=== PATIENT | male | born 1970 | race Caucasian/White ===

== ENCOUNTER 2017-05-10 16:30 | Outpatient (RCR) | payer MEDICARE, SELFPAY ==
--- NOTE | 2017-03-24 10:54 | HP.PTEVAL_ITS ---
Patient's Visit Information FERMÍN MORTON is a 46 year old M referred to Physical Therapy by JERARDO MURCIA with a diagnosis of Neuropathy/vertigo.. Date of Evaluation: 03/24/17 Physical Therapist: Nelson Garcia DPT, OC - Visit Plan Frequency: 1-2x /Week Duration: 4-6 Weeks Plan: 1-2x/week for 4 weeks for vestibular therapy, balance(as needed). Balance testing may be appropriate. Will also treat with LE exercises for stretch and muscle pump ankles as able. Next session check psoitional, possible BD and VOR ex. - Subjective Subjective: Has vertigo. Been having it for 15 years for insidous onset. Got underneath car 15 years ago and getting up he spun. Still spins with looking up and down, vibration from razor. Describes unsteady, lack of position feeling lasting a couple seconds. Sometimes when lies down at night. In between feels OK. Treated years ago with meclizine and still has some. Uses them intermittently. Activities are limtied in that he is worried about 2 yo and lots of movement at [employer] would throw him off. Walking at [employer] with a crowd can make it happen. Not changing over the years. Happens daily under the right coditions. Sleep is OK most of time after initial dizzyness subsides. Has neuropathy according to Dr. Silver. Probably from Diabetes. No falls, no stumbles but balance seems off. Feels strong. Does not work duk due to disability with deteriorating bones. Sits around alot, Goes to gym and does bike and elliptical. Treamill hurts ankles. Stay FIt 24. Able to do basic ADLs without too much problem as long as dizzyness stays away. - Pain ankles Pain Intensity (Out of 10): 0 Pain Intensity Range: 0, 7 Comment: had it for years. - Objective Walks into PT I, trasnfers with UE I, Wide BLANCA in stance. Steps are reciprocal with one rail. C/S AROM WFL and painfree today. - L hallpike. - nystagmus R HD but asymmetrical dizzyness for a few seconds. - roll test. Treated with Soto Wagner today. Oculomotor: unreamrkable, no gaze or head shake nystagmus. - head thrust. Pursuit and saccades appear normal. Has some mild transient symptoms with VOR but no functional problems. Seems to get some symptoms walking through busy gym mildly. LE strength 4+/5, Flexibility WFL, pt is obese. Sensation diminished to light touch in feet and toes. reflexes 1/3 patella and achilles. Coordination to reciprocal toe tap WNL. Very tired after climbing steps, neck feels tight a little bit. - Balance Scores Functional Gait Assessment Score: 25 % Disability: 16.6700 CATSIB Score (Max score 120 seconds): 81 - Goals Goal 1:: Vertigo 90% improved subjectively Goal Time Frame: 2-4 Weeks Goal 2:: Pt feel balance improved 50% and score 28/30 on FGA Goal Time Frame: 2-4 Weeks Goal 3:: I approp HEP for neuropathy, and vertigo as needed. Goal Time Frame: 4-6 Weeks Goal 4:: Pt back to exercise at [employer] tolerated. Goal Time Frame: 4-6 Weeks - Rehabilitation Potential Physical Therapy Diagnosis: Questionable etiology of symptoms, positional vs. unilateral vestibulopathy vs. non vest causes. Rehabilitation Potential: Questionable - Anticipated Interventions Patient/Client Instruction: Educate patient on: Condition, Plan of Care For the Purpose of:: To improve safety with gait Other: to decrease dizzy Therapeutic Exercise to Include: Balance training, Active ROM Comment: VOR and positional ex/treatments. For the Purpose of:: To improve safety Other: to decrease symptoms. Thank you for the opportunity to evaluate your patient. For Medicare and Medicare HMO plans, please review the plan of care and approve it. It will need to be FAXED BACK to us at [phone] for Medicare purposes. Please let me know if there are questions or concerns regarding this plan of care. Physician Signature: Date:
--- NOTE | 2017-05-10 17:01 | HP.PTDCSUM ---
HP - PT D/C Summary It has been my pleasure to treat FERMÍN MORTON under orders from JERARDO MURCIA, for the diagnosis of Neuropathy/vertigo. for a total of 5 visit(s). Discharge Date: Please see the following information for a summary of their discharge status. - Subjective Subjective: Went to neuro two weeks ago and doc said he had neuropathy. Moderate neuropathy and gave medicine for the pains. Dizzyness has been good. No falls , no stumbles, no trips. Just has to be careful. - Pain ankles Pain Intensity (Out of 10): 2 - Overall Improvement % Improvement: 90 - Objective Objective/Function: 28/30 FGA, doing excellent with this, much improved and good score considering his neuropathy. Walks I and steps reciprocally needing a rail to descend. - positional tests. No problems with dizzy. - Goals Goal 1:: Vertigo 90% improved subjectively Goal Progress: Goal Met Goal 2:: Pt feel balance improved 50% and score 28/30 on FGA Goal Progress: Goal Met Goal 3:: I approp HEP for neuropathy, and vertigo as needed. Goal Progress: Goal Met Goal 4:: Pt back to exercise at [employer] tolerated. Goal Progress: Goal Met - Plan Plan: D/C, - D/C Information If there are questions or concerns regarding this patient's physical therapy, please feel free to call me at [phone]. Thank you for the referral of this patient. Sincerely, Nelson Garcia, DPT, OC
== END 2017-05-10 19:00 | disposition home or self-care (01) ==
LOC: PT 16:30
PROVIDERS: Family Provider Family Medicine; PCP Family Medicine
DX: G62.9 Polyneuropathy, unspecified (principal); R42 Dizziness and giddiness
CPT/HCPCS: 97162; 97530

== ENCOUNTER → 2017-08-24 10:01 | Outpatient (CLI) | payer MEDICARE, SELFPAY ==
--- NOTE | 2017-08-24 10:01 | DT_ITS ---
This patient was seen during an EMR downtime August 21, 2017 - August 28, 2017. This patient may have a combination of paper and electronic documentation or all paper documentation. All documentation is viewable within the e-chart portion of [employer] for each patient visit.
[2017-08-29 01:27] LABS: Hemoglobin A1c 9.1 % (4.2-6.3)
[2017-08-29 01:28] LABS: BUN 12 mg/dL (7-18); BUN/Creat Ratio 15.6 RATIO (10-20); Creatinine, Serum 0.77 mg/dL (0.70-1.30); EST Glomerular Filtration Rate 115 mL/min (>60); Est Glom Filt Rate - Afr Amer 139 mL/min (>60); Glucose 211 mg/dL (74-106); Hematocrit 48.1 % (40-54); Hemoglobin 16.3 g/dl (13.0-16.5); Mean Corp Hgb Conc 33.9 g/gl (32-36); Mean Corpuscular Hgb 28.5 pg (27.0-32.0); Mean Corpuscular Volume 84.2 fL (80-94); Mean Platelet Vol. 12.5 fl (6.2-12.0); Platelet Count 229 K/mm3 (150-450); RBC Distribution Width CV 13.6 % (11.6-14.6); RBC Distribution Width SD 41.9 fl (35.1-43.9); Red Blood Count 5.71 M/mm3 (4.6-6.2); Scan Indicated on CBC? Y/N NO; White Blood Count 9.5 K/mm3 (4.4-11.0)
[2017-08-29 01:29] LABS: ALB/GLOB Ratio 0.9 RATIO (0.9-2.4); AST(SGOT) 11 U/L (15-37); Alanine Aminotransfer ALT/SGPT 31 U/L (16-61); Albumin, Serum 3.4 g/dL (3.2-5.0); Alkaline Phosphatase 115 U/L (45-117); Calcium,Total 8.4 mg/dL (8.5-10.1); Cholesterol 172 mg/dL (200); Globulin 3.8 g/dL (2.2-4.2); Protein, Total 7.2 g/dL (6.4-8.2)
[2017-08-29 01:30] LABS: Anion Gap 9 (5-15); Chloride 104 mmol/L (98-107); High Density Lipoprotein 35 mg/dL; Potassium 3.9 mmol/L (3.5-5.1); Sodium Level 140 mmol/L (136-145); Triglycerides 127 mg/dL; Very Low Density Lipoprotein 25 mg/dL (5-40)
== END ==
PROVIDERS: Family Provider Family Medicine; PCP Family Medicine; Visit Provider Family Medicine
DX: E11.40 Type 2 diabetes mellitus with diabetic neuropathy, unspecified (principal); Z79.4 Long term (current) use of insulin
CPT/HCPCS: 36415; 80053; 80061; 83036; 85027

== ENCOUNTER → 2018-04-23 10:40 | Outpatient (CLI) | payer MEDICARE, SELFPAY ==
[2018-04-23 11:08] LABS: Absolute Lymphocyte Count 1.72 X10^3/ul (0.83-4.51); Basophil# 0.03 X10^3/uL; Basophil% 0.4 % (0-1); Eosinophil# 0.07 X10^3/uL; Hematocrit 43.9 % (40-54); Hemoglobin 14.8 g/dl (13.0-16.5); Lymphocyte # 1.72 X10^3/ul (4.0); Lymphocyte % 23.7 % (19-41); Mean Corp Hgb Conc 33.7 g/gl (32-36); Mean Corpuscular Hgb 28.6 pg (27.0-32.0); Mean Corpuscular Volume 84.7 fL (80-94); Mean Platelet Vol. 11.5 fl (6.2-12.0); Monocyte# 0.44 X10^3/uL; Monocyte% 6.1 % (0-10); Neutrophil # 4.97 X10^3/uL (2.7-7.7); Neutrophil % 68.5 % (47-70); Platelet Count 235 K/mm3 (150-450); RBC Distribution Width CV 13.2 % (11.6-14.6); RBC Distribution Width SD 40.8 fl (35.1-43.9); Red Blood Count 5.18 M/mm3 (4.6-6.2); White Blood Count 7.3 K/mm3 (4.4-11.0)
[2018-04-23 11:12] LABS: POSITIVE COUNT NO; POSITIVE DIFFERENTIAL NO; POSITIVE MORPHOLOGY NO
[2018-04-23 11:33] LABS: Hemoglobin A1c 8.8 % (4.2-6.3)
[2018-04-23 11:45] LABS: ALB/GLOB Ratio 1.1 RATIO (0.9-2.4); AST(SGOT) 13 U/L (15-37); Alanine Aminotransfer ALT/SGPT 28 U/L (16-61); Albumin, Serum 3.7 g/dL (3.2-5.0); Alkaline Phosphatase 111 U/L (45-117); Anion Gap 10 (5-15); BUN 13 mg/dL (7-18); BUN/Creat Ratio 15.6 RATIO (10-20); Calcium,Total 8.6 mg/dL (8.5-10.1); Chloride 103 mmol/L (98-107); Cholesterol 180 mg/dL (200); Creatinine, Serum 0.84 mg/dL (0.70-1.30); EST Glomerular Filtration Rate 104 mL/min (>60); Est Glom Filt Rate - Afr Amer 126 mL/min (>60); Globulin 3.4 g/dL (2.2-4.2); Glucose 229 mg/dL (74-106); High Density Lipoprotein 38 mg/dL; Potassium 4.3 mmol/L (3.5-5.1); Protein, Total 7.1 g/dL (6.4-8.2); Sodium Level 139 mmol/L (136-145); Triglycerides 129 mg/dL; Very Low Density Lipoprotein 26 mg/dL (5-40)
== END ==
PROVIDERS: Family Provider Nurse Practitioner Family; PCP Nurse Practitioner Family; Referring Provider Nurse Practitioner Family; Visit Provider Nurse Practitioner Family
DX: E11.42 Type 2 diabetes mellitus with diabetic polyneuropathy (principal); E78.5 Hyperlipidemia, unspecified; I10 Essential (primary) hypertension
CPT/HCPCS: 36415; 80053; 80061; 83036; 85025

== ENCOUNTER → 2018-10-22 07:56 | Outpatient (CLI) | payer MEDICARE, SELFPAY ==
[2016-11-04 09:09] VITALS: BMI 63.6
[2018-10-22 09:39] LABS: Absolute Lymphocyte Count 1.96 X10^3/uL (0.83-4.51); Absolute Neutrophil Count 4.6 X10^3/uL (2.0-7.7); Basophil# 0.05 X10^3/uL; Basophil% 0.7 % (0-1); Eosinophil# 0.11 X10^3/uL; Eosinophils% 1.5 % (0-5); Hematocrit 44.4 % (40-54); Hemoglobin 14.6 g/dL (13.0-16.5); Lymphocyte # 1.96 X10^3/ul (4.0); Lymphocyte % 27.1 % (19-41); Mean Corp Hgb Conc 32.9 g/dL (32-36); Mean Corpuscular Hgb 28.5 pg (27.0-32.0); Mean Corpuscular Volume 86.7 fL (80-94); Mean Platelet Vol. 12.2 fl (6.2-12.0); Monocyte# 0.45 X10^3/uL; Monocyte% 6.2 % (0-10); NRBC Flagged by Analyzer 0 % (0-5); Neutrophil # 4.62 X10^3/uL (2.7-7.7); Neutrophil % 64.1 % (47-70); Platelet Count 226 K/mm3 (150-450); RBC Distribution Width CV 13.2 % (11.6-14.6); RBC Distribution Width SD 41.6 fl (35.1-43.9); Red Blood Count 5.12 M/mm3 (4.6-6.2); White Blood Count 7.2 K/mm3 (4.4-11.0)
[2018-10-22 09:52] LABS: AST(SGOT) 17 U/L (15-37); Alanine Aminotransfer ALT/SGPT 29 U/L (16-61); Albumin, Serum 3.5 g/dL (3.2-5.0); Alkaline Phosphatase 110 U/L (45-117); Anion Gap 7 (5-15); BUN 14 mg/dL (7-18); BUN/Creat Ratio 16.2 RATIO (10-20); Calcium,Total 8.6 mg/dL (8.5-10.1); Chloride 107 mmol/L (98-107); Cholesterol 178 mg/dL (200); Creatinine, Serum 0.86 mg/dL (0.70-1.30); EST Glomerular Filtration Rate 100 mL/min (>60); Est Glom Filt Rate - Afr Amer 121 mL/min (>60); Globulin 3.6 g/dL (2.2-4.2); Glucose 218 mg/dL (74-106); High Density Lipoprotein 39 mg/dL; Potassium 3.8 mmol/L (3.5-5.1); Protein, Total 7.1 g/dL (6.4-8.2); Sodium Level 140 mmol/L (136-145); Triglycerides 99 mg/dL; Very Low Density Lipoprotein 20 mg/dL (5-40)
== END ==
PROVIDERS: Family Provider Nurse Practitioner Family; PCP Nurse Practitioner Family; Referring Provider Nurse Practitioner Family; Visit Provider Nurse Practitioner Family
DX: I10 Essential (primary) hypertension (principal); E78.5 Hyperlipidemia, unspecified
CPT/HCPCS: 36415; 80053; 80061; 85025

== ENCOUNTER → 2019-04-26 07:40 | Outpatient (CLI) | payer MEDICARE, SELFPAY ==
[2016-11-04 09:09] VITALS: BMI 63.6
[2019-04-26 08:11] LABS: Hematocrit 46.2 % (40-54); Hemoglobin 15.4 g/dL (13.0-16.5); Mean Corp Hgb Conc 33.3 g/dL (32-36); Mean Corpuscular Hgb 28.5 pg (27.0-32.0); Mean Corpuscular Volume 85.4 fL (80-94); Platelet Count 255 K/mm3 (150-450); RBC Distribution Width CV 12.9 % (11.6-14.6); RBC Distribution Width SD 39.5 fl (35.1-43.9); Red Blood Count 5.41 M/mm3 (4.6-6.2); White Blood Count 8.3 K/mm3 (4.4-11.0)
[2019-04-26 08:30] LABS: Microalbumin,Random Urine 19.3 mg/L (NO RANGE EST.); Microalbumin:Creatinine Ratio 16.5 mg/g CRE (<30 mg/g CRE)
[2019-04-26 08:41] LABS: AST(SGOT) 23 U/L (15-37); Alanine Aminotransfer ALT/SGPT 40 U/L (16-61); Albumin, Serum 3.6 g/dL (3.2-5.0); Alkaline Phosphatase 110 U/L (45-117); Anion Gap 4 (5-15); BUN 12 mg/dL (7-18); Calcium,Total 8.8 mg/dL (8.5-10.1); Chloride 104 mmol/L (98-107); Creatinine, Serum 0.86 mg/dL (0.70-1.30); EST Glomerular Filtration Rate 101 mL/min (>60); Est Glom Filt Rate - Afr Amer 122 mL/min (>60); Globulin 3.6 g/dL (2.2-4.2); Glucose 191 mg/dL (74-106); Potassium 4.2 mmol/L (3.5-5.1); Protein, Total 7.2 g/dL (6.4-8.2); Sodium Level 139 mmol/L (136-145)
[2019-04-26 08:49] LABS: Hemoglobin A1c 7.6 % (4.2-6.3)
== END ==
PROVIDERS: PCP Nurse Practitioner Family; Referring Provider Nurse Practitioner Family; Visit Provider Nurse Practitioner Family
DX: E11.9 Type 2 diabetes mellitus without complications (principal); I10 Essential (primary) hypertension
CPT/HCPCS: 36415; 80053; 82043; 82570; 83036; 85027

== ENCOUNTER → 2019-10-26 07:00 | Outpatient (CLI) | payer MEDICARE, SELFPAY ==
[2019-10-26 07:51] LABS: Hematocrit 46.1 % (40-54); Hemoglobin 15.2 g/dL (13.0-16.5); Mean Corpuscular Hgb 28.7 pg (27.0-32.0); Mean Corpuscular Volume 87.1 fL (80-94); Mean Platelet Vol. 11.4 fl (6.2-12.0); Platelet Count 259 K/mm3 (150-450); RBC Distribution Width CV 13.1 % (11.6-14.6); RBC Distribution Width SD 40.8 fl (35.1-43.9); Red Blood Count 5.29 M/mm3 (4.6-6.2); White Blood Count 7.9 K/mm3 (4.4-11.0)
[2019-10-26 08:26] LABS: AST(SGOT) 13 U/L (15-37); Alanine Aminotransfer ALT/SGPT 32 U/L (16-61); Albumin, Serum 3.5 g/dL (3.2-5.0); Alkaline Phosphatase 102 U/L (45-117); Anion Gap 4 (5-15); BUN 13 mg/dL (7-18); BUN/Creat Ratio 15.4 RATIO (10-20); Calcium,Total 8.2 mg/dL (8.5-10.1); Chloride 101 mmol/L (98-107); Cholesterol 203 mg/dL (200); Creatinine, Serum 0.85 mg/dL (0.70-1.30); EST Glomerular Filtration Rate 102 mL/min (>60); Est Glom Filt Rate - Afr Amer 123 mL/min (>60); Globulin 3.5 g/dL (2.2-4.2); Glucose 253 mg/dL (74-106); High Density Lipoprotein 40 mg/dL; Potassium 3.6 mmol/L (3.5-5.1); Sodium Level 136 mmol/L (136-145); Triglycerides 90 mg/dL; Very Low Density Lipoprotein 18 mg/dL (5-40)
[2019-10-26 08:50] LABS: Hemoglobin A1c 9.4 % (3.8-5.6)
== END ==
PROVIDERS: PCP Nurse Practitioner Family; Referring Provider Nurse Practitioner Family; Visit Provider Nurse Practitioner Family
DX: E11.9 Type 2 diabetes mellitus without complications (principal); E78.5 Hyperlipidemia, unspecified; I10 Essential (primary) hypertension
CPT/HCPCS: 36415; 80053; 80061; 83036; 85027

== ENCOUNTER → 2020-05-02 07:06 | Outpatient (CLI) | payer MEDICARE, SELFPAY ==
[2020-05-02 08:16] LABS: Hematocrit 45.6 % (40-54); Hemoglobin 14.8 g/dL (13.0-16.5); Mean Corp Hgb Conc 32.5 g/dL (32-36); Mean Corpuscular Volume 86.2 fL (80-94); Mean Platelet Vol. 11.1 fl (6.2-12.0); Platelet Count 254 K/mm3 (150-450); RBC Distribution Width CV 12.7 % (11.6-14.6); RBC Distribution Width SD 39.8 fl (35.1-43.9); Red Blood Count 5.29 M/mm3 (4.6-6.2); White Blood Count 7.3 K/mm3 (4.4-11.0)
[2020-05-02 08:37] LABS: AST(SGOT) 16 U/L (15-37); Alanine Aminotransfer ALT/SGPT 35 U/L (16-61); Albumin, Serum 3.4 g/dL (3.2-5.0); Alkaline Phosphatase 102 U/L (45-117); Anion Gap 6 (5-15); BUN 13 mg/dL (7-18); BUN/Creat Ratio 15.7 RATIO (10-20); Calcium,Total 8.4 mg/dL (8.5-10.1); Chloride 104 mmol/L (98-107); Cholesterol 199 mg/dL (200); Creatinine, Serum 0.83 mg/dL (0.70-1.30); EST Glomerular Filtration Rate 104 mL/min (>60); Est Glom Filt Rate - Afr Amer 126 mL/min (>60); Globulin 3.4 g/dL (2.2-4.2); Glucose 222 mg/dL (74-106); High Density Lipoprotein 47 mg/dL; Potassium 3.8 mmol/L (3.5-5.1); Protein, Total 6.8 g/dL (6.4-8.2); Sodium Level 139 mmol/L (136-145); Triglycerides 83 mg/dL; Very Low Density Lipoprotein 17 mg/dL (5-40)
[2020-05-02 08:38] LABS: Hemoglobin A1c 9.9 % (3.8-5.6)
== END ==
PROVIDERS: PCP Nurse Practitioner Family; Referring Provider Nurse Practitioner Family; Visit Provider Nurse Practitioner Family
DX: E11.9 Type 2 diabetes mellitus without complications (principal); E78.5 Hyperlipidemia, unspecified; I10 Essential (primary) hypertension
CPT/HCPCS: 36415; 80053; 80061; 83036; 85027

== ENCOUNTER 2020-10-07 15:45 | Emergency (ER) | payer MEDICARE, SELFPAY ==
[2020-10-07 15:46] VITALS: BP 114/85; PULSE 134; RESP 24; TEMP 37.2; O2SAT 94; BMI 53.6
[2020-10-07] MEDS: MethylPREDNISolone 125 MG/2 ML Vial IV (15:58)
[2020-10-07] MEDS: DiphenhydrAMINE 50 MG/ML Syringe IV (15:59)
[2020-10-07 16:00] VITALS: BP 107/69; PULSE 107; PULSE 108; RESP 22; RESP 26; O2SAT 93
[2020-10-07] MEDS: Ipratropium/Albuterol Sulfate 3 ML AMPUL.NEB INHALATION (16:07)
--- NOTE | 2020-10-07 16:11 | EDS_ITS ---
HPI <Dr. Rachel Carpenter, DO - Last Filed: 10/07/20 16:37> History of Present Illness Chief Complaint: Allergic Reaction Detail of Chief Complaint: Allergic reaction to bee sting Informant: patient Narrative Narrative: Patient presents to the emergency department with allergic reaction that started about 20 minutes ago. Patient states that he was helping a friend with some bushes when he was stung by bees on the right hand and right arm as well as the left arm. Patient complaining of difficulty breathing. No syncope. He is never had an anaphylactic reaction like this before. Patient has history of asthma as well as type 2 diabetes. Prior similar symptoms: No PFSH <Dr. Rachel Carpenter, DO - Last Filed: 10/07/20 16:37> PFSH Home Medications glyburide 5 mg PO BIDCM 08/18/13 [History Last Taken 03/17/16 18:00] insulin glargine [Lantus SoloStar Pen] 80 units SUBCUT QHS 08/18/13 [History Last Taken 03/17/16 18:00] pioglitazone 45 mg PO DAILY 08/18/13 [History Last Taken 03/17/16 08:00] rosuvastatin [Crestor] 40 mg PO QHS 08/18/13 [History Last Taken 03/17/16 18:00] sitagliptin [Januvia] 100 mg PO DAILY 08/18/13 [History Last Taken 03/17/16 08:00] tramadol 50 mg PO Q6H PRN PRN 08/18/13 [History Last Taken 03/16/16 09:00] meclizine 25 mg PO 4X/DAY PRN PRN 03/17/16 [History Last Taken Unknown] Liraglutide [Victoza 2-Jamal] 1.2 mg SUBCUT DAILY 11/03/16 [History Last Taken Unknown] diphenhydramine HCl [Benadryl] 25 mg PO TID #20 cap 10/07/20 [Rx Last Taken Unknown] epinephrine 0.3 mg IM Q15M PRN #2 ea 10/07/20 [Rx Last Taken Unknown] famotidine [Pepcid] 20 mg PO BID #10 tab 10/07/20 [Rx Last Taken Unknown] prednisone 60 mg PO DAILY #15 tab 10/07/20 [Rx Last Taken Unknown] Allergy/AdvReac Type Severity Reaction Status Date / Time bee venom protein (honey bee) Allergy Swelling Verified 10/07/20 15:46 Penicillins Allergy RASH/LONG Verified 10/07/20 15:46 TIME TO WAKE ME UP Social History Smoking Status: Never smoker ROS <Dr. Rachel Carpenter, DO - Last Filed: 10/07/20 16:37> ROS ED ROS Narrative Allergic reaction Constitutional Constitutional ED: Reports systems reviewed and no addt'l complaints, except as documented; Denies body ache(s), change in weight or chills Eyes Eyes: Denies acute decrease in peripheral vision, change in vision, double visio n or loss of vision ENT ENT ED: Reports none; Denies ear pain, lip swelling, loss taste/smell, neck elias n, otalgia or sore throat Cardiovascular Cardiovascular: Reports none; Denies abdominal pain, chest pain with activity, leg edema, lightheadedness, palpitations, rapid heart rate or syncope Respiratory/Chest Respiratory/Chest: Reports none and dyspnea; Denies change in mental status, dry cough, hemoptysis, shortness of breath at rest or shortness of breath with exertion Gastrointestinal Gastrointestinal: Reports none; Denies abdominal pain, change in stool character, diarrhea, hematemesis, hematochezia, melena, rectal bleeding or vomiting Genitourinary Genitourinary ED: Reports none; Denies abdominal discomfort, anuria, dysuria, genital pain or polyuria Musculoskeletal Musculoskeletal: Reports none; Denies arthralgias, back pain, difficulty walking, extremity pain, muscle weakness or myalgias Integumentary Reports none; Denies abscess or rash Neurologic Neurologic: Reports none; Denies abnormal gait, confusion, focal weakness, freq uent falls, headache(s), loss of vision, numbness, paresthesias, radicular pain, vertigo or weakness Psychiatric Psychiatric: Reports systems reviewed and no addt'l complaints, except as documented and none; Denies behavioral changes, confusion, difficulty concentrating, hallucinations, suicidal ideation, tactile hallucinations or visual hallucinations Endocrine Endocrinology: Denies none, cold intolerance, excessive sweating, fatigue or heat intolerance Hematologic/Lymphatic Hematologic/Lymphatic: Reports none; Denies anemia, easy bleeding or easy bruising Allergic/Immunologic Allergic/Immunologic ED: Denies as per HPI, none, lip swelling, mouth swelling, throat swelling, tongue swelling or hives EXAM <Dr. Rachel Carpenter DO - Last Filed: 10/07/20 16:37> Physical Exam Const Vital Signs: 10/07/20 15:46 10/07/20 16:00 10/07/20 18:05 Temperature 98.9 F Temperature Source Temporal Pulse Rate 134 H 107 H 102 H Respiratory Rate 24 H 26 H 22 H Blood Pressure 114/85 H 107/69 142/63 H Blood Pressure Mean 94 81 89 Pulse Ox 94 93 98 Oxygen Delivery Method Room Air Nasal Cannula Nasal Cannula Oxygen Flow Rate (L/min) 4 2 10/07/20 20:29 Temperature Temperature Source Pulse Rate 104 H Respiratory Rate 14 Blood Pressure 136/83 H Blood Pressure Mean 100 Pulse Ox 94 Oxygen Delivery Method Room Air Oxygen Flow Rate (L/min) Positive well nourished and well developed General Appearance ED: well developed and NAD HEENT Reports TM's clear and moist mucous membranes normocephalic and atraumatic; Negative for trauma or tenderness Tympanic Membrane ED: Yes TM's clear Eyes PERRL and EOMs intact bilaterally General Eye ED: Negative for pale conjunctiva or scleral icterus Neck no lymphadenopathy, supple and no JVD General: Negative for tenderness Chest Wall inspection of chest normal and palpation of chest normal Chest: Negative for tenderness Resp clear to auscultation bilaterally Resp Narrative: Tachypnea Effort and Inspection: Negative for respiratory distress or pain with movement Auscultation: wheezes; Negative for rhonchi or diminished lung sounds Cardio regular rate, regular rhythm, S1 normal heart sound, S2 normal heart sound and no murmurs Peripheral Pulses: pulses 2+ throughout GI normal to inspection, nondistended, normoactive bowel sounds, soft to palpation, non-tender, non-distended and no masses Back/Spine no CVA tenderness and no thoracic nor lumbar tenderness Extremity normal to inspection General Extremety ED: Negative for edema General Extremity: Negative for edema Neuro oriented x3, CN's II-XII intact bilaterally, no sensory deficits noted and gait normal Sensorium / Orientation: awake, alert, oriented to person, oriented to place and oriented to time Motor Exam: strength 5/5 throughout and strength abnormal Psych mental status grossly normal Skin no wounds Skin Narrative: Diffuse erythema and flushing <Dr. Keagan Omer MD - Last Filed: 10/07/20 20:50> Physical Exam Const Vital Signs: 10/07/20 15:46 10/07/20 16:00 10/07/20 18:05 Temperature 98.9 F Temperature Source Temporal Pulse Rate 134 H 107 H 102 H Respiratory Rate 24 H 26 H 22 H Blood Pressure 114/85 H 107/69 142/63 H Blood Pressure Mean 94 81 89 Pulse Ox 94 93 98 Oxygen Delivery Method Room Air Nasal Cannula Nasal Cannula Oxygen Flow Rate (L/min) 4 2 10/07/20 20:29 Temperature Temperature Source Pulse Rate 104 H Respiratory Rate 14 Blood Pressure 136/83 H Blood Pressure Mean 100 Pulse Ox 94 Oxygen Delivery Method Room Air Oxygen Flow Rate (L/min) MDM <Dr. Rachel Carpenter DO - Last Filed: 10/07/20 16:37> [facility] Narrative Medical decision making narrative: Patient was given 0.3 mg of epi IM on arrival. IV line was established and was started on Solu-Medrol, Benadryl, and Pepcid. Patient will require an observation period in the emergency department. Care of patient turned over to evening physician awaiting observation. Reevaluation. Lab Data Labs: Laboratory Results - last 24 hr 10/07/20 18:34 POC Glucose 346 H <Dr. Keagan Omer MD - Last Filed: 10/07/20 20:50> [facility] Narrative Medical decision making narrative: Patient was turned over to me pending recheck. We have checked him multiple times here his symptoms of dyspnea completely resolved. The only symptoms he has had is itching. We watched him for multiple hours. He is gotten better. We walked him. He does not desatur ate. We will get him home at this time. We will start him on steroids. I will write for EpiPen also. We discussed reasons to return. Lab Data Labs: Laboratory Results - last 24 hr 10/07/20 18:34 POC Glucose 346 H Discharge Plan Triage Chief Complaint: Allergic Reaction ED Provider: Keagan Omer Dx/Rx/DC Orders Clinical Impression: Anaphylactic reaction to bee sting Instructions: ED Anaphylaxis Prescriptions: New prednisone 20 mg tablet 60 mg PO DAILY Qty: 15 RF: 0 diphenhydramine HCl [Benadryl] 25 mg capsule 25 mg PO TID Qty: 20 RF: 0 epinephrine 0.3 mg/0.3 mL auto-injector 0.3 mg IM Q15M PRN (Reason: anaphylaxis) Qty: 2 RF: 0 famotidine [Pepcid] 20 mg tablet 20 mg PO BID Qty: 10 RF: 0 No Action glyburide 5 MG tablet 5 mg PO BIDCM RF: 0 pioglitazone 45 MG tablet 45 mg PO DAILY RF: 0 tramadol 50 MG tablet 50 mg PO Q6H PRN PRN (Reason: Pain) RF: 0 rosuvastatin [Crestor] 40 MG tablet 40 mg PO QHS RF: 0 sitagliptin [Januvia] 100 MG tablet 100 mg PO DAILY RF: 0 insulin glargine [Lantus Solostar U-100 Insulin] 100 UNITS/ML insulin pen 80 units subcut QHS RF: 0 meclizine 25 MG tablet 25 mg PO 4X/DAY PRN PRN (Reason: Dizziness) RF: 0 Liraglutide [Victoza 2-Jamal] 0.6 MG/0.1 ML Ml 1.2 mg subcut DAILY RF: 0 Primary Care Provider: Pasha Cummins NP Referrals: Pasha Cummins NP, [employer] [Primary Care Provider] - Disposition Disposition: Home, Self Care
[2020-10-07] MEDS: Ondansetron 4 MG/2 ML Vial IV (16:12)
[2020-10-07] MEDS: Famotidine 200 MG/20 ML MDV 20 MG in 0.9% Normal Saline (Pres. free 8 ML 300 MG IV (16:22)
[2020-10-07 18:05] VITALS: BP 142/63; PULSE 102; RESP 22; O2SAT 98
[2020-10-07] MEDS: hydrOXYzine PAM 25 MG Capsule PO (18:29)
[2020-10-07 18:41] LABS: Bedside Glucose 346 mg/dL (70-110)
[2020-10-07 19:32] VITALS: O2SAT 94
[2020-10-07 20:29] VITALS: BP 136/83; PULSE 104; RESP 14; O2SAT 94
[2020-10-07 20:58] VITALS: BP 136/83; PULSE 106; RESP 22; O2SAT 93
== END 2020-10-07 21:03 | disposition home or self-care (01) ==
PROVIDERS: Emergency Provider Emergency Medicine; PCP Nurse Practitioner Family
DX: T63.441A Toxic effect of venom of bees, accidental (unintentional), initial encounter (principal); T78.2XXA Anaphylactic shock, unspecified, initial encounter; L29.9 Pruritus, unspecified; R06.02 Shortness of breath; Y92.9 Unspecified place or not applicable; E11.9 Type 2 diabetes mellitus without complications; Z79.4 Long term (current) use of insulin
CPT/HCPCS: 82962; 94640; 96365; 96372; 96375; 99283; A4216; J2405; J3490

== ENCOUNTER → 2020-11-07 06:55 | Outpatient (CLI) | payer MEDICARE, SELFPAY ==
[2020-11-07 07:32] LABS: Hematocrit 44.2 % (40-54); Hemoglobin 14.4 g/dL (13.0-16.5); Mean Corp Hgb Conc 32.6 g/dL (32-36); Mean Corpuscular Hgb 28.6 pg (27.0-32.0); Mean Corpuscular Volume 87.7 fL (80-94); Mean Platelet Vol. 11.2 fl (6.2-12.0); Platelet Count 256 K/mm3 (150-450); RBC Distribution Width CV 13.2 % (11.6-14.6); RBC Distribution Width SD 42.4 fl (35.1-43.9); Red Blood Count 5.04 M/mm3 (4.6-6.2); White Blood Count 6.9 K/mm3 (4.4-11.0)
[2020-11-07 07:54] LABS: ALB/GLOB Ratio 0.9 RATIO (0.9-2.4); AST(SGOT) 13 U/L (15-37); Alanine Aminotransfer ALT/SGPT 34 U/L (16-61); Albumin, Serum 3.2 g/dL (3.2-5.0); Alkaline Phosphatase 113 U/L (45-117); Anion Gap 5 (5-15); BUN 11 mg/dL (7-18); BUN/Creat Ratio 14.7 RATIO (10-20); Calcium,Total 8.2 mg/dL (8.5-10.1); Chloride 107 mmol/L (98-107); Cholesterol 202 mg/dL (200); Creatinine, Serum 0.75 mg/dL (0.70-1.30); EST Glomerular Filtration Rate 117 mL/min (>60); Est Glom Filt Rate - Afr Amer 141 mL/min (>60); Globulin 3.4 g/dL (2.2-4.2); Glucose 253 mg/dL (74-106); High Density Lipoprotein 44 mg/dL; Potassium 3.9 mmol/L (3.5-5.1); Protein, Total 6.6 g/dL (6.4-8.2); Sodium Level 139 mmol/L (136-145); Thyroid Stim Hormone (TSH) 1.13 uIU/mL (0.358-3.74); Triglycerides 107 mg/dL; Very Low Density Lipoprotein 21 mg/dL (5-40)
[2020-11-07 08:49] LABS: Hemoglobin A1c 10.7 % (3.8-5.6)
[2020-11-09 09:22] LABS: Vitamin D,25 Hydroxy 30.3 ng/mL
[2020-11-09 17:15] LABS: Lipoprotein A 113.5 nmol/L (<75.0)
== END ==
PROVIDERS: PCP Nurse Practitioner Family; Visit Provider Nurse Practitioner Family
DX: I10 Essential (primary) hypertension (principal); E11.9 Type 2 diabetes mellitus without complications; E78.5 Hyperlipidemia, unspecified; E66.01 Morbid (severe) obesity due to excess calories; Z68.43 Body mass index [BMI] 50.0-59.9, adult
CPT/HCPCS: 36415; 80053; 80061; 82306; 83036; 83695; 84443; 85027

== ENCOUNTER 2021-06-26 06:59 | Outpatient (CLI) | payer MEDICARE, SELFPAY ==
[2021-06-26 07:47] LABS: Hemoglobin 14.7 g/dL (13.0-16.5); Mean Corp Hgb Conc 33.4 g/dL (32-36); Mean Corpuscular Hgb 28.8 pg (27.0-32.0); Mean Corpuscular Volume 86.1 fL (80-94); Mean Platelet Vol. 10.9 fl (6.2-12.0); Platelet Count 250 K/mm3 (150-450); RBC Distribution Width CV 13.2 % (11.6-14.6); RBC Distribution Width SD 41.1 fl (35.1-43.9); Red Blood Count 5.11 M/mm3 (4.6-6.2); White Blood Count 7.3 K/mm3 (4.4-11.0)
[2021-06-26 08:06] LABS: Hemoglobin A1c 8.6 % (3.8-5.6)
[2021-06-26 08:11] LABS: AST(SGOT) 14 U/L (15-37); Alanine Aminotransfer ALT/SGPT 28 U/L (16-61); Albumin, Serum 3.5 g/dL (3.2-5.0); Alkaline Phosphatase 89 U/L (45-117); Anion Gap 4 (5-15); BUN 17 mg/dL (7-18); BUN/Creat Ratio 18.8 RATIO (10-20); Chloride 104 mmol/L (98-107); Cholesterol 207 mg/dL (200); EST Glomerular Filtration Rate 94 mL/min (>60); Est Glom Filt Rate - Afr Amer 114 mL/min (>60); Globulin 3.4 g/dL (2.2-4.2); Glucose 214 mg/dL (74-106); High Density Lipoprotein 42 mg/dL; Iron 67 ug/dL (65-175); Iron Binding Capacity,Total 273 ug/dL (250-450); PSA,Total - Annual Screen 1.04 ng/mL (0.00-4.00); Potassium 4.2 mmol/L (3.5-5.1); Protein, Total 6.9 g/dL (6.4-8.2); Sodium Level 137 mmol/L (136-145); Triglycerides 105 mg/dL; Very Low Density Lipoprotein 21 mg/dL (5-40)
== END 2021-06-26 23:59 | disposition home or self-care (01) ==
LOC: MTLAB 07:00 → LAB 07:28
PROVIDERS: PCP Nurse Practitioner Family; Referring Provider Nurse Practitioner Family; Visit Provider Nurse Practitioner Family
DX: E11.9 Type 2 diabetes mellitus without complications (principal); D64.9 Anemia, unspecified; I10 Essential (primary) hypertension; E78.5 Hyperlipidemia, unspecified; E55.9 Vitamin D deficiency, unspecified; Z12.5 Encounter for screening for malignant neoplasm of prostate
CPT/HCPCS: 36415; 80053; 80061; 82306; 83036; 83540; 83550; 84153; 85027; G0103

== ENCOUNTER → 2021-07-29 | Outpatient (CLI) | payer MEDICARE, SELFPAY ==
--- NOTE | 2021-07-29 15:16 | RAD_ITS ---
STUDY: X-RAY CHEST REASON FOR EXAM: Male, 50 years old. COUGH/FEVER, CHILLS TECHNIQUE: PA and lateral views of the chest. COMPARISON: Comparison is made with prior study dated 10/13/2011. FINDINGS: The lungs are clear and expanded. There is no demonstrated pleural abnormality. There is borderline cardiomegaly. Normal mediastinum and patrice. Normal visualized pulmonary arteries. There is atherosclerotic calcification of the aortic arch with tortuosity. There are diffuse degenerative changes of the visualized thoracic spine. Normal visualized ribs, clavicles, and shoulders. There is no demonstrated abnormality of the visualized soft tissue structures of the upper abdomen. RAD/Chest PA and Lateral IMPRESSION: Borderline cardiomegaly. No acute abnormality is seen. Electronically Signed: Arturo Burnette MD at 15:30 EDT ,
[2021-07-29 15:58] LABS: Hematocrit 44.8 % (40-54); Hemoglobin 14.7 g/dL (13.0-16.5); Mean Corp Hgb Conc 32.8 g/dL (32-36); Mean Corpuscular Hgb 28.5 pg (27.0-32.0); Mean Corpuscular Volume 86.8 fL (80-94); Mean Platelet Vol. 11.2 fl (6.2-12.0); Platelet Count 221 K/mm3 (150-450); RBC Distribution Width CV 12.9 % (11.6-14.6); RBC Distribution Width SD 40.9 fl (35.1-43.9); Red Blood Count 5.16 M/mm3 (4.6-6.2); White Blood Count 6.4 K/mm3 (4.4-11.0)
[2021-07-29 16:06] LABS: ALB/GLOB Ratio 0.9 RATIO (0.9-2.4); AST(SGOT) 27 U/L (15-37); Alanine Aminotransfer ALT/SGPT 39 U/L (16-61); Albumin, Serum 3.4 g/dL (3.2-5.0); Alkaline Phosphatase 101 U/L (45-117); Anion Gap 8 (5-15); BUN 10 mg/dL (7-18); BUN/Creat Ratio 9.4 RATIO (10-20); CRP 3.99 mg/L (0.0-3.0); Calcium,Total 8.5 mg/dL (8.5-10.1); Chloride 102 mmol/L (98-107); Creatinine, Serum 1.06 mg/dL (0.70-1.30); EST Glomerular Filtration Rate 78 mL/min (>60); Est Glom Filt Rate - Afr Amer 94 mL/min (>60); Globulin 3.8 g/dL (2.2-4.2); Glucose 410 mg/dL (74-106); Potassium 3.9 mmol/L (3.5-5.1); Protein, Total 7.2 g/dL (6.4-8.2); Sodium Level 137 mmol/L (136-145)
[2021-07-29 16:36] LABS: D-Dimer Quantitative (DVT/PE) < 0.27 FEU/ug/m (0.27-0.49)
== END | disposition home or self-care (01) ==
PROVIDERS: PCP Nurse Practitioner Family; Visit Provider Nurse Practitioner Family
DX: R05.8 Other specified cough (principal); R06.89 Other abnormalities of breathing; R50.9 Fever, unspecified; R06.2 Wheezing; Z20.822 Contact with and (suspected) exposure to COVID-19
CPT/HCPCS: 36415; 71046; 80053; 85027; 85379; 86140

== ENCOUNTER 2021-08-04 10:03 | Inpatient (IN) | payer MEDICARE, SELFPAY ==
[2021-08-04] VITALS (12 sets, daily range): BP systolic 110–175; BP diastolic 72–100; PULSE 99–118; RESP 13–30; TEMP 36.7–37.3; O2SAT 91–99; BMI 58.1; BMI 57.9
--- NOTE | 2021-08-04 11:04 | EKG12_ITS ---
Test Reason : Blood Pressure : / mmHG Vent. Rate : 109 BPM Atrial Rate : 109 BPM P-R Int : 158 ms QRS Dur : 088 ms QT Int : 330 ms P-R-T Axes : 045 -55 032 degrees QTc Int : 444 ms Sinus tachycardia Left axis deviation Inferior infarct , age undetermined Abnormal ECG Confirmed by ABRAM SPRAGUE, SAKSHI ([id number]), tape editor ANGELICA VALERIO ([id number]) on 08/06/2021 10:54:13 A M Referred By: Confirmed By:LOUIE VALVERDE MD
[2021-08-04 11:35] LABS: ALB/GLOB Ratio 0.5 RATIO (0.9-2.4); AST(SGOT) 18 U/L (15-37); Alanine Aminotransfer ALT/SGPT 32 U/L (16-61); Albumin, Serum 2.5 g/dL (3.2-5.0); Alkaline Phosphatase 116 U/L (45-117); Anion Gap 16 (5-15); BUN 21 mg/dL (7-18); BUN/Creat Ratio 22.2 RATIO (10-20); Calcium,Total 9.1 mg/dL (8.5-10.1); Chloride 94 mmol/L (98-107); Creatinine, Serum 0.95 mg/dL (0.70-1.30); EST Glomerular Filtration Rate 89 mL/min (>60); Est Glom Filt Rate - Afr Amer 108 mL/min (>60); Globulin 5.3 g/dL (2.2-4.2); Glucose 287 mg/dL (74-106); Potassium 3.6 mmol/L (3.5-5.1); Protein, Total 7.8 g/dL (6.4-8.2); Sodium Level 132 mmol/L (136-145); Troponin-I HS 7 pg/mL (3.0-78.0)
--- NOTE | 2021-08-04 11:45 | RAD_ITS ---
STUDY: X-RAY CHEST REASON FOR EXAM: Male, 50 years old. SOB TECHNIQUE: Single AP portable view of the chest. COMPARISON: Comparison is made with prior study 07/29/2021. FINDINGS: EKG likely are seen. There now is evidence of heterogeneous consolidation in the right lower lobe with blunting of the right costophrenic angle. Normal size heart. Normal mediastinum and patrice. Normal visualized pulmonary arteries. There is atherosclerotic calcification of the aortic arch with tortuosity. There are diffuse degenerative changes of the visualized thoracic spine. Normal visualized ribs, clavicles, and shoulders. There is no demonstrated abnormality of the visualized soft tissue structures of the upper abdomen. RAD/Chest 1 View (Portable) IMPRESSION: Heterogeneous right lower lobe consolidation. Blunting of the right costophrenic angle. Electronically Signed: Arturo Burnette MD at 12:16 EDT ,
--- NOTE | 2021-08-04 11:57 | NURSING ---
See downtime documentation for this patient.
[2021-08-04 12:16] LABS: Hematocrit 44.8 % (40-54); Hemoglobin 14.7 g/dL (13.0-16.5); Mean Corp Hgb Conc 32.8 g/dL (32-36); Mean Corpuscular Hgb 28.5 pg (27.0-32.0); Mean Corpuscular Volume 86.8 fL (80-94); Red Blood Count 5.16 M/mm3 (4.6-6.2); White Blood Count 16.2 K/mm3 (4.4-11.0)
[2021-08-04 12:17] LABS: Mean Platelet Vol. 11.6 fl (6.2-12.0); Platelet Count 341 K/mm3 (150-450)
[2021-08-04 12:18] LABS: Absolute Lymphocyte Count 0.91 X10^3/uL (0.83-4.51); Absolute Neutrophil Count 13.8 X10^3/uL (2.0-7.7); Basophil# 0.07 X10^3/uL; Basophil% 0.4 % (0-1); Eosinophil# 0.01 X10^3/uL; Eosinophils% 0.1 % (0-5); Lymphocyte # 0.91 X10^3/ul (0.83-4.51); Lymphocyte % 5.6 % (19-41); Monocyte% 6.2 % (0-10); Neutrophil # 13.79 X10^3/uL (2.7-7.7); Neutrophil % 84.9 % (47-70)
[2021-08-04 12:20] LABS: D-Dimer Quantitative (DVT/PE) 1.72 FEU/ug/m (0.27-0.49)
--- NOTE | 2021-08-04 14:11 | ED.VIS.DYS ---
HPI History of Present Illness Chief Complaint: Shortness of Breath Informant: patient Onset/Context/Timing Onset: Days Context: gradual Timing: Continuous Quality: Positive for Dyspnea on exertion Current Severity: Moderate Maximum Severity: Moderate Worsened by: Exertion Relieved by: Nothing Associated Symptoms cough and yellow sputum Chest Pain: Positive for None Narrative Narrative: 50-year-old male history of lung disease, enlarged heart and insulin-dependent diabetic. States that for last week he has had progressively worsening shortness of breath. He has had wheezing. Also a cough of yellowish sputum and some rib cage pain that he thinks he pulled a muscle in his ribs from coughing. States that his blood sugars have also been running high close to 500. Denies any hemoptysis. No history of DVT or PE. PE Risk Factors: Negative for Cancer, OCP + Smoking + > 35, Prior DVT or PE, Recent immobilization, Recent surgery and Recent travel Prior similar symptoms: Yes Recent Illness/Hospitalization: No PFSH PFSH Medical History (Updated 08/04/21 @ 15:[address] Jelani Taylor MD) Diabetes mellitus, type 2 GERD (gastroesophageal reflux disease) HLD (hyperlipidemia) Morbid obesity Home Medications glyburide 5 mg PO BIDCM 08/18/13 [History Last Taken 03/17/16 18:00] insulin glargine [Lantus SoloStar Pen] 80 units SUBCUT QHS 08/18/13 [History Last Taken 03/17/16 18:00] pioglitazone 45 mg PO DAILY 08/18/13 [History Last Taken 03/17/16 08:00] rosuvastatin [Crestor] 40 mg PO QHS 08/18/13 [History Last Taken 03/17/16 18:00] sitagliptin [Januvia] 100 mg PO DAILY 08/18/13 [History Last Taken 03/17/16 08:00] tramadol 50 mg PO Q6H PRN PRN 08/18/13 [History Last Taken 03/16/16 09:00] meclizine 25 mg PO 4X/DAY PRN PRN 03/17/16 [History Last Taken Unknown] Liraglutide [Victoza 2-Jamal] 1.2 mg SUBCUT DAILY 11/03/16 [History Last Taken Unknown] diphenhydramine HCl [Benadryl] 25 mg PO TID #20 cap 10/07/20 [Rx Last Taken Unknown] epinephrine 0.3 mg IM Q15M PRN #2 ea 10/07/20 [Rx Last Taken Unknown] famotidine [Pepcid] 20 mg PO BID #10 tab 10/07/20 [Rx Last Taken Unknown] prednisone 60 mg PO DAILY #15 tab 10/07/20 [Rx Last Taken Unknown] Allergy/AdvReac Type Severity Reaction Status Date / Time bee venom protein (honey bee) Allergy Swelling Verified 10/07/20 15:46 Penicillins Allergy RASH/LONG Verified 10/07/20 15:46 TIME TO WAKE ME UP Social History Smoking Status: Never smoker ROS ROS ED ROS Narrative Shortness of breath. Cough. Yellowish sputum. Review of Systems ROS Unobtainable: Denies due to encephalopathy Constitutional Constitutional ED: Denies fever(s) Eyes Eyes: Denies change in vision ENT ENT ED: Denies ear pain Cardiovascular Cardiovascular: Denies chest pain or palpitations Respiratory/Chest Respiratory/Chest: Reports cough, dyspnea and sputum Gastrointestinal Gastrointestinal: Denies abdominal pain, diarrhea, nausea or vomiting Genitourinary Genitourinary ED: Denies dysuria Musculoskeletal Musculoskeletal: Denies myalgias Integumentary Denies rash Neurologic Neurologic: Denies headache(s) Psychiatric Psychiatric: Denies depression Endocrine Endocrinology: Denies polyuria Hematologic/Lymphatic Hematologic/Lymphatic: Denies easy bruising Allergic/Immunologic Allergic/Immunologic ED: Denies urticaria EXAM Physical Exam Narrative Exam Narrative: 50-year-old male vital signs stable. Pulse ox 91% on room air borderline hypoxia. Temperature is 99. He is tachycardic at 116. H EENT exam unremarkable. Neck nontender. Lungs have few scattered expiratory wheezes. No rales or rhonchi. Heart tachycardic rate about 115 no murmur. Abdomen morbidly obese but soft. Nontender normal bowel sounds no peritoneal signs. Moving all 4 extremities. Calves are nontender without edema or cords. Neurologically is awake and alert with no focal motor deficits Const Vital Signs: 08/04/21 10:03 08/04/21 10:20 08/04/21 12:11 Temperature 99 F Temperature Source Temporal Pulse Rate 116 H 118 H Respiratory Rate 18 13 Respiratory Effort Short of Breath Respiratory Depth Normal Respiratory Pattern Tachypnea Blood Pressure 175/87 H 115/85 H Blood Pressure Mean 116 95 Pulse Ox 91 95 Oxygen Delivery Method Room Air Room Air Room Air 08/04/21 13:17 08/04/21 15:39 Temperature Temperature Source Pulse Rate 114 H 108 H Respiratory Rate 30 H 21 H Respiratory Effort Respiratory Depth Respiratory Pattern Blood Pressure 174/72 H 123/86 H Blood Pressure Mean 106 98 Pulse Ox 97 97 Oxygen Delivery Method Room Air Positive well nourished, well developed and obese; Negative for cachectic, contractures or unkempt General Appearance ED: well developed and NAD; Negative for unkempt, cachectic, contractures or pallor Nutritional Appearance: obese; Negative for cachectic HEENT Reports moist mucous membranes atraumatic; Negative for trauma Eyes PERRL and EOMs intact bilaterally General Eye ED: Negative for pale conjunctiva or scleral icterus Neck no lymphadenopathy, supple, no meningeal signs and no JVD General: Negative for tenderness Resp normal respiratory effort and No clear to auscultation bilaterally Auscultation: wheezes; Negative for rales or rhonchi Cardio regular rhythm, S1 normal heart sound, S2 normal heart sound and no murmurs; Negative for regular rate Rate: tachycardic GI non-tender, non-distended and no masses Auscultation: normoactive bowel sounds Palpation: soft; Negative for tender, guarding or rebound tenderness present Back/Spine no CVA tenderness and normal to inspection General Back: Negative for CVA tenderness or tenderness Extremity normal to inspection General Extremety ED: Negative for edema or tenderness General Extremity: Negative for edema Neuro oriented x3 Sensorium / Orientation: alert, oriented to person, oriented to place and oriented to time; Negative for orientation impaired, confused, lethargic or stuporous Motor Exam: strength 5/5 throughout Psych mental status grossly normal Appearance: Negative for unkempt Thought Process: normal thought process Skin no wounds General Skin Exam: Negative for jaundice or pallor Lesions: no lesions Rashes: no rashes MDM MDM MDM Narrative Medical decision making narrative: 50-year-old male with shortness of breath. Also with expiratory wheezes. Treated with IV Solu-Medrol DuoNeb and albuterol aerosols. Will get chest x-ray and labs. Multiple repeat exams patient is doing well. Sitting upright in a chair. He will be started on Rocephin and Zithromax. Blood cultures are being obtained. I have the hospitalist on page for admission. I The CTA of the chest and awaiting the formal radiology interpretation. Lab Data Attestation: I reviewed the patient's lab results. Lab results narrative: CBC shows a white count of 16.2. H&H of 14 and 44. Platelets of 341. D-dimer is elevated 1.72. Sodium 132. Gap is 16 BUN and creatinine are 21 and 0.9. Liver enzymes show total bilirubin 1.6. Troponin high-sensitivity is normal at 7. Chest x-ray shows a right lower lobe density. CTA performed. Awaiting official read. Looks like a right lower lobe pneumonia. Labs: Laboratory Results - last 24 hr 08/04/21 08/04/21 08/04/21 10:56 10:56 10:56 WBC 16.2 H RBC 5.16 Hgb 14.7 Hct 44.8 MCV 86.8 MCH 28.5 MCHC 32.8 RDW Std Deviation 41.0 RDW Coeff of Anna 13.0 Plt Count 341 MPV 11.6 Immature Gran % (Auto) 2.800 H Neut % (Auto) 84.9 H Lymph % (Auto) 5.6 L [place] % (Auto) 6.2 Eos % (Auto) 0.1 Baso % (Auto) 0.4 Absolute Neuts (auto) 13.8 H Absolute Lymphs (auto) 0.91 D-Dimer Quant (PE/DVT) 1.72 H* Sodium 132 L Potassium 3.6 Chloride 94 L Carbon Dioxide 22.0 Anion Gap 16 H BUN 21 H Creatinine 0.95 Est GFR (MDRD) Af Amer 108 Est GFR (MDRD) Non-Af 89 BUN/Creatinine Ratio 22.2 H Glucose 287 H Lactic Acid Calcium 9.1 Total Bilirubin 1.60 H AST 18 ALT 32 Alkaline Phosphatase 116 Troponin I High Sens 7 Total Protein 7.8 Albumin 2.5 L Globulin 5.3 H Albumin/Globulin Ratio 0.5 L 08/04/21 14:50 WBC RBC Hgb Hct MCV MCH MCHC RDW Std Deviation RDW Coeff of Anna Plt Count MPV Immature Gran % (Auto) Neut % (Auto) Lymph % (Auto) [place] % (Auto) Eos % (Auto) Baso % (Auto) Absolute Neuts (auto) Absolute Lymphs (auto) D-Dimer Quant (PE/DVT) Sodium Potassium Chloride Carbon Dioxide Anion Gap BUN Creatinine Est GFR (MDRD) Af Amer Est GFR (MDRD) Non-Af BUN/Creatinine Ratio Glucose Lactic Acid 1.3 Calcium Total Bilirubin AST ALT Alkaline Phosphatase Troponin I High Sens Total Protein Albumin Globulin Albumin/Globulin Ratio Radiography Chest X-Ray - ED: 1 View, Read by ED Physician, Read by Radiologist, Bony Structures, Chronic Changes and Right Infiltrate Diagnostic Testing: Clinical Impression(s) from Imaging Studies Chest X-Ray 08/04/21 11:45 IMPRESSION: Heterogeneous right lower lobe consolidation. Blunting of the right costophrenic angle. Electronically Signed: Arturo Burnette MD at 12:16 EDT , Chest CTA 08/04/21 14:18 IMPRESSION: Dense heterogeneous consolidation in the posterior aspect of the right middle lobe with atelectasis and/or infiltrate at the right lower lobe. Mild degree of increased markings at the left lung base. Electronically Signed: Arturo Burnette MD at 15:25 EDT , Chest x-ray shows a right lower lobe density interpreted by myself and the radiologist. Portable, single view. CAT scan being obtained. Rhythm Strip Rhythm Strip: Sinus Tach Rate: 109 Ectopy: None EKG Initial EKG: Attestation: I personally reviewed and interpreted this EKG as follows: Interpretation: No Acute Injury Pattern and Sinus Tachycardia Comments: Sinus tachycardia rate of 109. No acute signs of [place] or ischemia. Discharge Plan Dx/Rx/DC Orders Clinical Impression: Pneumonia, History of diabetes mellitus, Hypoxia, Acute dyspnea Disposition Disposition: [facility]
--- NOTE | 2021-08-04 14:18 | CT_ITS ---
STUDY: CTA CHEST REASON FOR EXAM: Male, 50 years old. RLL Mass vs Pneumonia RADIATION DOSAGE (If Supplied By Facility): CTDIvol = ( 19.74 ) mGy, DLP = ( 701.24 ) mGycm TECHNIQUE: The examination was performed with the intravenous administration of IV 100mL Isovue-370. Post-processing of the angiographic images was performed, with multiplanar reformation and 3D reconstruction. Individualized dose optimization techniques were used for this CT. COMPARISON: None. FINDINGS: Normal enhancement of the main pulmonary artery and right and left pulmonary arteries. Normal enhancement of the bilateral peripheral pulmonary arteries. There is no demonstrated pulmonary embolism. There is atherosclerotic calcification of the aortic arch with tortuosity. There is no demonstrated aortic dissection. There are calcifications of the coronary arteries. Normal mediastinum. Normal hilar regions. Normal visualized trachea and bronchi. Mild volume loss in the right lower lobe. There is heterogeneous consolidation in the posterior aspect of the right middle lobe. Loculated pleural effusion in the right hemithorax. Atelectasis and/or infiltrate at the right lung base. Mild increased markings at the left lung base. Normal chest wall structures. There are degenerative changes of thoracic spine. Normal visualized upper abdomen. CT/CTA Chest W/WO Contrast IMPRESSION: Dense heterogeneous consolidation in the posterior aspect of the right middle lobe with atelectasis and/or infiltrate at the right lower lobe. Mild degree of increased markings at the left lung base. Electronically Signed: Arturo Burnette MD at 15:25 EDT ,
[2021-08-04] MEDS: Ceftriaxone 1 GM/50 ML BAG IV (14:44)
[2021-08-04 15:33] LABS: Lactic Acid 1.3 mmol/L (0.4-1.9)
--- NOTE | 2021-08-04 15:57 | PCM.HP.STD ---
HPI - General General Date of Admission: 08/04/21 Date of Service: 08/04/21 Chief Complaint: Cough, dyspnea. HPI Narrative The patient is a 50 y/o M w/ PMHx: Morbid Obesity, HLD, HTN, GERD, Diabetes mellitus type II who presents to the [facility] ED on 08/04/21 with history of several days of progressively worsening dyspnea, worse with exertion with productive cough of yellow sputum which has been worsening with recent wheezing and associated pleuritic chest discomfort with concurrent hyperglycemia up to blood sugars of 500 prompting eventual ED evaluation. He did states subjective fevers as well as 3 days of diarrhea with last diarrheal episode the day prior to current presentation. Work-up in the ED included T 99, heart rate 116, BP 175/87, respiratory rate 18, initially 91% on room air with respiratory rate increasing up to 30, CBC with WC 16.2, hemoglobin 14.7, platelet 341 with left shift, D-dimer 1.72, CMP with sodium 132, chloride 94, BUN/creatinine 12/0.95, anion gap 16, glucose 287, T bili 1.60 otherwise hepatic profile not marked appearing, troponin 7, lactic acid 1.3, chest x-ray with heterogeneous right lower lobe consolidation and blunting the right costophrenic angle, blood culture x2 pending per ED, EKG w/ sinus tachycardia with no acute evidence of ischemia, CTPA w/ dense heterogeneous consolidation posterior aspect right middle lobe with atelectasis and/or infiltrate right lower lobe with mild degree increased markings left lung base. In the ED patient administered IV rocephin and azithromycin. Bld Cx x 2 pending per ED. Discussed with ED and he noted intention UA, acetone. [facility] Medical History (Updated 08/04/21 @ 16:[address] Diana Krause MD) Diabetes mellitus, type 2 Former tobacco use GERD (gastroesophageal reflux disease) HLD (hyperlipidemia) HTN (hypertension) Morbid obesity NICHOLE treated with BiPAP Home Medications insulin glargine [Lantus SoloStar Pen] 55 units SUBCUT BID 08/18/13 [History Last Taken 03/17/16 18:00] rosuvastatin [Crestor] 10 mg PO QHS 08/18/13 [History Last Taken 03/17/16 18:00] meclizine 25 mg PO 4X/DAY PRN PRN 03/17/16 [History Last Taken Unknown] epinephrine 0.3 mg IM Q15M PRN #2 ea 10/07/20 [Rx Last Taken Unknown] albuterol sulfate 2 puff INHALATION Q6H PRN PRN 08/04/21 [History Last Taken Unknown] azithromycin 250 mg PO DAILY 08/04/21 [History Last Taken Unknown] gabapentin 400 mg PO TID 08/04/21 [History Last Taken Unknown] guaifenesin [Mucus Relief ER] 600 mg PO Q12H PRN PRN 08/04/21 [History Last Taken Unknown] insulin aspart U-100 [Novolog Flexpen U-100 Insulin] 20 - 25 sliding scale dose SUBCUT BID 08/04/21 [History Last Taken Unknown] levocetirizine 5 mg PO QHS 08/04/21 [History Last Taken Unknown] valsartan 160 mg PO DAILY 08/04/21 [History Last Taken Unknown] Allergy/AdvReac Type Severity Reaction Status Date / Time bee venom protein (honey bee) Allergy Swelling Verified 10/07/20 15:46 Penicillins Allergy RASH/LONG Verified 10/07/20 15:46 TIME TO WAKE ME UP Family History (Updated 08/04/21 @ 16:[address] Diana Krause MD) Mother Lung cancer with associated tobacco use history. Father Heart disease CHF (congestive heart failure) Hypertension Surgical History (Updated 08/04/21 @ 16:[address] Diana Krause MD) S/P appendectomy Social History (Updated 08/04/21 @ 16:[address] Diana Krause MD) household members: spouse Smoking Status: Former smoker how long ago did patient quit smoking: Quit 30-33 years prior, started 1.5 ppd at age 9. alcohol intake: never substance use type: does not use ROS ROS Narrative Admission Review of Systems: CONSTITUTIONAL: No weight loss, chills, + subjective fever, weakness or fatigue. HEENT: Eyes: No visual loss, blurred vision, double vision or yellow sclerae. Ears, Nose, Throat: No hearing loss, sneezing, congestion, runny nose or sore throat. SKIN: No rash or itching, lesions, wounds. CARDIOVASCULAR: No chest pain, chest pressure or chest discomfort, palpitations, edema, orthopnea, syncopal events. RESPIRATORY: + Shortness of breath, cough with productive sputum, wheezing, No hemoptysis. GASTROINTESTINAL: + Anorexia, diarrhea, No nausea, vomiting, abdominal pain, melena, BRBPR. GENITOURINARY: No dysuria, frequency, urgency or retention. NEUROLOGICAL: No headache, dizziness, syncope, paralysis, ataxia, numbness or tingling in the extremities, focal weakness, change in bowel or bladder control, seizure. MUSCULOSKELETAL: + muscle, back pain, joint pain or stiffness. HEMATOLOGIC: No anemia, bleeding or bruising. LYMPHATICS: No enlarged nodes. No history of splenectomy. PSYCHIATRIC: No history of depression or anxiety. ENDOCRINOLOGIC: No reports of sweating, cold or heat intolerance. No polyuria or polydipsia. ALLERGIES: No history of asthma, hives, eczema or rhinitis. Vital Signs Vital Signs Vital Signs: 08/04/21 10:03 08/04/21 10:20 08/04/21 12:11 Temperature 99 F Temperature Source Temporal Pulse Rate 116 H 118 H Respiratory Rate 18 13 Respiratory Effort Short of Breath Respiratory Depth Normal Respiratory Pattern Tachypnea Blood Pressure 175/87 H 115/85 H Blood Pressure Mean 116 95 Pulse Ox 91 95 Oxygen Delivery Method Room Air Room Air Room Air 08/04/21 13:17 08/04/21 15:39 Temperature Temperature Source Pulse Rate 114 H 108 H Respiratory Rate 30 H 21 H Respiratory Effort Respiratory Depth Respiratory Pattern Blood Pressure 174/72 H 123/86 H Blood Pressure Mean 106 98 Pulse Ox 97 97 Oxygen Delivery Method Room Air Weight Weight: 360 lb Body Mass Index (BMI) 58.1 Physical Exam Narrative Physical Examination: General: Awake, alert, oriented x 3 and cooperative, seated upright in the ED bed, fatigued and ill-appearing, increased work of breathing and accessory muscle usage, evidence of respiratory distress Skin: Normal color, normal turgor, no icterus, no cyanosis. HEENT: AT/NC, EOMI, PERRLA, dry MM, no carotid bruits or JVD noted; however, thickened neck makes evaluation. Lungs: Diminished, greater right mid to base, increased work of breathing and accessory muscle usage noted, occasional end expiratory wheezing, more so upper airways, no rhonchi or rales. Heart: Mildly tachycardic with regular rhythm; no gallop, rub audible. Abdomen: Soft, morbidly obese, NTTP, ND, distant normal BS, no obvious evidence of HSM however habitus makes evaluation difficult Extremities: No cyanosis, clubbing, or edema. Neurological: Patient awake, alert, oriented as noted, cognitive function intact; pupils equally reactive to light and accommodation, cranial nerves II-XII grossly normal, moving all 4 extremities, no focal deficits, strength severely global decrease secondary to acute presentation Psychiatric: Affect appears fatigued, ill-appearing, evidence of respiratory distress, no acute evidence of depressive or anxiety feelings. Results Lab / Micro Data Result Diagrams: 08/04/21 10:56 08/04/21 10:56 Labs: Laboratory Results - last 24 hr 08/04/21 10:56: Sodium 132 L, Potassium 3.6, Chloride 94 L, Carbon Dioxide 22.0, Anion Gap 16 H, BUN 21 H, Creatinine 0.95, Est GFR (MDRD) Af Amer 108, Est GFR (MDRD) Non-Af 89, BUN/Creatinine Ratio 22.2 H, Glucose 287 H, Calcium 9.1, Total Bilirubin 1.60 H, AST 18, ALT 32, Alkaline Phosphatase 116, Troponin I High Sens 7, Total Protein 7.8, Albumin 2.5 L, Globulin 5.3 H, Albumin/Globulin Ratio 0.5 L 08/04/21 10:56: WBC 16.2 H, RBC 5.16, Hgb 14.7, Hct 44.8, MCV 86.8, MCH 28.5, MCHC 32.8, RDW Std Deviation 41.0, RDW Coeff of Anna 13.0, Plt Count 341, MPV 11.6, Immature Gran % (Auto) 2.800 H, Neut % (Auto) 84.9 H, Lymph % (Auto) 5.6 L, [place] % (Auto) 6.2, Eos % (Auto) 0.1, Baso % (Auto) 0.4, Absolute Neuts (auto) 13.8 H, Absolute Lymphs (auto) 0.91 08/04/21 10:56: D-Dimer Quant (PE/DVT) 1.72 H* 08/04/21 14:50: Lactic Acid 1.3 Rhythm Strip Rhythm Strip: Sinus Tach Rate: 109 Ectopy: None Radiology Impression Chest X-Ray 08/04/21 11:45 IMPRESSION: Heterogeneous right lower lobe consolidation. Blunting of the right costophrenic angle. Electronically Signed: Arturo Burnette MD at 12:16 EDT , Chest CTA 08/04/21 14:18 IMPRESSION: Dense heterogeneous consolidation in the posterior aspect of the right middle lobe with atelectasis and/or infiltrate at the right lower lobe. Mild degree of increased markings at the left lung base. Electronically Signed: Arturo Burnette MD at 15:25 EDT , Assessment & Plan Assessment/Plan (1) Acute respiratory failure with hypoxia: (2) Pneumonia: QUALIFIERS: Pneumonia type: due to unspecified organism Laterality: right Lung location: unspecified part of lung Qualified Code(s): J18.9 - Pneumonia, unspecified organism PLAN: The patient is a 50 y/o M w/ PMHx: Morbid Obesity, HLD, GERD, Diabetes mellitus type II who presents to the [facility] ED on 08/04/21 with history of several days of progressively worsening dyspnea, worse with exertion with productive cough of yellow sputum which has been worsening with recent wheezing and associated pleuritic chest discomfort with concurrent hyperglycemia up to blood sugars of 500 prompting eventual ED evaluation. #1. Acute Hypoxic Respiratory Failure secondary to RLL Community Acquired Pneumonia with Acute Bronchospasms: Will admit to PCU, maintain on oxygen with wean as tolerated to room air, cautiously use IV solumedrol given #2 given notable wheezing, continue ATC duonebs, PRN albuterol, maintain on IV Rocephin and Azithromycin, HOB, IS parameters w/ pending sputum cultures and urine antigens. Bld cx x 2 obtained in the ED. #2. Possible DKA w/ Diabetes mellitus type II with Hyperglycemia, Mildly elevated AG: Patient with glucose 227 anion gap mildly elevated at 16 in the setting of acute illness #1, will obtain urinalysis and acetone level, will administer 2L NS bolus and administer SC insulin aggressively upon admission with temporary NPO status with repeat BMP; however, if not improving or notable ketosis/acetone levels then would transition to insulin drip. Will obtain mag, phos daily w/ repletion as needed. Hemoglobin A1c requested. #3. Hypertension: Continue home regimen including valsartan although BP above goal, may need additional regimen however in the interim we will have PRN hydralazine. #4. Hyperlipidemia: We will continue patient on statin therapy. #5. GERD: We will maintain on famotidine. #6. Morbid Obesity: Weight loss and lifestyle changes encouraged, nutrition consulted. #7. NICHOLE: BIPAP q HS. #8. DVT Prophylaxis: SCDs, lovenox. Charges/Coding Visit Charges Inpatient E&M: 54884 Init Hosp L3 Procedures Hospitalists Procedures: 19545 Advncd Care Plan 30 Min
[2021-08-04 16:20] LABS: Bedside Glucose 410 mg/dL (74-106)
[2021-08-04] MEDS: 0.9% Normal Saline 1,000 ML 999 ML IV ×2 (18:27→22:03)
[2021-08-04 18:33] LABS: Mucous, Urine 0 SEEN /hpf (<or=2+); Red Blood Cells-Urine 0 SEEN /hpf (0-5); White Blood Cells 0 SEEN /hpf (0-5)
[2021-08-04 18:36] LABS: Color, Urine Straw (Yellow); Glucose, Dipstick 1000 mg/dl (Normal); Leukocyte Esterase-Dipstick Negative /ul (Negative); Nitrite-Dipstick Negative (Negative); Occult Blood-Urine 25 /ul (Negative); Protein-Dipstick 30 mg/dl (Negative); Urine Bilirubin Dipstick Negative (Negative); Urine Clarity Clear (Clear); Urine Urobilinogen Normal (Normal)
[2021-08-04] MEDS: Insulin Lispro 100 UNIT/ML INSULN.PEN 10 UNIT SC ×2 (18:37→22:04)
[2021-08-04 18:40] LABS: Ketone-Dipstick 150 mg/dl (Negative)
[2021-08-04 19:12] LABS: Bacteria RARE /hpf (None Seen); Squamous Epithelial Cells - UA 0-5 SEEN /hpf (0-5); Yeast-Urine 1+ /hpf (None Seen)
[2021-08-04] MEDS: Ipratropium/Albuterol Sulfate 3 ML AMPUL.NEB INHALATION ×2 (19:44→23:11)
[2021-08-04 19:48] LABS: Anion Gap 22 (5-15); BUN 25 mg/dL (7-18); BUN/Creat Ratio 21.7 RATIO (10-20); Calcium,Total 9.2 mg/dL (8.5-10.1); Chloride 94 mmol/L (98-107); Creatinine, Serum 1.15 mg/dL (0.70-1.30); EST Glomerular Filtration Rate 71 mL/min (>60); Est Glom Filt Rate - Afr Amer 86 mL/min (>60); Estimated Creatinine Clearance 68.58 ml/min; Glucose 419 mg/dL (74-106); Sodium Level 130 mmol/L (136-145)
[2021-08-04] MEDS: 0.9% Normal Saline 1,000 ML 150 ML IV ×2 (20:58→23:05)
[2021-08-04] MEDS: Famotidine 20 MG Tablet PO (21:04)
[2021-08-04] MEDS: Atorvastatin Calcium 80 MG Tablet PO (21:04)
[2021-08-04] MEDS: Insulin Lispro 100 UNIT/ML INSULN.PEN SC (21:06)
[2021-08-04] MEDS: Insulin Glargine-YFGN 100 UNIT/ML Pen 80 UNIT SC (21:07)
[2021-08-04] MEDS: Enoxaparin 40 MG/0.4 ML Syringe SC (21:09)
[2021-08-04] MEDS: 0.9% Saline Lock 10 ML Syringe IV (21:10)
--- NOTE | 2021-08-04 22:03 | NURSING ---
okay to give daughter Elisa Robertson information per pt. [phone]
[2021-08-04 23:21] LABS: Bedside Glucose 343 mg/dL (74-106)
[2021-08-04 23:21] LABS: Bedside Glucose 359 mg/dL (74-106)
[2021-08-04 23:58] LABS: Anion Gap 17 (5-15); BUN 26 mg/dL (7-18); BUN/Creat Ratio 27.8 RATIO (10-20); Calcium,Total 8.9 mg/dL (8.5-10.1); Chloride 101 mmol/L (98-107); Creatinine, Serum 0.94 mg/dL (0.70-1.30); EST Glomerular Filtration Rate 90 mL/min (>60); Est Glom Filt Rate - Afr Amer 109 mL/min (>60); Glucose 351 mg/dL (74-106); Potassium 3.9 mmol/L (3.5-5.1); Sodium Level 134 mmol/L (136-145)
[2021-08-05] VITALS (14 sets, daily range): BP systolic 151–170; BP diastolic 80–95; PULSE 89–120; RESP 16–22; TEMP 36.4–37.1; O2SAT 93–95
[2021-08-05] MEDS: Insulin Lispro 100 UNIT/ML INSULN.PEN 15 UNIT SC (01:33)
[2021-08-05 01:41] LABS: Bedside Glucose 317 mg/dL (74-106)
[2021-08-05 05:27] LABS: Absolute Lymphocyte Count 0.73 X10^3/uL (0.83-4.51); Absolute Neutrophil Count 18.5 X10^3/uL (2.0-7.7); Basophil# 0.07 X10^3/uL; Basophil% 0.3 % (0-1); Eosinophil# 0.02 X10^3/uL; Eosinophils% 0.1 % (0-5); Hematocrit 42.6 % (40-54); Hemoglobin 14.1 g/dL (13.0-16.5); Lymphocyte # 0.73 X10^3/ul (0.83-4.51); Lymphocyte % 3.5 % (19-41); Mean Corp Hgb Conc 33.1 g/dL (32-36); Mean Corpuscular Hgb 28.3 pg (27.0-32.0); Mean Corpuscular Volume 85.5 fL (80-94); Mean Platelet Vol. 11.5 fl (6.2-12.0); Monocyte# 1.03 X10^3/uL; Monocyte% 4.9 % (0-10); NRBC Flagged by Analyzer 0 % (0-5); Neutrophil # 18.53 X10^3/uL (2.7-7.7); Neutrophil % 88.4 % (47-70); Platelet Count 385 K/mm3 (150-450); RBC Distribution Width CV 13.3 % (11.6-14.6); RBC Distribution Width SD 41.7 fl (35.1-43.9); Red Blood Count 4.98 M/mm3 (4.6-6.2)
[2021-08-05] MEDS: 0.9% Normal Saline 1,000 ML 150 ML IV (05:33)
[2021-08-05 06:10] LABS: ALB/GLOB Ratio 0.5 RATIO (0.9-2.4); AST(SGOT) 12 U/L (15-37); Alanine Aminotransfer ALT/SGPT 30 U/L (16-61); Albumin, Serum 2.4 g/dL (3.2-5.0); Alkaline Phosphatase 110 U/L (45-117); Anion Gap 11 (5-15); BUN 27 mg/dL (7-18); Chloride 104 mmol/L (98-107); Creatinine, Serum 0.93 mg/dL (0.70-1.30); EST Glomerular Filtration Rate 91 mL/min (>60); Est Glom Filt Rate - Afr Amer 110 mL/min (>60); Globulin 5.2 g/dL (2.2-4.2); Glucose 267 mg/dL (74-106); Potassium 3.8 mmol/L (3.5-5.1); Protein, Total 7.6 g/dL (6.4-8.2); Sodium Level 135 mmol/L (136-145)
--- NOTE | 2021-08-05 06:42 | CPS ---
Pt tried hospital bipap 12/22 , was too dry and too much for pt so sleep lab machine was obtained for pt. He is on autopap at home 5-20 cmHoH Pt is comfortable and is much happier with sleep lab machine
[2021-08-05] MEDS: Insulin Lispro 100 UNIT/ML INSULN.PEN SC ×4 (06:49→21:03)
[2021-08-05] MEDS: 0.9% Saline Lock 10 ML Syringe IV (06:51)
[2021-08-05 07:11] LABS: Bedside Glucose 212 mg/dL (74-106)
[2021-08-05] MEDS: Ipratropium/Albuterol Sulfate 3 ML AMPUL.NEB INHALATION ×4 (07:24→19:05)
--- NOTE | 2021-08-05 10:08 | PN.HOSP_ITS ---
Documented by User: Mirta Fairchild NP-C 08/05/21 10:19 Subjective Subjective Patient seen and examined. Patient sitting in bed no distress noted. Patient states that he is feeling much less short of breath today currently on room air. Patient still reports a harsh productive cough. Objective Data Objective Data Vital Signs: Vital Signs Temp Pulse Resp BP Pulse Ox 98.8 F 110 H 16 170/90 H 93 08/05/21 08:33 08/05/21 08:33 08/05/21 08:33 08/05/21 08:33 08/05/21 08:33 Oxygen Delivery Method Room Air Weight: 357 lb 12.964 oz Body Mass Index (BMI) 57.9 Intake & Output: Intake and Output for Last 24 Hours 08/03/21 08/04/21 08/05/21 23:59 23:59 23:59 Intake Total 3122.5 / 3122.5 970 / 970 Output Total 0 / 0 Balance 3122.5 / 3122.5 970 / 970 Lab / Micro Data Result Diagrams: 08/05/21 04:16 08/05/21 10:06 Labs: Laboratory Results - last 24 hr 08/04/21 10:56: Sodium 132 L, Potassium 3.6, Chloride 94 L, Carbon Dioxide 22.0, Anion Gap 16 H, BUN 21 H, Creatinine 0.95, Est GFR (MDRD) Af Amer 108, Est GFR (MDRD) Non-Af 89, BUN/Creatinine Ratio 22.2 H, Glucose 287 H, Calcium 9.1, Total Bilirubin 1.60 H, AST 18, ALT 32, Alkaline Phosphatase 116, Troponin I High Sens 7, Total Protein 7.8, Albumin 2.5 L, Globulin 5.3 H, Albumin/Globulin Ratio 0.5 L 08/04/21 10:56: WBC 16.2 H, RBC 5.16, Hgb 14.7, Hct 44.8, MCV 86.8, MCH 28.5, MCHC 32.8, RDW Std Deviation 41.0, RDW Coeff of Anna 13.0, Plt Count 341, MPV 11.6, Immature Gran % (Auto) 2.800 H, Neut % (Auto) 84.9 H, Lymph % (Auto) 5.6 L , [place] % (Auto) 6.2, Eos % (Auto) 0.1, Baso % (Auto) 0.4, Absolute Neuts (auto) 13.8 H, Absolute Lymphs (auto) 0.91 08/04/21 10:56: D-Dimer Quant (PE/DVT) 1.72 H* 08/04/21 14:50: Lactic Acid 1.3 08/04/21 16:15: Acetone Level SMALL H 08/04/21 16:16: POC Glucose 410 H 08/04/21 18:25: Urine Color Straw, Urine Clarity Clear, Urine pH 5.0, Ur Specific [place] 1.020, Urine Protein 30 H, Urine Glucose (UA) 1000 H, Urine Ketones 150 A*, Urine Occult Blood 25 H, Urine Nitrite Negative, Urine Bilirubin Negative, Urine Urobilinogen Normal, Ur Leukocyte Esterase Negative, Urine RBC 0 SEEN, Urine WBC 0 SEEN, Ur Squamous Epith Cells 0-5 SEEN, Urine Bacteria RARE, Urine Mucus 0 SEEN, Urine Yeast 1+ 08/04/21 18:48: Sodium 130 L, Potassium 4.0, Chloride 94 L, Carbon Dioxide 14.0 L, Anion Gap 22 H, BUN 25 H, Creatinine 1.15, Estim Creat Clear Calc 68.58, Est GFR (MDRD) Af Amer 86, Est GFR (MDRD) Non-Af 71, BUN/Creatinine Ratio 21.7 H, Glucose 419 H, Calcium 9.2 08/04/21 20:57: POC Glucose 359 H 08/04/21 22:06: POC Glucose 343 H 08/04/21 23:30: Sodium 134 L, Potassium 3.9, Chloride 101, Carbon Dioxide 16.0 L , Anion Gap 17 H, BUN 26 H, Creatinine 0.94, Estim Creat Clear Calc 83.90, Est GFR (MDRD) Af Amer 109, Est GFR (MDRD) Non-Af 90, BUN/Creatinine Ratio 27.8 H, Glucose 351 H, Calcium 8.9 08/05/21 01:32: POC Glucose 317 H 08/05/21 04:16: WBC 21.0 H, RBC 4.98, Hgb 14.1, Hct 42.6, MCV 85.5, MCH 28.3, MCHC 33.1, RDW Std Deviation 41.7, RDW Coeff of Anna 13.3, Plt Count 385, MPV 11.5, Immature Gran % (Auto) 2.800 H, Neut % (Auto) 88.4 H, Lymph % (Auto) 3.5 L , [place] % (Auto) 4.9, Eos % (Auto) 0.1, Baso % (Auto) 0.3, Absolute Neuts (auto) 18.5 H, Absolute Lymphs (auto) 0.73 L, Nucleated RBC % 0 08/05/21 04:16: Sodium 135 L, Potassium 3.8, Chloride 104, Carbon Dioxide 20.0 L , Anion Gap 11, BUN 27 H, Creatinine 0.93, Estim Creat Clear Calc 84.80, Est GFR (MDRD) Af Amer 110, Est GFR (MDRD) Non-Af 91, BUN/Creatinine Ratio 29.0 H, Glucose 267 H, Calcium 9.0, Total Bilirubin 0.70, AST 12 L, ALT 30, Alkaline Phosphatase 110, Total Protein 7.6, Albumin 2.4 L, Globulin 5.2 H, Albumin/Globulin Ratio 0.5 L 08/05/21 06:48: POC Glucose 212 H Micro: Microbiology 08/04/21 14:45 Blood Culture (Wb) - Anticubital Left Blood Culture - Preliminary 08/04/21 17:45 Mucosa - Nasopharyngeal Respiratory Panel (PCR) - Final 08/04/21 18:25 Urine, Clean Catch Legionella Antigen - Final 08/04/21 18:25 Urine, Clean Catch Streptococcus pneumoniae Antigen (M - Final Radiography Diagnostic Testing: Radiology Impression Chest X-Ray 08/04/21 11:45 IMPRESSION: Heterogeneous right lower lobe consolidation. Blunting of the right costophrenic angle. Electronically Signed: Arturo Burnette MD at 12:16 EDT , Chest CTA 08/04/21 14:18 IMPRESSION: Dense heterogeneous consolidation in the posterior aspect of the right middle lobe with atelectasis and/or infiltrate at the right lower lobe. Mild degree of increased markings at the left lung base. Electronically Signed: Arturo Burnette MD at 15:25 EDT , Rhythm Strip Rhythm Strip: Sinus Tach Rate: 109 Ectopy: None Physical Exam Const alert, oriented x3 and no apparent distress HEENT head/scalp atraumatic Head and Scalp: normocephalic Eyes conjunctivae normal and no scleral icterus Neck supple General: trachea midline Resp normal respiratory effort Effort and Inspection: able to speak in complete sentences and symmetric chest movement Auscultation: crackles diffuse and diminished lung sounds Cardio regular rate, regular rhythm, S1 normal heart sound, S2 normal heart sound and peripheral pulses 2+ throughout Rate: tachycardic GI normal to inspection, nondistended, normoactive bowel sounds, soft to palpation and non-tender Extremity normal to inspection, full ROM and no clubbing, cyanosis or edema Peripheral Pulses: Yes pulses 2+ throughout Skin no rashes or lesions noted Neuro oriented x3, no focal motor deficits and no sensory deficits noted Sensorium / Orientation: awake and alert Speech: speech normal Psych affect normal Assessment & Plan Assessment/Plan (1) Pneumonia: QUALIFIERS: Laterality: right Lung location: unspecified part of lung Pneumonia type: due to unspecified organism Qualified Code(s): J18.9 - Pneumonia, unspecified organism PLAN: 1. Acute respiratory failure with hypoxia secondary to pneumonia -Patient currently on room air with oxygen saturations of 93%. -Continue IV Unasyn -Continue as needed nebulizer treatments as well as IV methylprednisolone -encourage incentive spirometry -IV fluids decreased to 75 mL/h as patient is now taking p.o. fluids 2. Diabetes mellitus type II -Continue Lantus 80 units nightly -ACH S blood sugars with sliding scale insulin ordered 3. Hyperlipidemia -Continue statin therapy 4. Hypertension -We will resume patient's valsartan -As needed hydralazine ordered -Vital signs per protocol DVT prophylaxis-subcu Lovenox This patient was seen by DARRYL HarrisC under the supervision of Dr. Mendez. 12 minutes spent in clinical coordination of patient's plan of care. Documented by User: Dr. Jimmy Mendez MD 08/05/21 15:05 Subjective Subjective Follow-up for right complicated pneumonia with loculated effusion. Objective Data Lab / Micro Data Result Diagrams: 08/05/21 04:16 08/05/21 10:06 Physical Exam Narrative Patient admitted for 1 week history of cough, wheezing, productive yellow sputum, shortness of breath on exertion and right rib cage pain, pleuritic in nature mainly on coughing. Chest CTA reviewed. General: Alert, Oriented x3, Cooperative, morbid obesity BMI 57.8 kg per square HEENT: Atraumatic, PERRLA, EOMI, Normocephalic Oral: No Gingival or Mucosal Lesions/ Ulcerations Neck: Supple, No JVD, Negative Carotid Bruits Lungs: Air entry diminished on posterior lateral of right chest. Uses BiPAP at night. Bilateral diffuse wheezing. Cardiovascular: Regular rate, Regular Rhythm, Normal S1, Normal S2, No murmurs Abdomen: Bowel Sounds Present, Soft, Non Tender, Non-Distended : No renal angle tenderness. No suprapubic tenderness. Extremities: No edema, Capillary Refill Less than 3 Seconds Skin: No rashes, No breakdown Musculoskeletal: No Tenderness to Palpation of Joints or Extremities Neurological: Cranial nerves II-XII grossly intact, DTR 2+/4 and Symmetrical, Neuro grossly intact Psych/Mental Status: Normal Affect, Appropriate. Assessment & Plan Assessment/Plan (1) Pneumonia: QUALIFIERS: Laterality: right Lung location: unspecified part of lung Pneumonia type: due to unspecified organism Qualified Code(s): J18.9 - Pneumonia, unspecified organism PLAN: This patient was seen in conjunction with PRISCILLA Kirby. I have independently interviewed and examined the patient and reviewed pertinent history, examination findings, laboratory and plan of management. I have reviewed the note and agree with the documented findings with the few additional points. In brief, patient is 49-year-old morbidly obese gentleman with history of obesity hypoventilation syndrome/NICHOLE on BiPAP admitted with 1 week history of productive cough with yellow sputum, shortness of breath on exertion and right pleuritic chest consistent with 1. Complicated right sided multifocal pneumonia. Chest CT individually reviewed. Shows heterogeneous consolidation of posterior right middle lobe, atelectasis infiltrate in right lung base along with loculated effusion. Mild left lung base atelectasis. Urinary antigens are negative. Respiratory panel negative. Preliminary anaerobic culture bottle shows gram-positive cocci. Gram stain shows GPC As there is loculated effusion and chest CT scan with gram-positive cocci in blood culture there is suspicion of staph infection therefore need MRSA coverage. Started empirically on IV vancomycin. MRSA nasal screen ordered. 2. Hypertension: Blood pressure is elevated. Losartan increased 200 mg daily. Antihypertensive medication optimized. 3. DKA with diabetes mellitus type 2 with hyperglycemia: Patient was in DKA with elevated anion gap 16, 22. Anion gap closed x2. Bicarb was 14, increased to 20. Serum acetone level was low positive. DKA resolved. Patient was adequately resuscitated Glucose is from 300 to 350 mg/dL range. Started on Humalog 20 units 3 times daily AC and patient is on Lantus insulin 8 units subcu at bedtime daily. 4. Obesity hypoventilation syndrome: Continue BiPAP at night. Patient on levocetirizine. Mucinex D, incentive spirometry and Pep, bronchopulmonary hygiene. 5. Dyslipidemia on a statin VT prophylaxis, high risk: Enoxaparin 40 mg SQ twice daily I have discussed my assessment with PRISCILLA Kirby and orders have been reviewed. Total time of the visit including total time spent in counseling or coordination of care, (more than 50% of the total time, spent in obtaining medical information from nurses and other ancillary care providers,explaining to the patient about labs, imaging, diagnosis and management), review of CT scan, meds reconciliation, review of labs is 40 minutes. I spent 25 minutes, and PRISCILLA Schmid spent 15 minutes Charges/Coding Visit Charges Inpatient E&M: 54519 Subs Hosp L3
[2021-08-05] MEDS: Famotidine 20 MG Tablet PO ×2 (10:20→20:56)
[2021-08-05] MEDS: Enoxaparin 40 MG/0.4 ML Syringe SC ×2 (10:20→20:56)
[2021-08-05 10:40] LABS: Anion Gap 12 (5-15); BUN 25 mg/dL (7-18); BUN/Creat Ratio 29.6 RATIO (10-20); Chloride 102 mmol/L (98-107); Creatinine, Serum 0.84 mg/dL (0.70-1.30); EST Glomerular Filtration Rate 101 mL/min (>60); Est Glom Filt Rate - Afr Amer 123 mL/min (>60); Estimated Creatinine Clearance 93.89 ml/min; Glucose 238 mg/dL (74-106); Potassium 3.5 mmol/L (3.5-5.1); Sodium Level 134 mmol/L (136-145)
[2021-08-05 11:04] LABS: Hemoglobin A1c 9.3 % (3.8-5.6)
--- NOTE | 2021-08-05 11:05 | CASEMGMT ---
RN DIAZ Face to Face with patient for initial transition planning/care coordination assessment. RN CM introduced self and role at [facility]. Patient lying in bed, alert and oriented. Patient willing to participate in assessment and is able to answer all questions appropriately. Care providers, pharmacy, and demographics verified. Patient wishes to discharge home, denies need for home health at this time. Patient states he has no further needs or concerns at this time. CM to follow for discharge planning needs that may arise. 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 Patient states he is independent at home. Transportation: self, DME/HHC: Patient has bipap at home. Patient states he prefers [facility] as that is where his Bipap is through. No previous HHC. Will monitor for home oxygen and pulse ox at discharge. Disposition Plan: Patient to discharge home with family support and follow-up plans in place. Doris HERNÁNDEZ, RN, CM
[2021-08-05] MEDS: Losartan Potassium 50 MG Tablet PO ×2 (12:51→16:26)
[2021-08-05 13:00] LABS: Bedside Glucose 320 mg/dL (74-106)
[2021-08-05] MEDS: 0.9% Normal Saline 1,000 ML 75 ML IV (14:29)
[2021-08-05] MEDS: Gabapentin 400 MG Capsule PO (16:26)
[2021-08-05] MEDS: guaiFENesin/D-Methorphan TAB.SR.12H 1 TABLET PO ×2 (16:27→20:56)
[2021-08-05] MEDS: Insulin Lispro 100 UNIT/ML INSULN.PEN 20 UNIT SC (16:29)
[2021-08-05 16:41] LABS: Bedside Glucose 346 mg/dL (74-106)
--- NOTE | 2021-08-05 17:57 | PCM.RX.CS ---
Consult Pharmacy has been consulted to manage selected antiobiotic: Vancomycin Type of Consult: New start Suspected Infection: Pneumonia, Bacteremia Labs: Sodium 134 mmol/L (136-145) L 08/05/21 10:06 Potassium 3.5 mmol/L (3.5-5.1) 08/05/21 10:06 Chloride 102 mmol/L (98-107) 08/05/21 10:06 Carbon Dioxide 20.0 mmol/L (21.0-32.0) L 08/05/21 10:06 Anion Gap 12 (5-15) 08/05/21 10:06 BUN 25 mg/dL (7-18) H 08/05/21 10:06 Creatinine 0.84 mg/dL (0.70-1.30) 08/05/21 10:06 Est GFR (MDRD) Af Amer 123 mL/min (>60) 08/05/21 10:06 Est GFR (MDRD) Non-Af 101 mL/min (>60) 08/05/21 10:06 BUN/Creatinine Ratio 29.6 RATIO (10-20) H 08/05/21 10:06 Glucose 238 mg/dL (74-106) H 08/05/21 10:06 Microbiology: Microbiology 08/05/21 08:40 Sputum, Expectorated/Coughed Gram Stain - Final 08/04/21 14:45 Blood Culture (Wb) - Anticubital Left Blood Culture - Preliminary 08/04/21 17:45 Mucosa - Nasopharyngeal Respiratory Panel (PCR) - Final 08/04/21 18:25 Urine, Clean Catch Legionella Antigen - Final 08/04/21 18:25 Urine, Clean Catch Streptococcus pneumoniae Antigen (M - Final Goal Trough: 15-20 mcg/mL Pharmacy Plan for Drug Dosing: NEW START IV VANCOMYCIN Consulting Physician: Dr. Mendez Indication:Pneumonia, (+) 1/2 Blood cultures (GPC clusters) Goal Trough: 15-20 SrCr: 0.84 CrCl: > 100ml/hr Comments: 2g IV initial dose ordered and administered 08/05/21 @1626 Vancomcyin Dose: 1500mg IV Q8h to start 08/06/21 @0000 Pending Level: 08/06/21 @1530, prior to 4th total dose per protocol Pharmacy Service will continue to monitor and adjust dosing as required.
[2021-08-05] MEDS: Atorvastatin Calcium 80 MG Tablet PO (20:56)
[2021-08-05] MEDS: Loratadine 10 MG Tablet PO (20:56)
[2021-08-05] MEDS: Insulin Glargine-YFGN 100 UNIT/ML Pen 80 UNIT SC (21:04)
--- NOTE | 2021-08-05 22:21 | CPS ---
pt did not want to wear SL cpap machine at this time
[2021-08-05 22:26] LABS: Bedside Glucose 329 mg/dL (74-106)
[2021-08-06] VITALS (17 sets, daily range): BP systolic 105–194; BP diastolic 81–98; PULSE 77–124; RESP 18–26; TEMP 36–36.8; O2SAT 93–96
[2021-08-06] MEDS: hydrALAZINE 20 MG/ML Vial 10 MG IV (03:41)
[2021-08-06] MEDS: 0.9% Saline Lock 10 ML Syringe IV ×2 (03:43→06:02)
[2021-08-06] MEDS: Gabapentin 400 MG Capsule PO ×3 (05:58→20:39)
[2021-08-06 06:21] LABS: Hematocrit 40.8 % (40-54); Hemoglobin 13.6 g/dL (13.0-16.5); Mean Corp Hgb Conc 33.3 g/dL (32-36); Mean Corpuscular Hgb 28.6 pg (27.0-32.0); Mean Corpuscular Volume 85.9 fL (80-94); Mean Platelet Vol. 10.8 fl (6.2-12.0); POSITIVE COUNT YES; POSITIVE MORPHOLOGY YES; Platelet Count 416 K/mm3 (150-450); RBC Distribution Width CV 13.5 % (11.6-14.6); RBC Distribution Width SD 42.5 fl (35.1-43.9); Red Blood Count 4.75 M/mm3 (4.6-6.2); White Blood Count 22.5 K/mm3 (4.4-11.0)
[2021-08-06 06:24] LABS: Differential Indicated MANUAL DIFF
[2021-08-06 06:36] LABS: Platelet Estimate ADEQUATE (ADEQ); Red Cell Morphology NORM C+C NORMAL (NORM C&C)
[2021-08-06 06:41] LABS: Absolute Lymphocyte Count 0.68 X10^3/uL (0.83-4.51); Absolute Neutrophil Count 19.4 X10^3/uL (2.0-7.7); Lymphocyte 3 % (19-41); Monocyte 6 % (0-10); Myelocyte 5 % (0-0); Neutrophil-Band 4 % (0-5); Neutrophil-Segmented 82 % (47-70); Total Cells Counted 100 (MANUAL DIFF)
[2021-08-06] MEDS: Losartan Potassium 100 MG Tablet PO (06:46)
[2021-08-06] MEDS: amLODIPine 5 MG Tablet PO (06:46)
[2021-08-06 06:50] LABS: Anion Gap 11 (5-15); BUN 23 mg/dL (7-18); BUN/Creat Ratio 32.7 RATIO (10-20); Chloride 106 mmol/L (98-107); EST Glomerular Filtration Rate 125 mL/min (>60); Est Glom Filt Rate - Afr Amer 151 mL/min (>60); Estimated Creatinine Clearance 112.66 ml/min; Glucose 274 mg/dL (74-106); Potassium 3.7 mmol/L (3.5-5.1); Sodium Level 138 mmol/L (136-145)
[2021-08-06] MEDS: Ipratropium/Albuterol Sulfate 3 ML AMPUL.NEB INHALATION ×4 (07:20→19:50)
[2021-08-06] MEDS: Insulin Lispro 100 UNIT/ML INSULN.PEN 20 UNIT SC ×3 (08:08→16:37)
[2021-08-06] MEDS: Insulin Lispro 100 UNIT/ML INSULN.PEN SC ×4 (08:08→20:36)
[2021-08-06 09:25] LABS: Bedside Glucose 341 mg/dL (74-106)
--- NOTE | 2021-08-06 09:40 | PN.HOSP_ITS ---
Documented by User: Mirta Fairchild NP-Jasbir 08/06/21 09:51 Subjective Subjective Seen and examined. Patient sitting in bed no distress noted. Patient assisted to chair, increased work of breathing noted however patient not hypoxic. Patient reports that he still gets short of breath when he is up ambulating and after coughing. Objective Data Objective Data Vital Signs: Vital Signs Temp Pulse Resp BP Pulse Ox 97.6 F L 120 H 22 H 147/81 H 94 08/06/21 08:00 08/06/21 08:00 08/06/21 08:00 08/06/21 08:00 08/06/21 08:00 Oxygen Delivery Method Room Air Weight: 363 lb 5.149 oz Body Mass Index (BMI) 57.9 Intake & Output: Intake and Output for Last 24 Hours 08/04/21 08/05/21 08/06/21 23:59 23:59 23:59 Intake Total 3122.5 / 3122.5 2974 / 3224 2454 / 2454 Output Total 0 / 0 Balance 3122.5 / 3122.5 2974 / 3224 2454 / 2454 Lab / Micro Data Result Diagrams: 08/06/21 05:45 08/06/21 05:45 Labs: Laboratory Results - last 24 hr 08/05/21 04:16: Hemoglobin A1c 9.3 H 08/05/21 10:06: Sodium 134 L, Potassium 3.5, Chloride 102, Carbon Dioxide 20.0 L , Anion Gap 12, BUN 25 H, Creatinine 0.84, Estim Creat Clear Calc 93.89, Est GFR (MDRD) Af Amer 123, Est GFR (MDRD) Non-Af 101, BUN/Creatinine Ratio 29.6 H, Glucose 238 H, Calcium 9.0 08/05/21 12:49: POC Glucose 320 H 08/05/21 16:29: POC Glucose 346 H 08/05/21 20:51: POC Glucose 329 H 08/06/21 05:45: WBC 22.5 H, RBC 4.75, Hgb 13.6, Hct 40.8, MCV 85.9, MCH 28.6, MCHC 33.3, RDW Std Deviation 42.5, RDW Coeff of Anna 13.5, Plt Count 416, MPV 10.8, Neut % (Auto) Not Reportable, Absolute Neuts (auto) 19.4 H, Absolute Lymphs (auto) 0.68 L, Total Counted 100, Neutrophils % (Manual) 82 H, Band Neutrophils % 4, Lymphocytes % (Manual) 3 L, Monocytes % (Manual) 6, Myelocytes % 5 H, Diff Path Review May foll, Platelet Estimate ADEQUATE, RBC Morphology NORM C+C 08/06/21 05:45: Sodium 138, Potassium 3.7, Chloride 106, Carbon Dioxide 21.0, Anion Gap 11, BUN 23 H, Creatinine 0.70, Estim Creat Clear Calc 112.66, Est GFR (MDRD) Af Amer 151, Est GFR (MDRD) Non-Af 125, BUN/Creatinine Ratio 32.7 H, Glucose 274 H, Calcium 9.0 08/06/21 08:04: POC Glucose 341 H Micro: Microbiology 08/04/21 14:45 Blood Culture (Wb) - Anticubital Left Blood Culture - Preliminary Staphylococcus aureus 08/05/21 08:40 Sputum, Expectorated/Coughed Gram Stain - Final 08/04/21 17:45 Mucosa - Nasopharyngeal Respiratory Panel (PCR) - Final 08/04/21 18:25 Urine, Clean Catch Legionella Antigen - Final 08/04/21 18:25 Urine, Clean Catch Streptococcus pneumoniae Antigen (M - Final Rhythm Strip Rhythm Strip: Sinus Tach Rate: 109 Ectopy: None Physical Exam Const alert, oriented x3 and no apparent distress HEENT head/scalp atraumatic Head and Scalp: normocephalic Eyes conjunctivae normal and no scleral icterus Neck supple Resp normal air movement Effort and Inspection: able to speak in complete sentences, symmetric chest movement and tachypneic Auscultation: diminished lung sounds Cardio regular rate, regular rhythm, S1 normal heart sound and S2 normal heart sound GI normal to inspection, nondistended, normoactive bowel sounds, soft to palpation and non-tender Extremity normal to inspection, full ROM and no clubbing, cyanosis or edema Skin no rashes or lesions noted Neuro oriented x3, no focal motor deficits and no sensory deficits noted Sensorium / Orientation: awake and alert Psych affect normal Assessment & Plan Assessment/Plan (1) Pneumonia: QUALIFIERS: Laterality: right Lung location: unspecified part of lung Pneumonia type: due to unspecified organism Qualified Code(s): J18.9 - Pneumonia, unspecified organism (2) Acute dyspnea: PLAN: 1. Pneumonia with acute dyspnea -Continue Unasyn and vancomycin -Initiated yesterday due to 1 blood culture being positive for staph aureus, second blood culture pending -Patient not hypoxic but continues to be tachypneic and tachycardic, on room air -Continue IV methylprednisolone as well as needed breathing treatments -Encourage incentive spirometry and use of PEP 2. Diabetes mellitus type 2 -Continue Lantus 80 units nightly -Continue ACH S blood sugars with sliding scale insulin 3. Hyperlipidemia -Continue statin therapy 4. Hypertension -Continue amlodipine, losartan -Vital signs per protocol -As needed hydralazine ordered DVT prophylaxis-subcu Lovenox This patient was seen by Mirta Fiarchild NP-C under the supervision of Dr. Mendez. 12 minutes spent in clinical coordination of patient's plan of care. Documented by User: Dr. Jimmy Mendez MD 08/06/21 13:39 Subjective Subjective Follow-up for complicated pneumonia Patient is still sinus tachycardic and tachypneic although pulse ox 94% on room air. Afebrile. Objective Data Lab / Micro Data Result Diagrams: 08/06/21 05:45 08/06/21 05:45 Physical Exam Narrative Patient is still tachycardic and tachypneic. Not hypoxic. Bilateral audible wheezing although not clear with there is acute or chronic. Physical exam General: Alert, Oriented x3, Cooperative, morbid obesity BMI 57.8 kg per square HEENT: Atraumatic, PERRLA, EOMI, Normocephalic Oral: No Gingival or Mucosal Lesions/ Ulcerations Neck: Supple, No JVD, Negative Carotid Bruits Lungs: Air entry diminished on posterior lateral of right chest. Uses BiPAP at night. Bilateral diffuse wheezing. Cardiovascular: Sinus tachycardic, Normal S1, Normal S2, No murmurs Abdomen: Bowel Sounds Present, Soft, Non Tender, Non-Distended : No renal angle tenderness. No suprapubic tenderness. Extremities: No edema, Capillary Refill Less than 3 Seconds Skin: No rashes, No breakdown Musculoskeletal: No Tenderness to Palpation of Joints or Extremities Neurological: Cranial nerves II-XII grossly intact, DTR 2+/4 and Symmetrical, Neuro grossly intact Psych/Mental Status: Normal Affect, Appropriate. Assessment & Plan Assessment/Plan (1) Pneumonia: QUALIFIERS: Laterality: right Lung location: unspecified part of lung Pneumonia type: due to unspecified organism Qualified Code(s): J18.9 - Pneumonia, unspecified organism PLAN: This patient was seen in conjunction with PRISCILLA Kirby. I have independently interviewed and examined the patient and reviewed pertinent history, examination findings, laboratory and plan of management. I have reviewed the note and agree with the documented findings with the few additional points. In brief, patient is 49-year-old morbidly obese gentleman with history of obesity hypoventilation syndrome/NICHOLE on BiPAP admitted with 1 week history of productive cough with yellow sputum, shortness of breath on exertion and right pleuritic chest consistent with 1. Complicated right sided multifocal pneumonia. Chest CT individually reviewed. It shows heterogeneous consolidation of posterior right middle lobe, atelectasis infiltrate in right lung base along with loculated effusion. Mild left lung base atelectasis. Urinary antigens are negative. Respiratory panel negative. Preliminary anaerobic culture bottle shows gram-positive cocci. Gram stain shows GPC in clusters, 3+ staph. 08/06: Patient was started on IV vancomycin started empirically on IV vancomycin. MRSA nasal screen ordered. Discussed with the ciaio lumite injector and requested pulmonary consult for complicated multifocal right-sided parapneumonic pneumonia. Encourage incentive spirometry and Pep. Patient is afebrile, tachycardic and tachypneic and wheezing but not hypoxic. Leukocytosis probably due to IV Solu-Medrol transitioned to prednisone. 2. Hypertension: Blood pressure is elevated. Losartan increased 200 mg daily. Antihypertensive medication optimized. 3. DKA with diabetes mellitus type 2 with hyperglycemia: Patient was in DKA with elevated anion gap 16, 22. Anion gap closed x2. Bicarb was 14, increased to 20. Serum acetone level was low positive. DKA resolved. Patient was adequately resuscitated Glucose is from 300 to 350 mg/dL range partly from IV Solu-Medrol which is transition to prednisone admission of Started on Humalog 20 units 3 times daily AC and patient is on Lantus insulin 80 units subcu at bedtime daily. 4. Obesity hypoventilation syndrome: Patient did not had PFT Continue BiPAP at night. Patient on levocetirizine. Mucinex D, incentive spirometry and Pep, bronchopulmonary hygiene. 5. Dyslipidemia on a statin VT prophylaxis, high risk: Enoxaparin 40 mg SQ twice daily I have discussed my assessment with PRISCILLA Kirby and orders have been reviewed. Total time of the visit including total time spent in counseling or coordination of care, (more than 50% of the total time, spent in obtaining medical information from nurses and other ancillary care providers,explaining to the patient about labs, imaging, diagnosis and management), review of CT scan, meds reconciliation, review of labs is 40 minutes. I spent 25 minutes, and PRISCILLA Schmid spent 15 minutes Charges/Coding Visit Charges Inpatient E&M: 14097 Subs Hosp L2
[2021-08-06] MEDS: Famotidine 20 MG Tablet PO ×2 (09:50→20:39)
[2021-08-06] MEDS: guaiFENesin/D-Methorphan TAB.SR.12H 1 TABLET PO ×2 (09:50→20:39)
[2021-08-06] MEDS: Enoxaparin 40 MG/0.4 ML Syringe SC ×2 (09:50→20:38)
--- NOTE | 2021-08-06 10:36 | NURSING ---
Approached patient regarding [facility] Patient Link program. Pt states appreciates discussion, but declines to participate in the program. States it sounds like too much responsiblity and he is going on vacation to [place] in early August.
[2021-08-06 11:56] LABS: Bedside Glucose 310 mg/dL (74-106)
--- NOTE | 2021-08-06 13:21 | RAD_ITS ---
STUDY: X-RAY CHEST REASON FOR EXAM: Male, 50 years old. complicated pneumonia with right effusion TECHNIQUE: XR Chest 2 Views COMPARISON: Two days ago. FINDINGS: There is a right pleural effusion. Right infiltrate. Normal size heart. Normal mediastinum and patrice. Normal visualized pulmonary arteries. There is atherosclerotic calcification of the aortic arch with tortuosity. There are diffuse degenerative changes of the visualized thoracic spine. There is degenerative osteoarthritis of the bilateral shoulders. There is no demonstrated abnormality of the visualized soft tissue structures of the upper abdomen. RAD/Chest PA and Lateral IMPRESSION: Pulmonary findings appear worse. Electronically Signed: Leo Torres MD at 16:49 EDT ,
[2021-08-06 16:32] LABS: Vancomycin, Trough Level 12.4 ug/mL (5.0-15.0)
[2021-08-06 16:56] LABS: Bedside Glucose 276 mg/dL (74-106)
--- NOTE | 2021-08-06 17:29 | PCM.RX.CS ---
Consult Pharmacy has been consulted to manage selected antiobiotic: Vancomycin Type of Consult: Follow-up Suspected Infection: Pneumonia Labs: Sodium 138 mmol/L (136-145) 08/06/21 05:45 Potassium 3.7 mmol/L (3.5-5.1) 08/06/21 05:45 Chloride 106 mmol/L (98-107) 08/06/21 05:45 Carbon Dioxide 21.0 mmol/L (21.0-32.0) 08/06/21 05:45 Anion Gap 11 (5-15) 08/06/21 05:45 BUN 23 mg/dL (7-18) H 08/06/21 05:45 Creatinine 0.70 mg/dL (0.70-1.30) 08/06/21 05:45 Est GFR (MDRD) Af Amer 151 mL/min (>60) 08/06/21 05:45 Est GFR (MDRD) Non-Af 125 mL/min (>60) 08/06/21 05:45 BUN/Creatinine Ratio 32.7 RATIO (10-20) H 08/06/21 05:45 Glucose 274 mg/dL (74-106) H 08/06/21 05:45 Vancomycin Trough 12.4 ug/mL (5.0-15.0) 08/06/21 15:30 Microbiology: Microbiology 08/04/21 14:50 Blood Culture (Wb) - Right Hand Blood Culture - Preliminary No growth in 48 hours. 08/05/21 08:40 Sputum, Expectorated/Coughed Gram Stain - Final 08/05/21 08:40 Sputum, Expectorated/Coughed Respiratory Culture - Preliminary Staphylococcus aureus 08/04/21 14:45 Blood Culture (Wb) - Anticubital Left Blood Culture - Preliminary Staphylococcus aureus 08/04/21 17:45 Mucosa - Nasopharyngeal Respiratory Panel (PCR) - Final 08/04/21 18:25 Urine, Clean Catch Legionella Antigen - Final 08/04/21 18:25 Urine, Clean Catch Streptococcus pneumoniae Antigen (M - Final Goal Trough: 15-20 mcg/mL Pharmacy Plan for Drug Dosin08/06/21 Vancomycin trough received 12.4. This is below goal 15-20. Dose increased to Vancomycin 1750 mg IV q 8H. Trough ordered for 08/07/21 at 1730 Pharmacy Service will continue to monitor and adjust dosing as required.
[2021-08-06] MEDS: Insulin Glargine-YFGN 100 UNIT/ML Pen 80 UNIT SC (20:38)
[2021-08-06] MEDS: Loratadine 10 MG Tablet PO (20:39)
[2021-08-06] MEDS: Atorvastatin Calcium 80 MG Tablet PO (20:43)
[2021-08-06 21:07] LABS: M R Staph aureus DNA By PCR Negative (Negative); Probe Check PASS
[2021-08-06 23:35] LABS: Bedside Glucose 338 mg/dL (74-106)
[2021-08-07] VITALS (14 sets, daily range): BP systolic 147–162; BP diastolic 75–89; PULSE 98–116; RESP 18–22; TEMP 36.4–37.6; O2SAT 92–97
[2021-08-07] MEDS: 0.9% Saline Lock 10 ML Syringe IV (03:01)
[2021-08-07] MEDS: Gabapentin 400 MG Capsule PO ×3 (04:59→21:24)
[2021-08-07 06:36] LABS: Hematocrit 41.5 % (40-54); Hemoglobin 13.7 g/dL (13.0-16.5); Mean Corpuscular Hgb 28.4 pg (27.0-32.0); Mean Corpuscular Volume 86.1 fL (80-94); Mean Platelet Vol. 10.8 fl (6.2-12.0); POSITIVE COUNT YES; POSITIVE MORPHOLOGY YES; Platelet Count 444 K/mm3 (150-450); RBC Distribution Width CV 13.8 % (11.6-14.6); RBC Distribution Width SD 43.3 fl (35.1-43.9); Red Blood Count 4.82 M/mm3 (4.6-6.2); White Blood Count 18.7 K/mm3 (4.4-11.0)
[2021-08-07 06:46] LABS: Differential Indicated MANUAL DIFF
--- NOTE | 2021-08-07 06:52 | CON.PCM.CC_ITS ---
Assessment & Plan Assessment/Plan (1) Staphylococcal pneumonia: PLAN: RECOMMENDATIONS: 1. Consider obtaining echocardiogram in light of staph bacteremia. 2. Continue antimicrobials, while awaiting finalized sensitivities. 3. Encourage incentive spirometer use and mobilize patient as tolerated. 4. Continue nocturnal Pap therapy per home regimen. 5. Continue as needed bronchodilator therapy. 6. Continue appropriate DVT prophylaxis. IMPRESSIONS: 1. Staphylococcal pneumonia/bacteremia The patient initially presented to the hospital with shortness of breath and productive cough. CTA chest showed no evidence for PE, but did demonstrate a significant right middle lobe consolidation with an associated parapneumonic effusion. There was never any evidence of any end organ dysfunction to suggest that the patient was septic. Subsequent blood and sputum cultures were positive for staph aureus. The patient has been on appropriate antimicrobials. He has not hypoxemic. The patient is maintaining appropriate oxygen saturations on room air. At this time, I do not see any indication for any additional pulmonary work-up including thoracentesis. It may be worthwhile obtaining an echocardiogram, in light of the patient's staph bacteremia. Continue to encourage incentive spirometer use and mobilize patient as tolerated. 2. Morbid obesity/obstructive sleep apnea/diabetes mellitus/hypertension/hyperlipidemia Complicates care, management, recovery and prognosis. Continue home medications along with nocturnal Pap therapy per home regimen. This note was generated with [employer]line [employer] dictation software. It may contain incorrect words, spelling, and punctuation that were not noted in checking the note before signing. HPI Consult Data Date of Consult: 08/07/21 HPI Narrative Reason for Consultation: Parapneumonic effusion HPI Narrative: The patient is a 50-year-old male, with a history as outlined below, who presented to the emergency department on August 04 with progressive dyspnea and productive cough of approximately 1 weeks duration. The patient denied any history of COPD or asthma. He is a non-smoker. He does have a known history of obstructive sleep apnea, for which he currently utilizes nocturnal Pap therapy. On presentation to the emergency department, the patient was noted to be afebrile, but was hypertensive and tachycardic. Initial laboratory evaluation revealed an elevated white blood cell count to 16,000. D-dimer was noted to be 1.72. Chemistry profile was notable for a sodium of 132, chloride of 94 and normal creatinine. Total bili was increased at 1.6. CTA chest showed no evidence for pulmonary embolism. However, there was an airway consolidation in the right middle lobe along with an adjacent pleural effusion. The patient was placed on antimicrobials admitted to the progressive care unit for further management. The patient remained stable from a respiratory perspective. He continues to maintain appropriate oxygen saturations on room air. Both sputum and blood cultures were positive for staph aureus. The patient remains on a combination of Unasyn and vancomycin. [facility] Medical History (Updated 08/07/21 @ 07:[address] Perry Bearden DO) BiPAP (biphasic positive airway pressure) dependence Diabetes mellitus, type 2 Former smoker Former tobacco use GERD (gastroesophageal reflux disease) HLD (hyperlipidemia) HTN (hypertension) Morbid obesity NICHOLE treated with BiPAP Sleep apnea Home Medications insulin glargine [Lantus SoloStar Pen] 55 units SUBCUT BID 08/18/13 [History L ast Taken 03/17/16 18:00] rosuvastatin [Crestor] 10 mg PO QHS 08/18/13 [History Last Taken 03/17/16 18:00] meclizine 25 mg PO 4X/DAY PRN PRN 03/17/16 [History Last Taken Unknown] epinephrine 0.3 mg IM Q15M PRN #2 ea 10/07/20 [Rx Last Taken Unknown] albuterol sulfate 2 puff INHALATION Q6H PRN PRN 08/04/21 [History Last Taken Unknown] azithromycin 250 mg PO DAILY 08/04/21 [History Last Taken Unknown] gabapentin 400 mg PO TID 08/04/21 [History Last Taken Unknown] guaifenesin [Mucus Relief ER] 600 mg PO Q12H PRN PRN 08/04/21 [History Last Taken Unknown] insulin aspart U-100 [Novolog Flexpen U-100 Insulin] 20 - 25 sliding scale dose SUBCUT BID 08/04/21 [History Last Taken Unknown] levocetirizine 5 mg PO QHS 08/04/21 [History Last Taken Unknown] valsartan 160 mg PO DAILY 08/04/21 [History Last Taken Unknown] Allergy/AdvReac Type Severity Reaction Status Date / Time bee venom protein (honey bee) Allergy Swelling Verified 10/07/20 15:46 Penicillins Allergy RASH/LONG Verified 10/07/20 15:46 TIME TO WAKE ME UP Family History (Updated 08/04/21 @ 16:[address] Diana Krause MD) Mother Lung cancer with associated tobacco use history. Father Heart disease CHF (congestive heart failure) Hypertension Surgical History (Updated 08/04/21 @ 16:[address] Diana Krause MD) S/P appendectomy Social History (Updated 08/04/21 @ 16:[address] Diana Krause MD) household members: spouse Smoking Status: Former smoker how long ago did patient quit smoking: Quit 30-33 years prior, started 1.5 ppd at age 9. alcohol intake: never substance use type: does not use ROS Constitutional Constitutional: Denies chills, fatigue or fever(s) Eyes Eyes: Denies blurry vision or change in vision ENT HEENT: Denies dizziness, dysphagia, epistaxis or headache(s) Cardiovascular Cardiovascular: Reports dyspnea Respiratory/Chest Respiratory/Chest: Reports cough, dyspnea and wheezing Gastrointestinal Gastrointestinal: Denies abdominal pain, diarrhea, nausea or vomiting Genitourinary Genitourinary: Denies difficulty urinating Musculoskeletal Musculoskeletal: Denies arthralgias, back pain or joint pain Integumentary Integumentary: Denies lesions, rash or skin ulcer Neurologic Neurologic: Denies abnormal gait or abnormal speech Psychiatric Psychiatric: Denies anxiety or depression Endocrine Endocrinology: Denies fatigue Hematologic/Lymphatic Hematologic/Lymphatic: Denies easy bleeding or easy bruising Physical Exam Const alert, oriented x3 and no apparent distress General Appearance: cooperative Nutritional Appearance: obese HEENT normocephalic, head/scalp atraumatic and moist oral mucous membranes Eyes PERRL, EOMs intact bilaterally and conjunctivae normal Neck supple Neck Narrative: Thick neck with redundant soft tissue. General: trachea midline Chest inspection of chest normal Resp normal respiratory effort and no use of accessory muscles Effort and Inspection: able to speak in complete sentences Auscultation: wheezes and diminished lung sounds Cardio S1 normal heart sound and S2 normal heart sound Rate: tachycardic GI normal to inspection, nondistended, normoactive bowel sounds Extremity no clubbing, cyanosis or edema Skin no rashes or lesions noted General Skin Exam: venous stasis Neuro CN's II-XII intact bilaterally, moves all extremities and no focal motor deficits Psych cooperative and affect normal Lab / Micro Data Result Diagrams: 08/07/21 05:58 08/07/21 05:58 Labs: Laboratory Results - last 24 hr 08/06/21 08:04: POC Glucose 341 H 08/06/21 11:48: POC Glucose 310 H 08/06/21 15:30: Vancomycin Trough 12.4 08/06/21 16:31: POC Glucose 276 H 08/06/21 18:15: MRSA (PCR) Negative 08/06/21 20:31: POC Glucose 338 H 08/07/21 05:58: WBC 18.7 H, RBC 4.82, Hgb 13.7, Hct 41.5, MCV 86.1, MCH 28.4, MCHC 33.0, RDW Std Deviation 43.3, RDW Coeff of Anna 13.8, Plt Count 444, MPV 10.8, Neut % (Auto) Not Reportable Micro: Microbiology 08/04/21 14:50 Blood Culture (Wb) - Right Hand Blood Culture - Preliminary No growth in 48 hours. 08/05/21 08:40 Sputum, Expectorated/Coughed Gram Stain - Final 08/05/21 08:40 Sputum, Expectorated/Coughed Respiratory Culture - Preliminary Staphylococcus aureus 08/04/21 14:45 Blood Culture (Wb) - Anticubital Left Blood Culture - Preliminary Staphylococcus aureus Rhythm Strip Rhythm Strip: Sinus Tach Rate: 109 Ectopy: None Radiology Impression Chest X-Ray 08/06/21 13:21 IMPRESSION: Pulmonary findings appear worse. Electronically Signed: Leo Torres MD at 16:49 EDT Reading Location ID and State: [facility] / [place] , Service support , Charges/Coding Visit Charges Inpatient E&M: 58287 Init Hosp L3
[2021-08-07 06:59] LABS: Anion Gap 7 (5-15); BUN 19 mg/dL (7-18); BUN/Creat Ratio 24.5 RATIO (10-20); Calcium,Total 8.8 mg/dL (8.5-10.1); Chloride 104 mmol/L (98-107); Creatinine, Serum 0.77 mg/dL (0.70-1.30); EST Glomerular Filtration Rate 112 mL/min (>60); Est Glom Filt Rate - Afr Amer 136 mL/min (>60); Estimated Creatinine Clearance 102.42 ml/min; Glucose 241 mg/dL (74-106); Potassium 3.1 mmol/L (3.5-5.1); Sodium Level 138 mmol/L (136-145)
[2021-08-07] MEDS: Ipratropium/Albuterol Sulfate 3 ML AMPUL.NEB INHALATION ×4 (06:59→19:24)
[2021-08-07 07:00] LABS: Lymphocyte 7 % (19-41); Metamyelocyte 5 % (0-1); Monocyte 7 % (0-10); Neutrophil-Band 1 % (0-5); Neutrophil-Segmented 80 % (47-70); Total Cells Counted 100 (MANUAL DIFF)
[2021-08-07 07:01] LABS: Absolute Neutrophil Count 16.1 X10^3/uL (2.0-7.7); Neutrophil # 16.07 X10^3/uL (2.7-7.7)
[2021-08-07 07:02] LABS: Lymphocyte # 1.31 X10^3/ul (0.83-4.51)
[2021-08-07 07:05] LABS: Platelet Estimate SLT INC (ADEQ); Red Cell Morphology NORM C+C NORMAL (NORM C&C)
--- NOTE | 2021-08-07 08:12 | ECHOCS_ITS ---
Reason For Study: Staph Bacteremia Procedure This was a 2D Doppler, Color Flow transthoracic echocardiogram. The study was technically difficult. Contrast injection was performed. Exam performed portable in patient room. Left Ventricle The estimated ejection fraction is 55 %. No evidence for diastolic dysfunction. No regional wall motion abnormalities noted. Right Ventricle Normal RV size. Normal systolic function. Atria Normal left atrium. Normal right atrium. No doppler evidence for ASD. Mitral Valve There is no mitral valve stenosis. No mitral valve insufficiency. Tricuspid Valve There is no tricuspid stenosis. Unable to estimate RV systolic pressure due to inadequate jet, pulmonary artery pressure probably normal. Aortic Valve Trisinus/trileaflet aortic valve. There is no aortic stenosis. No aortic valve insufficiency. Pulmonic Valve There is no pulmonic valvular stenosis. No pulmonic valve insufficiency. Great Vessels Normal aortic root. Medication Diluted definity 3ml given slow IV push to enhance endocardial definition. MMode/2D Measurements & Calculations LVIDd: 4.9 cm IVSd: 1.2 cm LA dimension: 3.5 cm LVIDs: 3.4 cm LVPWd: 1.4 cm FS: 30.7 % Doppler Measurements & Calculations Lat Peak E' Jl: 13.6 cm/sec Med Peak E' Jl: 7.9 cm/sec Ao V2 max: 126.6 cm/sec Ao max P.4 mmHg LV V1 max: 96.0 cm/sec PA V2 max: 107.9 cm/sec LV V1 max P.7 mmHg ECHO/Echo Complete W/ Contrast Interpretation Summary The estimated ejection fraction is 55 %. No evidence for diastolic dysfunction. Ordering Physician: Jimmy Mendez Performed By: Sam Albright RCS
--- NOTE | 2021-08-07 08:13 | PN.HOSP_ITS ---
Subjective Subjective Follow-up for complicated pneumonia Objective Data Objective Data Vital Signs: Vital Signs Temp Pulse Resp BP Pulse Ox 97.5 F L 109 H 22 H 147/77 H 97 08/07/21 06:46 08/07/21 06:59 08/07/21 06:46 08/07/21 06:46 08/07/21 06:46 Oxygen Delivery Method Room Air Weight: 367 lb 8.169 oz Body Mass Index (BMI) 57.9 Intake & Output: Intake and Output for Last 24 Hours 08/05/21 08/06/21 08/07/21 23:59 23:59 23:59 Intake Total 2974 / 3224 5103 / 5803 2108 Balance 2974 / 3224 5103 / 5803 2108 Lab / Micro Data Result Diagrams: 08/07/21 05:58 08/07/21 05:58 Labs: Laboratory Results - last 24 hr 08/06/21 08:04: POC Glucose 341 H 08/06/21 11:48: POC Glucose 310 H 08/06/21 15:30: Vancomycin Trough 12.4 08/06/21 16:31: POC Glucose 276 H 08/06/21 18:15: MRSA (PCR) Negative 08/06/21 20:31: POC Glucose 338 H 08/07/21 05:58: WBC 18.7 H, RBC 4.82, Hgb 13.7, Hct 41.5, MCV 86.1, MCH 28.4, MCHC 33.0, RDW Std Deviation 43.3, RDW Coeff of Anna 13.8, Plt Count 444, MPV 10.8, Neut % (Auto) Not Reportable, Absolute Neuts (auto) 16.1 H, Total Counted 100, Neutrophils % (Manual) 80 H, Band Neutrophils % 1, Lymphocytes % (Manual) 7 L, Monocytes % (Manual) 7, Metamyelocytes % 5 H, Diff Path Review Freya lara Platelet Estimate SLT INC, RBC Morphology NORM C+C 08/07/21 05:58: Sodium 138, Potassium 3.1 L, Chloride 104, Carbon Dioxide 27.0, Anion Gap 7, BUN 19 H, Creatinine 0.77, Estim Creat Clear Calc 102.42, Est GFR (MDRD) Af Amer 136, Est GFR (MDRD) Non-Af 112, BUN/Creatinine Ratio 24.5 H, Glucose 241 H, Calcium 8.8 Micro: Microbiology 08/05/21 08:40 Sputum, Expectorated/Coughed Gram Stain - Final 08/05/21 08:40 Sputum, Expectorated/Coughed Respiratory Culture - Preliminary Meth. resistant Staph. aureus 08/04/21 14:45 Blood Culture (Wb) - Anticubital Left Blood Culture - Preliminary Meth. resistant Staph. aureus 08/04/21 14:50 Blood Culture (Wb) - Right Hand Blood Culture - Preliminary No growth in 48 hours. 08/04/21 17:45 Mucosa - Nasopharyngeal Respiratory Panel (PCR) - Final 08/04/21 18:25 Urine, Clean Catch Legionella Antigen - Final 08/04/21 18:25 Urine, Clean Catch Streptococcus pneumoniae Antigen (M - Final Radiography Diagnostic Testing: Radiology Impression Chest X-Ray 08/06/21 13:21 IMPRESSION: Pulmonary findings appear worse. Electronically Signed: Leo Torres MD at 16:49 EDT Reading Location ID and State: [facility] / [place] , Service support , Rhythm Strip Rhythm Strip: Sinus Tach Rate: 109 Ectopy: None Physical Exam Narrative Patient is still tachycardic. Tachypnea has gotten better. Not hypoxic. No fever. Physical exam General: Alert, Oriented x3, Cooperative, morbid obesity BMI 57.8 kg per square HEENT: Atraumatic, PERRLA, EOMI, Normocephalic Oral: No Gingival or Mucosal Lesions/ Ulcerations Neck: Supple, No JVD, Negative Carotid Bruits Lungs: Air entry diminished on posterior lateral of right chest. Uses BiPAP at night. No crepitation or wheezing. Wheezing improved Cardiovascular: Sinus tachycardic, Normal S1, Normal S2, No murmurs Abdomen: Bowel Sounds Present, Soft, Non Tender, Non-Distended : No renal angle tenderness. No suprapubic tenderness. Extremities: No edema, Capillary Refill Less than 3 Seconds Skin: No rashes, No breakdown Musculoskeletal: No Tenderness to Palpation of Joints or Extremities Neurological: Cranial nerves II-XII grossly intact, DTR 2+/4 and Symmetrical, Neuro grossly intact Psych/Mental Status: Normal Affect, Appropriate. Eyes no scleral icterus Neck General: trachea midline Resp normal air movement Effort and Inspection: able to speak in complete sentences, symmetric chest movement and tachypneic Auscultation: diminished lung sounds Cardio peripheral pulses 2+ throughout Rate: tachycardic Assessment & Plan Assessment/Plan (1) Pneumonia: QUALIFIERS: Laterality: right Lung location: unspecified part of lung Pneumonia type: due to unspecified organism Qualified Code(s): J18.9 - Pneumonia, unspecified organism PLAN: This patient was seen in conjunction with PRISCILLA Kirby. I have independently interviewed and examined the patient and reviewed pertinent history, examination findings, laboratory and plan of management. I have reviewed the note and agree with the documented findings with the few additional points. In brief, patient is 49-year-old morbidly obese gentleman with history of obesity hypoventilation syndrome/NICHOLE on BiPAP admitted with 1 week history of productive cough with yellow sputum, shortness of breath on exertion and right pleuritic chest consistent with 1. Complicated right sided multifocal pneumonia with parapneumonic effusion and atelectasis. Chest CT individually reviewed. It shows heterogeneous consolidation of posterior right middle lobe, atelectasis infiltrate in right lung base along with loculated effusion. Mild left lung base atelectasis. Urinary antigens are negative. Respiratory panel negative. Preliminary anaerobic culture bottle shows gram-positive cocci. Gram stain shows GPC in clusters, 3+ staph. 08/06: Patient was started on IV vancomycin started empirically on IV vancomycin. Discussed with the business practices officer and requested pulmonary consult for complicated multifocal right-sided parapneumonic pneumonia. Encourage incentive spirometry and Pep. Patient is afebrile, tachycardic and tachypneic and wheezing but not hypoxic. Leukocytosis probably due to IV Solu-Medrol transitioned to prednisone. 08/07: No organomegaly suspected dysfunction to suspect or suggest sepsis. Sepsis ruled out. Sputum culture and blood culture anaerobic bottle shows MRSA. 08/08: Blood culture and sputum culture shows MRSA. Pulmonary consult reviewed and appreciated. 2D echo ordered and done, pending report. Discussed with ID and we agree with the plan. ID consult ordered. Blood culture repeat ordered. IV Unasyn discontinued 2. Hypertension: Blood pressure is elevated. Losartan increased 100 mg daily. Antihypertensive medication optimized. Blood pressure is still elevated. We will add HCTZ 12.5 mg daily. 3. DKA with diabetes mellitus type 2 with hyperglycemia: Patient was in DKA with elevated anion gap 16, 22. Anion gap closed x2. Bicarb was 14, increased to 20. Serum acetone level was low positive. DKA resolved. Patient was elana quately resuscitated Glucose is from 300 to 350 mg/dL range partly from IV Solu-Medrol which is meléndez sition to prednisone admission of 08/07: Humalog increased to 25 units 3 times daily AC. Continue Lantus insulin 80 units subcu at bedtime daily. 4. Obesity hypoventilation syndrome: Patient did not had PFT Continue BiPAP at night. Patient on levocetirizine. Mucinex D, incentive spirometry and Pep, bronchopulmonary hygiene. 5. Dyslipidemia on a statin VT prophylaxis, high risk: Enoxaparin 40 mg SQ twice daily I have discussed my assessment with PRISCILLA Kirby and orders have been reviewed. Total time of the visit including total time spent in counseling or coordination of care, (more than 50% of the total time, spent in obtaining medical information from nurses and other ancillary care providers,explaining to the patient about labs, imaging, diagnosis and management), review of CT scan, meds reconciliation, review of labs is 40 minutes. I spent 25 minutes, and PRISCILLA Schmid spent 15 minutes Charges/Coding Visit Charges Inpatient E&M: 22745 Subs Hosp L2
[2021-08-07] MEDS: Insulin Lispro 100 UNIT/ML INSULN.PEN 20 UNIT SC ×2 (08:15→12:10)
[2021-08-07] MEDS: Insulin Lispro 100 UNIT/ML INSULN.PEN SC ×4 (08:16→21:30)
[2021-08-07] MEDS: Enoxaparin 40 MG/0.4 ML Syringe SC ×2 (08:18→21:24)
[2021-08-07] MEDS: Famotidine 20 MG Tablet PO ×2 (08:18→21:25)
[2021-08-07] MEDS: predniSONE 20 MG Tablet 40 MG PO (08:18)
[2021-08-07] MEDS: guaiFENesin/D-Methorphan TAB.SR.12H 1 TABLET PO ×2 (08:18→21:24)
[2021-08-07] MEDS: Losartan Potassium 100 MG Tablet PO (08:18)
[2021-08-07] MEDS: amLODIPine 5 MG Tablet PO (08:18)
[2021-08-07 08:41] LABS: Bedside Glucose 249 mg/dL (74-106)
[2021-08-07 08:52] LABS: Magnesium 2.1 mg/dL (1.6-2.6)
[2021-08-07] MEDS: Potassium Chloride Oral Tablet 20 MEQ 40 MEQ PO ×2 (10:44→14:01)
[2021-08-07 12:35] LABS: Bedside Glucose 268 mg/dL (74-106)
[2021-08-07 15:05] LABS: Absolute Lymphocyte Count 1.31 X10^3/uL (0.83-4.51)
[2021-08-07] MEDS: Insulin Lispro 100 UNIT/ML INSULN.PEN 25 UNIT SC (17:25)
[2021-08-07] MEDS: hydroCHLOROthiazide 12.5mg 12.5 MG PO (17:27)
[2021-08-07 17:51] LABS: Bedside Glucose 332 mg/dL (74-106)
[2021-08-07 18:03] LABS: Vancomycin, Trough Level 15.2 ug/mL (5.0-15.0)
--- NOTE | 2021-08-07 18:42 | PCM.RX.CS ---
Consult Pharmacy has been consulted to manage selected antiobiotic: Vancomycin Type of Consult: Follow-up Prior Doses of Antibiotics Received/Current Regimen: current dose is 1750mg IV q8h Labs: Sodium 138 mmol/L (136-145) 08/07/21 05:58 Potassium 3.1 mmol/L (3.5-5.1) L 08/07/21 05:58 Chloride 104 mmol/L (98-107) 08/07/21 05:58 Carbon Dioxide 27.0 mmol/L (21.0-32.0) 08/07/21 05:58 Anion Gap 7 (5-15) 08/07/21 05:58 BUN 19 mg/dL (7-18) H 08/07/21 05:58 Creatinine 0.77 mg/dL (0.70-1.30) 08/07/21 05:58 Est GFR (MDRD) Af Amer 136 mL/min (>60) 08/07/21 05:58 Est GFR (MDRD) Non-Af 112 mL/min (>60) 08/07/21 05:58 BUN/Creatinine Ratio 24.5 RATIO (10-20) H 08/07/21 05:58 Glucose 241 mg/dL (74-106) H 08/07/21 05:58 Vancomycin Trough 15.2 ug/mL (5.0-15.0) H 08/07/21 17:26 Microbiology: Microbiology 08/05/21 08:40 Sputum, Expectorated/Coughed Gram Stain - Final 08/05/21 08:40 Sputum, Expectorated/Coughed Respiratory Culture - Preliminary Meth. resistant Staph. aureus 08/04/21 14:45 Blood Culture (Wb) - Anticubital Left Blood Culture - Preliminary Meth. resistant Staph. aureus 08/04/21 14:50 Blood Culture (Wb) - Right Hand Blood Culture - Preliminary No growth in 48 hours. 08/04/21 17:45 Mucosa - Nasopharyngeal Respiratory Panel (PCR) - Final 08/04/21 18:25 Urine, Clean Catch Legionella Antigen - Final 08/04/21 18:25 Urine, Clean Catch Streptococcus pneumoniae Antigen (M - Final Weight used for dosin.7 kg Estimated Creatinine Clearance: >100ml/min Goal Trough: 15-20 mcg/mL Pharmacy Plan for Drug Dosing: The vanc trough drawn at 17:26 today (approx 6.75 hrs after the previous dose) was 15.2. While this was drawn a little early due to the previous dose being given a little off schedule, it still would have been close to the 15-20 goal range. Will keep patient on same dose and frequency for now and repeat another trough in 2 days per protocol. Pharmacy Service will continue to monitor and adjust dosing as required. Follow-Up Labs: Trough Vancomycin Labs to be done on [date and time ordered]: 08/09/21 09:30
[2021-08-07] MEDS: Atorvastatin Calcium 80 MG Tablet PO (21:24)
[2021-08-07] MEDS: Loratadine 10 MG Tablet PO (21:25)
[2021-08-07] MEDS: Insulin Glargine-YFGN 100 UNIT/ML Pen 80 UNIT SC (21:31)
[2021-08-07 21:40] LABS: Bedside Glucose 308 mg/dL (74-106)
--- NOTE | 2021-08-07 23:35 | CPS ---
Pt on sleep lab machine, autopap [id number] with undernose nasal mask.
[2021-08-08] VITALS (16 sets, daily range): BP systolic 134–167; BP diastolic 69–92; PULSE 98–129; RESP 16–24; TEMP 37.2–37.9; O2SAT 88–96
[2021-08-08] MEDS: 0.9% Saline Lock 10 ML Syringe IV ×2 (01:58→21:48)
[2021-08-08] MEDS: Gabapentin 400 MG Capsule PO ×3 (06:07→22:07)
--- NOTE | 2021-08-08 06:49 | PCM.PN.INT ---
Assessment & Plan Assessment/Plan (1) Staphylococcal pneumonia: PLAN: RECOMMENDATIONS: 1. Continue vancomycin as ordered. 2. ID consultation pending. 3. Encourage incentive spirometer use and mobilize patient as tolerated. 4. Continue nocturnal Pap therapy per home regimen. 5. Continue as needed bronchodilator therapy. 6. Continue appropriate DVT prophylaxis. IMPRESSIONS: 1. Staphylococcal pneumonia/bacteremia The patient initially presented to the hospital with shortness of breath and productive cough. CTA chest showed no evidence for PE, but did demonstrate a significant right middle lobe consolidation with an associated parapneumonic effusion. There was never any evidence of any end organ dysfunction to suggest that the patient was septic. Subsequent blood and sputum cultures were positive for MRSA. Surface echocardiogram was unremarkable. The patient has been on appropriate antimicrobials. He has not hypoxemic. At this time, I do not see any indication for any additional pulmonary work-up including thoracentesis. Continue to encourage incentive spirometer use and mobilize patient as tolerated. Await input from infectious diseases regarding duration of antimicrobial therapy. 2. Morbid obesity/obstructive sleep apnea/diabetes mellitus/hypertension/hyperlipidemia Complicates care, management, recovery and prognosis. Continue home medications along with nocturnal Pap therapy per home regimen. This note was generated with [employer] dictation software. It may contain incorrect words, spelling, and punctuation that were not noted in checking the note before signing. Subjective Subjective The patient was seen and examined at the bedside this morning. Events from the last 24 hours have been reviewed. The patient is currently afebrile, hemodynamically stable and maintaining appropriate oxygen saturations on room air. He remains compliant with the use of nocturnal Pap therapy. Sputum culture finally speciated MRSA. Echocardiogram completed yesterday was unremarkable. Objective Data Objective Data The patient's most recent lab work, culture data and imaging studies have all been personally reviewed. Surface echocardiogram demonstrated normal LV size and function with an ejection fraction of 55%. There was no evidence of any valvular vegetations. Both blood and sputum culture were positive for MRSA. Vital Signs: Vital Signs Temp Pulse Resp BP Pulse Ox 99.1 F 100 16 147/76 H 94 08/08/21 04:30 08/08/21 04:30 08/08/21 04:30 08/08/21 04:30 08/08/21 04:30 Oxygen Flow Rate (L/min) 2 Oxygen Delivery Method Bi-pap Weight: 167.8 kg Body Mass Index (BMI) 57.9 Intake & Output: Intake and Output for Last 24 Hours 08/06/21 08/07/21 08/08/21 23:59 23:59 23:59 Intake Total 5103 / 5803 3419 / 3419 775 / 775 Balance 5103 / 5803 3419 / 3419 775 / 775 Lab / Micro Data Attestation: I reviewed the patient's lab results. Result Diagrams: 08/07/21 05:58 08/07/21 05:58 Labs: Laboratory Results - last 24 hr 08/07/21 05:58: Absolute Neuts (auto) 16.1 H, Absolute Lymphs (auto) 1.31, Total Counted 100, Neutrophils % (Manual) 80 H, Band Neutrophils % 1, Lymphocytes % (Manual) 7 L, Monocytes % (Manual) 7, Metamyelocytes % 5 H, Diff Path Review July, Platelet Estimate SLT INC, RBC Morphology NORM C+C 08/07/21 05:58: Sodium 138, Potassium 3.1 L, Chloride 104, Carbon Dioxide 27.0, Anion Gap 7, BUN 19 H, Creatinine 0.77, Estim Creat Clear Calc 102.42, Est GFR (MDRD) Af Amer 136, Est GFR (MDRD) Non-Af 112, BUN/Creatinine Ratio 24.5 H, Glucose 241 H, Calcium 8.8 08/07/21 05:58: Magnesium 2.1 08/07/21 08:11: POC Glucose 249 H 08/07/21 12:09: POC Glucose 268 H 08/07/21 17:24: POC Glucose 332 H 08/07/21 17:26: Vancomycin Trough 15.2 H 08/07/21 21:29: POC Glucose 308 H Micro: Microbiology 08/05/21 08:40 Sputum, Expectorated/Coughed Gram Stain - Final 08/05/21 08:40 Sputum, Expectorated/Coughed Respiratory Culture - Preliminary Meth. resistant Staph. aureus 08/04/21 14:45 Blood Culture (Wb) - Anticubital Left Blood Culture - Preliminary Meth. resistant Staph. aureus 08/04/21 14:50 Blood Culture (Wb) - Right Hand Blood Culture - Preliminary No growth in 48 hours. 08/04/21 17:45 Mucosa - Nasopharyngeal Respiratory Panel (PCR) - Final 08/04/21 18:25 Urine, Clean Catch Legionella Antigen - Final 08/04/21 18:25 Urine, Clean Catch Streptococcus pneumoniae Antigen (M - Final Radiography Diagnostic Testing: Radiology Impression Echocardiogram 08/07/21 08:12 Interpretation Summary The estimated ejection fraction is 55 %. No evidence for diastolic dysfunction. Ordering Physician: Jimmy Mendez Performed By: Sam Albright RCS Rhythm Strip Rhythm Strip: Sinus Tach Rate: 109 Ectopy: None Physical Exam Const alert, oriented x3 and no apparent distress General Appearance: cooperative Nutritional Appearance: obese HEENT normocephalic, head/scalp atraumatic and moist oral mucous membranes Eyes PERRL, EOMs intact bilaterally and conjunctivae normal Neck supple Neck Narrative: Thick neck with redundant soft tissue. General: trachea midline Chest inspection of chest normal Resp normal respiratory effort and no use of accessory muscles Effort and Inspection: able to speak in complete sentences Auscultation: wheezes and diminished lung sounds Cardio S1 normal heart sound and S2 normal heart sound Rate: tachycardic GI normal to inspection, nondistended, normoactive bowel sounds Extremity no clubbing, cyanosis or edema Skin no rashes or lesions noted General Skin Exam: venous stasis Neuro CN's II-XII intact bilaterally, moves all extremities and no focal motor deficits Psych cooperative and affect normal Charges/Coding Visit Charges Inpatient E&M: 64779 Subs Hosp L2
[2021-08-08] MEDS: Ipratropium/Albuterol Sulfate 3 ML AMPUL.NEB INHALATION ×3 (06:50→19:13)
[2021-08-08] MEDS: Acetaminophen 325 MG Tablet 650 MG PO ×2 (08:04→17:05)
[2021-08-08] MEDS: Enoxaparin 40 MG/0.4 ML Syringe SC ×2 (08:04→21:49)
[2021-08-08] MEDS: Insulin Lispro 100 UNIT/ML INSULN.PEN 25 UNIT SC (08:05)
[2021-08-08] MEDS: Insulin Lispro 100 UNIT/ML INSULN.PEN SC ×4 (08:05→21:58)
[2021-08-08] MEDS: Famotidine 20 MG Tablet PO ×2 (08:06→21:50)
[2021-08-08] MEDS: hydroCHLOROthiazide 12.5mg 12.5 MG PO (08:06)
[2021-08-08] MEDS: amLODIPine 5 MG Tablet PO (08:06)
[2021-08-08] MEDS: guaiFENesin/D-Methorphan TAB.SR.12H 1 TABLET PO (08:06)
[2021-08-08] MEDS: Losartan Potassium 100 MG Tablet PO (08:06)
[2021-08-08 08:11] LABS: Bedside Glucose 226 mg/dL (74-106)
--- NOTE | 2021-08-08 08:34 | PCM.PN.HOSP ---
Subjective Subjective Follow-up for MRSA pneumonia and bacteremia. Objective Data Objective Data Vital Signs: Vital Signs Temp Pulse Resp BP Pulse Ox 98.9 F 109 H 16 148/79 H 93 08/08/21 08:05 08/08/21 08:05 08/08/21 08:05 08/08/21 08:05 08/08/21 08:05 Oxygen Flow Rate (L/min) 2 Oxygen Delivery Method Room Air Weight: 369 lb 14.97 oz Body Mass Index (BMI) 57.9 Intake & Output: Intake and Output for Last 24 Hours 08/06/21 08/07/21 08/08/21 23:59 23:59 23:59 Intake Total 5103 / 5803 3419 / 3419 775 / 775 Balance 5103 / 5803 3419 / 3419 775 / 775 Lab / Micro Data Result Diagrams: 08/08/21 08:25 08/08/21 08:25 Labs: Laboratory Results - last 24 hr 08/07/21 05:58: Absolute Lymphs (auto) 1.31 08/07/21 05:58: Magnesium 2.1 08/07/21 08:11: POC Glucose 249 H 08/07/21 12:09: POC Glucose 268 H 08/07/21 17:24: POC Glucose 332 H 08/07/21 17:26: Vancomycin Trough 15.2 H 08/07/21 21:29: POC Glucose 308 H 08/08/21 08:02: POC Glucose 226 H Micro: Microbiology 08/05/21 08:40 Sputum, Expectorated/Coughed Gram Stain - Final 08/05/21 08:40 Sputum, Expectorated/Coughed Respiratory Culture - Final Meth. resistant Staph. aureus 08/04/21 14:45 Blood Culture (Wb) - Anticubital Left Blood Culture - Preliminary Meth. resistant Staph. aureus 08/04/21 14:50 Blood Culture (Wb) - Right Hand Blood Culture - Preliminary No growth in 48 hours. 08/04/21 17:45 Mucosa - Nasopharyngeal Respiratory Panel (PCR) - Final 08/04/21 18:25 Urine, Clean Catch Legionella Antigen - Final 08/04/21 18:25 Urine, Clean Catch Streptococcus pneumoniae Antigen (M - Final Radiography Diagnostic Testing: Radiology Impression Echocardiogram 08/07/21 08:12 Interpretation Summary The estimated ejection fraction is 55 %. No evidence for diastolic dysfunction. Ordering Physician: Jimmy Mendez Performed By: Sam Albright RCS Rhythm Strip Rhythm Strip: Sinus Tach Rate: 109 Ectopy: None Physical Exam Narrative Patient is still tachycardic. overall patient feeling better in regards to shortness of breath and dyspnea. Not hypoxic. No fever. Physical exam General: Alert, Oriented x3, Cooperative, morbid obesity BMI 57.8 kg per square HEENT: Atraumatic, PERRLA, EOMI, Normocephalic Oral: No Gingival or Mucosal Lesions/ Ulcerations Neck: Supple, No JVD, Negative Carotid Bruits Lungs: Air entry diminished on posterior lateral of right chest. Uses BiPAP at night. Bilateral expiratory rhonchi. Cardiovascular: Sinus tachycardic, Normal S1, Normal S2, No murmurs Abdomen: Bowel Sounds Present, Soft, Non Tender, Non-Distended : No renal angle tenderness. No suprapubic tenderness. Extremities: No edema, Capillary Refill Less than 3 Seconds Skin: No rashes, No breakdown Musculoskeletal: No Tenderness to Palpation of Joints or Extremities Neurological: Cranial nerves II-XII grossly intact, DTR 2+/4 and Symmetrical, Neuro grossly intact Psych/Mental Status: Normal Affect, Appropriate. Assessment & Plan Assessment/Plan (1) Pneumonia: QUALIFIERS: Laterality: right Lung location: unspecified part of lung Pneumonia type: due to unspecified organism Qualified Code(s): J18.9 - Pneumonia, unspecified organism PLAN: This patient was seen in conjunction with PRISCILLA Kirby. I have independently interviewed and examined the patient and reviewed pertinent history, examination findings, laboratory and plan of management. I have reviewed the note and agree with the documented findings with the few additional points. In brief, patient is 49-year-old morbidly obese gentleman with history of obesity hypoventilation syndrome/NICHOLE on BiPAP admitted with 1 week history of productive cough with yellow sputum, shortness of breath on exertion and right pleuritic chest consistent with 1. Complicated right sided multifocal pneumonia with parapneumonic effusion and atelectasis. Chest CT individually reviewed. It shows heterogeneous consolidation of posterior right middle lobe, atelectasis infiltrate in right lung base along with loculated effusion. Mild left lung base atelectasis. Urinary antigens are negative. Respiratory panel negative. Preliminary anaerobic culture bottle shows gram-positive cocci. Gram stain shows GPC in clusters, 3+ staph. 08/06: Patient was started on IV vancomycin started empirically on IV vancomycin. Discussed with the supply chain planner and requested pulmonary consult for complicated multifocal right-sided parapneumonic pneumonia. Encourage incentive spirometry and Pep. Patient is afebrile, tachycardic and tachypneic and wheezing but not hypoxic. Leukocytosis probably due to IV Solu-Medrol transitioned to prednisone. 08/07: No organomegaly suspected dysfunction to suspect or suggest sepsis. Sepsis ruled out. Sputum culture and blood culture anaerobic bottle shows MRSA. 08/08: Blood culture and sputum culture shows MRSA. Pulmonary consult reviewed and appreciated. 2D echo ordered and done, pending report. Discussed with ID and we agree with the plan. ID consult ordered. Blood culture repeat ordered. IV Unasyn discontinued 08/08: No fever in last 48 hours. Pulmonary follow-up reviewed. I talked to the ID on 08/05. 2D echo no vegetation discussed with the drying room attendant. EF 55%. RV normal size and systolic function could not estimate RVSP, no tricuspid stenosis. Repeat blood culture pending 2. Hypertension: Blood pressure is elevated. Losartan increased 100 mg daily. Antihypertensive medication optimized. Blood pressure is still elevated. We will add HCTZ 12.5 mg daily. Leukocytosis improving 3. DKA with diabetes mellitus type 2 with hyperglycemia: Patient was in DKA with elevated anion gap 16, 22. Anion gap closed x2. Bicarb was 14, increased to 20. Serum acetone level was low positive. DKA resolved. Patient was adequately resuscitated Glucose is from 300 to 350 mg/dL range partly from IV Solu-Medrol which is transition to prednisone admission of 08/07: Humalog increased to 25 units 3 times daily AC. Continue Lantus insulin 80 units subcu at bedtime daily. 08/08: Humalog and Lantus insulin dose increased. Accu-Cheks are high 4. Obesity hypoventilation syndrome: Patient did not had PFT Continue BiPAP at night. Patient on levocetirizine. Mucinex D, incentive spirometry and Pep, bronchopulmonary hygiene. 5. Dyslipidemia on a statin VT prophylaxis, high risk: Enoxaparin 40 mg SQ twice daily I have discussed my assessment with PRISCILLA Kirby and orders have been reviewed. Total time of the visit including total time spent in counseling or coordination of care, (more than 50% of the total time, spent in obtaining medical information from nurses and other ancillary care providers,explaining to the patient about labs, imaging, diagnosis and management), review of CT scan, meds reconciliation, review of labs is 40 minutes. I spent 25 minutes, and PRISCILLA Schmid spent 15 minutes Charges/Coding Visit Charges Inpatient E&M: 76395 Subs Hosp L2
[2021-08-08 08:45] LABS: Hemoglobin 14.1 g/dL (13.0-16.5); Mean Corp Hgb Conc 32.8 g/dL (32-36); Mean Corpuscular Volume 85.3 fL (80-94); Mean Platelet Vol. 10.6 fl (6.2-12.0); POSITIVE COUNT YES; POSITIVE MORPHOLOGY YES; Platelet Count 466 K/mm3 (150-450); RBC Distribution Width CV 13.8 % (11.6-14.6); RBC Distribution Width SD 42.9 fl (35.1-43.9); Red Blood Count 5.04 M/mm3 (4.6-6.2); White Blood Count 20.4 K/mm3 (4.4-11.0)
[2021-08-08 08:47] LABS: Differential Indicated MANUAL DIFF
[2021-08-08 08:56] LABS: Anion Gap 7 (5-15); BUN 12 mg/dL (7-18); BUN/Creat Ratio 17.4 RATIO (10-20); Calcium,Total 8.7 mg/dL (8.5-10.1); Chloride 99 mmol/L (98-107); Creatinine, Serum 0.69 mg/dL (0.70-1.30); EST Glomerular Filtration Rate 129 mL/min (>60); Est Glom Filt Rate - Afr Amer 155 mL/min (>60); Glucose 218 mg/dL (74-106); Potassium 3.5 mmol/L (3.5-5.1); Sodium Level 135 mmol/L (136-145)
[2021-08-08] MEDS: Insulin Lispro 100 UNIT/ML INSULN.PEN 30 UNIT SC ×2 (11:45→17:06)
[2021-08-08 12:04] LABS: Absolute Lymphocyte Count 1.22 X10^3/uL (0.83-4.51); Absolute Neutrophil Count 16.7 X10^3/uL (2.0-7.7); Eosinophil 1 % (0-5); Lymphocyte 6 % (19-41); Metamyelocyte 2 % (0-1); Monocyte 5 % (0-10); Myelocyte 6 % (0-0); Neutrophil-Band 2 % (0-5); Neutrophil-Segmented 80 % (47-70); Platelet Estimate ADEQUATE (ADEQ)
[2021-08-08 12:05] LABS: Red Cell Morphology NORM C+C NORMAL (NORM C&C)
[2021-08-08 12:10] LABS: Bedside Glucose 232 mg/dL (74-106)
[2021-08-08 17:05] LABS: Bedside Glucose 235 mg/dL (74-106)
[2021-08-08] MEDS: Atorvastatin Calcium 80 MG Tablet PO (21:49)
[2021-08-08] MEDS: Loratadine 10 MG Tablet PO (21:49)
[2021-08-08] MEDS: guaiFENesin/D-Methorphan TAB.SR.12H 2 TABLET PO (21:50)
[2021-08-08] MEDS: Insulin Glargine-YFGN 100 UNIT/ML Pen 85 UNIT SC (21:56)
[2021-08-08] MEDS: Benzonatate 100 MG Capsule 200 MG PO (22:07)
[2021-08-08 23:16] LABS: Bedside Glucose 183 mg/dL (74-106)
[2021-08-09] VITALS (20 sets, daily range): BP systolic 124–158; BP diastolic 61–86; PULSE 72–115; RESP 16–28; TEMP 36.9–37.6; O2SAT 88–96
[2021-08-09] MEDS: 0.9% Saline Lock 10 ML Syringe IV ×2 (01:40→05:54)
[2021-08-09] MEDS: Gabapentin 400 MG Capsule PO ×3 (05:53→22:55)
[2021-08-09] MEDS: Benzonatate 100 MG Capsule 200 MG PO ×3 (05:53→21:15)
[2021-08-09] MEDS: Ipratropium/Albuterol Sulfate 3 ML AMPUL.NEB INHALATION ×4 (07:02→19:52)
--- NOTE | 2021-08-09 08:35 | PCM.PN.INT ---
Assessment & Plan Assessment/Plan (1) Staphylococcal pneumonia: PLAN: RECOMMENDATIONS: 1. Continue vancomycin as ordered. 2. Antibiotic plan per infectious disease 3. Encourage incentive spirometer use and mobilize patient as tolerated. 4. Continue nocturnal Pap therapy per home regimen. 5. Continue as needed bronchodilator therapy. 6. Continue appropriate DVT prophylaxis. 7. Obtain walking oximetry. Will sign off if patient is able to ambulate on room air 8. If discharged, patient can follow-up in our office in 2 weeks. Will need repeat imaging to ensure resolution IMPRESSIONS: 1. Staphylococcal pneumonia/bacteremia The patient initially presented to the hospital with shortness of breath and productive cough. CTA chest showed no evidence for PE, but did demonstrate a significant right middle lobe consolidation with an associated parapneumonic effusion. There was never any evidence of any end organ dysfunction to suggest that the patient was septic. Subsequent blood and sputum cultures were positive for MRSA. However, repeat blood cultures show clearance of bacteremia. Surface echocardiogram was unremarkable. The patient has been on appropriate antimicrobials. Await input from infectious diseases regarding duration of antimicrobial therapy. 2. Morbid obesity/obstructive sleep apnea/diabetes mellitus/hypertension/hyperlipidemia Complicates care, management, recovery and prognosis. Continue home medications along with nocturnal Pap therapy per home regimen. This note was generated with [employer] dictation software. It may contain incorrect words, spelling, and punctuation that were not noted in checking the note before signing. Subjective Subjective Patient did well overnight. No acute issues are reported. Patient is reporting lightening in the color of his sputum, but still has a productive cough. Patient does use PAP therapy with sleep. Patient has reported walking to the bathroom without complication. Objective Data Objective Data Vital Signs: Vital Signs Temp Pulse Resp BP Pulse Ox 36.9 C 72 16 138/48 H 96 08/09/21 08:14 08/09/21 08:14 08/09/21 08:14 08/09/21 08:14 08/09/21 08:14 Oxygen Flow Rate (L/min) 2 Oxygen Delivery Method Room Air Weight: 165.6 kg Body Mass Index (BMI) 57.9 Intake & Output: Intake and Output for Last 24 Hours 08/07/21 08/08/21 08/09/21 23:59 23:59 23:59 Intake Total 3419 / 3419 2925 / 3325 1235 / 1235 Output Total 0 / 0 Balance 3419 / 3419 2925 / 3325 1235 / 1235 Lab / Micro Data Result Diagrams: 08/08/21 08:25 08/08/21 08:25 Labs: Laboratory Results - last 24 hr 08/08/21 08:25: WBC 20.4 H, RBC 5.04, Hgb 14.1, Hct 43.0, MCV 85.3, MCH 28.0, MCHC 32.8, RDW Std Deviation 42.9, RDW Coeff of Anna 13.8, Plt Count 466 H, MPV 10.6, Neut % (Auto) Not Reportable, Absolute Neuts (auto) 16.7 H, Absolute Lymphs (auto) 1.22, Neutrophils % (Manual) 80 H, Band Neutrophils % 2, Lymphocytes % (Manual) 6 L, Monocytes % (Manual) 5, Eosinophils % (Manual) 1, Metamyelocytes % 2 H, Myelocytes % 6 H, Diff Path Review July, Platelet Estimate ADEQUATE, RBC Morphology NORM C+C 08/08/21 08:25: Sodium 135 L, Potassium 3.5, Chloride 99, Carbon Dioxide 29.0, Anion Gap 7, BUN 12, Creatinine 0.69 L, Estim Creat Clear Calc 114.30, Est GFR (MDRD) Af Amer 155, Est GFR (MDRD) Non-Af 129, BUN/Creatinine Ratio 17.4, Glucose 218 H, Calcium 8.7 08/08/21 11:43: POC Glucose 232 H 08/08/21 16:51: POC Glucose 235 H 08/08/21 21:55: POC Glucose 183 H Micro: Microbiology 08/07/21 09:25 Blood Culture (Wb) - Anticubital Right Blood Culture - Preliminary No growth in 48 hours. 08/07/21 09:45 Blood Culture (Wb) - Anticubital Right Blood Culture - Preliminary No growth in 48 hours. 08/05/21 08:40 Sputum, Expectorated/Coughed Gram Stain - Final 08/05/21 08:40 Sputum, Expectorated/Coughed Respiratory Culture - Final Meth. resistant Staph. aureus 08/04/21 14:45 Blood Culture (Wb) - Anticubital Left Blood Culture - Preliminary Meth. resistant Staph. aureus 08/04/21 14:50 Blood Culture (Wb) - Right Hand Blood Culture - Preliminary No growth in 48 hours. 08/04/21 17:45 Mucosa - Nasopharyngeal Respiratory Panel (PCR) - Final 08/04/21 18:25 Urine, Clean Catch Legionella Antigen - Final 08/04/21 18:25 Urine, Clean Catch Streptococcus pneumoniae Antigen (M - Final Rhythm Strip Rhythm Strip: Sinus Tach Rate: 109 Ectopy: None Physical Exam Const alert, oriented x3 and no apparent distress Constitutional Narrative: Found sleeping without BiPAP in place. General Appearance: cooperative Nutritional Appearance: obese HEENT normocephalic, head/scalp atraumatic and moist oral mucous membranes Eyes PERRL, EOMs intact bilaterally and conjunctivae normal Neck supple Neck Narrative: Thick neck with redundant soft tissue. General: trachea midline Chest inspection of chest normal Resp normal respiratory effort and no use of accessory muscles Effort and Inspection: able to speak in complete sentences Auscultation: wheezes and diminished lung sounds Cardio S1 normal heart sound and S2 normal heart sound Rate: tachycardic GI normal to inspection, nondistended, normoactive bowel sounds Extremity no clubbing, cyanosis or edema Skin no rashes or lesions noted General Skin Exam: venous stasis Neuro CN's II-XII intact bilaterally, moves all extremities and no focal motor deficits Psych cooperative and affect normal Charges/Coding Visit Charges Inpatient E&M: 02307 Subs Hosp L2
[2021-08-09] MEDS: Insulin Lispro 100 UNIT/ML INSULN.PEN 30 UNIT SC ×3 (09:16→17:17)
[2021-08-09] MEDS: Insulin Lispro 100 UNIT/ML INSULN.PEN SC ×4 (09:17→23:01)
[2021-08-09] MEDS: Losartan Potassium 100 MG Tablet PO (09:19)
[2021-08-09] MEDS: Famotidine 20 MG Tablet PO ×2 (09:19→22:55)
[2021-08-09] MEDS: Enoxaparin 40 MG/0.4 ML Syringe SC ×2 (09:19→22:55)
[2021-08-09] MEDS: hydroCHLOROthiazide 12.5mg 12.5 MG PO (09:20)
[2021-08-09] MEDS: amLODIPine 5 MG Tablet PO (09:20)
[2021-08-09] MEDS: guaiFENesin/D-Methorphan TAB.SR.12H 2 TABLET PO ×2 (09:20→21:15)
[2021-08-09 09:25] LABS: Bedside Glucose 239 mg/dL (74-106)
[2021-08-09 09:51] LABS: Hematocrit 44.8 % (40-54); Mean Corp Hgb Conc 31.3 g/dL (32-36); Mean Corpuscular Hgb 28.5 pg (27.0-32.0); Mean Corpuscular Volume 91.2 fL (80-94); POSITIVE COUNT YES; POSITIVE MORPHOLOGY YES; Platelet Count 347 K/mm3 (150-450); RBC Distribution Width CV 13.8 % (11.6-14.6); RBC Distribution Width SD 46.7 fl (35.1-43.9); Red Blood Count 4.91 M/mm3 (4.6-6.2); White Blood Count 24.3 K/mm3 (4.4-11.0)
[2021-08-09 09:52] LABS: Differential Indicated MANUAL DIFF
[2021-08-09 10:43] LABS: Blast 1 % (0-0); Lymphocyte 4 % (19-41); Metamyelocyte 1 % (0-1); Monocyte 2 % (0-10); Myelocyte 2 % (0-0); Neutrophil-Band 2 % (0-5); Neutrophil-Segmented 87 % (47-70); Platelet Estimate ADEQUATE (ADEQ); Promyelocyte 1 % (0-0); Red Cell Morphology NORM C+C NORMAL (NORM C&C); Total Cells Counted 100 (MANUAL DIFF)
[2021-08-09 10:44] LABS: Absolute Lymphocyte Count 0.97 X10^3/uL (0.83-4.51); Absolute Neutrophil Count 21.6 X10^3/uL (2.0-7.7); Lymphocyte # 0.97 X10^3/ul (0.83-4.51)
[2021-08-09 10:46] LABS: Anion Gap 8 (5-15); BUN 9 mg/dL (7-18); BUN/Creat Ratio 12.1 RATIO (10-20); Calcium,Total 8.9 mg/dL (8.5-10.1); Chloride 99 mmol/L (98-107); Creatinine, Serum 0.74 mg/dL (0.70-1.30); EST Glomerular Filtration Rate 117 mL/min (>60); Est Glom Filt Rate - Afr Amer 142 mL/min (>60); Estimated Creatinine Clearance 106.57 ml/min; Glucose 266 mg/dL (74-106); Sodium Level 134 mmol/L (136-145)
[2021-08-09 10:51] LABS: Vancomycin, Trough Level 12.8 ug/mL (5.0-15.0)
[2021-08-09 11:45] LABS: Bedside Glucose 308 mg/dL (74-106)
--- NOTE | 2021-08-09 11:46 | PCM.RX.CS ---
Consult Pharmacy has been consulted to manage selected antiobiotic: Vancomycin Type of Consult: Follow-up Suspected Infection: Pneumonia Labs: Sodium 134 mmol/L (136-145) L 08/09/21 09:29 Potassium 4.0 mmol/L (3.5-5.1) 08/09/21 09:29 Chloride 99 mmol/L (98-107) 08/09/21 09:29 Carbon Dioxide 27.0 mmol/L (21.0-32.0) 08/09/21 09:29 Anion Gap 8 (5-15) 08/09/21 09:29 BUN 9 mg/dL (7-18) 08/09/21 09:29 Creatinine 0.74 mg/dL (0.70-1.30) 08/09/21 09:29 Est GFR (MDRD) Af Amer 142 mL/min (>60) 08/09/21 09:29 Est GFR (MDRD) Non-Af 117 mL/min (>60) 08/09/21 09:29 BUN/Creatinine Ratio 12.1 RATIO (10-20) 08/09/21 09:29 Glucose 266 mg/dL (74-106) H 08/09/21 09:29 Vancomycin Trough 12.8 ug/mL (5.0-15.0) 08/09/21 09:29 Microbiology: Microbiology 08/07/21 09:25 Blood Culture (Wb) - Anticubital Right Blood Culture - Preliminary No growth in 48 hours. 08/07/21 09:45 Blood Culture (Wb) - Anticubital Right Blood Culture - Preliminary No growth in 48 hours. 08/05/21 08:40 Sputum, Expectorated/Coughed Gram Stain - Final 08/05/21 08:40 Sputum, Expectorated/Coughed Respiratory Culture - Final Meth. resistant Staph. aureus 08/04/21 14:45 Blood Culture (Wb) - Anticubital Left Blood Culture - Preliminary Meth. resistant Staph. aureus 08/04/21 14:50 Blood Culture (Wb) - Right Hand Blood Culture - Preliminary No growth in 48 hours. 08/04/21 17:45 Mucosa - Nasopharyngeal Respiratory Panel (PCR) - Final 08/04/21 18:25 Urine, Clean Catch Legionella Antigen - Final 08/04/21 18:25 Urine, Clean Catch Streptococcus pneumoniae Antigen (M - Final Goal Trough: 15-20 mcg/mL Pharmacy Plan for Drug Dosing: VANCOMYCIN LEVEL RECEIVED Current Vancomycin Dose: 1750mg q8h (02,10,18) Number of Doses Received: Vancomycin Level: 12.8 Hours Since Last Dose: 8 hours Renal Function: 0.74 Renal Function Trend: stable Lab/Micro: Vancomycin Plan/Comments: resulted trough is below the ordered goal trough of 15-20. pt dose is 1750mg q8h. hesitant to increase to a higher dose of 2000mg q8h. recommend continuing current dose and checking trough 08/10/21 Pending Level: 08/10/21 at 1730 Pharmacy Service will continue to monitor and adjust dosing as required. Follow-Up Labs: Trough Vancomycin - 08/10/21 at 1730
--- NOTE | 2021-08-09 12:22 | CASEMGMT ---
Pt does not qualify for home oxygen at discharge. Luis Manuel HIGGINBOTHAM CM
--- NOTE | 2021-08-09 13:32 | PCM.CONS.GEN ---
Assessment & Plan Assessment/Plan (1) MRSA bacteremia: PLAN: MRSA bacteremia due to pneumonia. TTE neg for veg. Bcx 08/07 neg so far. On vanc, feeling better. Might be good candidate for po linezolid at discharge. Will follow, thank you (2) Pneumonia: QUALIFIERS: Pneumonia type: due to unspecified organism Laterality: right Lung location: unspecified part of lung Qualified Code(s): J18.9 - Pneumonia, unspecified organism HPI Consult Data Date of Consult: 08/09/21 HPI Narrative HPI Narrative: FERMÍN MORTON, is a 50 M who presented 08/04 with about one week progressive cough, sputum, dyspnea, not feeling well. No fever or chills, no new joint or back pain. Came to ED, admitted on vanc/unasyn. Bcx and sputum with MRSA, unasyn was stopped. Pt feeling better, still a lot of cough and sputum. Unvaccinated for covid. No n/v/d. Full ROS performed and neg except as noted above. [facility] Medical History BiPAP (biphasic positive airway pressure) dependence Diabetes mellitus, type 2 Former smoker Former tobacco use GERD (gastroesophageal reflux disease) HLD (hyperlipidemia) HTN (hypertension) Morbid obesity NICHOLE treated with BiPAP Sleep apnea Home Medications insulin glargine [Lantus SoloStar Pen] 55 units SUBCUT BID 08/18/13 [History Last Taken 03/17/16 18:00] rosuvastatin [Crestor] 10 mg PO QHS 08/18/13 [History Last Taken 03/17/16 18:00] meclizine 25 mg PO 4X/DAY PRN PRN 03/17/16 [History Last Taken Unknown] epinephrine 0.3 mg IM Q15M PRN #2 ea 10/07/20 [Rx Last Taken Unknown] albuterol sulfate 2 puff INHALATION Q6H PRN PRN 08/04/21 [History Last Taken Unknown] azithromycin 250 mg PO DAILY 08/04/21 [History Last Taken Unknown] gabapentin 400 mg PO TID 08/04/21 [History Last Taken Unknown] guaifenesin [Mucus Relief ER] 600 mg PO Q12H PRN PRN 08/04/21 [History Last Taken Unknown] insulin aspart U-100 [Novolog Flexpen U-100 Insulin] 20 - 25 sliding scale dose SUBCUT BID 08/04/21 [History Last Taken Unknown] levocetirizine 5 mg PO QHS 08/04/21 [History Last Taken Unknown] valsartan 160 mg PO DAILY 08/04/21 [History Last Taken Unknown] Allergy/AdvReac Type Severity Reaction Status Date / Time bee venom protein (honey bee) Allergy Swelling Verified 10/07/20 15:46 Penicillins Allergy RASH/LONG Verified 10/07/20 15:46 TIME TO WAKE ME UP Family History (Updated 08/04/21 @ 16:[address] Diana Krause MD) Mother Lung cancer with associated tobacco use history. Father Heart disease CHF (congestive heart failure) Hypertension Surgical History (Updated 08/04/21 @ 16:[address] Diana Krause MD) S/P appendectomy Social History (Updated 08/04/21 @ 16:[address] Diana Krause MD) household members: spouse Smoking Status: Former smoker how long ago did patient quit smoking: Quit 30-33 years prior, started 1.5 ppd at age 9. alcohol intake: never substance use type: does not use Physical Exam Const alert, oriented x3 and no apparent distress General Appearance: cooperative Exam Limitations: no limitations HEENT normocephalic and head/scalp atraumatic Eyes PERRL and EOMs intact bilaterally Neck supple and No nodes Resp Auscultation: rhonchi Cardio regular rate, regular rhythm and no murmurs GI soft to palpation, non-tender and non-distended Extremity no clubbing, cyanosis or edema Extremity Narrative: no spine tenderness Skin no rashes or lesions noted Skin Narrative: no splinter hemorrhages on fingers Lab / Micro Data Result Diagrams: 08/09/21 09:29 08/09/21 09:29 Labs: Laboratory Results - last 24 hr 08/08/21 16:51: POC Glucose 235 H 08/08/21 21:55: POC Glucose 183 H 08/09/21 09:05: POC Glucose 239 H 08/09/21 09:29: Vancomycin Trough 12.8 08/09/21 09:29: WBC 24.3 H, RBC 4.91, Hgb 14.0, Hct 44.8, MCV 91.2 D, MCH 28.5, MCHC 31.3 L, RDW Std Deviation 46.7 H, RDW Coeff of Anna 13.8, Plt Count 347, MPV 11.0, Neut % (Auto) Not Reportable, Absolute Neuts (auto) 21.6 H, Absolute Lymphs (auto) 0.97, Total Counted 100, Neutrophils % (Manual) 87 H, Band Neutrophils % 2, Lymphocytes % (Manual) 4 L, Monocytes % (Manual) 2, Metamyelocytes % 1, Myelocytes % 2 H, Promyelocytes % 1 H, Blast Cells % 1 H*, Diff Path Review July, Platelet Estimate ADEQUATE, RBC Morphology NORM C+C 08/09/21 09:29: Sodium 134 L, Potassium 4.0, Chloride 99, Carbon Dioxide 27.0, Anion Gap 8, BUN 9, Creatinine 0.74, Estim Creat Clear Calc 106.57, Est GFR (MDRD) Af Amer 142, Est GFR (MDRD) Non-Af 117, BUN/Creatinine Ratio 12.1, Glucose 266 H, Calcium 8.9 08/09/21 11:16: POC Glucose 308 H Micro: Microbiology 08/07/21 09:25 Blood Culture (Wb) - Anticubital Right Blood Culture - Preliminary No growth in 48 hours. 08/07/21 09:45 Blood Culture (Wb) - Anticubital Right Blood Culture - Preliminary No growth in 48 hours. Rhythm Strip Rhythm Strip: Sinus Tach Rate: 109 Ectopy: None
[2021-08-09] MEDS: Acetaminophen 325 MG Tablet 650 MG PO ×2 (13:37→21:10)
--- NOTE | 2021-08-09 14:05 | PN.HOSP_ITS ---
Subjective Subjective Follow-up on MRSA pneumonia/bacteremia: Patient was seen and examined. Denied any fever or chills. He has been pr oducing lots of purulent sputum. He was evaluated for oxygen on ambulation and did not require oxygen. Objective Data Objective Data Vital Signs: Vital Signs Temp Pulse Resp BP Pulse Ox 99.1 F 110 H 18 140/73 H 92 08/09/21 13:28 08/09/21 13:28 08/09/21 13:28 08/09/21 13:28 08/09/21 13:28 Oxygen Flow Rate (L/min) 2 Oxygen Delivery Method Room Air Weight: 165.6 kg Body Mass Index (BMI) 57.9 Intake & Output: Intake and Output for Last 24 Hours 08/07/21 08/08/21 08/09/21 23:59 23:59 23:59 Intake Total 3419 / 3419 2925 / 3325 1235 / 1235 Output Total 0 / 0 Balance 3419 / 3419 2925 / 3325 1235 / 1235 Lab / Micro Data Result Diagrams: 08/09/21 09:29 08/09/21 09:29 Labs: Laboratory Results - last 24 hr 08/08/21 16:51: POC Glucose 235 H 08/08/21 21:55: POC Glucose 183 H 08/09/21 09:05: POC Glucose 239 H 08/09/21 09:29: Vancomycin Trough 12.8 08/09/21 09:29: WBC 24.3 H, RBC 4.91, Hgb 14.0, Hct 44.8, MCV 91.2 D, MCH 28.5, MCHC 31.3 L, RDW Std Deviation 46.7 H, RDW Coeff of Anna 13.8, Plt Count 347, MPV 11.0, Neut % (Auto) Not Reportable, Absolute Neuts (auto) 21.6 H, Absolute Lymphs (auto) 0.97, Total Counted 100, Neutrophils % (Manual) 87 H, Band Neutrophils % 2, Lymphocytes % (Manual) 4 L, Monocytes % (Manual) 2, Metamyelocytes % 1, Myelocytes % 2 H, Promyelocytes % 1 H, Blast Cells % 1 H*, Diff Path Review May , Platelet Estimate ADEQUATE, RBC Morphology NORM C+C 08/09/21 09:29: Sodium 134 L, Potassium 4.0, Chloride 99, Carbon Dioxide 27.0, Anion Gap 8, BUN 9, Creatinine 0.74, Estim Creat Clear Calc 106.57, Est GFR (MDRD) Af Amer 142, Est GFR (MDRD) Non-Af 117, BUN/Creatinine Ratio 12.1, Glucose 266 H, Calcium 8.9 08/09/21 11:16: POC Glucose 308 H Micro: Microbiology 08/07/21 09:25 Blood Culture (Wb) - Anticubital Right Blood Culture - Preliminary No growth in 48 hours. 08/07/21 09:45 Blood Culture (Wb) - Anticubital Right Blood Culture - Preliminary No growth in 48 hours. 08/05/21 08:40 Sputum, Expectorated/Coughed Gram Stain - Final 08/05/21 08:40 Sputum, Expectorated/Coughed Respiratory Culture - Final Meth. resistant Staph. aureus 08/04/21 14:45 Blood Culture (Wb) - Anticubital Left Blood Culture - Preliminary Meth. resistant Staph. aureus 08/04/21 14:50 Blood Culture (Wb) - Right Hand Blood Culture - Preliminary No growth in 48 hours. 08/04/21 17:45 Mucosa - Nasopharyngeal Respiratory Panel (PCR) - Final 08/04/21 18:25 Urine, Clean Catch Legionella Antigen - Final 08/04/21 18:25 Urine, Clean Catch Streptococcus pneumoniae Antigen (M - Final Rhythm Strip Rhythm Strip: Sinus Tach Rate: 109 Ectopy: None Physical Exam Narrative Physical exam: General: Alert, Oriented x3, Cooperative, No apparent distress, morbidly obese HEENT: Atraumatic Oral: Moist Mucosa Neck: Supple Lungs: Diminished to auscultation Cardiovascular: HS I+II, regular, no murmurs Abdomen: Bowel Sounds Present, Soft, Non Tender Extremities: Bilateral pedal edema +1 Skin: No rashes, No breakdown Neurological: Grossly intact Psych/Mental Status: Appropriate Assessment & Plan Assessment/Plan (1) Pneumonia: QUALIFIERS: Pneumonia type: due to unspecified organism Laterality: right Lung location: unspecified part of lung Qualified Code(s): J18.9 - Pneumonia, unspecified organism PLAN: 1.Acute complicated MRSA right sided multifocal pneumonia/parapneumonic effusion/MRSA bacteremia Continue on IV vancomycin, repeat blood cultures are negative x48 hours 2D echo does not show any valvular abnormality Discussed with ID, will keep patient 1 more day and reevaluate in a.m 2. Hypertension, controlled, continue on amlodipine, hydrochlorothiazide, losartan, 3. Type 2 DM, BS are fairly uncontrolled Will increase Lantus to 90 units QHS, ISS 4. Obesity hypoventilation syndrome Continue BiPAP at night 5. Dyslipidemia, continue on statin 6. DVT prophylaxis - Lovenox SC Charges/Coding Visit Charges Inpatient E&M: 24238 Subs Hosp L2
[2021-08-09 15:32] LABS: Pathologist Review Reviewed
[2021-08-09 17:00] LABS: Bedside Glucose 235 mg/dL (74-106)
[2021-08-09] MEDS: Loratadine 10 MG Tablet PO (22:55)
[2021-08-09] MEDS: Atorvastatin Calcium 80 MG Tablet PO (22:55)
--- NOTE | 2021-08-09 23:00 | CPS ---
Pt on sleep lab autopap unit. Cpap with a range from 5-20 cmhoh with 3L bled into unit due to recent hypoxia
[2021-08-09] MEDS: Insulin Glargine-YFGN 100 UNIT/ML Pen 90 UNIT SC (23:04)
[2021-08-09 23:25] LABS: Bedside Glucose 234 mg/dL (74-106)
[2021-08-10] VITALS (11 sets, daily range): BP systolic 135–141; BP diastolic 65–71; PULSE 103–116; RESP 18–22; TEMP 36.9–37.3; O2SAT 87–96
[2021-08-10 06:33] LABS: Hematocrit 39.8 % (40-54); Hemoglobin 12.8 g/dL (13.0-16.5); Mean Corp Hgb Conc 32.2 g/dL (32-36); Mean Corpuscular Hgb 28.2 pg (27.0-32.0); Mean Corpuscular Volume 87.7 fL (80-94); Mean Platelet Vol. 10.4 fl (6.2-12.0); POSITIVE COUNT YES; POSITIVE DIFFERENTIAL YES; POSITIVE MORPHOLOGY YES; Platelet Count 362 K/mm3 (150-450); RBC Distribution Width CV 13.6 % (11.6-14.6); RBC Distribution Width SD 43.7 fl (35.1-43.9); Red Blood Count 4.54 M/mm3 (4.6-6.2); White Blood Count 25.4 K/mm3 (4.4-11.0)
[2021-08-10] MEDS: Gabapentin 400 MG Capsule PO ×2 (06:33→13:50)
[2021-08-10] MEDS: Insulin Lispro 100 UNIT/ML INSULN.PEN SC ×2 (06:33→12:01)
[2021-08-10] MEDS: Benzonatate 100 MG Capsule 200 MG PO ×2 (06:33→13:50)
[2021-08-10 06:35] LABS: Differential Indicated MANUAL DIFF
[2021-08-10] MEDS: Insulin Lispro 100 UNIT/ML INSULN.PEN 30 UNIT SC ×2 (06:38→12:01)
[2021-08-10 06:46] LABS: Bedside Glucose 255 mg/dL (74-106)
[2021-08-10 07:07] LABS: ALB/GLOB Ratio 0.4 RATIO (0.9-2.4); AST(SGOT) 21 U/L (15-37); Alanine Aminotransfer ALT/SGPT 26 U/L (16-61); Albumin, Serum 1.8 g/dL (3.2-5.0); Alkaline Phosphatase 110 U/L (45-117); Anion Gap 4 (5-15); BUN 10 mg/dL (7-18); Calcium,Total 8.8 mg/dL (8.5-10.1); Chloride 95 mmol/L (98-107); Creatinine, Serum 0.72 mg/dL (0.70-1.30); EST Glomerular Filtration Rate 123 mL/min (>60); Est Glom Filt Rate - Afr Amer 148 mL/min (>60); Estimated Creatinine Clearance 109.53 ml/min; Globulin 4.4 g/dL (2.2-4.2); Glucose 259 mg/dL (74-106); Potassium 4.5 mmol/L (3.5-5.1); Protein, Total 6.2 g/dL (6.4-8.2); Sodium Level 134 mmol/L (136-145)
[2021-08-10 07:13] LABS: Lymphocyte 1 % (19-41); Metamyelocyte 3 % (0-1); Monocyte 4 % (0-10); Neutrophil-Band 1 % (0-5); Neutrophil-Segmented 90 % (47-70); Promyelocyte 1 % (0-0); Total Cells Counted 100 (MANUAL DIFF)
[2021-08-10 07:14] LABS: Absolute Lymphocyte Count 0.25 X10^3/uL (0.83-4.51); Absolute Neutrophil Count 24.2 X10^3/uL (2.0-7.7); Lymphocyte # 0.25 X10^3/ul (0.83-4.51); Neutrophil # 24.17 X10^3/uL (2.7-7.7); Platelet Estimate ADEQUATE (ADEQ); Red Cell Morphology NORM C+C NORMAL (NORM C&C)
[2021-08-10] MEDS: Ipratropium/Albuterol Sulfate 3 ML AMPUL.NEB INHALATION ×2 (07:26→10:49)
[2021-08-10] MEDS: Enoxaparin 40 MG/0.4 ML Syringe SC (08:21)
[2021-08-10] MEDS: guaiFENesin/D-Methorphan TAB.SR.12H 2 TABLET PO (08:22)
[2021-08-10] MEDS: Famotidine 20 MG Tablet PO (08:22)
[2021-08-10] MEDS: amLODIPine 5 MG Tablet PO (08:22)
[2021-08-10] MEDS: hydroCHLOROthiazide 12.5mg 12.5 MG PO (08:22)
[2021-08-10] MEDS: Losartan Potassium 100 MG Tablet PO (08:22)
[2021-08-10 09:30] LABS: Pathologist Review Reviewed
[2021-08-10 09:32] LABS: Pathologist Review Reviewed
--- NOTE | 2021-08-10 10:01 | PCM.DC ---
Discharge Instructions Diet Discharge Diet: 1800 Calorie Control Diet and 2000 mg Sodium Diet Activity Discharge Activity: Return to Normal Activity Follow Up Care Test Results: Test results from this visit will be discussed in further detail at your follow-up appointment, if applicable. Discharge Plan Admission Admit Date/Time: 08/04/21 16:00 Primary Reason for Your Visit: Acute MRSA pneumonia Attending Provider: Maria E Crews Primary Care Provider: Pasha Cummins NP Consulting Providers: Diana Krause ; Alexander Arnold ; Perry Bearden ; Amarilys Metcalf NP ; Jaden Tipton ; Jimmy Mendez Instructions Additional Instructions / Restrictions: Complete your antibiotics as prescribed. Continue to use incentive spirometer. Continue to use of BiPAP with oxygen. Discharge Orders/Prescriptions Prescriptions: New linezolid 600 mg tablet 600 mg PO Q12H 12 Days Qty: 24 RF: 0 atorvastatin 80 mg Tablet 80 mg PO QHS 30 Days Qty: 30 RF: 0 insulin glargine-yfgn 100 unit/mL (3 mL) Insulin Pen 90 unit subcut QHS 30 Days Qty: 27 RF: 0 amlodipine 5 mg Tablet 5 mg PO DAILY 30 Days Qty: 30 RF: 0 benzonatate 100 mg Capsule 200 mg PO TID PRN (Reason: cough) 7 Days Qty: 21 RF: 0 hydrochlorothiazide 12.5 mg Capsule 12.5 mg PO DAILY 30 Days Qty: 30 RF: 0 insulin lispro [Humalog KwikPen Insulin] 100 unit/mL Insulin Pen 30 unit subcut TIDAC 30 Days Qty: 27 RF: 0 Continued meclizine 25 MG tablet 25 mg PO 4X/DAY PRN PRN (Reason: Dizziness) RF: 0 epinephrine 0.3 mg/0.3 mL auto-injector 0.3 mg IM Q15M PRN (Reason: anaphylaxis) Qty: 2 RF: 0 gabapentin 400 mg capsule 400 mg PO TID RF: 0 albuterol sulfate 90 mcg/actuation HFA aerosol inhaler 2 puff INHALATION Q6H PRN PRN (Reason: Shortness Of Breath) RF: 0 valsartan 160 mg tablet 160 mg PO DAILY RF: 0 insulin aspart U-100 [Novolog Flexpen U-100 Insulin] 100 unit/mL (3 mL) insulin pen 20 - 25 sliding scale dose SUBCUT BID RF: 0 levocetirizine 5 mg tablet 5 mg PO QHS RF: 0 guaifenesin [Mucus Relief ER] 600 mg tablet extended release 12hr 600 mg PO Q12H PRN PRN (Reason: Cough) RF: 0 Discontinued rosuvastatin [Crestor] 40 MG tablet 10 mg PO QHS RF: 0 insulin glargine [Lantus Solostar U-100 Insulin] 100 UNITS/ML insulin pen 55 units subcut BID RF: 0 azithromycin 250 mg tablet 250 mg PO DAILY RF: 0 Referrals / Follow Up: Pasha Cummins NP, CONSTITUTIONAL LAW PROFESSOR-C [Primary Care Provider] - 08/17/21 1:00 pm Disposition Disposition (needs filled in before D/C Order can be placed): Home, Self Care
--- NOTE | 2021-08-10 10:04 | PCM.DC.SUM ---
Providers Date of Admission: 08/04/21 Date of Discharge: 08/10/21 Primary Care Physician: Pasha Cummins, PRISCILLA-Jasbir Consultations 08/06/21 13:25 Consult: Logistics Project Manager / Pulmonary Medicine Routine Consulting Provider: Pulmonary Medicine mayra Douglas Reason for Consult: Complicated parapneumonic effusion EMERGENT Consult: No Notified: Yes Date Notified: 08/06/21 Time Notified: 13:25 Method of Notification: Verbal 08/07/21 09:01 Consult: Infectious Disease Routine Consulting Provider: Jaden Tipton Reason for Consult: MRSA Bactermia from RIGHT lung MRSA pneumonia EMERGENT Consult: No Notified: Yes Date Notified: 08/07/21 Time Notified: 09:02 Method of Notification: Verbal Reason For Visit: HYPOXIA, R SIDED PNA Diagnosis Discharge Diagnosis (1) Pneumonia: Status: Acute Code(s): J18.9 - Pneumonia, unspecified organism Qualifiers: Laterality: right Lung location: unspecified part of lung Pneumonia type: due to unspecified organism Qualified Code(s): J18.9 - Pneumonia, unspecified organism Medications at Discharge Home Medications meclizine 25 mg PO 4X/DAY PRN PRN 03/17/16 epinephrine 0.3 mg IM Q15M PRN #2 ea 10/07/20 albuterol sulfate 2 puff INHALATION Q6H PRN PRN 08/04/21 gabapentin 400 mg PO TID 08/04/21 guaifenesin [Mucus Relief ER] 600 mg PO Q12H PRN PRN 08/04/21 insulin aspart U-100 [Novolog Flexpen U-100 Insulin] 20 - 25 sliding scale dose SUBCUT BID 08/04/21 levocetirizine 5 mg PO QHS 08/04/21 valsartan 160 mg PO DAILY 08/04/21 amlodipine 5 mg PO DAILY 30 Days #30 tab 08/10/21 atorvastatin 80 mg PO QHS 30 Days #30 tab 08/10/21 benzonatate 200 mg PO TID PRN 7 Days #21 cap 08/10/21 hydrochlorothiazide 12.5 mg PO DAILY 30 Days #30 cap 08/10/21 insulin glargine-yfgn 90 unit SUBCUT QHS 30 Days #27 ml 08/10/21 insulin lispro [Humalog KwikPen Insulin] 30 unit SUBCUT TIDAC 30 Days #27 ml 08/10/21 linezolid 600 mg PO Q12H 12 Days #24 tab 08/10/21 Hospital Course Operations None Procedures 2-D Echocardiogram Summary of Care Provided Minutes Spent on Discharge: 35 Hospital Course: 50 y/o male with past medical history of morbid obesity, hypertension, type II DM who comes in with progressive shortness of breath and cough productive of yellowish sputum as well as wheezes. Patient was seen in the ER, found to be tachycardic, WBC count was 16.2, D-dimer was 1.72. Sodium was 132, chloride 94, glucose 287. Chest x-ray has showed heterogeneous right lower lobe consolidation with blunting right costophrenic angle. CTA of the chest showed consolidation of right middle lobe with atelectasis and or infiltrate in right lower lobe. Patient was initially started on Rocephin and azithromycin. His blood cultures came back positive for MRSA. Sputum cultures also showed MRSA. Patient was switched to IV vancomycin. Infectious disease pulmonology was consulted. Patient was continued on his BiPAP at night. He did qualify and require oxygen on the day of discharge. Patient was discharged on 12 more days of linezolid. He was also discharged on an increased dose of insulin. He would need to follow-up with his primary care doctor within 1 week and also with pulmonology within 2 weeks. Physical Exam Narrative Physical exam: General: Alert, Oriented x3, Cooperative, No apparent distress, morbidly obese HEENT: Atraumatic Oral: Moist Mucosa Neck: Supple Lungs: Diminished to auscultation Cardiovascular: HS I+II, regular, no murmurs Abdomen: Bowel Sounds Present, Soft, Non Tender Extremities: Bilateral pedal edema +1 Skin: No rashes, No breakdown Neurological: Grossly intact Psych/Mental Status: Appropriate Weight / BMI Weight Weight: 171.5 kg Body Mass Index (BMI) 57.9 ABG / Lab / Microbiology Data Result Diagrams: 08/10/21 06:10 08/10/21 06:10 Laboratory: Laboratory Results - last 24 hr 08/06/21 05:45: Diff Path Review Reviewed 08/07/21 05:58: Diff Path Review Reviewed 08/08/21 08:25: Diff Path Review Reviewed 08/09/21 09:29: Vancomycin Trough 12.8 08/09/21 09:29: Absolute Neuts (auto) 21.6 H, Absolute Lymphs (auto) 0.97, Total Counted 100, Neutrophils % (Manual) 87 H, Band Neutrophils % 2, Lymphocytes % (Manual) 4 L, Monocytes % (Manual) 2, Metamyelocytes % 1, Myelocytes % 2 H, Promyelocytes % 1 H, Blast Cells % 1 H*, Diff Path Review July marco, Platelet Estimate ADEQUATE, RBC Morphology NORM C+C 08/09/21 09:29: Sodium 134 L, Potassium 4.0, Chloride 99, Carbon Dioxide 27.0, Anion Gap 8, BUN 9, Creatinine 0.74, Estim Creat Clear Calc 106.57, Est GFR (MDRD) Af Amer 142, Est GFR (MDRD) Non-Af 117, BUN/Creatinine Ratio 12.1, Glucose 266 H, Calcium 8.9 08/09/21 11:16: POC Glucose 308 H 08/09/21 16:44: POC Glucose 235 H 08/09/21 23:00: POC Glucose 234 H 08/10/21 06:10: WBC 25.4 H, RBC 4.54 L, Hgb 12.8 L, Hct 39.8 L, MCV 87.7, MCH 28.2, MCHC 32.2, RDW Std Deviation 43.7, RDW Coeff of Anna 13.6, Plt Count 362, MPV 10.4, Neut % (Auto) Not Reportable, Absolute Neuts (auto) 24.2 H, Absolute Lymphs (auto) 0.25 L, Total Counted 100, Neutrophils % (Manual) 90 H, Band Neutrophils % 1, Lymphocytes % (Manual) 1 L, Monocytes % (Manual) 4, Metamyelocytes % 3 H, Promyelocytes % 1 H, Diff Path Review July marco, Platelet Estimate ADEQUATE, RBC Morphology NORM C+C 08/10/21 06:10: Sodium 134 L, Potassium 4.5, Chloride 95 L, Carbon Dioxide 35.0 H, Anion Gap 4 L, BUN 10, Creatinine 0.72, Estim Creat Clear Calc 109.53, Est GFR (MDRD) Af Amer 148, Est GFR (MDRD) Non-Af 123, BUN/Creatinine Ratio 14.0, Glucose 259 H, Calcium 8.8, Total Bilirubin 0.60, AST 21, ALT 26, Alkaline Phosphatase 110, Total Protein 6.2 L, Albumin 1.8 L, Globulin 4.4 H, Albumin/Globulin Ratio 0.4 L 08/10/21 06:29: POC Glucose 255 H Microbiology: Microbiology 08/04/21 14:45 Blood Culture (Wb) - Anticubital Left Blood Culture - Final Meth. resistant Staph. aureus 08/04/21 14:50 Blood Culture (Wb) - Right Hand Blood Culture - Final No growth in 5 days. 08/07/21 09:25 Blood Culture (Wb) - Anticubital Right Blood Culture - Preliminary No growth in 48 hours. 08/07/21 09:45 Blood Culture (Wb) - Anticubital Right Blood Culture - Preliminary No growth in 48 hours. 08/05/21 08:40 Sputum, Expectorated/Coughed Gram Stain - Final 08/05/21 08:40 Sputum, Expectorated/Coughed Respiratory Culture - Final Meth. resistant Staph. aureus 08/04/21 17:45 Mucosa - Nasopharyngeal Respiratory Panel (PCR) - Final 08/04/21 18:25 Urine, Clean Catch Legionella Antigen - Final 08/04/21 18:25 Urine, Clean Catch Streptococcus pneumoniae Antigen (M - Final D/C Instructions Discharge Diet: 1800 Calorie Control Diet and 2000 mg Sodium Diet Meaningful Use Info Meaningful Use Diagnoses (Choose all that apply): None applicable Discharge Plan Admission Admit Date/Time: 08/04/21 16:00 Primary Reason for Your Visit: Acute MRSA pneumonia Attending Provider: Maria E Crews Primary Care Provider: Pasha Cummins NP Consulting Providers: Diana Krause ; Alexander Arnold ; Perry Bearden ; Amarilys Metcalf LEARNING TECHNOLOGIES SPECIALIST ; Jaden Tipton ; Jimmy Mendez Instructions Additional Instructions / Restrictions: Complete your antibiotics as prescribed. Continue to use incentive spirometer. Continue to use of BiPAP with oxygen. Discharge Orders/Prescriptions Prescriptions: New linezolid 600 mg tablet 600 mg PO Q12H 12 Days Qty: 24 RF: 0 atorvastatin 80 mg Tablet 80 mg PO QHS 30 Days Qty: 30 RF: 0 insulin glargine-yfgn 100 unit/mL (3 mL) Insulin Pen 90 unit subcut QHS 30 Days Qty: 27 RF: 0 amlodipine 5 mg Tablet 5 mg PO DAILY 30 Days Qty: 30 RF: 0 benzonatate 100 mg Capsule 200 mg PO TID PRN (Reason: cough) 7 Days Qty: 21 RF: 0 hydrochlorothiazide 12.5 mg Capsule 12.5 mg PO DAILY 30 Days Qty: 30 RF: 0 insulin lispro [Humalog KwikPen Insulin] 100 unit/mL Insulin Pen 30 unit subcut TIDAC 30 Days Qty: 27 RF: 0 Continued meclizine 25 MG tablet 25 mg PO 4X/DAY PRN PRN (Reason: Dizziness) RF: 0 epinephrine 0.3 mg/0.3 mL auto-injector 0.3 mg IM Q15M PRN (Reason: anaphylaxis) Qty: 2 RF: 0 gabapentin 400 mg capsule 400 mg PO TID RF: 0 albuterol sulfate 90 mcg/actuation HFA aerosol inhaler 2 puff INHALATION Q6H PRN PRN (Reason: Shortness Of Breath) RF: 0 valsartan 160 mg tablet 160 mg PO DAILY RF: 0 insulin aspart U-100 [Novolog Flexpen U-100 Insulin] 100 unit/mL (3 mL) insulin pen 20 - 25 sliding scale dose SUBCUT BID RF: 0 levocetirizine 5 mg tablet 5 mg PO QHS RF: 0 guaifenesin [Mucus Relief ER] 600 mg tablet extended release 12hr 600 mg PO Q12H PRN PRN (Reason: Cough) RF: 0 Discontinued rosuvastatin [Crestor] 40 MG tablet 10 mg PO QHS RF: 0 insulin glargine [Lantus Solostar U-100 Insulin] 100 UNITS/ML insulin pen 55 units subcut BID RF: 0 azithromycin 250 mg tablet 250 mg PO DAILY RF: 0 Referrals / Follow Up: Amarilys Metcalf NP, LEARNING TECHNOLOGIES SPECIALIST-C [Nurse Practitioner] - Within 2 Weeks Pasha Cummins NP, LEARNING TECHNOLOGIES SPECIALIST-C [Primary Care Provider] - 08/17/21 1:00 pm Disposition Disposition (needs filled in before D/C Order can be placed): Home, Self Care Charges/Coding Visit Charges Inpatient E&M: 52298 Disch Hosp
--- NOTE | 2021-08-10 10:28 | CASEMGMT ---
Addendum entered by Doris Larios 08/10/21 10:49: Pt also provided a pulse ox from [facility] to take home with instructions. Luis Manuel HIGGINBOTHAM CM Original Note: Per Hui HIGGINBOTHAM, pt was 87% on room air this morning and will qualify for 2L continuous home oxygen. Pt has bipap thru [facility] and would like script for home oxygen sent thru [facility] as well. Order to be obtained and faxed to [facility]. [facility] also notified that pt will need a tank for discharge. Pt also to be sent home on Linezolid po and med e-scribed to [facility] pharmacy. Call to Carolann in pharmacy and she states co-pay for med is $3.95. Pt updated on all, voices understanding. Pt voices no further questions/concerns/needs. Luis Manuel HIGGINBOTHAM CM
--- NOTE | 2021-08-10 11:04 | PCM.PN.ID ---
Physical Exam Narrative Feeling better, still some cough, no fever, no n/v/d. Const alert and no apparent distress General Appearance: cooperative Resp Auscultation: rhonchi Cardio regular rate and regular rhythm GI soft to palpation, non-tender and non-distended Skin no rashes or lesions noted ID ID: Route of nutrition/ use of supplements: [] Nutritional Intake: [] IV Site: [] Quevedo Catheter: [] Assessment & Plan Assessment/Plan (1) MRSA bacteremia: PLAN: MRSA bacteremia due to pneumonia. TTE neg for veg. Bcx 08/07 neg so far. On vanc, feeling better. Wrote for 12 more days po linezolid, sent to pharm downstairs. Will follow, d/w primary team (2) Pneumonia: QUALIFIERS: Pneumonia type: due to unspecified organism Laterality: right Lung location: unspecified part of lung Qualified Code(s): J18.9 - Pneumonia, unspecified organism
--- NOTE | 2021-08-10 11:14 | CASEMGMT ---
Pt states has glucometer with supplies at home and states no further needs. SStmonica RN CM
--- NOTE | 2021-08-10 11:21 | CPS ---
pep on own
--- NOTE | 2021-08-10 11:29 | PHA.DC.MR ---
Pharmacy Service has performed discharge medication reconciliation for this patient. The patient's discharge medication list was reviewed for discrepancies and discrepancies were resolved. Attempted to call and senior vice president & general counsel due to contact precautions but patient did not answer. Home Medications meclizine 25 mg PO 4X/DAY PRN PRN 03/17/16 epinephrine 0.3 mg IM Q15M PRN #2 ea 10/07/20 albuterol sulfate 2 puff INHALATION Q6H PRN PRN 08/04/21 gabapentin 400 mg PO TID 08/04/21 guaifenesin [Mucus Relief ER] 600 mg PO Q12H PRN PRN 08/04/21 insulin aspart U-100 [Novolog Flexpen U-100 Insulin] 20 - 25 sliding scale dose SUBCUT BID 08/04/21 levocetirizine 5 mg PO QHS 08/04/21 valsartan 160 mg PO DAILY 08/04/21 amlodipine 5 mg PO DAILY 30 Days #30 tab 08/10/21 atorvastatin 80 mg PO QHS 30 Days #30 tab 08/10/21 benzonatate 200 mg PO TID PRN 7 Days #21 cap 08/10/21 hydrochlorothiazide 12.5 mg PO DAILY 30 Days #30 cap 08/10/21 insulin glargine-yfgn 90 unit SUBCUT QHS 30 Days #27 ml 08/10/21 insulin lispro [Humalog KwikPen Insulin] 30 unit SUBCUT TIDAC 30 Days #27 ml 08/10/21 linezolid 600 mg PO Q12H 12 Days #24 tab 08/10/21
[2021-08-10 11:30] LABS: Bedside Glucose 304 mg/dL (74-106)
[2021-08-10 12:33] LABS: Pathologist Review Reviewed
[2021-08-10 12:47] LABS: Pathologist Review Reviewed
== END 2021-08-10 15:37 | disposition home or self-care (01) | DRG 177 ==
LOC: ED 15:30 → PCU 16:44
PROVIDERS: Internal Medicine; Internal Medicine Critical Care Medicine; Nurse Practitioner Family; Admitting Provider Family Medicine; Emergency Provider Emergency Medicine; PCP Nurse Practitioner Family; Visit Provider Internal Medicine
DX: J15.212 Pneumonia due to Methicillin resistant Staphylococcus aureus (principal); E11.10 Type 2 diabetes mellitus with ketoacidosis without coma; R78.81 Bacteremia; E66.2 Morbid (severe) obesity with alveolar hypoventilation; Z68.43 Body mass index [BMI] 50.0-59.9, adult; J90 Pleural effusion, not elsewhere classified; R04.2 Hemoptysis; E11.65 Type 2 diabetes mellitus with hyperglycemia; Z79.4 Long term (current) use of insulin; I10 Essential (primary) hypertension; E78.5 Hyperlipidemia, unspecified; Z79.84 Long term (current) use of oral hypoglycemic drugs; Z28.310 Unvaccinated for COVID-19; Z28.9 Immunization not carried out for unspecified reason; Z87.891 Personal history of nicotine dependence
CPT/HCPCS: 36415; 71045; 71046; 71275; 80048; 80053; 80202; 81001; 82009; 82962; 83036; 83605; 83735; 84484; 85025; 85379; 87040; 87070; 87077; 87186; 87205; 87449; 87633; 87641; 93005; 93306; 94640; 94660; 94667; 94668; 94760; 96374; 99251; 99283; 99285; J7030; J7040; Q9957; Q9967; A4216; C8929; G0463; J0295

== ENCOUNTER 2021-08-14 12:35 | Emergency (ER) | payer MEDICARE, SELFPAY ==
[2021-08-14 12:36] VITALS: BP 132/93; PULSE 109; RESP 22; TEMP 36; O2SAT 93; BMI 58.1
--- NOTE | 2021-08-14 13:00 | RAD_ITS ---
STUDY: X-RAY CHEST REASON FOR EXAM: Male, 50 years old. cough TECHNIQUE: Single AP portable view of the chest. COMPARISON: 08/06/2021 FINDINGS: Increase in the dense alveolar opacity in the lower right lung consistent with worsening right middle lobe pneumonia. There is no demonstrated pleural abnormality. There is moderate cardiac enlargement. Normal mediastinum and patrice. Normal visualized pulmonary arteries. Normal visualized aortic arch and descending thoracic aorta. Normal visualized thoracic spine. Normal visualized ribs, clavicles, and shoulders. There is no demonstrated abnormality of the visualized soft tissue structures of the upper abdomen. RAD/Chest 1 View (Portable) IMPRESSION: Worsening right middle lobe pneumonia. Electronically Signed: Pasha Smith MD at 14:20 EDT ,
[2021-08-14 13:07] LABS: Absolute Lymphocyte Count 1.26 X10^3/uL (0.83-4.51); Absolute Neutrophil Count 12.9 X10^3/uL (2.0-7.7); Basophil# 0.08 X10^3/uL; Basophil% 0.5 % (0-1); Eosinophil# 0.09 X10^3/uL; Eosinophils% 0.6 % (0-5); Hematocrit 37.9 % (40-54); Hemoglobin 12.1 g/dL (13.0-16.5); Lymphocyte # 1.26 X10^3/ul (0.83-4.51); Mean Corp Hgb Conc 31.9 g/dL (32-36); Mean Corpuscular Hgb 28.3 pg (27.0-32.0); Mean Corpuscular Volume 88.6 fL (80-94); Mean Platelet Vol. 10.9 fl (6.2-12.0); Monocyte# 1.01 X10^3/uL; Monocyte% 6.4 % (0-10); NRBC Flagged by Analyzer 0 % (0-5); Neutrophil # 12.87 X10^3/uL (2.7-7.7); Neutrophil % 82.1 % (47-70); Platelet Count 373 K/mm3 (150-450); RBC Distribution Width CV 13.2 % (11.6-14.6); Red Blood Count 4.28 M/mm3 (4.6-6.2); White Blood Count 15.7 K/mm3 (4.4-11.0)
[2021-08-14 13:09] VITALS: O2SAT 93
[2021-08-14 13:20] LABS: Anion Gap 7 (5-15); BUN 9 mg/dL (7-18); BUN/Creat Ratio 9.1 RATIO (10-20); Calcium,Total 8.6 mg/dL (8.5-10.1); Chloride 95 mmol/L (98-107); Creatinine, Serum 0.99 mg/dL (0.70-1.30); EST Glomerular Filtration Rate 84 mL/min (>60); Est Glom Filt Rate - Afr Amer 102 mL/min (>60); Estimated Creatinine Clearance 79.66 ml/min; Glucose 331 mg/dL (74-106); Potassium 4.1 mmol/L (3.5-5.1); Sodium Level 133 mmol/L (136-145)
[2021-08-14] MEDS: Ipratropium/Albuterol Sulfate 3 ML AMPUL.NEB INHALATION (13:45)
[2021-08-14 13:46] VITALS: PULSE 108; RESP 20
--- NOTE | 2021-08-14 14:21 | ED.VIS.DYS ---
HPI History of Present Illness Chief Complaint: Cough Informant: patient Narrative Narrative: 50-year-old male was recently admitted for MRSA bacteremia and pneumonia. He was seen by infectious disease and is currently still on linezolid. He states that he finished his prednisone. He comes in today noting that he has an increase in his cough. He states that his cough seems to be coming more from his throat. He does still get some sputum up. He denies any postnasal drip or rhinorrhea. No fever. He has not been using his inhaler and he has no nebulizer machine at home. [facility] Medical History BiPAP (biphasic positive airway pressure) dependence Diabetes mellitus, type 2 Former smoker Former tobacco use GERD (gastroesophageal reflux disease) HLD (hyperlipidemia) HTN (hypertension) Morbid obesity NICHOLE treated with BiPAP Sleep apnea Home Medications meclizine 25 mg PO 4X/DAY PRN PRN 03/17/16 [History Last Taken Unknown] epinephrine 0.3 mg IM Q15M PRN #2 ea 10/07/20 [Rx Last Taken Unknown] albuterol sulfate 2 puff INHALATION Q6H PRN PRN 08/04/21 [History Last Taken Unknown] gabapentin 400 mg PO TID 08/04/21 [History Last Taken Unknown] guaifenesin [Mucus Relief ER] 600 mg PO Q12H PRN PRN 08/04/21 [History Last Taken Unknown] insulin aspart U-100 [Novolog Flexpen U-100 Insulin] 20 - 25 sliding scale dose SUBCUT BID 08/04/21 [History Last Taken Unknown] levocetirizine 5 mg PO QHS 08/04/21 [History Last Taken Unknown] valsartan 160 mg PO DAILY 08/04/21 [History Last Taken Unknown] amlodipine 5 mg PO DAILY 30 Days #30 tab 08/10/21 [Rx Last Taken Unknown] atorvastatin 80 mg PO QHS 30 Days #30 tab 08/10/21 [Rx Last Taken Unknown] benzonatate 200 mg PO TID PRN 7 Days #21 cap 08/10/21 [Rx Last Taken Unknown] hydrochlorothiazide 12.5 mg PO DAILY 30 Days #30 cap 08/10/21 [Rx Last Taken Unknown] insulin glargine-yfgn 90 unit SUBCUT QHS 30 Days #27 ml 05/24/22 [Rx Last Taken Unknown] insulin lispro [Humalog KwikPen Insulin] 30 unit SUBCUT TIDAC 30 Days #27 ml 08/10/21 [Rx Last Taken Unknown] linezolid 600 mg PO Q12H 12 Days #24 tab 08/10/21 [Rx Last Taken Unknown] prednisone 60 mg PO DAILY #15 tablet 08/14/21 [Rx Last Taken Unknown] Allergy/AdvReac Type Severity Reaction Status Date / Time bee venom protein (honey bee) Allergy Swelling Verified 08/14/21 12:36 Penicillins Allergy RASH/LONG Verified 08/14/21 12:36 TIME TO WAKE ME UP Family History Mother Lung cancer with associated tobacco use history. Father Heart disease CHF (congestive heart failure) Hypertension Surgical History S/P appendectomy Social History household members: spouse Smoking Status: Former smoker how long ago did patient quit smoking: Quit 30-33 years prior, started 1.5 ppd at age 9. alcohol intake: never substance use type: does not use ROS ROS ED Constitutional Constitutional ED: Denies chills, fever(s) or weight loss Eyes Eyes: Denies change in vision or diplopia ENT ENT ED: Denies ear pain, rhinorrhea or sore throat Cardiovascular Cardiovascular: Denies chest pain, orthopnea, palpitations or racing heartbeat Respiratory/Chest Respiratory/Chest: Reports cough; Denies dyspnea or orthopnea Gastrointestinal Gastrointestinal: Denies abdominal pain, diarrhea, nausea or vomiting Genitourinary Genitourinary ED: Denies dysuria, hematuria or urinary frequency Musculoskeletal Musculoskeletal: Denies arthralgias or myalgias Integumentary Denies abscess or rash Neurologic Neurologic: Denies headache(s) or weakness Psychiatric Psychiatric: Denies anxiety, depression, suicidal ideation or suicidal thoughts Endocrine Endocrinology: Denies polydipsia, polyphagia or polyuria Allergic/Immunologic Allergic/Immunologic ED: Denies mouth swelling, tongue swelling or urticaria EXAM Physical Exam Const Vital Signs: 08/14/21 12:36 08/14/21 13:09 08/14/21 13:46 Temperature 96.8 F L Temperature Source Temporal Pulse Rate 109 H 108 H Respiratory Rate 22 H 20 H Respiratory Effort Normal Non-Labored Respiratory Depth Normal Respiratory Pattern Normal Blood Pressure 132/93 H Blood Pressure Mean 106 Pulse Ox 93 Oxygen Delivery Method Room Air Room Air Positive well nourished, well developed and obese General Appearance ED: well developed Nutritional Appearance: obese HEENT Reports normocephalic, head/scalp atraumatic, TM's clear and moist mucous membranes HEENT Narrative: I do not appreciate any oropharyngeal erythema or postnasal drip. No significant rhinorrhea. atraumatic Tympanic Membrane ED: Yes TM's clear Eyes PERRL and EOMs intact bilaterally Neck no lymphadenopathy, supple and no JVD Resp normal respiratory effort and clear to auscultation bilaterally Cardio regular rate, regular rhythm and no murmurs GI normal to inspection, nondistended, normoactive bowel sounds and non-tender Palpation: soft Back/Spine no CVA tenderness and normal ROM Extremity normal to inspection General Extremety ED: Negative for edema General Extremity: Negative for edema Neuro oriented x3 and CN's II-XII intact bilaterally Sensorium / Orientation: alert Motor Exam: strength 5/5 throughout Psych mental status grossly normal Mood & Affect: Negative for depressed or tearful Skin no rashes or lesions noted and no wounds MDM MDM MDM Narrative Medical decision making narrative: Basic blood work showed a white count of 15.7 but the patient is still on antibiotics and just finished prednisone. BMP showed glucose of 331. Interpretation of the chest x-ray is continued right lower lobe pneumonia. Patient received a breathing treatment and was feeling better with decreased cough. He is not requiring any oxygen either here in the emergency department or at home. He is not feeling short of breath just more of a persistent cough. He is not febrile. Lung sounds are clear though body habitus could hide abnormal breath sounds. Were going to encourage him to use his albuterol 3 puffs every 3 hours. Were going to continue the antibiotics and a few more days of prednisone. I am going to get him a pocket chamber for his inhaler. Lab Data Attestation: I reviewed the patient's lab results. Labs: Laboratory Results - last 24 hr 08/14/21 08/14/21 13:00 13:00 WBC 15.7 H RBC 4.28 L Hgb 12.1 L Hct 37.9 L MCV 88.6 MCH 28.3 MCHC 31.9 L RDW Std Deviation 43.0 RDW Coeff of Anna 13.2 Plt Count 373 MPV 10.9 Immature Gran % (Auto) 2.400 H Neut % (Auto) 82.1 H Lymph % (Auto) 8.0 L [place] % (Auto) 6.4 Eos % (Auto) 0.6 Baso % (Auto) 0.5 Absolute Neuts (auto) 12.9 H Absolute Lymphs (auto) 1.26 Nucleated RBC % 0 Sodium 133 L Potassium 4.1 Chloride 95 L Carbon Dioxide 31.0 Anion Gap 7 BUN 9 Creatinine 0.99 Estim Creat Clear Calc 79.66 Est GFR (MDRD) Af Amer 102 Est GFR (MDRD) Non-Af 84 BUN/Creatinine Ratio 9.1 L Glucose 331 H Calcium 8.6 Radiography Diagnostic Testing: Clinical Impression(s) from Imaging Studies Chest X-Ray 08/14/21 13:00 IMPRESSION: Worsening right middle lobe pneumonia. Electronically Signed: Pasha Smith MD at 14:20 EDT , Discharge Plan Triage Chief Complaint: Cough Other Complaint: Shortness of Breath ED Provider: Roland Carpio Dx/Rx/DC Orders Clinical Impression: Pneumonia, Cough Prescriptions: New prednisone 20 MG tablet 60 mg PO DAILY Qty: 15 RF: 0 No Action meclizine 25 MG tablet 25 mg PO 4X/DAY PRN PRN (Reason: Dizziness) RF: 0 epinephrine 0.3 mg/0.3 mL auto-injector 0.3 mg IM Q15M PRN (Reason: anaphylaxis) Qty: 2 RF: 0 gabapentin 400 mg capsule 400 mg PO TID RF: 0 albuterol sulfate 90 mcg/actuation HFA aerosol inhaler 2 puff INHALATION Q6H PRN PRN (Reason: Shortness Of Breath) RF: 0 valsartan 160 mg tablet 160 mg PO DAILY RF: 0 insulin aspart U-100 [Novolog Flexpen U-100 Insulin] 100 unit/mL (3 mL) insulin pen 20 - 25 sliding scale dose SUBCUT BID RF: 0 levocetirizine 5 mg tablet 5 mg PO QHS RF: 0 guaifenesin [Mucus Relief ER] 600 mg tablet extended release 12hr 600 mg PO Q12H PRN PRN (Reason: Cough) RF: 0 linezolid 600 mg tablet 600 mg PO Q12H 12 Days Qty: 24 RF: 0 atorvastatin 80 mg Tablet 80 mg PO QHS 30 Days Qty: 30 RF: 0 insulin glargine-yfgn 100 unit/mL (3 mL) Insulin Pen 90 unit subcut QHS 30 Days Qty: 27 RF: 0 amlodipine 5 mg Tablet 5 mg PO DAILY 30 Days Qty: 30 RF: 0 benzonatate 100 mg Capsule 200 mg PO TID PRN (Reason: cough) 7 Days Qty: 21 RF: 0 hydrochlorothiazide 12.5 mg Capsule 12.5 mg PO DAILY 30 Days Qty: 30 RF: 0 insulin lispro [Humalog KwikPen Insulin] 100 unit/mL Insulin Pen 30 unit subcut TIDAC 30 Days Qty: 27 RF: 0 Primary Care Provider: Pasha Cummins NP Referrals: Jaden Tipton MD [STAFF PHYSICIAN] - [facility] appointment Pasha Cummins NP, PROFESSOR OF SPORT MANAGEMENT-C [Primary Care Provider] - Keep [facility] appointment Activity Restrictions/Additional Instructions: Use the pocket chamber you are given and take 3 puffs of albuterol every 3 hours while awake. Disposition Disposition: Home, Self Care
[2021-08-14] MEDS: INHALER, ASSIST DEVICES 1 EACH SPACER INHALATION (14:43)
[2021-08-14 14:44] VITALS: RESP 18; O2SAT 96
== END 2021-08-14 14:44 | disposition home or self-care (01) ==
PROVIDERS: Emergency Provider Emergency Medicine; PCP Nurse Practitioner Family; Visit Provider Emergency Medicine
DX: J18.9 Pneumonia, unspecified organism (principal); E66.01 Morbid (severe) obesity due to excess calories; Z68.43 Body mass index [BMI] 50.0-59.9, adult; E11.9 Type 2 diabetes mellitus without complications; Z79.4 Long term (current) use of insulin; I10 Essential (primary) hypertension; E78.5 Hyperlipidemia, unspecified; G47.33 Obstructive sleep apnea (adult) (pediatric); Z79.899 Other long term (current) drug therapy; Z87.891 Personal history of nicotine dependence
CPT/HCPCS: 71045; 80048; 85025; 87428; 94640; 99283

== ENCOUNTER → 2021-09-10 | Outpatient (CLI) | payer MEDICARE, SELFPAY ==
--- NOTE | 2021-09-10 07:20 | RAD_ITS ---
EXAM: XR CHEST, 2 VIEWS CLINICAL INDICATION: COUGH TECHNIQUE: Frontal and lateral views of the chest. This report was created using [employer] report generation technology. COMPARISON: 08/04/2021. FINDINGS: LUNGS AND PLEURAL SPACES: Persistent but decreased pleural and parenchymal disease right lower chest. No pneumothorax. HEART: Unremarkable. Cardiac silhouette not enlarged. MEDIASTINUM: Central airways and mediastinal contour are unremarkable. BONES/JOINTS: Unremarkable. SOFT TISSUES: Unremarkable. RAD/Chest PA and Lateral IMPRESSION: Persistent but decreased pleural and parenchymal disease right lower chest. Electronically Signed: Guido Marie MD at 7:43 EDT ,
== END | disposition home or self-care (01) ==
LOC: RAD 07:12
PROVIDERS: PCP Nurse Practitioner Family; Referring Provider Nurse Practitioner Family; Visit Provider Nurse Practitioner Family
DX: J15.212 Pneumonia due to Methicillin resistant Staphylococcus aureus (principal); J45.901 Unspecified asthma with (acute) exacerbation; R05.3 Chronic cough; R93.89 Abnormal findings on diagnostic imaging of other specified body structures
CPT/HCPCS: 71046

== ENCOUNTER → 2021-09-13 | Outpatient (CLI) | payer MEDICARE, SELFPAY | END | disposition home or self-care (01) | LOC: LABSPEC 14:16 | PROVIDERS: PCP Nurse Practitioner Family; Referring Provider Nurse Practitioner Adult Health; Visit Provider Nurse Practitioner Adult Health | DX: R78.71 Abnormal lead level in blood (principal); B95.62 Methicillin resistant Staphylococcus aureus infection as the cause of diseases classified elsewhere | CPT/HCPCS: 87070; 87205 ==

== ENCOUNTER → 2021-10-07 | Outpatient (CLI) | payer MEDICARE, SELFPAY ==
--- NOTE | 2021-10-07 14:19 | RAD_ITS ---
STUDY: X-RAY - RIGHT KNEE REASON FOR EXAM: Male, 51 years old. PAIN TECHNIQUE: 3 view(s) of the knee. COMPARISON: Comparison is made with prior study dated 03/18/2016. FINDINGS: Normal visualized distal femur. Normal visualized proximal tibia and fibula. Normal proximal tibiofibular articulation. There is moderate degenerative arthrosis of the medial femorotibial compartment with moderate joint space narrowing. Normal lateral femorotibial compartment. There is mild degenerative arthrosis of the patellofemoral articulation. Small joint effusion. RAD/Knee 3 Views IMPRESSION: Degenerative arthrosis. Small joint effusion. Electronically Signed: Arturo Burnette MD at 15:43 EDT ,
== END | disposition home or self-care (01) ==
PROVIDERS: PCP Nurse Practitioner Family; Referring Provider Nurse Practitioner Family; Visit Provider Nurse Practitioner Family
DX: M25.561 Pain in right knee (principal)
CPT/HCPCS: 73562

== ENCOUNTER → 2022-01-15 | Outpatient (CLI) | payer MEDICARE, SELFPAY ==
[2022-01-15 16:29] LABS: Hemoglobin A1c 8.8 % (3.8-5.6)
[2022-01-15 16:55] LABS: AST(SGOT) 16 U/L (15-37); Alanine Aminotransfer ALT/SGPT 25 U/L (16-61); Albumin, Serum 3.3 g/dL (3.2-5.0); Alkaline Phosphatase 97 U/L (45-117); Anion Gap 6 (5-15); BUN 16 mg/dL (7-18); BUN/Creat Ratio 20.6 RATIO (10-20); Calcium,Total 8.7 mg/dL (8.5-10.1); Chloride 104 mmol/L (98-107); Cholesterol 281 mg/dL (200); Creatinine, Serum 0.78 mg/dL (0.70-1.30); EST Glomerular Filtration Rate 112 mL/min (>60); Est Glom Filt Rate - Afr Amer 135 mL/min (>60); Globulin 3.2 g/dL (2.2-4.2); Glucose 138 mg/dL (74-106); High Density Lipoprotein 44 mg/dL; Potassium 3.9 mmol/L (3.5-5.1); Protein, Total 6.5 g/dL (6.4-8.2); Sodium Level 139 mmol/L (136-145); Triglycerides 125 mg/dL; Very Low Density Lipoprotein 25 mg/dL (5-40)
== END | disposition home or self-care (01) ==
LOC: LAB 07:01
PROVIDERS: PCP Nurse Practitioner Family; Visit Provider Nurse Practitioner Family
DX: E11.9 Type 2 diabetes mellitus without complications (principal); J15.212 Pneumonia due to Methicillin resistant Staphylococcus aureus; J44.0 Chronic obstructive pulmonary disease with (acute) lower respiratory infection; I10 Essential (primary) hypertension; E78.5 Hyperlipidemia, unspecified; E55.9 Vitamin D deficiency, unspecified; R94.30 Abnormal result of cardiovascular function study, unspecified
CPT/HCPCS: 36415; 80053; 80061; 82306; 83036

== ENCOUNTER → 2022-04-15 | Outpatient (CLI) | payer MEDICARE, SELFPAY ==
--- NOTE | 2022-04-15 12:35 | RAD_ITS ---
STUDY: X-RAY - LEFT KNEE REASON FOR EXAM: Male, 51 years old. Pain. TECHNIQUE: 3 view(s) of the knee. COMPARISON: None. FINDINGS: Osteopenia. Moderate arthrosis of the medial compartment with osteophyte formation. Mild arthrosis of the lateral compartment with osteophyte formation. Mild arthrosis of the patellofemoral compartment. Normal visualized soft tissues. RAD/Knee 3 Views IMPRESSION: Osteopenia with tricompartmental arthrosis as described. No acute abnormality, chondrocalcinosis or erosive changes. Electronically Signed: John Andres, at 13:27 EST ,
== END | disposition home or self-care (01) ==
LOC: RAD 12:33
PROVIDERS: PCP Nurse Practitioner Family; Visit Provider Nurse Practitioner Family
DX: M17.12 Unilateral primary osteoarthritis, left knee (principal)
CPT/HCPCS: 73562

== ENCOUNTER → 2022-04-30 | Outpatient (CLI) | payer MEDICARE, SELFPAY ==
[2022-04-30 08:05] LABS: Hematocrit 44.1 % (40-54); Hemoglobin 14.4 g/dL (13.0-16.5); Mean Corp Hgb Conc 32.7 g/dL (32-36); Mean Corpuscular Hgb 28.7 pg (27.0-32.0); Mean Platelet Vol. 11.4 fl (6.2-12.0); Platelet Count 249 K/mm3 (150-450); RBC Distribution Width CV 13.1 % (11.6-14.6); Red Blood Count 5.01 M/mm3 (4.6-6.2); White Blood Count 6.8 K/mm3 (4.4-11.0)
[2022-04-30 08:32] LABS: AST(SGOT) 15 U/L (15-37); Alanine Aminotransfer ALT/SGPT 25 U/L (16-61); Albumin, Serum 3.3 g/dL (3.2-5.0); Alkaline Phosphatase 97 U/L (45-117); Anion Gap 5 (5-15); BUN 19 mg/dL (7-18); BUN/Creat Ratio 23.1 RATIO (10-20); Calcium,Total 8.8 mg/dL (8.5-10.1); Chloride 107 mmol/L (98-107); Cholesterol 202 mg/dL (200); Creatinine, Serum 0.82 mg/dL (0.70-1.30); EST Glomerular Filtration Rate 104 mL/min (>60); Est Glom Filt Rate - Afr Amer 126 mL/min (>60); Globulin 3.3 g/dL (2.2-4.2); Glucose 191 mg/dL (74-106); Hemoglobin A1c 9.3 % (3.8-5.6); High Density Lipoprotein 47 mg/dL; Iron 72 ug/dL (65-175); Iron Binding Capacity,Total 270 ug/dL (250-450); Potassium 3.9 mmol/L (3.5-5.1); Protein, Total 6.6 g/dL (6.4-8.2); Sodium Level 142 mmol/L (136-145); Triglycerides 99 mg/dL; Very Low Density Lipoprotein 20 mg/dL (5-40)
[2022-05-02 08:07] LABS: Vitamin D,25 Hydroxy 27.8 ng/mL
== END | disposition home or self-care (01) ==
LOC: LAB 07:13
PROVIDERS: PCP Nurse Practitioner Family; Referring Provider Nurse Practitioner Family; Visit Provider Nurse Practitioner Family
DX: E11.9 Type 2 diabetes mellitus without complications (principal); D50.9 Iron deficiency anemia, unspecified; I10 Essential (primary) hypertension; E78.5 Hyperlipidemia, unspecified; E55.9 Vitamin D deficiency, unspecified
CPT/HCPCS: 36415; 80053; 80061; 82306; 83036; 83540; 83550; 85027

== ENCOUNTER → 2022-05-17 | Outpatient (CLI) | payer MEDICARE, SELFPAY ==
--- NOTE | 2022-05-17 15:23 | RAD_ITS ---
EXAM: XR LEFT KNEE, 3 VIEWS CLINICAL INDICATION: KNEE PAIN TECHNIQUE: Three views of the left knee. This report was created using [employer] report generation technology. COMPARISON: 04/15/2022 FINDINGS: BONES/JOINTS: There is moderate narrowing of the medial knee joint with osteophyte formation. There is minimal lateral joint space narrowing. There is an ill-defined calcific density seen along the cortex of the distal medial femur. No acute fracture. No subluxation. Normal alignment. SOFT TISSUES: Unremarkable. No soft tissue swelling or gas. No radiopaque foreign body. RAD/Knee 3 Views IMPRESSION: 1. No change in degenerative changes in the knee with joint space narrowing and osteophyte formation greater in the medial aspect of the lateral aspect. 2. Ill-defined soft tissue calcification abutting against the medial femoral cortex. Further evaluation with imaging of the femur may be beneficial. Electronically Signed: Jose L Alvares MD at 16:29 EST ,
--- NOTE | 2022-05-17 15:23 | RAD_ITS ---
EXAM: XR RIGHT KNEE, 3 VIEWS CLINICAL INDICATION: KNEE PAIN TECHNIQUE: Three views of the right knee. This report was created using [employer] report generation technology. COMPARISON: 10/07/2021 FINDINGS: BONES/JOINTS: There is moderate narrowing of the medial knee joint space with osteophyte formation. No acute fracture. No subluxation. Normal alignment. No sclerotic or destructive changes observed. SOFT TISSUES: Unremarkable. No soft tissue swelling or gas. No radiopaque foreign body. RAD/Knee 3 Views IMPRESSION: Degenerative change with narrowing of the medial knee joint. There has been no significant change from the reference exam. Electronically Signed: Jose L Alvares MD at 16:12 EST ,
== END | disposition home or self-care (01) ==
LOC: RAD 15:19
PROVIDERS: PCP Nurse Practitioner Family; Visit Provider Nurse Practitioner Family
DX: M25.562 Pain in left knee (principal); G89.29 Other chronic pain
CPT/HCPCS: 73562

== ENCOUNTER → 2022-05-20 | Outpatient (CLI) | payer MEDICARE, SELFPAY ==
--- NOTE | 2022-05-20 13:01 | VDLE_ITS ---
Reason For Study: Edema RIGHT GSV is normal. CFV is compressible, spontaneous, phasic, competent and demonstrates normal augmentation. FV is compressible, spontaneous, phasic, competent and demonstrates normal augmentation. POP V is compressible, spontaneous, phasic, competent and demonstrates normal augmentation. T/P Trunk is compressible. PTV is compressible. RT PerV is compressible. Procedure This is a venous duplex using B-mode, color flow and spectral Doppler. Exam performed in department. A preliminary report was called and/or faxed to [facility]. VL/Venous Duplex US, Unilateral Interpretation Summary There is no evidence of right lower extremity deep vein thrombosis. Right great saphenous vein appears patent and compressible segmentally. Ordering Physician: Pasha Cummins Referring Physician: Pasha Cummins Performed By: Doris Veloz RVT
== END | disposition home or self-care (01) ==
LOC: CVS 12:59
PROVIDERS: PCP Nurse Practitioner Family; Visit Provider Nurse Practitioner Family
DX: R60.0 Localized edema (principal)
CPT/HCPCS: 93971

== ENCOUNTER 2022-07-11 14:44 | Observation (INO) | payer MEDICARE, SELFPAY ==
[2022-07-11 14:45] VITALS: BP 171/96; PULSE 78; RESP 18; TEMP 36.7; O2SAT 100
[2022-07-11 16:11] LABS: Bedside Glucose 133 mg/dL (74-106)
[2022-07-11 16:40] VITALS: BP 142/76; PULSE 80; RESP 18; O2SAT 97
--- NOTE | 2022-07-11 16:40 | EKG12_ITS ---
Test Reason : DIZZY Blood Pressure : / mmHG Vent. Rate : 077 BPM Atrial Rate : 077 BPM P-R Int : 156 ms QRS Dur : 140 ms QT Int : 404 ms P-R-T Axes : -07 -59 024 degrees QTc Int : 457 ms Sinus rhythm with Premature atrial complexes Right bundle branch block Left anterior fascicular block Bifascicular block Abnormal ECG Confirmed by DIDI SPRAGUE, ELLE ([id number]), news assignment editor ANGELICA VALERIO ([id number]) on 07/14/2022 9:16:33 AM Referred By: Confirmed By:ELLE TOLBERT MD
--- NOTE | 2022-07-11 16:40 | CT_ITS ---
We are attempting to reach an attending provider to discuss findings. An addendum with communication details will be sent when the communication is complete. INDICATION: Neuro deficit, acute, stroke suspected EXAMINATION: CT BRAIN - CT Head Stroke Protocol W/O Contrast Injection TECHNIQUE: Multiple axial images were obtained of the head without intravenous contrast. A radiation dose optimization technique was used for this scan. IV Contrast dosage and agent: None. COMPARISON: FINDINGS: BRAIN PARENCHYMA: No intra- or extra-axial hemorrhage. No evidence of acute infarct. No intracranial mass or mass effect. There is preservation of the cuenca/white matter interface. Posterior fossa structures are unremarkable. CSF SPACES: Appropriate for age. No hydrocephalus. Basal cisterns are patent. CALVARIUM, SKULL BASE, PARANASAL SINUSES AND MASTOID AIR CELLS: Mild mucosal thickening in the right maxillary sinus. No discrete lytic or blastic abnormalities. ORBITS: Both globes, extraocular muscles, optic nerves and retrobulbar fat appear unremarkable. CT/STROKE Brain/Head without Cont IMPRESSION: Negative Brain CT without contrast. Electronically Signed: Carson Fajardo DO at 18:02 EDT ,
--- NOTE | 2022-07-11 16:41 | CT_ITS ---
INDICATION: Neuro deficit, acute, stroke suspected EXAMINATION: CT BRAIN WITH CONTRAST TECHNIQUE: Noncontrast axial images were obtained of the brain. Subsequently, routine carotid CT angiogram protocol was performed without and with IV contrast. In addition, images were obtained of the [place]. NASCET criteria using the distal ICAs for comparison were used for evaluation of stenoses. 3D reconstructions were reviewed. A radiation dose optimization technique was used for this scan. IV Contrast dosage and agent: COMPARISON: None. FINDINGS: --CT BRAIN: BRAIN PARENCHYMA: No intra- or extra-axial hemorrhage. No evidence of acute infarct. No intracranial mass or mass effect. There is preservation of the cuenca/white matter interface. Posterior fossa structures are unremarkable. CSF SPACES: Appropriate for age. No hydrocephalus. Basal cisterns are patent. CALVARIUM, SKULL BASE, PARANASAL SINUSES AND MASTOID AIR CELLS: Clear. No discrete lytic or blastic abnormalities. --CTA NECK: AORTIC ARCH AND BRANCHES: Mildly calcified, without hemodynamically significant stenosis. RIGHT CCA: Minimally calcified with no occlusion, significant stenosis or dissection. RIGHT CAROTID BULB: Mildly calcified with no hemodynamically significant stenosis. RIGHT ICA: No occlusion, significant stenosis or dissection. LEFT CCA: Minimally calcified with no occlusion, significant stenosis or dissection. LEFT CAROTID BULB: Mildly calcified with no hemodynamically significant stenosis. LEFT ICA: Minimal calcifications with no occlusion, significant stenosis or dissection. RIGHT VERTEBRAL ARTERY: No occlusion, significant stenosis or dissection. LEFT VERTEBRAL ARTERY: No occlusion, significant stenosis or dissection. NECK SOFT TISSUES: Unremarkable. --CTA HEAD: --Anterior circulation: ICAs: Mildly calcified cavernous portion with approximately 50% stenosis of the right internal carotid artery. Probably calcified cavernous portion of the left internal carotid artery with no hemodynamically significant stenosis. ACAs: No significant stenosis at the visualized segments. ACOM: Present. MCAs: No significant stenosis at the visualized segments. --Posterior circulation: PCOMs: train electronic technician: No significant stenosis at the visualized segments. BASILAR ARTERY: No significant stenosis. VERTEBRAL ARTERIES: No significant stenosis at the intradural/visualized segments. No evidence of intracranial aneurysm or vascular malformation. CT/STROKE CTA Head AND Neck W/Con IMPRESSION: Approximately 50% luminal narrowing at the cavernous portion of the right internal carotid artery. No aneurysm or dissection. N.B. : The above Results were Read Back by Carson Fajardo DO to NELSON HURLEY and understanding confirmed on 07/11/2022 18:20:18 (ET). Electronically Signed: Carson Fajardo DO at 18:21 EDT ,
[2022-07-11 16:44] VITALS: BP 142/76; PULSE 77; RESP 18; O2SAT 97
--- NOTE | 2022-07-11 16:50 | EDS_ITS ---
HPI History of Present Illness Chief Complaint: Numb/Ting Informant: patient Narrative Narrative: Patient presents with numbness tingling in his right foot. He states this started about 9 or 930 this morning. He thought it was a very tight MAGDA hose that were on. He removed these. He thinks that might have gotten it better but is not completely sure if that was the cause of it getting better. But shortly after this he had tingling in his hand. His symptoms really were not above the ankle or wrist. But they did occurred about the same time. He had no tight structures on his arm. He had no headache. No speech or vision or balance issues. He had an episode of this about 4 months ago that resolved and he was never seen for. Patient has never had stroke or stroke type symptoms. But he does have a known history of an enlarged heart. He also type 2 diabetes, high blood pressure, he said he and unclear if he has had cholesterol problems or not. It sounds like the patient does not take his meds really well. He is tells me he takes his high blood pressure meds every day but he had not taken it for few days and he figured he ought to take it today in case he had to go see his doctor so his blood pressure was better. No prior work-up for TIA or stroke. He states other than that tingling he felt fine. It lasted for maybe half an hour or so and went away. While I was in the room he started to get it back in both the hand and the foot. He repositioned himself in the foot improved. He then was shaking the hand for a few minutes and it resolved. Even during the symptoms his NIH was still 0. He still had sensation he states it just felt numb and sort of tingling. It felt like it was asleep is what he told me. [facility] Medical History Acute respiratory failure with hypoxia Anaphylactic reaction to bee sting BiPAP (biphasic positive airway pressure) dependence Diabetes mellitus, type 2 Essential hypertension Former tobacco use GERD (gastroesophageal reflux disease) Hyperlipidemia Hypoxia Morbid obesity MRSA bacteremia Obstructive sleep apnea NICHOLE treated with BiPAP Staphylococcal pneumonia Home Medications meclizine 25 mg tablet 25 mg PO 4X/DAY PRN PRN Dizziness 03/17/16 [History Last Taken Unknown] epinephrine 0.3 mg/0.3 mL injection, auto-injector 0.3 mg (0.3 mL) IM Q15M PRN anaphylaxis #2 ea 10/07/20 [Rx Last Taken Unknown] albuterol sulfate 90 mcg/actuation aerosol inhaler 2 puff inhalation Q6H PRN PRN Shortness Of Breath 08/04/21 [History Last Taken Unknown] gabapentin 400 mg capsule 400 mg PO TID nerve pain 08/04/21 [History Last Taken Unknown] guaifenesin 600 mg tablet, extended release 12 hr (Mucus Relief ER) 600 mg PO Q12H PRN PRN Cough 08/04/21 [History Last Taken Unknown] insulin aspart U-100 100 unit/mL (3 mL) subcutaneous pen (Novolog FlexPen U-100 Insulin aspart) 20 - 25 sliding scale dose subcut BID diabetes 08/04/21 [History Last Taken Unknown] levocetirizine 5 mg tablet 5 mg PO QHS sleep 08/04/21 [History Last Taken Unknown] valsartan 160 mg tablet 160 mg PO DAILY blood pressure 08/04/21 [History Last Taken Unknown] amlodipine 5 mg tablet 5 mg PO DAILY 30 days #30 tabs 08/10/21 [Rx Last Taken Unknown] atorvastatin 80 mg tablet 80 mg PO QHS 30 days #30 tabs 08/10/21 [Rx Last Taken Unknown] benzonatate 100 mg capsule 200 mg PO TID PRN cough 7 days #21 caps 08/10/21 [Rx Last Taken Unknown] hydrochlorothiazide 12.5 mg capsule 12.5 mg PO DAILY 30 days #30 caps 08/10/21 [Rx Last Taken Unknown] insulin glargine-yfgn 100 unit/mL (3 mL) subcutaneous pen 90 unit (0.9 mL) subcut QHS 30 days #27 mL 08/10/21 [Rx Last Taken Unknown] insulin lispro 100 unit/mL subcutaneous pen (Humalog KwikPen (U-100) Insulin) 30 unit (0.3 mL) subcut TIDAC 30 days #27 mL 08/10/21 [Rx Last Taken Unknown] linezolid 600 mg tablet 600 mg PO Q12H 12 days #24 tabs 08/10/21 [Rx Last Taken Unknown] tiotropium 2.5 mcg-olodaterol 2.5 mcg/actuation mist for inhalation (Stiolto Respimat) 2 puff inhalation DAILY 09/13/21 [History Last Taken Unknown] fluticasone furoate 200 mcg/actuation blister powder for inhalation (Arnuity Ellipta) 1 inh inhalation QDAY #30 ea 05/13/22 [Rx Last Taken Unknown] Allergy/AdvReac Type Severity Reaction Status Date / Time bee venom protein (honey bee) Allergy Swelling Verified 07/11/22 14:47 Penicillins Allergy RASH/LONG Verified 07/11/22 14:47 TIME TO WAKE ME UP Family History Mother Lung cancer with associated tobacco use history. Father Heart disease CHF (congestive heart failure) Hypertension Surgical History History of appendectomy Social History household members: spouse Smoking Status: Former smoker how long ago did patient quit smoking: Quit 30-33 years prior, started 1.5 ppd at age 9. alcohol intake: never substance use type: does not use ROS ROS ED Constitutional Constitutional ED: Denies chills or fever(s) Eyes Eyes: Denies blurry vision, change in vision or diplopia ENT ENT ED: Denies rhinorrhea Cardiovascular Cardiovascular: Denies chest pain, palpitations or racing heartbeat Respiratory/Chest Respiratory/Chest: Denies cough or dyspnea Gastrointestinal Gastrointestinal: Denies nausea or vomiting Genitourinary Genitourinary ED: Denies hematuria Musculoskeletal Musculoskeletal: Denies back pain, myalgias or neck pain Integumentary Denies rash Neurologic Neurologic: Reports paresthesias; Denies headache(s) or weakness Endocrine Endocrinology: Denies polydipsia or polyuria Hematologic/Lymphatic Hematologic/Lymphatic: Denies easy bleeding or easy bruising Allergic/Immunologic Allergic/Immunologic ED: Denies urticaria EXAM Physical Exam Narrative Exam Narrative: Patient is awake alert. He is sitting on the edge of the bed. No acute distress. He carries on an easy fluid discussion although he is not the best informant for past history details. HEENT shows no facial droop numbness or rash. Neck is supple. No reproduction of the symptoms with neck motion. Lungs are clear bilaterally. Sats are 100% on room air showing no hypoxia. Heart sounds regular. I hear no ectopy. Does not sound like A-fib. Abdomen is obese but otherwise benign. Extremities do show some edema but not marked. He does have indentation where his MAGDA hose were on both legs. Pulses are intact there is no sign of ischemic extremities. Neurologically he is awake alert appropriate. His NIH is 0. Even when he redevelops his symptoms of his right upper and lower extremity he still has sensation. He still has coordination and he still has strength. But he states that they feel asleep and they do not feel like his extremities at that time. This lasted for just a few minutes and then goes away. Const Vital Signs: 07/11/22 14:45 07/11/22 16:40 07/11/22 16:40 Temperature 98.1 F Temperature Source Temporal Pulse Rate 78 80 Respiratory Rate 18 18 Blood Pressure 171/96 H 142/76 H Blood Pressure Mean 121 98 Pulse Ox 100 97 Oxygen Delivery Method Room Air Room Air Room Air 07/11/22 16:44 07/11/22 18:10 Temperature Temperature Source Pulse Rate 77 83 Respiratory Rate 18 15 Blood Pressure 142/76 H 142/76 H Blood Pressure Mean 98 98 Pulse Ox 97 98 Oxygen Delivery Method Room Air Room Air MDM MDM MDM Narrative Medical decision making narrative: Patient was rechecked. He still asymptomatic now. Patient CBC is overall normal Patient's glucose was 1 3 9 electrolytes showed no marked abnormality. Glucose was high at 185. Coags were negative My independent interpretation of the patient's CT of the head shows no sign of acute bleeding or mass. Final reading of the CT of the head is negative for acute. CTA does show some narrowing but most prominently on the right side which would not likely be the source of his symptoms. However, this patient is obese diabetic hypertensive high cholesterol high risk for stroke and heart disease. He had an episode of this right-sided numbness tingling feeling about 4 months ago. He has now had 2 episodes today. Since it involves both the right upper and lower extremity with his risk factor I do feel that this is a risk for TIA. I have hospitalist on page to discuss the case with them. Lab Data Labs: Laboratory Results - last 24 hr 07/11/22 07/11/22 07/11/22 15:49 17:30 17:30 WBC 7.5 RBC 5.32 Hgb 15.1 Hct 46.8 MCV 88.0 MCH 28.4 MCHC 32.3 RDW Std Deviation 42.4 RDW Coeff of Anna 13.2 Plt Count 320 MPV 10.4 Immature Gran % (Auto) 0.500 Neut % (Auto) 72.4 H Lymph % (Auto) 20.3 [place] % (Auto) 5.2 Eos % (Auto) 0.9 Baso % (Auto) 0.7 Absolute Neuts (auto) 5.5 Absolute Lymphs (auto) 1.53 Nucleated RBC % 0 PT Cancelled INR Cancelled APTT Cancelled Sodium Potassium Chloride Carbon Dioxide Anion Gap BUN Creatinine Est GFR (MDRD) Af Amer Est GFR (MDRD) Non-Af BUN/Creatinine Ratio Glucose Calcium Troponin I High Sens POC Glucose 133 H 07/11/22 07/11/22 17:30 18:10 WBC RBC Hgb Hct MCV MCH MCHC RDW Std Deviation RDW Coeff of [place] Plt Count MPV Immature Gran % (Auto) Neut % (Auto) Lymph % (Auto) [place] % (Auto) Eos % (Auto) Baso % (Auto) Absolute Neuts (auto) Absolute Lymphs (auto) Nucleated RBC % PT 13.6 INR 1.1 APTT 26.8 Sodium 136 Potassium 3.9 Chloride 104 Carbon Dioxide 32.0 Anion Gap 0 L BUN 13 Creatinine 0.84 Est GFR (MDRD) Af Amer 123 Est GFR (MDRD) Non-Af 101 BUN/Creatinine Ratio 15.4 Glucose 185 H Calcium 9.4 Troponin I High Sens 8 POC Glucose Radiography Diagnostic Testing: Clinical Impression(s) from Imaging Studies Brain CT 07/11/22 16:40 IMPRESSION: Negative Brain CT without contrast. Electronically Signed: Carson Fajardo DO at 18:02 EDT , ADDENDUM: 07/11/22 8812 IMPRESSION: Negative Brain CT without contrast. N.B. : The above Results were Read Back by Carson Fajardo DO to Nelson Hurley MD, and understanding confirmed on 07/11/2022 18:20:12 (ET). Electronically Signed: Carson Fajardo DO at 18:02 EDT , Head/Neck CTA 07/11/22 16:41 IMPRESSION: Approximately 50% luminal narrowing at the cavernous portion of the right internal carotid artery. No aneurysm or dissection. N.B. : The above Results were Read Back by Carson Fajardo DO to NELSON HURLEY and understanding confirmed on 07/11/2022 18:20:18 (ET). Electronically Signed: Carson Fajardo DO at 18:21 EDT , ADDENDUM: 07/11/22 1828 IMPRESSION: Approximately 50% luminal narrowing at the cavernous portion of the right internal carotid artery. No aneurysm or dissection. N.B. : The above Results were Read Back by Carson Fajardo DO to NELSON HURLEY and understanding confirmed on 07/11/2022 18:20:18 (ET). Electronically Signed: Carson Fajardo DO at 18:21 EDT , Chest X-Ray 07/11/22 17:36 IMPRESSION: No radiographic evidence of acute cardiopulmonary disease. Electronically Signed: Carson Fajardo DO at 18:45 EDT , EKG Initial EKG: Comments: My depend interpretation the patient's EKG done for possible dysrhythmia shows a sinus rhythm with PACs. No ventricular ectopy. There is some baseline variation. There is right bundle branch block. No acute ST elevation or depression consistent with acute infarct or ischemia. [place] interval was normal. The QRS duration is long 140 ms. QTc is relatively normal at 457 ms. Management Discussion w/another healthcare provider: Hospitalist Discharge Plan Dx/Rx/DC Orders Clinical Impression: Brain TIA, Morbid obesity, History of diabetes mellitus, type II, History of hypertension, Hx of hypercholesterolemia Disposition Disposition: Acute Care Hospital [facility]
--- NOTE | 2022-07-11 17:36 | RAD_ITS ---
INDICATION: Neuro deficit, acute, stroke suspected EXAMINATION/TECHNIQUE: X-RAY - XR Chest 1 View COMPARISON: September 10, 2021. FINDINGS: LINES/DEVICES: None. LUNGS: No consolidation, edema or effusion. No pneumothorax. MEDIASTINUM AND CARDIOVASCULAR STRUCTURES: Cardiac silhouette not enlarged. Central airways and mediastinal contour are unremarkable. BONES AND SOFT TISSUES: Unremarkable. RAD/Chest 1 View IMPRESSION: No radiographic evidence of acute cardiopulmonary disease. Electronically Signed: Carson Fajardo DO at 18:45 EDT ,
[2022-07-11 17:43] LABS: Absolute Lymphocyte Count 1.53 X10^3/uL (0.83-4.51); Absolute Neutrophil Count 5.5 X10^3/uL (2.0-7.7); Basophil# 0.05 X10^3/uL; Basophil% 0.7 % (0-1); Eosinophil# 0.07 X10^3/uL; Eosinophils% 0.9 % (0-5); Hematocrit 46.8 % (40-54); Hemoglobin 15.1 g/dL (13.0-16.5); Lymphocyte # 1.53 X10^3/ul (0.83-4.51); Lymphocyte % 20.3 % (19-41); Mean Corp Hgb Conc 32.3 g/dL (32-36); Mean Corpuscular Hgb 28.4 pg (27.0-32.0); Mean Platelet Vol. 10.4 fl (6.2-12.0); Monocyte# 0.39 X10^3/uL; Monocyte% 5.2 % (0-10); NRBC Flagged by Analyzer 0 % (0-5); Neutrophil # 5.45 X10^3/uL (2.7-7.7); Neutrophil % 72.4 % (47-70); Platelet Count 320 K/mm3 (150-450); RBC Distribution Width CV 13.2 % (11.6-14.6); RBC Distribution Width SD 42.4 fl (35.1-43.9); Red Blood Count 5.32 M/mm3 (4.6-6.2); White Blood Count 7.5 K/mm3 (4.4-11.0)
[2022-07-11 18:10] VITALS: BP 142/76; PULSE 83; RESP 15; O2SAT 98
[2022-07-11 18:10] LABS: Anion Gap 0 (5-15); BUN 13 mg/dL (7-18); BUN/Creat Ratio 15.4 RATIO (10-20); Calcium,Total 9.4 mg/dL (8.5-10.1); Chloride 104 mmol/L (98-107); Creatinine, Serum 0.84 mg/dL (0.70-1.30); EST Glomerular Filtration Rate 101 mL/min (>60); Est Glom Filt Rate - Afr Amer 123 mL/min (>60); Glucose 185 mg/dL (74-106); Potassium 3.9 mmol/L (3.5-5.1); Sodium Level 136 mmol/L (136-145); Troponin-I HS 8 pg/mL (3.0-78.0)
[2022-07-11 18:31] LABS: International Normalized Ratio 1.1; Partial Thromboplast Time 26.8 Seconds (24.1-36.2); Prothrombin Time (Protime)PT. 13.6 SECONDS (11.7-14.9)
[2022-07-11 18:48] VITALS: BMI 63.4
--- NOTE | 2022-07-11 19:39 | PCM.HP.STD ---
[facility] - General General Date of Admission: 07/11/22 Date of Service: 07/11/22 Chief Complaint: Numbness and Tingling HPI Narrative FERMÍN MORTON, is a 51 M with a significant history of hypertension, obstructive sleep apnea on home BiPAP; morbid obesity and diabetes mellitus who presents emergency department with multiple episodes of numbness and tingling of his right side. The numbness and tingling involved his right foot and moves to his right leg. Also he has numbness and tingling of his right hand which moves to his proximal right forearm. He denies any weakness or any other symptoms. He denies changes in his speech. His symptoms started several hours on the day of presentation. His symptoms last a few seconds to about 1 minutes. At the emergency department he had about 2 episodes of same symptoms. Reportedly about 4 months ago he had same symptoms but that went away. REPLACED BY [facility] Medical History Acute respiratory failure with hypoxia Anaphylactic reaction to bee sting BiPAP (biphasic positive airway pressure) dependence Diabetes mellitus, type 2 Essential hypertension Former tobacco use GERD (gastroesophageal reflux disease) Hyperlipidemia Hypoxia Morbid obesity MRSA bacteremia Obstructive sleep apnea NICHOLE treated with BiPAP Staphylococcal pneumonia Home Medications meclizine 25 mg tablet 25 mg PO 4X/DAY PRN PRN Dizziness 03/17/16 [History Last Taken Unknown] epinephrine 0.3 mg/0.3 mL injection, auto-injector 0.3 mg (0.3 mL) IM Q15M PRN anaphylaxis #2 ea 10/07/20 [Rx Last Taken Unknown] albuterol sulfate 90 mcg/actuation aerosol inhaler 2 puff inhalation Q6H PRN PRN Shortness Of Breath 08/04/21 [History Last Taken Unknown] gabapentin 400 mg capsule 400 mg PO TID nerve pain 08/04/21 [History Last Taken Unknown] insulin aspart U-100 100 unit/mL (3 mL) subcutaneous pen (Novolog FlexPen U-100 Insulin aspart) 20 - 25 sliding scale dose subcut BID diabetes 08/04/21 [History Last Taken Unknown] levocetirizine 5 mg tablet 5 mg PO QHS sleep 08/04/21 [History Last Taken Unknown] valsartan 160 mg tablet 160 mg PO DAILY blood pressure 08/04/21 [History Last Taken Unknown] amlodipine 5 mg tablet 5 mg PO DAILY 30 days #30 tabs 08/10/21 [Rx Last Taken Unknown] atorvastatin 80 mg tablet 80 mg PO QHS 30 days #30 tabs 08/10/21 [Rx Last Taken Unknown] hydrochlorothiazide 12.5 mg capsule 12.5 mg PO DAILY 30 days #30 caps 08/10/21 [Rx Last Taken Unknown] tiotropium 2.5 mcg-olodaterol 2.5 mcg/actuation mist for inhalation (Stiolto Respimat) 2 puff inhalation DAILY asthma 09/13/21 [History Last Taken Unknown] fluticasone furoate 200 mcg/actuation blister powder for inhalation (Arnuity Ellipta) 1 inh inhalation QDAY #30 ea 05/13/22 [Rx Last Taken Unknown] insulin glargine-yfgn 100 unit/mL (3 mL) subcutaneous pen 50 unit subcut BID 07/11/22 [History Last Taken Unknown] Allergy/AdvReac Type Severity Reaction Status Date / Time bee venom protein (honey bee) Allergy Swelling Verified 07/11/22 14:47 Penicillins Allergy RASH/LONG Verified 07/11/22 14:47 TIME TO WAKE ME UP Family History Mother Lung cancer with associated tobacco use history. Father Heart disease CHF (congestive heart failure) Hypertension Surgical History History of appendectomy Social History household members: spouse Smoking Status: Former smoker how long ago did patient quit smoking: Quit 30-33 years prior, started 1.5 ppd at age 9. alcohol intake: never substance use type: does not use ROS ROS Narrative Pertinent positives and pertinent negatives as noted in HPI. All other systems were reviewed and are negative Vital Signs Vital Signs Vital Signs: 07/11/22 14:45 07/11/22 16:40 07/11/22 16:40 Temperature 98.1 F Temperature Source Temporal Pulse Rate 78 80 Respiratory Rate 18 18 Blood Pressure 171/96 H 142/76 H Blood Pressure Mean 121 98 Pulse Ox 100 97 Oxygen Delivery Method Room Air Room Air Room Air 07/11/22 16:44 07/11/22 18:10 Temperature Temperature Source Pulse Rate 77 83 Respiratory Rate 18 15 Blood Pressure 142/76 H 142/76 H Blood Pressure Mean 98 98 Pulse Ox 97 98 Oxygen Delivery Method Room Air Room Air Weight Weight: 178.307 kg Body Mass Index (BMI) 63.4 Physical Exam Narrative Physical exam: General: Well-nourished, well-developed. Head: Normocephalic, atraumatic, no tenderness Eyes: Vision is grossly intact. EOMI ENT, no trauma, moist mucous membranes, no rhinorrhea Neck: Nontender, No thyromegaly. CVS: Regular rate and rhythm. S1-S2 present. No murmur, gallop or rub. Respiratory : clear to auscultation bilaterally, chest wall nontender Abdomen: Soft, nontender, nondistended, normal bowel sounds, no masses : Deferred Back: Nontender, no CVA tenderness, no midline spinal tenderness, deformities, step-offs Extremities: Nontender full range of motion, no trauma Skin: Normal color, no trauma, abrasions Neuro: Alert, oriented, cranial nerves II through XII grossly intact. Psychiatry: Normal mood. Normal affect. Not depressed. Not anxious. Results Lab / Micro Data Result Diagrams: 07/11/22 17:30 07/11/22 17:30 Labs: Laboratory Results - last 24 hr 07/11/22 15:49: POC Glucose 133 H 07/11/22 17:30: WBC 7.5, RBC 5.32, Hgb 15.1, Hct 46.8, MCV 88.0, MCH 28.4, MCHC 32.3, RDW Std Deviation 42.4, RDW Coeff of Anna 13.2, Plt Count 320, MPV 10.4, Immature Gran % (Auto) 0.500, Neut % (Auto) 72.4 H, Lymph % (Auto) 20.3, [place] % (Auto) 5.2, Eos % (Auto) 0.9, Baso % (Auto) 0.7, Absolute Neuts (auto) 5.5, Absolute Lymphs (auto) 1.53, Nucleated RBC % 0 07/11/22 17:30: PT Cancelled, INR Cancelled, APTT Cancelled 07/11/22 17:30: Sodium 136, Potassium 3.9, Chloride 104, Carbon Dioxide 32.0, Anion Gap 0 L, BUN 13, Creatinine 0.84, Est GFR (MDRD) Af Amer 123, Est GFR (MDRD) Non-Af 101, BUN/Creatinine Ratio 15.4, Glucose 185 H, Calcium 9.4, Troponin I High Sens 8 07/11/22 18:10: PT 13.6, INR 1.1, APTT 26.[address] 07/11/22 16:40 IMPRESSION: Negative Brain CT without contrast. Electronically Signed: Carson Fajardo DO at 18:02 EDT , ADDENDUM: 07/11/22 1827 IMPRESSION: Negative Brain CT without contrast. N.B. : The above Results were Read Back by Carson Fajardo DO to Nelson Omer MD, and understanding confirmed on 07/11/2022 18:20:12 (ET). Electronically Signed: Carson Fajardo DO at 18:02 EDT , Head/Neck CTA 07/11/22 16:41 IMPRESSION: Approximately 50% luminal narrowing at the cavernous portion of the right internal carotid artery. No aneurysm or dissection. N.B. : The above Results were Read Back by Carson Fajardo DO to NELSON OMER and understanding confirmed on 07/11/2022 18:20:18 (ET). Electronically Signed: Carson Fajardo DO at 18:21 EDT , ADDENDUM: 07/11/22 1828 IMPRESSION: Approximately 50% luminal narrowing at the cavernous portion of the right internal carotid artery. No aneurysm or dissection. N.B. : The above Results were Read Back by Carson Fajardo DO to NELSON OMER and understanding confirmed on 07/11/2022 18:20:18 (ET). Electronically Signed: Carson Fajardo DO at 18:21 EDT , Chest X-Ray 07/11/22 17:36 IMPRESSION: No radiographic evidence of acute cardiopulmonary disease. Electronically Signed: Carson FajardoDO at 18:45 EDT , Assessment & Plan Assessment/Plan (1) Brain TIA: (2) Numbness and tingling: (3) Morbid obesity: (4) History of diabetes mellitus, type II: (5) Essential hypertension: PLAN: Plan Numbness and tingling the right side NIH at the emergency department was 0, patient was not a candidate of tPA. Serial NINDS NIH Scale ordered Impression of head CT by radiology: Negative brain CT without count Upon my personal head CT image review: I agree with radiologist interpretation Head/neck CTA with approximately 50% luminal narrowing at the cavernous portion of the right internal carotid artery per radiologist interpretation. This does not explain patient's symptoms. Lipid profile and A1c ordered. Physical therapy to evaluate patient. N.p.o. until bedside swallow eval. Daily aspirin. Home statin continued Permissive hypertension. Control blood pressure with labetalol for systolic blood pressure of more than 220 or diastolic blood pressure of more than 120. MRI of brain ordered Echocardiogram ordered. Home gabapentin continued Hypertension Blood pressure is not within goal Home blood pressure held secondary to permissive hypertension. Trend blood pressure Diabetes mellitus Patient with hyperglycemia on presentation Monitor Accu-Cheks Correction scale insulin ordered. Morbid Obesity: BMI: 57.2 kg/m?. Complicates care. Lifestyle modification recommended. DVT prophylaxis: SCDs ordered Charges/Coding Visit Charges Inpatient E&M: 76673 Init Hosp L3
[2022-07-11 20:07] VITALS: BP 163/89; PULSE 84; RESP 18; TEMP 36.7; O2SAT 94
--- NOTE | 2022-07-11 20:50 | ECHOCS_ITS ---
Reason For Study: TIA/CVA Procedure This was a 2D Doppler, Color Flow transthoracic echocardiogram. The study was technically difficult. Due to morbid obesity. Contrast injection was performed. Exam performed portable in patient room. Left Ventricle Normal LV size. The estimated ejection fraction is 65 %. Unable to assess diastolic dysfunction. No regional wall motion abnormalities noted. Right Ventricle Normal RV size. Normal systolic function. Atria Normal left atrium. Normal right atrium. No doppler evidence for ASD. Mitral Valve There is moderate mitral annular calcification. There is no mitral valve stenosis. No mitral valve insufficiency. Tricuspid Valve There is no tricuspid stenosis. Trivial tricuspid valve insufficiency. Unable to estimate RV systolic pressure due to insufficient tricuspid regurgitant envelope. Aortic Valve Trisinus/trileaflet aortic valve. There is no aortic stenosis. No aortic valve insufficiency. Pulmonic Valve There is no pulmonic valvular stenosis. No pulmonic valve insufficiency. Great Vessels Normal aortic root. Pericardium/Pleural No pericardial effusion. Medication Diluted definity 4.0ml given slow IV push to enhance endocardial definition. Performed a rapid injection of agitated mix of 9 cc saline and 1cc air to assess for atrial septal defect. MMode/2D Measurements & Calculations LVIDd: 5.6 cm IVSd: 1.2 cm Ao root diam: 3.5 cm LVIDs: 3.6 cm LVPWd: 1.5 cm FS: 35.9 % LAV(MOD-bp): 86.8 ml LA A4 area: 26.2 cm2 LA dimension(2D): 4.8 cm LAV(MOD-bp) Indexed: 34.1 ml/m2 LAV(MOD-sp2): 86.7 ml LAV(MOD-sp4): 86.6 ml RA A4 area: 16.4 cm2 Time Measurements MV dec time: 0.23 sec Doppler Measurements & Calculations MV E max jl: 76.3 cm/sec Lat Peak E' Jl: 8.6 cm/sec Med Peak E' Jl: 11.1 cm/sec MV A max jl: 82.3 cm/sec E/E' lat: 8.8 E/E' med: 6.8 MV E/A: 0.93 MV dec slope: 346.1 cm/sec2 Ao V2 max: 119.9 cm/sec LV V1 max: 101.5 cm/sec Ao max P.8 mmHg LV V1 max P.1 mmHg Ao V2 mean: 81.6 cm/sec LV V1 mean P.2 mmHg Ao mean P.1 mmHg LV V1 mean: 71.3 cm/sec Ao V2 VTI: 25.5 cm LV V1 VTI: 20.9 cm AV (velocity ratio): 0.82 PA V2 max: 85.4 cm/sec TR max jl: 223.5 cm/sec TR max P.0 mmHg ECHO/Echo Complete W/ Contrast Interpretation Summary The estimated ejection fraction is 65 %. Unable to assess diastolic dysfunction. Ordering Physician: Ravin Cristina Referring Physician: Pasha Cummins Performed By: Mercedes Zavala RDCS, RVT
[2022-07-11 20:52] VITALS: BMI 57.2
[2022-07-11 21:00] VITALS: BP 143/77; PULSE 86; RESP 18; TEMP 36.8; O2SAT 96
[2022-07-11] MEDS: Insulin Lispro 100 UNIT/ML INSULN.PEN SC (21:35)
[2022-07-11 23:30] LABS: Bedside Glucose 182 mg/dL (74-106)
[2022-07-11 23:43] VITALS: BMI 57.2
[2022-07-12] VITALS (11 sets, daily range): BP systolic 147–178; BP diastolic 75–101; PULSE 65–93; RESP 14–19; TEMP 36.2–36.4; O2SAT 95–98; BMI 57.2
[2022-07-12] MEDS: Insulin Lispro 100 UNIT/ML INSULN.PEN SC ×3 (06:31→16:33)
[2022-07-12 06:35] LABS: Absolute Lymphocyte Count 1.47 X10^3/uL (0.83-4.51); Basophil# 0.05 X10^3/uL; Basophil% 0.7 % (0-1); Eosinophil# 0.08 X10^3/uL; Eosinophils% 1.1 % (0-5); Hematocrit 45.5 % (40-54); Hemoglobin 14.4 g/dL (13.0-16.5); Lymphocyte # 1.47 X10^3/ul (0.83-4.51); Lymphocyte % 20.6 % (19-41); Mean Corp Hgb Conc 31.6 g/dL (32-36); Mean Corpuscular Hgb 28.1 pg (27.0-32.0); Mean Corpuscular Volume 88.9 fL (80-94); Monocyte# 0.49 X10^3/uL; Monocyte% 6.9 % (0-10); NRBC Flagged by Analyzer 0 % (0-5); Neutrophil # 5.01 X10^3/uL (2.7-7.7); Neutrophil % 70.3 % (47-70); Platelet Count 300 K/mm3 (150-450); RBC Distribution Width CV 13.2 % (11.6-14.6); RBC Distribution Width SD 43.1 fl (35.1-43.9); Red Blood Count 5.12 M/mm3 (4.6-6.2); White Blood Count 7.1 K/mm3 (4.4-11.0)
[2022-07-12 07:01] LABS: AST(SGOT) 16 U/L (15-37); Alanine Aminotransfer ALT/SGPT 32 U/L (16-61); Albumin, Serum 3.3 g/dL (3.2-5.0); Alkaline Phosphatase 90 U/L (45-117); Anion Gap 3 (5-15); BUN 12 mg/dL (7-18); BUN/Creat Ratio 15.3 RATIO (10-20); Calcium,Total 8.7 mg/dL (8.5-10.1); Chloride 105 mmol/L (98-107); Cholesterol 181 mg/dL (200); Creatinine, Serum 0.78 mg/dL (0.70-1.30); EST Glomerular Filtration Rate 110 mL/min (>60); Est Glom Filt Rate - Afr Amer 134 mL/min (>60); Estimated Creatinine Clearance 99.97 ml/min; Globulin 3.3 g/dL (2.2-4.2); Glucose 204 mg/dL (74-106); High Density Lipoprotein 40 mg/dL; Protein, Total 6.6 g/dL (6.4-8.2); Sodium Level 135 mmol/L (136-145); Triglycerides 105 mg/dL; Very Low Density Lipoprotein 21 mg/dL (5-40)
[2022-07-12 07:11] LABS: Bedside Glucose 200 mg/dL (74-106)
--- NOTE | 2022-07-12 07:43 | TELEMED_ITS ---
[facility] has confirmed receipt of a request for visit. This document confirms receipt of the order initiating the consult. To find the results of the consultation, please view the patient's reports for the scanned Telemed Consult.
[2022-07-12] MEDS: Aspirin 81 MG TAB.CHEW PO (07:52)
[2022-07-12 07:53] LABS: Hemoglobin A1c 9.3 % (3.8-5.6)
--- NOTE | 2022-07-12 11:20 | CASEMGMT ---
ANAHY PERALES called son for initial transition planning/care coordination assessment, as patient is confused. ANAHY PERALES introduced self and role at [facility]. Son Jitendra willing to participate in assessment and is able to answer all questions appropriately. Care providers, pharmacy, and demographics verified. Son wishes for patient to discharge to TCU for additional therapy. ANAHY PERALES updated SW. Son states he has no further needs or concerns at this time. CM to follow for discharge planning needs that may arise. PCP: Marciano Specialists: none [facility] [employer] [employer] Prescription Benefit: son believes she does Living Will/HPOA: yes, gume Willson LNOK: son, daughter Living Arrangements: Patient lives alone in a single story home with 1 step to enter. Patient is normally independent at home. Transportation: self, son, daughter, nephew DME/HHC: Patient has shower chair, cane, walker, and grab bars. Patient has had [facility] in the past. Patient has been to TCU previously Disposition Plan: TCU pending acceptance. Doris HERNÁNDEZ, RN, CM
[2022-07-12 12:11] LABS: Bedside Glucose 277 mg/dL (74-106)
[2022-07-12] MEDS: LORazepam 2 MG/ML Syringe 1 MG IV (12:22)
[2022-07-12] MEDS: 0.9% Saline Lock 10 ML Syringe IV (12:22)
--- NOTE | 2022-07-12 12:41 | NURSING ---
Pt attempted to get into MRI machine, pt too broad and does not fit into machine well enough to be comfortable for scan. Pt c/o left arm pain immediately upon entering the MRI machine. 2 attempts made and pt unable to tolerate the tight fit.
--- NOTE | 2022-07-12 16:09 | DS.PCM_ITS ---
Providers Date of Admission: 07/11/22 Date of Discharge: 07/12/22 Primary Care Physician: Pasha Cummins, PRISCILLA-C Reason For Visit: NUMBNESS & TINGLING Diagnosis Discharge Diagnosis (1) Brain TIA: Status: Acute Code(s): G45.9 - Transient cerebral ischemic attack, unspecified (2) Numbness and tingling: Status: Acute Code(s): R20.0 - Anesthesia of skin; R20.2 - Paresthesia of skin (3) Morbid obesity: Status: Acute Code(s): E66.01 - Morbid (severe) obesity due to excess calories (4) History of diabetes mellitus, type II: Status: Acute Code(s): Z86.39 - Personal history of other endocrine, nutritional and metabolic disease (5) Essential hypertension: Status: Chronic Code(s): I10 - Essential (primary) hypertension Medications at Discharge Home Medications meclizine 25 mg tablet 25 mg PO 4X/DAY PRN PRN Dizziness 03/17/16 epinephrine 0.3 mg/0.3 mL injection, auto-injector 0.3 mg (0.3 mL) IM Q15M PRN anaphylaxis #2 ea 10/07/20 albuterol sulfate 90 mcg/actuation aerosol inhaler 2 puff inhalation Q6H PRN PRN Shortness Of Breath 08/04/21 gabapentin 400 mg capsule 400 mg PO TID nerve pain 08/04/21 insulin aspart U-100 100 unit/mL (3 mL) subcutaneous pen (Novolog FlexPen U-100 Insulin aspart) 20 - 25 sliding scale dose subcut BID diabetes 08/04/21 levocetirizine 5 mg tablet 5 mg PO QHS sleep 08/04/21 valsartan 160 mg tablet 160 mg PO DAILY blood pressure 08/04/21 amlodipine 5 mg tablet 5 mg PO DAILY 30 days #30 tabs 08/10/21 atorvastatin 80 mg tablet 80 mg PO QHS 30 days #30 tabs 08/10/21 hydrochlorothiazide 12.5 mg capsule 12.5 mg PO DAILY 30 days #30 caps 08/10/21 tiotropium 2.5 mcg-olodaterol 2.5 mcg/actuation mist for inhalation (Stiolto Respimat) 2 puff inhalation DAILY asthma 09/13/21 fluticasone furoate 200 mcg/actuation blister powder for inhalation (Arnuity Ellipta) 1 inh inhalation QDAY #30 ea 05/13/22 insulin glargine-yfgn 100 unit/mL (3 mL) subcutaneous pen 50 unit subcut BID 07/11/22 aspirin 81 mg chewable tablet 81 mg PO BREAKFAST #0 tabs 07/12/22 atorvastatin 80 mg tablet 80 mg PO QHS #30 tabs 07/12/22 clopidogrel 75 mg tablet (Plavix) 75 mg PO DAILY #21 tabs 07/12/22 Hospital Course Operations None Procedures 2-D Echocardiogram, EKG and - (CT of the brain/CTA of the head and neck/chest x- ray) Summary of Care Provided Minutes Spent on Discharge: 38 Hospital Course: Mr. Velasco is a 51-year-old morbidly obese white male who presented to the emergency department yesterday afternoon with complaints of tingling and numbnes s in his right foot, leg and right arm/hand. It is started approximately 9 or 9:30 in the morning of presentation and he thought that the initial symptom was related to his MAGDA hose being on too tight. He removed these and thinks it may have gotten some better but not completely sure if that was the cause of improving. Shortly following that he had tingling in his hand. His symptoms were not really above the ankle or the wrist. They did appear to occur at the same time but had no associated headache, speech or vision changes, balance changes or weakness in those extremities. He had an episode of this approximately 4 months ago that resolved and he was never seen for it. He has never had a previous stroke or TIA. He does have a history of hypertension, diabetes and hyperlipidemia. He also had episode earlier that day where he had almost presyncopal sensation and this has been happening on and off. He had not been taking his antihypertensive for few days prior to admission because he felt his blood pressure may be better. Initial CT of the brain was unremarkable. CTA of the head and neck showed approximately 50% luminal narrowing of the cavernous portion of the right internal carotid artery with no aneurysm or dissection and otherwise was unremarkable. He was admitted to the medical floor for work-up for TIA. Echocardiogram was performed and showed an EF of 65% with no valvular abnormalities and no ASD was identified. Diastolic dysfunction was unable to be assessed based on poor quality of the study secondary to body habitus. Unfortunately, the patient was too broad to fit into our MRI. His antihypertensives were initially held to allow for some permissive hypertension with a concern for stroke/TIA. His blood pressure was markedly elevated so these were restarted. Cholesterol was obtained and he was found to have a total cholesterol of 181 with an LDL of 120 and an HDL of 40. Triglycerides were 105. We did start him on 80 mg of atorvastatin as his ideal LDL would be less than 70 and with concern for TIA pleiotropic effects are noted at high dosing. He was maintained on aspirin and Plavix was added. Neurology evaluated the patient and recommended we continue this for 21 days and then transition back to aspirin alone. I have recommended outpatient follow-up with vascular to keep an eye on his carotid stenosis. Neurology referral was made and neurology did recommend an outpatient open MRI of the brain and possible cervical spine if able to obtain after discharge. We have ordered a 30 event monitor with concerns for possible TIA as well as concern for presyncopal events. This will be delivered to his house in the next 2 to 3 days and he was made aware of this and we did discuss the reason for this. Patient voiced understanding. His hemoglobin A1c was found to be 9.3. I have recommended he follow-up with his outpatient physic jarrod as he did feel that his blood sugars were improving for any adjustment in his insulin. Strict control would be beneficial with the above concerns and his overall medical issues. He was able to be discharged home in stable condition. Prescriptions were sent to his pharmacy for his new medications. 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 Appears comfortable General Appearance: cooperative, comfortable, well kempt and well developed Orientation / Consciousness: awake, oriented to person, oriented to place and oriented to time Exam Limitations: no limitations Nutritional Appearance: morbidly obese HEENT normocephalic, head/scalp atraumatic, hearing grossly normal bilaterally and moist oral mucous membranes HEENT Narrative: Mallampati 3-4, dentition is fair for age, no thrush Eyes PERRL, EOMs intact bilaterally and conjunctivae normal Eyes Narrative: No scleral icterus Neck no lymphadenopathy, supple and no JVD Neck Narrative: Trachea midline, no thyroid enlargement, neck is short and thick Resp normal respiratory effort, no retractions, no use of accessory muscles and clear to auscultation bilaterally Auscultation: Negative for rales, rhonchi or wheezes Cardio regular rate, regular rhythm, S1 normal heart sound, S2 normal heart sound, no murmurs, no rub and no gallops Cardio Narrative: Distant secondary to body habitus GI normal to inspection, nondistended, normoactive bowel sounds, soft to palpation and non-tender Extremity Extremity Narrative: Trace bilateral lower extremity venous stasis edema, no cyanosis or clubbing Skin no rashes or lesions noted, no wounds, skin turgor normal and no jaundice Skin Narrative: Bilateral lower extremity skin changes consistent with chronic venous stasis Neuro oriented x3, CN's II-XII intact bilaterally, moves all extremities, no focal motor deficits and no sensory deficits noted Sensorium / Orientation: awake, alert, oriented to person, oriented to place and oriented to time Coordination / Balance: coxf-kb-ceeu test normal Speech: speech normal Motor Exam: strength 5/5 throughout Psych affect normal Psych Narrative: Pleasant and appropriately interactive Weight / BMI Weight Weight: 160.8 kg Body Mass Index (BMI) 57.2 ABG / Lab / Microbiology Data Result Diagrams: 07/12/22 05:28 07/12/22 05:28 Laboratory: Laboratory Results - last 24 hr 07/11/22 15:49: POC Glucose 133 H 07/11/22 17:30: WBC 7.5, RBC 5.32, Hgb 15.1, Hct 46.8, MCV 88.0, MCH 28.4, MCHC 32.3, RDW Std Deviation 42.4, RDW Coeff of Anna 13.2, Plt Count 320, MPV 10.4, Immature Gran % (Auto) 0.500, Neut % (Auto) 72.4 H, Lymph % (Auto) 20.3, [place] % (Auto) 5.2, Eos % (Auto) 0.9, Baso % (Auto) 0.7, Absolute Neuts (auto) 5.5, Absolute Lymphs (auto) 1.53, Nucleated RBC % 0 07/11/22 17:30: PT Cancelled, INR Cancelled, APTT Cancelled 07/11/22 17:30: Sodium 136, Potassium 3.9, Chloride 104, Carbon Dioxide 32.0, Anion Gap 0 L, BUN 13, Creatinine 0.84, Est GFR (MDRD) Af Amer 123, Est GFR (MDRD) Non-Af 101, BUN/Creatinine Ratio 15.4, Glucose 185 H, Calcium 9.4, Troponin I High Sens 8 07/11/22 18:10: PT 13.6, INR 1.1, APTT 26.8 07/11/22 21:21: POC Glucose 182 H 07/12/22 05:28: WBC 7.1, RBC 5.12, Hgb 14.4, Hct 45.5, MCV 88.9, MCH 28.1, MCHC 31.6 L, RDW Std Deviation 43.1, RDW Coeff of Anna 13.2, Plt Count 300, MPV 11.0, Immature Gran % (Auto) 0.400, Neut % (Auto) 70.3 H, Lymph % (Auto) 20.6, [place] % (Auto) 6.9, Eos % (Auto) 1.1, Baso % (Auto) 0.7, Absolute Neuts (auto) 5.0, Absolute Lymphs (auto) 1.47, Nucleated RBC % 0 07/12/22 05:28: Sodium 135 L, Potassium 4.0, Chloride 105, Carbon Dioxide 27.0, Anion Gap 3 L, BUN 12, Creatinine 0.78, Estim Creat Clear Calc 99.97, Est GFR (MDRD) Af Amer 134, Est GFR (MDRD) Non-Af 110, BUN/Creatinine Ratio 15.3, Glucose 204 H, Calcium 8.7, Total Bilirubin 1.80 H, AST 16, ALT 32, Alkaline Phosphatase 90, Total Protein 6.6, Albumin 3.3, Globulin 3.3, Albumin/Globulin Ratio 1.0, Triglycerides 105, Cholesterol 181, LDL Cholesterol 120, VLDL Cholesterol 21, HDL Cholesterol 40 07/12/22 05:28: Hemoglobin A1c 9.3 H 07/12/22 06:30: POC Glucose 200 H 07/12/22 11:51: POC Glucose 277 H Radiography Diagnostic Testing: Radiology Impression Brain CT 07/11/22 16:40 IMPRESSION: Negative Brain CT without contrast. Electronically Signed: Carson Fajardo DO at 18:02 EDT , ADDENDUM: 07/11/22 1827 IMPRESSION: Negative Brain CT without contrast. N.B. : The above Results were Read Back by Carson Fajardo DO to Nelson Omer MD, and understanding confirmed on 07/11/2022 18:20:12 (ET). Electronically Signed: Carson Fajardo DO at 18:02 EDT , Head/Neck CTA 07/11/22 16:41 IMPRESSION: Approximately 50% luminal narrowing at the cavernous portion of the right internal carotid artery. No aneurysm or dissection. N.B. : The above Results were Read Back by Carson Fajardo DO to NELSON OMER and understanding confirmed on 07/11/2022 18:20:18 (ET). Electronically Signed: Carson Fajardo DO at 18:21 EDT , ADDENDUM: 07/11/22 1828 IMPRESSION: Approximately 50% luminal narrowing at the cavernous portion of the right internal carotid artery. No aneurysm or dissection. N.B. : The above Results were Read Back by Carson Fajardo DO to NELSON OMER and understanding confirmed on 07/11/2022 18:20:18 (ET). Electronically Signed: Carson Fajardo DO at 18:21 EDT , Chest X-Ray 07/11/22 17:36 IMPRESSION: No radiographic evidence of acute cardiopulmonary disease. Electronically Signed: Carson Fajardo DO at 18:45 EDT , Echocardiogram 07/11/22 20:50 Interpretation Summary The estimated ejection fraction is 65 %. Unable to assess diastolic dysfunction. Ordering Physician: Ravin Cristina Referring Physician: Pasha Cummins Performed By: Mercedes Zavala, LOTUS, RVT D/C Instructions Discharge Diet: Low fat / Low cholesterol and 1800 Calorie Control Diet Discharge Activity: Return to Normal Activity Return to work on: 07/13/22 May resume sexual activity in: No Restrictions Meaningful Use Info Meaningful Use Diagnoses (Choose all that apply): None applicable Discharge Plan Admission Admit Date/Time: 07/11/22 19:21 Primary Reason for Your Visit: R UE/LE tingling and numbness Attending Provider: Aspen Celis Primary Care Provider: Pasha Cummins OCC THERAPIST Consulting Providers: Ravin Cristina Discharge Orders/Prescriptions Prescriptions: New aspirin 81 mg Tablet,Chewable 81 mg PO BREAKFAST Qty: 0 0RF atorvastatin 80 mg Tablet 80 mg PO QHS Qty: 30 0RF clopidogrel [Plavix] 75 mg tablet 75 mg PO DAILY Qty: 21 0RF Continued Stiolto Respimat 2.5-2.5 mcg/actuation mist 2 puff inhalation DAILY meclizine 25 MG tablet 25 mg PO 4X/DAY PRN PRN (Reason: Dizziness) epinephrine 0.3 mg/0.3 mL auto-injector 0.3 mg IM Q15M PRN (Reason: anaphylaxis) Qty: 2 0RF Rx Instructions: for 2 doses gabapentin 400 mg capsule 400 mg PO TID albuterol sulfate 90 mcg/actuation HFA aerosol inhaler 2 puff INHALATION Q6H PRN PRN (Reason: Shortness Of Breath) valsartan 160 mg tablet 160 mg PO DAILY Label Comments: DOSE CHANGE TAKE 1 TABLET ONCE DAILY FOR 90 DAYS insulin aspart U-100 [Novolog FlexPen U-100 Insulin] 100 unit/mL (3 mL) insulin pen 20 - 25 sliding scale dose SUBCUT BID levocetirizine 5 mg tablet 5 mg PO QHS atorvastatin 80 mg Tablet 80 mg PO QHS 30 Days Qty: 30 0RF amlodipine 5 mg Tablet 5 mg PO DAILY 30 Days Qty: 30 0RF hydrochlorothiazide 12.5 mg Capsule 12.5 mg PO DAILY 30 Days Qty: 30 0RF insulin glargine-yfgn 100 unit/mL (3 mL) insulin pen 50 unit subcut BID Arnuity Ellipta 200 mcg/actuation blister with device 1 inh inhalation QDAY Qty: 30 11RF Rx Instructions: administer at approximately the same time(s) each day Other Ambulatory Orders: 30 Day Event Recorder Preventi (Urgent) Timeframe: 1 Day Facility: [facility] - Location: Cardiovascular Services Ordered By: Dr. Aspen Celis Referrals / Follow Up: Nelson Gamino MD [Med Staff - Active Staff] - Within 1 Month (for carotid artery stenosis) Albert Melgoza MD [Non-Staff -Ordering Privileges] - Within 1 Month (TIA vs Myelopathy) Pasha Cummins OCC THERAPIST, OCC THERAPIST-C [Primary Care Provider] - Within 1 Week Disposition Disposition (needs filled in before D/C Order can be placed): Home, Self Care Charges/Coding Visit Charges Inpatient E&M: 99203 Disch Hosp >30min
[2022-07-12 16:16] LABS: Bedside Glucose 277 mg/dL (74-106)
== END 2022-07-12 17:36 | disposition home or self-care (01) ==
LOC: ED 19:23 → PCU 19:48
PROVIDERS: Admitting Provider Hospitalist; Emergency Provider Emergency Medicine; PCP Nurse Practitioner Family; Visit Provider Internal Medicine
DX: R20.0 Anesthesia of skin (principal); E11.65 Type 2 diabetes mellitus with hyperglycemia; E66.01 Morbid (severe) obesity due to excess calories; Z68.43 Body mass index [BMI] 50.0-59.9, adult; Z79.4 Long term (current) use of insulin; K21.9 Gastro-esophageal reflux disease without esophagitis; R20.2 Paresthesia of skin; G47.33 Obstructive sleep apnea (adult) (pediatric); E78.00 Pure hypercholesterolemia, unspecified; Z87.891 Personal history of nicotine dependence; Z79.899 Other long term (current) drug therapy; I07.1 Rheumatic tricuspid insufficiency
CPT/HCPCS: 36415; 70450; 70496; 70498; 71045; 80048; 80053; 80061; 82962; 83036; 84484; 85025; 85610; 85730; 93005; 93306; 94002; 94762; 96374; 97802; 99221; 99284; Q9957; Q9967; A4216; C8929; G0378

== ENCOUNTER → 2022-07-16 | Outpatient (CLI) | payer MEDICARE, SELFPAY ==
[2022-07-16 08:13] LABS: Hemoglobin A1c 9.5 % (3.8-5.6)
[2022-07-16 08:14] LABS: Hematocrit 44.3 % (40-54); Hemoglobin 14.2 g/dL (13.0-16.5); Mean Corp Hgb Conc 32.1 g/dL (32-36); Mean Corpuscular Volume 87.4 fL (80-94); Mean Platelet Vol. 11.4 fl (6.2-12.0); Platelet Count 308 K/mm3 (150-450); RBC Distribution Width CV 13.3 % (11.6-14.6); RBC Distribution Width SD 42.5 fl (35.1-43.9); Red Blood Count 5.07 M/mm3 (4.6-6.2); White Blood Count 7.2 K/mm3 (4.4-11.0)
[2022-07-16 08:18] LABS: ALB/GLOB Ratio 1.1 RATIO (0.9-2.4); AST(SGOT) 20 U/L (15-37); Alanine Aminotransfer ALT/SGPT 31 U/L (16-61); Albumin, Serum 3.6 g/dL (3.2-5.0); Alkaline Phosphatase 98 U/L (45-117); Anion Gap 5 (5-15); BUN 18 mg/dL (7-18); BUN/Creat Ratio 21.5 RATIO (10-20); Calcium,Total 8.7 mg/dL (8.5-10.1); Chloride 104 mmol/L (98-107); Cholesterol 181 mg/dL (200); Creatinine, Serum 0.84 mg/dL (0.70-1.30); EST Glomerular Filtration Rate 102 mL/min (>60); Est Glom Filt Rate - Afr Amer 123 mL/min (>60); Globulin 3.2 g/dL (2.2-4.2); Glucose 199 mg/dL (74-106); High Density Lipoprotein 41 mg/dL; Iron 101 ug/dL (65-175); Iron Binding Capacity,Total 269 ug/dL (250-450); PSA,Total - Annual Screen 0.78 ng/mL (0.00-4.00); Potassium 3.9 mmol/L (3.5-5.1); Protein, Total 6.8 g/dL (6.4-8.2); Sodium Level 138 mmol/L (136-145); Triglycerides 93 mg/dL; Very Low Density Lipoprotein 19 mg/dL (5-40)
[2022-07-18 08:19] LABS: Vitamin D,25 Hydroxy 65.5 ng/mL
== END | disposition home or self-care (01) ==
LOC: LAB 07:04
PROVIDERS: PCP Nurse Practitioner Family; Referring Provider Nurse Practitioner Family; Visit Provider Nurse Practitioner Family
DX: E11.9 Type 2 diabetes mellitus without complications (principal); E66.01 Morbid (severe) obesity due to excess calories; Z68.43 Body mass index [BMI] 50.0-59.9, adult; D50.9 Iron deficiency anemia, unspecified; E78.5 Hyperlipidemia, unspecified; I10 Essential (primary) hypertension; E55.9 Vitamin D deficiency, unspecified; Z12.5 Encounter for screening for malignant neoplasm of prostate
CPT/HCPCS: 36415; 80053; 80061; 82306; 83036; 83540; 83550; 84153; 85027; G0103

== ENCOUNTER → 2022-07-27 | Outpatient (CLI) | payer MEDICARE, SELFPAY ==
--- NOTE | 2022-07-27 13:03 | CDU_ITS ---
Reason For Study: Stenosis Rt. Velocities/BP Lt. Velocities/BP Prox CCA 66.4/8.8 cm/sec. Prox CCA 94.4/13.4 cm/sec. Mid CCA 51.3/8.8 cm/sec. Mid CCA 69.8/12.2 cm/sec. Dist CCA 48.5/10.7 cm/sec. Dist CCA 72.3/13.4 cm/sec. Prox ICA 53.1/11.3 cm/sec. Prox ICA 79.7/17.1 cm/sec. Mid ICA 79.6/20.1 cm/sec. Mid ICA 58.8/19.5 cm/sec. Dist ICA 90.0/23.0 cm/sec. Dist ICA 51.7/18.8 cm/sec. Rt. ICA/CCA = 1.8. Lt. ICA/CCA = 1.1. Prox ECA 155.8/18.8 cm/sec. Prox ECA 89.4/11.9 cm/sec. Rt. Vert. 39.2/6.9 cm/sec. Lt. Vert. 34.1/11.3 cm/sec. Right Extracranial There is heterogeneous, irregular atherosclerotic plaque noted in the right common carotid artery. There is heterogeneous, irregular atherosclerotic plaque noted in the right internal carotid artery. There is heterogeneous, irregular atherosclerotic plaque noted in the right external carotid artery. Antegrade flow is noted in the right vertebral artery. Left Extracranial There is intimal thickening but no significant atherosclerotic plaque noted in the left common carotid artery. There is heterogeneous, irregular atherosclerotic plaque noted in the left internal carotid artery. There is heterogeneous, irregular atherosclerotic plaque noted in the left external carotid artery. Antegrade flow is noted in the left vertebral artery. Procedure Carotid Duplex [id number]. This is a Carotid Duplex examination using B-mode, color flow and specral Doppler. The exam was of poor technical quality due to heavy breathing and body habitus.. Exam performed in department. VL/Carotid Duplex Ultrasound Interpretation Summary Mild (<50%) stenosis right extracranial internal carotid. Mild (<50%) stenosis left extracranial internal carotid. Patent and antegrade vertebrals bilaterally. Ordering Physician: Noelle Eli Referring Physician: Pasha Cummins Performed By: Fabiano Willson RVT
== END | disposition home or self-care (01) ==
PROVIDERS: PCP Nurse Practitioner Family; Referring Provider Physician Assistant; Visit Provider Physician Assistant
DX: I65.23 Occlusion and stenosis of bilateral carotid arteries (principal); Z86.73 Personal history of transient ischemic attack (TIA), and cerebral infarction without residual deficits
CPT/HCPCS: 93880

== ENCOUNTER 2022-07-30 11:08 | Emergency (ER) | payer MEDICARE, SELFPAY ==
[2022-07-30 11:10] VITALS: BP 149/75; PULSE 78; RESP 18; TEMP 36.6; O2SAT 97
--- NOTE | 2022-07-30 12:02 | EX.ED.DYSGE1 ---
HPI History of Present Illness Chief Complaint: General Illness Informant: patient Narrative Narrative: Presents with sudden onset of tremors fatigue with concerning low glucose. He is a diabetic on weekly injections, 50 of Lantus twice daily and sliding scale for which he took 20 units this morning before breakfast. He states he ate less cereal than normal. He was at a soccer game when he felt symptoms he had coffee with sugar he drank a little bit elevated, EMS came and found his sugars to be 170s he was starting to feel better. He came by private vehicle for evaluation. No urinary symptoms no recent vomiting or diarrhea. No cough. Reports approximately week ago was admitted for TIA with numbness to the right arm and leg. Due to his girth, he was unable to go into an MRI to have event monitor placed since then. [facility] Medical History Acute respiratory failure with hypoxia Anaphylactic reaction to bee sting BiPAP (biphasic positive airway pressure) dependence Diabetes mellitus, type 2 Essential hypertension Former tobacco use GERD (gastroesophageal reflux disease) History of diabetes mellitus, type II History of hypertension Hx of hypercholesterolemia Hyperlipidemia Hypoxia Morbid obesity Morbid obesity MRSA bacteremia Obstructive sleep apnea NICHOLE treated with BiPAP Staphylococcal pneumonia Home Medications meclizine 25 mg tablet 25 mg PO 4X/DAY PRN PRN Dizziness 03/17/16 [History Last Taken Unknown] epinephrine 0.3 mg/0.3 mL injection, auto-injector 0.3 mg (0.3 mL) IM Q15M PRN anaphylaxis #2 ea 10/07/20 [Rx Last Taken Unknown] albuterol sulfate 90 mcg/actuation aerosol inhaler 2 puff inhalation Q6H PRN PRN Shortness Of Breath 08/04/21 [History Last Taken Unknown] gabapentin 400 mg capsule 400 mg PO TID nerve pain 08/04/21 [History Last Taken Unknown] insulin aspart U-100 100 unit/mL (3 mL) subcutaneous pen (Novolog FlexPen U-100 Insulin aspart) 20 - 25 sliding scale dose subcut BID diabetes 08/04/21 [History Last Taken Unknown] levocetirizine 5 mg tablet 5 mg PO QHS sleep 08/04/21 [History Last Taken Unknown] valsartan 160 mg tablet 160 mg PO DAILY blood pressure 08/04/21 [History Last Taken Unknown] amlodipine 5 mg tablet 5 mg PO DAILY 30 days #30 tabs 08/10/21 [Rx Last Taken Unknown] atorvastatin 80 mg tablet 80 mg PO QHS 30 days #30 tabs 08/10/21 [Rx Last Taken Unknown] hydrochlorothiazide 12.5 mg capsule 12.5 mg PO DAILY 30 days #30 caps 08/10/21 [Rx Last Taken Unknown] tiotropium 2.5 mcg-olodaterol 2.5 mcg/actuation mist for inhalation (Stiolto Respimat) 2 puff inhalation DAILY asthma 09/13/21 [History Last Taken Unknown] fluticasone furoate 200 mcg/actuation blister powder for inhalation (Arnuity Ellipta) 1 inh inhalation QDAY #30 ea 05/13/22 [Rx Last Taken Unknown] insulin glargine-yfgn 100 unit/mL (3 mL) subcutaneous pen 50 unit subcut BID 07/11/22 [History Last Taken Unknown] aspirin 81 mg chewable tablet 81 mg PO BREAKFAST #0 tabs 07/12/22 [Rx Last Taken Unknown] atorvastatin 80 mg tablet 80 mg PO QHS #30 tabs 07/12/22 [Rx Last Taken Unknown] clopidogrel 75 mg tablet (Plavix) 75 mg PO DAILY #21 tabs 07/12/22 [Rx Last Taken Unknown] Allergy/AdvReac Type Severity Reaction Status Date / Time bee venom protein (honey bee) Allergy Swelling Verified 07/30/22 11:10 Penicillins Allergy RASH/LONG Verified 07/30/22 11:10 TIME TO WAKE ME UP Family History Mother Lung cancer with associated tobacco use history. Father Heart disease CHF (congestive heart failure) Hypertension Surgical History History of appendectomy Social History household members: spouse Smoking Status: Former smoker how long ago did patient quit smoking: Quit 30-33 years prior, started 1.5 ppd at age 9. alcohol intake: never substance use type: does not use ROS ROS ED Constitutional Constitutional ED: Denies chills, fever(s) or sweats Eyes Eyes: Denies change in vision ENT ENT ED: Denies dysphagia or sore throat Cardiovascular Cardiovascular: Denies chest pain, leg edema, palpitations or racing heartbeat Respiratory/Chest Respiratory/Chest: Denies cough, dyspnea or dyspnea on exertion Gastrointestinal Gastrointestinal: Denies abdominal pain, diarrhea, nausea or vomiting Genitourinary Genitourinary ED: Denies dysuria, hematuria or urinary frequency Musculoskeletal Musculoskeletal: Denies back pain, extremity pain or neck pain Integumentary Denies rash or wounds Neurologic Neurologic: Denies headache(s), paresthesias or weakness EXAM Physical Exam Const Vital Signs: 07/30/22 11:10 07/30/22 12:11 07/30/22 12:05 Temperature 97.8 F Temperature Source Temporal Pulse Rate 78 Respiratory Rate 18 18 Respiratory Effort Normal Respiratory Pattern Normal Blood Pressure 149/75 H Blood Pressure Mean 99 Pulse Ox 97 Oxygen Delivery Method Room Air 07/30/22 12:40 Temperature Temperature Source Pulse Rate 76 Respiratory Rate 18 Respiratory Effort Respiratory Pattern Blood Pressure 120/97 H Blood Pressure Mean 104 Pulse Ox 97 Oxygen Delivery Method Room Air Positive well nourished and well developed General Appearance ED: well developed and NAD HEENT Reports moist mucous membranes normocephalic and atraumatic Eyes PERRL, EOMs intact bilaterally and conjunctivae normal General Eye ED: Yes normal appearance of both eyes Neck no lymphadenopathy and supple General: Negative for tenderness Chest Wall Chest: Negative for tenderness Resp normal respiratory effort and normal air movement Effort and Inspection: symmetric chest movement; Negative for respiratory distress Cardio regular rate, regular rhythm and no murmurs Peripheral Pulses: pulses 2+ throughout GI normal to inspection, nondistended, normoactive bowel sounds and non-tender Palpation: Negative for guarding or rebound tenderness present Back/Spine no CVA tenderness and no thoracic nor lumbar tenderness Extremity normal to inspection General Extremety ED: Negative for edema or tenderness General Extremity: Negative for edema Neuro oriented x3, CN's II-XII intact bilaterally and no sensory deficits noted Sensorium / Orientation: awake and alert Skin no rashes or lesions noted and no wounds MDM MDM MDM Narrative Medical decision making narrative: Interventions / MDM: Differential diagnosis: Hypoglycemic event, history of diabetes, electrolyte abnormalities Diagnosis considered but do not suspect: N/A My EKG interpretation: N/A Imaging independently reviewed and interpreted by myself: N/A External documents reviewed: N/A Test considered but not ordered:N/A ED course: Vital stable clinically back to normal. He drank coffee with sugar prior to able. Glucose 168 fingerstick in the lab was 192. Hemoglobin 13.6 normal. Urine with glucose, however no infection. Re-evaluation: stable, patient ambulated in the department with no return of symptoms. Discussed hypoglycemic event is likely due to taking a smaller meal than normal for breakfast. He will monitor his glucose will eat his meals with his plans insulin. Outpatient follow-up and return precautions. All questions were answered. Disposition discussed with patient/family/significant other: Patient Case discussed with consulting clinician: N/A Lab Data Labs: Laboratory Results - last 24 hr 07/30/22 07/30/22 07/30/22 11:54 12:04 12:04 WBC 6.9 RBC 4.81 Hgb 13.6 Hct 42.8 MCV 89.0 MCH 28.3 MCHC 31.8 L RDW Std Deviation 42.9 RDW Coeff of Anna 13.2 Plt Count 253 MPV 10.5 Immature Gran % (Auto) 0.300 Neut % (Auto) 72.2 H Lymph % (Auto) 19.0 Traverse % (Auto) 6.1 Eos % (Auto) 1.7 Baso % (Auto) 0.7 Absolute Neuts (auto) 5.0 Absolute Lymphs (auto) 1.32 Nucleated RBC % 0 Sodium 140 Potassium 4.1 Chloride 105 Carbon Dioxide 29.0 Anion Gap 6 BUN 12 Creatinine 0.85 Estim Creat Clear Calc 91.74 Est GFR (MDRD) Af Amer 121 Est GFR (MDRD) Non-Af 100 BUN/Creatinine Ratio 14.1 Glucose 192 H Calcium 8.8 Urine Color Urine Clarity Urine pH Ur Specific Savage Urine Protein Urine Glucose (UA) Urine Ketones Urine Occult Blood Urine Nitrite Urine Bilirubin Urine Urobilinogen Ur Leukocyte Esterase Urine RBC Urine WBC Ur Squamous Epith Cells Urine Bacteria Urine Mucus POC Glucose 168 H 07/30/22 12:25 WBC RBC Hgb Hct MCV MCH MCHC RDW Std Deviation RDW Coeff of Anna Plt Count MPV Immature Gran % (Auto) Neut % (Auto) Lymph % (Auto) Traverse % (Auto) Eos % (Auto) Baso % (Auto) Absolute Neuts (auto) Absolute Lymphs (auto) Nucleated RBC % Sodium Potassium Chloride Carbon Dioxide Anion Gap BUN Creatinine Estim Creat Clear Calc Est GFR (MDRD) Af Amer Est GFR (MDRD) Non-Af BUN/Creatinine Ratio Glucose Calcium Urine Color Yellow Urine Clarity Clear Urine pH 6.0 Ur Specific Savage 1.015 Urine Protein Negative Urine Glucose (UA) 250 H Urine Ketones Negative Urine Occult Blood Negative Urine Nitrite Negative Urine Bilirubin Negative Urine Urobilinogen Normal Ur Leukocyte Esterase Negative Urine RBC 0 SEEN Urine WBC 0 SEEN Ur Squamous Epith Cells 0 SEEN Urine Bacteria 0 SEEN Urine Mucus 0 SEEN POC Glucose Discharge Plan Triage Chief Complaint: General Illness ED Provider: Gabino Bella Dx/Rx/DC Orders Clinical Impression: Diabetes mellitus, type 2, Hypoglycemic event in diabetes Instructions: Diabetes: Meal Planning Prescriptions: No Action Stiolto Respimat 2.5-2.5 mcg/actuation mist 2 puff inhalation DAILY meclizine 25 MG tablet 25 mg PO 4X/DAY PRN PRN (Reason: Dizziness) epinephrine 0.3 mg/0.3 mL auto-injector 0.3 mg IM Q15M PRN (Reason: anaphylaxis) Qty: 2 0RF Rx Instructions: for 2 doses gabapentin 400 mg capsule 400 mg PO TID albuterol sulfate 90 mcg/actuation HFA aerosol inhaler 2 puff INHALATION Q6H PRN PRN (Reason: Shortness Of Breath) valsartan 160 mg tablet 160 mg PO DAILY Label Comments: DOSE CHANGE TAKE 1 TABLET ONCE DAILY FOR 90 DAYS insulin aspart U-100 [Novolog FlexPen U-100 Insulin] 100 unit/mL (3 mL) insulin pen 20 - 25 sliding scale dose SUBCUT BID levocetirizine 5 mg tablet 5 mg PO QHS atorvastatin 80 mg Tablet 80 mg PO QHS 30 Days Qty: 30 0RF amlodipine 5 mg Tablet 5 mg PO DAILY 30 Days Qty: 30 0RF hydrochlorothiazide 12.5 mg Capsule 12.5 mg PO DAILY 30 Days Qty: 30 0RF insulin glargine-yfgn 100 unit/mL (3 mL) insulin pen 50 unit subcut BID aspirin 81 mg Tablet,Chewable 81 mg PO BREAKFAST Qty: 0 0RF atorvastatin 80 mg Tablet 80 mg PO QHS Qty: 30 0RF clopidogrel [Plavix] 75 mg tablet 75 mg PO DAILY Qty: 21 0RF Arnuity Ellipta 200 mcg/actuation blister with device 1 inh inhalation QDAY Qty: 30 11RF Rx Instructions: administer at approximately the same time(s) each day Primary Care Provider: Pasha Cummins [employer] Referrals: Pasha Cummins [employer], [employer]-[facility] [Primary Care Provider] - 1-2 Weeks Activity Restrictions/Additional Instructions: History concerning for hypoglycemic event. Labs and urine stable. Glucose 192 in the lab. Make sure you eat your planned meal when you give yourself insulin. Follow-up with your doctor. Return if worsening or recurrent symptoms. Disposition Disposition: Home, Self Care
[2022-07-30 12:05] VITALS: RESP 18
[2022-07-30 12:15] LABS: Bedside Glucose 168 mg/dL (74-106)
[2022-07-30 12:15] LABS: Absolute Lymphocyte Count 1.32 X10^3/uL (0.83-4.51); Basophil# 0.05 X10^3/uL; Basophil% 0.7 % (0-1); Eosinophil# 0.12 X10^3/uL; Eosinophils% 1.7 % (0-5); Hematocrit 42.8 % (40-54); Hemoglobin 13.6 g/dL (13.0-16.5); Lymphocyte # 1.32 X10^3/ul (0.83-4.51); Mean Corp Hgb Conc 31.8 g/dL (32-36); Mean Corpuscular Hgb 28.3 pg (27.0-32.0); Mean Platelet Vol. 10.5 fl (6.2-12.0); Monocyte# 0.42 X10^3/uL; Monocyte% 6.1 % (0-10); NRBC Flagged by Analyzer 0 % (0-5); Neutrophil % 72.2 % (47-70); Platelet Count 253 K/mm3 (150-450); RBC Distribution Width CV 13.2 % (11.6-14.6); RBC Distribution Width SD 42.9 fl (35.1-43.9); Red Blood Count 4.81 M/mm3 (4.6-6.2); White Blood Count 6.9 K/mm3 (4.4-11.0)
[2022-07-30 12:37] VITALS: BMI 63.7
[2022-07-30 12:40] VITALS: BP 120/97; PULSE 76; RESP 18; O2SAT 97
[2022-07-30 12:44] LABS: Bacteria 0 SEEN /hpf (None Seen); Mucous, Urine 0 SEEN /hpf (<or=2+); Red Blood Cells-Urine 0 SEEN /hpf (0-5); Squamous Epithelial Cells - UA 0 SEEN /hpf (0-5); White Blood Cells 0 SEEN /hpf (0-5)
[2022-07-30 12:45] LABS: Anion Gap 6 (5-15); BUN 12 mg/dL (7-18); BUN/Creat Ratio 14.1 RATIO (10-20); Calcium,Total 8.8 mg/dL (8.5-10.1); Chloride 105 mmol/L (98-107); Creatinine, Serum 0.85 mg/dL (0.70-1.30); EST Glomerular Filtration Rate 100 mL/min (>60); Est Glom Filt Rate - Afr Amer 121 mL/min (>60); Estimated Creatinine Clearance 91.74 ml/min; Glucose 192 mg/dL (74-106); Potassium 4.1 mmol/L (3.5-5.1); Sodium Level 140 mmol/L (136-145)
[2022-07-30 12:52] LABS: Color, Urine Yellow (Yellow); Glucose, Dipstick 250 mg/dl (Normal); Ketone-Dipstick Negative (Negative); Leukocyte Esterase-Dipstick Negative /ul (Negative); Nitrite-Dipstick Negative (Negative); Occult Blood-Urine Negative /ul (Negative); Protein-Dipstick Negative (Negative); Specific Gravity, Urine 1.015 (1.002-1.030); Urine Bilirubin Dipstick Negative (Negative); Urine Clarity Clear (Clear); Urine Urobilinogen Normal (Normal)
[2022-07-30 13:43] VITALS: BP 157/77; RESP 16; O2SAT 98
[2022-07-30 13:47] VITALS: BP 120/70; PULSE 94; RESP 16; O2SAT 99
== END 2022-07-30 13:47 | disposition home or self-care (01) ==
PROVIDERS: Emergency Provider Emergency Medicine; PCP Nurse Practitioner Family; Visit Provider Emergency Medicine
DX: E11.649 Type 2 diabetes mellitus with hypoglycemia without coma (principal); Z79.4 Long term (current) use of insulin; I10 Essential (primary) hypertension; E78.00 Pure hypercholesterolemia, unspecified; Z79.02 Long term (current) use of antithrombotics/antiplatelets; Z79.82 Long term (current) use of aspirin; Z79.899 Other long term (current) drug therapy; Z86.73 Personal history of transient ischemic attack (TIA), and cerebral infarction without residual deficits; Z87.891 Personal history of nicotine dependence
CPT/HCPCS: 80048; 81001; 82962; 85025; 99283; A4216

== ENCOUNTER → 2023-06-15 | Outpatient (CLI) | payer MEDICARE, SELFPAY ==
[2023-06-15 09:34] LABS: ALB/GLOB Ratio 1.1 RATIO (0.9-2.4); AST(SGOT) 17 U/L (15-37); Alanine Aminotransfer ALT/SGPT 28 U/L (16-61); Albumin, Serum 3.5 g/dL (3.2-5.0); Alkaline Phosphatase 112 U/L (45-117); Anion Gap 6 (5-15); BUN 8 mg/dL (7-18); BUN/Creat Ratio 10.4 RATIO (10-20); Calcium,Total 8.4 mg/dL (8.5-10.1); Chloride 108 mmol/L (98-107); Creatinine, Serum 0.77 mg/dL (0.70-1.30); EST Glomerular Filtration Rate 113 mL/min (>60); Est Glom Filt Rate - Afr Amer 136 mL/min (>60); Globulin 3.3 g/dL (2.2-4.2); Glucose 226 mg/dL (74-106); Potassium 3.7 mmol/L (3.5-5.1); Protein, Total 6.8 g/dL (6.4-8.2); Sodium Level 139 mmol/L (136-145)
[2023-06-15 10:17] LABS: Microalbumin,Random Urine 31.4 mg/L (NO RANGE EST.); Microalbumin:Creatinine Ratio 19.3 mg/g CRE (<30 mg/g CRE)
== END | disposition home or self-care (01) ==
LOC: LAB 07:33
PROVIDERS: PCP Nurse Practitioner Family; Referring Provider Nurse Practitioner Family; Visit Provider Nurse Practitioner Family
DX: E11.9 Type 2 diabetes mellitus without complications (principal)
CPT/HCPCS: 36415; 80053; 82043; 82570; 83036

== ENCOUNTER → 2023-10-21 | Outpatient (CLI) | payer MEDICARE, SELFPAY ==
[2023-10-21 07:45] LABS: Hematocrit 45.7 % (40-54); Hemoglobin 14.8 g/dL (13.0-16.5); Mean Corp Hgb Conc 32.4 g/dL (32-36); Mean Corpuscular Hgb 27.8 pg (27.0-32.0); Mean Corpuscular Volume 85.7 fL (80-94); Mean Platelet Vol. 11.2 fl (6.2-12.0); Platelet Count 277 K/mm3 (150-450); RBC Distribution Width SD 39.9 fl (35.1-43.9); Red Blood Count 5.33 M/mm3 (4.6-6.2); White Blood Count 6.8 K/mm3 (4.4-11.0)
[2023-10-21 08:14] LABS: AST(SGOT) 13 U/L (15-37); Alanine Aminotransfer ALT/SGPT 23 U/L (16-61); Albumin, Serum 3.3 g/dL (3.2-5.0); Alkaline Phosphatase 111 U/L (45-117); Anion Gap 1 (5-15); BUN 16 mg/dL (7-18); BUN/Creat Ratio 17.7 RATIO (10-20); Calcium,Total 8.5 mg/dL (8.5-10.1); Chloride 110 mmol/L (98-107); Cholesterol 190 mg/dL (200); EST Glomerular Filtration Rate 93 mL/min (>60); Est Glom Filt Rate - Afr Amer 112 mL/min (>60); Globulin 3.3 g/dL (2.2-4.2); Glucose 262 mg/dL (74-106); High Density Lipoprotein 46 mg/dL; Potassium 4.3 mmol/L (3.5-5.1); Protein, Total 6.6 g/dL (6.4-8.2); Sodium Level 140 mmol/L (136-145); Triglycerides 79 mg/dL; Very Low Density Lipoprotein 16 mg/dL (5-40)
[2023-10-21 08:16] LABS: Hemoglobin A1c 9.6 % (3.8-5.6)
== END | disposition home or self-care (01) ==
PROVIDERS: PCP Nurse Practitioner Family; Referring Provider Nurse Practitioner Family; Visit Provider Nurse Practitioner Family
DX: E11.9 Type 2 diabetes mellitus without complications (principal); I10 Essential (primary) hypertension; E78.5 Hyperlipidemia, unspecified; Z86.2 Personal history of diseases of the blood and blood-forming organs and certain disorders involving the immune mechanism
CPT/HCPCS: 36415; 80053; 80061; 83036; 85027

== ENCOUNTER → 2024-04-29 | Outpatient (CLI) | payer MEDICARE, SELFPAY ==
[2024-04-29 08:17] LABS: ALB/GLOB Ratio 0.9 RATIO (0.9-2.4); AST(SGOT) 20 U/L (15-37); Alanine Aminotransfer ALT/SGPT 38 U/L (16-61); Albumin, Serum 3.3 g/dL (3.2-5.0); Alkaline Phosphatase 128 U/L (45-117); Anion Gap 8 (5-15); BUN 18 mg/dL (7-18); BUN/Creat Ratio 21.1 RATIO (10-20); Calcium,Total 8.7 mg/dL (8.5-10.1); Chloride 106 mmol/L (98-107); Cholesterol 191 mg/dL (200); Creatinine, Serum 0.85 mg/dL (0.70-1.30); EST Glomerular Filtration Rate 99 mL/min (>60); Est Glom Filt Rate - Afr Amer 120 mL/min (>60); Globulin 3.6 g/dL (2.2-4.2); Glucose 175 mg/dL (74-106); High Density Lipoprotein 51 mg/dL; PSA,Total - Annual Screen 0.84 ng/mL (0.00-4.00); Potassium 3.8 mmol/L (3.5-5.1); Protein, Total 6.9 g/dL (6.4-8.2); Sodium Level 141 mmol/L (136-145); Triglycerides 97 mg/dL; Very Low Density Lipoprotein 19 mg/dL (5-40)
[2024-04-29 10:01] LABS: Hemoglobin A1c 9.5 % (3.8-5.6)
[2024-04-29 11:45] LABS: Microalbumin,Random Urine 40.5 mg/L (NO RANGE EST.); Microalbumin:Creatinine Ratio 23.4 mg/g CRE (<30 mg/g CRE)
== END | disposition home or self-care (01) ==
PROVIDERS: PCP Nurse Practitioner Family; Referring Provider Nurse Practitioner Family; Visit Provider Nurse Practitioner Family
DX: I10 Essential (primary) hypertension (principal); E11.9 Type 2 diabetes mellitus without complications; E78.5 Hyperlipidemia, unspecified; Z12.5 Encounter for screening for malignant neoplasm of prostate
CPT/HCPCS: 36415; 80053; 80061; 82043; 82570; 83036; 84153; G0103

== ENCOUNTER 2024-08-14 17:25 | Emergency (ER) | payer MEDICARE, SELFPAY ==
[2024-08-14 17:26] VITALS: BP 168/85; PULSE 82; RESP 16; TEMP 36.9; O2SAT 98; BMI 55.3
== END 2024-08-14 17:35 | disposition left against medical advice (07) ==
LOC: ED 17:42
PROVIDERS: PCP Nurse Practitioner Family
DX: Z53.21 Procedure and treatment not carried out due to patient leaving prior to being seen by health care provider (principal)

== ENCOUNTER → 2024-11-02 | Outpatient (CLI) | payer MEDICARE, SELFPAY ==
--- OUTSIDE RECORDS SUMMARY | 2024-11-02 06:54 | XMS RPT_ITS | CCD ---
Author Organization [facility] Care Team Providers Care Pan Devulcanizer Helper Name Role Phone Placido MUSICAL INSTRUMENTS ASSEMBLER, MUSICAL INSTRUMENTS ASSEMBLER-C [place] Primary Care Pr ovider Dr. Jelani Taylor Emergency Provider Dr. Diana Krause Admit Provider Dr. Diana Krause Other Provider Dr. Jimmy Mendez Other Provider JAYDEN Fairchild Attending Provider Unavail able Dr. Alexander Arnold Other Provider Dr. Perry Bearden Other Provider Dixon WELLS, PRISCILLA-Jasbir Panda Other Provider Dr. Jimmy Mendez Referring Provider Dr. Perry Bearden Attending Provider Dr. Jimmy Mendez Attending Provider Dr. Jaden Tipton Other Provider [phone] Dr. Jamey Guillermo Attending Provider Dr. Alexander Arnold Attending Provider Dr. Maria E Crews Other Provider Dr. Maria E Crews Attending Provider Dr. Jimmy Mendez Attending Provider Placido WELLS, PRISCILLA-Jasbir [place] Referring Provi alhaji Dixon WELLS, PRISCILLA-Jasbir Panda Attending Provider PLACIDO PRESSER ALL AROUND - DAVID MILLAN Primary Care Phys ician Placido MUSICAL INSTRUMENTS ASSEMBLER, MUSICAL INSTRUMENTS ASSEMBLER-C [place] Primary Care Pr ovider Dr. Jaden Lucio Attending Provider Placido MUSICAL INSTRUMENTS ASSEMBLER, MUSICAL INSTRUMENTS ASSEMBLER-C David Jaya Primary Care Pr ovider Placido MUSICAL INSTRUMENTS ASSEMBLER, MUSICAL INSTRUMENTS ASSEMBLER-C David Jaya Referring Provi alhaji Dr. Jaden Lucio Attending Provider Dr. Nelson Hurley Emergency Provider Dr. Ravin Cristina Admit Provider Dr. Ravin Cristina Attending Provider Dr. Ravin Cristina Other Provider Dr. Jamey Guillermo Attending Provider [phone] Dr. Aspen Celis Attending Provider Dr. Aspen Celsi Other Provider CHITRA Eli Attending Provider Dr. Nelson Gamino Attending Provider Jacinta Yang Unavailable Unavailable KAYLEY PRESSER ALL AROUND-EMPLOYMENT TRAINING SPECIALIST, BOOGIE Primary Care Physician BOOGIE PERES DO Attending Unavailable PLACIDO HOWARD - DAVID MILLAN Primary Care U navailable KAYLEY APRN-MONTY, BOOGIE Primary Care Matthew CUMMINS APRN - DAVID MILLAN Attending U navailable KAYLEY PRESSER ALL AROUND-EMPLOYMENT TRAINING SPECIALIST, BOOGIE Primary Care Unavai CUATE Serrano Attending Unavailable STEPHEN MILLIGAN Consulting Unavailable KEVIN SPRAGUE, PHOEBE Admitting Unavailable DAPHNE VELAZQUEZ MD Attending Unavailable PLACIDO HOWARD - DAVID MILLAN Primary Care U navailLUIS DANIEL Morel MD Consulting Unavailable Placido MUSICAL INSTRUMENTS ASSEMBLER-C, [place] Primary Care Provi alhaji KAYLEY MUSICAL INSTRUMENTS ASSEMBLER-C, BOOGIE Attending Provider KAYLEY MUSICAL INSTRUMENTS ASSEMBLER-C, BOOGIE Referring Provider Provider, Ed Physician Emergency Provider Unadaríoi lable KAYLEY PRESSER ALL AROUND-EMPLOYMENT TRAINING SPECIALIST, BOOGIE Primary Care Unavai lable KAYLEY PRESSER ALL AROUND-EMPLOYMENT TRAINING SPECIALIST, BOOGIE Attending Unavai lable KAYLEY PRESSER ALL AROUND-EMPLOYMENT TRAINING SPECIALIST, BOOGIE Primary Care Unavai lable KAYLEY PRESSER ALL AROUND-EMPLOYMENT TRAINING SPECIALIST, BOOGIE Attending Unavai lable KAYLEY PRESSER ALL AROUND-EMPLOYMENT TRAINING SPECIALIST, BOOGIE Primary Care Unavai lable [facility], BOOGIE Attending Unavailable KAYLEY PRESSER ALL AROUND-EMPLOYMENT TRAINING SPECIALIST, BOOGIE Primary Care Unavai lable ADRIEL PRESSER ALL AROUND-EMPLOYMENT TRAINING SPECIALIST, SAYEDA Attending Unavailab le KAYLEY, BOOGIE Attending Unavailable KAYLEY, BOOGIE Referring Unavailable Placido MUSICAL INSTRUMENTS ASSEMBLER, [place] Primary Care Unav ailable Provider, Ed Physician Attending Shaq Zapata MUSICAL INSTRUMENTS ASSEMBLER, [place] Primary Care Unav ailable KAYLEY, BOOGIE Attending Unavailable KAYLEY, BOOGIE Referring Unavailable Placido MUSICAL INSTRUMENTS ASSEMBLER, [place] Primary Care Unav ailable Allergies Allergy Classification Reported Allergen(s) Allergy Type Date of Onset Reaction(s) Facility (20 sources) Penicillins; Translations: [Penicillins] Allergy to substance 10-08-19 RASH/LONG TIME TO WAKE ME UP [facility] (19 sources) bee venom protein (honey bee) Allergy to substance 10-08-19 Swelling [facility] (7 sources) Bee/Wasp/Ant venom Allergy to substance Unknown (qualifier value) [facility] (7 sources) exenatide; Translations: [exenatide] Drug Allergy [place] sick [facility] (7 sources) metFORMIN; Translations: [metformin] Drug Allergy Diarrhea (finding) [facility] (7 sources) Penicillin; Translations: [penicillin] Drug Allergy Drowsiness, function (observable entity) [facility] (7 sources) Sulfamethoxazole / Trimethoprim; Translations: [sulfamethoxazole-tr imethoprim] Drug Allergy Eruption of skin (disorder) [facility] (6 sources) Amoxicillin; Translations: [amoxicillin] Drug Allergy amoxicillin [facility] (1 source) bee venom protein (honey bee) Drug allergy (disorder) 08-15-19 [facility] Repository Medications Current Medications Medication Drug Class(es) Dates Sig (Normalized) Sig (Original) acetaminophen 325 mg oral capsule (5 sources) Start: 12-08-2022 Tylenol 325 mg oral capsule Dose : 650 mg =, Oral, q4h, PRN Pain, scale 1-3, 0 Refill(s) Start Date: 12/08/22 Status: Ordered Repeat number: 1 amLODIPine 5 mg oral tablet (20 sources) Dihydropyridine Calcium Channel [place] Start: 01-12-2024 End: 11-13-2024 Norvasc 5 mg oral tablet Dose : 5 mg = 1 tab(s), Oral, BID, # 180 tab(s), 1 Refill(s), Pharmacy: [facility], HTN, goal below 140/90, 169, cm, 05/17/24 10:17:00 EST, Height, kg, 05/17/24 10:17:00 EST, Dosing Weight Start Date: 05/17/24 Stop Date: 11/13/24 Status: Ordered Quantity: 180.0 Unit: tab(s) Repeat number: 2 Indications: Essential (primary) hypertension; Start: 08-10-2021 End: 12-16-2023 Norvasc 5 mg oral tablet Dos e : 5 mg = 1 tab(s), Oral, BID, # 180 tab(s), 1 Refill(s), Pharmacy: [facility], HTN, goal below 140/90, 168.3, cm, 06/19/23 14:00:00 EDT, Height, kg, 06/19/23 14:00:00 EDT, Dosing Weight Start Date: 06/19/23 Stop Date: 12/16/23 Status: Ordered aspirin 81 mg chewable tablet (6 sources) Platelet Aggregation Inhibitor, Nonsteroidal Anti-inflammatory Drug Start: 07-12-2022 take 1 tablet by mouth at breakfast Aspirin 81 mg Tablet,Chewable Active 81 mg PO WITH BREAKFAST July 12, 2022 12:00am atorvastatin 80 mg oral tablet (20 sources) HMG-CoA Reductase Inhibitor Start: 08-10-2021 take 1 tablet by mouth at bedtime Atorvastatin 80 mg Tablet Active 80 mg PO AT BEDTIME July 12, 2022 12:00am benzonatate 100 mg oral capsule (10 sources) Non-narcotic Antitussive Start: 08-10-2021 take 200 mg by mouth three times daily Benzonatate Active 200 MG PO THREE TIMES A DAY 07 10August 09, 2021 11:00pm Breztri Aerosphere 160 mcg-9 mcg-4.8 mcg/inh inhalation aerosol (1 source) Start: 09-25-2023 take 1 dose by mouth twice daily Breztri Aerosphere 160 mcg-9 mcg-4.8 mcg/inh inhalation aerosol Dose = 2 puff(s), Inhalation, BID, rinse mouth and throat after use, # 10.7 gram(s), 3 Refill(s), Pharmacy: [facility], COPD with asthma, 170, cm, 09/25/23 13:05:00 EDT, Height, kg, 09/25/23 13:05:00 EDT, Dosing Weight Start Date: 09/25/23 Status: Ordered celecoxib 200 mg oral capsule (5 sources) Nonsteroidal Anti-inflammatory Drug Start: 05-17-2024 CeleBREX 200 mg oral capsule Dose : 200 mg = 1 cap(s), Oral, qDay, # 90 cap(s), 1 Refill(s), Pharmacy: [facility], Osteoarthritis of multiple joints, 169, cm, 05/17/24 10:17:00 EST, Height, kg, 05/17/24 10:17:00 EST, Dosing Weight Start Date: 05/17/24 Status: Ordered Quantity: 90.0 Unit: cap(s) Repeat number: 2 Indications: Polyosteoarthritis, unspecified; Start: 01-12-2024 CeleBREX 200 m g oral capsule Dose : 200 mg = 1 cap(s), Oral, qDay, # 90 cap(s), 1 Refill(s), Pharmacy: [facility], Osteoarthritis of multiple joints, 168, cm, 01/12/24 14:55:00 EDT, Height, kg, 01/12/24 14:55:00 EDT, Dosing Weight Start Date: 01/12/24 Status: Ordered Start: 07-25-2022 CeleBREX 200 m g oral capsule Dose : 200 mg = 1 cap(s), Oral, qDay, # 90 cap(s), 1 Refill(s), Pharmacy: [facility], Pain of right knee after injury, 173, cm, 07/25/22 13:56:00 EDT, Height, kg, 07/25/22 13:56:00 EDT, Dosing Weight Start Date: 07/25/22 Status: Ordered cetirizine hydrochloride 10 mg oral tablet (1 source) Histamine-1 Receptor Antagonist Start: 09-23-2023 End: 10-23-2023 cetirizine 10 mg oral tablet Dose : 10 mg = 1 tab(s), Oral, qDay, PRN Rash, # 30 tab(s), 0 Refill(s), Pharmacy: [facility], 66.3, cm, 09/23/23 8:52:00 EDT, Height, kg, 09/23/23 8:52:00 EDT, Dosing Weight Start Date: 09/23/23 Stop Date: 10/23/23 Status: Ordered chlorhexidine gluconate 40 mg/ml medicated liquid soap (1 source) Start: 12-08-2022 End: 12-13-2022 apply 1 dose topically once daily chlorhexidine 4% topical soap Dose = 1 merlene, Topical, Daily, # 120 mL, 0 Refill(s), Pharmacy: [facility], 167.6, cm, 12/04/22 17:22:00 EDT, Height, kg, 12/04/22 17:22:00 EDT, Dosing Weight Start Date: 12/08/22 Stop Date: 12/13/22 Status: Ordered cholecalciferol 1.25 mg oral capsule (4 sources) Vitamin D Start: 06-19-2023 End: 12-16-2023 cholecalciferol 1250 mcg (50,000 intl units) oral capsule Dose : 1,250 mcg = 1 cap(s), Oral, qWeek, # 13 cap(s), 1 Refill(s), Pharmacy: [facility], Vitamin D deficiency, 168.3, cm, 06/19/23 14:00:00 EDT, Height, kg, 06/19/23 14:00:00 EDT, Dosing Weight Start Date: 06/19/23 Stop Date: 12/16/23 Status: Ordered Start: 07-25-2022 End: 01-21-2023 cholecalciferol 1250 mcg (50 ,000 intl units) oral capsule Dose : 1,250 mcg = 1 cap(s), Oral, qWeek, # 13 cap(s), 1 Refill(s), Pharmacy: [facility], Vitamin D deficiency, 173, cm, 07/25/22 13:56:00 EDT, Height, kg, 07/25/22 13:56:00 EDT, Dosing Weight Start Date: 07/25/22 Stop Date: 01/21/23 Status: Ordered Start: 07-02-2021 End: 12-29-2021 cholecalciferol 1250 mcg (50 ,000 intl units) oral capsule Dose : 1,250 mcg = 1 cap(s), Oral, qWeek, # 13 cap(s), 1 Refill(s), Pharmacy: [facility], Vitamin D deficiency, 169, cm, 07/02/21 15:31:00 EDT, Height, kg, 07/02/21 15:31:00 EDT, Dosing Weight Start Date: 07/02/21 Stop Date: 12/29/21 Status: Ordered clindamycin 300 mg oral capsule (1 source) Lincosamide Antibacterial Start: 12-08-2022 End: 12-18-2022 clindamycin 300 mg oral capsule Dose : 300 mg = 1 cap(s), Oral, q6h, X 10 day(s), # 40 cap(s), 0 Refill(s), 12/18/22 11:14:00 AM EDT, Pharmacy: [facility], 167.6, cm, 12/04/22 17:22:00 EDT, Height, 152.6, kg, 12/04/22 17:22:00 EDT, Dosing Weight Start Date: 12/08/22 Stop Date: 12/18/22 Status: Ordered clopidogrel 75 mg oral tablet (8 sources) [id number] Platelet Inhibitor Start: 07-12-2022 End: 10-22-2022 take 1 tablet by mouth once daily Clopidogrel (Plavix) 75 mg tablet Active 75 mg PO DAILY July 12, 2022 12:00am DME [facility] (20 sources) Start: 07-03-2024 DME [facility] See Instructions, Knee-high compression stockings with compression to 20-30., # 2 EA, 0 Refill(s), Lower extremity edema, 169, cm, 07/03/24 13:37:00 EDT, Height, 154.1, kg, 07/03/24 13:37:00 EDT, Dosing Weight Start Date: 07/03/24 Status: Ordered Quantity: 2.0 Unit: EA Repeat number: 1 Indications: Localized edema; Start: 03-26-2024 DME MISCellane ous See Instructions, Libre3 Sensors #2 sensors. Apply to arm once every 14 days to monitor glucose, # 2 EA, 11 Refill(s), Pharmacy: [facility], 170, cm, 02/26/24 12:58:00 EST, Height, 151.3, kg, 02/26/24 12:58:00 EST, Dosing Weight Start Date: 03/26/24 Status: Ordered Quantity: 2.0 Unit: EA Repeat number: 12 Start: 09-25-2023 DME MISCellane ous See Instructions, Knee-high compression stockings with compression of 20-30. Requesting 2 pairs., # 2 EA, 0 Refill(s), Pharmacy: [facility], Peripheral edema, 170, cm, 09/25/23 13:05:00 EDT, Height, 152.7, kg, 09/25/23 13:05:00 EDT, Dosing Weight Start Date: 09/25/23 Status: Ordered Quantity: 2.0 Unit: EA Repeat number: 1 Indications: Edema, unspecified; Start: 09-25-2023 DME MISCellane ous See Instructions, Knee-high compression stockings with compression of 20-30. Requesting 2 pairs., # 2 EA, 0 Refill(s), Pharmacy: [facility], Peripheral edema, 170, cm, 09/25/23 13:05:00 EDT, Height, 152.7, kg, 09/25/23 13:05:00 EDT, Dosing Weight Start Date: 09/25/23 Status: Ordered Start: 05-24-2023 DME MISCellane ous See Instructions, Libre3 Sensors #2 sensors. Apply to arm once every 14 days to monitor glucose, # 2 EA, 11 Refill(s), Pharmacy: [facility], 170, cm, 04/13/23 13:42:00 EST, Height, 158.4, kg, 05/16/23 13:39:00 EST, Dosing Weight Start Date: 05/24/23 Status: Ordered Start: 03-24-2022 DME MISCellane ous See Instructions, Compression socks, knee high with compression 30-40, # 2 EA, 0 Refill(s), Pharmacy: [facility], Chronic venous insufficiency, 169, cm, 01/25/22 10:01:00 EST, Height, 180.7, kg, 01/25/22 10:01:00 EST, Dosing Weight Start Date: 03/24/22 Status: Ordered Quantity: 2.0 Unit: EA Repeat number: 1 Indications: Venous insufficiency (chronic) (peripheral); Start: 03-24-2022 DME MISCellane ous See Instructions, Compression socks, knee high with compression 30-40, # 2 EA, 0 Refill(s), Pharmacy: [facility], Chronic venous insufficiency, 169, cm, 01/25/22 10:01:00 EST, Height, 180.7, kg, 01/25/22 10:01:00 EST, Dosing Weight Start Date: 03/24/22 Status: Ordered Start: 03-24-2022 DME MISCellane ous See Instructions, PT. REQUESTING 2 PAIR OF COMPRESSION SOCKS. 30/40 COMPRESSION, # 2 EA, 0 Refill(s), DM type 2, goal HbA1c Start Date: 03/24/22 Status: Ordered Quantity: 2.0 Unit: EA Repeat number: 1 Indications: Type 2 diabetes mellitus without complications; Start: 03-24-2022 DME MISCellane ous See Instructions, PT. REQUESTING 2 PAIR OF COMPRESSION SOCKS. 30/40 COMPRESSION, # 2 EA, 0 Refill(s), DM type 2, goal HbA1c Start Date: 03/24/22 Status: Ordered Start: 03-24-2022 DME MISCellane ous See Instructions, PT. REQUESTING 2 PAIR OF COMPRESSION SOCKS. 30/40 COMPRESSION, # 2 EA, 0 Refill(s), other reason (Rx), DM type 2, goal HbA1c Start Date: 03/24/22 Status: Ordered Start: 08-23-2021 DME MISCellane ous See Instructions, PT. REQUESTING 2 PAIR OF COMPRESSION SOCKS. 30/40 COMPRESSION, # 1 EA, 0 Refill(s), DM type 2, goal HbA1c Start Date: 08/23/21 Status: Ordered Start: 07-13-2020 DME MISCellane ous See Instructions, Compression socks, knee high with compression 30-40, # 1 EA, 0 Refill(s), Chronic venous insufficiency, 158.3 Start Date: 07/13/20 Status: Ordered Start: 07-18-2019 DME MISCellane ous See Instructions, Glucometer Test Kit-One that insurance will cover, # 1 EA, 0 Refill(s), 170, cm, 05/07/19 10:24:00 EST, Height, 155.8, kg, 05/07/19 10:20:00 EST, Dosing Weight Start Date: 07/18/19 Status: Ordered Quantity: 1.0 Unit: EA Repeat number: 1 Start: 07-18-2019 DME MISCellane ous See Instructions, Glucometer Test Kit-One that insurance will cover, # 1 EA, 0 Refill(s), 170, cm, 05/07/19 10:24:00 EST, Height, 155.8, kg, 05/07/19 10:20:00 EST, Dosing Weight Start Date: 07/18/19 Status: Ordered doxycycline hyclate 100 mg oral capsule (3 sources) Tetracycline-class Drug Start: 08-14-2024 End: 08-24-2024 doxycycline hyclate 100 mg oral capsule Dose : 100 mg = 1 cap(s), Oral, BID, X 10 day(s), # 20 cap(s), 0 Refill(s), 08/24/24 7:03:00 PM EDT, 150 Start Date: 08/14/24 Stop Date: 08/24/24 Status: Ordered Quantity: 20.0 Unit: cap(s) Repeat number: 1 Start: 12-01-2022 End: 12-11-2022 doxycycline hyclate 100 mg o ral capsule Dose : 100 mg = 1 cap(s), Oral, BID, X 10 day(s), # 20 cap(s), 0 Refill(s), 12/11/22 1:57:00 PM EDT, Pharmacy: [facility], Abscess, 173, cm, 12/01/22 13:40:00 EDT, Height, 165.7, kg, 12/01/22 13:40:00 EDT, Dosing Weight Start Date: 12/01/22 Stop Date: 12/11/22 Status: Ordered famotidine 20 mg oral tablet (1 source) Histamine-2 Receptor Antagonist Start: 09-23-2023 End: 10-23-2023 famotidine 20 mg oral tablet Dose : 20 mg = 1 tab(s), Oral, BID, PRN Rash, avoid eating and drinking for 10 minutes after each dose, # 60 tab(s), 0 Refill(s), Pharmacy: [facility], 66.3, cm, 09/23/23 8:52:00 EDT, Height, kg, 09/23/23 8:52:00 EDT, Dosing Weight Start Date: 09/23/23 Stop Date: 10/23/23 Status: Ordered ferrous sulfate 325 mg oral tablet (3 sources) Start: 07-25-2022 End: 01-21-2023 ferrous sulfate 325 mg (65 mg elemental iron) oral tablet Dose : 325 mg = 1 tab(s), Oral, qDay, # 90 tab(s), 1 Refill(s), Pharmacy: [facility], 173, cm, 07/25/22 13:56:00 EDT, Height, kg, 07/25/22 13:56:00 EDT, Dosing Weight Start Date: 07/25/22 Stop Date: 01/21/23 Status: Ordered Start: 07-02-2021 End: 12-29-2021 ferrous sulfate 325 mg (65 m g elemental iron) oral tablet Dose : 325 mg = 1 tab(s), Oral, qDay, # 90 tab(s), 1 Refill(s), Pharmacy: [facility], 169, cm, 07/02/21 15:31:00 EDT, Height, kg, 07/02/21 15:31:00 EDT, Dosing Weight Start Date: 07/02/21 Stop Date: 12/29/21 Status: Ordered fluticasone propionate 0.05 mg/actuat metered dose nasal spray (20 sources) Corticosteroid Start: 02-19-2024 End: 08-17-2024 take 100 ug nasal route once daily fluticasone 50 mcg/inh NASAL spray 100 mcg Dose = 2 spray(s), Nostril, each, qDay, shake well before using, # 16 gram(s), 5 Refill(s), Pharmacy: [facility], Allergic rhinitis, 169, cm, 02/19/24 10:03:00 EST, Height, kg, 02/19/24 10:03:00 EST, Dosing Weight Start Date: 02/19/24 Stop Date: 08/17/24 Status: Ordered Quantity: 16.0 Unit: g Repeat number: 6 Indications: Allergic rhinitis, unspecified; Start: 05-13-2022 take 200 ug by inhal ation once daily Fluticasone Furoate (Arnuity Ellipta) 200 mcg/actuation blister with device Active 1 NMA INHALATION daily May 13, 2022 1:00am administer at approximately the same time(s) each day Start: 05-13-2022 take 200 ug by inhal ation once daily Fluticasone Furoate (Arnuity Ellipta) 200 mcg/actuation blister with device Active 1 INH INHALATION daily May 13, 2022 1:00am administer at approximately the same time(s) each day Start: 05-13-2022 take 200 ug by inhal ation once daily Fluticasone Furoate (Arnuity Ellipta) 200 mcg/actuation blister with device Active 1 INH INHALATION daily May 13, 2022 12:00am administer at approximately the same time(s) each day Start: 10-05-2021 End: 10-25-2021 take 100 ug by inhalation every twenty-four hours Fluticasone Furoate (Arnuity Ellipta) 100 mcg/actuation blister with device Discontinued 1 NMA INHALATION Q24H October 05, 2021 12:00am October 25, 2021 7:46am furosemide 20 mg oral tablet (6 sources) Loop Diuretic Start: 05-17-2024 Lasix 20 mg or al tablet Dose : 20 mg = 1 tab(s), Oral, qDay, # 90 tab(s), 1 Refill(s), Pharmacy: [facility], 169, cm, 05/17/24 10:17:00 EST, Height, kg, 05/17/24 10:17:00 EST, Dosing Weight Start Date: 05/17/24 Status: Ordered Quantity: 90.0 Unit: tab(s) Repeat number: 2 Start: 01-12-2024 Lasix 20 mg or al tablet Dose : 20 mg = 1 tab(s), Oral, qDay, # 90 tab(s), 1 Refill(s), Pharmacy: [facility], 168, cm, 01/12/24 14:55:00 EDT, Height, kg, 01/12/24 14:55:00 EDT, Dosing Weight Start Date: 01/12/24 Status: Ordered Start: 06-19-2023 Lasix 20 mg or al tablet Dose : 20 mg = 1 tab(s), Oral, qDay, # 90 tab(s), 1 Refill(s), Pharmacy: [facility], 168.3, cm, 06/19/23 14:00:00 EDT, Height, kg, 06/19/23 14:00:00 EDT, Dosing Weight Start Date: 06/19/23 Status: Ordered Start: 11-11-2022 End: 01-10-2023 Lasix 20 mg oral tablet Dose : 20 mg = 1 tab(s), Oral, qDay, # 30 tab(s), 1 Refill(s), Pharmacy: [facility], 173, cm, 10/28/22 13:51:00 EDT, Height, kg, 10/28/22 13:51:00 EDT, Dosing Weight Start Date: 11/11/22 Stop Date: 01/10/23 Status: Ordered gabapentin 400 mg oral capsule (20 sources) Anti-epileptic Agent Start: 05-07-2019 gabapentin 400 mg oral capsule Dose : 400 mg = 1 cap(s), Oral, TID, # 120 cap(s), 0 Refill(s), 163.2 Start Date: 05/07/19 Status: Ordered Quantity: 120.0 Unit: cap(s) Repeat number: 1 glipiZIDE er 5 mg 24 hr extended release oral tablet (1 source) Sulfonylurea Start: 06-27-2023 glipiZIDE 5 mg oral tablet, extended release Dose : 5 mg = 1 tab(s), Oral, qDay, # 30 tab(s), 1 Refill(s), Pharmacy: [facility], 168.3, cm, 06/19/23 14:00:00 EDT, Height, kg, 06/19/23 14:00:00 EDT, Dosing Weight Start Date: 06/27/23 Status: Ordered hydroCHLOROthiazide 12.5 mg oral capsule (17 sources) Thiazide Diuretic Start: 08-10-2021 take 1 capsule by mouth once daily Hydrochlorothiazide 12.5 mg Capsule Active 12.5 mg PO DAILY August 10, 2021 12:00am 3 ml insulin aspart, human 100 unt/ml pen injector (20 sources) Insulin Analog Start: 08-16-2024 NovoLOG FlexPen 100 units/mL injectable solution Dose : 8 unit(s) =, Subcutaneous, BIDAC, # 15 mL, 3 Refill(s), Pharmacy: [facility], 167.6, cm, 08/14/24 18:14:00 EDT, Height, kg, 08/14/24 18:14:00 EDT, Dosing Weight Start Date: 08/16/24 Status: Ordered Quantity: 15.0 Unit: mL Repeat number: 4 Start: 02-14-2024 Insulin Aspart FlexPen 100 units/mL injectable solution Dose : 5 unit(s) =, Subcutaneous, TIDAC, # 15 mL, 2 Refill(s), Pharmacy: [facility], 169, cm, 02/06/24 15:50:00 EST, Height, kg, 02/14/24 14:02:00 EST, Dosing Weight Start Date: 02/14/24 Status: Ordered Start: 12-04-2022 inject 1 dose by sub cutaneous injection twice daily NovoLOG 100 units/mL injectable solution Dose : 10 unit(s) =, Subcutaneous, BID, # 10 mL, 0 Refill(s) Start Date: 12/04/22 Status: Ordered Start: 10-28-2022 End: 04-26-2023 NovoLOG FlexPen 100 units/mL injectable solution Dose : 28 unit(s) =, Subcutaneous, TIDAC, QS for 30 day supply, # 75 mL, 1 Refill(s), Pharmacy: [facility], 173, cm, 10/28/22 13:51:00 EDT, Height, kg, 10/28/22 13:51:00 EDT, Dosing Weight Start Date: 10/28/22 Stop Date: 04/26/23 Status: Ordered Start: 08-04-2021 Insulin Aspart U-100 (Novolog Flexpen U-100 Insulin) 100 unit/mL (3 mL) insulin pen Active 20 - 25 sliding scale dose SC TWICE A DAY August 04, 2021 12:00am Start: 08-04-2021 Insulin Aspart U-100 (Novolog Flexpen U-100 Insulin) 100 unit/mL (3 mL) insulin pen Active 20 - 25 sliding scale dose SC TWICE A DAY August 04, 2021 12:00am Start: 07-02-2021 End: 12-29-2021 NovoLOG FlexPen 100 units/mL injectable solution Dose : 35 unit(s) =, Subcutaneous, BIDAC, QS for 30 day supply, # 65 mL, 1 Refill(s), Pharmacy: [facility], 169, cm, 07/02/21 15:31:00 EDT, Height, kg, 07/02/21 15:31:00 EDT, Dosing Weight Start Date: 07/02/21 Stop Date: 12/29/21 Status: Ordered Insulin Glargine-Yfgn (20 sources) Start: 07-11-2022 Insulin Glargi ne-Yfgn 100 unit/mL (3 mL) insulin pen Active 50 U SC TWICE A DAY July 11, 2022 7:22pm Start: 07-11-2022 Insulin Glargi ne-Yfgn Active 50 UNIT SC TWICE A DAY July 11, 2022 7:22pm Start: 08-10-2021 Insulin Glargi ne-Yfgn Active 90 UNIT SC AT BEDTIME August 10, 2021 11:07am Start: 08-10-2021 End: 07-11-2022 Insulin Glargine-Yfgn 100 un it/mL (3 mL) Insulin Pen Discontinued 90 U SC AT BEDTIME August 10, 2021 12:00am July 11, 2022 7:23pm Start: 08-10-2021 End: 07-11-2022 Insulin Glargine-Yfgn Discon tinued 90 UNIT SC AT BEDTIME August 10, 2021 12:00am July 11, 2022 7:23pm Start: 08-10-2021 Insulin Glargi ne-Yfgn Active 90 UNIT SC AT BEDTIME August 09, 2021 11:00pm Start: 08-10-2021 Insulin Glargi ne-Yfgn Active 90 UNIT SC AT BEDTIME August 10, 2021 12:00am 3 ml insulin isophane, human 70 unt/ml / insulin, regular, human 30 unt/ml pen injector (1 source) Insulin Start: 08-09-2024 HumuLIN 70/30 KwikPen 70 units-30 units/mL subcutaneous suspension 60 unit(s), Subcutaneous, BIDAC, # 45 mL, 1 Refill(s), Pharmacy: [facility], 170, cm, 07/08/24 13:21:00 EDT, Height, kg, 07/08/24 13:21:00 EDT, Dosing Weight Start Date: 08/09/24 Status: Ordered Quantity: 45.0 Unit: mL Repeat number: 2 3 ml insulin lispro 100 unt/ml pen injector (10 sources) Insulin Analog Start: 08-10-2021 Insulin Lispro (Humalog Kwikpen Insulin) 100 unit/mL Insulin Pen Active 30 UNIT SC THREE TIMES DAILY BEFORE MEALS August 09, 2021 11:00pm levocetirizine dihydrochloride 5 mg oral tablet (20 sources) Histamine-1 Receptor Antagonist Start: 08-04-2021 take 1 tablet by mouth at bedtime Levocetirizine 5 mg tablet Active 5 mg PO AT BEDTIME August 04, 2021 12:00am Start: 11-17-2020 End: 06-15-2021 Xyzal 5 mg oral tablet Dose : 5 mg = 1 tab(s), Oral, qHS, # 30 tab(s), 6 Refill(s), Pharmacy: [facility], Seasonal allergies, 170, cm, 11/17/20 14:55:00 EDT, Height, kg, 11/17/20 14:55:00 EDT, Dosing Weight Start Date: 11/17/20 Stop Date: 06/15/21 Status: Ordered linezolid 600 mg oral tablet (11 sources) Oxazolidinone Antibacterial Start: 08-10-2021 take 600 mg by mouth every twelve hours Linezolid Active 600 MG PO Q12H 12 03August 10, 2021 12:00am 3 ml liraglutide 6 mg/ml pen injector (7 sources) GLP-1 Receptor Agonist Start: 07-17-2024 End: 11-14-2024 inject 1 dose by subcutaneous injection once daily Victoza 18 mg/3 mL subcutaneous Pen Dose : 1.8 mg =, Subcutaneous, qDay, # 9 mL, 3 Refill(s), Pharmacy: [facility], 170, cm, 07/08/24 13:21:00 EDT, Height, kg, 07/08/24 13:21:00 EDT, Dosing Weight Start Date: 07/17/24 Stop Date: 11/14/24 Status: Ordered Quantity: 9.0 Unit: mL Repeat number: 4 Start: 02-14-2024 End: 06-13-2024 inject 1 dose by subcutaneous injection once daily Victoza 18 mg/3 mL subcutaneous Pen Dose : 1.8 mg =, Subcutaneous, qDay, # 9 mL, 3 Refill(s), Pharmacy: [facility], 169, cm, 02/06/24 15:50:00 EST, Height, kg, 02/06/24 15:50:00 EST, Dosing Weight Start Date: 02/14/24 Stop Date: 06/13/24 Status: Ordered Start: 05-04-2023 End: 01-29-2024 inject 1 dose by subcutaneous injection once daily Victoza 18 mg/3 mL subcutaneous Pen Dose : 1.8 mg =, Subcutaneous, qDay, # 15 mL, 2 Refill(s), Pharmacy: [facility], 170, cm, 04/13/23 13:42:00 EST, Height, kg, 04/13/23 13:42:00 EST, Dosing Weight Start Date: 05/04/23 Stop Date: 01/29/24 Status: Ordered Start: 10-28-2022 End: 04-26-2023 inject 1 dose by subcutaneous injection once daily Victoza 18 mg/3 mL subcutaneous Pen Dose : 1.8 mg =, Subcutaneous, qDay, # 15 mL, 1 Refill(s), Pharmacy: [facility], 173, cm, 10/28/22 13:51:00 EDT, Height, kg, 10/28/22 13:51:00 EDT, Dosing Weight Start Date: 10/28/22 Stop Date: 04/26/23 Status: Ordered Start: 07-02-2021 inject 1 dose by sub cutaneous injection once daily Victoza 18 mg/3 mL subcutaneous Pen Dose : 1.8 mg =, Subcutaneous, qDay, # 9 mL, 6 Refill(s), Pharmacy: [facility], 169, cm, 07/02/21 15:31:00 EDT, Height, kg, 07/02/21 15:31:00 EDT, Dosing Weight Start Date: 07/02/21 Status: Ordered loratadine 10 mg oral tablet (3 sources) Start: 02-19-2024 loratadine 10 mg oral tablet Dose : 10 mg = 1 tab(s), Oral, qDay, # 90 tab(s), 1 Refill(s), Pharmacy: [facility], Allergic rhinitis, 169, cm, 02/19/24 10:03:00 EST, Height, kg, 02/19/24 10:03:00 EST, Dosing Weight Start Date: 02/19/24 Status: Ordered Quantity: 90.0 Unit: tab(s) Repeat number: 2 Indications: Allergic rhinitis, unspecified; meclizine hydrochloride 25 mg oral tablet (19 sources) Antiemetic Start: 03-17-2016 take 1 tablet by mouth four times daily as needed for dizziness Meclizine 25 MG tablet Active 25 mg PO 4 TIMES DAILY NEEDED as needed for Dizziness March 17, 2016 1:00am mupirocin 20 mg/ml topical cream (1 source) RNA Synthetase Inhibitor Antibacterial Start: 12-08-2022 End: 12-18-2022 mupirocin 2% topical cream Apply 1 merlene, Topical, Daily, X 10 day(s), # 15 gram(s), 0 Refill(s), Pharmacy: [facility], 167.6, cm, 12/04/22 17:22:00 EDT, Height, 152.6, kg, 12/04/22 17:22:00 EDT, Dosing Weight Start Date: 12/08/22 Stop Date: 12/18/22 Status: Ordered 60 actuat olodaterol 0.0025 mg/actuat / tiotropium 0.0025 mg/actuat inhalation spray (20 sources) Anticholinergic, beta2-Adrenergic Agonist Start: 05-17-2024 take 1 dose by inhalation every twenty-four hours Stiolto Respimat 60 ACT 2.5 mcg-2.5 mcg/inh inhalation aerosol Dose = 2 puff(s), Inhalation, q24h, # 4 gram(s), 5 Refill(s), Pharmacy: [facility], COPD with asthma, 169, cm, 05/17/24 10:17:00 EST, Height, kg, 05/17/24 10:17:00 EST, Dosing Weight Start Date: 05/17/24 Status: Ordered Quantity: 4.0 Unit: g Repeat number: 6 Indications: Chronic obstructive pulmonary disease, unspecified; Start: 01-12-2024 take 1 dose by inhal ation every twenty-four hours Stiolto Respimat 60 ACT 2.5 mcg-2.5 mcg/inh inhalation aerosol Dose = 2 puff(s), Inhalation, q24h, # 4 gram(s), 0 Refill(s), Pharmacy: [facility], COPD with asthma, 168, cm, 01/12/24 14:55:00 EDT, Height, kg, 01/12/24 14:55:00 EDT, Dosing Weight Start Date: 01/12/24 Status: Ordered Start: 08-18-2023 take 1 dose by inhal ation every twenty-four hours Stiolto Respimat 60 ACT 2.5 mcg-2.5 mcg/inh inhalation aerosol Dose = 2 puff(s), Inhalation, q24h, # 4 gram(s), 0 Refill(s), Pharmacy: [facility], COPD with asthma, 168, cm, 07/07/23 9:06:00 EDT, Height, kg, 08/10/23 15:08:00 EDT, Dosing Weight Start Date: 08/18/23 Status: Ordered Start: 11-11-2022 take 1 dose by inhal ation every twenty-four hours Stiolto Respimat 60 ACT 2.5 mcg-2.5 mcg/inh inhalation aerosol Dose = 2 puff(s), Inhalation, q24h, # 4 gram(s), 5 Refill(s), Pharmacy: [facility], COPD with asthma, 173, cm, 10/28/22 13:51:00 EDT, Height, kg, 10/28/22 13:51:00 EDT, Dosing Weight Start Date: 11/11/22 Status: Ordered Start: 09-13-2021 Tiotropium-Olo daterol (Stiolto Respimat) 2.5-2.5 mcg/actuation mist Active 2 NMA INHALATION DAILY September 13, 2021 12:00am Start: 09-13-2021 Tiotropium-Olo daterol (Stiolto Respimat) 2.5-2.5 mcg/actuation mist Active 2 PUFF INHALATION DAILY September 12, 2021 11:00pm Start: 09-13-2021 Tiotropium-Olo daterol (Stiolto Respimat) 2.5-2.5 mcg/actuation mist Active 2 PUFF INHALATION DAILY September 13, 2021 12:00am Start: 09-09-2021 End: 11-08-2021 take 1 dose by inhalation once daily Stiolto Respimat 60 ACT 2.5 mcg-2.5 mcg/inh inhalation aerosol Dose = 2 puff(s), Inhalation, qDay, # 4 gram(s), 1 Refill(s), Pharmacy: [facility], MRSA pneumonia Chronic coughing, 169, cm, 09/09/21 15:37:00 EDT, Height Start Date: 09/09/21 Stop Date: 11/08/21 Status: Ordered oxyCODONE hydrochloride 5 mg oral tablet (1 source) Opioid Agonist Start: 12-08-2022 End: 12-11-2022 oxyCODONE 5 mg oral tablet ( IMMEDIATE release ) Dose : 5 mg = 1 tab(s), Oral, q6hr, PRN Pain, scale 4-10, X 3 day(s), # 12 tab(s), 0 Refill(s), 12/11/22 10:52:00 AM EDT, Pharmacy: [facility], Neck pain, 167.6, cm, 12/04/22 17:22:00 EDT, Height, 152.6, kg, 12/04/22 17:22:00 EDT, Dosing Weight Start Date: 12/08/22 Stop Date: 12/11/22 Status: Ordered pioglitazone 45 mg oral tablet (7 sources) Peroxisome Proliferator Receptor alpha Agonist, Peroxisome Proliferator Receptor gamma Agonist, Thiazolidinedione Start: 05-17-2024 pioglitazone 45 mg oral tablet Dose : 45 mg = 1 tab(s), Oral, Daily, # 90 tab(s), 1 Refill(s), Pharmacy: [facility], 169, cm, 05/17/24 10:17:00 EST, Height, kg, 05/17/24 10:17:00 EST, Dosing Weight Start Date: 05/17/24 Status: Ordered Quantity: 90.0 Unit: tab(s) Repeat number: 2 Start: 06-01-2023 pioglitazone 4 5 mg oral tablet Dose : 45 mg = 1 tab(s), Oral, Daily, # 90 tab(s), 3 Refill(s), Pharmacy: [facility], 170, cm, 05/31/23 13:52:00 EDT, Height, kg, 05/31/23 13:48:00 EDT, Dosing Weight Start Date: 06/01/23 Status: Ordered Start: 10-28-2022 Actos 45 mg or al tablet Dose : 45 mg = 1 tab(s), Oral, qDay, # 90 tab(s), 1 Refill(s), Pharmacy: [facility], DM type 2, goal HbA1c Start Date: 10/28/22 Status: Ordered Start: 02-23-2021 End: 09-21-2021 Actos 45 mg oral tablet Dose : 45 mg = 1 tab(s), Oral, qDay, # 30 tab(s), 6 Refill(s), Pharmacy: [facility], DM type 2, goal HbA1c Start Date: 02/23/21 Stop Date: 09/21/21 Status: Ordered predniSONE 20 mg oral tablet (19 sources) Start: 08-14-2024 End: 08-19-2024 predniSONE 20 mg oral tablet Dose : 40 mg = 2 tab(s), Oral, qDay, X 5 day(s), # 10 tab(s), 0 Refill(s), 08/19/24 7:03:00 PM EDT Start Date: 08/14/24 Stop Date: 08/19/24 Status: Ordered Quantity: 10.0 Unit: tab(s) Repeat number: 1 Start: 09-23-2023 End: 10-01-2023 prednisone 10mg tab (TAPER) Taper 40-30-20-10 x 2 days each dose, Oral, qDayM, Take with food/meal. No NSAIDs while on this med., # 20 tab(s), 0 Refill(s), Pharmacy: [facility], 66.3, cm, 09/23/23 8:52:00 EDT, Height, kg, 09/23/23 8:52:00 EDT, Dosing Weight Start Date: 09/23/23 Stop Date: 10/01/23 Status: Ordered Start: 08-14-2021 End: 09-13-2021 take 3 tablets by mouth once daily Prednisone 20 MG tablet Discontinued 60 mg PO DAILY August 14, 2021 12:00am September 13, 2021 1:26pm Start: 08-14-2021 End: 09-13-2021 take 60 mg by mouth once daily Prednisone Discontinued 60 MG PO DAILY August 14, 2021 12:00am September 13, 2021 1:26pm rosuvastatin calcium 40 mg oral tablet (20 sources) HMG-CoA Reductase Inhibitor Start: 01-12-2024 End: 11-13-2024 rosuvastatin 40 mg oral tablet Dose : 40 mg = 1 tab(s), Oral, qDay, # 90 tab(s), 1 Refill(s), Pharmacy: [facility], Hyperlipidemia LDL goal Start Date: 05/17/24 Stop Date: 11/13/24 Status: Ordered Quantity: 90.0 Unit: tab(s) Repeat number: 2 Indications: Hyperlipidemia, unspecified; Start: 06-19-2023 End: 12-16-2023 rosuvastatin 40 mg oral tabl et Dose : 40 mg = 1 tab(s), Oral, qDay, # 90 tab(s), 1 Refill(s), Pharmacy: [facility], Hyperlipidemia LDL goal Start Date: 06/19/23 Stop Date: 12/16/23 Status: Ordered Start: 07-25-2022 End: 01-21-2023 rosuvastatin 40 mg oral tabl et Dose : 40 mg = 1 tab(s), Oral, qDay, # 90 tab(s), 1 Refill(s), Pharmacy: [facility], Hyperlipidemia LDL goal Start Date: 07/25/22 Stop Date: 01/21/23 Status: Ordered Start: 07-02-2021 End: 12-29-2021 rosuvastatin 40 mg oral tabl et Dose : 40 mg = 1 tab(s), Oral, qDay, # 90 tab(s), 1 Refill(s), Pharmacy: [facility], Hyperlipidemia LDL goal Start Date: 07/02/21 Stop Date: 12/29/21 Status: Ordered Start: 08-18-2013 End: 08-10-2021 take 10 mg by mouth at bedtime Rosuvastatin (Crestor) 40 MG tablet Discontinued 10 mg PO AT BEDTIME August 18, 2013 12:00am August 10, 2021 11:08am valsartan 320 mg oral tablet (20 sources) Angiotensin 2 Receptor Vernon Start: 07-25-2022 Diovan 320 mg oral tablet Dose : 320 mg = 1 tab(s), Oral, qDay, # 90 tab(s), 1 Refill(s), Pharmacy: [facility], 173, cm, 07/25/22 13:56:00 EDT, Height, kg, 07/25/22 13:56:00 EDT, Dosing Weight Start Date: 07/25/22 Status: Ordered Start: 08-04-2021 take 1 tablet by kwabena once daily Valsartan 160 mg tablet Active 160 mg PO DAILY August 04, 2021 12:00am Start: 07-02-2021 Diovan 320 mg oral tablet Dose : 320 mg = 1 tab(s), Oral, qDay, # 90 tab(s), 1 Refill(s), Pharmacy: [facility], 169, cm, 07/02/21 15:31:00 EDT, Height Start Date: 07/02/21 Status: Ordered Completed/Discontinued Medications Medication Drug Class(es) Dates Sig (Normalized) Sig (Original) [id number] 200 actuat albuterol 0.09 mg/actuat metered dose inhaler (20 sources) beta2-Adrenergic Agonist Start: 03-26-2024 End: 06-24-2024 take 2 puff(s) by inhalation every six hours as needed for wheezing ProAir HFA MDI (90 mcg/inh) inhalation aerosol 2 puff(s), Inhalation, q6h, PRN as needed for wheezing, # 1 EA, 2 Refill(s), Pharmacy: [facility], Asthma, 170, cm, 02/26/24 12:58:00 EST, Height, kg, 02/26/24 12:58:00 EST, Dosing Weight Start Date: 03/26/24 Stop Date: 06/24/24 Status: Ordered Quantity: 1.0 Unit: EA Repeat number: 3 Indications: Unspecified asthma, uncomplicated; Start: 08-18-2023 End: 09-17-2023 take 2 puff(s) by inhalation every six hours as needed for wheezing ProAir HFA MDI (90 mcg/inh) inhalation aerosol 2 puff(s), Inhalation, q6h, PRN as needed for wheezing, # 1 EA, 0 Refill(s), Pharmacy: [facility], Asthma, 168, cm, 07/07/23 9:06:00 EDT, Height, kg, 08/10/23 15:08:00 EDT, Dosing Weight Start Date: 08/18/23 Stop Date: 09/17/23 Status: Ordered Start: 07-25-2022 End: 02-20-2023 take 2 puff(s) by inhalation every six hours as needed for wheezing ProAir HFA MDI (90 mcg/inh) inhalation aerosol 2 puff(s), Inhalation, q6h, PRN as needed for wheezing, # 1 EA, 6 Refill(s), Pharmacy: [facility], Asthma, 173, cm, 07/25/22 13:56:00 EDT, Height, kg, 07/25/22 13:56:00 EDT, Dosing Weight Start Date: 07/25/22 Stop Date: 02/20/23 Status: Ordered Start: 08-04-2021 take 1 puff(s) by in halation every six hours as needed Albuterol Sulfate Active 2 PUFF INHALATION EVERY 6 HOURS NEEDED August 04, 2021 4:37pm Start: 08-04-2021 Albuterol Sulf ate 90 mcg/actuation HFA aerosol inhaler Active 2 NMA INHALATION EVERY 6 HOURS NEEDED as needed for Shortness Of Breath August 04, 2021 12:00am Start: 08-04-2021 take 1 puff(s) by in halation every six hours as needed Albuterol Sulfate Active 2 PUFF INHALATION EVERY 6 HOURS NEEDED August 04, 2021 12:00am Start: 07-02-2021 End: 01-28-2022 take 2 puff(s) by inhalation every six hours as needed for wheezing ProAir HFA MDI (90 mcg/inh) inhalation aerosol 2 puff(s), Inhalation, q6h, PRN as needed for wheezing, # 1 EA, 6 Refill(s), Pharmacy: [facility], Asthma, 169, cm, 07/02/21 15:31:00 EDT, Height, kg, 07/02/21 15:31:00 EDT, Dosing Weight Start Date: 07/02/21 Stop Date: 01/28/22 Status: Ordered albuterol MDI (90 mcg/inh) CFC free inhalation aerosol (1 source) Start: 07-29-2021 End: 08-28-2021 take 2 puff(s) by inhalation every six hours albuterol MDI (90 mcg/inh) CFC free inhalation aerosol 2 puff(s), Inhalation, q6h, # 18 gram(s), 0 Refill(s), Pharmacy: [facility], Cough with sputum Decreased lung sounds, 169, cm, 07/29/21 13:21:00 EDT, Height Start Date: 07/29/21 Stop Date: 08/28/21 Status: Ordered azithromycin 250 mg oral tablet (19 sources) Macrolide Antimicrobial Start: 08-04-2021 End: 08-10-2021 take 1 tablet by mouth once daily Azithromycin 250 mg tablet Discontinued 250 mg PO DAILY August 04, 2021 12:00am August 10, 2021 11:07am [id number] 0.3 ml EPINEPHrine 1 mg/ml auto-injector (20 sources) alpha-Adrenergic Agonist, beta-Adrenergic Agonist, Catecholamine Start: 02-28-2024 EpiPen 2-Jamal 0.3 mg injectable kit Dose : 0.3 mg =, Subcutaneous, AsDirected, PRN Allergic reaction, # 1 kit(s), 1 Refill(s), Pharmacy: [facility], 170, cm, 02/26/24 12:58:00 EST, Height, kg, 02/26/24 12:58:00 EST, Dosing Weight Start Date: 02/28/24 Status: Ordered Quantity: 1.0 Unit: kit(s) Repeat number: 2 Start: 11-08-2023 EpiPen 2-Jamal 0 .3 mg injectable kit Dose : 0.3 mg =, Subcutaneous, AsDirected, PRN Allergic reaction, # 1 kit(s), 1 Refill(s), Pharmacy: [facility], 170, cm, 09/25/23 13:05:00 EDT, Height, kg, 10/18/23 14:18:00 EDT, Dosing Weight Start Date: 11/08/23 Status: Ordered Start: 07-18-2023 EpiPen 2-Jamal 0 .3 mg injectable kit Dose : 0.3 mg =, Subcutaneous, AsDirected, PRN Allergic reaction, # 1 kit(s), 1 Refill(s), Pharmacy: [facility], 168, cm, 07/07/23 9:06:00 EDT, Height, kg, 07/07/23 9:06:00 EDT, Dosing Weight Start Date: 07/18/23 Status: Ordered Start: 08-16-2022 End: 03-19-2023 EpiPen 2-Jamal 0.3 mg injectab le kit Dose : 0.3 mg =, Subcutaneous, AsDirected, PRN Allergic reaction, # 1 kit(s), 1 Refill(s), 03/19/23 11:00:00 AM EST, Pharmacy: [facility], 173, cm, 08/04/22 13:41:00 EDT, Height, kg, 08/04/22 13:41:00 EDT, Dosing Weight Start Date: 08/16/22 Stop Date: 03/19/23 Status: Ordered Start: 10-07-2020 Epinephrine 0. 3 mg/0.3 mL auto-injector Active 0.3 mg IM Q15M as needed for anaphylaxis October 07, 2020 12:00am for 2 doses Fluticasone Propionate (Armo newman Digihaler) 232 mcg/actuation aero powdr breath act w/sensor (13 sources) Start: 09-30-2021 End: 10-05-2021 Fluticasone Propionate (Armonair Digihaler) 232 mcg/actuation aero powdr breath act w/sensor Discontinued 1 NMA INHALATION TWICE A DAY 1 September 30, 2021 12:00am October 05, 2021 5:35am Start: 09-30-2021 End: 10-05-2021 Fluticasone Propionate (Armo newman Digihaler) 232 mcg/actuation aero powdr breath act w/sensor Discontinued 1 INH INHALATION TWICE A DAY September 29, 2021 11:00pm October 05, 2021 4:35am Start: 09-30-2021 End: 10-05-2021 Fluticasone Propionate (Armo newman Digihaler) 232 mcg/actuation aero powdr breath act w/sensor Discontinued 1 INH INHALATION TWICE A DAY September 30, 2021 12:00am October 05, 2021 5:35am Fluticasone Propionate (Flov ent Hfa) 220 mcg/actuation HFA aerosol inhaler (12 sources) Start: 10-25-2021 End: 05-13-2022 Fluticasone Propionate (Flov ent Hfa) 220 mcg/actuation HFA aerosol inhaler Discontinued 2 NMA INHALATION TWICE A DAY October 25, 2021 12:00am May 13, 2022 3:08pm administer with spacer Start: 10-25-2021 End: 05-13-2022 Fluticasone Propionate (Flov ent Hfa) 220 mcg/actuation HFA aerosol inhaler Discontinued 2 INH INHALATION TWICE A DAY October 25, 2021 12:00am May 13, 2022 3:08pm administer with spacer Start: 10-25-2021 End: 05-13-2022 Fluticasone Propionate (Flov ent Hfa) 220 mcg/actuation HFA aerosol inhaler Discontinued 2 INH INHALATION TWICE A DAY October 24, 2021 11:00pm May 13, 2022 2:08pm administer with spacer Start: 10-25-2021 Fluticasone Pr opionate (Flovent Hfa) 220 mcg/actuation HFA aerosol inhaler Active 2 INH INHALATION TWICE A DAY October 24, 2021 11:00pm administer with spacer Start: 10-25-2021 Fluticasone Pr opionate (Flovent Hfa) 220 mcg/actuation HFA aerosol inhaler Active 2 INH INHALATION TWICE A DAY October 25, 2021 12:00am administer with spacer 12 hr guaiFENesin 600 mg extended release oral tablet (16 sources) Start: 02-28-2024 End: 06-27-2024 Mucinex 600 mg oral tablet, extended release Dose : 600 mg = 1 tab(s), Oral, q12h, # 60 tab(s), 3 Refill(s), Pharmacy: [facility], 170, cm, 02/26/24 12:58:00 EST, Height, kg, 02/26/24 12:58:00 EST, Dosing Weight Start Date: 02/28/24 Stop Date: 06/27/24 Status: Ordered Quantity: 60.0 Unit: tab(s) Repeat number: 4 Start: 09-19-2022 Mucinex 600 mg oral tablet, extended release Dose : 600 mg = 1 tab(s), Oral, q12h, # 60 tab(s), 5 Refill(s), Pharmacy: [facility], 173, cm, 08/04/22 13:41:00 EDT, Height Start Date: 09/19/22 Status: Ordered Start: 08-04-2021 take 1 tablet by kwabena th every twelve hours as needed, then take 1 tablet by mouth every twelve hours as needed Guaifenesin (Mucus Relief Er) 600 mg tablet extended release 12hr Active 600 MG PO EVERY 12 HOURS NEEDED August 03, 2021 11:00pm 3 ml insulin glargine 100 unt/ml pen injector (19 sources) Insulin Analog Start: 08-16-2024 Lantus Solosta r Pen 100 units/mL 3 mL Pen See Instructions, Inject 65 units SubQ every morning and 70 units SubQ at bedtime, # 45 mL, 6 Refill(s), Pharmacy: [facility], 167.6, cm, 08/14/24 18:14:00 EDT, Height, kg, 08/14/24 18:14:00 EDT, Dosing Weight Start Date: 08/16/24 Status: Ordered Quantity: 45.0 Unit: mL Repeat number: 7 Start: 12-14-2023 Lantus Solosta r Pen 100 units/mL 3 mL Pen See Instructions, 60 UNITS TWICE DAILY, # 90 mL, 1 Refill(s), Pharmacy: [facility], 168, cm, 12/13/23 13:57:00 EDT, Height, kg, 12/13/23 13:57:00 EDT, Dosing Weight Start Date: 12/14/23 Status: Ordered Start: 06-19-2023 Lantus Solosta r Pen 100 units/mL 3 mL Pen See Instructions, 60 UNITS TWICE DAILY Start Date: 06/19/23 Status: Ordered Start: 10-28-2022 End: 04-26-2023 inject 1 dose by subcutaneous injection twice daily Lantus Solostar Pen 100 units/mL 3 mL Pen Dose : 50 unit(s) =, Subcutaneous, BID, QS for 90 day supply, # 15 mL, 1 Refill(s), Pharmacy: [facility], 173, cm, 10/28/22 13:51:00 EDT, Height, kg, 10/28/22 13:51:00 EDT, Dosing Weight Start Date: 10/28/22 Stop Date: 04/26/23 Status: Ordered Start: 07-02-2021 End: 12-29-2021 inject 1 dose by subcutaneous injection twice daily Lantus Solostar Pen 100 units/mL 3 mL Pen Dose : 60 unit(s) =, Subcutaneous, BID, QS for 30 day supply, # 60 mL, 1 Refill(s), Pharmacy: [facility], 169, cm, 07/02/21 15:31:00 EDT, Height, kg, 07/02/21 15:31:00 EDT, Dosing Weight Start Date: 07/02/21 Stop Date: 12/29/21 Status: Ordered Start: 08-18-2013 End: 08-10-2021 Insulin Glargine (Lantus Rona ostar Pen) 100 UNITS/ML insulin pen Discontinued 55 U SC TWICE A DAY August 18, 2013 12:00am August 10, 2021 11:08am Start: 08-18-2013 End: 08-10-2021 Insulin Glargine (Lantus Rona ostar Pen) 100 UNITS/ML insulin pen Discontinued 55 UNITS SC TWICE A DAY August 18, 2013 12:00am August 10, 2021 11:08am Insulin Glargine (Lantus Solostar Pen) 100 UNITS/ML insulin pen (6 sources) Start: 08-18-2013 End: 08-10-2021 Insulin Glargine (Lantus Rona ostar Pen) 100 UNITS/ML insulin pen Discontinued 55 UNITS SC TWICE A DAY August 18, 2013 5:24pm August 10, 2021 11:08am Start: 08-18-2013 Insulin Glargi ne (Lantus Solostar Pen) 100 UNITS/ML insulin pen Active 55 UNITS SC TWICE A DAY August 18, 2013 5:24pm Start: 08-18-2013 End: 08-10-2021 Insulin Glargine (Lantus Rona ostar Pen) 100 UNITS/ML insulin pen Discontinued 55 UNITS SC TWICE A DAY August 18, 2013 12:00am August 10, 2021 11:08am Problems Active Problems Problem Classification Problem Date Documented Date Episodic/Chronic Administrative/social admission (3 sources) Poor historian 02-19-2024 Episodic Allergic reactions (5 sources) Contact dermatitis; Translations: [Allergic disposition] Onset: 08-14-2024 12-30-2023 Episodic Asthma (3 sources) Exacerbation of asthma; Translations: [Asthma] 09-09-2021 Chronic Bacterial infection; unspecified site (20 sources) Bacteremia due to Methicillin resistant Staphylococcus aureus; Translations: [Bacteremia] Episodic Chronic obstructive pulmonary disease and bronchiectasis (7 sources) Asthma-chronic obstructive pulmonary disease overlap syndrome; Translations: [Chronic obstructive lung disease] 05-05-2022 Chronic Comment on above: 09/2021 [facility] FUNCTION: FINDINGS: FVC is reduced to 58, FEV1 reduced to 53 and FEV1/FVC ratio reduced at 70. No significant bronchodilator response. TLC reduced at 67, RV normal at 92, RV/TLC ratio elevated at 44. DLCO normal at 117. 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 09/2021 [facility] FUNCTION: FINDINGS: FVC is reduced to 58, FEV1 reduced to 53 and FEV1/FVC ratio reduced at 70. No significant bronchodilator response. TLC reduced at 67, RV normal at 92, RV/TLC ratio elevated at 44. DLCO normal at 117. 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 Deficiency and other anemia (6 sources) Iron deficiency anemia 01-25-2022 Episodic Diabetes mellitus with complications (13 sources) Polyneuropathy due to diabetes mellitus; Translations: [Hypoglycemic disorder] 08-06-2019 Chronic Diabetes mellitus without complication (20 sources) Type 2 diabetes mellitus; Translations: [Type 2 diabetes mellitus without complications] Onset: 08-16-2024 08-06-2019 Chronic Diseases of white blood cells (1 source) Leukocytosis; Translations: [Elevated white blood cell count, unspecified] Chronic Disorders of lipid metabolism (20 sources) Hyperlipidemia; Translations: [Hyperlipidemia, unspecified] Onset: 12-04-2022 08-06-2019 Chronic Esophageal disorders (1 source) Gastroesophageal reflux disease without esophagitis; Translations: [Gastro-esophageal reflux disease without esophagitis] Chronic Essential hypertension (20 sources) Hypertensive disorder; Translations: [Essential hypertension] Onset: 12-04-2022 08-06-2019 Chronic Hemorrhoids (7 sources) Hemorrhoids 12-17-2019 Episodic Inflammation; infection of eye (except that caused by tuberculosis or sexually transmitteddisease) (4 sources) Acute infectious conjunctivitis 07-07-2023 Episodic Nutritional deficiencies (8 sources) Vitamin D deficiency; Translations: [Vitamin D deficiency, unspecified] Onset: 10-30-2024 11-17-2020 Chronic Osteoarthritis (7 sources) Osteoarthritis of multiple joints 11-01-2018 Chronic Other aftercare (1 source) Long-term current use of insulin; Translations: [super[employer] (current) use of insulin] Episodic Other aftercare (1 source) Post-discharge follow-up 12-19-2022 Episodic Other and ill-defined heart disease (7 sources) Cardiomegaly 09-09-2021 Chronic Other circulatory disease (2 sources) Disorder of arteries and arterioles, unspecified; Translations: [Unspecified disorders of arteries and arterioles] 07-20-2022 Chronic Other circulatory disease (7 sources) H/O: cardiovascular disease 11-01-2018 Episodic Other circulatory disease (7 sources) H/O: hypertension; Translations: [Personal history of other diseases of the circulatory system] 07-11-2022 Episodic Other circulatory disease (2 sources) Personal history of other diseases of the circulatory system; Translations: [Personal history of other diseases of circulatory system] 07-11-2022 Episodic Other circulatory disease (1 source) History of transient ischemic attack; Translations: [Personal history of transient ischemic attack (TIA), and cerebral infarction without residual deficits] Episodic Other connective tissue disease (6 sources) Pain in right lower limb 05-17-2022 Episodic Other diseases of veins and lymphatics (7 sources) Peripheral venous insufficiency 11-01-2018 Episodic Other hematologic conditions (7 sources) History of anemia 11-01-2018 Episodic Other liver diseases (4 sources) Portal hypertension 06-07-2022 Chronic Other lower respiratory disease (19 sources) Dyspnea; Translations: [Dyspnea, unspecified] 12-07-2021 Episodic Other lower respiratory disease (19 sources) Hypoxia; Translations: [Hypoxemia] 12-07-2021 Episodic Other lower respiratory disease (7 sources) Dyspnea, unspecified; Translations: [Other respiratory abnormalities] Episodic Other lower respiratory disease (7 sources) Hypoxemia; Translations: [Hypoxemia] Episodic Other lower respiratory disease (20 sources) Cough; Translations: [Cough] 12-07-2021 Episodic Other lower respiratory disease (1 source) Chronic cough 09-09-2021 Episodic Other nervous system disorders (7 sources) Numbness and tingling sensation of skin; Translations: [Anesthesia of skin] 07-11-2022 Episodic Other nervous system disorders (5 sources) Anesthesia of skin; Translations: [Disturbance of skin sensation] 07-11-2022 Episodic Other nutritional; endocrine; and metabolic disorders (8 sources) Body mass index 40+ - severely obese; Translations: [Body mass index (BMI) 50.0-59.9, adult] 08-06-2020 Chronic Other nutritional; endocrine; and metabolic disorders (20 sources) Morbid obesity; Translations: [Morbid (severe) obesity due to excess calories] 12-07-2021 Chronic Other nutritional; endocrine; and metabolic disorders (2 sources) Morbid (severe) obesity due to excess calories; Translations: [Morbid obesity] 07-11-2022 Chronic Other nutritional; endocrine; and metabolic disorders (7 sources) H/O: diabetes mellitus; Translations: [Personal history of other endocrine, nutritional and metabolic disease] Episodic Other nutritional; endocrine; and metabolic disorders (11 sources) Personal history of other endocrine, nutritional and metabolic disease; Translations: [Personal history of other endocrine, metabolic, and immunity disorders] Episodic Other nutritional; endocrine; and metabolic disorders (7 sources) History of hypercholesterolemia; Translations: [Personal history of other endocrine, nutritional and metabolic disease] 07-11-2022 Episodic Other nutritional; endocrine; and metabolic disorders (7 sources) History of diabetes mellitus type 2; Translations: [Personal history of other endocrine, nutritional and metabolic disease] 07-11-2022 Episodic Other screening for suspected conditions (not mental disorders or infectious disease) (14 sources) Computed tomography result abnormal; Translations: [Imaging of thorax abnormal] 09-09-2021 Chronic Other screening for suspected conditions (not mental disorders or infectious disease) (5 sources) Impaired left ventricular function 09-09-2021 Episodic Comment on above: Echocardiogram summa ry: 08/07/2021 FINDINGS: 1. The estimated ejection fraction is 55%. 2. No evidence of diastolic dysfunction noted Other skin disorders (1 source) Hair follicle disorder; Translations: [Follicular disorder, unspecified] Episodic Other upper respiratory disease (7 sources) Seasonal allergy 05-08-2020 Chronic Other upper respiratory disease (3 sources) Allergic rhinitis 02-19-2024 Chronic Otitis media and related conditions (3 sources) Otitis media 01-12-2024 Episodic Peripheral and visceral atherosclerosis (13 sources) Atherosclerosis of aorta; Translations: [Peripheral vascular disease] 09-09-2021 Chronic Comment on above: Echocardiogram summa ry: 08/07/2021 FINDINGS: 1. The estimated ejection fraction is 55%. 2. 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; Translations: [Dependence on other enabling machines and devices] 12-07-2021 Chronic Residual codes; unclassified (6 sources) Edema of right lower leg 05-17-2022 Episodic Residual codes; unclassified (4 sources) Peripheral edema 06-19-2023 Episodic Residual codes; unclassified (2 sources) At risk for infection 04-01-2024 Episodic Residual codes; unclassified (2 sources) Bilateral lower limb edema 05-17-2024 Episodic Residual codes; unclassified (1 source) Procedure and treatment not carried out due to patient leaving prior to being seen by health care provider; Translations: [Procedure and treatment not carried out due to patient leaving prior to being seen by health care provider] Onset: 08-20-2024 Episodic Respiratory failure; insufficiency; arrest (adult) (20 sources) Acute respiratory failure; Translations: [Acute respiratory failure with hypoxia] Episodic Skin and subcutaneous tissue infections (16 sources) Cellulitis of neck; Translations: [Cellulitis of neck] Onset: 12-04-2022 Episodic Spondylosis; intervertebral disc disorders; other back problems (1 source) Neck pain; Translations: [Cervicalgia] Onset: 12-08-2022 Episodic Transient cerebral ischemia (4 sources) Transient cerebral ischemia; Translations: [Transient cerebral ischemic attack, unspecified] 07-11-2022 Chronic Unclassified (7 sources) Non-smoker 07-02-2021 Unclassified (14 sources) Patient encounter status 12-17-2019 Unclassified (6 sources) Pain of joint of knee 04-15-2022 Unclassified (6 sources) Pain of knee region 06-07-2022 Past or Other Problems Problem Classification Problem Date Documented Da te Episodic/Chronic Other upper respiratory infections (5 sources) Acute bacterial sinusitis; Translations: [Acute pharyngitis, unspecified] Onset: 02-19-2024 01-12-2024 Episodic Results Test Name Value Interpretation Reference Range Facility Albumin to globulin ratioOrd ered By: BOOGIE ZALDIVAR on 04-29-2024 Albumin/Globulin [Mass ratio] 0.9 {ratio} 0.9-2.4 [facility] Bilirubin, totalOrdered By: BOOGIE ZALDIVAR on 04-29-2024 Bilirubin [Mass/Vol] 1.90 mg/dL High 0.20-1.00 [facility] Comment on above: For patients on eltr ombopag therapy, use of Dimension Spencer TBIL is not recommended. Blood urea nitrogen (BUN)/cr eatinine ratioOrdered By: BOOGIE ZALDIVAR on 04-29-2024 Urea nitrogen/Creatinine [Mass ratio] 21.1 mg/mg High 10-20 [facility] Carbon dioxide measurementOr dered By: BOOGIE ZALDIVAR on 04-29-2024 CO2 [Moles/Vol] 27.0 mmol/L 21.0-32.0 [facility] Chloride measurementOrdered By: BOOGIE ZALDIVAR on 04-29-2024 Chloride [Moles/Vol] 106 mmol/L 98-107 [facility] Comprehensive Metabolic Prof ilon 04-29-2024 Albumin [Mass/Vol] 3.3 g/dL Normal 3.2-5.0 [facility] Comment on above: Performed By: #### L [id number], L501.9910, L500.4100, L502.0250, L500.4050 #### [facility] [address] [place], [address] Albumin/Globulin [Mass ratio] 0.9 {ratio} Normal 0.9-2.4 [facility] Comment on above: Performed By: #### L [id number], L501.9910, L500.4100, L502.0250, L500.4050 #### [facility] [address] [place], [address] ALK P 128 U/L High 45-117 [facility] Comment on above: Performed By: #### L [id number], L501.9910, L500.4100, L502.0250, L500.4050 #### [facility] [address] [place], [address] ALT [Catalytic activity/Vol] 38 U/L Normal 16-61 [facility] Comment on above: Performed By: #### L [id number], L501.9910, L500.4100, L502.0250, L500.4050 #### [facility] [address] [place], [address] AST [Catalytic activity/Vol] 20 U/L Normal 15-37 [facility] Comment on above: Performed By: #### L [id number], L501.9910, L500.4100, L502.0250, L500.4050 #### [facility] [address] [place], [address] Bilirubin [Mass/Vol] 1.90 mg/dL High 0.20-1.00 [facility] Comment on above: Result Comment: For patients on eltrombopag therapy, use of Dimension Spencer TBIL is not recommended. Performed By: #### L [id number], L501.9910, L500.4100, L502.0250, L500.4050 #### [facility] [address] [place], [address] BUN/CRE 21.1 RATIO High 10-20 [facility] Comment on above: Performed By: #### L 501.9985, L501.9910, L500.4100, L502.0250, L500.4050 #### [facility] [address] [place], [address] CA,Total 8.7 mg/dL Normal 8.5-10.1 [facility] Comment on above: Performed By: #### L [id number], L501.9910, L500.4100, L502.0250, L500.4050 #### [facility] [address] [place], [address] Chloride [Moles/Vol] 106 mmol/L Normal 98-107 [facility] Comment on above: Performed By: #### L [id number], L501.9910, L500.4100, L502.0250, L500.4050 #### [facility] [address] [place], [address] CO2 [Moles/Vol] 27.0 mmol/L Normal 21.0-32.0 [facility] Comment on above: Performed By: #### L [id number], L501.9910, L500.4100, L502.0250, L500.4050 #### [facility] [address] [facility] [address] Creatinine [Mass/Vol] 0.85 mg/dL Normal 0.70-1.30 [facility] Comment on above: Result Comment: The validity of the calculated GFR GFRAA in patients over 70 years has not been determined. Clinical correlation is essential. Performed By: #### L 501.9985, L501.9910, L500.4100, L502.0250, L500.4050 #### [facility] [address] [facility] [address] EST GFR - AA 120 mL/min Normal >60 [facility] Comment on above: Result Comment: Afri can English GFR Calc Performed By: #### L [id number], L501.9910, L500.4100, L502.0250, L500.4050 #### [facility] [address] [facility] [address] GAP 8 Normal 5-15 [facility] Comment on above: Performed By: #### L 501.9985, L501.9910, L500.4100, L502.0250, L500.4050 #### [facility] [address] [facility] [address] GFR/1.73 sq M.predicted among non-blacks MDRD (S/P/Bld) [Vol rate/Area] 99 mL/min/{1.73_m2} Normal >60 [facility] Comment on above: Result Comment: Non- GFR Calc Performed By: #### L 501.9985, L501.9910, L500.4100, L502.0250, L500.4050 #### [facility] [address] [place], [address] Globulin (S) [Mass/Vol] 3.6 g/dL Normal 2.2-4.2 [facility] Comment on above: Performed By: #### L [id number], L501.9910, L500.4100, L502.0250, L500.4050 #### [facility] [address] [place], [address] Glucose [Mass/Vol] 175 mg/dL High 74-106 [facility] Comment on above: Result Comment: Fast ing Glucose result greater than or equal to 126 mg/dL suggests DIABETES MELLITUS per A.D.A. criteria. Performed By: #### L 501.9985, L501.9910, L500.4100, L502.0250, L500.4050 #### [facility] [address] [place], [address] Potassium [Moles/Vol] 3.8 mmol/L Normal 3.5-5.1 [facility] Comment on above: Performed By: #### L 501.9985, L501.9910, L500.4100, L502.0250, L500.4050 #### [facility] [address] [place], [address] Sodium [Moles/Vol] 141 mmol/L Normal 136-145 [facility] Comment on above: Performed By: #### L 501.9985, L501.9910, L500.4100, L502.0250, L500.4050 #### [facility] [address] [place], [address] T PROT 6.9 g/dL Normal 6.4-8.2 [facility] Comment on above: Performed By: #### L [id number], L501.9910, L500.4100, L502.0250, L500.4050 #### [facility] [address] [place], [place], [address] Urea nitrogen [Mass/Vol] 18 mg/dL Normal 7-18 [facility] Comment on above: Performed By: #### L 501.9985, L501.9910, L500.4100, L502.0250, L500.4050 #### [facility] [address] [place], [place], [id number] Glomerular filtration rate ( GFR) estimationOrdered By: BOOGIE ZALDIVAR on 04-29-2024 GFR/1.73 sq M.predicted among non-blacks MDRD (S/P/Bld) [Vol rate/Area] 99 mL/min/{1.73_m2} >60 [facility] Comment on above: Non- GFR Calc Glucose measurementOrdered B y: BOOGIE ZALDIVAR on 04-29-2024 Glucose [Mass/Vol] 175 mg/dL High 74-106 [facility] Comment on above: Fasting Glucose resu lt greater than or equal to 126 mg/dL suggests DIABETES MELLITUS per A.D.A. criteria. Hemoglobin A1con 04-29-2024 HbA1c (Bld) [Mass fraction] 9.5 % High 3.8-5.6 [facility] Comment on above: Result Comment: Norm al < 5.7 % Prediabetic 5.7 - 6.4 % Diabetic >or= 6.5 % Please note range changes. Performed By: #### L 501.9985, L501.9910, L500.4100, L502.0250, L500.4050 #### [facility] [address] [place], [place], [id number] Hemoglobin A1c percentageOrd ered By: BOOGIE ZALDIVAR on 04-29-2024 HbA1c (Bld) [Mass fraction] 9.5 % High 3.8-5.6 [facility] Comment on above: Normal < 5.7 % Predi abetic 5.7 - 6.4 % Diabetic >or= 6.5 % Please note range changes. High density lipoprotein (HD L) measurementOrdered By: BOOGIE ZALDIVAR on 04-29-2024 Cholesterol in HDL [Mass/Vol] 51 mg/dL >40 [facility] Comment on above: The drugs N-Acetylcy steine and Metamizole may falsely depress this assay. Reference Range HDL <40 mg/dL Low HDL Cholesterol HDL >or= 60 mg/dL High HDL Cholesterol Laboratory - Chemistry and C hemistry - challengeOrdered By: BOOGIE ZALDIVAR on 04-29-2024 AST [Catalytic activity/Vol] 20 U/L 15-37 [facility] Lipid Profileon 04-29-2024 Cholesterol [Mass/Vol] 191 mg/dL Normal 200 [facility] Comment on above: Result Comment: <200 mg/dL Desirable 200-240 mg/dL Borderline >240 mg/dL High Risk Performed By: #### L 501.9985, L501.9910, L500.4100, L502.0250, L500.4050 #### [facility] [address] [place], [address] Cholesterol in HDL [Mass/Vol] 51 mg/dL Normal [facility] Comment on above: Result Comment: The drugs N-Acetylcysteine and Metamizole may falsely depress this assay. Reference Range HDL <40 mg/dL Low HDL Cholesterol HDL >or= 60 mg/dL High HDL Cholesterol Performed By: #### L 501.9985, L501.9910, L500.4100, L502.0250, L500.4050 #### [facility] [address] [place], [address] Cholesterol in LDL [Mass/Vol] 121 mg/dL Normal 0-130 [facility] Comment on above: Performed By: #### L 501.9985, L501.9910, L500.4100, L502.0250, L500.4050 #### [facility] [address] [place], [address] Cholesterol in VLDL [Mass/Vol] 19 mg/dL Normal 5-40 [facility] Comment on above: Performed By: #### L 501.9985, L501.9910, L500.4100, L502.0250, L500.4050 #### [facility] [address] [place], [address] Triglyceride [Mass/Vol] 97 mg/dL Normal [facility] Comment on above: Result Comment: The drugs N-Acetylcysteine and Metamizole may falsely depress this assay. Serum Triglycerides Reference Interval Normal <150 mg/dL Borderline high 150 - 199 mg/dL High 200 - 499 mg/dL Very High > or = 500 mg/dL Performed By: #### L 501.9985, L501.9910, L500.4100, L502.0250, L500.4050 #### [facility] [address] [place], [address] Low density lipoprotein (LDL ) cholesterol measurementOrdered By: BOOGIE ZALDIVAR on 04-29-2024 Cholesterol in LDL [Mass/Vol] 121 mg/dL 0-130 [facility] Microalb:Creat Ratio,Random URon 04-29-2024 Creatinine [Mass/Vol] 173.00 mg/dL Normal NO RAN GE EST. [facility] Comment on above: Performed By: #### L 501.9985, L501.9910, L500.4100, L502.0250, L500.4050 #### [facility] [address] [place], [address] MALB:CRE 23.4 mg/g CRE Normal <30 mg/g CRE [facility] Comment on above: Performed By: #### L 501.9985, L501.9910, L500.4100, L502.0250, L500.4050 #### [facility] [address] [place], [address] MICROALBUMIN,UR 40.5 mg/L Normal NO RANGE EST. [facility] Comment on above: Performed By: #### L 501.9985, L501.9910, L500.4100, L502.0250, L500.4050 #### [facility] [address] [place], [place], [id number] PSA,Total - Annual Screenon 04-29-2024 PSA,TOT SCREEN 0.84 ng/mL Normal 0.00-4.00 [facility] Comment on above: Result Comment: This test was performed using the TPSA assay method for the [employer] chemistry system. Values obtained with different assay methods cannot be used interchangably. When changing PSA assays in the course of monitoring a patient, additional sequential testing should be carried out to confirm baseline values. Performed By: #### L 501.9985, L501.9910, L500.4100, L502.0250, L500.4050 #### [facility] [address] [place], [place], [id number] Potassium measurementOrdered By: BOOGIE ZALDIVAR on 04-29-2024 Potassium [Moles/Vol] 3.8 mmol/L 3.5-5.1 [facility] Serum anion gap measurementO rdered By: BOOGIE ZALDIVAR on 04-29-2024 Anion gap [Moles/Vol] 8 mmol/L 5-15 [facility] Serum globulin measurementOr dered By: BOOGIE ZALDIVAR on 04-29-2024 Globulin (S) [Mass/Vol] 3.6 g/dL 2.2-4.2 [facility] Serum or plasma alanine troy otransferase (ALT) measurementOrdered By: BOOGIE ZALDIVAR on 04-29-2024 ALT [Catalytic activity/Vol] 38 U/L 16-61 [facility] Serum or plasma albumin david urement (mass/volume)Ordered By: BOOGIE ZALDIVAR on 04-29-2024 Albumin [Mass/Vol] 3.3 g/dL 3.2-5.0 [facility] Serum or plasma alkaline srikanth sphatase measurementOrdered By: BOOGIE ZALDIVAR on 04-29-2024 ALP [Catalytic activity/Vol] 128 U/L High 45-117 [facility] Serum or plasma calcium david urement (mass/volume)Ordered By: BOOGIE ZALDIVAR on 04-29-2024 Calcium [Mass/Vol] 8.7 mg/dL 8.5-10.1 [facility] Serum or plasma cholesterol measurement (mass/volume)Ordered By: BOOGIE ZALDIVAR on 04-29-2024 Cholesterol [Mass/Vol] 191 mg/dL <200 [facility] Comment on above: <200 mg/dL Desirable 200-240 mg/dL Borderline >240 mg/dL High Risk Serum or plasma creatinine m easurement (mass/volume)Ordered By: BOOGIE ZALDIVAR on 04-29-2024 Creatinine [Mass/Vol] 0.85 mg/dL 0.70-1.30 [facility] Comment on above: The validity of the calculated GFR & GFRAA in patients over 70 years has not been determined. Clinical correlation is essential. Serum or plasma urea nitroge n measurement (mass/volume)Ordered By: BOOGIE ZALDIVAR on 04-29-2024 Urea nitrogen [Mass/Vol] 18 mg/dL 7-18 [facility] Sodium levelOrdered By: FAY ZALDIVAR on 04-29-2024 Sodium [Moles/Vol] 141 mmol/L 136-145 [facility] Total proteinOrdered By: BERNIE ZALDIVAR on 04-29-2024 Protein [Mass/Vol] 6.9 g/dL 6.4-8.2 [facility] Triglycerides measurementOrd ered By: BOOGIE ZALDIVAR on 04-29-2024 Triglyceride [Mass/Vol] 97 mg/dL <199 [facility] Comment on above: The drugs N-Acetylcy steine and Metamizole may falsely depress this assay.Serum Triglycerides Reference Interval Normal <150 mg/dL Borderline high 150 - 199 mg/dL High 200 - 499 mg/dL Very High > or = 500 mg/dL Urine creatinine measurement (mass/volume)Ordered By: BOOGIE ZALDIVAR on 04-29-2024 Creatinine (U) [Mass/Vol] 173.00 mg/dL NO RANGE EST. [facility] Very low density lipoprotein (VLDL) cholesterol measurementOrdered By: BOOGIE ZALDIVAR on 04-29-2024 Very low density lipoprotein (VLDL) cholesterol measurement 19 mg/dL 5-40 [facility] LABORATORYOrdered By: Elton son on 02-19-2024 Group A Strep PCR Int Negative Results: Negative for Streptococcus pyogenes by PCR. A negative test result does not exclude the possibility of infection because the test result may be affected by improper specimen collection, technical error, sample mix-up, or because the number of organisms in the sample is below the limit of detection of the test.The Xpert Xpress Strep A test should not be used as the sole basis for treatment or other patient management decisions. The Xpert Xpress Strep A test does not differentiate asymptomatic carriers of Group A streptococci from those exhibiting streptococcal infection. The results from the Xpert Xpress Strep A test should be interpreted in conjunction with other laboratory and clinical data available to the clinician.The Xpert Xpress Strep A Assay is a real-time polymerase chain reaction (PCR) based qualitative in vitro diagnostic test for the direct detection of Streptococcus pyogenes (Group A Beta hemolytic Streptococcus) in throat swab specimens from patients with signs and symptoms of pharyngitis.The assay is not intended to monitor treatment for Group A Streptococcus infections. Invalid Interpretation Code AO Auto Urine SS S. pyogenes DNA TERRANCE+probe Ql (Throat) Not Detected (02/19/24 1:39 PM) Normal Not Detected AO Auto Urine SS STREPAon 02-19-2024 Group A Strep PCR Not detected Normal Not Detected [facility] Comment on above: Performed By: #### S TREPA #### [facility] [address] [place] [id number] Group A Strep PCR Int Normal [facility] Comment on above: Result Comment: Nega tive Results: Negative for Streptococcus pyogenes by PCR. A negative test result does not exclude the possibility of infection because the test result may be affected by improper specimen collection, technical error, sample mix-up, or because the number of organisms in the sample is below the limit of detection of the test. The Xpert Xpress Strep A test should not be used as the sole basis for treatment or other patient management decisions. The Xpert Xpress Strep A test does not differentiate asymptomatic carriers of Group A streptococci from those exhibiting streptococcal infection. The results from the Xpert Xpress Strep A test should be interpreted in conjunction with other laboratory and clinical data available to the clinician. The Xpert Xpress Strep A Assay is a real-time polymerase chain reaction (PCR) based qualitative in vitro diagnostic test for the direct detection of Streptococcus pyogenes (Group A Beta hemolytic Streptococcus) in throat swab specimens from patients with signs and symptoms of pharyngitis. The assay is not intended to monitor treatment for Group A Streptococcus infections. See Interp Performed By: #### S CARLOS #### [place] [address] Basophil percentageOrdered B y: David Cummins on 06-15-2023 Bilirubin [Mass/Vol] 1.70 mg/dL 0.20-1.00 [facility] Comment on above: For patients on eltr ombopag therapy, use of Dimension Spencer TBIL is not recommended. Chloride [Moles/Vol] 108 mmol/L 98-107 [facility] Glucose [Mass/Vol] 226 mg/dL 74-106 [facility] Comment on above: Glucose result great er than or equal to 200 mg/dLsuggests DIABETES MELLITUS per A.D.A. criteria. Potassium [Moles/Vol] 3.7 mmol/L 3.5-5.1 [facility] Protein [Mass/Vol] 6.8 g/dL 6.4-8.2 [facility] Sodium [Moles/Vol] 139 mmol/L 136-145 [facility] Laboratory - Chemistry and C hemistry - challengeOrdered By: David Cummins on 06-15-2023 Albumin/Globulin [Mass ratio] 1.1 {ratio} 0.9-2.4 [facility] ALP [Catalytic activity/Vol] 112 U/L 45-117 [facility] ALT [Catalytic activity/Vol] 28 U/L 16-61 [facility] CO2 [Moles/Vol] 25.0 mmol/L 21.0-32.0 [facility] Globulin (S) [Mass/Vol] 3.3 g/dL 2.2-4.2 [facility] Urea nitrogen/Creatinine [Mass ratio] 10.4 mg/mg 10-20 [facility] No Panel InformationOrdered By: David Cummins on 06-15-2023 Estimated GFR (MDRD) Amer 136 mL/min >60 [facility] Comment on above: GFR Calc Estimated GFR (MDRD) Non-Af Amer 113 mL/min >60 [facility] Comment on above: Non- GFR Calc Urine Microalbumin/Creatinine Ratio 19.3 mg/g CRE <30 [facility] Serum or plasma calcium david urement (mass/volume)Ordered By: David Cummins on 06-15-2023 Calcium [Mass/Vol] 8.4 mg/dL 8.5-10.1 [facility] Serum or plasma creatinine m easurement (mass/volume)Ordered By: David Cummins on 06-15-2023 Creatinine [Mass/Vol] 0.77 mg/dL 0.70-1.30 [facility] Comment on above: The validity of the calculated GFR & GFRAA in patients over 70 years has not been determined. Clinical correlation is essential. Serum or plasma urea nitroge n measurement (mass/volume)Ordered By: David Cummins on 06-15-2023 Urea nitrogen [Mass/Vol] 8 mg/dL 7-18 [facility] Thin prep Papanicolaou smear with manual screeningOrdered By: David Cummins on 06-15-2023 Thin prep Papanicolaou smear with manual screening 3.5 g/dL 3.2-5.0 [facility] Thin prep Papanicolaou smear with manual screening 17 U/L 15-37 [facility] Thin prep Papanicolaou smear with manual screening 6 5-15 [facility] Thin prep Papanicolaou smear with manual screening 31.4 mg/L NO RANGE EST. [facility] Urine creatinine measurement (mass/volume)Ordered By: David Cummins on 06-15-2023 Creatinine (U) [Mass/Vol] 163.00 mg/dL NO RANGE EST. [facility] Whole blood hemoglobin A1c/t otal hemoglobin ratio (mass fraction)Ordered By: David Cummins on 06-15-2023 HbA1c (Bld) [Mass fraction] 9.0 % 3.8-5.6 [facility] Comment on above: Normal < 5.7 % Predi abetic 5.7 - 6.4 % Diabetic >or= 6.5 % Please note range changes. .Auto Diffon 12-08-2022 Basophil, Absolute 0.1 10 3/mcL Normal 0.0-0.3 [facility] [place] Comment on above: Performed By: #### P HOS, CKMB, CKMBM, MG, TROPHS #### [address] [address] Basophils/100 WBC (Bld) 0.7 % Normal 0.0-2.5 A [facility] ([place] Comment on above: Performed By: #### P HOS, CKMB, CKMBM, MG, TROPHS #### [address] [address] Eosinophil, Absolute 0.4 10 3/mcL Normal 0.0-0.7 [facility] ([place]) Comment on above: Performed By: #### P HOS, CKMB, CKMBM, MG, TROPHS #### [address] [address] Eosinophils/100 WBC (Bld) 3.9 % Normal 0.0-6.0 [facility] ([place] Comment on above: Performed By: #### P HOS, CKMB, CKMBM, MG, TROPHS #### [address] [address] Lymphocyte, Absolute 0.8 10 3/mcL Low 0.9-4.3 [facility] ([place] Comment on above: Performed By: #### P HOS, CKMB, CKMBM, MG, TROPHS #### [address] [address] Lymphocytes/100 WBC (Bld) 8.4 % Low 20.0-40.0 [facility] ([place] Comment on above: Performed By: #### P HOS, CKMB, CKMBM, MG, TROPHS #### [address] [address] Monocyte, Absolute 0.8 10 3/mcL Normal 0.1-1.4 [facility] ([place] Comment on above: Performed By: #### P HOS, CKMB, CKMBM, MG, TROPHS #### [address] [address] Monocytes/100 WBC (Bld) 8.1 % Normal 2.0-13.0 A [facility] ([place] Comment on above: Performed By: #### P HOS, CKMB, CKMBM, MG, TROPHS #### [address] [address] Neutrophils/100 WBC (Bld) 78.9 % High 50.0-75.0 [facility] ([place] Comment on above: Performed By: #### P HOS, CKMB, CKMBM, MG, TROPHS #### [address] [address] .GFRon 12-08-2022 GFR >60 Normal [facility] ([place] Comment on above: Result Comment: GFR Population mean for , Non- Americans Ages 20-29 = 116 mL/min/1.73 sq.m. Ages 30-39 = 107 mL/min/1.73 sq.m. Ages 40-49 = 99 mL/min/1.73 sq.m. Ages 50-59 = 93 mL/min/1.73 sq.m. Ages 60-69 = 85 mL/min/1.73 sq.m. Ages 70+ = 75 mL/min/1.73 sq.m. Chronic Kidney Disease: Less than 60 mL/min/1.73 square meters End Stage Renal Disease: Less than 15 mL/min/1.73 square meters Performed By: #### P HOS, CKMB, CKMBM, MG, TROPHS #### [address] [address] GFR Non- >60 Normal [facility] ([place] Comment on above: Result Comment: GFR Population mean for , Non- Americans Ages 20-29 = 116 mL/min/1.73 sq.m. Ages 30-39 = 107 mL/min/1.73 sq.m. Ages 40-49 = 99 mL/min/1.73 sq.m. Ages 50-59 = 93 mL/min/1.73 sq.m. Ages 60-69 = 85 mL/min/1.73 sq.m. Ages 70+ = 75 mL/min/1.73 sq.m. Chronic Kidney Disease: Less than 60 mL/min/1.73 square meters End Stage Renal Disease: Less than 15 mL/min/1.73 square meters Performed By: #### P HOS, CKMB, CKMBM, MG, TROPHS #### [address] [address] .NEUABSon 12-08-2022 Neutrophil, Absolute 7.6 10 3/mcL Normal 2.3-8.1 [facility] ([place] Comment on above: Performed By: #### P HOS, CKMB, CKMBM, MG, TROPHS #### [address] [address] BMPon 12-08-2022 BUN/Creatinine Ratio 20.6 ratio Normal 10.0-22.0 [facility] ([place] Comment on above: Performed By: #### P HOS, CKMB, CKMBM, MG, TROPHS #### [place] [id number] Calcium [Mass/Vol] 8.9 mg/dL Normal 8.7-10.4 [facility] ([place] Comment on above: Performed By: #### P HOS, CKMB, CKMBM, MG, TROPHS #### [place] [id number] Chloride [Moles/Vol] 106 mmol/L Normal 98-110 [facility] ([place] Comment on above: Performed By: #### P HOS, CKMB, CKMBM, MG, TROPHS #### [place] [id number] CO2 [Moles/Vol] 32 mmol/L Normal 22-32 [facility] ([place] Comment on above: Performed By: #### P HOS, CKMB, CKMBM, MG, TROPHS #### [place] [id number] Creatinine [Mass/Vol] 0.68 mg/dL Normal 0.60-1.40 [facility] ([place] Comment on above: Performed By: #### P HOS, CKMB, CKMBM, MG, TROPHS #### [place] [id number] Electrolyte Balance 1.0 mEq/L Low 4.0-15.0 [facility] [place] Comment on above: Performed By: #### P HOS, CKMB, CKMBM, MG, TROPHS #### [place] [id number] Glucose [Mass/Vol] 202 mg/dL High 70-110 [facility] ([place] Comment on above: Performed By: #### P HOS, CKMB, CKMBM, MG, TROPHS #### [place] [id number] Potassium [Moles/Vol] 4.6 mmol/L Normal 3.5-5.0 [facility] ([place] Comment on above: Performed By: #### P HOS, CKMB, CKMBM, MG, TROPHS #### [place] [address] Sodium [Moles/Vol] 139 mmol/L Normal 136-145 [facility] ([place] Comment on above: Performed By: #### P HOS, CKMB, CKMBM, MG, TROPHS #### [place] [address] Urea nitrogen [Mass/Vol] 14.0 mg/dL Normal 8.0-22.0 [facility] ([place] Comment on above: Performed By: #### P HOS, CKMB, CKMBM, MG, TROPHS #### [place] [address] CBCon 12-08-2022 Erythrocyte distribution width (RBC) [Ratio] 13.8 % Normal 11.5-15.5 [facility] ([place] Comment on above: Performed By: #### P HOS, CKMB, CKMBM, MG, TROPHS #### [place] [address] Hematocrit (Bld) [Volume fraction] 39.4 % Low 40.0-52.0 [facility] ([place] Comment on above: Performed By: #### P HOS, CKMB, CKMBM, MG, TROPHS #### [place] [address] Hgb 13.3 G/dL Normal 13.0-17.5 [facility] ([place] Comment on above: Performed By: #### P HOS, CKMB, CKMBM, MG, TROPHS #### [place] [address] MCH (RBC) [Entitic mass] 28.8 pg Normal 27.0-33.0 [facility] ([place] Comment on above: Performed By: #### P HOS, CKMB, CKMBM, MG, TROPHS #### [place] [address] MCHC 33.9 G/dL Normal 32.0-36.0 [facility] ([place] Comment on above: Performed By: #### P HOS, CKMB, CKMBM, MG, TROPHS #### [place] [address] MCV (RBC) [Entitic vol] 84.8 fL Normal 81.0-100.0 A [facility] ([place] Comment on above: Performed By: #### P HOS, CKMB, CKMBM, MG, TROPHS #### [place] [address] Platelet 275 10 3/mcL Normal 150-450 [facility] ([place] Comment on above: Performed By: #### P HOS, CKMB, CKMBM, MG, TROPHS #### [place] [address] Platelet mean volume (Bld) [Entitic vol] 9.2 fL Normal 6.4-10.5 [facility] ([place] Comment on above: Performed By: #### P HOS, CKMB, CKMBM, MG, TROPHS #### [place] [address] RBC 4.64 10 6/mcL Normal 4.50-6.00 [facility] ([place] Comment on above: Performed By: #### P HOS, CKMB, CKMBM, MG, TROPHS #### [place] [address] WBC 9.7 10 3/mcL Normal 4.5-10.8 [facility] ([place] Comment on above: Performed By: #### P HOS, CKMB, CKMBM, MG, TROPHS #### [place] [address] LABORATORYOrdered By: Juan David Wells on 12-08-2022 Blood Glucose Testing Reason Routine (12/08/22 12:04 PM) [facility] Work Phone: Glucose [Mass/Vol] 268 mg/dL Invalid Interpretation Code 70 - 110 mg/dL [facility] Work Phone: LABORATORYOrdered By: Ignacia Lopez on 12-08-2022 Blood Glucose Testing Reason Routine (12/08/22 8:35 AM) [facility] Work Phone: Glucose [Mass/Vol] 192 mg/dL Invalid Interpretation Code 70 - 110 mg/dL [facility] Work Phone: LABORATORYOrdered By: SYSTEM SYSTEM on 12-08-2022 Basophils (Bld) [#/Vol] 0.1 103/mcL Invalid Interpretation Code 0.0 - 0.3 10^3/mcL Workflow SS Basophils/100 WBC (Bld) 0.7 % Invalid Interpretation Code 0.0 - 2.5 % Workflow SS Calcium [Mass/Vol] 8.9 mg/dL Invalid Interpretation Code 8.7 - 10.4 mg/dL ADM SS Chloride [Moles/Vol] 106 mmol/L Invalid Interpretation Code 98 - 110 mEq/L ADM SS CO2 [Moles/Vol] 32 mmol/L Invalid Interpretation Code 22 - 32 mEq/L ADM SS Creatinine [Mass/Vol] 0.68 mg/dL Invalid Interpretation Code 0.60 - 1.40 mg/dL ADM SS Electrolyte Balance 1.0 mEq/L Invalid Interpretation Code 4.0 - 15.0 mEq/L ADM SS Eosinophils (Bld) [#/Vol] 0.4 103/mcL Invalid Interpretation Code 0.0 - 0.7 10^3/mcL Workflow SS Eosinophils/100 WBC (Bld) 3.9 % Invalid Interpretation Code 0.0 - 6.0 % Workflow SS Erythrocyte distribution width (RBC) [Ratio] 13.8 % Invalid Interpretation Code 11.5 - 15.5 % Workflow SS GFR/1.73 sq M.predicted among blacks MDRD (S/P/Bld) [Vol rate/Area] ml/min/1.73sqm Invalid Interpretation Code Chemistry S Comment on above: Interpretive Data: GFR Population mean for , Non- Americans Ages 20-29 = 116 mL/min/1.73 sq.m. Ages 30-39 = 107 mL/min/1.73 sq.m. Ages 40-49 = 99 mL/min/1.73 sq.m. Ages 50-59 = 93 mL/min/1.73 sq.m. Ages 60-69 = 85 mL/min/1.73 sq.m. Ages 70+ = 75 mL/min/1.73 sq.m. Chronic Kidney Disease: Less than 60 mL/min/1.73 square meters End Stage Renal Disease: Less than 15 mL/min/1.73 square meters GFR/1.73 sq M.predicted among non-blacks MDRD (S/P/Bld) [Vol rate/Area] ml/min/1.73sqm Invalid Interpretation Code Chemistry S Comment on above: Interpretive Data: GFR Population mean for , Non- Americans Ages 20-29 = 116 mL/min/1.73 sq.m. Ages 30-39 = 107 mL/min/1.73 sq.m. Ages 40-49 = 99 mL/min/1.73 sq.m. Ages 50-59 = 93 mL/min/1.73 sq.m. Ages 60-69 = 85 mL/min/1.73 sq.m. Ages 70+ = 75 mL/min/1.73 sq.m. Chronic Kidney Disease: Less than 60 mL/min/1.73 square meters End Stage Renal Disease: Less than 15 mL/min/1.73 square meters Glucose [Mass/Vol] 202 mg/dL Invalid Interpretation Code 70 - 110 mg/dL ADM SS Hematocrit (Bld) [Volume fraction] 39.4 % Invalid Interpretation Code 40.0 - 52.0 % Workflow SS Hemoglobin (Bld) [Mass/Vol] 13.3 G/dL Invalid Interpretation Code 13.0 - 17.5 G/dL Workflow SS Lymphocytes (Bld) [#/Vol] 0.8 103/mcL Invalid Interpretation Code 0.9 - 4.3 10^3/mcL Workflow SS Lymphocytes/100 WBC (Bld) 8.4 % Invalid Interpretation Code 20.0 - 40.0 % Workflow SS MCH (RBC) [Entitic mass] 28.8 pg Invalid Interpretation Code 27.0 - 33.0 pg AH Workflow SS MCHC 33.9 G/dL Invalid Interpretation Code 32.0 - 36.0 G/dL AH Workflow SS MCV (RBC) [Entitic vol] 84.8 fL Invalid Interpretation Code 81.0 - 100.0 fL AH Workflow SS Monocytes (Bld) [#/Vol] 0.8 103/mcL Invalid Interpretation Code 0.1 - 1.4 10^3/mcL AH Workflow SS Monocytes/100 WBC (Bld) 8.1 % Invalid Interpretation Code 2.0 - 13.0 % AH Workflow SS Neutrophils (Bld) [#/Vol] 7.6 103/mcL Invalid Interpretation Code 2.3 - 8.1 10^3/mcL AH Workflow SS Neutrophils/100 WBC (Bld) 78.9 % Invalid Interpretation Code 50.0 - 75.0 % AH Workflow SS Platelet mean volume (Bld) [Entitic vol] 9.2 fL Invalid Interpretation Code 6.4 - 10.5 fL AH Workflow SS Platelets (Bld) [#/Vol] 275 103/mcL Invalid Interpretation Code 150 - 450 10^3/mcL AH Workflow SS Potassium [Moles/Vol] 4.6 mmol/L Invalid Interpretation Code 3.5 - 5.0 mEq/L AH ADM SS RBC (Bld) [#/Vol] 4.64 106/mcL Invalid Interpretation Code 4.50 - 6.00 10^6/mcL AH Workflow SS Sodium [Moles/Vol] 139 mmol/L Invalid Interpretation Code 136 - 145 mEq/L AH ADM SS Urea nitrogen [Mass/Vol] 14.0 mg/dL Invalid Interpretation Code 8.0 - 22.0 mg/dL AH ADM SS Urea nitrogen/Creatinine [Mass ratio] 20.6 ratio Invalid Interpretation Code 10.0 - 22.0 ratio AH ADM SS WBC (Bld) [#/Vol] 9.7 103/mcL Invalid Interpretation Code 4.5 - 10.8 10^3/mcL Workflow SS No Panel Informationon 12-08 GS Rare Gram Positive Cocci [facility] Work Phone: .Auto Diffon 12-07-2022 Basophil, Absolute 0.1 10 3/mcL Normal 0.0-0.3 [facility] ([place] Comment on above: Performed By: #### P HOS, CKMB, CKMBM, MG, TROPHS #### [address] [address] Basophils/100 WBC (Bld) 0.4 % Normal 0.0-2.5 A [facility] ([place] Comment on above: Performed By: #### P HOS, CKMB, CKMBM, MG, TROPHS #### [address] [address] Eosinophil, Absolute 0.3 10 3/mcL Normal 0.0-0.7 [facility] ([place] Comment on above: Performed By: #### P HOS, CKMB, CKMBM, MG, TROPHS #### [address] [address] Eosinophils/100 WBC (Bld) 2.1 % Normal 0.0-6.0 [facility] ([place] Comment on above: Performed By: #### P HOS, CKMB, CKMBM, MG, TROPHS #### [address] [address] Lymphocyte, Absolute 1.0 10 3/mcL Normal 0.9-4.3 [facility] ([place]) Comment on above: Performed By: #### P HOS, CKMB, CKMBM, MG, TROPHS #### [address] [address] Lymphocytes/100 WBC (Bld) 7.4 % Low 20.0-40.0 [facility] ([place] Comment on above: Performed By: #### P HOS, CKMB, CKMBM, MG, TROPHS #### [address] [address] Monocyte, Absolute 0.9 10 3/mcL Normal 0.1-1.4 [facility] ([place] Comment on above: Performed By: #### P HOS, CKMB, CKMBM, MG, TROPHS #### [address] [address] Monocytes/100 WBC (Bld) 7.1 % Normal 2.0-13.0 A [facility] ([place] Comment on above: Performed By: #### P HOS, CKMB, CKMBM, MG, TROPHS #### [address] [address] Neutrophils/100 WBC (Bld) 83.0 % High 50.0-75.0 [facility] ([place] Comment on above: Performed By: #### P HOS, CKMB, CKMBM, MG, TROPHS #### [address] [address] .GFRon 12-07-2022 GFR >60 Normal [facility] ([place] Comment on above: Result Comment: GFR Population mean for , Non- Americans Ages 20-29 = 116 mL/min/1.73 sq.m. Ages 30-39 = 107 mL/min/1.73 sq.m. Ages 40-49 = 99 mL/min/1.73 sq.m. Ages 50-59 = 93 mL/min/1.73 sq.m. Ages 60-69 = 85 mL/min/1.73 sq.m. Ages 70+ = 75 mL/min/1.73 sq.m. Chronic Kidney Disease: Less than 60 mL/min/1.73 square meters End Stage Renal Disease: Less than 15 mL/min/1.73 square meters Performed By: #### P HOS, CKMB, CKMBM, MG, TROPHS #### [address] [address] GFR Non- >60 Normal [facility] ([place] Comment on above: Result Comment: GFR Population mean for , Non- Americans Ages 20-29 = 116 mL/min/1.73 sq.m. Ages 30-39 = 107 mL/min/1.73 sq.m. Ages 40-49 = 99 mL/min/1.73 sq.m. Ages 50-59 = 93 mL/min/1.73 sq.m. Ages 60-69 = 85 mL/min/1.73 sq.m. Ages 70+ = 75 mL/min/1.73 sq.m. Chronic Kidney Disease: Less than 60 mL/min/1.73 square meters End Stage Renal Disease: Less than 15 mL/min/1.73 square meters Performed By: #### P HOS, CKMB, CKMBM, MG, TROPHS #### [address] [address] .NEUABSon 12-07-2022 Neutrophil, Absolute 10.8 10 3/mcL High 2.3-8.1 A [facility] ([place] Comment on above: Performed By: #### P HOS, CKMB, CKMBM, MG, TROPHS #### [address] [address] BMPon 12-07-2022 BUN/Creatinine Ratio 22.4 ratio High 10.0-22.0 [facility] ([place] Comment on above: Performed By: #### P HOS, CKMB, CKMBM, MG, TROPHS #### [place] [address] Calcium [Mass/Vol] 8.8 mg/dL Normal 8.7-10.4 [facility] ([place] Comment on above: Performed By: #### P HOS, CKMB, CKMBM, MG, TROPHS #### [place] [address] Chloride [Moles/Vol] 101 mmol/L Normal 98-110 [facility] ([place] Comment on above: Performed By: #### P HOS, CKMB, CKMBM, MG, TROPHS #### [place] [address] CO2 [Moles/Vol] 28 mmol/L Normal 22-32 [facility] ([place] Comment on above: Performed By: #### P HOS, CKMB, CKMBM, MG, TROPHS #### [place] [address] Creatinine [Mass/Vol] 0.76 mg/dL Normal 0.60-1.40 [facility] ([place] Comment on above: Performed By: #### P HOS, CKMB, CKMBM, MG, TROPHS #### [place] [address] Electrolyte Balance 7.0 mEq/L Normal 4.0-15.0 [facility] [place] Comment on above: Performed By: #### P HOS, CKMB, CKMBM, MG, TROPHS #### [place] [id number] Glucose [Mass/Vol] 212 mg/dL High 70-110 [facility] ([place] Comment on above: Performed By: #### P HOS, CKMB, CKMBM, MG, TROPHS #### [place] [id number] Potassium [Moles/Vol] 4.6 mmol/L Normal 3.5-5.0 [facility] ([place] Comment on above: Performed By: #### P HOS, CKMB, CKMBM, MG, TROPHS #### [place] [id number] Sodium [Moles/Vol] 136 mmol/L Normal 136-145 [facility] ([place] Comment on above: Performed By: #### P HOS, CKMB, CKMBM, MG, TROPHS #### [place] [address] Urea nitrogen [Mass/Vol] 17.0 mg/dL Normal 8.0-22.0 [facility] ([place] Comment on above: Performed By: #### P HOS, CKMB, CKMBM, MG, TROPHS #### [place] [id number] CBCon 12-07-2022 Erythrocyte distribution width (RBC) [Ratio] 13.7 % Normal 11.5-15.5 [facility] ([place] Comment on above: Performed By: #### P HOS, CKMB, CKMBM, MG, TROPHS #### [place] [address] Hematocrit (Bld) [Volume fraction] 41.6 % Normal 40.0-52.0 [facility] ([place] Comment on above: Performed By: #### P HOS, CKMB, CKMBM, MG, TROPHS #### [place] [id number] Hgb 14.0 G/dL Normal 13.0-17.5 [facility] ([place] Comment on above: Performed By: #### P HOS, CKMB, CKMBM, MG, TROPHS #### [place] [address] MCH (RBC) [Entitic mass] 28.4 pg Normal 27.0-33.0 [facility] ([place] Comment on above: Performed By: #### P HOS, CKMB, CKMBM, MG, TROPHS #### [place] [address] MCHC 33.7 G/dL Normal 32.0-36.0 [facility] ([place] Comment on above: Performed By: #### P HOS, CKMB, CKMBM, MG, TROPHS #### [place] [address] MCV (RBC) [Entitic vol] 84.4 fL Normal 81.0-100.0 A [facility] ([place] Comment on above: Performed By: #### P HOS, CKMB, CKMBM, MG, TROPHS #### [place] [address] Platelet 270 10 3/mcL Normal 150-450 [facility] ([place] Comment on above: Performed By: #### P HOS, CKMB, CKMBM, MG, TROPHS #### [place] [address] Platelet mean volume (Bld) [Entitic vol] 9.7 fL Normal 6.4-10.5 [facility] ([place] Comment on above: Performed By: #### P HOS, CKMB, CKMBM, MG, TROPHS #### [place] [address] RBC 4.92 10 6/mcL Normal 4.50-6.00 [facility] ([place] Comment on above: Performed By: #### P HOS, CKMB, CKMBM, MG, TROPHS #### [place] [address] WBC 12.9 10 3/mcL High 4.5-10.8 [facility] ([place] Comment on above: Performed By: #### P HOS, CKMB, CKMBM, MG, TROPHS #### [address] [place], [place] [address] LABORATORYOrdered By: Tegan Miller on 12-07-2022 Glucose [Mass/Vol] 258 mg/dL Invalid Interpretation Code 70 - 110 mg/dL [facility] Work Phone: LABORATORYOrdered By: Juan David Wells on 12-07-2022 Blood Glucose Testing Reason Routine (12/07/22 4:49 PM) [facility] Work Phone: LABORATORYOrdered By: SYSTEM SYSTEM on 12-07-2022 Basophils (Bld) [#/Vol] 0.1 103/mcL Invalid Interpretation Code 0.0 - 0.3 10^3/mcL Workflow SS Basophils/100 WBC (Bld) 0.4 % Invalid Interpretation Code 0.0 - 2.5 % Workflow SS Calcium [Mass/Vol] 8.8 mg/dL Invalid Interpretation Code 8.7 - 10.4 mg/dL ADM SS Chloride [Moles/Vol] 101 mmol/L Invalid Interpretation Code 98 - 110 mEq/L ADM SS CO2 [Moles/Vol] 28 mmol/L Invalid Interpretation Code 22 - 32 mEq/L ADM SS Creatinine [Mass/Vol] 0.76 mg/dL Invalid Interpretation Code 0.60 - 1.40 mg/dL ADM SS Electrolyte Balance 7.0 mEq/L Invalid Interpretation Code 4.0 - 15.0 mEq/L ADM SS Eosinophils (Bld) [#/Vol] 0.3 103/mcL Invalid Interpretation Code 0.0 - 0.7 10^3/mcL Workflow SS Eosinophils/100 WBC (Bld) 2.1 % Invalid Interpretation Code 0.0 - 6.0 % Workflow SS Erythrocyte distribution width (RBC) [Ratio] 13.7 % Invalid Interpretation Code 11.5 - 15.5 % Workflow SS GFR/1.73 sq M.predicted among blacks MDRD (S/P/Bld) [Vol rate/Area] ml/min/1.73sqm Invalid Interpretation Code Chemistry S Comment on above: Interpretive Data: GFR Population mean for , Non- Americans Ages 20-29 = 116 mL/min/1.73 sq.m. Ages 30-39 = 107 mL/min/1.73 sq.m. Ages 40-49 = 99 mL/min/1.73 sq.m. Ages 50-59 = 93 mL/min/1.73 sq.m. Ages 60-69 = 85 mL/min/1.73 sq.m. Ages 70+ = 75 mL/min/1.73 sq.m. Chronic Kidney Disease: Less than 60 mL/min/1.73 square meters End Stage Renal Disease: Less than 15 mL/min/1.73 square meters GFR/1.73 sq M.predicted among non-blacks MDRD (S/P/Bld) [Vol rate/Area] ml/min/1.73sqm Invalid Interpretation Code Chemistry S Comment on above: Interpretive Data: GFR Population mean for , Non- Americans Ages 20-29 = 116 mL/min/1.73 sq.m. Ages 30-39 = 107 mL/min/1.73 sq.m. Ages 40-49 = 99 mL/min/1.73 sq.m. Ages 50-59 = 93 mL/min/1.73 sq.m. Ages 60-69 = 85 mL/min/1.73 sq.m. Ages 70+ = 75 mL/min/1.73 sq.m. Chronic Kidney Disease: Less than 60 mL/min/1.73 square meters End Stage Renal Disease: Less than 15 mL/min/1.73 square meters Glucose [Mass/Vol] 212 mg/dL Invalid Interpretation Code 70 - 110 mg/dL ADM SS Hematocrit (Bld) [Volume fraction] 41.6 % Invalid Interpretation Code 40.0 - 52.0 % Workflow SS Hemoglobin (Bld) [Mass/Vol] 14.0 G/dL Invalid Interpretation Code 13.0 - 17.5 G/dL Workflow SS Lymphocytes (Bld) [#/Vol] 1.0 103/mcL Invalid Interpretation Code 0.9 - 4.3 10^3/mcL Workflow SS Lymphocytes/100 WBC (Bld) 7.4 % Invalid Interpretation Code 20.0 - 40.0 % Workflow SS MCH (RBC) [Entitic mass] 28.4 pg Invalid Interpretation Code 27.0 - 33.0 pg Workflow SS MCHC 33.7 G/dL Invalid Interpretation Code 32.0 - 36.0 G/dL Workflow SS MCV (RBC) [Entitic vol] 84.4 fL Invalid Interpretation Code 81.0 - 100.0 fL AH Workflow SS Monocytes (Bld) [#/Vol] 0.9 103/mcL Invalid Interpretation Code 0.1 - 1.4 10^3/mcL AH Workflow SS Monocytes/100 WBC (Bld) 7.1 % Invalid Interpretation Code 2.0 - 13.0 % AH Workflow SS Neutrophils (Bld) [#/Vol] 10.8 103/mcL Invalid Interpretation Code 2.3 - 8.1 10^3/mcL AH Workflow SS Neutrophils/100 WBC (Bld) 83.0 % Invalid Interpretation Code 50.0 - 75.0 % AH Workflow SS Platelet mean volume (Bld) [Entitic vol] 9.7 fL Invalid Interpretation Code 6.4 - 10.5 fL AH Workflow SS Platelets (Bld) [#/Vol] 270 103/mcL Invalid Interpretation Code 150 - 450 10^3/mcL AH Workflow SS Potassium [Moles/Vol] 4.6 mmol/L Invalid Interpretation Code 3.5 - 5.0 mEq/L AH ADM SS RBC (Bld) [#/Vol] 4.92 106/mcL Invalid Interpretation Code 4.50 - 6.00 10^6/mcL AH Workflow SS Sodium [Moles/Vol] 136 mmol/L Invalid Interpretation Code 136 - 145 mEq/L AH ADM SS Urea nitrogen [Mass/Vol] 17.0 mg/dL Invalid Interpretation Code 8.0 - 22.0 mg/dL AH ADM SS Urea nitrogen/Creatinine [Mass ratio] 22.4 ratio Invalid Interpretation Code 10.0 - 22.0 ratio AH ADM SS WBC (Bld) [#/Vol] 12.9 103/mcL Invalid Interpretation Code 4.5 - 10.8 10^3/mcL AH Workflow SS .Auto Diffon 12-06-2022 Basophil, Absolute 0.0 10 3/mcL Normal 0.0-0.3 [facility] ([place] Comment on above: Performed By: #### G FR, CBC, ADIFF, ANEU, BMP #### [address] [address] Basophils/100 WBC (Bld) 0.2 % Normal 0.0-2.5 A [facility] ([place] Comment on above: Performed By: #### G FR, CBC, ADIFF, ANEU, BMP #### [address] [address] Eosinophil, Absolute 0.2 10 3/mcL Normal 0.0-0.7 [facility] ([place]) Comment on above: Performed By: #### G FR, CBC, ADIFF, ANEU, BMP #### [address] [address] Eosinophils/100 WBC (Bld) 1.1 % Normal 0.0-6.0 [facility] ([place] Comment on above: Performed By: #### G FR, CBC, ADIFF, ANEU, BMP #### [address] [address] Lymphocyte, Absolute 0.9 10 3/mcL Normal 0.9-4.3 [facility] ([place] Comment on above: Performed By: #### G FR, CBC, ADIFF, ANEU, BMP #### [address] [address] Lymphocytes/100 WBC (Bld) 6.1 % Low 20.0-40.0 [facility] ([place] Comment on above: Performed By: #### G FR, CBC, ADIFF, ANEU, BMP #### [address] [address] Monocyte, Absolute 1.1 10 3/mcL Normal 0.1-1.4 [facility] ([place] Comment on above: Performed By: #### G FR, CBC, ADIFF, ANEU, BMP #### [address] [address] Monocytes/100 WBC (Bld) 7.0 % Normal 2.0-13.0 [facility] ([place]) Comment on above: Performed By: #### G FR, CBC, ADIFF, ANEU, BMP #### [address] [address] Neutrophils/100 WBC (Bld) 85.6 % High 50.0-75.0 [facility] ([place] Comment on above: Performed By: #### G FR, CBC, ADIFF, ANEU, BMP #### [address] [address] .GFRon 12-06-2022 GFR Non- >60 Normal [facility] ([place] Comment on above: Result Comment: GFR Population mean for , Non- Americans Ages 20-29 = 116 mL/min/1.73 sq.m. Ages 30-39 = 107 mL/min/1.73 sq.m. Ages 40-49 = 99 mL/min/1.73 sq.m. Ages 50-59 = 93 mL/min/1.73 sq.m. Ages 60-69 = 85 mL/min/1.73 sq.m. Ages 70+ = 75 mL/min/1.73 sq.m. Chronic Kidney Disease: Less than 60 mL/min/1.73 square meters End Stage Renal Disease: Less than 15 mL/min/1.73 square meters Performed By: #### G FR, CBC, ADIFF, ANEU, BMP #### [address] [address] GFR >60 Normal [facility] ([place] Comment on above: Result Comment: GFR Population mean for , Non- Americans Ages 20-29 = 116 mL/min/1.73 sq.m. Ages 30-39 = 107 mL/min/1.73 sq.m. Ages 40-49 = 99 mL/min/1.73 sq.m. Ages 50-59 = 93 mL/min/1.73 sq.m. Ages 60-69 = 85 mL/min/1.73 sq.m. Ages 70+ = 75 mL/min/1.73 sq.m. Chronic Kidney Disease: Less than 60 mL/min/1.73 square meters End Stage Renal Disease: Less than 15 mL/min/1.73 square meters Performed By: #### G FR, CBC, ADIFF, ANEU, BMP #### [address] [address] .NEUABSon 12-06-2022 Neutrophil, Absolute 13.0 10 3/mcL High 2.3-8.1 A [facility] ([place] Comment on above: Performed By: #### G FR, CBC, ADIFF, ANEU, BMP #### [address] [address] [facility]2022 BUN/Creatinine Ratio 21.5 ratio Normal 10.0-22.0 [facility] [place] Comment on above: Performed By: #### G FR, CBC, ADIFF, ANEU, BMP #### [address] [address] Calcium [Mass/Vol] 8.7 mg/dL Normal 8.7-10.4 [facility] ([place] Comment on above: Performed By: #### Livia FR, CBC, ADIFF, ANEU, BMP #### [address] [address] Chloride [Moles/Vol] 101 mmol/L Normal 98-110 [facility] ([place] Comment on above: Performed By: #### Livia FR, CBC, ADIFF, ANEU, BMP #### [address] [address] CO2 [Moles/Vol] 28 mmol/L Normal 22-32 [facility] ([place] Comment on above: Performed By: #### Livia FR, CBC, ADIFF, ANEU, BMP #### [address] [address] Creatinine [Mass/Vol] 0.93 mg/dL Normal 0.60-1.40 [facility] ([place] Comment on above: Performed By: #### G FR, CBC, ADIFF, ANEU, BMP #### [address] [address] Electrolyte Balance 6.0 mEq/L Normal 4.0-15.0 [facility] [place] Comment [place] above: Performed By: #### G FR, CBC, ADIFF, ANEU, BMP #### [address] [address] Glucose [Mass/Vol] 286 mg/dL High 70-110 [facility] ([place] Comment on above: Performed By: #### G FR, CBC, ADIFF, ANEU, BMP #### [address] [address] Potassium [Moles/Vol] 4.4 mmol/L Normal 3.5-5.0 [facility] ([place] Comment on above: Performed By: #### G FR, CBC, ADIFF, ANEU, BMP #### [place] [address] Sodium [Moles/Vol] 135 mmol/L Low 136-145 [facility] ([place] Comment on above: Performed By: #### G FR, CBC, ADIFF, ANEU, BMP #### [place] [address] Urea nitrogen [Mass/Vol] 20.0 mg/dL Normal 8.0-22.0 [facility] ([place] Comment on above: Performed By: #### G FR, CBC, ADIFF, ANEU, BMP #### [place] [address] CBCon 12-06-2022 Erythrocyte distribution width (RBC) [Ratio] 13.5 % Normal 11.5-15.5 [facility] ([place] Comment on above: Performed By: #### G FR, CBC, ADIFF, ANEU, BMP #### [place] [address] Hematocrit (Bld) [Volume fraction] 41.0 % Normal 40.0-52.0 [facility] ([place] Comment on above: Performed By: #### G FR, CBC, ADIFF, ANEU, BMP #### [place] [address] Hgb 13.9 G/dL Normal 13.0-17.5 [facility] ([place] Comment on above: Performed By: #### G FR, CBC, ADIFF, ANEU, BMP #### [place] [address] MCH (RBC) [Entitic mass] 28.9 pg Normal 27.0-33.0 [facility] ([place] Comment on above: Performed By: #### G FR, CBC, ADIFF, ANEU, BMP #### [place] [address] MCHC 33.9 G/dL Normal 32.0-36.0 [facility] ([place] Comment on above: Performed By: #### G FR, CBC, ADIFF, ANEU, BMP #### [address] [address] MCV (RBC) [Entitic vol] 85.0 fL Normal 81.0-100.0 A [facility] ([place] Comment on above: Performed By: #### G FR, CBC, ADIFF, ANEU, BMP #### [address] [address] Platelet 239 10 3/mcL Normal 150-450 [facility] ([place] Comment on above: Performed By: #### G FR, CBC, ADIFF, ANEU, BMP #### [address] [address] Platelet mean volume (Bld) [Entitic vol] 9.5 fL Normal 6.4-10.5 [facility] ([place] Comment on above: Performed By: #### G FR, CBC, ADIFF, ANEU, BMP #### [place] [address] RBC 4.82 10 6/mcL Normal 4.50-6.00 [facility] ([place] Comment on above: Performed By: #### G FR, CBC, ADIFF, ANEU, BMP #### [address] [address] WBC 15.2 10 3/mcL High 4.5-10.8 [facility] ([place] Comment on above: Performed By: #### G FR, CBC, ADIFF, ANEU, BMP #### [address] [address] LABORATORYOrdered By: Rema Wen on 12-06-2022 LDose Vancomycin:(trough) See eMAR (12/06/22 11:10 AM) Invalid Interpretation Code AH Chemistry S LABORATORYOrdered By: SYSTEM SYSTEM on 12-06-2022 Vancomycin trough [Mass/Vol] 9.7 ug/mL Invalid Interpretation Code 5.0 - 20.0 mcg/mL AH ADM SS Basophils (Bld) [#/Vol] 0.0 103/mcL Invalid Interpretation Code 0.0 - 0.3 10^3/mcL AH Workflow SS Basophils/100 WBC (Bld) 0.2 % Invalid Interpretation Code 0.0 - 2.5 % Workflow SS Calcium [Mass/Vol] 8.7 mg/dL Invalid Interpretation Code 8.7 - 10.4 mg/dL ADM SS Chloride [Moles/Vol] 101 mmol/L Invalid Interpretation Code 98 - 110 mEq/L AH ADM SS CO2 [Moles/Vol] 28 mmol/L Invalid Interpretation Code 22 - 32 mEq/L AH ADM SS Creatinine [Mass/Vol] 0.93 mg/dL Invalid Interpretation Code 0.60 - 1.40 mg/dL AH ADM SS Electrolyte Balance 6.0 mEq/L Invalid Interpretation Code 4.0 - 15.0 mEq/L ADM SS Eosinophils (Bld) [#/Vol] 0.2 103/mcL Invalid Interpretation Code 0.0 - 0.7 10^3/mcL Workflow SS Eosinophils/100 WBC (Bld) 1.1 % Invalid Interpretation Code 0.0 - 6.0 % Workflow SS Erythrocyte distribution width (RBC) [Ratio] 13.5 % Invalid Interpretation Code 11.5 - 15.5 % Workflow SS GFR/1.73 sq M.predicted among blacks MDRD (S/P/Bld) [Vol rate/Area] ml/min/1.73sqm Invalid Interpretation Code [employer] Chemistry S Comment on above: Interpretive Data: GFR Population mean for , Non- Americans Ages 20-29 = 116 mL/min/1.73 sq.m. Ages 30-39 = 107 mL/min/1.73 sq.m. Ages 40-49 = 99 mL/min/1.73 sq.m. Ages 50-59 = 93 mL/min/1.73 sq.m. Ages 60-69 = 85 mL/min/1.73 sq.m. Ages 70+ = 75 mL/min/1.73 sq.m. Chronic Kidney Disease: Less than 60 mL/min/1.73 square meters End Stage Renal Disease: Less than 15 mL/min/1.73 square meters GFR/1.73 sq M.predicted among non-blacks MDRD (S/P/Bld) [Vol rate/Area] ml/min/1.73sqm Invalid Interpretation Code [employer] Chemistry S Comment on above: Interpretive Data: GFR Population mean for , Non- Americans Ages 20-29 = 116 mL/min/1.73 sq.m. Ages 30-39 = 107 mL/min/1.73 sq.m. Ages 40-49 = 99 mL/min/1.73 sq.m. Ages 50-59 = 93 mL/min/1.73 sq.m. Ages 60-69 = 85 mL/min/1.73 sq.m. Ages 70+ = 75 mL/min/1.73 sq.m. Chronic Kidney Disease: Less than 60 mL/min/1.73 square meters End Stage Renal Disease: Less than 15 mL/min/1.73 square meters Glucose [Mass/Vol] 286 mg/dL Invalid Interpretation Code 70 - 110 mg/dL AH ADM SS Hematocrit (Bld) [Volume fraction] 41.0 % Invalid Interpretation Code 40.0 - 52.0 % AH Workflow SS Hemoglobin (Bld) [Mass/Vol] 13.9 G/dL Invalid Interpretation Code 13.0 - 17.5 G/dL AH Workflow SS Lymphocytes (Bld) [#/Vol] 0.9 103/mcL Invalid Interpretation Code 0.9 - 4.3 10^3/mcL Workflow SS Lymphocytes/100 WBC (Bld) 6.1 % Invalid Interpretation Code 20.0 - 40.0 % Workflow SS MCH (RBC) [Entitic mass] 28.9 pg Invalid Interpretation Code 27.0 - 33.0 pg AH Workflow SS MCHC 33.9 G/dL Invalid Interpretation Code 32.0 - 36.0 G/dL AH Workflow SS MCV (RBC) [Entitic vol] 85.0 fL Invalid Interpretation Code 81.0 - 100.0 fL AH Workflow SS Monocytes (Bld) [#/Vol] 1.1 103/mcL Invalid Interpretation Code 0.1 - 1.4 10^3/mcL Workflow SS Monocytes/100 WBC (Bld) 7.0 % Invalid Interpretation Code 2.0 - 13.0 % AH Workflow SS Neutrophils (Bld) [#/Vol] 13.0 103/mcL Invalid Interpretation Code 2.3 - 8.1 10^3/mcL Workflow SS Neutrophils/100 WBC (Bld) 85.6 % Invalid Interpretation Code 50.0 - 75.0 % Workflow SS Platelet mean volume (Bld) [Entitic vol] 9.5 fL Invalid Interpretation Code 6.4 - 10.5 fL AH Workflow SS Platelets (Bld) [#/Vol] 239 103/mcL Invalid Interpretation Code 150 - 450 10^3/mcL Workflow SS Potassium [Moles/Vol] 4.4 mmol/L Invalid Interpretation Code 3.5 - 5.0 mEq/L AH ADM SS RBC (Bld) [#/Vol] 4.82 106/mcL Invalid Interpretation Code 4.50 - 6.00 10^6/mcL AH Workflow SS Sodium [Moles/Vol] 135 mmol/L Invalid Interpretation Code 136 - 145 mEq/L AH ADM SS Urea nitrogen [Mass/Vol] 20.0 mg/dL Invalid Interpretation Code 8.0 - 22.0 mg/dL AH ADM SS Urea nitrogen/Creatinine [Mass ratio] 21.5 ratio Invalid Interpretation Code 10.0 - 22.0 ratio AH ADM SS WBC (Bld) [#/Vol] 15.2 103/mcL Invalid Interpretation Code 4.5 - 10.8 10^3/mcL [facility] LDose Vancomycin:(trough) See eMAR Normal [facility] ([place] Comment on above: Performed By: #### P HOS, CKMB, CKMBM, MG, TROPHS #### [place] [address] Vancomycin Tr 9.7 mcg/mL Normal 5.0-20.0 [facility] ([place] Comment on above: Performed By: #### P HOS, CKMB, CKMBM, MG, TROPHS #### [address] [address] .Auto Diffon 12-05-2022 Basophil, Absolute 0.0 10 3/mcL Normal 0.0-0.3 [facility] ([place] Comment on above: Performed By: #### P HOS, CKMB, CKMBM, MG, TROPHS #### [address] [address] Basophils/100 WBC (Bld) 0.2 % Normal 0.0-2.5 A [facility] ([place] Comment on above: Performed By: #### P HOS, CKMB, CKMBM, MG, TROPHS #### [address] [address] Eosinophil, Absolute 0.1 10 3/mcL Normal 0.0-0.7 [facility] ([place]) Comment on above: Performed By: #### P HOS, CKMB, CKMBM, MG, TROPHS #### [address] [address] Eosinophils/100 WBC (Bld) 0.8 % Normal 0.0-6.0 [facility] ([place] Comment on above: Performed By: #### P HOS, CKMB, CKMBM, MG, TROPHS #### [address] [address] Lymphocyte, Absolute 1.0 10 3/mcL Normal 0.9-4.3 [facility] ([place]) Comment on above: Performed By: #### P HOS, CKMB, CKMBM, MG, TROPHS #### [address] [address] Lymphocytes/100 WBC (Bld) 5.8 % Low 20.0-40.0 [facility] ([place]) Comment on above: Performed By: #### P HOS, CKMB, CKMBM, MG, TROPHS #### [address] [address] Monocyte, Absolute 1.1 10 3/mcL Normal 0.1-1.4 [facility] ([place] Comment on above: Performed By: #### P HOS, CKMB, CKMBM, MG, TROPHS #### [address] [address] Monocytes/100 WBC (Bld) 6.2 % Normal 2.0-13.0 A [facility] ([place] Comment on above: Performed By: #### P HOS, CKMB, CKMBM, MG, TROPHS #### [address] [address] Neutrophils/100 WBC (Bld) 87.0 % High 50.0-75.0 [facility] ([place]) Comment on above: Performed By: #### P HOS, CKMB, CKMBM, MG, TROPHS #### [address] [address] .GFRon 12-05-2022 GFR Non- >60 Normal [facility] ([place]) Comment on above: Result Comment: GFR Population mean for , Non- Americans Ages 20-29 = 116 mL/min/1.73 sq.m. Ages 30-39 = 107 mL/min/1.73 sq.m. Ages 40-49 = 99 mL/min/1.73 sq.m. Ages 50-59 = 93 mL/min/1.73 sq.m. Ages 60-69 = 85 mL/min/1.73 sq.m. Ages 70+ = 75 mL/min/1.73 sq.m. Chronic Kidney Disease: Less than 60 mL/min/1.73 square meters End Stage Renal Disease: Less than 15 mL/min/1.73 square meters Performed By: #### P HOS, CKMB, CKMBM, MG, TROPHS #### [address] [address] GFR >60 Normal [facility] ([place] Comment on above: Result Comment: GFR Population mean for , Non- Americans Ages 20-29 = 116 mL/min/1.73 sq.m. Ages 30-39 = 107 mL/min/1.73 sq.m. Ages 40-49 = 99 mL/min/1.73 sq.m. Ages 50-59 = 93 mL/min/1.73 sq.m. Ages 60-69 = 85 mL/min/1.73 sq.m. Ages 70+ = 75 mL/min/1.73 sq.m. Chronic Kidney Disease: Less than 60 mL/min/1.73 square meters End Stage Renal Disease: Less than 15 mL/min/1.73 square meters Performed By: #### P HOS, CKMB, CKMBM, MG, TROPHS #### [address] [address] .NEUABSon 12-05-2022 Neutrophil, Absolute 14.9 10 3/mcL High 2.3-8.1 A [facility] ([place] Comment on above: Performed By: #### P HOS, CKMB, CKMBM, MG, TROPHS #### [address] [address] CBCon 12-05-2022 Erythrocyte distribution width (RBC) [Ratio] 13.8 % Normal 11.5-15.5 [facility] ([place] Comment on above: Performed By: #### P HOS, CKMB, CKMBM, MG, TROPHS #### [place] [id number] Hematocrit (Bld) [Volume fraction] 44.8 % Normal 40.0-52.0 [facility] ([place] Comment on above: Performed By: #### P HOS, CKMB, CKMBM, MG, TROPHS #### [place] [id number] Hgb 15.0 G/dL Normal 13.0-17.5 [facility] ([place] Comment on above: Performed By: #### P HOS, CKMB, CKMBM, MG, TROPHS #### [place] [id number] MCH (RBC) [Entitic mass] 28.5 pg Normal 27.0-33.0 [facility] ([place] Comment on above: Performed By: #### P HOS, CKMB, CKMBM, MG, TROPHS #### [place] [address] MCHC 33.4 G/dL Normal 32.0-36.0 [facility] ([place] Comment on above: Performed By: #### P HOS, CKMB, CKMBM, MG, TROPHS #### [place] [id number] MCV (RBC) [Entitic vol] 85.3 fL Normal 81.0-100.0 A [facility] ([place] Comment on above: Performed By: #### P HOS, CKMB, CKMBM, MG, TROPHS #### [address] [address] Platelet 266 10 3/mcL Normal 150-450 [facility] ([place] Comment on above: Performed By: #### P HOS, CKMB, CKMBM, MG, TROPHS #### [place] [phone] Platelet mean volume (Bld) [Entitic vol] 9.6 fL Normal 6.4-10.5 [facility] ([place] Comment on above: Performed By: #### P HOS, CKMB, CKMBM, MG, TROPHS #### [address] [address] RBC 5.25 10 6/mcL Normal 4.50-6.00 [facility] ([place] Comment on above: Performed By: #### P HOS, CKMB, CKMBM, MG, TROPHS #### [address] [address] WBC 17.1 10 3/mcL High 4.5-10.8 [facility] ([place] Comment on above: Performed By: #### P HOS, CKMB, CKMBM, MG, TROPHS #### [address] [address] CMPon 12-05-2022 Albumin Level 3.2 G/dL Normal 3.2-4.8 [facility] ([place] Comment on above: Performed By: #### P HOS, CKMB, CKMBM, MG, TROPHS #### [place] [address] Albumin/Globulin [Mass ratio] 1.0 {ratio} Normal 0.9-1.6 [facility] ([place] Comment on above: Performed By: #### P HOS, CKMB, CKMBM, MG, TROPHS #### [address] [address] ALP [Catalytic activity/Vol] 137 U/L High 38-126 [facility] ([place] Comment on above: Performed By: #### P HOS, CKMB, CKMBM, MG, TROPHS #### [address] [address] ALT [Catalytic activity/Vol] 25 U/L Normal 12-55 [facility] ([place] Comment on above: Performed By: #### P HOS, CKMB, CKMBM, MG, TROPHS #### [address] [address] AST [Catalytic activity/Vol] 17 U/L Normal 8-34 [facility] ([place] Comment on above: Performed By: #### P HOS, CKMB, CKMBM, MG, TROPHS #### [address] [address] Bili Total 2.60 mg/dL High 0.20-1.20 [facility] ([place] Comment on above: Result Comment: Use of this assay is not recommended for patients undergoing treatment with eltrombopag due to the potential for falsely elevated results. Performed By: #### P HOS, CKMB, CKMBM, MG, TROPHS #### [place] [address] BUN/Creatinine Ratio 23.9 ratio High 10.0-22.0 [facility] ([place] Comment on above: Performed By: #### P HOS, CKMB, CKMBM, MG, TROPHS #### [place] [address] Calcium [Mass/Vol] 9.2 mg/dL Normal 8.7-10.4 [facility] ([place] Comment on above: Performed By: #### P HOS, CKMB, CKMBM, MG, TROPHS #### [place] [address] Chloride [Moles/Vol] 101 mmol/L Normal 98-110 [facility] ([place] Comment on above: Performed By: #### P HOS, CKMB, CKMBM, MG, TROPHS #### [place] [phone] CO2 [Moles/Vol] 26 mmol/L Normal 22-32 [facility] ([place] Comment on above: Performed By: #### P HOS, CKMB, CKMBM, MG, TROPHS #### [address] [address] Creatinine [Mass/Vol] 0.71 mg/dL Normal 0.60-1.40 [facility] ([place] Comment on above: Performed By: #### P HOS, CKMB, CKMBM, MG, TROPHS #### [address] [address] Electrolyte Balance 10.0 mEq/L Normal 4.0-15.0 [facility] [place] Comment on above: Performed By: #### P HOS, CKMB, CKMBM, MG, TROPHS #### [address] [address] Globulin 3.1 G/dL Normal 1.5-3.8 [facility] ([place] Comment on above: Performed By: #### P HOS, CKMB, CKMBM, MG, TROPHS #### [place] [id number] Glucose [Mass/Vol] 216 mg/dL High 70-110 [facility] ([place] Comment on above: Performed By: #### P HOS, CKMB, CKMBM, MG, TROPHS #### [place] [phone] Potassium [Moles/Vol] 4.3 mmol/L Normal 3.5-5.0 [facility] ([place] Comment on above: Performed By: #### P HOS, CKMB, CKMBM, MG, TROPHS #### [place] [address] Sodium [Moles/Vol] 137 mmol/L Normal 136-145 [facility] ([place] Comment on above: Performed By: #### P HOS, CKMB, CKMBM, MG, TROPHS #### [place] [address] Total Protein 6.3 G/dL Normal 5.7-8.2 [facility] ([place] Comment on above: Result Comment: No te - New Reference Range in effect 19 Performed By: #### P HOS, CKMB, CKMBM, MG, TROPHS #### [place] [address] Urea nitrogen [Mass/Vol] 17.0 mg/dL Normal 8.0-22.0 [facility] ([place] Comment on above: Performed By: #### P HOS, CKMB, CKMBM, MG, TROPHS #### [place] [address] LABORATORYOrdered By: SYSTEM SYSTEM on 12-05-2022 Albumin BCP dye [Mass/Vol] 3.2 G/dL Invalid Interpretation Code 3.2 - 4.8 G/dL AH ADM SS Albumin/Globulin [Mass ratio] 1.0 {ratio} Invalid Interpretation Code 0.9 - 1.6 ratio AH ADM SS ALP [Catalytic activity/Vol] 137 U/L Invalid Interpretation Code 38 - 126 U/L AH ADM SS ALT No additional P-5'-P [Catalytic activity/Vol] 25 U/L Invalid Interpretation Code 12 - 55 U/L AH ADM SS AST [Catalytic activity/Vol] 17 U/L Invalid Interpretation Code 8 - 34 U/L AH ADM SS Bilirubin [Mass/Vol] 2.60 mg/dL Invalid Interpretation Code 0.20 - 1.20 mg/dL AH ADM SS Comment on above: Interpretive Data: U se of this assay is not recommended for patients undergoing treatment with eltrombopag due to the potential for falsely elevated results. Globulin 3.1 G/dL Invalid Interpretation Code 1.5 - 3.8 G/dL ADM SS Protein [Mass/Vol] 6.3 G/dL Invalid Interpretation Code 5.7 - 8.2 G/dL ADM SS Comment on above: Interpretive Data: * *Note - New Reference Range in effect 19 .Auto Diffon 12-04-2022 Basophil, Absolute 0.1 10 3/mcL Normal 0.0-0.2 [facility] ([place] Comment on above: Performed By: #### P HOS, CKMB, CKMBM, MG, TROPHS #### [address] [address] Basophils/100 WBC (Bld) 0.6 % Normal 0.0-2.5 A [facility] ([place] Comment on above: Performed By: #### P HOS, CKMB, CKMBM, MG, TROPHS #### [address] [address] Eosinophil, Absolute 0.1 10 3/mcL Normal 0.0-0.4 [facility] ([place] Comment on above: Performed By: #### P HOS, CKMB, CKMBM, MG, TROPHS #### [address] [address] Eosinophils/100 WBC (Bld) 0.9 % Normal 0.0-7.0 [facility] ([place] Comment on above: Performed By: #### P HOS, CKMB, CKMBM, MG, TROPHS #### [address] [address] Lymphocyte, Absolute 1.0 10 3/mcL Normal 0.8-3.9 [facility] ([place]) Comment on above: Performed By: #### P HOS, CKMB, CKMBM, MG, TROPHS #### [address] [address] Lymphocytes/100 WBC (Bld) 5.8 % Low 10.0-50.0 [facility] ([place] Comment on above: Performed By: #### P HOS, CKMB, CKMBM, MG, TROPHS #### [address] [address] Monocyte, Absolute 0.9 10 3/mcL Normal 0.2-1.0 [facility] ([place] Comment on above: Performed By: #### P HOS, CKMB, CKMBM, MG, TROPHS #### [address] [address] Monocytes/100 WBC (Bld) 5.2 % Normal 1.7-13.0 A [facility] ([place] Comment on above: Performed By: #### P HOS, CKMB, CKMBM, MG, TROPHS #### [address] [address] Neutrophils/100 WBC (Bld) 87.5 % High 37.0-80.0 [facility] ([place] Comment on above: Performed By: #### P HOS, CKMB, CKMBM, MG, TROPHS #### [address] [address] .GFRon 12-04-2022 GFR 101 ml/min/1.73sqm Normal [facility] ([place] Comment on above: Result Comment: GFR Population mean for , Non- Americans Ages 20-29 = 116 mL/min/1.73 sq.m. Ages 30-39 = 107 mL/min/1.73 sq.m. Ages 40-49 = 99 mL/min/1.73 sq.m. Ages 50-59 = 93 mL/min/1.73 sq.m. Ages 60-69 = 85 mL/min/1.73 sq.m. Ages 70+ = 75 mL/min/1.73 sq.m. Chronic Kidney Disease: Less than 60 mL/min/1.73 square meters End Stage Renal Disease: Less than 15 mL/min/1.73 square meters Performed By: #### P HOS, CKMB, CKMBM, MG, TROPHS #### [address] [address] GFR Non- 83 ml/min/1.73sqm Normal [facility] ([place] Comment on above: Result Comment: GFR Population mean for , Non- Americans Ages 20-29 = 116 mL/min/1.73 sq.m. Ages 30-39 = 107 mL/min/1.73 sq.m. Ages 40-49 = 99 mL/min/1.73 sq.m. Ages 50-59 = 93 mL/min/1.73 sq.m. Ages 60-69 = 85 mL/min/1.73 sq.m. Ages 70+ = 75 mL/min/1.73 sq.m. Chronic Kidney Disease: Less than 60 mL/min/1.73 square meters End Stage Renal Disease: Less than 15 mL/min/1.73 square meters Performed By: #### P HOS, CKMB, CKMBM, MG, TROPHS #### [address] [address] .MDWon 12-04-2022 Monocyte Distribution Width 21.11 High 0.00-20.00 [facility] ([place]) Comment on above: Result Comment: For adults in ED, MDW>20.0 may be associated with a higher risk of sepsis during the first 12hrs of hospital admission Performed By: #### P HOS, CKMB, CKMBM, MG, TROPHS #### [address] [id number] .NEUABSon 12-04-2022 Neutrophil, Absolute 15.0 10 3/mcL High 2.9-6.2 A [facility] ([place]) Comment on above: Performed By: #### P HOS, CKMB, CKMBM, MG, TROPHS #### [address] [address] BMPon 12-04-2022 BUN/Creatinine Ratio 14 ratio Normal 7-27 [facility] ([place] Comment on above: Performed By: #### P HOS, CKMB, CKMBM, MG, TROPHS #### [address] [address] Calcium [Mass/Vol] 9.2 mg/dL Normal 8.4-10.2 [facility] ([place]) Comment on above: Performed By: #### P HOS, CKMB, CKMBM, MG, TROPHS #### [address] [address] Chloride [Moles/Vol] 99 mmol/L Normal 98-107 [facility] ([place]) Comment on above: Performed By: #### P HOS, CKMB, CKMBM, MG, TROPHS #### [address] [address] CO2 [Moles/Vol] 29 mmol/L Normal 22-29 [facility] ([place]) Comment on above: Performed By: #### P HOS, CKMB, CKMBM, MG, TROPHS #### [address] [address] Creatinine [Mass/Vol] 0.95 mg/dL Normal 0.70-1.30 [facility] ([place] Comment on above: Performed By: #### P HOS, CKMB, CKMBM, MG, TROPHS #### [address] [address] Electrolyte Balance 9.0 mEq/L Normal 4.0-15.0 [facility] [place] Comment on above: Performed By: #### P HOS, CKMB, CKMBM, MG, TROPHS #### [address] [address] Glucose [Mass/Vol] 321 mg/dL High 70-105 [facility] ([place] Comment on above: Performed By: #### P HOS, CKMB, CKMBM, MG, TROPHS #### [place] [address] Potassium [Moles/Vol] 4.5 mmol/L Normal 3.5-5.1 [facility] ([place] Comment on above: Performed By: #### P HOS, CKMB, CKMBM, MG, TROPHS #### [place] [id number] Sodium [Moles/Vol] 137 mmol/L Normal 136-145 [facility] ([place] Comment on above: Performed By: #### P HOS, CKMB, CKMBM, MG, TROPHS #### [place] [address] Urea nitrogen [Mass/Vol] 13 mg/dL Normal 7-18 [facility] ([place] Comment on above: Performed By: #### P HOS, CKMB, CKMBM, MG, TROPHS #### [place] [address] CBCon 12-04-2022 Erythrocyte distribution width (RBC) [Ratio] 14.1 % Normal 11.5-14.5 [facility] ([place] Comment on above: Performed By: #### P HOS, CKMB, CKMBM, MG, TROPHS #### [place] [address] Hematocrit (Bld) [Volume fraction] 46.5 % Normal 42.0-52.0 [facility] ([place] Comment on above: Performed By: #### P HOS, CKMB, CKMBM, MG, TROPHS #### [place] [address] Hgb 15.9 G/dL Normal 14.0-18.0 [facility] ([place] Comment on above: Performed By: #### P HOS, CKMB, CKMBM, MG, TROPHS #### [place] [address] MCH (RBC) [Entitic mass] 28.7 pg Normal 27.0-31.2 [facility] ([place] Comment on above: Performed By: #### P HOS, CKMB, CKMBM, MG, TROPHS #### [place] [address] MCHC 34.2 G/dL Normal 31.8-35.4 [facility] ([place] Comment on above: Performed By: #### P HOS, CKMB, CKMBM, MG, TROPHS #### [place] [address] MCV (RBC) [Entitic vol] 83.9 fL Normal 80.0-94.0 A [facility] ([place] Comment on above: Performed By: #### P HOS, CKMB, CKMBM, MG, TROPHS #### [place] [address] Platelet 255 10 3/mcL Normal 130-400 [facility] ([place] Comment on above: Performed By: #### P HOS, CKMB, CKMBM, MG, TROPHS #### [place] [address] Platelet mean volume (Bld) [Entitic vol] 9.1 fL Normal 7.4-10.4 [facility] ([place] Comment on above: Performed By: #### P HOS, CKMB, CKMBM, MG, TROPHS #### [place] [address] RBC 5.54 10 6/mcL Normal 4.04-6.13 [facility] ([place] Comment on above: Performed By: #### P HOS, CKMB, CKMBM, MG, TROPHS #### [place] [address] WBC 17.2 10 3/mcL High 4.6-10.8 [facility] ([place] Comment on above: Performed By: #### P HOS, CKMB, CKMBM, MG, TROPHS #### [place] [address] CK-Shanell 12-04-2022 Relative Index Not Valid Normal 0.0-4.5 [facility] ([place]) Comment on above: Result Comment: CPK <185 invalidates relative index Performed By: #### P HOS, CKMB, CKMBM, MG, TROPHS #### [facility] [address] [place] [id number] CK [Catalytic activity/Vol] 61 U/L Normal 7-185 [facility] ([place]) Comment on above: Result Comment: Spec imen slightly hemolyzed. Performed By: #### P HOS, CKMB, CKMBM, MG, TROPHS #### [facility] [address] [place] [id number] CKMBMon 12-04-2022 CK.MB [Mass/Vol] Not performed Normal 0.00-5.00 [facility] ([place] Comment on above: Result Comment: CKMB result not performed when CPK < 75 Note - New Reference Range in effect 19 Performed By: #### P HOS, CKMB, CKMBM, MG, TROPHS #### [place] [id number] [place] [id number] SOFT TISSUE NECK W/ CONTR Cash 12-04-2022 CT SOFT TISSUE NECK W/ CONTRAST ORIGINAL EXAMINATION: CT OF THE NECK SOFT TISSUE WITH CONTRAST 12/04/2022 TECHNIQUE: CT of the neck was performed with the administration of intravenous contrast. Multiplanar reformatted images are provided for review. Automated exposure control, iterative reconstruction, and/or weight based adjustment of the mA/kV was utilized to reduce the radiation dose to as low as reasonably achievable. COMPARISON: None. HISTORY: ORDERING SYSTEM PROVIDED HISTORY: Reason for Exam: abscesses Possible bug bite or abscess on back of neck, history of hypertension FINDINGS: Metal streak artifacts from dental hardware and quantum mottle from body habitus obscure some details. PHARYNX/LARYNX: No abnormal masslike or abscess enhancement of aero digestive structures. SALIVARY GLANDS/THYROID: Mild thyromegaly. Normal parotid and submandibular glands. LYMPH NODES: No abnormal pathologically enlarged, calcified, or cystic/necrotic lymphadenopathy. VASCULAR: Normal vascular contrast opacification. Larger artery calcifications are present. Retropharyngeal ICA courses. SOFT TISSUES: Suboccipital skin thickening and subcutaneous fat stranding with similar involvement over the left upper neck posterior to the elongated and edematous/enlarged SCM. No discrete fluid collection. BRAIN/ORBITS: Unremarkable imaged intracranial and intraorbital structures. SINUSES/MASTOID AIR CELLS: Clear imaged paranasal sinuses and mastoid air cells. Bilateral middle leonarda bullosa and paradoxical turns. LUNG APICES/SUPERIOR MEDIASTINUM: No focal consolidation of imaged upper lungs. No superior mediastinal lymphadenopathy. Normal imaged trachea. BONES: No aggressive appearing lytic or blastic bony lesion. Several maxillary mandibular teeth are missing. Degenerative spine. IMPRESSION: Cellulitic changes of the subcutaneous suboccipital and posterior left upper neck regions. The underlying posterior margin of the left SCM is enlarged/edematous, raising suspicion for underlying infectious/inflammator y or reactive myositis. No discrete fluid collection to suggest abscess. Consider evaluation with CPK, ESR, and CRP. Interpreted by: Edmund Chiang DO Preliminary Report By: Edmund Chiang DO Electronically signed By Edmund Chiang DO Dictated Date: 12/04/2022 12:05:37 PM Prelim Date: 12/04/2022 12:12:41 PM Sign Date: 12/04/2022 12:12:41 PM Ordering Provider: BOOGIE Escoto [facility] ([place]) LABORATORYOrdered By: SYSTEM SYSTEM on 12-04-2022 Troponin I.cardiac DL <= 0.01 ng/mL [Mass/Vol] 4.33 ng/L Invalid Interpretation Code 0.00 - 54.00 ng/L [facility] Comment on above: Interpretive Data: I f the High Sensitive Troponin result is below the 99th percentile value (<45 ng/L) at the first blood draw, at least two additional blood samples should be drawn before results are interpreted as negative for AMI. CK [Catalytic activity/Vol] 61 U/L Invalid Interpretation Code 7 - 185 U/L [facility] Comment on above: Result Comment: Spec imen slightly hemolyzed. Magnesium [Mass/Vol] 1.7 mg/dL Invalid Interpretation Code 1.6 - 2.4 mg/dL [facility] Phosphate [Mass/Vol] 3.6 mg/dL Invalid Interpretation Code 2.4 - 5.1 mg/dL [facility] Comment on above: Interpretive Data: * *Note - New Reference Range in effect 19 Troponin I.cardiac DL <= 0.01 ng/mL [Mass/Vol] ng/L Invalid Interpretation Code 0.00 - 54.00 ng/L [facility] Comment on above: Interpretive Data: I f the High Sensitive Troponin result is below the 99th percentile value (<45 ng/L) at the first blood draw, at least two additional blood samples should be drawn before results are interpreted as negative for AMI. Basophil, Absolute 0.1 103/mcL Invalid Interpretation Code 0.0 - 0.2 10^3/mcL AO Workflow SS Basophils/100 WBC (Bld) 0.6 % Invalid Interpretation Code 0.0 - 2.5 % AO Workflow SS Calcium [Mass/Vol] 9.2 mg/dL Invalid Interpretation Code 8.4 - 10.2 mg/dL AO ADM SS Chloride [Moles/Vol] 99 mmol/L Invalid Interpretation Code 98 - 107 mmol/L AO ADM SS CO2 [Moles/Vol] 29 mmol/L Invalid Interpretation Code 22 - 29 mmol/L AO ADM SS Creatinine [Mass/Vol] 0.95 mg/dL Invalid Interpretation Code 0.70 - 1.30 mg/dL AO ADM SS Electrolyte Balance 9.0 mEq/L Invalid Interpretation Code 4.0 - 15.0 mEq/L AO ADM SS Eosinophil, Absolute 0.1 103/mcL Invalid Interpretation Code 0.0 - 0.4 10^3/mcL AO Workflow SS Eosinophils/100 WBC (Bld) 0.9 % Invalid Interpretation Code 0.0 - 7.0 % AO Workflow SS Erythrocyte distribution width (RBC) [Ratio] 14.1 % Invalid Interpretation Code 11.5 - 14.5 % AO Workflow SS GFR/1.73 sq M.predicted among blacks MDRD (S/P/Bld) [Vol rate/Area] 101 ml/min/1.73sqm Invalid Interpretation Code AO Chemistry S Comment on above: Interpretive Data: GFR Population mean for , Non- Americans Ages 20-29 = 116 mL/min/1.73 sq.m. Ages 30-39 = 107 mL/min/1.73 sq.m. Ages 40-49 = 99 mL/min/1.73 sq.m. Ages 50-59 = 93 mL/min/1.73 sq.m. Ages 60-69 = 85 mL/min/1.73 sq.m. Ages 70+ = 75 mL/min/1.73 sq.m. Chronic Kidney Disease: Less than 60 mL/min/1.73 square meters End Stage Renal Disease: Less than 15 mL/min/1.73 square meters GFR/1.73 sq M.predicted among non-blacks MDRD (S/P/Bld) [Vol rate/Area] 83 ml/min/1.73sqm Invalid Interpretation Code AO Chemistry S Comment on above: Interpretive Data: GFR Population mean for , Non- Americans Ages 20-29 = 116 mL/min/1.73 sq.m. Ages 30-39 = 107 mL/min/1.73 sq.m. Ages 40-49 = 99 mL/min/1.73 sq.m. Ages 50-59 = 93 mL/min/1.73 sq.m. Ages 60-69 = 85 mL/min/1.73 sq.m. Ages 70+ = 75 mL/min/1.73 sq.m. Chronic Kidney Disease: Less than 60 mL/min/1.73 square meters End Stage Renal Disease: Less than 15 mL/min/1.73 square meters Glucose [Mass/Vol] 321 mg/dL Invalid Interpretation Code 70 - 105 mg/dL AO ADM SS Hematocrit (Bld) [Volume fraction] 46.5 % Invalid Interpretation Code 42.0 - 52.0 % AO Workflow SS Hemoglobin (Bld) [Mass/Vol] 15.9 G/dL Invalid Interpretation Code 14.0 - 18.0 G/dL AO Workflow SS Lymphocyte, Absolute 1.0 103/mcL Invalid Interpretation Code 0.8 - 3.9 10^3/mcL AO Workflow SS Lymphocytes/100 WBC (Bld) 5.8 % Invalid Interpretation Code 10.0 - 50.0 % AO Workflow SS MCH (RBC) [Entitic mass] 28.7 pg Invalid Interpretation Code 27.0 - 31.2 pg AO Workflow SS MCHC 34.2 G/dL Invalid Interpretation Code 31.8 - 35.4 G/dL AO Workflow SS MCV (RBC) [Entitic vol] 83.9 fL Invalid Interpretation Code 80.0 - 94.0 fL AO Workflow SS Monocyte distribution width Auto (Bld) [Entitic vol] 21.11 1 Invalid Interpretation Code 0.00 - 20.00 AO Workflow SS Comment on above: Result Comment: For adults in ED, MDW>20.0 may be associated with a higher risk of sepsis during the first 12hrs of hospital admission Monocyte, Absolute 0.9 103/mcL Invalid Interpretation Code 0.2 - 1.0 10^3/mcL AO Workflow SS Monocytes/100 WBC (Bld) 5.2 % Invalid Interpretation Code 1.7 - 13.0 % AO Workflow SS Neutrophil, Absolute 15.0 103/mcL Invalid Interpretation Code 2.9 - 6.2 10^3/mcL AO Workflow SS Neutrophils/100 WBC (Bld) 87.5 % Invalid Interpretation Code 37.0 - 80.0 % AO Workflow SS Platelet mean volume (Bld) [Entitic vol] 9.1 fL Invalid Interpretation Code 7.4 - 10.4 fL AO Workflow SS Platelets (Bld) [#/Vol] 255 103/mcL Invalid Interpretation Code 130 - 400 10^3/mcL AO Workflow SS Potassium [Moles/Vol] 4.5 mmol/L Invalid Interpretation Code 3.5 - 5.1 mmol/L AO ADM SS RBC (Bld) [#/Vol] 5.54 106/mcL Invalid Interpretation Code 4.04 - 6.13 10^6/mcL AO Workflow SS Sodium [Moles/Vol] 137 mmol/L Invalid Interpretation Code 136 - 145 mmol/L AO ADM SS Urea nitrogen [Mass/Vol] 13 mg/dL Invalid Interpretation Code 7 - 18 mg/dL AO ADM SS Urea nitrogen/Creatinine [Mass ratio] 14 ratio Invalid Interpretation Code 7 - 27 ratio AO ADM SS WBC (Bld) [#/Vol] 17.2 103/mcL Invalid Interpretation Code 4.6 - 10.8 10^3/mcL AO Workflow SS LABORATORYOrdered By: Megha Borrero on 12-04-2022 CK.MB [Mass/Vol] Not performed Invalid Interpretation Code 0.00 - 5.00 Chemistry S Comment on above: Result Comment: CKMB result not performed when CPK < 75 Interpretive Data: * *Note - New Reference Range in effect 19 Free T4 index Calc [Mass/Vol] Not Valid Invalid Interpretation Code 0.0 - 4.5 Chemistry S Comment on above: Result Comment: CPK <185 invalidates relative index MGon 12-04-2022 Magnesium [Mass/Vol] 1.7 mg/dL Normal 1.6-2.4 [facility] ([place]) Comment on above: Performed By: #### P HOS, CKMB, CKMBM, MG, TROPHS #### [place] [address] No Panel Informationon 12-04 Microscopic examination of blood, culture Culture has been received in lab and is no growth to date. Routine cultures are held for 5 days. [facility] Work Phone: PHOSon 12-04-2022 Phosphate [Mass/Vol] 3.6 mg/dL Normal 2.4-5.1 [facility] ([place]) Comment on above: Result Comment: No te - New Reference Range in effect 19 Performed By: #### P HOS, CKMB, CKMBM, MG, TROPHS #### [address] 12-04-2022 Troponin I High Sensitivity 4.33 ng/L Normal 0.00-54.00 [facility] ([place]) Comment on above: Result Comment: If t he High Sensitive Troponin result is below the 99th percentile value (<45 ng/L) at the first blood draw, at least two additional blood samples should be drawn before results are interpreted as negative for AMI. Performed By: #### P HOS, CKMB, CKMBM, MG, TROPHS #### [place] [address] Troponin I High Sensitivity <2.50 Normal 0.00-54.00 [facility] ([place]) Comment on above: Result Comment: If t he High Sensitive Troponin result is below the 99th percentile value (<45 ng/L) at the first blood draw, at least two additional blood samples should be drawn before results are interpreted as negative for AMI. Performed By: #### P HOS, CKMB, CKMBM, MG, TROPHS #### [place] [address] Absolute lymphocyte countOrd ered By: Dr. Bella on 07-30-2022 Lymphocytes Auto (Unsp spec) [#/Vol] 1.32 10*3/uL 0.83-4.51 [facility] Basophil percentageOrdered B y: Dr. Bella on 07-30-2022 Basophil percentage 0 [facility] WBC (Bld) 0.7 % 0-1 [facility] Chloride [Moles/Vol] 105 mmol/L 98-107 [facility] Eosinophils/100 WBC (Bld) 1.7 % 0-5 [facility] Glucose [Mass/Vol] 192 mg/dL 74-106 [facility] Comment on above: Fasting Glucose resu lt greater than or equal to 126 mg/dL suggests DIABETES MELLITUS per A.D.A. criteria. Neutrophils (Bld) [#/Vol] 5.0 10*3/uL 2.0-7.7 [facility] Neutrophils/100 WBC (Bld) 72.2 % 47-70 [facility] Potassium [Moles/Vol] 4.1 mmol/L 3.5-5.1 [facility] Sodium [Moles/Vol] 140 mmol/L 136-145 [facility] WBC (Bld) [#/Vol] 6.9 10*3/uL 4.4-11.0 [facility] Bilirubin Test strip Ql (U)O rdered By: Dr. Bella on 07-30-2022 Bilirubin Ql (U) Negative Negative [facility] Blood erythrocytes count (nu mber/volume)Ordered By: Dr. Bella on 07-30-2022 RBC (Bld) [#/Vol] 4.81 10*6/uL 4.6-6.2 [facility] Blood hemoglobin measurement (mass/volume)Ordered By: Dr. Bella on 07-30-2022 Hemoglobin (Bld) [Mass/Vol] 13.6 g/dL 13.0-16.5 [facility] Blood lymphocytes/100 leukoc ytesOrdered By: Dr. Bella on 07-30-2022 Lymphocytes/100 WBC (Bld) 19.0 % 19-41 [facility] Blood monocytes/100 leukocyt esOrdered By: Dr. Bella on 07-30-2022 Monocytes/100 WBC (Bld) 6.1 % 0-10 [facility] Blood platelet mean volumeOr dered By: Dr. Bella on 07-30-2022 Platelet mean volume (Bld) [Entitic vol] 10.5 fL 6.2-12.0 [facility] Determination of erythrocyte mean corpuscular volume (MCV)Ordered By: Dr. Bella on 07-30-2022 MCV (RBC) [Entitic vol] 89.0 fL 80-94 [facility] Glucose Glucometer (BldC) [M ass/Vol]Ordered By: Dr. Bella on 07-30-2022 Glucose [Mass/Vol] 168 mg/dL 74-106 [facility] Comment on above: MANAGEMENT OF PATIEN T CARE PER NURSING PROTOCOL Hematocrit Auto (Bld) [Volum e fraction]Ordered By: Dr. Bella on 07-30-2022 Hematocrit (Bld) [Volume fraction] 42.8 % 40-54 [facility] Ketones Test strip Ql (U)Ord ered By: Dr. Bella on 07-30-2022 Ketones Ql (U) Negative Negative [facility] Laboratory - Chemistry and C hemistry - challengeOrdered By: Dr. Bella on 07-30-2022 CO2 [Moles/Vol] 29.0 mmol/L 21.0-32.0 [facility] Urea nitrogen/Creatinine [Mass ratio] 14.1 mg/mg 10-20 [facility] Laboratory - Hematology and Cell countsOrdered By: Dr. Bella on 07-30-2022 Erythrocyte distribution width (RBC) [Entitic vol] 42.9 fL 35.1-43.9 [facility] Erythrocyte distribution width (RBC) [Ratio] 13.2 % 11.6-14.6 [facility] Immature granulocytes/100 WBC (Bld) 0.300 % 0.0-0.9 [facility] Comment on above: IG% - Immature Granu locytes (promyelocytes, myelocytes and metamyelocytes) > 1% indicates that a LEFT SHIFT is Present. MCH (RBC) [Entitic mass] 28.3 pg 27.0-32.0 [facility] Nucleated RBC/100 WBC (Bld) [Ratio] 0 % 0-5 [facility] MCHC Auto (RBC) [Mass/Vol]Or dered By: Dr. Bella on 07-30-2022 MCHC (RBC) [Mass/Vol] 31.8 g/dL 32-36 [facility] Mucus LM Ql (Urine sed)Order ed By: Dr. Bella on 07-30-2022 Mucus Ql (Urine sed) 0 SEEN /hpf [facility] Nitrite Test strip Ql (U)Ord ered By: Dr. Bella on 07-30-2022 Nitrite Ql (U) Negative Negative [facility] No Panel InformationOrdered By: Dr. Bella on 07-30-2022 Estimated Creatinine Clearance Calc 91.74 ml/min [facility] Estimated GFR (MDRD) Amer 121 mL/min >60 [facility] Comment on above: GFR Calc Estimated GFR (MDRD) Non-Af Amer 100 mL/min >60 [facility] Comment on above: Non- GFR Calc Platelets bldOrdered By: Dr. Bella on 07-30-2022 Platelets (Bld) [#/Vol] 253 10*3/uL 150-450 [facility] Protein Test strip Ql (U)Ord ered By: Dr. Bella on 07-30-2022 Protein Ql (U) Negative Negative [facility] Serum or plasma calcium david urement (mass/volume)Ordered By: Dr. Bella on 07-30-2022 Calcium [Mass/Vol] 8.8 mg/dL 8.5-10.1 [facility] Serum or plasma creatinine m easurement (mass/volume)Ordered By: Dr. Bella on 07-30-2022 Creatinine [Mass/Vol] 0.85 mg/dL 0.70-1.30 [facility] Comment on above: The validity of the calculated GFR & GFRAA in patients over 70 years has not been determined. Clinical correlation is essential. Serum or plasma urea nitroge n measurement (mass/volume)Ordered By: Dr. Bella on 07-30-2022 Urea nitrogen [Mass/Vol] 12 mg/dL 7-18 [facility] Squamous epithelial cells de tection in urine sediment by light microscopyOrdered By: Dr. Bella on 07-30-2022 Epithelial cells.squamous LM Ql (Urine sed) 0 SEEN /hpf 0-5 [facility] Thin prep Papanicolaou smear with manual screeningOrdered By: Dr. Bella on 07-30-2022 Thin prep Papanicolaou smear with manual screening 6 5-15 [facility] Urine blood detectionOrdered By: Dr. Bella on 07-30-2022 RBC Ql (U) Negative Negative [facility] RBC Ql (U) 0 SEEN /hpf 0-5 [facility] Urine clarityOrdered By: Dr. Bella on 07-30-2022 Clarity (U) Clear Clear [facility] Urine color determinationOrd ered By: Dr. Bella on 07-30-2022 Color (U) Yellow Yellow [facility] Urine glucose detectionOrder ed By: Dr. Bella on 07-30-2022 Glucose Ql (U) 250 mg/dl Normal [facility] Urine leukocyte esterase det ection by dipstickOrdered By: Dr. Bella on 07-30-2022 Leukocyte esterase Test strip Ql (U) Negative Negative [facility] Urine pHOrdered By: Dr. Bella o n 07-30-2022 pH (U) 6.0 [pH] 5.0 - 8.0 [facility] Urine sediment bacteria coun t by microscopy (number/high power field)Ordered By: Dr. Bella on 07-30-2022 Bacteria LM.HPF (Urine sed) [#/Area] 0 /[HPF] None Seen [facility] Urine specific gravity measu rementOrdered By: Dr. Bella on 07-30-2022 Specific gravity (U) [Rel density] 1.015 1.002-1.030 [facility] Urobilinogen Auto test strip Ql (U)Ordered By: Dr. Bella on 07-30-2022 Urobilinogen Ql (U) Normal mg/dl Normal [facility] Basophil percentageOrdered B y: David Cummins on 07-16-2022 Bilirubin [Mass/Vol] 1.90 mg/dL 0.20-1.00 [facility] Comment on above: For patients on eltr ombopag therapy, use of Dimension Spencer TBIL is not recommended. Chloride [Moles/Vol] 104 mmol/L 98-107 [facility] Cholesterol [Mass/Vol] 181 mg/dL <200 [facility] Comment on above: <200 mg/dL Desirable 200-240 mg/dL Borderline >240 mg/dL High Risk Glucose [Mass/Vol] 199 mg/dL 74-106 [facility] Comment on above: Fasting Glucose resu lt greater than or equal to 126 mg/dL suggests DIABETES MELLITUS per A.D.A. criteria. Potassium [Moles/Vol] 3.9 mmol/L 3.5-5.1 [facility] Protein [Mass/Vol] 6.8 g/dL 6.4-8.2 [facility] Sodium [Moles/Vol] 138 mmol/L 136-145 [facility] Triglyceride [Mass/Vol] 93 mg/dL <199 [facility] Comment on above: The drugs N-Acetylcy steine and Metamizole may falsely depress this assay.Serum Triglycerides Reference Interval Normal <150 mg/dL Borderline high 150 - 199 mg/dL High 200 - 499 mg/dL Very High > or = 500 mg/dL WBC (Bld) [#/Vol] 7.2 10*3/uL 4.4-11.0 [facility] Blood erythrocytes count (nu mber/volume)Ordered By: David Cummins on 07-16-2022 RBC (Bld) [#/Vol] 5.07 10*6/uL 4.6-6.2 [facility] Blood hemoglobin measurement (mass/volume)Ordered By: David Cummins on 07-16-2022 Hemoglobin (Bld) [Mass/Vol] 14.2 g/dL 13.0-16.5 [facility] Blood platelet mean volumeOr dered By: David Cummins on 07-16-2022 Platelet mean volume (Bld) [Entitic vol] 11.4 fL 6.2-12.0 [facility] Determination of erythrocyte mean corpuscular volume (MCV)Ordered By: David Cummins on 07-16-2022 MCV (RBC) [Entitic vol] 87.4 fL 80-94 [facility] Hematocrit Auto (Bld) [Volum e fraction]Ordered By: David Cummins on 07-16-2022 Hematocrit (Bld) [Volume fraction] 44.3 % 40-54 [facility] Iron measurement (mass/mass) Ordered By: David Cummins on 07-16-2022 Iron (Unsp spec) [Mass/Mass] 101 ug/dL 65-175 [facility] Laboratory - Chemistry and C hemistry - challengeOrdered By: David Cummins on 07-16-2022 ALP [Catalytic activity/Vol] 98 U/L 45-117 [facility] ALT [Catalytic activity/Vol] 31 U/L 16-61 [facility] CO2 [Moles/Vol] 29.0 mmol/L 21.0-32.0 [facility] Globulin (S) [Mass/Vol] 3.2 g/dL 2.2-4.2 [facility] Urea nitrogen/Creatinine [Mass ratio] 21.5 mg/mg 10-20 [facility] Laboratory - Hematology and Cell countsOrdered By: David Cummins on 07-16-2022 Erythrocyte distribution width (RBC) [Entitic vol] 42.5 fL 35.1-43.9 [facility] Erythrocyte distribution width (RBC) [Ratio] 13.3 % 11.6-14.6 [facility] MCH (RBC) [Entitic mass] 28.0 pg 27.0-32.0 [facility] MCHC Auto (RBC) [Mass/Vol]Or dered By: David Cummins on 07-16-2022 MCHC (RBC) [Mass/Vol] 32.1 g/dL 32-36 [facility] No Panel InformationOrdered By: David Cummins on 07-16-2022 Estimated GFR (MDRD) Amer 123 mL/min >60 [facility] [facility] Comment on above: GFR Calc Estimated GFR (MDRD) Non-Af Amer 102 mL/min >60 [facility] Comment on above: Non- GFR Calc Prostate Specific Antigen Screen 0.78 ng/mL 0.00-4.00 [facility] Comment on above: This test was perfor med using the TPSA assay method for the[facility] chemistry system. Values obtained with differentassay methods cannot be used interchangably.When changing PSA assays in the course of monitoring apatient, additional sequential testing should be carriedout to confirm baseline values. Total Iron Binding Capacity 269 ug/dL 250-450 [facility] Vitamin D 25-Hydroxy 65.5 ng/mL [facility] Comment on above: Vitamin D 25(OH) Sta tus Range Deficiency <20 ng/mL (50nmol/L) Insufficiency 20 - 30 ng/mL (50 - 75 nmol/L) Sufficiency 30 - 100 ng/mL (75 - 250 nmol/L) Toxicity >100 ng/mL (>250 nmol/L) Platelets bldOrdered By: Sixto Cummins on 07-16-2022 Platelets (Bld) [#/Vol] 308 10*3/uL 150-450 [facility] Serum or plasma albumin david urement (mass/volume)Ordered By: David Cummins on 07-16-2022 Albumin [Mass/Vol] 3.6 g/dL 3.2-5.0 [facility] Serum or plasma albumin/glob ulin mass ratioOrdered By: David Cummins on 07-16-2022 Albumin/Globulin [Mass ratio] 1.1 {ratio} 0.9-2.4 [facility] Serum or plasma calcium david urement (mass/volume)Ordered By: David Cummins on 07-16-2022 Calcium [Mass/Vol] 8.7 mg/dL 8.5-10.1 [facility] Serum or plasma cholesterol in HDL measurement (mass/volume)Ordered By: David Cummins on 07-16-2022 Cholesterol in HDL [Mass/Vol] 41 mg/dL >40 [facility] Comment on above: The drugs N-Acetylcy steine and Metamizole may falsely depress this assay. Reference Range HDL <40 mg/dL Low HDL Cholesterol HDL >or= 60 mg/dL High HDL Cholesterol Serum or plasma cholesterol in VLDL measurement (mass/volume)Ordered By: David Cummins on 07-16-2022 Cholesterol in VLDL [Mass/Vol] 19 mg/dL 5-40 [facility] Serum or plasma creatinine m easurement (mass/volume)Ordered By: David Cummins on 07-16-2022 Creatinine [Mass/Vol] 0.84 mg/dL 0.70-1.30 [facility] Comment on above: The validity of the calculated GFR & GFRAA in patients over 70 years has not been determined. Clinical correlation is essential. Serum or plasma low density lipoprotein (LDL) cholesterol measurement (mass/volume)Ordered By: David Cummins on 07-16-2022 Cholesterol in LDL [Mass/Vol] 121 mg/dL 0-130 [facility] Serum or plasma urea nitroge n measurement (mass/volume)Ordered By: David Cummins 07-16-2022 Urea nitrogen [Mass/Vol] 18 mg/dL 7-18 [facility] Thin prep Papanicolaou smear with manual screeningOrdered By: David Cummins 07-16-2022 Thin prep Papanicolaou smear with manual screening 20 U/L 15-37 [facility] Thin prep Papanicolaou smear with manual screening 5 5-15 [facility] Whole blood hemoglobin A1c/t otal hemoglobin ratio (mass fraction)Ordered By: David Cummins on 07-16-2022 HbA1c (Bld) [Mass fraction] 9.5 % 3.8-5.6 [facility] Comment on above: Normal < 5.7 % Predi abetic 5.7 - 6.4 % Diabetic >or= 6.5 % Please note range changes. Absolute lymphocyte countOrd ered By: Dr. Cristina on 07-12-2022 Lymphocytes Auto (Unsp spec) [#/Vol] 1.47 10*3/uL 0.83-4.51 [facility] Basophil percentageOrdered B y: Dr. Cristina on 07-12-2022 Basophils/100 WBC (Bld) 0.7 % 0-1 [facility] Bilirubin [Mass/Vol] 1.80 mg/dL 0.20-1.00 [facility] Comment on above: For patients on eltr ombopag therapy, use of Dimension Spencer TBIL is not recommended. Chloride [Moles/Vol] 105 mmol/L 98-107 [facility] Cholesterol [Mass/Vol] 181 mg/dL <200 [facility] Comment on above: <200 mg/dL Desirable 200-240 mg/dL Borderline >240 mg/dL High Risk Eosinophils/100 WBC (Bld) 1.1 % 0-5 [facility] Glucose [Mass/Vol] 204 mg/dL 74-106 [facility] Comment on above: Glucose result great er than or equal to 200 mg/dLsuggests DIABETES MELLITUS per A.D.A. criteria. Neutrophils (Bld) [#/Vol] 5.0 10*3/uL 2.0-7.7 [facility] Neutrophils/100 WBC (Bld) 70.3 % 47-70 [facility] Potassium [Moles/Vol] 4.0 mmol/L 3.5-5.1 [facility] Protein [Mass/Vol] 6.6 g/dL 6.4-8.2 [facility] Sodium [Moles/Vol] 135 mmol/L 136-145 [facility] Triglyceride [Mass/Vol] 105 mg/dL <199 [facility] Comment on above: The drugs N-Acetylcy steine and Metamizole may falsely depress this assay.Serum Triglycerides Reference Interval Normal <150 mg/dL Borderline high 150 - 199 mg/dL High 200 - 499 mg/dL Very High > or = 500 mg/dL WBC (Bld) [#/Vol] 7.1 10*3/uL 4.4-11.0 [facility] Blood erythrocytes count (nu mber/volume)Ordered By: Dr. Cristina on 07-12-2022 RBC (Bld) [#/Vol] 5.12 10*6/uL 4.6-6.2 [facility] Blood hemoglobin measurement (mass/volume)Ordered By: Dr. Cristina on 07-12-2022 Hemoglobin (Bld) [Mass/Vol] 14.4 g/dL 13.0-16.5 [facility] Blood lymphocytes/100 leukoc ytesOrdered By: Dr. Cristina on 07-12-2022 Lymphocytes/100 WBC (Bld) 20.6 % 19-41 [facility] Blood monocytes/100 leukocyt esOrdered By: Dr. Cristina on 07-12-2022 Monocytes/100 WBC (Bld) 6.9 % 0-10 [facility] Blood platelet mean volumeOr dered By: Dr. Cristina on 07-12-2022 Platelet mean volume (Bld) [Entitic vol] 11.0 fL 6.2-12.0 [facility] Determination of erythrocyte mean corpuscular volume (MCV)Ordered By: Dr. Cristina on 07-12-2022 MCV (RBC) [Entitic vol] 88.9 fL 80-94 [facility] Glucose Glucometer (BldC) [M ass/Vol]Ordered By: Dr. Celis on 07-12-2022 Glucose [Mass/Vol] 277 mg/dL 74-106 [facility] Comment on above: MANAGEMENT OF PATIEN T CARE PER NURSING PROTOCOL Hematocrit Auto (Bld) [Volum e fraction]Ordered By: Dr. Cristina on 07-12-2022 Hematocrit (Bld) [Volume fraction] 45.5 % 40-54 [facility] Laboratory - Chemistry and C hemistry - challengeOrdered By: Dr. Cristina on 07-12-2022 ALP [Catalytic activity/Vol] 90 U/L 45-117 [facility] ALT [Catalytic activity/Vol] 32 U/L 16-61 [facility] CO2 [Moles/Vol] 27.0 mmol/L 21.0-32.0 [facility] Globulin (S) [Mass/Vol] 3.3 g/dL 2.2-4.2 [facility] Urea nitrogen/Creatinine [Mass ratio] 15.3 mg/mg 10-20 [facility] Laboratory - Hematology and Cell countsOrdered By: Dr. Cristina on 07-12-2022 Erythrocyte distribution width (RBC) [Entitic vol] 43.1 fL 35.1-43.9 [facility] Erythrocyte distribution width (RBC) [Ratio] 13.2 % 11.6-14.6 [facility] Immature granulocytes/100 WBC (Bld) 0.400 % 0.0-0.9 [facility] Comment on above: IG% - Immature Granu locytes (promyelocytes, myelocytes and metamyelocytes) > 1% indicates that a LEFT SHIFT is Present. MCH (RBC) [Entitic mass] 28.1 pg 27.0-32.0 [facility] Nucleated RBC/100 WBC (Bld) [Ratio] 0 % 0-5 [facility] MCHC Auto (RBC) [Mass/Vol]Or dered By: Dr. Cristina on 07-12-2022 MCHC (RBC) [Mass/Vol] 31.6 g/dL 32-36 [facility] No Panel InformationOrdered By: Dr. Cristina on 07-12-2022 Estimated Creatinine Clearance Calc 99.97 ml/min [facility] Estimated GFR (MDRD) Amer 134 mL/min >60 [facility] Comment on above: GFR Calc Estimated GFR (MDRD) Non-Af Amer 110 mL/min >60 [facility] Comment on above: Non- GFR Calc Platelets bldOrdered By: Dr. Cristina on 07-12-2022 Platelets (Bld) [#/Vol] 300 10*3/uL 150-450 [facility] Serum or plasma albumin david urement (mass/volume)Ordered By: Dr. Cristina on 07-12-2022 Albumin [Mass/Vol] 3.3 g/dL 3.2-5.0 [facility] Serum or plasma albumin/glob ulin mass ratioOrdered By: Dr. Cristina on 07-12-2022 Albumin/Globulin [Mass ratio] 1.0 {ratio} 0.9-2.4 [facility] Serum or plasma calcium david urement (mass/volume)Ordered By: Dr. Cristina on 07-12-2022 Calcium [Mass/Vol] 8.7 mg/dL 8.5-10.1 [facility] Serum or plasma cholesterol in HDL measurement (mass/volume)Ordered By: Dr. Cristina on 07-12-2022 Cholesterol in HDL [Mass/Vol] 40 mg/dL >40 [facility] Comment on above: The drugs N-Acetylcy steine and Metamizole may falsely depress this assay. Reference Range HDL <40 mg/dL Low HDL Cholesterol HDL >or= 60 mg/dL High HDL Cholesterol Serum or plasma cholesterol in VLDL measurement (mass/volume)Ordered By: Dr. Cristina on 07-12-2022 Cholesterol in VLDL [Mass/Vol] 21 mg/dL 5-40 [facility] Serum or plasma creatinine m easurement (mass/volume)Ordered By: Dr. Cristina on 07-12-2022 Creatinine [Mass/Vol] 0.78 mg/dL 0.70-1.30 [facility] Comment on above: The validity of the calculated GFR & GFRAA in patients over 70 years has not been determined. Clinical correlation is essential. Serum or plasma low density lipoprotein (LDL) cholesterol measurement (mass/volume)Ordered By: Dr. Cristina on 07-12-2022 Cholesterol in LDL [Mass/Vol] 120 mg/dL 0-130 [facility] Serum or plasma urea nitroge n measurement (mass/volume)Ordered By: Dr. Cristina on 07-12-2022 Urea nitrogen [Mass/Vol] 12 mg/dL 7-18 [facility] Thin prep Papanicolaou smear with manual screeningOrdered By: Dr. Cristina on 07-12-2022 Thin prep Papanicolaou smear with manual screening 16 U/L 15-37 [facility] Thin prep Papanicolaou smear with manual screening 3 5-15 [facility] Whole blood hemoglobin A1c/t otal hemoglobin ratio (mass fraction)Ordered By: Dr. Cristina on 07-12-2022 HbA1c (Bld) [Mass fraction] 9.3 % 3.8-5.6 [facility] Comment on above: Normal < 5.7 % Predi abetic 5.7 - 6.4 % Diabetic >or= 6.5 % Please note range changes. Absolute lymphocyte countOrd ered By: Dr. Hurley on 07-11-2022 Lymphocytes Auto (Unsp spec) [#/Vol] 1.53 10*3/uL 0.83-4.51 [facility] Basophil percentageOrdered B y: Dr. Hurley on 07-11-2022 Basophils/100 WBC (Bld) 0.7 % 0-1 [facility] Chloride [Moles/Vol] 104 mmol/L 98-107 [facility] Eosinophils/100 WBC (Bld) 0.9 % 0-5 [facility] Glucose [Mass/Vol] 185 mg/dL 74-106 [facility] Comment on above: Fasting Glucose resu lt greater than or equal to 126 mg/dL suggests DIABETES MELLITUS per A.D.A. criteria. Neutrophils (Bld) [#/Vol] 5.5 10*3/uL 2.0-7.7 [facility] Neutrophils/100 WBC (Bld) 72.4 % 47-70 [facility] Potassium [Moles/Vol] 3.9 mmol/L 3.5-5.1 [facility] Sodium [Moles/Vol] 136 mmol/L 136-145 [facility] WBC (Bld) [#/Vol] 7.5 10*3/uL 4.4-11.0 [facility] Blood erythrocytes count (nu mber/volume)Ordered By: Dr. Hurley on 07-11-2022 RBC (Bld) [#/Vol] 5.32 10*6/uL 4.6-6.2 [facility] Blood hemoglobin measurement (mass/volume)Ordered By: Dr. Hurley on 07-11-2022 Hemoglobin (Bld) [Mass/Vol] 15.1 g/dL 13.0-16.5 [facility] Blood lymphocytes/100 leukoc ytesOrdered By: Dr. Hurley on 07-11-2022 Lymphocytes/100 WBC (Bld) 20.3 % 19-41 [facility] Blood monocytes/100 leukocyt esOrdered By: Dr. Hurley on 07-11-2022 Monocytes/100 WBC (Bld) 5.2 % 0-10 [facility] Blood platelet mean volumeOr dered By: Dr. Hurley on 07-11-2022 Platelet mean volume (Bld) [Entitic vol] 10.4 fL 6.2-12.0 [facility] Determination of erythrocyte mean corpuscular volume (MCV)Ordered By: Dr. Hurley on 07-11-2022 MCV (RBC) [Entitic vol] 88.0 fL 80-94 [facility] Glucose Glucometer (BldC) [M ass/Vol]on 07-11-2022 Glucose [Mass/Vol] 133 mg/dL 74-106 [facility] Comment on above: MANAGEMENT OF PATIEN T CARE PER NURSING PROTOCOL Hematocrit Auto (Bld) [Volum e fraction]Ordered By: Dr. Hurley on 07-11-2022 Hematocrit (Bld) [Volume fraction] 46.8 % 40-54 [facility] INR in Blood by Coagulation assayOrdered By: Dr. Hurley on 07-11-2022 INR Coag (Bld) [Relative time] 1.1 {INR} [facility] Laboratory - Chemistry and C hemistry - challengeOrdered By: Dr. Hurley on 07-11-2022 CO2 [Moles/Vol] 32.0 mmol/L 21.0-32.0 [facility] Urea nitrogen/Creatinine [Mass ratio] 15.4 mg/mg 10-20 [facility] Laboratory - CoagulationOrde red By: Dr. Hurley on 07-11-2022 aPTT Coag (Bld) [Time] 26.8 s 24.1-36.2 [facility] PT Coag (PPP) [Time] 13.6 s 11.7-14.9 [facility] Laboratory - Hematology and Cell countsOrdered By: Dr. Hurley on 07-11-2022 Erythrocyte distribution width (RBC) [Entitic vol] 42.4 fL 35.1-43.9 [facility] Erythrocyte distribution width (RBC) [Ratio] 13.2 % 11.6-14.6 [facility] Immature granulocytes/100 WBC (Bld) 0.500 % 0.0-0.9 [facility] Comment on above: IG% - Immature Granu locytes (promyelocytes, myelocytes and metamyelocytes) > 1% indicates that a LEFT SHIFT is Present. MCH (RBC) [Entitic mass] 28.4 pg 27.0-32.0 [facility] Nucleated RBC/100 WBC (Bld) [Ratio] 0 % 0-5 [facility] MCHC Auto (RBC) [Mass/Vol]Or dered By: Dr. Hurley on 07-11-2022 MCHC (RBC) [Mass/Vol] 32.3 g/dL 32-36 [facility] No Panel InformationOrdered By: Dr. Hurley on 07-11-2022 Estimated GFR (MDRD) Amer 123 mL/min >60 [facility] Comment on above: GFR Calc Estimated GFR (MDRD) Non-Af Amer 101 mL/min >60 [facility] Comment on above: Non- GFR Calc Troponin I High Sensitivity 8 pg/mL 3.0-78.0 [facility] Comment on above: Please Note: New María t Units and Gender Specific Reference Ranges. For more information see Policy Stat Procedure [facility] High Sensitivity Troponin (TNIH) and attachments. Platelets bldOrdered By: Dr. Hurley on 07-11-2022 Platelets (Bld) [#/Vol] 320 10*3/uL 150-450 [facility] Serum or plasma calcium david urement (mass/volume)Ordered By: Dr. Hurley on 07-11-2022 Calcium [Mass/Vol] 9.4 mg/dL 8.5-10.1 [facility] Serum or plasma creatinine m easurement (mass/volume)Ordered By: Dr. Hurley on 07-11-2022 Creatinine [Mass/Vol] 0.84 mg/dL 0.70-1.30 [facility] Comment on above: The validity of the calculated GFR & GFRAA in patients over 70 years has not been determined. Clinical correlation is essential. Serum or plasma urea nitroge n measurement (mass/volume)Ordered By: Dr. Hurley on 07-11-2022 Urea nitrogen [Mass/Vol] 13 mg/dL 7-18 [facility] Thin prep Papanicolaou smear with manual screeningOrdered By: Dr. Hurley on 07-11-2022 Thin prep Papanicolaou smear with manual screening 0 5-15 [facility] Basophil percentageOrdered B y: David Cummins on 04-30-2022 Bilirubin [Mass/Vol] 1.60 mg/dL 0.20-1.00 [facility] Comment on above: For patients on eltr ombopag therapy, use of Dimension Spencer TBIL is not recommended. Chloride [Moles/Vol] 107 mmol/L 98-107 [facility] Cholesterol [Mass/Vol] 202 mg/dL <200 [facility] Comment on above: <200 mg/dL Desirable 200-240 mg/dL Borderline >240 mg/dL High Risk Glucose [Mass/Vol] 191 mg/dL 74-106 [facility] Comment on above: Fasting Glucose resu lt greater than or equal to 126 mg/dL suggests DIABETES MELLITUS per A.D.A. criteria. Potassium [Moles/Vol] 3.9 mmol/L 3.5-5.1 [facility] Protein [Mass/Vol] 6.6 g/dL 6.4-8.2 [facility] Sodium [Moles/Vol] 142 mmol/L 136-145 [facility] Triglyceride [Mass/Vol] 99 mg/dL <199 [facility] Comment on above: The drugs N-Acetylcy steine and Metamizole may falsely depress this assay.Serum Triglycerides Reference Interval Normal <150 mg/dL Borderline high 150 - 199 mg/dL High 200 - 499 mg/dL Very High > or = 500 mg/dL WBC (Bld) [#/Vol] 6.8 10*3/uL 4.4-11.0 [facility] Blood erythrocytes count (nu mber/volume)Ordered By: David Cummins on 04-30-2022 RBC (Bld) [#/Vol] 5.01 10*6/uL 4.6-6.2 [facility] Blood hemoglobin measurement (mass/volume)Ordered By: David Cummins on 04-30-2022 Hemoglobin (Bld) [Mass/Vol] 14.4 g/dL 13.0-16.5 [facility] Blood platelet mean volumeOr dered By: David Cummins on 04-30-2022 Platelet mean volume (Bld) [Entitic vol] 11.4 fL 6.2-12.0 [facility] Determination of erythrocyte mean corpuscular volume (MCV)Ordered By: David Cummins on 04-30-2022 MCV (RBC) [Entitic vol] 88.0 fL 80-94 [facility] Hematocrit Auto (Bld) [Volum e fraction]Ordered By: David Cummins on 04-30-2022 Hematocrit (Bld) [Volume fraction] 44.1 % 40-54 [facility] Iron measurement (mass/mass) Ordered By: David Cummins on 04-30-2022 Iron (Unsp spec) [Mass/Mass] 72 ug/dL 65-175 [facility] Laboratory - Chemistry and C hemistry - challengeOrdered By: David Cummins on 04-30-2022 ALP [Catalytic activity/Vol] 97 U/L 45-117 [facility] ALT [Catalytic activity/Vol] 25 U/L 16-61 [facility] CO2 [Moles/Vol] 30.0 mmol/L 21.0-32.0 [facility] Globulin (S) [Mass/Vol] 3.3 g/dL 2.2-4.2 [facility] Urea nitrogen/Creatinine [Mass ratio] 23.1 mg/mg 10-20 [facility] Laboratory - Hematology and Cell countsOrdered By: David Cummins on 04-30-2022 Erythrocyte distribution width (RBC) [Entitic vol] 42.0 fL 35.1-43.9 [facility] Erythrocyte distribution width (RBC) [Ratio] 13.1 % 11.6-14.6 [facility] MCH (RBC) [Entitic mass] 28.7 pg 27.0-32.0 [facility] MCHC Auto (RBC) [Mass/Vol]Or dered By: David Cummins on 04-30-2022 MCHC (RBC) [Mass/Vol] 32.7 g/dL 32-36 [facility] No Panel InformationOrdered By: David Cummins on 04-30-2022 Estimated GFR (MDRD) Amer 126 mL/min >60 [facility] Comment on above: GFR Calc Estimated GFR (MDRD) Non-Af Amer 104 mL/min >60 [facility] Comment on above: Non- GFR Calc Total Iron Binding Capacity 270 ug/dL 250-450 [facility] Vitamin D 25-Hydroxy 27.8 ng/mL [facility] Comment on above: Vitamin D 25(OH) Sta tus Range Deficiency <20 ng/mL (50nmol/L) Insufficiency 20 - 30 ng/mL (50 - 75 nmol/L) Sufficiency 30 - 100 ng/mL (75 - 250 nmol/L) Toxicity >100 ng/mL (>250 nmol/L) Platelets bldOrdered By: Sixto Cummins on 04-30-2022 Platelets (Bld) [#/Vol] 249 10*3/uL 150-450 [facility] Serum or plasma albumin david urement (mass/volume)Ordered By: David Cummins on 04-30-2022 Albumin [Mass/Vol] 3.3 g/dL 3.2-5.0 [facility] Serum or plasma albumin/glob ulin mass ratioOrdered By: David Cummins on 04-30-2022 Albumin/Globulin [Mass ratio] 1.0 {ratio} 0.9-2.4 [facility] Serum or plasma calcium david urement (mass/volume)Ordered By: David Cummins on 04-30-2022 Calcium [Mass/Vol] 8.8 mg/dL 8.5-10.1 [facility] Serum or plasma cholesterol in HDL measurement (mass/volume)Ordered By: David Cummins on 04-30-2022 Cholesterol in HDL [Mass/Vol] 47 mg/dL >40 [facility] Comment on above: The drugs N-Acetylcy steine and Metamizole may falsely depress this assay. Reference Range HDL <40 mg/dL Low HDL Cholesterol HDL >or= 60 mg/dL High HDL Cholesterol Serum or plasma cholesterol in VLDL measurement (mass/volume)Ordered By: David Cummins on 04-30-2022 Cholesterol in VLDL [Mass/Vol] 20 mg/dL 5-40 [facility] Serum or plasma creatinine m easurement (mass/volume)Ordered By: David Cummins on 04-30-2022 Creatinine [Mass/Vol] 0.82 mg/dL 0.70-1.30 [facility] Comment on above: The validity of the calculated GFR & GFRAA in patients over 70 years has not been determined. Clinical correlation is essential. Serum or plasma low density lipoprotein (LDL) cholesterol measurement (mass/volume)Ordered By: David Cummins on 04-30-2022 Cholesterol in LDL [Mass/Vol] 135 mg/dL 0-130 [facility] Serum or plasma urea nitroge n measurement (mass/volume)Ordered By: [facility] Placido on 04-30-2022 Urea nitrogen [Mass/Vol] 19 mg/dL 7-18 [facility] Thin prep Papanicolaou smear with manual screeningOrdered By: [facility] Placido on 04-30-2022 Thin prep Papanicolaou smear with manual screening 15 U/L 15-37 [facility] Thin prep Papanicolaou smear with manual screening 5 5-15 [facility] Whole blood hemoglobin A1c/t otal hemoglobin ratio (mass fraction)Ordered By: David Cummins on 04-30-2022 HbA1c (Bld) [Mass fraction] 9.3 % 3.8-5.6 [facility] Comment on above: Normal < 5.7 % Predi abetic 5.7 - 6.4 % Diabetic >or= 6.5 % Please note range changes. Basophil percentageOrdered B y: David Cummins on 01-15-2022 Bilirubin [Mass/Vol] 1.60 mg/dL 0.20-1.00 [facility] Comment on above: For patients on eltr ombopag therapy, use of Dimension [facility] TBIL is not recommended. Chloride [Moles/Vol] 104 mmol/L 98-107 [facility] Cholesterol [Mass/Vol] 281 mg/dL <200 [facility] Comment on above: <200 mg/dL Desirable 200-240 mg/dL Borderline >240 mg/dL High Risk Glucose [Mass/Vol] 138 mg/dL 74-106 [facility] Comment on above: Fasting Glucose resu lt greater than or equal to 126 mg/dL suggests DIABETES MELLITUS per A.D.A. criteria. Potassium [Moles/Vol] 3.9 mmol/L 3.5-5.1 [facility] Protein [Mass/Vol] 6.5 g/dL 6.4-8.2 [facility] Sodium [Moles/Vol] 139 mmol/L 136-145 [facility] Triglyceride [Mass/Vol] 125 mg/dL <199 [facility] Comment on above: The drugs N-Acetylcy steine and Metamizole may falsely depress this assay.Serum Triglycerides Reference Interval Normal <150 mg/dL Borderline high 150 - 199 mg/dL High 200 - 499 mg/dL Very High > or = 500 mg/dL Laboratory - Chemistry and C hemistry - challengeOrdered By: David Cummins on 01-15-2022 ALP [Catalytic activity/Vol] 97 U/L 45-117 [facility] ALT [Catalytic activity/Vol] 25 U/L 16-61 [facility] CO2 [Moles/Vol] 29.0 mmol/L 21.0-32.0 [facility] Globulin (S) [Mass/Vol] 3.2 g/dL 2.2-4.2 [facility] Urea nitrogen/Creatinine [Mass ratio] 20.6 mg/mg 10-20 [facility] No Panel InformationOrdered By: David Cummins on 01-15-2022 Estimated GFR (MDRD) Amer 135 mL/min >60 [facility] Comment on above: GFR Calc Estimated GFR (MDRD) Non-Af Amer 112 mL/min >60 [facility] Comment on above: Non- GFR Calc Vitamin D 25-Hydroxy 24.0 ng/mL [facility] Comment on above: Vitamin D 25(OH) Sta tus Range Deficiency <20 ng/mL (50nmol/L) Insufficiency 20 - 30 ng/mL (50 - 75 nmol/L) Sufficiency 30 - 100 ng/mL (75 - 250 nmol/L) Toxicity >100 ng/mL (>250 nmol/L) Serum or plasma albumin david urement (mass/volume)Ordered By: David Cummins on 01-15-2022 Albumin [Mass/Vol] 3.3 g/dL 3.2-5.0 [facility] Serum or plasma albumin/glob ulin mass ratioOrdered By: David Cummins on 01-15-2022 Albumin/Globulin [Mass ratio] 1.0 {ratio} 0.9-2.4 [facility] Serum or plasma calcium david urement (mass/volume)Ordered By: David Cummins on 01-15-2022 Calcium [Mass/Vol] 8.7 mg/dL 8.5-10.1 [facility] Serum or plasma cholesterol in HDL measurement (mass/volume)Ordered By: David Cummins on 01-15-2022 Cholesterol in HDL [Mass/Vol] 44 mg/dL >40 [facility] Comment on above: The drugs N-Acetylcy steine and Metamizole may falsely depress this assay. Reference Range HDL <40 mg/dL Low HDL Cholesterol HDL >or= 60 mg/dL High HDL Cholesterol Serum or plasma cholesterol in VLDL measurement (mass/volume)Ordered By: David Cummins on 01-15-2022 Cholesterol in VLDL [Mass/Vol] 25 mg/dL 5-40 [facility] Serum or plasma creatinine m easurement (mass/volume)Ordered By: David Cummins on 01-15-2022 Creatinine [Mass/Vol] 0.78 mg/dL 0.70-1.30 [facility] Comment on above: The validity of the calculated GFR & GFRAA in patients over 70 years has not been determined. Clinical correlation is essential. Serum or plasma low density lipoprotein (LDL) cholesterol measurement (mass/volume)Ordered By: David Cummins on 01-15-2022 Cholesterol in LDL [Mass/Vol] 212 mg/dL 0-130 [facility] Serum or plasma urea nitroge n measurement (mass/volume)Ordered By: David Cummins on 01-15-2022 Urea nitrogen [Mass/Vol] 16 mg/dL 7-18 [facility] Thin prep Papanicolaou smear with manual screeningOrdered By: David Cummins on 01-15-2022 Thin prep Papanicolaou smear with manual screening 16 U/L 15-37 [facility] Thin prep Papanicolaou smear with manual screening 6 5-15 [facility] Whole blood hemoglobin A1c/t otal hemoglobin ratio (mass fraction)Ordered By: David Cummins on 01-15-2022 HbA1c (Bld) [Mass fraction] 8.8 % 3.8-5.6 [facility] Comment on above: Normal < 5.7 % Predi abetic 5.7 - 6.4 % Diabetic >or= 6.5 % Please note range changes. Absolute lymphocyte counton 08-14-2021 Lymphocytes Auto (Unsp spec) [#/Vol] 1.26 10*3/uL 0.83-4.51 [facility] Work Phone: Basophil percentageon 2021 Basophils/100 WBC (Bld) 0.5 % 0-1 [facility] Work Phone: Chloride [Moles/Vol] 95 mmol/L 98-107 [facility] Work Phone: Eosinophils/100 WBC (Bld) 0.6 % 0-5 [facility] Work Phone: Glucose [Mass/Vol] 331 mg/dL 74-106 [facility] Work Phone: Comment on above: Glucose result great er than or equal to 200 mg/dLsuggests DIABETES MELLITUS per A.D.A. criteria. Neutrophils (Bld) [#/Vol] 12.9 10*3/uL 2.0-7.7 [facility] Work Phone: Neutrophils/100 WBC (Bld) 82.1 % 47-70 [facility] Work Phone: Potassium [Moles/Vol] 4.1 mmol/L 3.5-5.1 [facility] Work Phone: Sodium [Moles/Vol] 133 mmol/L 136-145 [facility] Work Phone: WBC (Bld) [#/Vol] 15.7 10*3/uL 4.4-11.0 [facility] Work Phone: Blood erythrocytes count (nu mber/volume)on 08-14-2021 RBC (Bld) [#/Vol] 4.28 10*6/uL 4.6-6.2 [facility] Work Phone: [phone] Blood hemoglobin measurement (mass/volume)on 08-14-2021 Hemoglobin (Bld) [Mass/Vol] 12.1 g/dL 13.0-16.5 [facility] Work Phone: Blood lymphocytes/100 leukoc yteson 08-14-2021 Lymphocytes/100 WBC (Bld) 8.0 % 19-41 [facility] Work Phone: Blood monocytes/100 leukocyt eson 08-14-2021 Monocytes/100 WBC (Bld) 6.4 % 0-10 [facility] Work Phone: Blood platelet mean volumeon 08-14-2021 Platelet mean volume (Bld) [Entitic vol] 10.9 fL 6.2-12.0 [facility] Work Phone: Determination of erythrocyte mean corpuscular volume (MCV)on 08-14-2021 MCV (RBC) [Entitic vol] 88.6 fL 80-94 [facility] Work Phone: Hematocrit Auto (Bld) [Volum e fraction]on 08-14-2021 Hematocrit (Bld) [Volume fraction] 37.9 % 40-54 [facility] Work Phone: Laboratory - Chemistry and C hemistry - challengeon 08-14-2021 CO2 [Moles/Vol] 31.0 mmol/L 21.0-32.0 [facility] Work Phone: Urea nitrogen/Creatinine [Mass ratio] 9.1 mg/mg 10-20 [facility] Work Phone: Laboratory - Hematology and Cell countson 08-14-2021 Erythrocyte distribution width (RBC) [Entitic vol] 43.0 fL 35.1-43.9 [facility] Work Phone: Erythrocyte distribution width (RBC) [Ratio] 13.2 % 11.6-14.6 [facility] Work Phone: Immature granulocytes/100 WBC (Bld) 2.400 % 0.0-0.9 [facility] Work Phone: Comment on above: IG% - Immature Granu locytes (promyelocytes, myelocytes and metamyelocytes) > 1% indicates that a LEFT SHIFT is Present. MCH (RBC) [Entitic mass] 28.3 pg 27.0-32.0 [facility] Work Phone: Nucleated RBC/100 WBC (Bld) [Ratio] 0 % 0-5 [facility] Work Phone: [phone] MCHC Auto (RBC) [Mass/Vol]on 08-14-2021 MCHC (RBC) [Mass/Vol] 31.9 g/dL 32-36 [facility] Work Phone: No Panel Informationon 08-14 Estimated Creatinine Clearance Calc 79.66 ml/min [facility] Work Phone: [phone] Estimated GFR (MDRD) Amer 102 mL/min >60 [facility] Work Phone: Comment on above: GFR Calc Estimated GFR (MDRD) Non-Af Amer 84 mL/min >60 [facility] Work Phone: [phone] Comment on above: Non- GFR Calc SARS-CoV-2 & FLU Antigen (Rapid) [facility] Work Phone: Platelets bldon 08-14-2021 Platelets (Bld) [#/Vol] 373 10*3/uL 150-450 [facility] Work Phone: [phone] Serum or plasma calcium david urement (mass/volume)on 08-14-2021 Calcium [Mass/Vol] 8.6 mg/dL 8.5-10.1 [facility] Work Phone: [phone] Serum or plasma creatinine m easurement (mass/volume)on 08-14-2021 Creatinine [Mass/Vol] 0.99 mg/dL 0.70-1.30 [facility] Work Phone: [phone] Comment on above: The validity of the calculated GFR & GFRAA in patients over 70 years has not been determined. Clinical correlation is essential. Serum or plasma urea nitroge n measurement (mass/volume)on 08-14-2021 Urea nitrogen [Mass/Vol] 9 mg/dL 7-18 [facility] Work Phone: Thin prep Papanicolaou smear with manual screeningon 08-14-2021 Thin prep Papanicolaou smear with manual screening 7 5-15 [facility] Work Phone: Absolute lymphocyte counton 08-10-2021 Lymphocytes Auto (Unsp spec) [#/Vol] 0.25 10*3/uL 0.83-4.51 [facility] Work Phone: Basophil percentageon 2021 Basophil percentage Not Reportable [facility] Work Phone: Bilirubin [Mass/Vol] 0.60 mg/dL 0.20-1.00 [facility] Work Phone: Comment on above: For patients on eltr ombopag therapy, use of Dimension Spencer TBIL is not recommended. Chloride [Moles/Vol] 95 mmol/L 98-107 [facility] Work Phone: [phone] Glucose [Mass/Vol] 259 mg/dL 74-106 [facility] Work Phone: Comment on above: Glucose result great er than or equal to 200 mg/dLsuggests DIABETES MELLITUS per A.D.A. criteria. Neutrophils (Bld) [#/Vol] 24.2 10*3/uL 2.0-7.7 [facility] Work Phone: Potassium [Moles/Vol] 4.5 mmol/L 3.5-5.1 [facility] Work Phone: Protein [Mass/Vol] 6.2 g/dL 6.4-8.2 [facility] Work Phone: Sodium [Moles/Vol] 134 mmol/L 136-145 [facility] Work Phone: WBC (Bld) [#/Vol] 25.4 10*3/uL 4.4-11.0 [facility] Work Phone: Blood band neutrophil count as percentage of total leukocyteson 08-10-2021 Band form neutrophils/100 WBC (Bld) 1 % 0-5 [facility] Work Phone: Blood erythrocytes count (nu mber/volume)on 08-10-2021 RBC (Bld) [#/Vol] 4.54 10*6/uL 4.6-6.2 [facility] Work Phone: Blood hemoglobin measurement (mass/volume)on 08-10-2021 Hemoglobin (Bld) [Mass/Vol] 12.8 g/dL 13.0-16.5 [facility] Work Phone: Blood lymphocytes/100 leukoc yteson 08-10-2021 Lymphocytes/100 WBC (Bld) 1 % 19-41 [facility] Work Phone: Blood metamyelocytes/100 dixie kocyteson 08-10-2021 Metamyelocytes/100 WBC (Bld) 3 % 0-1 [facility] Work Phone: Blood monocytes/100 leukocyt eson 08-10-2021 Monocytes/100 WBC (Bld) 4 % 0-10 [facility] Work Phone: Blood platelet adequacy dete ction by light microscopyon 08-10-2021 Platelets LM Ql (Bld) ADEQUATE ADEQ [facility] Work Phone: Blood platelet mean volumeon 08-10-2021 Platelet mean volume (Bld) [Entitic vol] 10.4 fL 6.2-12.0 [facility] Work Phone: Blood promyelocytes/100 leuk ocyteson 08-10-2021 Promyelocytes/100 WBC (Bld) 1 % 0-0 [facility] Work Phone: Blood segmented neutrophils/ 100 leukocyteson 08-10-2021 Segmented neutrophils/100 WBC (Bld) 90 % 47-70 [facility] Work Phone: Determination of erythrocyte mean corpuscular volume (MCV)on 08-10-2021 MCV (RBC) [Entitic vol] 87.7 fL 80-94 [facility] Work Phone: Glucose Glucometer (BldC) [M ass/Vol]on 08-10-2021 Glucose [Mass/Vol] 304 mg/dL 74-106 [facility] Work Phone: Comment on above: MANAGEMENT OF PATIEN T CARE PER NURSING PROTOCOL Hematocrit Auto (Bld) [Volum e fraction]on 08-10-2021 Hematocrit (Bld) [Volume fraction] 39.8 % 40-54 [facility] Work Phone: Laboratory - Chemistry and C hemistry - challengeon 08-10-2021 ALP [Catalytic activity/Vol] 110 U/L 45-117 [facility] Work Phone: ALT [Catalytic activity/Vol] 26 U/L 16-61 [facility] Work Phone: [phone] CO2 [Moles/Vol] 35.0 mmol/L 21.0-32.0 [facility] Work Phone: [phone] Globulin (S) [Mass/Vol] 4.4 g/dL 2.2-4.2 [facility] Work Phone: Urea nitrogen/Creatinine [Mass ratio] 14.0 mg/mg 10-20 [facility] Work Phone: [phone] Laboratory - Hematology and Cell countson 08-10-2021 Erythrocyte distribution width (RBC) [Entitic vol] 43.7 fL 35.1-43.9 [facility] Work Phone: [phone] Erythrocyte distribution width (RBC) [Ratio] 13.6 % 11.6-14.6 [facility] Work Phone: [phone] MCH (RBC) [Entitic mass] 28.2 pg 27.0-32.0 [facility] Work Phone: MCHC Auto (RBC) [Mass/Vol]on 08-10-2021 MCHC (RBC) [Mass/Vol] 32.2 g/dL 32-36 [facility] Work Phone: No Panel Informationon 08-10 Estimated Creatinine Clearance Calc 109.53 ml/min [facility] Work Phone: Estimated GFR (MDRD) Amer 148 mL/min >60 [facility] Work Phone: Comment on above: GFR Calc Estimated GFR (MDRD) Non-Af Amer 123 mL/min >60 [facility] Work Phone: Comment on above: Non- GFR Calc Platelets bldon 08-10-2021 Platelets (Bld) [#/Vol] 362 10*3/uL 150-450 [facility] Work Phone: RBC morphologyon 08-10-2021 RBC morphology finding Nom (Bld) NORM C+C NORMAL NORM C&C [facility] Work Phone: Review by pathologiston 07-19 Pathologist review Socrates (Unsp spec) [Interp] Reviewed [facility] Work Phone: Comment on above: Previous reported re sult: Freya lara Edited by: SIMBA on 08/10/21:1247Neutrophilic leukocytosis with left shift. Clinical correlation necessary.Caleb Escalante M.D. 08/10/21 AMENDED REPORT 08/10/21 1247 PATH REV previously reported as: July marco Serum or plasma albumin david urement (mass/volume)on 08-10-2021 Albumin [Mass/Vol] 1.8 g/dL 3.2-5.0 [facility] Work Phone: Serum or plasma albumin/glob ulin mass ratioon 08-10-2021 Albumin/Globulin [Mass ratio] 0.4 {ratio} 0.9-2.4 [facility] Work Phone: [phone] Serum or plasma calcium david urement (mass/volume)on 08-10-2021 Calcium [Mass/Vol] 8.8 mg/dL 8.5-10.1 [facility] Work Phone: [phone] Serum or plasma creatinine m easurement (mass/volume)on 08-10-2021 Creatinine [Mass/Vol] 0.72 mg/dL 0.70-1.30 [facility] Work Phone: Comment on above: The validity of the calculated GFR & GFRAA in patients over 70 years has not been determined. Clinical correlation is essential. Serum or plasma urea nitroge n measurement (mass/volume)on 08-10-2021 Urea nitrogen [Mass/Vol] 10 mg/dL 7-18 [facility] Work Phone: Thin prep Papanicolaou smear with manual screeningon 08-10-2021 Thin prep Papanicolaou smear with manual screening 21 U/L 15-37 [facility] Work Phone: Thin prep Papanicolaou smear with manual screening 4 5-15 [facility] Work Phone: Total cell counton Cells counted Molgen (Bld/Tiss) [#] 100 MANUAL DIFF [facility] Work Phone: Blood blasts/100 leukocyteso n 08-09-2021 Blasts/100 WBC (Bld) 1 % 0-0 [facility] Work Phone: Laboratory - Hematology and Cell countson 08-09-2021 Myelocytes/100 WBC (Bld) 2 % 0-0 [facility] Work Phone: Vancomycin troughon 08-10-19 Vancomycin trough [Mass/Vol] 12.8 ug/mL 5.0-15.0 [facility] Work Phone: Comment on above: VANCOMYCIN STANDARED DRUG THERAPY TROUGH LEVEL: 5.0 - 15.0 mg/L VANCOMYCIN HIGH INTENSITY THERAPY TROUGH LEVEL: 15.0 - 20.0 mg/L High Intensity therapy recommended for serious lifethreatening infections include:- Uwktinagtq-Lgodxkyxtkai-Qdvscezsr (Ventilator/Healtcare Associated)-Sepsis PLEASE CONTACT PHARMACY SERVICES (#[id number]) FOR INTERPRETATIONOF RESULTS. Blood eosinophils/100 leukoc yteson 08-08-2021 Eosinophils/100 WBC (Bld) 1 % 0-5 [facility] Work Phone: Laboratory - Chemistry and C hemistry - challengeon 08-07-2021 Magnesium [Mass/Vol] 2.1 mg/dL 1.6-2.6 [facility] Work Phone: Laboratory - Microbiology an d Antimicrobial susceptibilityon 08-07-2021 Bacteria identified Cx Nom (Bld) Meth. resistant Staph. aureus [facility] Work Phone: Bacteria identified Cx Nom (Bld) No growth in 5 days. [facility] Work Phone: No Panel Informationon 08-06 Methicillin-Resist S.aureus DNA PCR Negative Negative [facility] Work Phone: Absolute lymphocyte counton 08-05-2021 Lymphocytes Auto (Unsp spec) [#/Vol] 0.73 10*3/uL 0.83-4.51 [facility] Work Phone: Basophil percentageon 2021 Basophils/100 WBC (Bld) 0.3 % 0-1 [facility] Work Phone: Bilirubin [Mass/Vol] 0.70 mg/dL 0.20-1.00 [facility] Work Phone: Comment on above: For patients on eltr ombopag therapy, use of Dimension Spencer TBIL is not recommended. Chloride [Moles/Vol] 104 mmol/L 98-107 [facility] Work Phone: Eosinophils/100 WBC (Bld) 0.1 % 0-5 [facility] Work Phone: Glucose [Mass/Vol] 267 mg/dL 74-106 [facility] Work Phone: Comment on above: Glucose result great er than or equal to 200 mg/dLsuggests DIABETES MELLITUS per A.D.A. criteria. Neutrophils (Bld) [#/Vol] 18.5 10*3/uL 2.0-7.7 [facility] Work Phone: Neutrophils/100 WBC (Bld) 88.4 % 47-70 [facility] Work Phone: Potassium [Moles/Vol] 3.8 mmol/L 3.5-5.1 [facility] Work Phone: Protein [Mass/Vol] 7.6 g/dL 6.4-8.2 [facility] Work Phone: Sodium [Moles/Vol] 135 mmol/L 136-145 [facility] Work Phone: WBC (Bld) [#/Vol] 21.0 10*3/uL 4.4-11.0 [facility] Work Phone: Blood erythrocytes count (nu mber/volume)on 08-05-2021 RBC (Bld) [#/Vol] 4.98 10*6/uL 4.6-6.2 [facility] Work Phone: Blood hemoglobin measurement (mass/volume)on 08-05-2021 Hemoglobin (Bld) [Mass/Vol] 14.1 g/dL 13.0-16.5 [facility] Work Phone: Blood lymphocytes/100 leukoc yteson 08-05-2021 Lymphocytes/100 WBC (Bld) 3.5 % 19-41 [facility] Work Phone: Blood monocytes/100 leukocyt eson 08-05-2021 Monocytes/100 WBC (Bld) 4.9 % 0-10 [facility] Work Phone: Blood platelet mean volumeon 08-05-2021 Platelet mean volume (Bld) [Entitic vol] 11.5 fL 6.2-12.0 [facility] Work Phone: Bronchoalveolar lavage cultu re with Gram stainon 08-05-2021 Respiratory Culture Meth. resistant Stap h. aureus [facility] Work Phone: Determination of erythrocyte mean corpuscular volume (MCV)on 08-05-2021 MCV (RBC) [Entitic vol] 85.5 fL 80-94 [facility] Work Phone: Glucose Glucometer (BldC) [M ass/Vol]on 08-05-2021 Glucose [Mass/Vol] 212 mg/dL 74-106 [facility] Work Phone: Comment on above: MANAGEMENT OF PATIEN T CARE PER NURSING PROTOCOL Gram stain for investigation of transfusion reactionon 08-05-2021 Microscopic observation Gram stain Nom (Unsp spec) [facility] Work Phone: [phone] Hematocrit Auto (Bld) [Volum e fraction]on 08-05-2021 Hematocrit (Bld) [Volume fraction] 42.6 % 40-54 [facility] Work Phone: [phone] Laboratory - Chemistry and C hemistry - challengeon 08-05-2021 ALP [Catalytic activity/Vol] 110 U/L 45-117 [facility] Work Phone: [phone] ALT [Catalytic activity/Vol] 30 U/L 16-61 [facility] Work Phone: [phone] CO2 [Moles/Vol] 20.0 mmol/L 21.0-32.0 [facility] Work Phone: [phone] Globulin (S) [Mass/Vol] 5.2 g/dL 2.2-4.2 [facility] Work Phone: [phone] Urea nitrogen/Creatinine [Mass ratio] 29.0 mg/mg 10-20 [facility] Work Phone: [phone] Laboratory - Hematology and Cell countson 08-05-2021 Erythrocyte distribution width (RBC) [Entitic vol] 41.7 fL 35.1-43.9 [facility] Work Phone: [phone] Erythrocyte distribution width (RBC) [Ratio] 13.3 % 11.6-14.6 [facility] Work Phone: [phone] Immature granulocytes/100 WBC (Bld) 2.800 % 0.0-0.9 [facility] Work Phone: [phone] Comment on above: IG% - Immature Granu locytes (promyelocytes, myelocytes and metamyelocytes) > 1% indicates that a LEFT SHIFT is Present. MCH (RBC) [Entitic mass] 28.3 pg 27.0-32.0 [facility] Work Phone: [phone] Nucleated RBC/100 WBC (Bld) [Ratio] 0 % 0-5 [facility] Work Phone: [phone] MCHC Auto (RBC) [Mass/Vol]on 08-05-2021 MCHC (RBC) [Mass/Vol] 33.1 g/dL 32-36 [facility] Work Phone: No Panel Informationon 08-05 Estimated Creatinine Clearance Calc 84.80 ml/min [facility] Work Phone: Estimated GFR (MDRD) Amer 110 mL/min >60 [facility] Work Phone: Comment on above: GFR Calc Estimated GFR (MDRD) Non-Af Amer 91 mL/min >60 [facility] Work Phone: Comment on above: Non- GFR Calc Platelets bldon 08-05-2021 Platelets (Bld) [#/Vol] 385 10*3/uL 150-450 [facility] Work Phone: Serum or plasma albumin david urement (mass/volume)on 08-05-2021 Albumin [Mass/Vol] 2.4 g/dL 3.2-5.0 [facility] Work Phone: Serum or plasma albumin/glob ulin mass ratioon 08-05-2021 Albumin/Globulin [Mass ratio] 0.5 {ratio} 0.9-2.4 [facility] Work Phone: Serum or plasma calcium david urement (mass/volume)on 08-05-2021 Calcium [Mass/Vol] 9.0 mg/dL 8.5-10.1 [facility] Work Phone: Serum or plasma creatinine m easurement (mass/volume)on 08-05-2021 Creatinine [Mass/Vol] 0.93 mg/dL 0.70-1.30 [facility] Work Phone: Comment on above: The validity of the calculated GFR & GFRAA in patients over 70 years has not been determined. Clinical correlation is essential. Serum or plasma urea nitroge n measurement (mass/volume)on 08-05-2021 Urea nitrogen [Mass/Vol] 27 mg/dL 7-18 [facility] Work Phone: Thin prep Papanicolaou smear with manual screeningon 08-05-2021 Thin prep Papanicolaou smear with manual screening 12 U/L 15-37 [facility] Work Phone: Thin prep Papanicolaou smear with manual screening 11 5-15 [facility] Work Phone: Whole blood hemoglobin A1c/t otal hemoglobin ratio (mass fraction)on 08-05-2021 HbA1c (Bld) [Mass fraction] 9.3 % 3.8-5.6 [facility] Work Phone: Comment on above: Normal < 5.7 % Predi abetic 5.7 - 6.4 % Diabetic >or= 6.5 % Please note range changes. Absolute lymphocyte counton 08-04-2021 Lymphocytes Auto (Unsp spec) [#/Vol] 0.91 10*3/uL 0.83-4.51 [facility] Work Phone: Basophil percentageon 2021 Basophil percentage 0 SEEN /hpf 0-5 [facility] Work Phone: Lactate [Moles/Vol] 1.3 mmol/L 0.4-[facility] Basophils/100 WBC (Bld) 0.4 % 0-1 [facility] Work Phone: Bilirubin [Mass/Vol] 1.60 mg/dL 0.20-1.00 [facility] Work Phone: Comment on above: For patients on eltr ombopag therapy, use of Dimension Spencer TBIL is not recommended. Chloride [Moles/Vol] 94 mmol/L 98-107 [facility] Work Phone: Eosinophils/100 WBC (Bld) 0.1 % 0-5 [facility] Work Phone: Glucose [Mass/Vol] 287 mg/dL 74-106 [facility] Work Phone: Comment on above: Glucose result great er than or equal to 200 mg/dLsuggests DIABETES MELLITUS per A.D.A. criteria. Lymphocytes/100 WBC (Bld) 5.6 % 19-41 [facility] Work Phone: Monocytes/100 WBC (Bld) 6.2 % 0-10 [facility] Work Phone: [phone] Neutrophils (Bld) [#/Vol] 13.8 10*3/uL 2.0-7.7 [facility] Work Phone: [phone] Neutrophils/100 WBC (Bld) 84.9 % 47-70 [facility] Work Phone: [phone] Potassium [Moles/Vol] 3.6 mmol/L 3.5-5.1 [facility]: [phone] Protein [Mass/Vol] 7.8 g/dL 6.4-8.2 [facility] Work Phone: [phone] Sodium [Moles/Vol] 132 mmol/L 136-145 [facility] Work Phone: [phone] WBC (Bld) [#/Vol] 16.2 10*3/uL 4.4-11.0 [facility] Work Phone: [phone] Bilirubin Test strip Ql (U)o n 08-04-2021 Bilirubin Ql (U) Negative Negative [facility] Work Phone: [phone] Blood erythrocytes count (nu mber/volume)on 08-04-2021 RBC (Bld) [#/Vol] 5.16 10*6/uL 4.6-6.2 [facility] Work Phone: [phone] Blood hemoglobin measurement (mass/volume)on 08-04-2021 Hemoglobin (Bld) [Mass/Vol] 14.7 g/dL 13.0-16.5 [facility] Work Phone: [phone] Blood platelet mean volumeon 08-04-2021 Platelet mean volume (Bld) [Entitic vol] 11.6 fL 6.2-12.0 [facility] Work Phone: [phone] Determination of erythrocyte mean corpuscular volume (MCV)on 08-04-2021 MCV (RBC) [Entitic vol] 86.8 fL 80-94 [facility] Work Phone: [phone] Glucose Glucometer (BldC) [M ass/Vol]on 08-04-2021 Glucose [Mass/Vol] 410 mg/dL 74-106 [facility] Work Phone: [phone] Comment on above: MANAGEMENT OF PATIEN T CARE PER NURSING PROTOCOL Hematocrit Auto (Bld) [Volum e fraction]on 08-04-2021 Hematocrit (Bld) [Volume fraction] 44.8 % 40-54 [facility] Work Phone: [phone] Ketones Test strip Ql (U)on 08-04-2021 Ketones Ql (U) 150 mg/dl Negative [facility] Work Phone: [phone] Comment on above: CRITICAL VALUE *H Laboratory - Chemistry and C hemistry - challengeon 08-04-2021 ALP [Catalytic activity/Vol] 116 U/L 45-117 [facility] Work Phone: [phone] ALT [Catalytic activity/Vol] 32 U/L 16-61 [facility] Work Phone: [phone] CO2 [Moles/Vol] 22.0 mmol/L 21.0-32.0 [facility] Work Phone: [phone] Globulin (S) [Mass/Vol] 5.3 g/dL 2.2-4.2 [facility] Work Phone: [phone] Urea nitrogen/Creatinine [Mass ratio] 22.2 mg/mg 10-20 [facility] Work Phone: [phone] Laboratory - Hematology and Cell countson 08-04-2021 Erythrocyte distribution width (RBC) [Entitic vol] 41.0 fL 35.1-43.9 [facility] Work Phone: [phone] Erythrocyte distribution width (RBC) [Ratio] 13.0 % 11.6-14.6 [facility] Work Phone: [phone] Immature granulocytes/100 WBC (Bld) 2.800 % 0.0-0.9 [facility] Work Phone: [phone] Comment on above: IG% - Immature Granu locytes (promyelocytes, myelocytes and metamyelocytes) > 1% indicates that a LEFT SHIFT is Present. MCH (RBC) [Entitic mass] 28.5 pg 27.0-32.0 [facility] Work Phone: MCHC Auto (RBC) [Mass/Vol]on 08-04-2021 MCHC (RBC) [Mass/Vol] 32.8 g/dL 32-36 [facility] Work Phone: Mucus LM Ql (Urine sed)on Mucus Ql (Urine sed) 0 SEEN /hpf [facility] Work Phone: [phone] Nitrite Test strip Ql (U)on 08-04-2021 Nitrite Ql (U) Negative Negative [facility] Work Phone: [phone] No Panel Informationon 08-04 Streptococcus pneumoniae Antigen (M [facility] Work Phone: Respiratory Panel (PCR) [facility] Work Phone: [phone] D-Dimer Quantitative (PE/DVT) 1.72 FEU/ug/m 0.27-0.49 [facility] Work Phone: [phone] Comment on above: D-Dimer ELEVATED (>0 .49): Additional studies and clinicalassessments are indicated to conclude diagnosis of:Deep Vein Thrombosis (DVT) or Pulmonary Embolism (PE)CRITICAL VALUE VERIFIED. CALLED TO Linette Adam08/04/21 121Florencio Rocha.RESULTS READ BACK BY SAME . RESULT(S) PREVIOUSLY REPORTED ON MANUAL REQUISITION DURINGDOWNTIME. Estimated GFR (MDRD) Amer 108 mL/min >60 [facility] Work Phone: Comment on above: GFR Calc Estimated GFR (MDRD) Non-Af Amer 89 mL/min >60 [facility] Work Phone: Comment on above: Non- GFR Calc Troponin I High Sensitivity 7 pg/mL 3.0-78.0 [facility] Work Phone: Comment on above: Please Note: New María t Units and Gender Specific Reference Ranges. For more information see Policy Stat Procedure Spencer High Sensitivity Troponin (TNIH) and attachments. Platelets bldon 08-04-2021 Platelets (Bld) [#/Vol] 341 10*3/uL 150-450 [facility] Work Phone: Protein Test strip Ql (U)on 08-04-2021 Protein Ql (U) 30 mg/dl Negative [facility] Work Phone: [phone] Serum or plasma acetone david urement (mass/volume)on 08-04-2021 Acetone [Mass/Vol] SMALL NEG [facility] Work Phone: [phone] Serum or plasma albumin david urement (mass/volume)on 08-04-2021 Albumin [Mass/Vol] 2.5 g/dL 3.2-5.0 [facility] Work Phone: [phone] Serum or plasma albumin/glob ulin mass ratioon 08-04-2021 Albumin/Globulin [Mass ratio] 0.5 {ratio} 0.9-2.4 [facility] Work Phone: [phone] Serum or plasma calcium david urement (mass/volume)on 08-04-2021 Calcium [Mass/Vol] 9.1 mg/dL 8.5-10.1 [facility] Work Phone: [phone] Serum or plasma creatinine m easurement (mass/volume)on 08-04-2021 Creatinine [Mass/Vol] 0.95 mg/dL 0.70-1.30 [facility] Work Phone: Comment on above: The validity of the calculated GFR & GFRAA in patients over 70 years has not been determined. Clinical correlation is essential. Serum or plasma urea nitroge n measurement (mass/volume)on 08-04-2021 Urea nitrogen [Mass/Vol] 21 mg/dL 10-04 [facility] Work Phone: [phone] Squamous epithelial cells de tection in urine sediment by light microscopyon 08-04-2021 Epithelial cells.squamous LM Ql (Urine sed) 0-5 SEEN /hpf 0-5 [facility] Work Phone: [phone] Thin prep Papanicolaou smear with manual screeningon 08-04-2021 Thin prep Papanicolaou smear with manual screening 18 U/L 15-37 [facility] Work Phone: [phone] Thin prep Papanicolaou smear with manual screening 16 5-15 [facility] Work Phone: Urine blood detectionon 07-18 RBC Ql (U) 25 /ul Negative [facility] Work Phone: [phone] RBC Ql (U) 0 SEEN /hpf 0-5 [facility] Work Phone: Urine clarityon 08-04-2021 Clarity (U) Clear Clear [facility] Work Phone: Urine color determinationon 08-04-2021 Color (U) Straw Yellow [facility] Work Phone: Urine glucose detectionon Glucose Ql (U) 1000 mg/dl Normal [facility] Work Phone: [phone] Urine leukocyte esterase det ection by dipstickon 08-04-2021 Leukocyte esterase Test strip Ql (U) Negative Negative [facility] Work Phone: Urine pHon 08-04-2021 pH (U) 5.0 [pH] 5.0 - 8.0 [facility] Work Phone: Urine sediment bacteria coun t by microscopy (number/high power field)on 08-04-2021 Bacteria LM.HPF (Urine sed) [#/Area] RARE /hpf None Seen [facility] Work Phone: [phone] Urine sediment yeast count b y microscopy (number/high powered field)on 08-04-2021 Yeast LM.HPF (Urine sed) [#/Area] 1 /[HPF] None Seen [facility] Work Phone: Urine specific gravity measu rementon 08-04-2021 Specific gravity (U) [Rel density] 1.020 1.002-1.030 [facility] Work Phone: Urobilinogen Auto test strip Ql (U)on 08-04-2021 Urobilinogen Ql (U) Normal mg/dl Normal [facility] Work Phone: Basophil percentageon 2021 Bilirubin [Mass/Vol] 1.60 mg/dL 0.20-1.00 [facility] Work Phone: Comment on above: For patients on eltr ombopag therapy, use of Dimension Spencer TBIL is not recommended. Chloride [Moles/Vol] 102 mmol/L 98-107 [facility] Work Phone: [phone] Glucose [Mass/Vol] 410 mg/dL 74-106 [facility] Work Phone: [phone] Comment on above: Glucose result great er than or equal to 200 mg/dLsuggests DIABETES MELLITUS per A.D.A. criteria. Potassium [Moles/Vol] 3.9 mmol/L 3.5-5.1 [facility] Work Phone: [phone] Protein [Mass/Vol] 7.2 g/dL 6.4-8.2 [facility] Work Phone: [phone] Sodium [Moles/Vol] 137 mmol/L 136-145 [facility] Work Phone: [phone] WBC (Bld) [#/Vol] 6.4 10*3/uL 4.4-11.0 [facility] Work Phone: [phone] Blood erythrocytes count (nu mber/volume)on 07-29-2021 RBC (Bld) [#/Vol] 5.16 10*6/uL 4.6-6.2 [facility] Work Phone: [phone] Blood hemoglobin measurement (mass/volume)on 07-29-2021 Hemoglobin (Bld) [Mass/Vol] 14.7 g/dL 13.0-16.5 [facility] Work Phone: [phone] Blood platelet mean volumeon 07-29-2021 Platelet mean volume (Bld) [Entitic vol] 11.2 fL 6.2-12.0 [facility] Work Phone: [phone] Determination of erythrocyte mean corpuscular volume (MCV)on 07-29-2021 MCV (RBC) [Entitic vol] 86.8 fL 80-94 [facility] Work Phone: [phone] Hematocrit Auto (Bld) [Volum e fraction]on 07-29-2021 Hematocrit (Bld) [Volume fraction] 44.8 % 40-54 [facility] Work Phone: [phone] Laboratory - Chemistry and C hemistry - challengeon 07-29-2021 ALP [Catalytic activity/Vol] 101 U/L 45-117 [facility] Work Phone: [phone] ALT [Catalytic activity/Vol] 39 U/L 16-61 [facility] Work Phone: [phone] CO2 [Moles/Vol] 27.0 mmol/L 21.0-32.0 [facility] Work Phone: [phone] Globulin (S) [Mass/Vol] 3.8 g/dL 2.2-4.2 [facility] Work Phone: [phone] Urea nitrogen/Creatinine [Mass ratio] 9.4 mg/mg 10-20 [facility] Work Phone: [phone] Laboratory - Hematology and Cell countson 07-29-2021 Erythrocyte distribution width (RBC) [Entitic vol] 40.9 fL 35.1-43.9 [facility] Work Phone: [phone] Erythrocyte distribution width (RBC) [Ratio] 12.9 % 11.6-14.6 [facility] Work Phone: [phone] MCH (RBC) [Entitic mass] 28.5 pg 27.0-32.0 [facility] Work Phone: [phone] MCHC Auto (RBC) [Mass/Vol]on 07-29-2021 MCHC (RBC) [Mass/Vol] 32.8 g/dL 32-36 [facility] Work Phone: [phone] No Panel Informationon 07-29 D-Dimer Quantitative (PE/DVT) < 0.27 FEU/ug/m 0.27-0.49 [facility] Work Phone: [phone] Comment on above: NORMAL D-Dimer level (<0.50) indicates no DVT or PE. Estimated GFR (MDRD) Amer 94 mL/min >60 [facility] Work Phone: [phone] Comment on above: GFR Calc Estimated GFR (MDRD) Non-Af Amer 78 mL/min >60 [facility] Work Phone: Comment on above: Non- GFR Calc Platelets bldon 07-29-2021 Platelets (Bld) [#/Vol] 221 10*3/uL 150-450 [facility] Work Phone: Serum or plasma C reactive p rotein measurement (mass/volume)on 07-29-2021 CRP [Mass/Vol] 3.99 mg/L 0.0-3.0 [facility] Work Phone: Comment on above: C-Reactive Protein ( CRP) provides useful information for thediagnosis, therapy and monitoring of inflammatory processesand associated diseases. For the evaluation of Relative Riskfor Cardiovascular Disease, a High Sensitivity CRP (HSCRP)should be ordered. Serum or plasma albumin david urement (mass/volume)on 07-29-2021 Albumin [Mass/Vol] 3.4 g/dL 3.2-5.0 [facility] Work Phone: Serum or plasma albumin/glob ulin mass ratioon 07-29-2021 Albumin/Globulin [Mass ratio] 0.9 {ratio} 0.9-2.4 [facility] Work Phone: Serum or plasma calcium david urement (mass/volume)on 07-29-2021 Calcium [Mass/Vol] 8.5 mg/dL 8.5-10.1 [facility] Work Phone: Serum or plasma creatinine m easurement (mass/volume)on 07-29-2021 Creatinine [Mass/Vol] 1.06 mg/dL 0.70-1.30 [facility] Work Phone: Comment on above: The validity of the calculated GFR & GFRAA in patients over 70 years has not been determined. Clinical correlation is essential. Serum or plasma urea nitroge n measurement (mass/volume)on 07-29-2021 Urea nitrogen [Mass/Vol] 10 mg/dL 7-18 [facility] Work Phone: Thin prep Papanicolaou smear with manual screeningon 07-29-2021 Thin prep Papanicolaou smear with manual screening 27 U/L 15-37 [facility] Work Phone: Thin prep Papanicolaou smear with manual screening 8 5-15 [facility] Work Phone: Basophil percentageon 2021 Bilirubin [Mass/Vol] 1.50 mg/dL 0.20-1.00 [facility] Work Phone: Comment on above: For patients on eltr ombopag therapy, use of Dimension Spencer TBIL is not recommended. Chloride [Moles/Vol] 104 mmol/L 98-107 [facility] Work Phone: Cholesterol [Mass/Vol] 207 mg/dL <200 [facility] Work Phone: Comment on above: <200 mg/dL Desirable 200-240 mg/dL Borderline >240 mg/dL High Risk Glucose [Mass/Vol] 214 mg/dL 74-106 [facility] Work Phone: Comment on above: Glucose result great er than or equal to 200 mg/dLsuggests DIABETES MELLITUS per A.D.A. criteria. Potassium [Moles/Vol] 4.2 mmol/L 3.5-5.1 [facility] Work Phone: Protein [Mass/Vol] 6.9 g/dL 6.4-8.2 [facility] Work Phone: Sodium [Moles/Vol] 137 mmol/L 136-145 [facility] Work Phone: [phone] Triglyceride [Mass/Vol] 105 mg/dL <199 [facility] Work Phone: Comment on above: The drugs N-Acetylcy steine and Metamizole may falsely depress this assay.Serum Triglycerides Reference Interval Normal <150 mg/dL Borderline high 150 - 199 mg/dL High 200 - 499 mg/dL Very High > or = 500 mg/dL WBC (Bld) [#/Vol] 7.3 10*3/uL 4.4-11.0 [facility] Work Phone: Blood erythrocytes count (nu mber/volume)on 06-26-2021 RBC (Bld) [#/Vol] 5.11 10*6/uL 4.6-6.2 [facility] Work Phone: Blood hemoglobin measurement (mass/volume)on 06-26-2021 Hemoglobin (Bld) [Mass/Vol] 14.7 g/dL 13.0-16.5 [facility] Work Phone: [phone] Blood platelet mean volumeon 06-26-2021 Platelet mean volume (Bld) [Entitic vol] 10.9 fL 6.2-12.0 [facility] Work Phone: Determination of erythrocyte mean corpuscular volume (MCV)on 06-26-2021 MCV (RBC) [Entitic vol] 86.1 fL 80-94 [facility] Work Phone: [phone] Hematocrit Auto (Bld) [Volum e fraction]on 06-26-2021 Hematocrit (Bld) [Volume fraction] 44.0 % 40-54 [facility] Work Phone: Iron measurement (mass/mass) on 06-26-2021 Iron (Unsp spec) [Mass/Mass] 67 ug/dL 65-175 [facility] Work Phone: Laboratory - Chemistry and C hemistry - challengeon 06-26-2021 ALP [Catalytic activity/Vol] 89 U/L 45-117 [facility] Work Phone: ALT [Catalytic activity/Vol] 28 U/L 16-61 [facility] Work Phone: [phone] CO2 [Moles/Vol] 29.0 mmol/L 21.0-32.0 [facility] Work Phone: [phone] Globulin (S) [Mass/Vol] 3.4 g/dL 2.2-4.2 [facility] Work Phone: [phone] Urea nitrogen/Creatinine [Mass ratio] 18.8 mg/mg 10-20 [facility] Work Phone: Laboratory - Hematology and Cell countson 06-26-2021 Erythrocyte distribution width (RBC) [Entitic vol] 41.1 fL 35.1-43.9 [facility] Work Phone: [phone] Erythrocyte distribution width (RBC) [Ratio] 13.2 % 11.6-14.6 [facility] Work Phone: [phone] MCH (RBC) [Entitic mass] 28.8 pg 27.0-32.0 [facility] Work Phone: MCHC Auto (RBC) [Mass/Vol]on 06-26-2021 MCHC (RBC) [Mass/Vol] 33.4 g/dL 32-36 [facility] Work Phone: No Panel Informationon 06-26 Estimated GFR (MDRD) Amer 114 mL/min >60 [facility] Work Phone: [phone] Comment on above: GFR Calc Estimated GFR (MDRD) Non-Af Amer 94 mL/min >60 [facility] Work Phone: Comment on above: Non- GFR Calc Prostate Specific Antigen Screen 1.04 ng/mL 0.00-4.00 [facility] Work Phone: [phone] Comment on above: This test was perfor med using the TPSA assay method for [employer] chemistry system. Values obtained with differentassay methods cannot be used interchangably.When changing PSA assays in the course of monitoring apatient, additional sequential testing should be carriedout to confirm baseline values. Total Iron Binding Capacity 273 ug/dL 250-450 [facility] Work Phone: [phone] Vitamin D 25-Hydroxy 25.0 ng/mL [facility] Work Phone: [phone] Comment on above: Vitamin D 25(OH) Sta tus Range Deficiency <20 ng/mL (50nmol/L) Insufficiency 20 - 30 ng/mL (50 - 75 nmol/L) Sufficiency 30 - 100 ng/mL (75 - 250 nmol/L) Toxicity >100 ng/mL (>250 nmol/L) Platelets bldon 06-26-2021 Platelets (Bld) [#/Vol] 250 10*3/uL 150-450 [facility] Work Phone: [phone] Serum or plasma albumin david urement (mass/volume)on 06-26-2021 Albumin [Mass/Vol] 3.5 g/dL 3.2-5.0 [facility] Work Phone: Serum or plasma albumin/glob ulin mass ratioon 06-26-2021 Albumin/Globulin [Mass ratio] 1.0 {ratio} 0.9-2.4 [facility] Work Phone: Serum or plasma calcium david urement (mass/volume)on 06-26-2021 Calcium [Mass/Vol] 8.0 mg/dL 8.5-10.1 [facility] Work Phone: Serum or plasma cholesterol in HDL measurement (mass/volume)on 06-26-2021 Cholesterol in HDL [Mass/Vol] 42 mg/dL >40 [facility] Work Phone: Comment on above: The drugs N-Acetylcy steine and Metamizole may falsely depress this assay. Reference Range HDL <40 mg/dL Low HDL Cholesterol HDL >or= 60 mg/dL High HDL Cholesterol Serum or plasma cholesterol in VLDL measurement (mass/volume)on 06-26-2021 Cholesterol in VLDL [Mass/Vol] 21 mg/dL 5-40 [facility] Work Phone: Serum or plasma creatinine m easurement (mass/volume)on 06-26-2021 Creatinine [Mass/Vol] 0.90 mg/dL 0.70-1.30 [facility] Work Phone: Comment on above: The validity of the calculated GFR & GFRAA in patients over 70 years has not been determined. Clinical correlation is essential. Serum or plasma low density lipoprotein (LDL) cholesterol measurement (mass/volume)on 06-26-2021 Cholesterol in LDL [Mass/Vol] 144 mg/dL 0-130 [facility] Work Phone: Serum or plasma urea nitroge n measurement (mass/volume)on 06-26-2021 Urea nitrogen [Mass/Vol] 17 mg/dL 7-18 [facility] Work Phone: Thin prep Papanicolaou smear with manual screeningon 04-09-2022 Thin prep Papanicolaou smear with manual screening 14 U/L 15-37 [facility] Work Phone: Thin prep Papanicolaou smear with manual screening 4 5-15 [facility] Work Phone: Whole blood hemoglobin A1c/t otal hemoglobin ratio (mass fraction)on 06-26-2021 HbA1c (Bld) [Mass fraction] 8.6 % 3.8-5.6 [facility] Work Phone: Comment on above: Normal < 5.7 % Predi abetic 5.7 - 6.4 % Diabetic >or= 6.5 % Please note range changes. Bronchoalveolar lavage cultu re with Gram stain Respiratory Culture Meth. resistant Stap h. aureus [facility] Work Phone: Gram stain for investigation of transfusion reaction Microscopic observation Gram stain Nom (Unsp spec) [facility] Work Phone: Laboratory - Microbiology an d Antimicrobial susceptibility Bacteria identified Cx Nom (Bld) No growth in 5 days. [facility] Work Phone: No Panel Information SARS-CoV-2 & FLU Antigen (Rapid) [facility] Work Phone: Streptococcus pneumoniae Antigen (M [facility] Work Phone: Vital Signs Date Time Vital Sign Value Performing Clinician Facility 08-14-2024 17:26-0400 Body height 167.64 cm David Cummins [employer] Work Phone: [facility] 08-14-2024 17:26-0400 Body mass index (BMI) [Ratio] 55.3 kg/m2 David Cummins [employer] Work Phone: [facility] 08-14-2024 17:26-0400 Body temperature 98.4 [degF] David Cummins [employer] Work Phone: [facility] 08-14-2024 17:26-0400 Body weight 155.32 kg David Cummins [employer] Work Phone: [facility] 08-14-2024 17:26-0400 Diastolic blood pressure 85 mm[Hg] David Cummins [employer] Work Phone: [facility] 08-14-2024 17:26-0400 Heart rate 82 /min David Cummins [employer] Work Phone: [facility] 08-14-2024 17:26-0400 Respiratory rate 16 /min David Cummins [employer] Work Phone: [facility] 08-14-2024 17:26-0400 SaO2% (BldA) [Mass fraction] 98 % David Cummins [employer] Work Phone: [facility] 08-14-2024 17:26-0400 Systolic blood pressure 168 mm[Hg] David Cummins [employer] Work Phone: [facility] 12-08-2022 07:20-0400 Blood Pressure Cuff Size PHOEBE BROWN MD [facility] 12-08-2022 07:20-0400 Blood Pressure Location PHOEBE BROWN MD [facility] 12-08-2022 07:20-0400 Blood Pressure Method PHOEBE BROWN MD [facility] 12-08-2022 07:20-0400 Body temperature 98.06 [degF] PHOEBE BRONW MD [facility] 12-08-2022 07:20-0400 Diastolic Blood Pressure Non-Invasive 102 1 PHOEBE BROWN MD [facility] 12-08-2022 07:20-0400 Heart rate 80 /min PHOEBE BROWN MD [facility] 12-08-2022 07:20-0400 Respiratory rate 20 /min PHOEBE BROWN MD [facility] 12-08-2022 07:20-0400 Systolic Blood Pressure Non-Invasive 186 1 PHOEBE BROWN MD [address] [place] [address] 12-08-2022 06:15-0400 Respiratory rate 18 /min PHOEBE BROWN MD [address] [place] [address] 12-07-2022 22:20-0400 Body temperature 98.6 [degF] PHOEBE BROWN MD [address] [place] [address] 12-07-2022 22:20-0400 Diastolic Blood Pressure Non-Invasive 86 1 PHOEBE BROWN MD [address] [place] [address] 12-07-2022 22:20-0400 Heart rate 75 /min PHOEBE BROWN MD [address] 12-07-2022 22:20-0400 Respiratory rate 18 /min PHOEBE BROWN MD [address] 12-07-2022 22:20-0400 Systolic Blood Pressure Non-Invasive 175 1 PHOEBE BROWN MD [address] [place] [address] 12-07-2022 14:47-0400 Blood Pressure Location PHOEBE BROWN MD [address] [place] [address] 12-07-2022 14:47-0400 Blood Pressure Method PHOEBE BROWN MD [address] [place] [address] 12-07-2022 14:47-0400 Body temperature 98.24 [degF] PHOEBE BROWN MD [address] [place] [address] 12-07-2022 14:47-0400 Diastolic Blood Pressure Non-Invasive 84 1 PHOEBE BROWN MD [address] [place] [address] 12-07-2022 14:47-0400 Heart rate 76 /min PHOEBE BROWN MD [address] [place] [address] 12-07-2022 14:47-0400 Mean blood pressure 103 mm[Hg] PHOEBE BROWN MD [address] [place] [address] 12-07-2022 14:47-0400 Reason For Taking VItal Signs PHOEBE BROWN MD [address] [place] [address] 12-07-2022 14:47-0400 Systolic Blood Pressure Non-Invasive 153 1 PHOEBE BROWN MD [address] [place] [address] 12-07-2022 09:41-0400 Blood Pressure Location PHOEBE BROWN MD [address] [place] [address] 12-07-2022 09:41-0400 Blood Pressure Method PHOEBE BROWN MD [address] [place] [address] 12-07-2022 08:03-0400 Mean blood pressure 107 mm[Hg] PHOEBE BROWN MD [address] 12-07-2022 08:03-0400 Reason For Taking VItal Signs PHOEBE BROWN MD [address] 12-07-2022 01:17-0400 Heart rate 92 /min PHOEBE BROWN MD [address] [place] [address] 12-06-2022 22:21-0400 Reason For Taking VItal Signs PHOEBE BROWN MD [address] [place] [address] 12-06-2022 11:08-0400 Blood Pressure Cuff Size PHOEBE BROWN MD [address] 12-06-2022 07:12-0400 Blood Pressure Cuff Size PHOEBE BROWN MD [address] [place] [address] 12-06-2022 07:12-0400 Body temperature 98.6 [degF] PHOEBE BROWN MD [address] [place] [address] 12-06-2022 03:03-0400 Heart rate 97 /min PHOEBE BROWN MD [address] [place] [address] 12-05-2022 22:50-0400 Heart rate 114 /min PHOEBE BROWN MD [address] [place] [address] 12-05-2022 20:02-0400 Heart rate 98 /min PHOEBE BROWN MD [facility] 12-05-2022 02:28-0400 Heart rate 96 /min PHOEBE BROWN MD [facility] 12-04-2022 22:25-0400 Heart rate 100 /min PHOEBE BROWN MD [facility] 12-04-2022 17:22-0400 Body height 167.6 cm PHOEBE BROWN MD [facility] 12-04-2022 17:22-0400 Body weight 152.6 kg PHOEBE BROWN MD [facility] 12-04-2022 17:22-0400 Body weight 54.33 kg/m2 PHOEBE BROWN MD [facility] 12-04-2022 16:00-0400 Body temperature 101.48 [degF] [facility] [employer] [facility] Comment on above: Result Comment: dr. peres notified of temp. order for tylenol received. 12-04-2022 16:00-0400 Diastolic Blood Pressure Non-Invasive 97 1 BOOGIE PERES [employer] [facility] 12-04-2022 16:00-0400 Heart rate 115 /min [facility] DO [facility] 12-04-2022 16:00-0400 Respiratory rate 25 /min [facility] DO [facility] 12-04-2022 16:00-0400 Systolic Blood Pressure Non-Invasive 179 1 [facility] DO [facility] 12-04-2022 14:29-0400 Diastolic Blood Pressure Non-Invasive 71 1 [facility] DO [facility] 12-04-2022 14:29-0400 Heart rate 109 /min BOOGIE REICHFIELD DO [facility] 12-04-2022 14:29-0400 Respiratory rate 20 /min BOOGIE REICHFIELD DO [facility] 12-04-2022 14:29-0400 Systolic Blood Pressure Non-Invasive 169 1 BOOGIE REICHFIELD DO [facility] 12-04-2022 12:11-0400 Diastolic Blood Pressure Non-Invasive 80 1 BOOGIE REICHFIELD DO [facility] 12-04-2022 12:11-0400 Heart rate 104 /min BOOGIE REICHFIELD DO [facility] 12-04-2022 12:11-0400 Respiratory rate 22 /min BOOGIE REICHFIELD DO [facility] 12-04-2022 12:11-0400 Systolic Blood Pressure Non-Invasive 173 1 BOOGIE REICHFIELD DO [facility] 12-04-2022 10:26-0400 Body temperature 98.78 [degF] BOOGIE REICHFIELD DO [facility] 12-04-2022 10:26-0400 Body weight 162.2 kg BOOGIE REICHFIELD DO [facility] 07-30-2022 13:47-0400 Diastolic blood pressure 70 mm[Hg] [employer] David Cummins [employer] Work Phone: [facility] 07-30-2022 13:47-0400 Heart rate 94 /min [employer] David Cummins [employer] Work Phone: [facility] 07-30-2022 13:47-0400 Respiratory rate 16 /min [employer] David Cummins [employer] Work Phone: [facility] 07-30-2022 13:47-0400 SaO2% (BldA) [Mass fraction] 99 % [employer]UMENTS ASSEMBLER-C David Shahpkins [employer]ICAL INSTRUMENTS ASSEMBLER Work Phone: [facility] 07-30-2022 13:47-0400 Systolic blood pressure 120 mm[Hg] [employer]UMENTS ASSEMBLER-C David Cummins [employer]ICAL INSTRUMENTS ASSEMBLER Work Phone: [facility] 07-30-2022 12:37-0400 Body mass index (BMI) [Ratio] 63.7 kg/m2 [employer] INSTRUMENTS ASSEMBLER-C David Ascension MUSICAL INSTRUMENTS ASSEMBLER Work Phone: [facility] 07-30-2022 12:37-0400 Body weight 179.9 kg [employer]UMENTS ASSEMBLER-C David Placido [employer]ICAL INSTRUMENTS ASSEMBLER Work Phone: [facility] 07-30-2022 11:10-0400 Body height 167.64 cm [employer]ICAL [employer]STRUMENTS ASSEMBLER-C David Cummins MUSICAL INSTRUMENTS ASSEMBLER Work Phone: [facility] 07-30-2022 11:10-0400 Body temperature 97.8 [degF] [employer] INSTRUMENTS ASSEMBLER-C David Ascension MUSICAL INSTRUMENTS ASSEMBLER Work Phone: [facility] 07-20-2022 13:38-0400 Body weight 176.9 kg [employer] INSTRUMENTS ASSEMBLER-C David Shahpkins MUSICAL INSTRUMENTS ASSEMBLER Work Phone: [facility] 07-20-2022 13:38-0400 Diastolic blood pressure 72 mm[Hg] [employer] INSTRUMENTS ASSEMBLER-C David Cummins MUSICAL INSTRUMENTS ASSEMBLER Work Phone: [facility] 07-20-2022 13:38-0400 Heart rate 74 /min [employer]STRUMENTS ASSEMBLER-C David Cummins MUSICAL INSTRUMENTS ASSEMBLER Work Phone: [facility] 07-20-2022 13:38-0400 Respiratory rate 18 /min [employer] INSTRUMENTS ASSEMBLER-C David Ascension MUSICAL INSTRUMENTS ASSEMBLER Work Phone: [facility] 07-20-2022 13:38-0400 SaO2% (BldA) [Mass fraction] 96 % [employer]STRUMENTS ASSEMBLER-C David Cummins MUSICAL INSTRUMENTS ASSEMBLER Work Phone: [facility] 07-20-2022 13:38-0400 Systolic blood pressure 130 mm[Hg] [employer]UMENTS ASSEMBLER-C David Shahpkins MUSICAL INSTRUMENTS ASSEMBLER Work Phone: [facility] 07-12-2022 16:20-0400 Body temperature 97.6 [degF] [employer]STRUMENTS ASSEMBLER-C David Shahpkins MUSICAL INSTRUMENTS ASSEMBLER Work Phone: [facility] 07-12-2022 16:20-0400 Diastolic blood pressure 76 mm[Hg] [employer] INSTRUMENTS ASSEMBLER-C David Shahpkins MUSICAL INSTRUMENTS ASSEMBLER Work Phone: [facility] 07-12-2022 16:20-0400 Heart rate 93 /min [employer]UMENTS ASSEMBLER-C David Shahpkins MUSICAL INSTRUMENTS ASSEMBLER Work Phone: [facility] 07-12-2022 16:20-0400 Respiratory rate 15 /min [employer] INSTRUMENTS ASSEMBLER-C David Shahpkins MUSICAL INSTRUMENTS ASSEMBLER Work Phone: [facility] 07-12-2022 16:20-0400 SaO2% (BldA) [Mass fraction] 96 % [employer] INSTRUMENTS ASSEMBLER-C David Shahpkins MUSICAL INSTRUMENTS ASSEMBLER Work Phone: [facility] 07-12-2022 16:20-0400 Systolic blood pressure 156 mm[Hg] [employer]ICAL INSTRUMENTS ASSEMBLER-C David Shahpkins MUSICAL INSTRUMENTS ASSEMBLER Work Phone: [facility] 07-12-2022 16:19-0400 Body mass index (BMI) [Ratio] 57.2 kg/m2 [employer] INSTRUMENTS ASSEMBLER-C David Shahpkins MUSICAL INSTRUMENTS ASSEMBLER Work Phone: [facility] 07-12-2022 11:50-0400 Body height 167.64 cm [employer]ICAL INSTRUMENTS ASSEMBLER-C David Shahpkins MUSICAL INSTRUMENTS ASSEMBLER Work Phone: [facility] 07-12-2022 11:50-0400 Body weight 160.8 kg [employer]ICAL [employer]STRUMENTS ASSEMBLER-C David Shahpkins MUSICAL INSTRUMENTS ASSEMBLER Work Phone: [facility] 07-12-2022 05:28-0400 Inhaled oxygen concentration 21 % [employer]ICAL INSTRUMENTS ASSEMBLER-C David Placido MUSICAL INSTRUMENTS ASSEMBLER Work Phone: [facility] 04-24-2023 20:07-0400 Body temperature 98.1 [degF] [employer] INSTRUMENTS ASSEMBLER-C David Shahpkins MUSICAL INSTRUMENTS ASSEMBLER Work Phone: [facility] 07-11-2022 20:07-0400 Diastolic blood pressure 89 mm[Hg] [employer] INSTRUMENTS ASSEMBLER-C David Shahpkins MUSICAL INSTRUMENTS ASSEMBLER Work Phone: [facility] 07-11-2022 20:07-0400 Heart rate 84 /min [employer] INSTRUMENTS ASSEMBLER-C David Shahpkins MUSICAL INSTRUMENTS ASSEMBLER Work Phone: [facility] 07-11-2022 20:07-0400 Respiratory rate 18 /min [employer] INSTRUMENTS ASSEMBLER-C David Shahpkins MUSICAL INSTRUMENTS ASSEMBLER Work Phone: [facility] 07-11-2022 20:07-0400 SaO2% (BldA) [Mass fraction] 94 % [employer]ICAL INSTRUMENTS ASSEMBLER-C David Shahpkins MUSICAL INSTRUMENTS ASSEMBLER Work Phone: [facility] 07-11-2022 20:07-0400 Systolic blood pressure 163 mm[Hg] [employer]ICAL INSTRUMENTS ASSEMBLER-C David Shahpkins MUSICAL INSTRUMENTS ASSEMBLER Work Phone: [facility] 07-11-2022 18:48-0400 Body mass index (BMI) [Ratio] 63.4 kg/m2 [employer] INSTRUMENTS ASSEMBLER-C David Shahpkins MUSICAL INSTRUMENTS ASSEMBLER Work Phone: [facility] 07-11-2022 18:48-0400 Body weight 178.3 kg [employer] INSTRUMENTS ASSEMBLER-C David Shahpkins MUSICAL INSTRUMENTS ASSEMBLER Work Phone: [facility] 07-11-2022 14:45-0400 Body height 167.64 cm [employer]ICAL INSTRUMENTS ASSEMBLER-C David Shahpkins MUSICAL INSTRUMENTS ASSEMBLER Work Phone: [facility] 09-13-2021 13:19-0400 Body height 167.64 cm [employer]ICAL INSTRUMENTS ASSEMBLER-C David Ascension MUSICAL INSTRUMENTS ASSEMBLER Work Phone: [facility] Work Phone: 09-13-2021 13:19-0400 Body mass index (BMI) [Ratio] 59 kg/m2 [employer]STRUMENTS ASSEMBLER-C David Placido MUSICAL INSTRUMENTS ASSEMBLER Work Phone: [facility] Work Phone: 09-13-2021 13:19-0400 Body temperature 97.5 [degF] [employer] INSTRUMENTS ASSEMBLER-C David Cummins MUSICAL INSTRUMENTS ASSEMBLER Work Phone: [facility] Work Phone: 09-13-2021 13:19-0400 Body weight 165.78 kg [employer]STRUMENTS ASSEMBLER-C David Cummins MUSICAL INSTRUMENTS ASSEMBLER Work Phone: [facility] Work Phone: 09-13-2021 13:19-0400 Diastolic blood pressure 77 mm[Hg] [employer] INSTRUMENTS ASSEMBLER-C David Cummins MUSICAL INSTRUMENTS ASSEMBLER Work Phone: [facility] Work Phone: 09-13-2021 13:19-0400 Heart rate 101 /min [employer]STRUMENTS ASSEMBLER-C David Cummins MUSICAL INSTRUMENTS ASSEMBLER Work Phone: [facility] Work Phone: 09-13-2021 13:19-0400 Respiratory rate 16 /min [employer] INSTRUMENTS ASSEMBLER-C David Cummins MUSICAL INSTRUMENTS ASSEMBLER Work Phone: [facility] Work Phone: 09-13-2021 13:19-0400 SaO2% (BldA) [Mass fraction] 94 % [employer]UMENTS ASSEMBLER-C David Cummins MUSICAL INSTRUMENTS ASSEMBLER Work Phone: [facility] Work Phone: 09-13-2021 13:19-0400 Systolic blood pressure 125 mm[Hg] [employer] INSTRUMENTS ASSEMBLER-C David Cummins MUSICAL INSTRUMENTS ASSEMBLER Work Phone: [facility] Work Phone: 08-14-2021 14:44-0400 Respiratory rate 18 /min [employer] INSTRUMENTS ASSEMBLER-C David Cummins MUSICAL INSTRUMENTS ASSEMBLER Work Phone: [facility] Work Phone: 08-14-2021 14:44-0400 SaO2% (BldA) [Mass fraction] 96 % [employer]STRUMENTS ASSEMBLER-C David Cummins MUSICAL INSTRUMENTS ASSEMBLER Work Phone: [facility] Work Phone: 08-14-2021 13:46-0400 Heart rate 108 /min [employer] INSTRUMENTS ASSEMBLER-C David Shahpkins MUSICAL INSTRUMENTS ASSEMBLER Work Phone: [facility] Work Phone: 08-14-2021 12:36-0400 Body height 167.64 cm [employer]ICAL INSTRUMENTS ASSEMBLER-C David Shahpkins MUSICAL INSTRUMENTS ASSEMBLER Work Phone: [facility] Work Phone: 08-14-2021 12:36-0400 Body mass index (BMI) [Ratio] 58.1 kg/m2 [employer] INSTRUMENTS ASSEMBLER-C David Shahpkins MUSICAL INSTRUMENTS ASSEMBLER Work Phone: [facility] Work Phone: 08-14-2021 12:36-0400 Body temperature 96.8 [degF] MUSICAL INSTRUMENTS ASSEMBLER-C David Placido MUSICAL INSTRUMENTS ASSEMBLER Work Phone: [facility] Work Phone: 08-14-2021 12:36-0400 Body weight 163.29 kg MUSICAL INSTRUMENTS ASSEMBLER-C David Shahpkins MUSICAL INSTRUMENTS ASSEMBLER Work Phone: [facility] Work Phone: 08-14-2021 12:36-0400 Diastolic blood pressure 93 mm[Hg] MUSICAL INSTRUMENTS ASSEMBLER-C David Placido MUSICAL INSTRUMENTS ASSEMBLER Work Phone: [facility] Work Phone: 08-14-2021 12:36-0400 Systolic blood pressure 132 mm[Hg] MUSICAL INSTRUMENTS ASSEMBLER-C David Placido MUSICAL INSTRUMENTS ASSEMBLER Work Phone: [facility] Work Phone: 08-10-2021 13:53-0400 Body temperature 98.5 [degF] MUSICAL INSTRUMENTS ASSEMBLER-C David Cummins MUSICAL INSTRUMENTS ASSEMBLER Work Phone: [facility] Work Phone: 08-10-2021 13:53-0400 Diastolic blood pressure 65 mm[Hg] MUSICAL INSTRUMENTS ASSEMBLER-C David Ascension MUSICAL INSTRUMENTS ASSEMBLER Work Phone: [facility] Work Phone: 08-10-2021 13:53-0400 Heart rate 113 /min [employer] INSTRUMENTS ASSEMBLER-C David Cummins MUSICAL INSTRUMENTS ASSEMBLER Work Phone: [facility] Work Phone: 08-10-2021 13:53-0400 Respiratory rate 18 /min MUSICAL INSTRUMENTS ASSEMBLER-C David Cummins MUSICAL INSTRUMENTS ASSEMBLER Work Phone: [facility] Work Phone: 08-10-2021 13:53-0400 SaO2% (BldA) [Mass fraction] 92 % MUSICAL INSTRUMENTS ASSEMBLER-C David Cummins MUSICAL INSTRUMENTS ASSEMBLER Work Phone: [facility] Work Phone: 08-10-2021 13:53-0400 Systolic blood pressure 135 mm[Hg] MUSICAL INSTRUMENTS ASSEMBLER-C David Cummins MUSICAL INSTRUMENTS ASSEMBLER Work Phone: [facility] Work Phone: 08-10-2021 11:07-0400 Inhaled oxygen flow rate 2 L/min [employer] INSTRUMENTS ASSEMBLER-C David Cummins MUSICAL INSTRUMENTS ASSEMBLER Work Phone: [facility] Work Phone: 08-10-2021 06:00-0400 Body weight 171.5 kg [employer] INSTRUMENTS ASSEMBLER-C David Cummins MUSICAL INSTRUMENTS ASSEMBLER Work Phone: [facility] Work Phone: 08-07-2021 23:34-0400 Inhaled oxygen concentration 21 % [employer] INSTRUMENTS ASSEMBLER-C David Cummins MUSICAL INSTRUMENTS ASSEMBLER Work Phone: [facility] Work Phone: 08-05-2021 11:04-0400 Body height 167.64 cm MUSICAL INSTRUMENTS ASSEMBLER-C David Cummins MUSICAL INSTRUMENTS ASSEMBLER Work Phone: [facility] Work Phone: 08-05-2021 04:31-0400 Body weight 162.3 kg [facility] Work Phone: 08-05-2021 03:50-0400 Body temperature 98.3 [degF] [facility] Work Phone: 08-05-2021 03:50-0400 Diastolic blood pressure 80 mm[Hg] [facility] Work Phone: 08-05-2021 03:50-0400 Heart rate 102 /min [facility] Work Phone: 08-05-2021 03:50-0400 Respiratory rate 22 /min [facility] Work Phone: 08-05-2021 03:50-0400 SaO2% (BldA) [Mass fraction] 93 % [facility] Work Phone: 08-05-2021 03:50-0400 Systolic blood pressure 161 mm[Hg] [facility] Work Phone: 08-04-2021 17:06-0400 Body height 167.64 cm [facility] Work Phone: 08-04-2021 17:06-0400 Body mass index (BMI) [Ratio] 57.9 kg/m2 [facility] Work Phone: 08-04-2021 16:47-0400 Body temperature 99.1 [degF] [facility] Work Phone: 08-04-2021 16:47-0400 Diastolic blood pressure 100 mm[Hg] [facility] Work Phone: 08-04-2021 16:47-0400 Heart rate 99 /min [facility] Work Phone: 08-04-2021 16:47-0400 Respiratory rate 21 /min [facility] Work Phone: 08-04-2021 16:47-0400 SaO2% (BldA) [Mass fraction] 99 % [facility] Work Phone: 08-04-2021 16:47-0400 Systolic blood pressure 139 mm[Hg] [facility] Work Phone: 08-04-2021 10:03-0400 Body height 167.64 cm [facility] Work Phone: 08-04-2021 10:-0400 Body mass index (BMI) [Ratio] 58.1 kg/m2 [facility] Work Phone: 08-04-2021 [id number] Body weight 163.29 kg [facility] Work Phone: Encounters Encounter Date Encounter Type Care Provider Facility Start: 11-02-2024 ambulatory BOOGIE KAYLEY Facilit y:[facility] Start: 08-16-2024 End: 08-16-2024 Patient encounter procedure BOOGIE KAYLEY [employer]EMPLOYMENT TRAINING SPECIALIST [facility] Start: 08-16-2024 End: 08-16-2024 ambulatory BOOGIE KAYLEY [employer]-EMPLOYMENT TRAINING SPECIALIST Facility:[facility] Start: 08-14-2024 End: 08-14-2024 Emergency department patient visit David Cummins [employer] INSTRUMENTS ASSEMBLER-C Work Phone: -Emergency Department Work Phone: Start: 04-29-2024 End: 04-29-2024 Patient encounter procedure BOOGIE ZALDIVAR MUSICAL INSTRUMENTS ASSEMBLER-C -Laboratory Work Phone: Start: 04-29-2024 End: 04-29-2024 ambulatory BOOIGE KAYLEY Facility:[facility] Start: 02-19-2024 End: 02-23-2024 ambulatory BOOGIE KAYLEY [employer]-EMPLOYMENT TRAINING SPECIALIST Facility:[facility] Start: 02-19-2024 End: 02-23-2024 Outreach Lab MORTEZA MOREL [employer]ESSER [employer]-EMPLOYMENT TRAINING SPECIALIST [facility] Start: 10-18-2023 ambulatory BOOGIE ETLE R [employer]ER [employer]-EMPLOYMENT TRAINING SPECIALIST Facility:[facility] Start: 09-26-2023 End: 09-26-2023 ambulatory BOOGIE KAYLEY [employer]-EMPLOYMENT TRAINING SPECIALIST Facility:[facility] Start: 09-26-2023 End: 09-26-[address] CUATE SINGLETON DO [facility] Start: 06-15-2023 End: 06-15-2023 ambulatory [facility] Work Phone: Start: 06-15-2023 End: 06-15-2023 Patient encounter procedure [facility]-Laboratory Work Phone: Start: 12-04-2022 End: 12-08-2022 Evaluation and management of inpatient PHOEBE KEVIN SPRAGUE [facility] Start: 12-04-2022 End: 12-04-2022 Emergency department patient visit BOOGIE PERES [facility] Start: 07-30-2022 End: 07-30-2022 Emergency department patient visit [employer] INSTRUMENTS ASSEMBLER-Jasbir Cummins MUSICAL INSTRUMENTS ASSEMBLER Work Phone: [facility]-Emergency Department Start: 07-27-2022 Registered Referred [employer] INSTRUMENTS ASSEMBLER-C Liz Cummins MUSICAL INSTRUMENTS ASSEMBLER Work Phone: [facility] Start: 07-27-2022 Non-patient / Non-visit [employer] INSTRUMENTS ASSEMBLER-C Soto Cummins MUSICAL INSTRUMENTS ASSEMBLER Work Phone: [facility] Start: 07-27-2022 End: 07-27-2022 ambulatory [employer] IN[employer]UMENTS ASSEMBLER-C David Cummins MUSICAL INSTRUMENTS ASSEMBLER Work Phone: [facility] Work Phone: Start: 07-27-2022 End: 07-27-2022 Patient encounter procedure MUSICAL INSTRUMENTS ASSEMBLER-Jasbir Cummins MUSICAL INSTRUMENTS ASSEMBLER Work Phone: [facility] Start: 07-20-2022 End: 07-20-2022 Patient encounter procedure MUSICAL INSTRUMENTS ASSEMBLER-Jasbir Cummins MUSICAL INSTRUMENTS ASSEMBLER Work Phone: [facility] Start: 07-16-2022 End: 07-16-2022 ambulatory MUSICAL INSTRUMENTS ASSEMBLER-C David Cummins MUSICAL INSTRUMENTS ASSEMBLER Work Phone: [facility] Work Phone: Start: 07-16-2022 End: 07-16-2022 Patient encounter procedure MUS[employer] INSTRUMENTS ASSEMBLER-C David Cummins MUSICAL INSTRUMENTS ASSEMBLER Work Phone: [facility]-Laboratory Start: 07-12-2022 Non-patient / Non-visit [employer] INSTRUMENTS ASSEMBLER-C Soto Cummins MUSICAL INSTRUMENTS ASSEMBLER Work Phone: [facility] Inpatient Phys[facility] Start: 07-12-2022 Non-patient / Non-visit MUSICAL INSTRUMENTS ASSEMBLER-C R nusrat Cummins MUSICAL INSTRUMENTS ASSEMBLER Work Phone: [facility] Start: 07-11-2022 Non-patient / Non-visit MUSICAL INSTRUMENTS ASSEMBLER-C Soto Cummins MUSICAL INSTRUMENTS ASSEMBLER Work Phone: [facility] Start: 07-11-2022 End: 07-12-2022 Evaluation and management of inpatient MUSICAL INSTRUMENTS ASSEMBLER-C David Cummins MUSICAL INSTRUMENTS ASSEMBLER Work Phone: [facility]-Progressive Care Unit Start: 07-11-2022 End: 07-12-2022 observation encounter MUSICAL INSTRUMENTS ASSEMBLER-C David Cummins MUSICAL INSTRUMENTS ASSEMBLER Work Phone: [facility] Work Phone: Start: 05-20-2022 Non-patient / Non-visit MUSICAL INSTRUMENTS ASSEMBLER-C Soto Cummins MUSICAL INSTRUMENTS ASSEMBLER Work Phone: [facility] Start: 05-20-2022 End: 05-20-2022 ambulatory MUS[employer] INSTRUMENTS ASSEMBLER-C David Cummins MUSICAL INSTRUMENTS ASSEMBLER Work Phone: [facility] Work Phone: Start: 05-20-2022 End: 05-20-2022 Patient encounter procedure MUSICAL INSTRUMENTS ASSEMBLER-C David Cummins MUSICAL INSTRUMENTS ASSEMBLER Work Phone: [facility]-Cardiovascul[facility] r Services Start: 05-17-2022 End: 05-17-2022 ambulatory MUS[employer] INSTRUMENTS ASSEMBLER-C David Cummins MUSICAL INSTRUMENTS ASSEMBLER Work Phone: [facility] Work Phone: Start: 05-17-2022 End: 05-17-2022 Patient encounter procedure MUSICAL INSTRUMENTS ASSEMBLER-Jasbir Cummins MUSICAL INSTRUMENTS ASSEMBLER [facility] Start: 04-30-2022 End: 04-30-2022 ambulatory [facility] Work Phone: Start: 04-30-2022 End: 04-30-2022 Patient encounter procedure [facility]-Laboratory Start: 04-15-2022 End: 04-15-2022 ambulatory [facility] Work Phone: Start: 04-15-2022 End: 04-15-2022 Patient encounter procedure [facility]-Radiology, [facility] Start: 01-15-2022 End: 01-15-2022 ambulatory [facility] Work Phone: Start: 01-15-2022 End: 01-15-2022 Patient encounter procedure [facility]-Laboratory Start: 10-07-2021 End: 10-07-2021 Patient encounter procedure [employer] INSTRUMENTS ASSEMBLER-Jasbir Cummins MUSICAL INSTRUMENTS ASSEMBLER Work Phone: [facility] Start: 09-23-2021 End: 09-23-2021 Patient encounter procedure DAVID CUMMINS [employer] - EMPLOYMENT TRAINING SPECIALIST [facility] Start: 09-13-2021 End: 09-13-2021 Patient encounter procedure [employer]ICAL INSTRUMENTS ASSEMBLER-Jasbir Cummins MUSICAL INSTRUMENTS ASSEMBLER Work Phone: [facility]-Laboratory, Specimen Start: 09-10-2021 End: 09-10-2021 Patient encounter procedure MUSICAL INSTRUMENTS ASSEMBLER-Jasbir Cummins MUSICAL INSTRUMENTS ASSEMBLER Work Phone: [facility]-Radiology, [facility] Start: 08-14-2021 End: 08-14-2021 Emergency department patient visit MUSICAL INSTRUMENTS ASSEMBLER-Jasbir Cummins MUSICAL INSTRUMENTS ASSEMBLER Work Phone: [facility]-Emergency Department Start: 08-10-2021 Non-patient / Non-visit [employer]UMENTS ASSEMBLER-C R nusrat Cummins MUSICAL INSTRUMENTS ASSEMBLER Work Phone: [facility] Start: 08-09-2021 Non-patient / Non-visit [employer] IN[employer]UMENTS ASSEMBLER-C R nusrat Cummins MUSICAL INSTRUMENTS ASSEMBLER Work Phone: [facility] Start: 08-09-2021 Non-patient / Non-visit [employer]UMENTS ASSEMBLER-C R nusrat Cummins MUSICAL INSTRUMENTS ASSEMBLER Work Phone: [facility] Start: 08-08-2021 Non-patient / Non-visit [employer] INSTRUMENTS ASSEMBLER-C R nusrat Cummins MUSICAL INSTRUMENTS ASSEMBLER Work Phone: [facility] Start: 08-08-2021 Non-patient / Non-visit [employer] INSTRUMENTS ASSEMBLER-C R nusrat Cummins MUSICAL INSTRUMENTS ASSEMBLER Work Phone: [facility] Start: 08-07-2021 Non-patient / Non-visit [employer] INSTRUMENTS ASSEMBLER-C R nusrat Cummins MUSICAL INSTRUMENTS ASSEMBLER Work Phone: [facility] Start: 08-07-2021 Non-patient / Non-visit MUSICAL INSTRUMENTS ASSEMBLER-C R nusrat Cummins MUSICAL INSTRUMENTS ASSEMBLER Work Phone: [facility] Start: 08-07-2021 Non-patient / Non-visit MUS[employer] INSTRUMENTS ASSEMBLER-C R nusrat Cummins MUSICAL INSTRUMENTS ASSEMBLER Work Phone: [facility] Start: 08-06-2021 Non-patient / Non-visit MUSICAL INSTRUMENTS ASSEMBLER-C R nusrat Cummins MUSICAL INSTRUMENTS ASSEMBLER Work Phone: [facility] Start: 08-05-2021 Non-patient / Non-visit MUSICAL INSTRUMENTS ASSEMBLER-C R nusrat Cummins MUSICAL INSTRUMENTS ASSEMBLER Work Phone: [facility] Start: 08-04-2021 End: 08-10-2021 Evaluation and management of inpatient [facility]-Progressive Care Unit Start: 07-29-2021 End: 07-29-2021 Patient encounter procedure [facility]-Laboratory Start: 06-26-2021 End: 06-26-2021 Patient encounter procedure [facility]-Laboratory Procedures Date Procedure Procedure Detail Performing Clinician Start: 04-29-2024 Measurement of renal function David Cummins [employer] INSTRUMENTS ASSEMBLER-C Work Phone: Comment on above: GFR Calc Start: 04-29-2024 Microalbuminuria measurement David Cummins [employer]ICAL INSTRUMENTS ASSEMBLER-C Work Phone: Start: 04-29-2024 Prostate specific an tigen measurement David Placido MUSICAL INSTRUMENTS ASSEMBLER-C Work Phone: Comment on above: This test was perfor med using the TPSA assay method for [employer] chemistry system. Values obtained with differentassay methods cannot be used interchangably.When changing PSA assays in the course of monitoring apatient, additional sequential testing should be carriedout to confirm baseline values. 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 Work Phone: Start: 07-11-2022 Plain chest X-ray [employer]UMENTS ASSEMBLER-C David Cummins MUSICAL INSTRUMENTS ASSEMBLER Work Phone: Start: 07-11-2022 CT angiography of he ad and neck [employer]UMENTS ASSEMBLER-C David Cummins MUSICAL INSTRUMENTS ASSEMBLER Work Phone: Start: 07-11-2022 CT of head without contrast MUSICAL INSTRUMENTS ASSEMBLER-C David Cummins MUSICAL INSTRUMENTS ASSEMBLER Work Phone: Start: 05-17-2022 Radiologic examinati on of knee [employer] INSTRUMENTS ASSEMBLER-C David Cummins MUSICAL INSTRUMENTS ASSEMBLER Work Phone: Start: 04-15-2022 Radiologic examinati on of knee Start: 10-07-2021 Radiologic examinati on of knee [employer] INSTRUMENTS ASSEMBLER-C David Cummins MUSICAL INSTRUMENTS ASSEMBLER Work Phone: Start: 09-10-2021 Plain chest X-ray [employer]UMENTS ASSEMBLER-C David Cummins MUSICAL INSTRUMENTS ASSEMBLER Work Phone: Start: 08-14-2021 SARS-CoV-2 & FLU Ant igen (Rapid) [employer]UMENTS ASSEMBLER-C David Cummins MUSICAL INSTRUMENTS ASSEMBLER Work Phone: Start: 08-14-2021 Plain chest X-ray [employer]ICAL INSTRUMENTS ASSEMBLER-C Daivd Cummins MUSICAL INSTRUMENTS ASSEMBLER Work Phone: Start: 08-07-2021 Bacteria identified in Blood by Culture [employer]STRUMENTS ASSEMBLER-C David Cummins MUSICAL INSTRUMENTS ASSEMBLER Work Phone: Start: 08-06-2021 Plain chest X-ray [employer]UMENTS ASSEMBLER-C David Cummins MUSICAL INSTRUMENTS ASSEMBLER Work Phone: Start: 08-05-2021 Investigation of tra nsfusion reaction [employer] INSTRUMENTS ASSEMBLER-C David Cummins MUSICAL INSTRUMENTS ASSEMBLER Work Phone: Start: 08-05-2021 Respiratory microbia l culture [employer] INSTRUMENTS ASSEMBLER-C David Cummins MUSICAL INSTRUMENTS ASSEMBLER Work Phone: Start: 08-04-2021 CT angiography of ch est with contrast Start: 08-04-2021 End: 08-04-2021 Legionella pneumophila antigen assay Start: 08-04-2021 Respiratory Panel (PCR) Start: 08-04-2021 Streptococcus pneumo niae Antigen (M Start: 08-04-2021 Plain chest X-ray Start: 07-29-2021 Plain chest X-ray Start: 04-11-2017 Nerve conduction study DAVID CUMMINS [employer] - EMPLOYMENT TRAINING 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 Start: 03-18-2016 Doppler ultrasonogra phy of vein DAVID CUMMINS [employer] - EMPLOYMENT TRAINING SPECIALIST Bacteria identified in Blood by Culture [employer]SEM[employer]ER-C David Cummins [employer]ICAL INSTRUMENTS ASSEMBLER Work Phone: Investigation of tra nsfusion reaction [employer]UMENTS ASSEMBLER-C David Cummins MUSICAL INSTRUMENTS ASSEMBLER Work Phone: Legionella pneumophi la antigen assay [employer]UMENTS ASSEMBLER-C David Cummins MUSICAL INSTRUMENTS ASSEMBLER Work Phone: Respiratory microbia l culture [employer]UMENTS ASSEMBLER-C David Cummins MUSICAL INSTRUMENTS ASSEMBLER Work Phone: SARS-CoV-2 & FLU Ant igen (Rapid) [employer]UMENTS ASSEMBLER-C David Cummins MUSICAL INSTRUMENTS ASSEMBLER Work Phone: Streptococcus pneumo niae Antigen (M [employer] INSTRUMENTS ASSEMBLER-C David Cummins MUSICAL INSTRUMENTS ASSEMBLER Work Phone: Plan of Treatment Date Care Activity Detail Author Start: 07-12-2022 Patient discharge [facility] Start: 07-12-2022 Referral to occupational therapist [facility] Start: 07-11-2022 Continuous pulse oximetry [facility] Start: 07-11-2022 Dual pressure spontaneous ventilation support [facility] Start: 07-11-2022 Following clinical pathway protocol [facility] Start: 07-11-2022 Assessment of risk of venous thromboembolism [facility] Start: 07-11-2022 Cardiac monitoring [facility] Start: 07-11-2022 Care regimes management [facility] Start: 07-11-2022 Catheterization of vein [facility] Start: 07-11-2022 Elevation of head of bed [facility] Start: 07-11-2022 Exercises [facility] Start: 07-11-2022 Implementation of planned interventions [facility] Start: 07-11-2022 Insertion of catheter into peripheral vein [facility] Start: 07-11-2022 Measuring intake and output [facility] Start: 07-11-2022 Notification of physician [facility] Start: 07-11-2022 Oxygen therapy [facility] Start: 07-11-2022 Patient referral to dietitian [facility] Start: 07-11-2022 Providing care according to standard [facility] Start: 07-11-2022 Provision of activity privileges [facility] Start: 07-11-2022 Referral to service [facility] Start: 07-11-2022 Tobacco use cessation education [facility] Start: 07-11-2022 [facility] Start: 07-11-2022 Verification routine [facility] Start: 07-11-2022 Admission procedure [facility] Start: 07-11-2022 Oxygen therapy [facility] Start: 07-11-2022 [facility] Start: 09-13-2021 Bacteria identified in Sputum by Culture [facility] Work Phone: Start: 08-10-2021 Patient discharge [facility] Work Phone: Start: 08-09-2021 Contact precautions [facility] Work Phone: Start: 08-07-2021 Bacteria identified in Blood by Culture Blood Culture [facility] Work Phone: Start: 08-07-2021 Consultation [facility] Work Phone: Start: 08-07-2021 [facility] Work Phone: Start: 08-07-2021 [facility] Work Phone: Start: 08-06-2021 Consultation [facility] Work Phone: Start: 08-05-2021 Incentive spirometry [facility] Work Phone: Start: 08-05-2021 Physiotherapy of chest [facility] Work Phone: Start: 08-05-2021 Methicillin resistant Staphylococcus aureus screening test [facility] Work Phone: Start: 08-05-2021 Continuous positive airway pressure ventilation treatment [facility] Work Phone: Start: 08-04-2021 Application of intermittent pneumatic compression device [facility] Work Phone: Start: 08-04-2021 Assessment of risk of venous thromboembolism [facility] Work Phone: Start: 08-04-2021 Care regimes management [facility] Work Phone: Start: 08-04-2021 Fall prevention [facility] Work Phone: Start: 08-04-2021 Incentive spirometry [facility] Work Phone: Start: 08-04-2021 Inhalation therapy procedure [facility] Work Phone: Start: 08-04-2021 Insertion of catheter into peripheral vein [facility] Work Phone: Start: 08-04-2021 Introduction of urinary catheter [facility] Work Phone: Start: 08-04-2021 Measuring intake and output [facility] Work Phone: Start: 08-04-2021 Oxygen therapy [facility] Work Phone: Start: 08-04-2021 Providing care according to standard [facility] Work Phone: Start: 08-04-2021 Provision of activity privileges [facility] Work Phone: Start: 08-04-2021 Referral to service [facility] Work Phone: Start: 08-04-2021 [facility] Work Phone: Start: 08-04-2021 Following clinical pathway protocol [facility] Work Phone: Start: 08-04-2021 Admission procedure [facility] Work Phone: Start: 08-04-2021 Bacteria identified in Blood by Culture Blood Culture [facility] Work Phone: Cardiac event recording [facility] Patient Education Diabetes: Meal Planning [facility] Work Phone: Patient referral [facility] Work Phone: Respiratory microbia l culture Respiratory Culture [facility] Work Phone: Payers Date Payer Category Payer Self-pay [id number] 2022 Medicare [id number] 2020 Medicare [id number] 2020 Private Health Insurance [id number] 1970 Unknown [id number] 2.16.8 [id number] 1969 Unknown [id number] 2.16.8 [id number] 1969 Unknown [id number] 2.16.8 [id number] 1969 Unknown [id number] 2.16.8 [id number] 1969 Unknown [id number] 2.16.8 [id number] 1969 Unknown [id number] 2.16.8 [id number] 1969 Unknown [id number] 2.16.8 [id number] 1970 Unknown [id number] 2.16.8 [id number] Unknown [id number] 2.16.8 [id number] Unknown [id number] 2.16.8 [id number] Unknown [id number] 2.16.8 [id number] Social History Date Type Detail Facility Start: 08-04-2021 End: 07-30-2022 Tobacco smoking status NVIS Unknown if ever smoked [facility] Start: 1970 Sex Assigned At Male A [facility] Start: 10-26-2018 End: 04-07-2023 Tobacco smoking status Ex-smoker (finding) [facility] Comment on above: No smoke exposure Start: 07-11-2022 Cigarettes [facility] Start: 09-12-2018 Sex Male (finding) [facility] Medical Equipment Procedure Code Equipment Code Equipment Origin al Text Equipment Identifier Dates See Instructions , 1 bottle of 100, # 1 EA, 11 Refill(s), 170, cm, 05/07/19 10:24:00 EST, Height, 155.8, kg, 05/07/19 10:20:00 EST, Dosing Weight Start: 07-18-2019 See Instructions , qs 1 month supply, # 1 EA, 11 Refill(s), 158.3 Start: 05-21-2020 See Instructions , 31G/8mm pen needles, four pen needles per day secondary to the quick acting & bolus insulins. Quantiy 360 pen needles based on 90 day Rx Refill: 3, # 1 EA, 3 Refill(s), Pharmacy: [facility], DM type 2, goal HbA1... Start: 01-19-2021 See Instructions , 1 bottle of 100, # 1 EA, 11 Refill(s), 170, cm, 05/07/19 10:24:00 EST, Height, 155.8, kg, 05/07/19 10:20:00 EST, Dosing Weight Start: 07-18-2019 See Instructions , qs 1 month supply, # 1 EA, 11 Refill(s), 158.3 Start: 05-21-2020 See Instructions , 31G/8mm pen needles, four pen needles per day secondary to the quick acting & bolus insulins. Quantiy 360 pen needles based on 90 day Rx Refill: 3, # 1 EA, 3 Refill(s), Pharmacy: [facility], DM type 2, goal HbA1c < 7.5%, 173, cm, 07/25/22 13:56:00 EDT, Height, 179.6, kg, 07/25/22 13:56:00 EDT, Dosing Weight Start: 08-04-2022 See Instructions , 1 bottle of 100, # 1 EA, 11 Refill(s), 170, cm, 05/07/19 10:24:00 EST, Height, 155.8, kg, 05/07/19 10:20:00 EST, Dosing Weight Start: 07-18-2019 See Instructions , qs 1 month supply, # 1 EA, 11 Refill(s), 158.3 Start: 05-21-2020 See Instructions , 31G/8mm pen needles, four pen needles per day secondary to the quick acting & bolus insulins. Quantiy 360 pen needles based on 90 day Rx Refill: 3, # 1 EA, 3 Refill(s), Pharmacy: [facility], DM type 2, goal HbA1c < 7.5%, 173, cm, 07/25/22 13:56:00 EDT, Height, 179.6, kg, 07/25/22 13:56:00 EDT, Dosing Weight Start: 08-04-2022 See Instructions , 1 bottle of 100, # 1 EA, 11 Refill(s), Pharmacy: [facility], 170, cm, 04/13/23 13:42:00 EST, Height, 160, kg, 04/13/23 13:42:00 EST, Dosing Weight Start: 05-04-2023 See Instructions , qs 1 month supply, # 1 EA, 11 Refill(s), 158.3 Start: 05-21-2020 See Instructions , 31G/8mm pen needles, four pen needles per day secondary to the quick acting & bolus insulins. Quantiy 360 pen needles based on 90 day Rx Refill: 3, # 1 EA, 3 Refill(s), Pharmacy: [facility], DM type 2, goal HbA1c < 7.5%, 168, cm, 07/07/23 9:06:00 EDT, Height, 157.3, kg, 07/07/23 9:06:00 EDT, Dosing Weight Start: 07-18-2023 See Instructions , 1 bottle of 100, # 1 EA, 11 Refill(s), Pharmacy: [facility], 170, cm, 04/13/23 13:42:00 EST, Height, 160, kg, 04/13/23 13:42:00 EST, Dosing Weight Start: 05-04-2023 See Instructions , qs 1 month supply, # 1 EA, 11 Refill(s), 158.3 Start: 05-21-2020 See Instructions , 31G/8mm pen needles, four pen needles per day secondary to the quick acting & bolus insulins. Quantiy 360 pen needles based on 90 day Rx Refill: 3, # 1 EA, 3 Refill(s), Pharmacy: [facility], DM type 2, goal HbA1c < 7.5%, 168, cm, 07/07/23 9:06:00 EDT, Height, 157.3, kg, 07/07/23 9:06:00 EDT, Dosing Weight Start: 07-18-2023 See Instructions , 1 bottle of 100, # 1 EA, 11 Refill(s), Pharmacy: [facility], 169, cm, 05/17/24 10:17:00 EST, Height, 154.2, kg, 05/17/24 10:17:00 EST, Dosing Weight Start: 05-29-2024 See Instructions , qs 1 month supply, # 1 EA, 11 Refill(s), 158.3 Start: 05-21-2020 See Instructions , 31G/8mm pen needles, four pen needles per day secondary to the quick acting & bolus insulins. Dx: E11.9, # 400 EA, 3 Refill(s), Pharmacy: [facility], DM type 2, goal HbA1c < 7.5%, 169, cm, 05/17/24 10:17:00 EST, Height, 154.4, kg, 06/03/24 14:04:00 EDT, Dosing Weight Start: 06-12-2024 See Instructions , 1 bottle of 100, # 1 EA, 11 Refill(s), Pharmacy: [facility], 169, cm, 05/17/24 10:17:00 EST, Height, 154.2, kg, 05/17/24 10:17:00 EST, Dosing Weight Start: 05-29-2024 See Instructions , qs 1 month supply, # 1 EA, 11 Refill(s), 158.3 Start: 05-21-2020 See Instructions , 31G/8mm pen needles, four pen needles per day secondary to the quick acting & bolus insulins. Dx: E11.9, # 400 EA, 3 Refill(s), Pharmacy: [facility], DM type 2, goal HbA1c < 7.5%, 169, cm, 05/17/24 10:17:00 EST, Height, 154.4, kg, 06/03/24 14:04:00 EDT, Dosing Weight Start: 06-12-2024 Goals Date Patient Goal Desired Activity /State Functional Status Date Assessment Result Facility 12-08-2022 Functional Status Repositions self [facility] 12-08-2022 Functional Status Door open, Room check performed [facility] 12-08-[address] [facility] 12-08-[address] [facility] 12-08-2022 Functional Status 3am-7am [facility] 12-07-[address] [facility] 12-07-[address] [facility] 12-07-[address] [facility] 12-07-[address] [facility] 12-07-[address] [facility] 12-06-2022 Functional Status Independent [facility] 12-06-2022 Functional Status Ambulation Ambulation i n Room [facility] 12-06-2022 [facility] Functional Status [facility] 12-06-2022 Functional Status [facility] 12-05-2022 Functional Status [facility] 12-05-2022 Functional Status Single level home [facility] 12-05-[address] [facility] 12-04-2022 Functional Status Sequential Com pression Device bilateral knee high removed/off [facility] 12-04-2022 Functional Status Sensory Deficits None A [facility] 12-04-2022 Functional Status Ambulation in [facility] 07-12-2022 Functional status Ambulates;Up ad gurwinder [facility] Work Phone: 08-10-2021 Functional status Up ad gurwinder;Chair [facility] Work Phone: 08-05-2021 Functional status Activity Abili ty Standby Assist;With Assist of 1 [facility] Work Phone: Mental Status Date Assessment Result Facility 12-08-2022 Mental Status Orientation Oriented x 4 [facility] 12-07-2022 Mental Status [facility] 12-07-2022 Mental Status [facility] 12-06-2022 Mental Status [facility] 12-04-2022 Mental Status Orientation Oriented x 4 [facility] 07-30-2022 Cognitive function Level Of Cons ciousness Awake;Alert;Appropriate [facility] Work Phone: 07-12-2022 Cognitive function Voice/Name [facility] Work Phone: 07-11-2022 Cognitive function Patient Orien tation Person;Place;Time [facility] Work Phone: 08-10-2021 Cognitive function Voice/Name [facility] Work Phone: 08-05-2021 Cognitive function Voice/Name [facility] Work Phone: Clinical Notes 07-11-2022 to 08-14-2024 Note Date & Type Note Facility 08-14-2024 Hospital Discharge instructions Patient Education 08/14/2024 19:00:11 Allergic Reaction, Drug Medicine Reaction: Allergic You are having an allergic reaction to a medicine you have taken. This may cause an itchy rash and sometimes swelling of various parts of the body. It could also cause trouble swallowing or breathing. The rash may take a few hours or up to 2 weeks to go away. In the future, remember to tell your healthcare provider about your allergy to this medicine so that medicines of this type won't be used again. Any medicine can cause an allergic reaction. But the most allergic reactions are caused by: Penicillin and related medicines Aspirin Ibuprofen Seizure medicines Vaccines may also trigger allergies. People whose parents or siblings have allergies are at a higher risk of developing a medicine allergy. Allergy testing may sometimes be needed to figure out the cause. Symptoms may occur within minutes, hours, or even weeks after exposure to the medicine. It can be a mild or severe reaction, or potentially life threatening. Most of us think of allergic reactions when we have a rash or itchy skin. Symptoms can include: Rash, hives, redness, welts, blisters Itching, burning, stinging, pain Dry, flaky, cracking, scaly skin Belly (abdominal) cramps or nausea or stomach pain Fever. Sometimes fever is the only symptom of a drug reaction. In older adults, the risk of fever increases with the number of medicines the person takes. More severe symptoms include: Swelling of the face or lips, or drooling Trouble swallowing, feeling like your throat is closing Trouble breathing, wheezing Hoarse voice or trouble speaking Severe nausea or vomiting or diarrhea Feeling faint or lightheaded, rapid heart rate Blistering of the skin, or ulcers in the mouth or on the genitals Home care The goal of treatment is to help relieve the symptoms, and get you feeling better. Mild to medium medicine reactions usually respond quickly to antihistamines, steroids, and stopping the medicine. The rash will usually fade over several days. But it can sometimes last a couple of weeks. Over the next couple of days, there may be times when it is gets a little worse, and then better again. Here are some things to do: Throw the medicine away and don t take it again. The next reaction could be the same or worse. Call your health care provider to discuss adding this medicine allergy reaction to your electronic medical record. When getting a new medicine, always tell the healthcare provider that you are allergic to this medicine. Make certain the provider writes it down in your medical record. Avoid tight clothing and anything that heats up your skin (hot showers or baths, direct sunlight). Heat will make itching worse. An ice pack will relieve local areas of intense itching and redness. To make an ice pack, put ice cubes in a plastic bag that seals at the top. Wrap the bag in a clean, thin towel or cloth. Don t put ice directly on the skin. To help prevent an infection, don't scratch the affected area. Scratching may worsen the reaction. It can damage your skin and lead to an infection. Always check the affected site for signs of an infection. Your provider may give you a prescription antihistamine. If you are not given a prescription antihistamine, oral diphenhydramine is an [id number] antihistamine available at pharmacies and grocery stores. This may be used to reduce itching if large areas of the skin are involved. This antihistamine may make you sleepy, so be careful using it in the daytime or when going to school, working, or driving. Note: Don t use diphenhydramine if you have glaucoma or if you are a man with trouble urinating due to an enlarged prostate. There are other antihistamines that cause less drowsiness and are a good choice for daytime use. Ask your pharmacist or health care provider for suggestions. Don't use diphenhydramine cream on your skin. It can cause a further skin reaction for some people. Contact your healthcare provider and ask what can be used on the affected area to help decrease the itching. Follow-up care Follow up with your healthcare provider, or as advised if your symptoms do not continue to improve or they get worse. Call 911 Call 911 if any of these occur: Shortness of breath Cool, moist, pale skin Swelling in the face, eyelids, mouth, tongue, or lips Drooling Trouble breathing or swallowing, wheezing New or worsening swelling in the mouth, throat, or tongue Hoarse voice or trouble speaking Fainting or loss of consciousness Rapid heart rate Feeling of dizziness or weakness or a sudden drop in blood pressure Feeling of doom Feeling lightheaded Severe nausea, vomiting, or diarrhea When to seek medical advice Call your healthcare provider right away if any of these occur: Continuing or recurring symptoms Nausea, abdominal cramps or stomach pain Spreading areas of itching, redness or swelling Blistering of the skin or sores or ulcers in the mouth or on the genitals Signs of infection: oSpreading redness oIncreased pain or swelling oFever of 100.4 F (38 C) or above lasting for 24 to 48 hours, or as directed by your provider oFluid or colored drainage from the affected area [id number] [employer] [address] [place] [address], [place] [address]. All rights reserved. This information is not intended as a substitute for professional medical care. Always follow your healthcare professional's instructions. Follow Up Care 08/14/2024 18:03:25 With:BOOGIE ZALDIVAR Address: [address] [place] [phone] When:2-4 days [facility] 08-14-2024 Note Discharge Instructions Thank you for allowing [facility] to assist you with your healthcare needs. The following is important discharge information regarding your hospital visit. Diagnosis from Today's Visit Allergic reaction to drug What to Do Next Instructions from Your Care Team No qualifying data available. Post Acute Orders No qualifying data available. You Need to Schedule the Following Appointments Follow Up with BOOGIE ZALDIVAR When:Within 2-4 days Where:[address] [place] [id number] [phone] Allergies Bee Stings Unknown Byetta Prefilled Pen [place]on sick [id number]-[id number] DS Rash amoxicillin amoxicillin metFORMIN Diarrhea penicillin Drowsiness Medications Please ask your primary doctor or pharmacist before taking any other medication not listed, including over the counter drugs, herbal medications, vitamins and or supplements as they may interact with your home medications. What How Much When Why Instructions Last Dose New doxycycline (doxycycline hyclate 100 mg oral capsule) 1 cap by mouth Two (2) times a day Duration: 10 Days Printed Prescription New predniSONE (predniSONE 20 mg oral tablet) 2 tab(s) by mouth Once a day Duration: 5 Days Printed Prescription Unchanged acetaminophen (Tylenol 325 mg oral capsule) 650 Milligram by mouth Every 4 hours as needed for Pain, scale 1-3 Unchanged albuterol (ProAir HFA MDI (90 mcg/ inh) inhalation aerosol) 2 puff(s) by inhalation Every 6 hours as needed for as needed for wheezing Asthma Duration: 30 Days Unchanged amLODIPine (Norvasc 5 mg oral tablet) 1 tab(s) by mouth Two (2) times a day HTN, goal below 140/90 Duration: 90 Days Unchanged celecoxib (CeleBREX 200 mg oral capsule) 1 cap by mouth Once a day Osteoarthritis of multiple joints Unchanged DME (Blood Glucose Test Strips) See instructions 1 bottle of 100 Unchanged DME (DME MISCellaneous) See instructions Glucometer Test Kit-One that insurance will cover Unchanged DME (DME MISCellaneous) See instructions Peripheral edema Knee-high compression stockings with compression of 20-30. Requesting 2 pairs. Unchanged DME (DME MISCellaneous) See instructions Libre3 Sensors #2 sensors. Apply to arm once every 14 days to monitor glucose Unchanged DME (DME MISCellaneous) See instructions DM type 2, goal HbA1c < 7.5% PT. REQUESTING 2 PAIR OF COMPRESSION SOCKS. 30/ 40 COMPRESSION Unchanged DME (DME MISCellaneous) See instructions Chronic venous insufficiency Compression socks, knee high with compression 30-40 Unchanged DME (DME MISCellaneous) See instructions Lower extremity edema Knee-high compression stockings with compression to 20-30. Unchanged DME (Lancets) See instructions qs 1 month supply Unchanged DME (Pen needles 8 mm) See instructions DM type 2, goal HbA1c < 7.5% 31G/ 8mm pen needles, four pen needles per day secondary to the quick acting & bolus insulins. Dx: E11.9 Unchanged EPINEPHrine (EpiPen 2-Jamal 0.3 mg injectable kit) 0.3 Milligram Subcutaneous As Directed as needed for Allergic reaction Unchanged fluticasone nasal (fluticasone 50 mcg/ inh NASAL spray) 2 spray(s) each nostril Once a day Allergic rhinitis Duration: 30 Days shake well before using Unchanged furosemide (Lasix 20 mg oral tablet) 1 tab(s) by mouth Once a day Unchanged gabapentin (gabapentin 400 mg oral capsule) 1 cap by mouth Three (3) times a day Unchanged guaiFENesin (Mucinex 600 mg oral tablet, extended release) 1 tab(s) by mouth Every 12 hours Duration: 30 Days Unchanged insulin isophane (NPH) - insulin regular (HumuLIN 70/ 30 KwikPen 70 units-30 units/ mL subcutaneous suspension) 60 unit(s) Subcutaneous Two (2) times daily before meals Unchanged liraglutide (Victoza 18 mg/ 3 mL subcutaneous Pen) 1.8 Milligram Subcutaneous Once a day Duration: 30 Days Unchanged loratadine (loratadine 10 mg oral tablet) 1 tab(s) by mouth Once a day Allergic rhinitis Unchanged olodaterol-tiotropium (Stiolto Respimat 60 ACT 2.5 mcg-2.5 mcg/ inh inhalation aerosol) 2 puff(s) by inhalation Every 24 hours COPD with asthma Unchanged pioglitazone (pioglitazone 45 mg oral tablet) 1 tab(s) by mouth Every day Unchanged rosuvastatin (rosuvastatin 40 mg oral tablet) 1 tab(s) by mouth Once a day Hyperlipidemia LDL goal <100 Duration: 90 Days Please take this list to your next doctor s visit. Bring all medications you take, including over the counter medications, herbals and other supplements with you to your doctor s visit. Patients and families are reminded to discard old lists and to update any records with all medication providers or retail pharmacies. Medication Leaflets doxycycline (oral/injection) (DOX susan sanchez) Acticlate, Adoxa, Alodox, Avidoxy, Doryx, Lymepak, Mondoxyne NL, Monodox, Morgidox, Okebo, Oracea, Targadox What is the most important information I should know about doxycycline? You should not take this medicine if you are allergic to any tetracycline antibiotic. Children younger than 8 years old should use doxycycline only in cases of severe or life-threatening conditions. This medicine can affect tooth development and growth and cause permanent yellowing or graying of the teeth in children. Using doxycycline during could harm the unborn baby or cause permanent tooth discoloration later in the baby's life. What is doxycycline? Doxycycline is used to treat many different bacterial infections, such as acne, urinary tract infections, intestinal infections, respiratory infections, eye infections, certain sexually transmitted infections, periodontitis (gum disease), and others. Doxycycline is also used to treat blemishes, bumps, and acne-like lesions caused by rosacea. Doxycycline will not treat facial redness caused by rosacea. Some forms of doxycycline are used to prevent malaria, to treat anthrax, or to treat infections caused by mites, ticks, or lice. Doxycycline may also be used for purposes not listed in this medication guide. What should I discuss with my healthcare provider before using doxycycline? You should not use this medicine if you are allergic to doxycycline or other tetracycline antibiotics such as demeclocycline, minocycline, tetracycline, or tigecycline. Tell your doctor if you have or have ever had: increased pressure inside your skull; diarrhea or diarrhea that is watery; stomach surgery; vision problems; vagina infection; take iron supplements, multivitamins, calcium supplements, laxatives, medicine containing bismuth subsalicylate, or antacids containing aluminum, calcium, or magnesium; use a proton pump inhibitor (such as omeprazole, esomeprazole, Nexium, Prevacid, Prilosec, or Protonix); if you also take isotretinoin or acitretin, seizure medicine, or a blood thinner such as warfarin (Coumadin); or liver or kidney disease. If you are using doxycycline to treat gonorrhea, your doctor may test you to make sure you do not also have syphilis, another sexually transmitted disease. Taking this medicine during may affect tooth and bone development in the unborn baby. Taking doxycycline during the last half of can cause permanent tooth discoloration later in the baby's life. Tell your doctor if you are or plan to become . Doxycycline can make control pills less effective. Ask your doctor about other control options such as an injection, implant, skin patch, vaginal ring, condom, diaphragm, cervical cap, or contraceptive sponge. Doxycycline can pass into breast milk and may affect bone and tooth development in a nursing infant. Do not breastfeed while you are taking doxycycline, and for at least 5 days after your last dose. Doxycycline can affect tooth development and growth and cause permanent yellowing or graying of the teeth in children younger than 8 years old. Children should use doxycycline only in cases of severe or life-threatening conditions such as anthrax or [place] spotted fever. The benefit of treating a serious condition may outweigh any risks to the child's tooth development. How should I use doxycycline? Follow all directions on your prescription label and read all medication guides or instruction sheets. Use the medicine exactly as directed. Your doctor will perform tests to make sure doxycycline is the right treatment for you. Take doxycycline with a full glass of water. Drink plenty of liquids while you are taking doxycycline. Most brand forms of doxycyline may be taken with food or milk if the medicine upsets your stomach. Different brand forms of doxycycline may have different instructions about taking them with or without food. Take Oracea on an empty stomach, at least 1 hour before or 2 hours after a meal. Swallow a delayed-release capsule or tablet whole. Do not crush, chew, break, or open it. Measure liquid medicine with the supplied measuring device (not a kitchen spoon). If you take doxycycline to prevent malaria: Start taking the medicine 1 or 2 days before entering an area where malaria is common. Continue taking the medicine every day during your stay and for at least 4 weeks after you leave the area. Doxycycline may be given as an infusion into a vein. A healthcare provider will give you this injection. Keep using this medicine even if your symptoms quickly improve. Skipping doses could make your infection resistant to medication. Doxycycline will not treat a viral infection (flu or a common cold). Store at room temperature away from moisture, heat, and light. What happens if I miss a dose? Call your doctor for instructions if you miss a dose or if you miss an appointment for your doxycycline injection. What happens if I overdose? Seek emergency medical attention or call the Poison Help line at . What should I avoid while using doxycycline? Do not take iron supplements, multivitamins, calcium supplements, laxatives, bismuth subsalicylate, or antacids containing aluminum, calcium, or magnesium within 2 hours before or after using doxycycline. Avoid taking any other antibiotics with doxycycline unless your doctor has told you to. Doxycycline could make you sunburn more easily. Avoid sunlight or tanning beds. Wear protective clothing and use sunscreen (SPF 30 or higher) when you are outdoors. Antibiotic medicines can cause diarrhea, which may be a sign of a new infection. If you have diarrhea that is watery or bloody, call your doctor. Do not use anti-diarrhea medicine unless your doctor tells you to. What are the possible side effects of doxycycline? Get emergency medical help if you have signs of an allergic reaction (hives, difficult breathing, swelling in your face or throat) or a severe skin reaction (fever, sore throat, burning eyes, skin pain, red or purple skin rash with blistering and peeling). Seek medical treatment if you have a serious drug reaction that can affect many parts of your body. Symptoms may include: skin rash, fever, swollen glands, flu-like symptoms, muscle aches, severe weakness, unusual bruising, or yellowing of your skin or eyes. This reaction may occur several weeks after you began using doxycycline. Call your doctor at once if you have: fever, chills, rapid breathing, headaches, rapid heart rate, skin lesion, low blood pressure; severe stomach pain, diarrhea that is watery or bloody; throat irritation, trouble swallowing; chest pain, irregular heart rhythm, feeling short of breath; little or no urination; low white blood cell counts--fever, chills, swollen glands, body aches, weakness, pale skin, easy bruising or bleeding; increased pressure inside the skull--severe headaches, ringing in your ears, dizziness, nausea, vision problems, pain behind your eyes; or signs of liver or pancreas problems--loss of appetite, upper stomach pain (that may spread to your back), tiredness, nausea or vomiting, fast heart rate, dark urine, jaundice (yellowing of the skin or eyes). Common side effects may include: headache, sinus infection, pain in the nose and throat; reversible discoloration of the surface of adult teeth; flu-like symptoms; high blood pressure; nausea, vomiting, upset stomach, loss of appetite; stomach pain or bloating; change in certain blood tests; diarrhea; skin rash or itching; darkened skin color; or vaginal itching or discharge. This is not a complete list of side effects and others may occur. Call your doctor for medical advice about side effects. You may report side effects to FDA at 8-371-QRT-7138. What other drugs will affect doxycycline? Sometimes it is not safe to use certain medicines at the same time. Some drugs can affect your blood levels of other drugs you use, which may increase side effects or make the medicines less effective. Other drugs may affect doxycycline, including prescription and zmik-gtj-joaaseb medicines, vitamins, and herbal products. Tell your doctor about all other medicines you use. Where can I get more information? Your doctor or pharmacist can provide more information about doxycycline. Remember, keep this and all other medicines out of the reach of children, never share your medicines with others, and use this medication only for the indication prescribed. Every effort has been made to ensure that the information provided by [employer] is accurate, up-to-date, and complete, but no guarantee is made to that effect. Drug information contained herein may be time sensitive. [employer] information has been compiled for use by healthcare practitioners and consumers in the [place] and therefore [employer] does not warrant that uses outside of the [place] are appropriate, unless specifically indicated otherwise. [employer] drug information does not endorse drugs, diagnose patients or recommend therapy. [employer] drug information is an informational resource designed to assist licensed healthcare practitioners in caring for their patients and/or to serve consumers viewing this service as a supplement to, and not a substitute for, the expertise, skill, knowledge and judgment of healthcare practitioners. The absence of a warning for a given drug or drug combination in no way should be construed to indicate that the drug or drug combination is safe, effective or appropriate for any given patient. [employer] does not assume any responsibility for any aspect of healthcare administered with the aid of information [employer] provides. The information contained herein is not intended to cover all possible uses, directions, precautions, warnings, drug interactions, allergic reactions, or adverse effects. If you have questions about the drugs you are taking, check with your doctor, nurse or pharmacist. Copyright 9967-1127 [employer]. Version: 25.03. Revision Date: 07/02/2024. prednisone (PRED walter Fountain What is the most important information I should know about prednisone? You should not use prednisone if you have a fungal infection anywhere in your body. You should not stop using prednisone suddenly. Follow your doctor's instructions about tapering your dose. What is prednisone? Prednisone is a steroid that reduces inflammation in the body, and also suppresses your immune system. Prednisone is used to treat many different conditions such as hormonal disorders, skin diseases, arthritis, lupus, psoriasis, allergic conditions, ulcerative colitis, Crohn's disease, eye diseases, lung diseases, asthma, tuberculosis, blood cell disorders, kidney disorders, leukemia, lymphoma, multiple sclerosis, organ transplant rejection, swelling from a brain tumor or injury. Prednisone may also be used for purposes not listed in this medication guide. What should I discuss with my healthcare provider before taking prednisone? You should not use prednisone if you are allergic to it, or if you have a fungal infection anywhere in your body. Steroid medication can weaken your immune system, making it easier for you to get an infection or worsening an infection you already have. Tell your doctor about any illness or infection you've had within the past several weeks. Tell your doctor if you have ever had: heart problems, high blood pressure, or a heart attack; glaucoma or cataracts; herpes infection of the eyes; past or present tuberculosis; a parasite infection that causes diarrhea (such as threadworms); any illness that causes diarrhea; underactive thyroid; diabetes; a stomach ulcer, diverticulitis; a colostomy or ileostomy; osteoporosis or low bone mineral density (steroid medication can increase your risk of bone loss); low levels of calcium or potassium in your blood; cirrhosis or other liver disease; mental illness or psychosis; or a muscle disorder such as myasthenia gravis. Long-term use of steroids may lead to bone loss (osteoporosis), especially if you smoke or drink alcohol, if you do not exercise, or if you do not get enough vitamin D or calcium in your diet. It is not known whether this medicine will harm an unborn baby. Tell your doctor if you are or plan to become . You should not breastfeed while using prednisone. How should I take prednisone? Follow all directions on your prescription label and read all medication guides or instruction sheets. Your doctor may occasionally change your dose. Use the medicine exactly as directed. Prednisone is taken daily or every other day, depending on the condition being treated. You may need to take the medicine at a certain time of day. Follow your doctor's instructions about when and how often to take this medicine. Take with food if prednisone upsets your stomach. Measure liquid medicine carefully. Use the dosing syringe provided, or use a medicine dose-measuring device (not a kitchen spoon). Swallow the delayed-release tablet whole and do not crush, chew, or break it. Prednisone can weaken (suppress) your immune system, and you may get an infection more easily. Call your doctor if you have signs of infection (fever, weakness, cold or flu symptoms, skin sores, diarrhea, frequent or recurring illness). If you have major surgery or a severe injury or infection, your prednisone dose needs may change. Make sure any doctor caring for you knows you are using this medicine. If you use this medicine long-term, you may need medical tests and vision exams. In case of emergency, wear or carry medical identification to let others know you use a steroid. You should not stop using prednisone suddenly. Follow your doctor's instructions about tapering your dose. Store at room temperature away from moisture, heat, and light. What happens if I miss a dose? Take the medicine as soon as you can, but skip the missed dose if it is almost time for your next dose. Do not take two doses at one time. What happens if I overdose? Seek emergency medical attention or call the Poison Help line at . High doses or long-term use of prednisone can lead to thinning skin, easy bruising, changes in body fat (especially in your face, neck, back, and waist), increased acne or facial hair, menstrual problems, impotence, or loss of interest in sex. What should I avoid while taking prednisone? Do not receive a 'live' vaccine while using prednisone. The vaccine may not work as well and may not fully protect you from disease. Live vaccines include measles, mumps, rubella (MMR), polio, rotavirus, typhoid, yellow fever, varicella (chickenpox), zoster (shingles), and nasal flu (influenza) vaccine. Avoid being near people who are sick or have infections. Call your doctor for preventive treatment if you are exposed to chickenpox or measles. These conditions can be serious or even fatal in people who are using steroid medicine. Avoid drinking alcohol. What are the possible side effects of prednisone? Get emergency medical help if you have signs of an allergic reaction: hives; difficult breathing; swelling of your face, lips, tongue, or throat. Call your doctor at once if you have: muscle pain or weakness; blurred vision, tunnel vision, eye pain, or seeing halos around lights; severe depression, changes in personality, unusual thoughts or behavior; bloody or tarry stools, coughing up blood or vomit that looks like coffee grounds; swelling, rapid weight gain, feeling short of breath; irregular heartbeats; severe headache, pounding in your neck or ears; decreased adrenal gland hormones--muscle weakness, tiredness, diarrhea, nausea, menstrual changes, skin discoloration, craving salty foods, and feeling light-headed; or low potassium level--leg cramps, constipation, irregular heartbeats, fluttering in your chest, increased thirst or urination, numbness or tingling, muscle weakness or limp feeling. Prednisone can affect growth in children. Tell your doctor if your child is not growing at a normal rate while using this medicine. Common side effects may include: weight gain (especially in your face or your upper back and torso); increased appetite; mood changes, trouble sleeping; changes in your menstrual periods; problems with memory or thought; muscle or joint pain; weakness; headache, dizziness, spinning sensation; nausea, bloating, loss of appetite; slow wound healing; or acne, increased sweating, thinning skin, bruising, pinpoint spots under your skin. This is not a complete list of side effects and others may occur. Call your doctor for medical advice about side effects. You may report side effects to FDA at 4-324-QPQ-8004. What other drugs will affect prednisone? Sometimes it is not safe to use certain medications at the same time. Some drugs can affect your blood levels of other drugs you take, which may increase side effects or make the medications less effective. Tell your doctor about all your current medicines. Many drugs can affect prednisone, especially: bupropion; cyclosporine; digoxin; ketoconazole; an antibiotic; control pills or hormone replacement therapy; a diuretic or 'water pill'; insulin or oral diabetes medicine; a blood thinner--warfarin, Coumadin, Jantoven; or NSAIDs (nonsteroidal anti-inflammatory drugs)--aspirin, ibuprofen (Advil, Motrin), naproxen (Aleve), celecoxib, diclofenac, indomethacin, meloxicam, and others. This list is not complete and many other drugs may affect prednisone. This includes prescription and fcqc-srr-[id number] medicines, vitamins, and herbal products. Not all possible drug interactions are listed here. Where can I get more information? Your pharmacist can provide more information about prednisone. Remember, keep this and all other medicines out of the reach of children, never share your medicines with others, and use this medication only for the indication prescribed. Every effort has been made to ensure that the information provided by [employer]. ('[employer]') is accurate, up-to-date, and complete, but no guarantee is made to that effect. Drug information contained herein may be time sensitive. [employer] information has been compiled for use by healthcare practitioners and consumers in the [place] and therefore [employer] does not warrant that uses outside of the [place] are appropriate, unless specifically indicated otherwise. [employer] drug information does not endorse drugs, diagnose patients or recommend therapy. [employer] drug information is an informational resource designed to assist licensed healthcare practitioners in caring for their patients and/or to serve consumers viewing this service as a supplement to, and not a substitute for, the expertise, skill, knowledge and judgment of healthcare practitioners. The absence of a warning for a given drug or drug combination in no way should be construed to indicate that the drug or drug combination is safe, effective or appropriate for any given patient. [employer] does not assume any responsibility for any aspect of healthcare administered with the aid of information [employer] provides. The information contained herein is not intended to cover all possible uses, directions, precautions, warnings, drug interactions, allergic reactions, or adverse effects. If you have questions about the drugs you are taking, check with your doctor, nurse or pharmacist. Copyright [id number] [employer]. Version: 10.. Revision Date: 06/14/2018. [employer] Medicine Reaction: Allergic You are having an allergic reaction to a medicine you have taken. This may cause an itchy rash and sometimes swelling of various parts of the body. It could also cause trouble swallowing or breathing. The rash may take a few hours or up to 2 weeks to go away. In the future, remember to tell your healthcare provider about your allergy to this medicine so that medicines of this type won't be used again. Any medicine can cause an allergic reaction. But the most allergic reactions are caused by: Penicillin and related medicines Aspirin Ibuprofen Seizure medicines Vaccines may also trigger allergies. People whose parents or siblings have allergies are at a higher risk of developing a medicine allergy. Allergy testing may sometimes be needed to figure out the cause. Symptoms may occur within minutes, hours, or even weeks after exposure to the medicine. It can be a mild or severe reaction, or potentially life threatening. Most of us think of allergic reactions when we have a rash or itchy skin. Symptoms can include: Rash, hives, redness, welts, blisters Itching, burning, stinging, pain Dry, flaky, cracking, scaly skin Belly (abdominal) cramps or nausea or stomach pain Fever. Sometimes fever is the only symptom of a drug reaction. In older adults, the risk of fever increases with the number of medicines the person takes. More severe symptoms include: Swelling of the face or lips, or drooling Trouble swallowing, feeling like your throat is closing Trouble breathing, wheezing Hoarse voice or trouble speaking Severe nausea or vomiting or diarrhea Feeling faint or lightheaded, rapid heart rate Blistering of the skin, or ulcers in the mouth or on the genitals Home care The goal of treatment is to help relieve the symptoms, and get you feeling better. Mild to medium medicine reactions usually respond quickly to antihistamines, steroids, and stopping the medicine. The rash will usually fade over several days. But it can sometimes last a couple of weeks. Over the next couple of days, there may be times when it is gets a little worse, and then better again. Here are some things to do: Throw the medicine away and don t take it again. The next reaction could be the same or worse. Call your health care provider to discuss adding this medicine allergy reaction to your electronic medical record. When getting a new medicine, always tell the healthcare provider that you are allergic to this medicine. Make certain the provider writes it down in your medical record. Avoid tight clothing and anything that heats up your skin (hot showers or baths, direct sunlight). Heat will make itching worse. An ice pack will relieve local areas of intense itching and redness. To make an ice pack, put ice cubes in a plastic bag that seals at the top. Wrap the bag in a clean, thin towel or cloth. Don t put ice directly on the skin. To help prevent an infection, don't scratch the affected area. Scratching may worsen the reaction. It can damage your skin and lead to an infection. Always check the affected site for signs of an infection. Your provider may give you a prescription antihistamine. If you are not given a prescription antihistamine, oral diphenhydramine is an oybl-icj-enayjkt antihistamine available at pharmacies and grocery stores. This may be used to reduce itching if large areas of the skin are involved. This antihistamine may make you sleepy, so be careful using it in the daytime or when going to school, working, or driving. Note: Don t use diphenhydramine if you have glaucoma or if you are a man with trouble urinating due to an enlarged prostate. There are other antihistamines that cause less drowsiness and are a good choice for daytime use. Ask your pharmacist or health care provider for suggestions. Don't use diphenhydramine cream on your skin. It can cause a further skin reaction for some people. Contact your healthcare provider and ask what can be used on the affected area to help decrease the itching. Follow-up care Follow up with your healthcare provider, or as advised if your symptoms do not continue to improve or they get worse. Call 911 Call 911 if any of these occur: Shortness of breath Cool, moist, pale skin Swelling in the face, eyelids, mouth, tongue, or lips Drooling Trouble breathing or swallowing, wheezing New or worsening swelling in the mouth, throat, or tongue Hoarse voice or trouble speaking Fainting or loss of consciousness Rapid heart rate Feeling of dizziness or weakness or a sudden drop in blood pressure Feeling of doom Feeling lightheaded Severe nausea, vomiting, or diarrhea When to seek medical advice Call your healthcare provider right away if any of these occur: Continuing or recurring symptoms Nausea, abdominal cramps or stomach pain Spreading areas of itching, redness or swelling Blistering of the skin or sores or ulcers in the mouth or on the genitals Signs of infection: oSpreading redness oIncreased pain or swelling oFever of 100.4 F (38 C) or above lasting for 24 to 48 hours, or as directed by your provider oFluid or colored drainage from the affected area [id number] [employer]. [address] [place] [address]. All rights reserved. This information is not intended as a substitute for professional medical care. Always follow your healthcare professional's instructions. Additional Information VACCINATE! IT SAVES LIVES! Members of the community who have not yet received the COVID-19 vaccine and would like to receive it can visit one of [facility] vaccine clinics. There are many vaccine clinic locations within the [facility]. For locations and available times, please visit [email or web address] It is important to note that some COVID mobile vaccine clinics are held outdoors and may be canceled in rainy or stormy conditions. To learn more about pediatric vaccinations (ages 5-11), we invite you to visit the [facility] webpage. [email or web address] To learn more about the COVID-19 vaccine, we invite you to visit the CDC website for a list of frequently asked questions. https://www.cdc.gov/coronavirus/ 2019-ncov/vaccines/faq.html [facility] Patient Portal Access Instructions: Stay connected with your healthcare team and access your personal medical information anytime with the [facility] Patient Portal. If you would like a full copy of your medical records please contact the [facility] Medical Records Department Monday through Monday between 8a.m. and 4:30p.m. Please follow the directions below to access the portal: 1.Access the email account you provided upon registration to the [facility].2.Look for an invitation email from [facility].3.Open the email and access the invitation link: Accept Invitation to [facility]4.Fill in the required hudson to create your account. Sign into www.[facility] with your username and password that you created in the above steps to stay up to date. You can then view a summary of results, a summary of your visits, and the ability to download your summaries to your computer or send the information securely to a physician. Remember that your healthcare information is confidential, so carefully consider who you will allow to register on the [facility] Patient Portal for access to your information. You can also access the [facility] Patient Portal on the [employer] merlene. Simply click on Health Records under Health Data and then click on the [employer] logo. HOW TO SAFELY DISPOSE OF PRESCRIPTION MEDICATIONS Please use one of the following methods to safely dispose of your unused medications. 1.Use a drug disposal kit: the drug disposal pouch allows you to safely discard your old and unused drugs. Ask your nurse to give you one when you are discharged.2.Visit a local take-back location: Many local pharmacies and police departments have programs that collect old and unwanted prescription drugs. Call your local pharmacy or go to http://Parkinsor.UpRace/4Y1Yc2q to find one close to you.3.Make use of household items: Use cat litter or old coffee grounds to dispose medications if other options are not available. Mix your drugs with these household products, seal them in an airtight container and throw it into the garbage. Call [facility]: [phone] to be sure your drugs can be disposed of in this way. Some medicines may require a different approach.4.Never flush your medications down the toilet. IF YOU HAVE BEEN PRESCRIBED AN OPIOIDS FOR PAIN If you have been prescribed an opioid (such as hydrocodone, oxycodone or morphine), it is critical to understand the possible side effects and risks of opioid pain medications. Even when taken as directed, opioids can have several side effects including: Tolerance, meaning you might need to take more of a medication for the same pain relief. Nausea, vomiting and/or constipation. Sleepiness, dizziness, dry mouth, confusion, depression or itching. Physical dependence, meaning you have withdrawal symptoms when a medication is stopped ? this can develop within a few days. KNOW YOUR RESPONSIBILITIES It is important to know exactly how much and how often to take the opioid pain medications you are prescribed. Never take opioids in higher amounts or more often than prescribed. Do not combine opioids with alcohol or other drugs that cause drowsiness, such as benzodiazepines, also known as benzos, including diazepam and alprazolam, muscle relaxants or sleep aids. Never sell or share prescription opioids. This is illegal. Store opioids in a secure place and out of reach of others (including children, family, friends and visitors). The last page(s) of this document has been signed and retained as a CHART COPY Signatures Patient Education Materials Allergic Reaction, Drug Medication Leaflets doxycycline (oral/injection), prednisone My discharge plan and instructions have been reviewed and explained to me and I,SEUN VELASCO understand my current condition and have read and understand these discharge instructions. I have received a written copy of the plan/instructions. If I have questions, I am aware that I should contact my doctor. 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 MICRO - Microbiology PROCEDURE: Culture Wound Deep Aerobe/Anaerobe w Gram Stain [*1] SOURCE: Wound (deep) BODY SITE: Head COLLECTED DATE/TIME: 12/08/2022 06:13 EDT RECEIVED DATE/TIME: 12/08/2022 07:50 EDT START DATE/TIME: 12/08/2022 07:50 EDT FREE TEXT SOURCE: posterior head abscess culture FINAL REPORTS Final Report [] Verified Date/Time/Personnel: 12/13/2022 12:37 EDT Light Methicillin-Resistant Staphylococcus aureus Light normal skin eric present. Sensitivity testing not indicated. No anaerobes isolated at 5 days. PRELIMINARY REPORTS Preliminary Report [] Verified Date/Time/Personnel: 12/11/2022 08:47 EDT Light Methicillin-Resistant Staphylococcus aureus Light normal skin eric present. Sensitivity testing not indicated. No anaerobes isolated to date. Preliminary Report [] Verified Date/Time/Personnel: 12/10/2022 11:10 EDT Light Staphylococcus aureus MILI to follow Light normal skin eric present. Sensitivity testing not indicated. No anaerobes isolated to date. Preliminary Report [] Verified Date/Time/Personnel: 12/09/2022 11:50 EDT Culture results pending. STAINS GS [] Verified Date/Time/Personnel: 12/08/2022 11:02 EDT Rare Gram Positive Cocci SUSCEPTIBILITY RESULTS Methicillin-Resistant Staphylococcus aureus Antibiotic MILI Dilut MILI Inter Ampicillin/ <=8/4 Resistant Sulbactam Azithromycin >4 Resistant Cefepime 8 Resistant Cefotaxime <=8 Resistant Ceftaroline <=0.5 Susceptible Ceftriaxone 8 Resistant Ciprofloxacin >2 Resistant Clindamycin >4 Resistant Daptomycin <=0.5 Susceptible Erythromycin >4 Resistant Imipenem <=4 Resistant Levofloxacin 4 Intermediate Linezolid <=1 Susceptible Meropenem <=2 Resistant Oxacillin >2 Resistant MICRO - Microbiology SUSCEPTIBILITY RESULTS Methicillin-Resistant Staphylococcus aureus Antibiotic MILI Dilut MILI Inter Penicillin 0.5 Resistant Rifampin <=1 Susceptible Tetracycline >8 Resistant Trimethoprim/ <=0.5/9.5 Susceptible Sulfa Vancomycin 1 Susceptible Performing Locations *1: This test was performed at: [address], [address] [place] [address] 12-09-2022 Note . MICRO - Microbiology PROCEDURE: Blood Culture (bacterial) [*1] SOURCE: Blood BODY SITE: COLLECTED DATE/TIME: 12/04/2022 10:58 EDT RECEIVED DATE/TIME: 12/04/2022 17:17 EDT START DATE/TIME: 12/04/2022 17:17 EDT FREE TEXT SOURCE: FINAL REPORTS Final Report [] Verified Date/Time/Personnel: 12/09/2022 17:59 EDT Blood Culture: No Growth at 5 days. PRELIMINARY REPORTS Preliminary Report [] Verified Date/Time/Personnel: 12/04/2022 17:59 EDT Culture has been received in lab and is no growth to date. Routine cultures are held for 5 days. Performing Locations *1: This test was performed at: [address], [address] [place] [address] 12-09-2022 Note . MICRO - Microbiology PROCEDURE: Blood Culture (bacterial) [*1] SOURCE: Blood BODY SITE: COLLECTED DATE/TIME: 12/04/2022 10:58 EDT RECEIVED DATE/TIME: 12/04/2022 17:17 EDT START DATE/TIME: 12/04/2022 17:17 EDT FREE TEXT SOURCE: FINAL REPORTS Final Report [] Verified Date/Time/Personnel: 12/09/2022 17:59 EDT Blood Culture: No Growth at 5 days. PRELIMINARY REPORTS Preliminary Report [] Verified Date/Time/Personnel: 12/04/2022 17:59 EDT Culture has been received in lab and is no growth to date. Routine cultures are held for 5 days. Performing Locations *1: This test was performed at: [facility], [address] [place] [address], [id number]- , [facility] [place] 12-08-2022 Discharge summary Date of Service 12/08/2022 Discharge Diagnosis Cellulitis of neck (L03.221 - ICD-10-CM) Body mass index [BMI] 50.0-59.9, adult (Z68.43 - ICD-10-CM) Gastro-esophageal reflux disease without esophagitis (K21.9 - ICD-10-CM) Obstructive sleep apnea (adult) (pediatric) (G47.33 - ICD-10-CM) Morbid (severe) obesity due to excess calories (E66.01 - ICD-10-CM) Personal history of transient ischemic attack (TIA), and cerebral infarction without residual deficits (Z86.73 - ICD-10-CM) Essential (primary) hypertension (I10 - ICD-10-CM) Type 2 diabetes mellitus with hyperglycemia (E11.65 - ICD-10-CM) [employer] (current) use of insulin (Z79.4 - ICD-10-CM) Chronic obstructive pulmonary disease, unspecified (J44.9 - ICD-10-CM) Unspecified asthma, uncomplicated (J45.909 - ICD-10-CM) Type 2 diabetes mellitus with diabetic polyneuropathy (E11.42 - ICD-10-CM) Hyperlipidemia, unspecified (E78.5 - ICD-10-CM) Elevated white blood cell count, unspecified (D72.829 - ICD-10-CM) Follicular disorder, unspecified (L73.9 - ICD-10-CM) DM type 2, goal HbA1c < 7.5% (E11.9 - ICD-10-CM) HTN, goal below 140/90 (I10 - ICD-10-CM) Ordered: Norvasc 5 mg oral tablet; Dose : 5 mg = 1 tab(s), Oral, BID, # 60 tab(s), 0 Refill(s), Pharmacy: [facility], HTN, goal below 140/90, 167.6, cm, 12/04/22 17:22:00 EDT, Height, kg, 12/04/22 17:22:00 EDT, Dosing Weight Hyperlipidemia LDL goal <100 (E78.5 - ICD-10-CM) Neck pain (M54.2 - ICD-10-CM) Ordered: oxyCODONE 5 mg oral tablet ( IMMEDIATE release ); Dose : 5 mg = 1 tab(s), Oral, q6hr, PRN Pain, scale 4-10, X 3 day(s), # 12 tab(s), 0 Refill(s), 12/11/22 10:52:00 EDT, Pharmacy: [facility], Neck pain, 167.6, cm, 12/04/22 17:22:00 EDT, Height, 152.6, kg, 12/04/22 17:22:00 EDT, Dosing... Additional Orders: Other status: Discharge,12/08/22 11:27:00 EDT, Discharged to: Home(Complete) Ordered: Discharge Activity,Resume your pre-hospitalization activity, 12/08/22 11:27:00 EDT Ordered: Discharge Diet,No changes were made to your diet during your hospital stay. Please resume your pre hospitalization diet on discharge., 12/08/22 11:27:00 EDT Ordered: Discharge Wound Care,Dressing Type: Open to Air, 12/08/22 11:27:00 EDT Discontinued: NovoLOG 100 units/mL injectable solution,Dose : 10 unit(s) =, Subcutaneous, BID, # 10 mL, 0 Refill(s) Ordered: Tylenol 325 mg oral capsule,Dose : 650 mg =, Oral, q4h, PRN Pain, scale 1-3, 0 Refill(s) Ordered: chlorhexidine 4% topical soap,Dose = 1 merlene, Topical, Daily, # 120 mL, 0 Refill(s), Pharmacy: [facility], 167.6, cm, 12/04/22 17:22:00 EDT, Height, kg, 12/04/22 17:22:00 EDT, Dosing Weight Ordered: clindamycin 300 mg oral capsule,Dose : 300 mg = 1 cap(s), Oral, q6h, X 10 day(s), # 40 cap(s), 0 Refill(s), 12/18/22 11:14:00 EDT, Pharmacy: [facility], 167.6, cm, 12/04/22 17:22:00 EDT, Height, 152.6, kg, 12/04/22 17:22:00 EDT, Dosing Weight Ordered: mupirocin 2% topical cream,Apply 1 merlene, Topical, Daily, X 10 day(s), # 15 gram(s), 0 Refill(s), Pharmacy: [facility], 167.6, cm, 12/04/22 17:22:00 EDT, Height, 152.6, kg, 12/04/22 17:22:00 EDT, Dosing Weight End of Orders Hospital Course Patient is a 52-year-old male with past medical history significant for morbid obesity, obstructive sleep apnea with CPAP at night, GERD, tobacco use, TIA, hypertension, type 2 diabetes mellitus (on insulin at home), tobacco use. . He originally presented to [facility] emergency department on 12/04/2022 with complaints of posterior neck abscess and cellulitis. He was evaluated by his primary care physician and placed on doxycycline on 12/01/2022, symptoms did not improve and the patient presented to the ER. Patient was then transferred to the [facility] for further evaluation and ENT evaluation. According to the ENT progress note, area appears cellulitic than suppurative and recommend warm compresses to the area to encourage drainage. Continue with dressing changes with chlorhexidine wash and topical Bactroban twice daily. Patient will be sent home with a total of 10 days of clindamycin. Instructed to follow-up with Dr. Burrows. Patient was also noted to have hypertension, increased regimen to amlodipine 5 mg twice daily. Patient states he does no longer take valsartan at home. Patient's blood sugars also noted to be elevated, encouraged to follow-up with stone finisher. Patient encouraged to follow-up with his primary care doctor. At this time patient is stable for discharge On exam today, patient dangling at the bedside, and multiple kids at the bedside. He states that he is eager to discharge home and is feeling great. Denies shortness of breath, chest pain, nausea, vomiting. Plan of care discussed with patient and at the bedside. All questions answered. Patient verbalized understanding is agreeable to plan of care. Discussed with my collaborating physician Dr. Velazquez. This dictation was performed using voice recognition software and may include grammatical and/or spelling errors. Allergies Bee Stings (Unknown) Byetta Prefilled Pen ([place] sick) SMZ-TMP DS (Rash) amoxicillin (amoxicillin) metFORMIN (Diarrhea) penicillin (Drowsiness) Consults Consult to Physician - Ordered -- 12/04/22 18:21:00 EDT, STEPHEN MILLIGAN MD, Routine, Neck abscesses Consult to Physician - Ordered -- 12/07/22 10:55:00 EDT, LUIS DANIEL BURROWS MD, Routine, Evaluate for I&D of neck infection/wound Physical Exam Vitals and Measurements T: 36.7 C (Oral) TMIN: 36.7 C (Oral) TMAX: 37 C (Oral) HR: 80 RR: 20 BP: 186/102 SpO2: 97% Weight Dosing Weight: 152.6 kg (12/04/22) General: No acute distress. Alert and Appropriate Skin: No rash. Warm, Dry, Intact HEENT: Posterior head: [place], slight edema, no drainage, open to air Lungs: Bilaterally diminished breath sounds with no crepitation or wheeze. Unlabored Cardiovascular: Heart is regular rhythm, S1S2, No extra-audible heart tones Abdomen: Abdomen is round, soft, nontender. Bowel sounds positive all four quadrants. Extremities: No clubbing, cyanosis or edema. Peripheral pulses palpable. No calf tenderness. Adequate peripheral circulation. Neurological: The patient is awake, oriented to time, people and place. Following simple commands, moving all extremities. Code Status No qualifying data available. Admission Date 12/04/2022 Discharge Date 12/08/2022 Patient Instructions You were found to have neck cellulitis -Apply warm compresses 15 min on/15 min off to your posterior neck until you see Dr. Burrows in the office -Continue with chlorhexidine wash daily at night and topical Bactroban twice daily as instructed by Dr. Burrows -If the area drains spontaneously and continues to improve you may cancel the appointment but you should be sure to follow up with your family practice physician -Continue 10 more days of antibiotics You were also found to have high blood pressure -Please increase your amlodipine to 5 mg twice daily -Follow-up with primary care provider regarding these changes Your blood sugars were noted to be elevated -Please follow-up with your stone finisher Thanks for allowing us to participate in your care! Medications New Prescription acetaminophen (Tylenol 325 mg oral capsule)650 Milligram by mouth every 4 hours as needed Pain, scale 1-3. chlorhexidine topical (chlorhexidine 4% topical soap)1 application Topical every day for 5 Days. Refills: 0. clindamycin (clindamycin 300 mg oral capsule)1 cap by mouth every 6 hours for 10 Days. Refills: 0. mupirocin topical (mupirocin 2% topical cream)1 application Topical every day for 10 Days. Refills: 0. oxyCODONE (oxyCODONE 5 mg oral tablet ( IMMEDIATE release ))1 tab(s) by mouth every 6 hours as needed Pain, scale 4-10 for 3 Days. Refills: 0. Changed amLODIPine (Norvasc 5 mg oral tablet)1 tab(s) by mouth two (2) times a day for 30 Days. Refills: 0. insulin aspart (Novolog) (NovoLOG FlexPen 100 units/mL injectable solution)28 unit(s) Subcutaneous three (3) times a day before meals for 90 Days. QS for 30 day supply. Refills: 1. Unchanged albuterol (ProAir HFA MDI (90 mcg/inh) inhalation aerosol)2 puff(s) by inhalation every 6 hours as needed as needed for wheezing for 30 Days. Refills: 6. celecoxib (CeleBREX 200 mg oral capsule)1 cap by mouth once a day. Refills: 1. cholecalciferol (cholecalciferol 1250 mcg (50,000 intl units) oral capsule)1 cap by mouth every week for 90 Days. Refills: 1. clopidogrel (clopidogrel 75 mg oral tablet)1 tab(s) by mouth once a day. TAKE 1 TABLET BY MOUTH DAILY. Refills: 1. DME (Blood Glucose Test Strips)1 bottle of 100. Refills: 11. DME (DME MISCellaneous)Glucometer Test Kit-One that insurance will cover. Refills: 0. DME (DME MISCellaneous)PT. REQUESTING 2 PAIR OF COMPRESSION SOCKS. 30/40 COMPRESSION. Refills: 0. DME (DME MISCellaneous)Compression socks, knee high with compression 30-40. Refills: 0. DME (Lancets)qs 1 month supply. Refills: 11. DME (Pen needles 8 mm)31G/8mm pen needles, four pen needles per day secondary to the quick acting & bolus insulins. Quantiy 360 pen needles based on 90 day Rx Refill: 3. Refills: 3. EPINEPHrine (EpiPen 2-Jamal 0.3 mg injectable kit)0.3 Milligram Subcutaneous As Directed as needed Allergic reaction. Refills: 1. ferrous sulfate (ferrous sulfate 325 mg (65 mg elemental iron) oral tablet)1 tab(s) by mouth once a day for 90 Days. Refills: 1. furosemide (Lasix 20 mg oral tablet)1 tab(s) by mouth once a day for 30 Days. Refills: 1. gabapentin (gabapentin 400 mg oral capsule)1 cap by mouth three (3) times a day. guaiFENesin (Mucinex 600 mg oral tablet, extended release)1 tab(s) by mouth every 12 hours. Refills: 5. insulin glargine (Lantus Solostar Pen 100 units/mL 3 mL Pen)50 unit(s) Subcutaneous two (2) times a day for 90 Days. QS for 90 day supply. Refills: 1. levocetirizine (levocetirizine 5 mg oral tablet)1 tab(s) by mouth daily at bedtime. Refills: 1. liraglutide (Victoza 18 mg/3 mL subcutaneous Pen)1.8 Milligram Subcutaneous once a day for 90 Days. Refills: 1. olodaterol-tiotropium (Stiolto Respimat 60 ACT 2.5 mcg-2.5 mcg/inh inhalation aerosol)2 puff(s) by inhalation every 24 hours. Refills: 5. pioglitazone (Actos 45 mg oral tablet)1 tab(s) by mouth once a day. Refills: 1. rosuvastatin (rosuvastatin 40 mg oral tablet)1 tab(s) by mouth once a day for 90 Days. Refills: 1. Discontinued doxycycline (doxycycline hyclate 100 mg oral capsule)1 cap by mouth two (2) times a day for 10 Days. Refills: 0. valsartan (Diovan 320 mg oral tablet)1 tab(s) by mouth once a day. Refills: 1. Follow Up Follow Up with LUIS DANIEL BURROWS MD, [facility], Plastic and Reconstructive When In 8 days 12/15/2022 EDT Why: Please call the office for an appointment. Where: [address] [place] [address]- Follow Up with DAVID CUMMINS APRN, CNP When Within 1-2 days Why: Please call the office to schedule a follow up appointment. Where: [address] [place] [address]- Follow Up Appointments No qualifying data available. Follow Up Labs/Studies Discharge Labs No Follow-up Labs Discharge Studies No Follow-up Studies Discharge Diet Discharge Diet - Ordered -- No changes were made to your diet during your hospital stay. Please resume your pre hospitalization diet on discharge., 12/08/22 11:27:00 EDT Discharge Activity Discharge Activity - Ordered -- Resume your pre-hospitalization activity, 12/08/22 11:27:00 EDT Condition on Discharge Stable Discharge Disposition home Information Provided To Patient, and children at the bedside Time Spent I have spent a total of 32 minutes reviewing the patient's diagnostic labs and testing, seeing and examining the patient, and documenting in the medical record. Please see assessment for further detail. Digitally Signed by AUSTEN CRUM on 12/08/2022 01:55 PM [facility] 12-08-2022 Hospital Discharge instructions Patient Education 12/08/2022 11:43:09 Acute Pain, Adult Acute Pain, Adult Acute pain is a type of sudden pain that may last for just a few days or for as long as six months. It is often related to an illness, injury, or medical procedure. Acute pain may be mild, moderate, or severe. Pain can make it hard for you to do your normal, daily activities. It can cause anxiety and lead to other problems if it is left untreated. Treatment depends on the cause and severity of your pain. Acute pain usually goes away once your injury has healed or you are no longer ill. Follow these instructions at home: Medicines Take wozt-wio-hcvlqrg and prescription medicines only as told by your health care provider. Take the lowest dose of medicine for the shortest amount of time needed to relieve the pain. If you are taking prescription pain medicine: ?Do not stop taking the medicine suddenly. Talk to your health care provider about how and when to discontinue prescription medicine. ?Do not take more pills than told by your health care provider even if your pain is severe. ?Do not take other ggsf-amc-xopdfst pain medicines in addition to prescription pain medicine unless told by your health care provider. ?Ask your health care provider if the medicine requires you to avoid driving or using heavy machinery. ?Ask your health care provider if the medicine can cause constipation. You may need to take these actions to prevent or treat constipation: ?Drink enough fluid to keep your urine pale yellow. ?Eat foods that are high in fiber, such as beans, whole grains, and fresh fruits and vegetables. ?Take msea-nnx-hskxweq or prescription medicines. ?Limit foods that are high in fat and processed sugars, such as fried or sweet foods. Managing pain, stiffness, and swelling If directed, put ice on the affected area. To do this: Put ice in a plastic bag. Place a towel between your skin and the bag. Leave the ice on for 20 minutes, 2 3 times a day. If directed, apply heat to the affected area as often as told by your health care provider. Use the heat source that your health care provider recommends, such as a moist heat pack or a heating pad. Place a towel between your skin and the heat source. Leave the heat on for 20 30 minutes. Remove the heat if your skin turns bright red. This is especially important if you are unable to feel pain, heat, or cold. You may have a greater risk of getting burned. Activity Rest as told by your health care provider. Return to your normal activities as told by your health care provider. Ask your health care provider what activities are safe for you. General instructions Check your pain level as told by your health care provider. Ask your health care provider if other strategies such as distraction, relaxation, or physical therapies can help your pain. Keep all follow-up visits as told by your health care provider. This is important. Contact a health care provider if: Your pain is not controlled by medicine. Your pain does not improve or gets worse. You have side effects from pain medicines, such as vomiting or confusion. Get help right away if you: Have severe pain. Have trouble breathing. Lose consciousness. Have chest pain or pressure that lasts for more than a few minutes, or if you have other symptoms along with chest pain, including if you: ?Have pain or discomfort in one or both arms, your back, neck, jaw, or stomach. ?Have shortness of breath. ?Break out in a cold sweat. ?Feel nauseous. ?Become light-headed. These symptoms may represent a serious problem that is an emergency. Do not wait to see if the symptoms will go away. Get medical help right away. Call your local emergency services (911 in the [place] Do not drive yourself to the hospital. Summary Acute pain may be mild, moderate, or severe. It usually goes away once your injury has healed or you are no longer ill. Take ccgt-jhs-fqgzmjw and prescription medicines only as told by your health care provider. Ask your health care provider if the medicine prescribed to you can cause constipation. Contact a health care provider if your pain is not controlled by medicine. This information is not intended to replace advice given to you by your health care provider. Make sure you discuss any questions you have with your health care provider. Document Released: 03/20/2016 Document Revised: 07/22/2019 Document Reviewed: 07/22/2019 Emergent Health Patient Education 2020 [employer]. 12/08/2022 11:42:25 Diabetes Basics Diabetes Basics Diabetes (diabetes mellitus) is a long-term (chronic) disease. It occurs when the body does not properly use sugar (glucose) that is released from food after you eat. Diabetes may be caused by one or both of these problems: Your pancreas does not make enough of a hormone called insulin. Your body does not react in a normal way to insulin that it makes. Insulin lets sugars (glucose) go into cells in your body. This gives you energy. If you have diabetes, sugars cannot get into cells. This causes high blood sugar (hyperglycemia). Follow these instructions at home: How is diabetes treated? You may need to take insulin or other diabetes medicines daily to keep your blood sugar in balance. Take your diabetes medicines every day as told by your doctor. List your diabetes medicines here: Diabetes medicines Name of medicine: ?Amount (dose): Time (a.m./p.m.): Notes: ___ Name of medicine: ?Amount (dose): Time (a.m./p.m.): Notes: ___ Name of medicine: ?Amount (dose): Time (a.m./p.m.): Notes: ___ If you use insulin, you will learn how to give yourself insulin by injection. You may need to adjust the amount based on the food that you eat. List the types of insulin you use here: Insulin Insulin type: ?Amount (dose): Time (a.m./p.m.): Notes: ___ Insulin type: ?Amount (dose): Time (a.m./p.m.): Notes: ___ Insulin type: ?Amount (dose): Time (a.m./p.m.): Notes: ___ Insulin type: ?Amount (dose): Time (a.m./p.m.): Notes: ___ Insulin type: ?Amount (dose): Time (a.m./p.m.): Notes: ___ How do I manage my blood sugar? Check your blood sugar levels using a blood glucose monitor as directed by your doctor. Your doctor will set treatment goals for you. Generally, you should have these blood sugar levels: Before meals (preprandial): 80 130 mg/dL (4.4 7.2 mmol/L). After meals (postprandial): below 180 mg/dL (10 mmol/L). A1c level: less than 7%. Write down the times that you will check your blood sugar levels: Blood sugar checks Time: Notes: ___ Time: Notes: ___ Time: Notes: ___ Time: Notes: ___ Time: Notes: ___ Time: Notes: ___ What do I need to know about low blood sugar? Low blood sugar is called hypoglycemia. This is when blood sugar is at or below 70 mg/dL (3.9 mmol/L). Symptoms may include: Feeling: ?Hungry. ?Worried or nervous (anxious). ?Sweaty and clammy. ?Confused. ?Dizzy. ?Sleepy. ?Sick to your stomach (nauseous). Having: ?A fast heartbeat. ?A headache. ?A change in your vision. ?Tingling or no feeling (numbness) around the mouth, lips, or tongue. ?Jerky movements that you cannot control (seizure). Having trouble with: ?Moving (coordination). ?Sleeping. ?Passing out (fainting). ?Getting upset easily (irritability). Treating low blood sugar To treat low blood sugar, eat or drink something sugary right away. If you can think clearly and swallow safely, follow the 15:15 rule: Take 15 grams of a fast-acting carb (carbohydrate). Talk with your doctor about how much you should take. Some fast-acting carbs are: ?Sugar tablets (glucose pills). Take 3 4 glucose pills. ?6 8 pieces of hard candy. ?4 6 oz (120 150 mL) of fruit juice. ?4 6 oz (120 150 mL) of regular (not diet) soda. ?1 Tbsp (15 mL) honey or sugar. Check your blood sugar 15 minutes after you take the carb. If your blood sugar is still at or below 70 mg/dL (3.9 mmol/L), take 15 grams of a carb again. If your blood sugar does not go above 70 mg/dL (3.9 mmol/L) after 3 tries, get help right away. After your blood sugar goes back to normal, eat a meal or a snack within 1 hour. Treating very low blood sugar If your blood sugar is at or below 54 mg/dL (3 mmol/L), you have very low blood sugar (severe hypoglycemia). This is an emergency. Do not wait to see if the symptoms will go away. Get medical help right away. Call your local emergency services (911 in the [place] Do not drive yourself to the hospital. Questions to ask your health care provider Do I need to meet with a campus dean? What equipment will I need to care for myself at home? What diabetes medicines do I need? When should I take them? How often do I need to check my blood sugar? What number can I call if I have questions? When is my next doctor's visit? Where can I find a support group for people with diabetes? Where to find more information [employer]: www.diabetes.org [employer] Diabetes Educators: www.diabeteseducator.org/patient -resources Contact a doctor if: Your blood sugar is at or above 240 mg/dL (13.3 mmol/L) for 2 days in a row. You have been sick or have had a fever for 2 days or more, and you are not getting better. You have any of these problems for more than 6 hours: ?You cannot eat or drink. ?You feel sick to your stomach (nauseous). ?You throw up (vomit). ?You have watery poop (diarrhea). Get help right away if: Your blood sugar is lower than 54 mg/dL (3 mmol/L). You get confused. You have trouble: ?Thinking clearly. ?Breathing. Summary Diabetes (diabetes mellitus) is a long-term (chronic) disease. It occurs when the body does not properly use sugar (glucose) that is released from food after digestion. Take insulin and diabetes medicines as told. Check your blood sugar every day, as often as told. Keep all follow-up visits as told by your doctor. This is important. This information is not intended to replace advice given to you by your health care provider. Make sure you discuss any questions you have with your health care provider. Document Released: 06/08/2018 Document Revised: 04/26/2019 Document Reviewed: 06/08/2018 Emergent Health Patient Education 2020 [employer]. Follow Up Care 12/04/2022 14:32:51 With:LUIS DANIEL BURROWS MD, [facility] Address: [address] [place] [id number]- When:12/15/2022 Comments:Please call the office for an appointment. With:DAVID CUMMINS APRN, CNP Address: [address] [place] [address] [place] [address]- When:1-2 days Comments:Please call the office to schedule a follow up appointment. [facility] 12-08-2022 Note Discharge Instructions Thank you for allowing [facility] to assist you with your healthcare needs. The following is important discharge information regarding your hospital visit. Your Care Team DAVID CUMMINS APRN - EMPLOYMENT TRAINING SPECIALIST Your Diagnosis DM type 2, goal HbA1c < 7.5% HTN, goal below 140/90 Hyperlipidemia LDL goal <100 Neck pain What to do next Instructions From Your Doctor You were found to have neck cellulitis -Apply warm compresses 15 min on/15 min off to your posterior neck until you see Dr. Burrows in the office -Continue with chlorhexidine wash daily at night and topical Bactroban twice daily as instructed by Dr. Burrows -If the area drains spontaneously and continues to improve you may cancel the appointment but you should be sure to follow up with your family practice physician -Continue 10 more days of antibiotics You were also found to have high blood pressure -Please increase your amlodipine to 5 mg twice daily -Follow-up with primary care provider regarding these changes Your blood sugars were noted to be elevated -Please follow-up with your stone finisher Thanks for allowing us to participate in your care! Scheduled Follow-Up Appointments Appointment Type When With Where Contact InformationPC [facility] Follow Up 01/26/2023 02:00 PM EST DAVID CUMMINS PRESSER ALL AROUND - EMPLOYMENT TRAINING SPECIALIST [facility] Follow Up Appointments Follow Up with LUIS DANIEL BURROWS MD, [facility], [facility] When In 8 days 12/15/2022 EDT Why: Please call the office for an appointment. Where: [address] [facility] [address] [place] [address]- Follow Up with DAVID CUMMINS PRESSER ALL AROUND - EMPLOYMENT TRAINING SPECIALIST When Within 1-2 days Why: Please call the office to schedule a follow up appointment. Where: [address] [place] [address]- The Following Activity and Diet Have Been Ordered for You Discharge Activity - Ordered -- Resume your pre-hospitalization activity, 12/08/22 11:27:00 EDT Discharge Diet - Ordered -- No changes were made to your diet during your hospital stay. Please resume your pre hospitalization diet on discharge., 12/08/22 11:27:00 EDT The Following Equipment Has Been Ordered for You Discharge Home Equipment Discharge Wound Care - Ordered -- Dressing Type: Open to Air, 12/08/22 11:27:00 EDT The Following Treatments Have Been Ordered for You Discharge Labs No qualifying data available. Discharge Radiology No qualifying data available. Other Therapies No qualifying data available. Post Acute Orders No qualifying data available. Someone Will Contact You Regarding These Home Health Referrals No home referrals have been ordered for you. No one will call you. Allergies Bee Stings (Unknown) Byetta Prefilled Pen ([place] sick) [id number] DS (Rash) amoxicillin (amoxicillin) metFORMIN (Diarrhea) penicillin (Drowsiness) Medications Please ask your primary doctor or pharmacist before taking any other medication not listed, including over the counter drugs, herbal medications, vitamins and or supplements as they may interact with your home medications. What How Much When Why Instructions Last Dose New acetaminophen (Tylenol 325 mg oral capsule) 650 Milligram by mouth Every 4 hours as needed for Pain, scale 1-3 New chlorhexidine topical (chlorhexidine 4% topical soap) 1 application Topical Every day Duration: 5 Days Pickup at [facility] New clindamycin (clindamycin 300 mg oral capsule) 1 cap by mouth Every 6 hours Duration: 10 Days Pickup at [facility] New mupirocin topical (mupirocin 2% topical cream) 1 application Topical Every day Duration: 10 Days Pickup at [facility] New oxyCODONE (oxyCODONE 5 mg oral tablet ( IMMEDIATE release )) 1 tab(s) by mouth Every 6 hours as needed for Pain, scale 4-10 Neck pain Duration: 3 Days Pickup at [facility] Changed amLODIPine (Norvasc 5 mg oral tablet) 1 tab(s) by mouth Two (2) times a day HTN, goal below 140/90 Duration: 30 Days Pickup at [facility] Changed insulin aspart (Novolog) (NovoLOG FlexPen 100 units/ mL injectable solution) 28 unit(s) Subcutaneous Three (3) times a day before meals Duration: 90 Days QS for 30 day supply Unchanged albuterol (ProAir HFA MDI (90 mcg/ inh) inhalation aerosol) 2 puff(s) by inhalation Every 6 hours as needed for as needed for wheezing Asthma Duration: 30 Days Unchanged celecoxib (CeleBREX 200 mg oral capsule) 1 cap by mouth Once a day Pain of right knee after injury Unchanged cholecalciferol (cholecalciferol 1250 mcg (50,000 intl units) oral capsule) 1 cap by mouth Every week Vitamin D deficiency Duration: 90 Days Unchanged clopidogrel (clopidogrel 75 mg oral tablet) 1 tab(s) by mouth Once a day TAKE 1 TABLET BY MOUTH DAILY Unchanged DME (Blood Glucose Test Strips) See instructions 1 bottle of 100 Unchanged DME (DME MISCellaneous) See instructions Glucometer Test Kit-One that insurance will cover Unchanged DME (DME MISCellaneous) See instructions DM type 2, goal HbA1c < 7.5% PT. REQUESTING 2 PAIR OF COMPRESSION SOCKS. 30/ 40 COMPRESSION Unchanged DME (DME MISCellaneous) See instructions Chronic venous insufficiency Compression socks, knee high with compression 30-40 Unchanged DME (Lancets) See instructions qs 1 month supply Unchanged DME (Pen needles 8 mm) See instructions DM type 2, goal HbA1c < 7.5% 31G/ 8mm pen needles, four pen needles per day secondary to the quick acting & bolus insulins. Quantiy 360 pen needles based on 90 day Rx Refill: 3 Unchanged EPINEPHrine (EpiPen 2-Jamal 0.3 mg injectable kit) 0.3 Milligram Subcutaneous As Directed as needed for Allergic reaction Unchanged ferrous sulfate (ferrous sulfate 325 mg (65 mg elemental iron) oral tablet) 1 tab(s) by mouth Once a day Duration: 90 Days Unchanged furosemide (Lasix 20 mg oral tablet) 1 tab(s) by mouth Once a day Duration: 30 Days Unchanged gabapentin (gabapentin 400 mg oral capsule) 1 cap by mouth Three (3) times a day Unchanged guaiFENesin (Mucinex 600 mg oral tablet, extended release) 1 tab(s) by mouth Every 12 hours Unchanged insulin glargine (Lantus Solostar Pen 100 units/ mL 3 mL Pen) 50 unit(s) Subcutaneous Two (2) times a day Duration: 90 Days QS for 90 day supply Unchanged levocetirizine (levocetirizine 5 mg oral tablet) 1 tab(s) by mouth Daily at bedtime Unchanged liraglutide (Victoza 18 mg/ 3 mL subcutaneous Pen) 1.8 Milligram Subcutaneous Once a day Duration: 90 Days Unchanged olodaterol-tiotropium (Stiolto Respimat 60 ACT 2.5 mcg-2.5 mcg/ inh inhalation aerosol) 2 puff(s) by inhalation Every 24 hours COPD with asthma Unchanged pioglitazone (Actos 45 mg oral tablet) 1 tab(s) by mouth Once a day DM type 2, goal HbA1c < 7.5% Unchanged rosuvastatin (rosuvastatin 40 mg oral tablet) 1 tab(s) by mouth Once a day Hyperlipidemia LDL goal <100 Duration: 90 Days Pharmacy Information [facility]: [address] [place], [place] [id number] [phone] What How Much When Why Comments Stop Taking doxycycline (doxycycline hyclate 100 mg oral capsule) 1 cap by mouth Two (2) times a day Abscess Duration: 10 Days Stop Taking valsartan (Diovan 320 mg oral tablet) 1 tab(s) by mouth Once a day Please take this list to your next doctor s visit. Bring all medications you take, including over the counter medications, herbals and other supplements with you to your doctor s visit. Patients and families are reminded to discard old lists and to update any records with all medication providers or retail pharmacies. Education Materials Acute Pain, Adult Acute pain is a type of sudden pain that may last for just a few days or for as long as six months. It is often related to an illness, injury, or medical procedure. Acute pain may be mild, moderate, or severe. Pain can make it hard for you to do your normal, daily activities. It can cause anxiety and lead to other problems if it is left untreated. Treatment depends on the cause and severity of your pain. Acute pain usually goes away once your injury has healed or you are no longer ill. Follow these instructions at home: Medicines Take fwdw-ffw-kifbxxv and prescription medicines only as told by your health care provider. Take the lowest dose of medicine for the shortest amount of time needed to relieve the pain. If you are taking prescription pain medicine: ? Do not stop taking the medicine suddenly. Talk to your health care provider about how and when to discontinue prescription medicine. ? Do not take more pills than told by your health care provider even if your pain is severe. ? Do not take other tekh-lpv-bqiqmri pain medicines in addition to prescription pain medicine unless told by your health care provider. ? Ask your health care provider if the medicine requires you to avoid driving or using heavy machinery. ? Ask your health care provider if the medicine can cause constipation. You may need to take these actions to prevent or treat constipation: ? Drink enough fluid to keep your urine pale yellow. ? Eat foods that are high in fiber, such as beans, whole grains, and fresh fruits and vegetables. ? Take wfmd-xji-uxdiszr or prescription medicines. ? Limit foods that are high in fat and processed sugars, such as fried or sweet foods. Managing pain, stiffness, and swelling If directed, put ice on the affected area. To do this: Put ice in a plastic bag. Place a towel between your skin and the bag. Leave the ice on for 20 minutes, 2 3 times a day. If directed, apply heat to the affected area as often as told by your health care provider. Use the heat source that your health care provider recommends, such as a moist heat pack or a heating pad. Place a towel between your skin and the heat source. Leave the heat on for 20 30 minutes. Remove the heat if your skin turns bright red. This is especially important if you are unable to feel pain, heat, or cold. You may have a greater risk of getting burned. Activity Rest as told by your health care provider. Return to your normal activities as told by your health care provider. Ask your health care provider what activities are safe for you. General instructions Check your pain level as told by your health care provider. Ask your health care provider if other strategies such as distraction, relaxation, or physical therapies can help your pain. Keep all follow-up visits as told by your health care provider. This is important. Contact a health care provider if: Your pain is not controlled by medicine. Your pain does not improve or gets worse. You have side effects from pain medicines, such as vomiting or confusion. Get help right away if you: Have severe pain. Have trouble breathing. Lose consciousness. Have chest pain or pressure that lasts for more than a few minutes, or if you have other symptoms along with chest pain, including if you: ? Have pain or discomfort in one or both arms, your back, neck, jaw, or stomach. ? Have shortness of breath. ? Break out in a cold sweat. ? Feel nauseous. ? Become light-headed. These symptoms may represent a serious problem that is an emergency. Do not wait to see if the symptoms will go away. Get medical help right away. Call your local emergency services (911 in the [place] Do not drive yourself to the hospital. Summary Acute pain may be mild, moderate, or severe. It usually goes away once your injury has healed or you are no longer ill. Take haln-rmn-klbowrn and prescription medicines only as told by your health care provider. Ask your health care provider if the medicine prescribed to you can cause constipation. Contact a health care provider if your pain is not controlled by medicine. This information is not intended to replace advice given to you by your health care provider. Make sure you discuss any questions you have with your health care provider. Document Released: 03/20/2016 Document Revised: 07/22/2019 Document Reviewed: 07/22/2019 Elsevier Patient Education 2020 [employer] Diabetes Basics Diabetes (diabetes mellitus) is a long-term (chronic) disease. It occurs when the body does not properly use sugar (glucose) that is released from food after you eat. Diabetes may be caused by one or both of these problems: Your pancreas does not make enough of a hormone called insulin. Your body does not react in a normal way to insulin that it makes. Insulin lets sugars (glucose) go into cells in your body. This gives you energy. If you have diabetes, sugars cannot get into cells. This causes high blood sugar (hyperglycemia). Follow these instructions at home: How is diabetes treated? You may need to take insulin or other diabetes medicines daily to keep your blood sugar in balance. Take your diabetes medicines every day as told by your doctor. List your diabetes medicines here: Diabetes medicines Name of medicine: ? Amount (dose): Time (a.m./p.m.): Notes: ___ Name of medicine: ? Amount (dose): Time (a.m./p.m.): Notes: ___ Name of medicine: ? Amount (dose): Time (a.m./p.m.): Notes: ___ If you use insulin, you will learn how to give yourself insulin by injection. You may need to adjust the amount based on the food that you eat. List the types of insulin you use here: Insulin Insulin type: ? Amount (dose): Time (a.m./p.m.): Notes: ___ Insulin type: ? Amount (dose): Time (a.m./p.m.): Notes: ___ Insulin type: ? Amount (dose): Time (a.m./p.m.): Notes: ___ Insulin type: ? Amount (dose): Time (a.m./p.m.): Notes: ___ Insulin type: ? Amount (dose): Time (a.m./p.m.): Notes: ___ How do I manage my blood sugar? Check your blood sugar levels using a blood glucose monitor as directed by your doctor. Your doctor will set treatment goals for you. Generally, you should have these blood sugar levels: Before meals (preprandial): 80 130 mg/dL (4.4 7.2 mmol/L). After meals (postprandial): below 180 mg/dL (10 mmol/L). A1c level: less than 7%. Write down the times that you will check your blood sugar levels: Blood sugar checks Time: Notes: ___ Time: Notes: ___ Time: Notes: ___ Time: Notes: ___ Time: Notes: ___ Time: Notes: ___ What do I need to know about low blood sugar? Low blood sugar is called hypoglycemia. This is when blood sugar is at or below 70 mg/dL (3.9 mmol/L). Symptoms may include: Feeling: ? Hungry. ? Worried or nervous (anxious). ? Sweaty and clammy. ? Confused. ? Dizzy. ? Sleepy. ? Sick to your stomach (nauseous). Having: ? A fast heartbeat. ? A headache. ? A change in your vision. ? Tingling or no feeling (numbness) around the mouth, lips, or tongue. ? Jerky movements that you cannot control (seizure). Having trouble with: ? Moving (coordination). ? Sleeping. ? Passing out (fainting). ? Getting upset easily (irritability). Treating low blood sugar To treat low blood sugar, eat or drink something sugary right away. If you can think clearly and swallow safely, follow the 15:15 rule: Take 15 grams of a fast-acting carb (carbohydrate). Talk with your doctor about how much you should take. Some fast-acting carbs are: ? Sugar tablets (glucose pills). Take 3 4 glucose pills. ? 6 8 pieces of hard candy. ? 4 6 oz (120 150 mL) of fruit juice. ? 4 6 oz (120 150 mL) of regular (not diet) soda. ? 1 Tbsp (15 mL) honey or sugar. Check your blood sugar 15 minutes after you take the carb. If your blood sugar is still at or below 70 mg/dL (3.9 mmol/L), take 15 grams of a carb again. If your blood sugar does not go above 70 mg/dL (3.9 mmol/L) after 3 tries, get help right away. After your blood sugar goes back to normal, eat a meal or a snack within 1 hour. Treating very low blood sugar If your blood sugar is at or below 54 mg/dL (3 mmol/L), you have very low blood sugar (severe hypoglycemia). This is an emergency. Do not wait to see if the symptoms will go away. Get medical help right away. Call your local emergency services (911 in the [place] Do not drive yourself to the hospital. Questions to ask your health care provider Do I need to meet with a campus dean? What equipment will I need to care for myself at home? What diabetes medicines do I need? When should I take them? How often do I need to check my blood sugar? What number can I call if I have questions? When is my next doctor's visit? Where can I find a support group for people with diabetes? Where to find more information [employer]: www.diabetes.org [employer] Diabetes Educators: www.diabeteseducator.org/patient -resources Contact a doctor if: Your blood sugar is at or above 240 mg/dL (13.3 mmol/L) for 2 days in a row. You have been sick or have had a fever for 2 days or more, and you are not getting better. You have any of these problems for more than 6 hours: ? You cannot eat or drink. ? You feel sick to your stomach (nauseous). ? You throw up (vomit). ? You have watery poop (diarrhea). Get help right away if: Your blood sugar is lower than 54 mg/dL (3 mmol/L). You get confused. You have trouble: ? Thinking clearly. ? Breathing. Summary Diabetes (diabetes mellitus) is a long-term (chronic) disease. It occurs when the body does not properly use sugar (glucose) that is released from food after digestion. Take insulin and diabetes medicines as told. Check your blood sugar every day, as often as told. Keep all follow-up visits as told by your doctor. This is important. This information is not intended to replace advice given to you by your health care provider. Make sure you discuss any questions you have with your health care provider. Document Released: 06/08/2018 Document Revised: 04/26/2019 Document Reviewed: 06/08/2018 Elsevier Patient Education 2020 [employer] Additional Information VACCINATE! IT SAVES LIVES! Members of the community who have not yet received the COVID-19 vaccine and would like to receive it can visit one of [facility] vaccine clinics. There are many vaccine clinic locations within the [facility]. For locations and available times, please visit https://gettheshot.coronavirus.o hio.gov/. It is important to note that some COVID mobile vaccine clinics are held outdoors and may be canceled in rainy or stormy conditions. To learn more about pediatric vaccinations (ages 5-11), we invite you to visit the [facility] webpage. [email or web address] To learn more about the COVID-19 vaccine, we invite you to visit the CDC website for a list of frequently asked questions.https://www.cdc.gov/co ronavirus/2019-ncov/vaccines/faq .html [facility] Patient Portal Access Instructions: Stay connected with your healthcare team and access your personal medical information anytime with the [facility] Patient Portal. Please follow the directions below to create your [facility] account: 1.Access the email account you provided upon registration to the hospital/physician office.2.Look for an invitation email from [facility].3.Open the email and access the invitation link: Accept Invitation to [facility].4.Fill in the required hudson to create your account. To access your account, visit [facility]. Click the blue button labeled Access Patient Portal and then log in with the username and password that you created in the steps above. You will be able to view your test results, lab results, a summary of your visits, upcoming appointments and more. There is also a convenient messaging option where you can send secure messages to your provider. In addition, you will have the ability to download any documents or summaries to your computer and/or send the information securely to a physician. Remember that your healthcare information is confidential, so carefully consider who you will allow to register on the [facility] Patient Portal for access to your information. You can also access the [facility] Patient Portal on the [facility] merlene. Simply click on Patient Portal and then log into your account. If you would like to receive a full copy of your medical records, please contact the [facility] Medical Records Department by calling [phone], Monday through Monday between 8 a.m. and 4:30 p.m. HOW TO SAFELY DISPOSE OF PRESCRIPTION MEDICATIONS Please use one of the following methods to safely dispose of your unused medications. 1.Use a drug disposal kit: the drug disposal pouch allows you to safely discard your old and unused drugs. Ask your nurse to give you one when you are discharged.2.Visit a local take-back location: Many local pharmacies and police departments have programs that collect old and unwanted prescription drugs. Call your local pharmacy or go to http://[address]/5B2Qj5z to find one close to you.3.Make use of household items: Use cat litter or old coffee grounds to dispose medications if other options are not available. Mix your drugs with these household products, seal them in an airtight container and throw it into the garbage. Call [facility]: [phone] to be sure your drugs can be disposed of in this way. Some medicines may require a different approach.4.Never flush your medications down the toilet. IF YOU HAVE BEEN PRESCRIBED AN OPIOID FOR PAIN If you have been prescribed an opioid (such as hydrocodone, oxycodone or morphine), it is critical to understand the possible side effects and risks of opioid pain medications. Even when taken as directed, opioids can have several side effects including: Tolerance, meaning you might need to take more of a medication for the same pain relief. Nausea, vomiting and/or constipation. Sleepiness, dizziness, dry mouth, confusion, depression or itching. Physical dependence, meaning you have withdrawal symptoms when a medication is stopped, can develop within a few days. KNOW YOUR RESPONSIBILITIES It is important to know exactly how much and how often to take the opioid pain medications you are prescribed. Never take opioids in higher amounts or more often than prescribed. Do not combine opioids with alcohol or other drugs that cause drowsiness, such as benzodiazepines, also known as benzos, including diazepam and alprazolam, muscle relaxants or sleep aids. Never sell or share prescription opioids. This is illegal. Store opioids in a secure place and out of reach of others (including children, family, friends and visitors). The last page of this document has been signed and retained as a CHART COPY. Signatures Patient Education Materials Acute Pain, Adult Diabetes Basics Medication Leaflets My discharge plan and instructions have been reviewed and explained to me and I,SEUN VELASCO understand my current condition and have read and understand these discharge instructions. I have received a written copy of the plan/instructions. If I have questions, I am aware that I should contact my doctor. 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 He was admitted and has been on IV antibiotics with anticipation of transitioning to PO and discharge tomorrow. My evaluation was requested as a second opinion for incision and drainage. He reports that his pain is improving each day and that he feels overall better now than he has since this started. He has not had a fever (>38) over the past 24 hours. He is not having subjective chills. Review of Systems Negative except as noted above Physical Exam Vitals and Measurements T: 36.8 C (Oral) TMIN: 36.8 C (Oral) TMAX: 37.3 C (Oral) HR: 76 RR: 18 BP: 153/84 SpO2: 99% Weight Dosing Weight: 152.6 kg (12/04/22) Gen: NAD, conversant Chest: equal chest rise, non labored Card: 1+ edema, RRR HEENT: 12x6cm area of induration on the posterior nuchal fold. Centrally there is a 5mm dry adeherent eschar with a decompressed 1cm area of partially fluid filled bullae. No other areas of fluctuance appreciated. He is tender over the entire area but not more than would be expected. Moderate erythema. No lymphangitis Lab Results 12/07 06:14 WBC: 12.9 H Hgb: 14.0 Hct: 41.6 Platelet: 270 Neutrophil %: 83.0 H Glucose Level: 212 H Sodium Level: 136 Potassium Level: 4.6 BUN: 17.0 Creatinine Lvl (s): 0.76 Imaging Results and Diagnostics CT neck reviewed. Subcutaneous edema and cellulitis without discrete fluid collection. No deep space component/infection Assessment/Plan Neck cellulitis/abscess - This appears to at this point be more cellulitic than suppurative and I suspect the utility of incision and drainage is still limited. As this coalesces over the next week it is likely to point to the surface and drain spontaneously. This seems to be a process in evolution and the exam findings are more suggestive of a developing abscess that the CT images suggest. I discussed three plans with the patient: 1) Bedside I&D under local anesthesia - given the degree of induration a field block would be difficult. This would have the benefit of venting the area to allow for drainage rather than forming an abscess 2) Surgical debridement - he is moderate risk for anesthesia and I do not think the improvement in comfort justifies this risk. He is improving, has a declining leukocytosis, and there is no evidence of necrotizing infection 3) Continued observation - I suspect this will form a proper abscess over the next week. Likely this will drain intermittently and this should be encouraged. I advised him to use a warm compress over the area to encourage drainage. He can follow up in my office in 1 week if his symptoms persist and drainage will likely be more straightforward and with continued improvement in his edema a field block will be more efficacious. He elected to continue to observe the area. I discussed S/S of worsening infection and indications to call the office or return to the ED. He should monitor his temperature and notify regarding fevers. All questions answered to his apparent satisfaction. I discussed that he is at high risk for poor wound healing, secondary infection, and a longer course due to his diabetes and body habitus. Problem List/Past Medical History Ongoing Abnormal chest x-ray Abnormal computed tomography angiography (CTA) Aortic arch atherosclerosis with tortuosity BMI 50.0-59.9, adult Cardiac enlargement, moderate Chronic knee pain Chronic venous insufficiency COPD with asthma Diabetic polyneuropathy DM type 2, goal HbA1c < 7.5% Edema of right lower leg Ejection fraction < 55% Encounter for screening colonoscopy Hemorrhoids History of anemia History of pulmonary hypertension HTN, goal below 140/90 Hyperlipidemia LDL goal <100 Iron deficiency anemia Morbid obesity Non-smoker Obstructive sleep apnea on CPAP Osteoarthritis of multiple joints Pain in joint of left knee Pain of right lower extremity Portal hypertension syndrome PVD (peripheral vascular disease) Screening for prostate cancer Seasonal allergies Vitamin D deficiency Historical Increased BMI (body mass index) MRSA pneumonia Procedure/Surgical History Nerve conduction study: 04/11/17 Medications Home Medications (26) Active Actos 45 mg oral tablet 45 mg = 1 tab(s), Oral, qDay Blood Glucose Test Strips See Instructions CeleBREX 200 mg oral capsule 200 mg = 1 cap(s), Oral, qDay cholecalciferol 1250 mcg (50,000 intl units) oral capsule 1,250 mcg = 1 cap(s), Oral, qWeek clopidogrel 75 mg oral tablet 75 mg = 1 tab(s), Oral, qDay Diovan 320 mg oral tablet 320 mg = 1 tab(s), Oral, qDay DME MISCellaneous See Instructions DME MISCellaneous See Instructions DME MISCellaneous See Instructions doxycycline hyclate 100 mg oral capsule 100 mg = 1 cap(s), Oral, BID EpiPen 2-Jamal 0.3 mg injectable kit 0.3 mg, PRN, Subcutaneous, AsDirected ferrous sulfate 325 mg (65 mg elemental iron) oral tablet 325 mg = 1 tab(s), Oral, qDay gabapentin 400 mg oral capsule 400 mg = 1 cap(s), Oral, TID Lancets See Instructions Lantus Solostar Pen 100 units/mL 3 mL Pen 50 unit(s), Subcutaneous, BID Lasix 20 mg oral tablet 20 mg = 1 tab(s), Oral, qDay levocetirizine 5 mg oral tablet 5 mg = 1 tab(s), Oral, qHS Mucinex 600 mg oral tablet, extended release 600 mg = 1 tab(s), Oral, q12h Norvasc 5 mg oral tablet 5 mg = 1 tab(s), Oral, qDay NovoLOG 100 units/mL injectable solution 10 unit(s), Subcutaneous, BID NovoLOG FlexPen 100 units/mL injectable solution 28 unit(s), Subcutaneous, TIDAC Pen needles 8 mm See Instructions ProAir HFA MDI (90 mcg/inh) inhalation aerosol 2 puff(s), PRN, Inhalation, q6h rosuvastatin 40 mg oral tablet 40 mg = 1 tab(s), Oral, qDay Stiolto Respimat 60 ACT 2.5 mcg-2.5 mcg/inh inhalation aerosol 2 puff(s), Inhalation, q24h Victoza 18 mg/3 mL subcutaneous Pen 1.8 mg, Subcutaneous, qDay Allergies Bee Stings (Unknown) [place] Prefilled Pen ([place] sick) SMZ-TMP DS (Rash) amoxicillin (amoxicillin) metFORMIN (Diarrhea) penicillin (Drowsiness) Social History Alcohol Use: Past., 10/26/2018 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 Lung cancer: Mother. Immunizations No qualifying data available. Code Status Code Status - Ordered -- 12/04/22 18:19:00 EDT, Full Code, Constant Order Digitally Signed by LUIS DANIEL BURROWS MD on 12/07/2022 07:09 PM [facility] 12-07-2022 Note Date of Service 12/07/2022 Chief Complaint Posterior neck abscess Subjective Patient is a 52 year old male with a past medical history significant for morbid obesity, obstructive sleep apnea treated with BiPAP at night, GERD, tobacco use, TIA, hypertension, type 2 diabetes mellitus on insulin at home, and tobacco use. Patient originally presented to [facility] emergency department on December 04, 2022 with complaints of posterior neck abscess and cellulitis. Patient had been evaluated by his primary care physician and placed on doxycycline as outpatient on 12/01/2022. Symptoms did not improve and patient then presented to the emergency department for further evaluation. Patient was found to have abscess with cellulitis and transferred to [facility] for further evaluation. Patient has been evaluated by ENT. Per ENT there is no abscess formation and recommend continuing IV antibiotics x24 to 48 hours. Patient seen in his room today. Patient reports discomfort to accepted as well as left posterior neck. Patient with scabbed area x2 as well as large amount of redness with induration. We will continue IV antibiotics at this time. Wound culture ordered. Consult wound physician for possible drainage of abscess. Plan of care discussed with patient and patient is agreeable at this time. Objective Vitals and Measurements T: 36.8 C (Oral) TMIN: 36.8 C (Oral) TMAX: 37.8 C (Oral) HR: 90 RR: 18 BP: 120/63 SpO2: 94% Intake and Output 7AM Yesterday to 7AM Today Intake and Output (Last 24 hours) Intake Oral Intake 580.00 Output Stool Count 0.00 Urine Count 2.00 Total Summary Total Intake 580.00 Total Output 0.00 Fluid Balance 580.00 Physical Exam GEN: non-toxic appearing EYES: No conjunctival erythema, drainage. EOMI EARS: Hearing grossly intact. NOSE: No nasal discharge. THROAT: Oral cavity and pharynx pink and moist. CHEST: Normal S1 and S2. Rhythm is regular. Clear to auscultation, without rales, rhonchi, wheezing. ABD: Positive bowel sounds x 4 quads. Soft, nondistended, nontender. EXT: No significant deformity or joint abnormality. No edema. Peripheral pulses intact. NEURO: Sensation grossly intact SKIN: Skin pink, warm, dry. PSYCH: Alert and oriented x4. Weight Dosing Weight: 152.6 kg (12/04/22) Medications Medications (18) Active Scheduled: (13) acetaminophen 500 mg Tablet 1,000 mg 2 tab(s), Oral, TID amLODIPine 5 mg tablet 5 mg 1 tab(s), Oral, qDay clopidogrel 75 mg Tablet 75 mg 1 tab(s), Oral, qDay enoxaparin 30 mg/ 0.3 mL syringe 30 mg 0.3 mL, Subcutaneous, q12h gabapentin 400 mg capsule 400 mg 1 cap(s), Oral, TID insulin glargine 50 unit(s) 0.5 mL, Subcutaneous (INT), BID insulin lispro 100 units/mL Soln (3 mL) Give 0-15 units/dose, Subcutaneous, TIDAC insulin lispro 100 units/mL Soln (3 mL) 10 unit(s) 0.1 mL, Subcutaneous, TIDAC liraglutide 18 mg/3 mL Pen 1.8 mg 0.3 mL, Subcutaneous, qDay mupirocin 2% Ointment 22 Gram(s) tube 1 merlene, Topical, BID rosuvastatin 20 mg tablet 40 mg 2 tab(s), Oral, qDay valsartan 320 mg tablet 320 mg 1 tab(s), Oral, qDay vancomycin PMX 2,000 mg 500 mL, IV Piggyback, q12h Continuous: (0) PRN: (5) acetaminophen 325 mg Tablet 650 mg 2 tab(s), Oral, q4h albuterol - ipratropium 2.5 mg-0.5 mg/3 mL Inhal Rona UD 3 mL, Inhalation, q4hRT melatonin 3 mg tablet 3 mg 1 tab(s), Oral, qHS oxycodone 5 mg tablet (immediate release) 5 mg 1 tab(s), Oral, q4h oxycodone 5 mg tablet (immediate release) 10 mg 2 tab(s), Oral, q4h Lab Results 12/07 06:14 WBC: 12.9 H Hgb: 14.0 Hct: 41.6 Platelet: 270 Neutrophil %: 83.0 H Glucose Level: 212 H Sodium Level: 136 Potassium Level: 4.6 BUN: 17.0 Creatinine Lvl (s): 0.76 12/06 04:02 WBC: 15.2 H Hgb: 13.9 Hct: 41.0 Platelet: 239 Neutrophil %: 85.6 H Glucose Level: 286 H Sodium Level: 135 L Potassium Level: 4.4 BUN: 20.0 Creatinine Lvl (s): 0.93 EKG No qualifying data available. Assessment/Plan Posterior neck cellulitis, failed outpatient antibiotics DM2 Morbid obesity NICHOLE on Cpap Hypertension BLE doppler Leukocytosis Posterior neck cellulitis/abscess - continue IV Vancomycin - ENT consulted. Reported no drainable abscess at that time, continue IV antibiotics x24 to 48 hours. -Blood cultures showing no growth to date -Consult wound physician for possible drainage posterior scalp abscess. -Wound culture ordered. Leukocytosis related to posterior neck cellulitis -Leukocytosis continues to improve, WBC 12.9 on 12/07/2022. Neck pain-r/t above -As needed pain medications Type 2 diabetes -Lantus 50 BID -Humalog 10 units prior to meals -Continue Victoza -Accu-Cheks with sliding scale coverage -ADA diet BLE edema -BLE venous dopplers negative for DVT NICHOLE- continue Bipap as per home. Hypertension -continue home medications Morbid Obesity, complicating all aspects of care Discussed with collaborating physician, Dr. Velazquez. Digitally Signed by SHASTA MONTESINOS on 12/07/2022 02:01 PM [facility] 12-07-2022 Note Date of Service 12/07/2022 Chief Complaint Posterior neck abscess Subjective Patient is a 52 year old male with a past medical history significant for morbid obesity, obstructive sleep apnea treated with BiPAP at night, GERD, tobacco use, TIA, hypertension, type 2 diabetes mellitus on insulin at home, and tobacco use. Patient originally presented to [facility] emergency department on December 04, 2022 with complaints of posterior neck abscess and cellulitis. Patient had been evaluated by his primary care physician and placed on doxycycline as outpatient on 12/01/2022. Symptoms did not improve and patient then presented to the emergency department for further evaluation. Patient was found to have abscess with cellulitis and transferred to [facility] for further evaluation. Patient has been evaluated by ENT. Per ENT there is no abscess formation and recommend continuing IV antibiotics x24 to 48 hours. Patient seen in his room today. Patient reports discomfort to accepted as well as left posterior neck. Patient with scabbed area x2 as well as large amount of redness with induration. We will continue IV antibiotics at this time. Wound culture ordered. Consult wound physician for possible drainage of abscess. Plan of care discussed with patient and patient is agreeable at this time. Objective Vitals and Measurements T: 36.8 C (Oral) TMIN: 36.8 C (Oral) TMAX: 37.8 C (Oral) HR: 90 RR: 18 BP: 120/63 SpO2: 94% Intake and Output 7AM Yesterday to 7AM Today Intake and Output (Last 24 hours) Intake Oral Intake 580.00 Output Stool Count 0.00 Urine Count 2.00 Total Summary Total Intake 580.00 Total Output 0.00 Fluid Balance 580.00 Physical Exam GEN: non-toxic appearing EYES: No conjunctival erythema, drainage. EOMI EARS: Hearing grossly intact. NOSE: No nasal discharge. THROAT: Oral cavity and pharynx pink and moist. CHEST: Normal S1 and S2. Rhythm is regular. Clear to auscultation, without rales, rhonchi, wheezing. ABD: Positive bowel sounds x 4 quads. Soft, nondistended, nontender. EXT: No significant deformity or joint abnormality. No edema. Peripheral pulses intact. NEURO: Sensation grossly intact SKIN: Skin pink, warm, dry. PSYCH: Alert and oriented x4. Weight Dosing Weight: 152.6 kg (12/04/22) Medications Medications (18) Active Scheduled: (13) acetaminophen 500 mg Tablet 1,000 mg 2 tab(s), Oral, TID amLODIPine 5 mg tablet 5 mg 1 tab(s), Oral, qDay clopidogrel 75 mg Tablet 75 mg 1 tab(s), Oral, qDay enoxaparin 30 mg/ 0.3 mL syringe 30 mg 0.3 mL, Subcutaneous, q12h gabapentin 400 mg capsule 400 mg 1 cap(s), Oral, TID insulin glargine 50 unit(s) 0.5 mL, Subcutaneous (INT), BID insulin lispro 100 units/mL Soln (3 mL) Give 0-15 units/dose, Subcutaneous, TIDAC insulin lispro 100 units/mL Soln (3 mL) 10 unit(s) 0.1 mL, Subcutaneous, TIDAC liraglutide 18 mg/3 mL Pen 1.8 mg 0.3 mL, Subcutaneous, qDay mupirocin 2% Ointment 22 Gram(s) tube 1 merlene, Topical, BID rosuvastatin 20 mg tablet 40 mg 2 tab(s), Oral, qDay valsartan 320 mg tablet 320 mg 1 tab(s), Oral, qDay vancomycin PMX 2,000 mg 500 mL, IV Piggyback, q12h Continuous: (0) PRN: (5) acetaminophen 325 mg Tablet 650 mg 2 tab(s), Oral, q4h albuterol - ipratropium 2.5 mg-0.5 mg/3 mL Inhal Rona UD 3 mL, Inhalation, q4hRT melatonin 3 mg tablet 3 mg 1 tab(s), Oral, qHS oxycodone 5 mg tablet (immediate release) 5 mg 1 tab(s), Oral, q4h oxycodone 5 mg tablet (immediate release) 10 mg 2 tab(s), Oral, q4h Lab Results 12/07 06:14 WBC: 12.9 H Hgb: 14.0 Hct: 41.6 Platelet: 270 Neutrophil %: 83.0 H Glucose Level: 212 H Sodium Level: 136 Potassium Level: 4.6 BUN: 17.0 Creatinine Lvl (s): 0.76 12/06 04:02 WBC: 15.2 H Hgb: 13.9 Hct: 41.0 Platelet: 239 Neutrophil %: 85.6 H Glucose Level: 286 H Sodium Level: 135 L Potassium Level: 4.4 BUN: 20.0 Creatinine Lvl (s): 0.93 EKG No qualifying data available. Assessment/Plan Posterior neck cellulitis, failed outpatient antibiotics DM2 Morbid obesity NICHOLE on Cpap Hypertension BLE doppler Leukocytosis Posterior neck cellulitis/abscess - continue IV Vancomycin - ENT consulted. Reported no drainable abscess at that time, continue IV antibiotics x24 to 48 hours. -Blood cultures showing no growth to date -Consult wound physician for possible drainage posterior scalp abscess. -Wound culture ordered. Leukocytosis related to posterior neck cellulitis -Leukocytosis continues to improve, WBC 12.9 on 12/07/2022. Neck pain-r/t above -As needed pain medications Type 2 diabetes -Lantus 50 BID -Humalog 10 units prior to meals -Continue Victoza -Accu-Cheks with sliding scale coverage -ADA diet BLE edema -BLE venous dopplers negative for DVT NICHOLE- continue Bipap as per home. Hypertension -continue home medications Morbid Obesity, complicating all aspects of care Discussed with collaborating physician, Dr. Velazquez. Digitally Signed by SHASTA MONTESINOS on 12/07/2022 02:01 PM [facility] 12-07-2022 Evaluation + Plan note Extrac ross from: Title:History and Physical Author:LUIS DANIEL BURROWS Date:12/07/22 Neck cellulitis/abscess - Th is appears to at this point be more cellulitic than suppurative and I suspect the utility of incision and drainage is still limited. As this coalesces over the next week it is likely to point to the surface and drain spontaneously. This seems to be a process in evolution and the exam findings are more suggestive of a developing abscess that the CT images suggest. I discussed three plans with the patient: 1) Bedside I&D under local anesthesia - given the degree of induration a field block would be difficult. This would have the benefit of venting the area to allow for drainage rather than forming an abscess 2) Surgical debridement - he is moderate risk for anesthesia and I do not think the improvement in comfort justifies this risk. He is improving, has a declining leukocytosis, and there is no evidence of necrotizing infection 3) Continued observation - I suspect this will form a proper abscess over the next week. Likely this will drain intermittently and this should be encouraged. I advised him to use a warm compress over the area to encourage drainage. He can follow up in my office in 1 week if his symptoms persist and drainage will likely be more straightforward and with continued improvement in his edema a field block will be more efficacious. He elected to continue to observe the area. I discussed S/S of worsening infection and indications to call the office or return to the ED. He should monitor his temperature and notify regarding fevers. All questions answered to his apparent satisfaction. I discussed that he is at high risk for poor wound healing, secondary infection, and a longer course due to his diabetes and body habitus. Extracted from: Title:History and Physical Author:PHOEBE BROWN MD Date:12/04/22 Neck abscesses: 2 abscesses in the neck area as described in HPI Will likely need incision and drainage, failure outpatient antibiotics Blood cultures ordered, broad-spectrum antibiotics ordered including cefepime vancomycin ENT consulted Cellulitis of soft tissue of neck: Cellulitic changes of subcutaneous tissues as described in CT soft tissue neck in HPI Patient is on broad-spectrum antibiotics including cefepime and Vanco blood cultures have been ordered Hyperglycemia: Blood sugar of 321 at [facility], did receive insulin regular 8 units IV, blood sugar in 200s on arrival at [facility] Type 2 diabetes mellitus: Insulin lispro sliding scale, insulin glargine scheduled, diabetic diet Morbid obesity: Likely complicating management, BMI 54 History of TIA: Resume home medication of Plavix, statin added Hypertension: Resume home medication of amlodipine and valsartan Obstructive sleep apnea: BiPAP as at home Bilateral lower extremity swelling: Trace to 1 positive edema in bilateral lower extremities Order venous Doppler of lower extremity to evaluate for DVT DVT prophylaxis: Lovenox 30 mg subcutaneous twice daily Note was written using [employer] hide and skin classer software. Some of the meaning of the words and sentences might have changed during hide and skin classer, if there was ever some confusion about the meaning of some sentences, please do not hesitate to contact me. Future Appointments Appointment Date:01/26/2023 02:00:00 PM Scheduled Provider:DAVID CUMMINS APRN, CNP Location:[facility] Appointment Type:PC OV Follow Up Future Scheduled Tests Laboratory* C-Reactive Protein 06/07/22 * Iron Level 07/25/22 * Iron Level 01/25/23 * A1C Hemoglobin 01/28/23 * A1C Hemoglobin 07/25/22 * A1C Hemoglobin 01/25/23 * Complete Blood Count 06/07/22 * Complete Blood Count 07/25/22 * Complete Blood Count 01/25/23 * Lipid Profile 07/25/22 * Lipid Profile 01/25/23 * Albumin/Creatinine Ratio, Random Urine 01/28/23 * Albumin/Creatinine Ratio, Random Urine 01/25/23 * Microalbumin Level Urine 07/25/22 * Vitamin D Level 07/25/22 * Vitamin D Level 01/25/23 * Complete Metabolic Panel 06/13/22 * Complete Metabolic Panel 01/28/23 * Complete Metabolic Panel 06/07/22 * Complete Metabolic Panel 07/25/22 * Complete Metabolic Panel 01/25/23 * N-Terminal proBNP 06/07/22 * TIBC 07/25/22 * TIBC 01/25/23 Radiology* XR Knee 3 Views Left 04/15/22 [facility] 09-20-2023 Otolaryngology Progress note Date of Service 12/07/2022 Chief Complaint Neck Cellulitis Subjective Patient states he is again improving this morning. Pain improving, swelling improving. States he isstill significantly tender. Denies any other symptoms. States the wounds are oozing a bit. He continues on IV antibiotics. He did start his chlorhexidine showers and topical bactroban. Whitecount is improving. Objective Vitals and Measurements T: 37.3 C (Oral) TMIN: 36.8 C (Oral) TMAX: 37.8 C (Oral) HR: 97 RR: 18 BP: 171/84 SpO2: 97% Intake and Output 7AM Yesterday to 7AM Today Intake and Output (Last 24 hours) Intake Oral Intake 220.00 Output Total Summary Total Intake 220.00 Total Output 0.00 Fluid Balance 220.00 Physical Exam General: Alert and oriented, morbidly obese male, resting comfortably in bed, in no acute distress. Respiratory: No respiratory distress. Breathing normally on room air. ENT: Patients erythema of posterior neck continues to improve, still edema of posterior neck. Multiple superficial pustules present within the hair covered skin. Induration of posterior neck is slowly improving. No appreciable fluctuance. He is diffusely tender to palpation, but improvement from yesterday. No active drainage Weight Dosing Weight: 152.6 kg (12/04/22) Medications Medications (18) Active Scheduled: (13) acetaminophen 500 mg Tablet 1,000 mg 2 tab(s), Oral, TID amLODIPine 5 mg tablet 5 mg 1 tab(s), Oral, qDay clopidogrel 75 mg Tablet 75 mg 1 tab(s), Oral, qDay enoxaparin 30 mg/ 0.3 mL syringe 30 mg 0.3 mL, Subcutaneous, q12h gabapentin 400 mg capsule 400 mg 1 cap(s), Oral, TID insulin glargine 50 unit(s) 0.5 mL, Subcutaneous (INT), BID insulin lispro 100 units/mL Soln (3 mL) Give 0-15 units/dose, Subcutaneous, TIDAC insulin lispro 100 units/mL Soln (3 mL) 10 unit(s) 0.1 mL, Subcutaneous, TIDAC liraglutide 18 mg/3 mL Pen 1.8 mg 0.3 mL, Subcutaneous, qDay mupirocin 2% Ointment 22 Gram(s) tube 1 merlene, Topical, BID rosuvastatin 20 mg tablet 40 mg 2 tab(s), Oral, qDay valsartan 320 mg tablet 320 mg 1 tab(s), Oral, qDay vancomycin PMX 2,000 mg 500 mL, IV Piggyback, q12h Continuous: (0) PRN: (5) acetaminophen 325 mg Tablet 650 mg 2 tab(s), Oral, q4h albuterol - ipratropium 2.5 mg-0.5 mg/3 mL Inhal Rona UD 3 mL, Inhalation, q4hRT melatonin 3 mg tablet 3 mg 1 tab(s), Oral, qHS oxycodone 5 mg tablet (immediate release) 5 mg 1 tab(s), Oral, q4h oxycodone 5 mg tablet (immediate release) 10 mg 2 tab(s), Oral, q4h Lab Results 12/07 06:14 WBC: 12.9 H Hgb: 14.0 Hct: 41.6 Platelet: 270 Neutrophil %: 83.0 H 12/06 04:02 WBC: 15.2 H Hgb: 13.9 Hct: 41.0 Platelet: 239 Neutrophil %: 85.6 H Glucose Level: 286 H Sodium Level: 135 L Potassium Level: 4.4 BUN: 20.0 Creatinine Lvl (s): 0.93 EKG No qualifying data available. Assessment/Plan Impression: Posterior neck cellulitis/folliculitis. Recommendations: Patient continues to improve daily. He still has no drainable abscess. ENT will sign off at this time. Would recommend sending him home with the chlorhexidine and topicalBactroban in addition to oral antibiotics. Explained to patient that this will slowly improve over the neck several weeks, slow process. Time Spent 10 mins Digitally Signed by LIBERTAD PAYNE PA-C on 12/07/2022 08:26 AM Digitally Signed by STEPHEN MILLIGAN MD [id number] Note Date of Service 12/06/22 Chief Complaint Neck pain Subjective Patient is a 52 year old male with a past medical history significant for morbid obesity, obstructive sleep apnea treated with BiPAP at night, GERD, tobacco use, TIA, hypertension, type 2 diabetes mellitus on insulin at home, and tobacco use. Patient originally presented to [facility] emergency department on December 04, 2022 with complaints of posterior neck abscess and cellulitis. Patient had been evaluated by his primary care physician and placed on doxycycline as outpatient on 12/01/2022. Symptoms did not improve and patient then presented to the emergency department for further evaluation. Patient was found to have abscess with cellulitis and transferred to [facility] f or further evaluation. Patient has been evaluated by ENT. Per ENT there is no abscess formation andrecommend continuing IV antibiotics. Patient resting up to side of bed. No family at bedside. Patient states that he is feeling better than yesterday. Patient continues complain of posterior neck pain relieved with as needed pain medication. Patient has no shortness of breath, chest pains, difficulty swallowing, fever or chills. Objective Vitals and Measurements T: 37.0 C (Oral) TMIN: 37.0 C (Oral) TMAX: 37.8 C (Oral) HR: 87 RR: 18 BP: 113/50 SpO2: 96% Intake and Output 7AM Yesterday to 7AM Today Intake and Output (Last 24 hours) Intake Oral Intake 1000.00 Output Urine Voided 750.00 Urine Count 1.00 Total Summary Total Intake 1000.00 Total Output 750.00 Fluid Balance 250.00 Physical Exam Vitals Signs(Last 24 hrs)__ Last Charted Minimum Maximum Temp 37.0(DEC 06 11:08) 37.0(DEC 06 11:08) H 37.8(DEC 05 15:17) Heart Rate 97(DEC 06 03:03) 97(DEC 06 03:03) H 114(NOV 18 22:50) Resp Rate 18(DEC 06 11:08) 18(DEC 05 15:17) 20(NOV 18 22:50) SBP 113(DEC 06 11:08) 100(DEC 06 03:03) H 173(NOV 18 22:50) DBP C 50(DEC 06 11:08) C 49(DEC 06 03:03) H 92(DEC 05 20:02) Physical Exam General: Morbid Obese. No acute distress. Alert and Appropriate Skin: No rash. Warm, Dry, Intact HEENT: Head is normocephalic and atraumatic. No lesions. Pupils equal in size. Extraocular movements within normal limits. Nose: No septal deviation. Mouth: Oropharynx mucosa is without lesion. Posterior neck, swelling improved. Firm . no drainage. Neck: Supple. No lymphadenopathy, thyromegaly noted. Lungs: Bilaterally clear/diminished breath sounds with no crepitation or wheeze. Unlabored Cardiovascular: Heart is regular rhythm, S1S2, No extra-audible heart tones Abdomen: Abdomen is soft, nontender. Rounded/obese. Bowel sounds positive all four quadrants. Extremities: No clubbing, cyanosis or edema. Peripheral pulses palpable. No calf tenderness. Adequate peripheral circulation. Neurological: The patient is awake, oriented to time, people and place. Following simple commands, moving all extremities. Weight Dosing Weight: 152.6 kg (12/04/22) Medications Medications (17) Active Scheduled: (12) amLODIPine 5 mg tablet 5 mg 1 tab(s), Oral, qDay clopidogrel 75 mg Tablet 75 mg 1 tab(s), Oral, qDay enoxaparin 30 mg/ 0.3 mL syringe 30 mg 0.3 mL, Subcutaneous, q12h gabapentin 400 mg capsule 400 mg 1 cap(s), Oral, TID insulin glargine 50 unit(s) 0.5 mL, Subcutaneous (INT), BID insulin lispro 100 units/mL Soln (3 mL) Give 0-15 units/dose, Subcutaneous, TIDAC liraglutide 18 mg/3 mL Pen 1.8 mg 0.3 mL, Subcutaneous, qDay mupirocin 2% Ointment 22 Gram(s) tube 1 merlene, Topical, BID pioglitazone 45 mg tablet 45 mg 1 tab(s), Oral, qDay rosuvastatin 20 mg tablet 40 mg 2 tab(s), Oral, qDay valsartan 320 mg tablet 320 mg 1 tab(s), Oral, qDay vancomycin PMX 1,750 mg 500 mL, IV Piggyback, q12h Continuous: (0) PRN: (5) acetaminophen 325 mg Tablet 650 mg 2 tab(s), Oral, q4h acetaminophen-OXYcodone 325 mg-5 mg Tablet 1 tab(s), Oral, q4h acetaminophen-OXYcodone 325 mg-5 mg Tablet 2 tab(s), Oral, q4h albuterol - ipratropium 2.5 mg-0.5 mg/3 mL Inhal Rona UD 3 mL, Inhalation, q4hRT melatonin 3 mg tablet 3 mg 1 tab(s), Oral, qHS Lab Results 12/06 04:02 WBC: 15.2 H Hgb: 13.9 Hct: 41.0 Platelet: 239 Neutrophil %: 85.6 H Glucose Level: 286 H Sodium Level: 135 L Potassium Level: 4.4 BUN: 20.0 Creatinine Lvl (s): 0.93 12/05 05:34 WBC: 17.1 H Hgb: 15.0 Hct: 44.8 Platelet: 266 Neutrophil %: 87.0 H Glucose Level: 216 H Sodium Level: 137 Potassium Level: 4.3 BUN: 17.0 Creatinine Lvl (s): 0.71 EKG EKG - Completed -- 12/04/22 18:21:00 EDT Assessment/Plan 1. Posterior neck cellulitis, failing outpatient antibiotics 2. DM2 3. Morbid obesity 4. NICHOLE on Cpap 5. Hypertension 6. BLE doppler 7. Leukocytosis Posterior neck cellulitis/abscess - continue IV antibiotics, Will continue Vancomycin. Will continue to monitor patient - ENT consulted. Appreciate input. -Blood cultures showing no growth to date -Clinically patient is improved. Leukocytosis- related to above. Slightly improved today Neck pain-r/t above. Will adjust pain medication. Scheduled Tylenol with prn oxycodone. -Heating pad ordered Continue home medication. Lantus 50 BID resumed today. Victoza 1.8mg daily. Patient states he take novolog 10 units BID (breakfast and supper) at home. Blood glucose checks TID. Sliding scale TID ADA diet Glycemic goal <180 BLE edema- BLE venous dopplers negative for DVT NICHOLE- continue Bipap as at home. Hypertension- continue home medications Morbid Obesity- complicating all aspects of care Plan of care discussed in depth with patient. Patient verbalizes understanding and is agreeable plan of care. okay to transfer to regular floor Discussed with my collaborating physician Dr. Doug Stanley This dictation was performed using voice recognition software and may include grammatical and/or spelling errors Time Spent 24 minutes Digitally Signed by BRENDAN SANCHEZ on 12/06/2022 01:38 PM Digitally Signed by BRENDAN SANCHEZ on 12/06/2022 01:57 PM [id number] Note Date of Service 12/06/22 Chief Complaint Neck pain Subjective Patient is a 52 year old male with a past medical history significant for morbid obesity, obstructive sleep apnea treated with BiPAP at night, GERD, tobacco use, TIA, hypertension, type 2 diabetes mellitus on insulin at home, and tobacco use. Patient originally presented to [facility] emergency department on December 04, 2022 with complaints of posterior neck abscess and cellulitis. Patient had been evaluated by his primary care physician and placed on doxycycline as outpatient on 12/01/2022. Symptoms did not improve and patient then presented to the emergency department for further evaluation. Patient was found to have abscess with cellulitis and transferred to [facility] f or further evaluation. Patient has been evaluated by ENT. Per ENT there is no abscess formation andrecommend continuing IV antibiotics. Patient resting up to side of bed. No family at bedside. Patient states that he is feeling better than yesterday. Patient continues complain of posterior neck pain relieved with as needed pain medication. Patient has no shortness of breath, chest pains, difficulty swallowing, fever or chills. Objective Vitals and Measurements T: 37.0 C (Oral) TMIN: 37.0 C (Oral) TMAX: 37.8 C (Oral) HR: 87 RR: 18 BP: 113/50 SpO2: 96% Intake and Output 7AM Yesterday to 7AM Today Intake and Output (Last 24 hours) Intake Oral Intake 1000.00 Output Urine Voided 750.00 Urine Count 1.00 Total Summary Total Intake 1000.00 Total Output 750.00 Fluid Balance 250.00 Physical Exam Vitals Signs(Last 24 hrs)__ Last Charted Minimum Maximum Temp 37.0(NOV 19 11:08) 37.0(DEC 06 11:08) H 37.8(NOV 18 15:17) Heart Rate 97(DEC 06 03:03) 97(DEC 06 03:03) H 114(SEP 18 22:50) Resp Rate 18(DEC 06 11:08) 18(NOV 18 15:17) 20(SEP 18 22:50) SBP 113(DEC 06 11:08) 100(NOV 19 03:03) H 173(SEP 18 22:50) DBP C 50(DEC 06 11:08) C 49(NOV 19 03:03) H 92(SEP 18 20:02) Physical Exam General: Morbid Obese. No acute distress. Alert and Appropriate Skin: No rash. Warm, Dry, Intact HEENT: Head is normocephalic and atraumatic. No lesions. Pupils equal in size. Extraocular movements within normal limits. Nose: No septal deviation. Mouth: Oropharynx mucosa is without lesion. Posterior neck, swelling improved. Firm . no drainage. Neck: Supple. No lymphadenopathy, thyromegaly noted. Lungs: Bilaterally clear/diminished breath sounds with no crepitation or wheeze. Unlabored Cardiovascular: Heart is regular rhythm, S1S2, No extra-audible heart tones Abdomen: Abdomen is soft, nontender. Rounded/obese. Bowel sounds positive all four quadrants. Extremities: No clubbing, cyanosis or edema. Peripheral pulses palpable. No calf tenderness. Adequate peripheral circulation. Neurological: The patient is awake, oriented to time, people and place. Following simple commands, moving all extremities. Weight Dosing Weight: 152.6 kg (12/04/22) Medications Medications (17) Active Scheduled: (12) amLODIPine 5 mg tablet 5 mg 1 tab(s), Oral, qDay clopidogrel 75 mg Tablet 75 mg 1 tab(s), Oral, qDay enoxaparin 30 mg/ 0.3 mL syringe 30 mg 0.3 mL, Subcutaneous, q12h gabapentin 400 mg capsule 400 mg 1 cap(s), Oral, TID insulin glargine 50 unit(s) 0.5 mL, Subcutaneous (INT), BID insulin lispro 100 units/mL Soln (3 mL) Give 0-15 units/dose, Subcutaneous, TIDAC liraglutide 18 mg/3 mL Pen 1.8 mg 0.3 mL, Subcutaneous, qDay mupirocin 2% Ointment 22 Gram(s) tube 1 merlene, Topical, BID pioglitazone 45 mg tablet 45 mg 1 tab(s), Oral, qDay rosuvastatin 20 mg tablet 40 mg 2 tab(s), Oral, qDay valsartan 320 mg tablet 320 mg 1 tab(s), Oral, qDay vancomycin PMX 1,750 mg 500 mL, IV Piggyback, q12h Continuous: (0) PRN: (5) acetaminophen 325 mg Tablet 650 mg 2 tab(s), Oral, q4h acetaminophen-OXYcodone 325 mg-5 mg Tablet 1 tab(s), Oral, q4h acetaminophen-OXYcodone 325 mg-5 mg Tablet 2 tab(s), Oral, q4h albuterol - ipratropium 2.5 mg-0.5 mg/3 mL Inhal Rona UD 3 mL, Inhalation, q4hRT melatonin 3 mg tablet 3 mg 1 tab(s), Oral, qHS Lab Results 12/06 04:02 WBC: 15.2 H Hgb: 13.9 Hct: 41.0 Platelet: 239 Neutrophil %: 85.6 H Glucose Level: 286 H Sodium Level: 135 L Potassium Level: 4.4 BUN: 20.0 Creatinine Lvl (s): 0.93 12/05 05:34 WBC: 17.1 H Hgb: 15.0 Hct: 44.8 Platelet: 266 Neutrophil %: 87.0 H Glucose Level: 216 H Sodium Level: 137 Potassium Level: 4.3 BUN: 17.0 Creatinine Lvl (s): 0.71 EKG EKG - Completed -- 12/04/22 18:21:00 EDT Assessment/Plan 1. Posterior neck cellulitis, failing outpatient antibiotics 2. DM2 3. Morbid obesity 4. NICHOLE on Cpap 5. Hypertension 6. BLE doppler 7. Leukocytosis Posterior neck cellulitis/abscess - continue IV antibiotics, Will continue Vancomycin. Will continue to monitor patient - ENT consulted. Appreciate input. -Blood cultures showing no growth to date -Clinically patient is improved. Leukocytosis- related to above. Slightly improved today Neck pain-r/t above. Will adjust pain medication. Scheduled Tylenol with prn oxycodone. -Heating pad ordered Continue home medication. Lantus 50 BID resumed today. Victoza 1.8mg daily. Patient states he take novolog 10 units BID (breakfast and supper) at home. Blood glucose checks TID. Sliding scale TID ADA diet Glycemic goal <180 BLE edema- BLE venous dopplers negative for DVT NICHOLE- continue Bipap as at home. Hypertension- continue home medications Morbid Obesity- complicating all aspects of care Plan of care discussed in depth with patient. Patient verbalizes understanding and is agreeable plan of care. okay to transfer to regular floor Discussed with my collaborating physician Dr. Doug Stanley This dictation was performed using voice recognition software and may include grammatical and/or spelling errors Time Spent 24 minutes Digitally Signed by BRENDAN SANCHEZ on 12/06/2022 01:38 PM Digitally Signed by BRENDAN SANCHEZ on 12/06/2022 01:57 PM [id number] Otol[facility]ology Progress note Date of Service 12/06/2022 Chief Complaint Neck Cellulitis Subjective Patient states he is again improving this morning. Pain improving, swelling improving. States he isstill significantly tender. Denies any other symptoms. He continues on IV antibiotics. He did start his chlorhexidine showers yesterday. White count is improving. Objective Vitals and Measurements T: 37.0 C (Axillary) TMIN: 36.8 C (Oral) TMAX: 37.8 C (Oral) HR: 103 RR: 20 BP: 139/63 SpO2: 94% Intake and Output 7AM Yesterday to 7AM Today Intake and Output (Last 24 hours) Intake Oral Intake 1000.00 Output Urine Voided 750.00 Urine Count 1.00 Total Summary Total Intake 1000.00 Total Output 750.00 Fluid Balance 250.00 Physical Exam General: Alert and oriented, morbidly obese male, resting comfortably in bed, in no acute distress. Respiratory: No respiratory distress. Breathing normally on room air. ENT: Patients erythema has significantly improved from yesterday, still edema of posterior neck. Multiple superficial pustules present within the hair covered skin. His entire neck remains indurated.No appreciable fluctuance. He is diffusely tender to palpation, but improvement from yesterday. No active drainage Weight Dosing Weight: 152.6 kg (12/04/22) Medications Medications (18) Active Scheduled: (13) amLODIPine 5 mg tablet 5 mg 1 tab(s), Oral, qDay clopidogrel 75 mg Tablet 75 mg 1 tab(s), Oral, qDay enoxaparin 30 mg/ 0.3 mL syringe 30 mg 0.3 mL, Subcutaneous, q12h gabapentin 400 mg capsule 400 mg 1 cap(s), Oral, TID insulin glargine 25 unit(s) 0.25 mL, Subcutaneous (INT), qHS insulin lispro 100 units/mL Soln (3 mL) Give 0-10 units/dose, Subcutaneous, TIDAC liraglutide 18 mg/3 mL Pen 1.8 mg 0.3 mL, Subcutaneous, qDay mupirocin 2% Ointment 22 Gram(s) tube 1 merlene, Topical, BID pioglitazone 45 mg tablet 45 mg 1 tab(s), Oral, qDay rosuvastatin 20 mg tablet 40 mg 2 tab(s), Oral, qDay valsartan 320 mg tablet 320 mg 1 tab(s), Oral, qDay vancomycin PMX 1,750 mg 500 mL, IV Piggyback, q12h vancomycin trough level 1 EA, Miscellaneous, Daily Continuous: (0) PRN: (5) acetaminophen 325 mg Tablet 650 mg 2 tab(s), Oral, q4h acetaminophen-OXYcodone 325 mg-5 mg Tablet 1 tab(s), Oral, q4h acetaminophen-OXYcodone 325 mg-5 mg Tablet 2 tab(s), Oral, q4h albuterol - ipratropium 2.5 mg-0.5 mg/3 mL Inhal Rona UD 3 mL, Inhalation, q4hRT melatonin 3 mg tablet 3 mg 1 tab(s), Oral, qHS Lab Results 12/06 04:02 WBC: 15.2 H Hgb: 13.9 Hct: 41.0 Platelet: 239 Neutrophil %: 85.6 H Glucose Level: 286 H Sodium Level: 135 L Potassium Level: 4.4 BUN: 20.0 Creatinine Lvl (s): 0.93 12/05 05:34 WBC: 17.1 H Hgb: 15.0 Hct: 44.8 Platelet: 266 Neutrophil %: 87.0 H Glucose Level: 216 H Sodium Level: 137 Potassium Level: 4.3 BUN: 17.0 Creatinine Lvl (s): 0.71 EKG EKG - Completed -- 12/04/22 18:21:00 EDT Assessment/Plan DM type 2, goal HbA1c < 7.5% HTN, goal below 140/90 Hyperlipidemia LDL goal <100 Orders: mupirocin topical, Start: 12/05/22 9:57:00 EDT, Dose = 1 merlene, Topical, BID, Apply to: neck, Ointment, 12/05/22 9:57:00 EDT Chlorhexadine Skin Prep/Scrub Impression: Posterior neck cellulitis/folliculitis. Recommendations: We will continue to watch patient while he remains inpatient. If he continues to improve he will likely be discharged to home tomorrow on oral antibiotics. He still has no drainable abscess. He should remain on IV vancomycin, would recommend continuing chlorhexidine showers and topical Bactroban. Time Spent 15 mins Digitally Signed by LIBERTAD PAYNE PA-C on 12/06/2022 09:40 AM Digitally Signed by STEPHEN MILLIGAN MD [facility] [id number] Nurse Progress note Chlorhexidine bath done. Bed linen changed. Digitally Signed by Mauro Matthews RN on 12/05/2022 07:58 PM [facility] [id number] Note Date of Service 12/05/22 Chief Complaint Neck abscess Subjective Patient is a 52 year old male with a past medical history significant for morbid obesity, obstructive sleep apnea treated with BiPAP at night, GERD, tobacco use, TIA, hypertension, type 2 diabetes mellitus on insulin at home, and tobacco use. Patient originally presented to [facility] emergency department on December 04, 2022 with complaints of posterior neck abscess and cellulitis. Patient had been evaluated by his primary care physician and placed on doxycycline as outpatient on 12/01/2022. Symptoms did not improve and patient then presented to the emergency department for further evaluation. Patient was found to have abscess with cellulitis and transferred to [facility] f or further evaluation. Patient has been evaluated by ENT. Per ENT there is no abscess formation andrecommend continuing IV antibiotics. Patient resting up to side of bed. No family at bedside. Patient's friend is currently on FaceTime during the examination. Patient states that posterior neck swelling has significantly improved. Patient states I am feeling much better. Patient has any shortness of breath, chest pain, nausea, vomiting, lightness, dizziness, fever and chills. Objective Vitals and Measurements T: 36.8 C (Oral) TMIN: 36.6 C (Oral) TMAX: 37.2 C (Oral) HR: 85(Monitored) RR: 18 BP: 129/56 SpO2: 96% HT: 167.6 cm WT: 152.6 kg BMI: 54.33 Intake and Output 7AM Yesterday to 7AM Today Intake and Output (Last 24 hours) Intake Oral Intake 900.00 Output Urine Count 1.00 Total Summary Total Intake 900.00 Total Output 0.00 Fluid Balance 900.00 Physical Exam Vitals Signs(Last 24 hrs)__ Last Charted Minimum Maximum Temp 36.8(NOV 18 10:42) 36.8(NOV 18 10:42) 37.2(DEC 04 17:06) Heart Rate 85(NOV 18 10:42) 85(NOV 18 10:42) 93(NOV 18 06:58) Resp Rate 18(NOV 18 10:42) 18(NOV 17 17:06) 20(NOV 17 18:35) SBP 129(NOV 18 10:42) 129(NOV 18 10:42) H 175(NOV 17 17:06) DBP L 56(NOV 18 10:42) L 56(NOV 18 10:42) C 105(NOV 17 17:32) Physical Exam General: No acute distress. Alert and Appropriate Skin: No rash. Warm, Dry, Intact HEENT: Head is normocephalic and atraumatic. No lesions. Pupils equal in size. Extraocular movements within normal limits. Nose: No septal deviation. Mouth: Oropharynx mucosa is without lesion. Posterior neck, swelling improved, moderate. no drainage. Neck: Supple. No lymphadenopathy, thyromegaly noted. Lungs: Bilaterally clear/diminished breath sounds with no crepitation or wheeze. Unlabored Cardiovascular: Heart is regular rhythm, S1S2, No extra-audible heart tones Abdomen: Abdomen is soft, nontender. Rounded/obese. Bowel sounds positive all four quadrants. Extremities: No clubbing, cyanosis or edema. Peripheral pulses palpable. No calf tenderness. Adequate peripheral circulation. Neurological: The patient is awake, oriented to time, people and place. Following simple commands, moving all extremities. Weight Dosing Weight: 152.6 kg (12/04/22) Medications Medications (19) Active Scheduled: (14) amLODIPine 5 mg tablet 5 mg 1 tab(s), Oral, qDay cefepime 2 gram(s), IV Piggyback, q8hr clopidogrel 75 mg Tablet 75 mg 1 tab(s), Oral, qDay enoxaparin 30 mg/ 0.3 mL syringe 30 mg 0.3 mL, Subcutaneous, q12h gabapentin 400 mg capsule 400 mg 1 cap(s), Oral, TID insulin glargine 25 unit(s) 0.25 mL, Subcutaneous (INT), qHS insulin lispro 100 units/mL Soln (3 mL) Give 0-10 units/dose, Subcutaneous, TIDAC liraglutide 18 mg/3 mL Pen 1.8 mg 0.3 mL, Subcutaneous, qDay mupirocin 2% Ointment 22 Gram(s) tube 1 merlene, Topical, BID pioglitazone 45 mg tablet 45 mg 1 tab(s), Oral, qDay rosuvastatin 20 mg tablet 40 mg 2 tab(s), Oral, qDay valsartan 320 mg tablet 320 mg 1 tab(s), Oral, qDay vancomycin PMX 1,750 mg 500 mL, IV Piggyback, q12h vancomycin trough level 1 EA, Miscellaneous, Daily Continuous: (0) PRN: (5) acetaminophen 325 mg Tablet 650 mg 2 tab(s), Oral, q4h acetaminophen-OXYcodone 325 mg-5 mg Tablet 1 tab(s), Oral, q4h acetaminophen-OXYcodone 325 mg-5 mg Tablet 2 tab(s), Oral, q4h albuterol - ipratropium 2.5 mg-0.5 mg/3 mL Inhal Rona UD 3 mL, Inhalation, q4hRT melatonin 3 mg tablet 3 mg 1 tab(s), Oral, qHS Lab Results 12/05 05:34 WBC: 17.1 H Hgb: 15.0 Hct: 44.8 Platelet: 266 Neutrophil %: 87.0 H Glucose Level: 216 H Sodium Level: 137 Potassium Level: 4.3 BUN: 17.0 Creatinine Lvl (s): 0.71 EKG Electrocardiogram (EKG) - InProcess -- 12/04/22 18:21:00 EDT Assessment/Plan 1. Posterior neck cellulitis/abscess, failing outpatient antibiotics 2. DM2 3. Morbid obesity 4. NICHOLE on Cpap 5. Hypertension 6. BLE doppler 7. Leukocytosis Posterior neck cellulitis/abscess - continue IV antibiotics, Will continue Vancomycin and discontinue cefepime. Will plan on transitioning to oral Bactrim on discharge - ENT consulted. Appreciate input. -Blood cultures showing no growth to date -Clinically patient is improved. Leukocytosis- related to above. Continue home medication. Blood glucose checks TID. Sliding scale TID ADA diet Glycemic goal <180 BLE edema- BLE venous dopplers pending NICHOLE- continue Bipap as at home. Hypertension- continue home medications Morbid Obesity- complicating all aspects of care Plan of care discussed in depth with patient. Patient verbalizes understanding and is agreeable plan of care. okay to transfer to regular floor Discussed with my collaborating physician Dr. Seun Quevedo This dictation was performed using voice recognition software and may include grammatical and/or spelling errors Digitally Signed by BRENDAN SANCHEZ on 12/05/2022 01:19 PM [id number]* Exam Date Time Procedure Performing Provider Status 12/05/22 1:23 PM VL Venous US/Doppler Both Legs(for DVT) Auth (Verified) [facility] 09-18-2023 Note Date of Service 12/05/22 Chief Complaint Neck abscess Subjective Patient is a 52 year old male with a past medical history significant for morbid obesity, obstructive sleep apnea treated with BiPAP at night, GERD, tobacco use, TIA, hypertension, type 2 diabetes mellitus on insulin at home, and tobacco use. Patient originally presented to [facility] emergency department on December 04, 2022 with complaints of posterior neck abscess and cellulitis. Patient had been evaluated by his primary care physician and placed on doxycycline as outpatient on 12/01/2022. Symptoms did not improve and patient then presented to the emergency department for further evaluation. Patient was found to have abscess with cellulitis and transferred to [facility] f or further evaluation. Patient has been evaluated by ENT. Per ENT there is no abscess formation andrecommend continuing IV antibiotics. Patient resting up to side of bed. No family at bedside. Patient's friend is currently on FaceTime during the examination. Patient states that posterior neck swelling has significantly improved. Patient states I am feeling much better. Patient has any shortness of breath, chest pain, nausea, vomiting, lightness, dizziness, fever and chills. Objective Vitals and Measurements T: 36.8 C (Oral) TMIN: 36.6 C (Oral) TMAX: 37.2 C (Oral) HR: 85(Monitored) RR: 18 BP: 129/56 SpO2: 96% HT: 167.6 cm WT: 152.6 kg BMI: 54.33 Intake and Output 7AM Yesterday to 7AM Today Intake and Output (Last 24 hours) Intake Oral Intake 900.00 Output Urine Count 1.00 Total Summary Total Intake 900.00 Total Output 0.00 Fluid Balance 900.00 Physical Exam Vitals Signs(Last 24 hrs)__ Last Charted Minimum Maximum Temp 36.8(DEC 05 10:42) 36.8(DEC 05 10:42) 37.2(DEC 04 17:06) Heart Rate 85(DEC 05 10:42) 85(DEC 05 10:42) 93(NOV 18 06:58) Resp Rate 18(DEC 05 10:42) 18(DEC 04 17:06) 20(NOV 17 18:35) SBP 129(DEC 05 10:42) 129(DEC 05 10:42) H 175(DEC 04 17:06) DBP L 56(DEC 05 10:42) L 56(SEP 18 10:42) C 105(DEC 04 17:32) Physical Exam General: No acute distress. Alert and Appropriate Skin: No rash. Warm, Dry, Intact HEENT: Head is normocephalic and atraumatic. No lesions. Pupils equal in size. Extraocular movements within normal limits. Nose: No septal deviation. Mouth: Oropharynx mucosa is without lesion. Posterior neck, swelling improved, moderate. no drainage. Neck: Supple. No lymphadenopathy, thyromegaly noted. Lungs: Bilaterally clear/diminished breath sounds with no crepitation or wheeze. Unlabored Cardiovascular: Heart is regular rhythm, S1S2, No extra-audible heart tones Abdomen: Abdomen is soft, nontender. Rounded/obese. Bowel sounds positive all four quadrants. Extremities: No clubbing, cyanosis or edema. Peripheral pulses palpable. No calf tenderness. Adequate peripheral circulation. Neurological: The patient is awake, oriented to time, people and place. Following simple commands, moving all extremities. Weight Dosing Weight: 152.6 kg (12/04/22) Medications Medications (19) Active Scheduled: (14) amLODIPine 5 mg tablet 5 mg 1 tab(s), Oral, qDay cefepime 2 gram(s), IV Piggyback, q8hr clopidogrel 75 mg Tablet 75 mg 1 tab(s), Oral, qDay enoxaparin 30 mg/ 0.3 mL syringe 30 mg 0.3 mL, Subcutaneous, q12h gabapentin 400 mg capsule 400 mg 1 cap(s), Oral, TID insulin glargine 25 unit(s) 0.25 mL, Subcutaneous (INT), qHS insulin lispro 100 units/mL Soln (3 mL) Give 0-10 units/dose, Subcutaneous, TIDAC liraglutide 18 mg/3 mL Pen 1.8 mg 0.3 mL, Subcutaneous, qDay mupirocin 2% Ointment 22 Gram(s) tube 1 merlene, Topical, BID pioglitazone 45 mg tablet 45 mg 1 tab(s), Oral, qDay rosuvastatin 20 mg tablet 40 mg 2 tab(s), Oral, qDay valsartan 320 mg tablet 320 mg 1 tab(s), Oral, qDay vancomycin PMX 1,750 mg 500 mL, IV Piggyback, q12h vancomycin trough level 1 EA, Miscellaneous, Daily Continuous: (0) PRN: (5) acetaminophen 325 mg Tablet 650 mg 2 tab(s), Oral, q4h acetaminophen-OXYcodone 325 mg-5 mg Tablet 1 tab(s), Oral, q4h acetaminophen-OXYcodone 325 mg-5 mg Tablet 2 tab(s), Oral, q4h albuterol - ipratropium 2.5 mg-0.5 mg/3 mL Inhal Rona UD 3 mL, Inhalation, q4hRT melatonin 3 mg tablet 3 mg 1 tab(s), Oral, qHS Lab Results 12/05 05:34 WBC: 17.1 H Hgb: 15.0 Hct: 44.8 Platelet: 266 Neutrophil %: 87.0 H Glucose Level: 216 H Sodium Level: 137 Potassium Level: 4.3 BUN: 17.0 Creatinine Lvl (s): 0.71 EKG Electrocardiogram (EKG) - InProcess -- 12/04/22 18:21:00 EDT Assessment/Plan 1. Posterior neck cellulitis/abscess, failing outpatient antibiotics 2. DM2 3. Morbid obesity 4. NICHOLE on Cpap 5. Hypertension 6. BLE doppler 7. Leukocytosis Posterior neck cellulitis/abscess - continue IV antibiotics, Will continue Vancomycin and discontinue cefepime. Will plan on transitioning to oral Bactrim on discharge - ENT consulted. Appreciate input. -Blood cultures showing no growth to date -Clinically patient is improved. Leukocytosis- related to above. Continue home medication. Blood glucose checks TID. Sliding scale TID ADA diet Glycemic goal <180 BLE edema- BLE venous dopplers pending NICHOLE- continue Bipap as at home. Hypertension- continue home medications Morbid Obesity- complicating all aspects of care Plan of care discussed in depth with patient. Patient verbalizes understanding and is agreeable plan of care. okay to transfer to regular floor Discussed with my collaborating physician Dr. Seun Quevedo This dictation was performed using voice recognition software and may include grammatical and/or spelling errors Digitally Signed by BRENDAN SANCHEZ on 12/05/2022 01:19 PM [id number] Otolaryngology Consult note Date of Service 12/05/2022 Reason for Consultation neck abscesses History of Present Illness Mr. Velasco is a 52-year-old male with a past medical history of morbid obesity, NICHOLE, tobacco abuse,history of TIA, hypertension, type 2 diabetes on insulin, and GERD. He presented to [facility] yesterday with complaints of 1 week of worsening neck pain and swelling. He was transferred here to [facility] yesterday due to no ENT coverage in [place]. He failed outpatient treatment with doxycycl ine. Work-up in the ER revealed a white count. CT soft tissue neck was performed which showed left posterior neck cellulitis without abscess formation. He was started on vancomycin and cefepime. ENT was consulted for further recommendations. Patient is resting comfortably in bed this morning. He admits that his pain and swelling have definitely improved when compared to yesterday. He denies fevers, chills, nausea, vomiting, diarrhea. Denies drainage from the wounds. Review of Systems See HPI Physical Exam Vitals and Measurements T: 37.2 C (Oral) TMIN: 36.6 C (Oral) TMAX: 37.2 C (Oral) HR: 93(Monitored) RR: 18 BP: 165/81 SpO2: 97% HT: 167.6 cm WT: 152.6 kg BMI: 54.33 Weight Dosing Weight: 152.6 kg (12/04/22) General: Alert and oriented, morbidly obese male, resting comfortably in bed, in no acute distress. Respiratory: No respiratory distress. Breathing normally on room air. ENT: Patient has diffuse erythema and edema of posterior neck. Multiple superficial pustules present within the hair covered skin. His entire neck is extremely indurated. No appreciable fluctuance. He is diffusely tender to palpation. Lab Results 12/05 05:34 WBC: 17.1 H Hgb: 15.0 Hct: 44.8 Platelet: 266 Neutrophil %: 87.0 H Glucose Level: 216 H Sodium Level: 137 Potassium Level: 4.3 BUN: 17.0 Creatinine Lvl (s): 0.71 Imaging Results and Diagnostics (12/04/2022 11:[address] Soft Tissue Neck w/ Contrast) IMPRESSION: Cellulitic changes of the subcutaneous suboccipital and posterior left upper neck regions. The underlying posterior margin of the left SCM is enlarged/edematous, raising suspicion for underlying infectious/inflammatory or reactive myositis. No discrete fluid collection to suggest abscess. Consider evaluation with CPK, ESR, and CRP. [1] Assessment/Plan DM type 2, goal HbA1c < 7.5% HTN, goal below 140/90 Hyperlipidemia LDL goal <100 52-year-old morbidly obese diabetic male transferred from [facility] yesterday for diagnosisof neck cellulitis. Patient started on IV antibiotics and ENT was consulted for further recommendations. Patient was seen and examined with Dr. Stephen Milligan. both CT of the neck and examination showed no signs of drainable abscess. Patient is already improving on IV antibiotics when compared to yesterday. Impression: Posterior neck cellulitis/folliculitis. Recommendations: From an ENT standpoint, no surgical intervention is needed as there is no abscess formation. We will continue to watch patient while he remains inpatient. May need another 24 to 48 hours of IV antibiotics. He should remain on IV vancomycin, would recommend chlorhexidine showers and topical Bactroban. Orders: mupirocin topical, Start: 12/05/22 9:57:00 EDT, Dose = 1 merlene, Topical, BID, Apply to: neck, Ointment, 12/05/22 9:57:00 EDT Chlorhexadine Skin Prep/Scrub Problem List/Past Medical History Ongoing Abnormal chest x-ray Abnormal computed tomography angiography (CTA) Aortic arch atherosclerosis with tortuosity BMI 50.0-59.9, adult Cardiac enlargement, moderate Chronic knee pain Chronic venous insufficiency COPD with asthma Diabetic polyneuropathy DM type 2, goal HbA1c < 7.5% Edema of right lower leg Ejection fraction < 55% Encounter for screening colonoscopy Hemorrhoids History of anemia History of pulmonary hypertension HTN, goal below 140/90 Hyperlipidemia LDL goal <100 Iron deficiency anemia Morbid obesity Non-smoker Obstructive sleep apnea on CPAP Osteoarthritis of multiple joints Pain in joint of left knee Pain of right lower extremity Portal hypertension syndrome PVD (peripheral vascular disease) Screening for prostate cancer Seasonal allergies Vitamin D deficiency Historical Increased BMI (body mass index) MRSA pneumonia Procedure/Surgical History Nerve conduction study: 04/11/17 Medications Inpatient Actos, 45 mg= 1 tab(s), Oral, qDay cefepime clopidogrel, 75 mg= 1 tab(s), Oral, qDay Diovan 320 mg oral tablet, 320 mg= 1 tab(s), Oral, qDay DuoNeb, 3 mL, Inhalation, q4hRT, PRN gabapentin, 400 mg= 1 cap(s), Oral, TID HumaLOG 100 units/mL subcutaneous solution, Give 0-10 units/dose, Subcutaneous, TIDAC Lantus, 25 unit(s)= 0.25 mL, Subcutaneous (INT), qHS Lovenox, 30 mg= 0.3 mL, Subcutaneous, q12h melatonin, 3 mg= 1 tab(s), Oral, qHS, PRN Norvasc, 5 mg= 1 tab(s), Oral, qDay Percocet 325/5, 1 tab(s), Oral, q4h, PRN Percocet 325/5, 2 tab(s), Oral, q4h, PRN rosuvastatin, 40 mg= 2 tab(s), Oral, qDay Tylenol, 650 mg= 2 tab(s), Oral, q4h, PRN vancomycin, 1750 mg= 500 mL, IV Piggyback, q12h Vancomycin - TROUGH reminder, 1 EA, Miscellaneous, Daily Victoza 18 mg/3 mL subcutaneous Pen, 1.8 mg= 0.3 mL, Subcutaneous, qDay Home Actos 45 mg oral tablet, 45 mg= 1 tab(s), Oral, qDay, 1 refills Blood Glucose Test Strips, See Instructions, 11 refills CeleBREX 200 mg oral capsule, 200 mg= 1 cap(s), Oral, qDay, 1 refills cholecalciferol 1250 mcg (50,000 intl units) oral capsule, 1250 mcg= 1 cap(s), Oral, qWeek, 1 refills clopidogrel 75 mg oral tablet, 75 mg= 1 tab(s), Oral, qDay, 1 refills Diovan 320 mg oral tablet, 320 mg= 1 tab(s), Oral, qDay, 1 refills, Not taking DME MISCellaneous, See Instructions DME MISCellaneous, See Instructions DME MISCellaneous, See Instructions doxycycline hyclate 100 mg oral capsule, 100 mg= 1 cap(s), Oral, BID EpiPen 2-Jamal 0.3 mg injectable kit, 0.3 mg, Subcutaneous, AsDirected, PRN, 1 refills ferrous sulfate 325 mg (65 mg elemental iron) oral tablet, 325 mg= 1 tab(s), Oral, qDay, 1 refills gabapentin 400 mg oral capsule, 400 mg= 1 cap(s), Oral, TID Lancets, See Instructions, 11 refills Lantus Solostar Pen 100 units/mL 3 mL Pen, 50 unit(s), Subcutaneous, BID, 1 refills Lasix 20 mg oral tablet, 20 mg= 1 tab(s), Oral, qDay, 1 refills, Not taking levocetirizine 5 mg oral tablet, 5 mg= 1 tab(s), Oral, qHS, 1 refills Mucinex 600 mg oral tablet, extended release, 600 mg= 1 tab(s), Oral, q12h, 5 refills Norvasc 5 mg oral tablet, 5 mg= 1 tab(s), Oral, qDay, 1 refills NovoLOG 100 units/mL injectable solution, 10 unit(s), Subcutaneous, BID NovoLOG FlexPen 100 units/mL injectable solution, 28 unit(s), Subcutaneous, TIDAC, 1 refills, Not taking Pen needles 8 mm, See Instructions, 3 refills ProAir HFA MDI (90 mcg/inh) inhalation aerosol, 2 puff(s), Inhalation, q6h, PRN, 6 refills rosuvastatin 40 mg oral tablet, 40 mg= 1 tab(s), Oral, qDay, 1 refills Stiolto Respimat 60 ACT 2.5 mcg-2.5 mcg/inh inhalation aerosol, 2 puff(s), Inhalation, q24h, 5 refills Victoza 18 mg/3 mL subcutaneous Pen, 1.8 mg, Subcutaneous, qDay, 1 refills Allergies Bee Stings (Unknown) [place] Prefilled Pen ([place] sick) SMZ-TMP DS (Rash) amoxicillin (amoxicillin) metFORMIN (Diarrhea) penicillin (Drowsiness) Social History Alcohol Use: Past., 10/26/2018 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 Lung cancer: Mother. Immunizations No qualifying data available. [1] CT Soft Tissue Neck w/ Contrast; EDMUND CHIANG DO 12/04/2022 11:56 EDT Digitally Signed by LIBERTAD PAYNE PA-C on 12/05/2022 10:01 AM Digitally Signed by STEPHEN MILLIGAN MD [facility] [id number] NoteSINUS TACHYCARDIA RIGHT BUNDLE BRANCH BLOCK INFERIOR INFARCT, OLD Electronic Signature: SADIQ CHU MD 12/05/2022 17:15:57[facility] 09-17-2023 History and physical note Date of Service December 04, 2022 Chief Complaint Neck swelling/abscess History of Present Illness A 52 years old male with past medical history significant for morbid obesity, obstructive sleep apnea treated with BiPAP at night, GERD, tobacco use, TIA, hypertension, type 2 diabetes mellitus on insulin at home, tobacco use was transferred from [facility] with a concern for neck abscesses and cellulitis. Patient stated that he has had swelling in the back of his neck and left lateral neck going on for the past week or so associated with pain and tenderness. He was placed on outpatient doxycycline butthat did not improve his neck swellings. On examination does look like superficial abscesses, the larger one is in the posterior midline, smaller one is on the left lateral neck, did see yellowish puslike material at the center of swellings. Vital signs on admission demonstrated fever and tachycardia with temperature as high as 38.6 C. Labs done at [facility] showed white count of 17,200 with left shift, hyperglycemia with blood glucoseof 321. CT soft tissue neck on admission demonstrated cellulitic changes of subcutaneous suboccipital and posterior left upper neck regions, underlying posterior margin of left SCM is enlarged/edematous raising suspicion for underlying infectious/inflammatory or reactive myositis. EKG pending at the time of this dictation. Review of Systems Review of systems are negative except as mentioned in HPI Physical Exam Vitals and Measurements T: 37.2 C (Oral) HR: 107(Apical) RR: 18 BP: 161/105 SpO2: 96% HT: 167.6 cm WT: 152.6 kg BMI: 54.33 Weight Dosing Weight: 152.6 kg (12/04/22) General Appearance: Morbidly obese male in no apparent distress Head: Atraumatic and normocephalic EENT: EOMI, PERRLA, no oropharyngeal erythema, no tonsillar exudates, no conjunctival injection. sclera anicteric. Neck: Did have large swelling in the posterior midline that seems to be fluctuant/erythematous/tender, small swelling in the left lateral neck with similar features, yellowish puslike material at thecenter of the swellings. Cardiac: S1 and S2 normal. RRR. No murmurs, rubs, or gallops. No JVD. No hepatojugular reflex. Lungs: Good air entry bilaterally. No increased work for breathing. No wheezes, rhonchi, or rales. Abdomen: Soft, nontender, nondistended. Normoactive bowel sounds. No rebound or guarding. Negative Melchor's sign. No hepatosplenomegaly. Musculoskeletal: Full range of motion upper and lower extremities. No CVA tenderness. Extremities: Trace to 1 positive lower extremity edema Neurological: No gross motor deficits Skin: Swellings as described in the neck exam Psychiatric: Alert and oriented, well groomed, euthymic. cooperative Lab Results WBC: 17.2 10^3/mcL High (12/04/22 10:58:00) RBC: 5.54 10^6/mcL (12/04/22 10:58:00) Hgb: 15.9 G/dL (12/04/22 10:58:00) Hct: 46.5 % (12/04/22 10:58:00) MCV: 83.9 fL (12/04/22 10:58:00) MCH: 28.7 pg (12/04/22 10:58:00) MCHC: 34.2 G/dL (12/04/22 10:58:00) RDW: 14.1 % (12/04/22 10:58:00) Platelet: 255 10^3/mcL (12/04/22 10:58:00) MPV: 9.1 fL (12/04/22 10:58:00) Monocyte Distribution Width: 21.11 High (12/04/22 10:58:00) Neutrophil %: 87.5 % High (12/04/22 10:58:00) Lymphocyte %: 5.8 % Low (12/04/22 10:58:00) Monocyte %: 5.2 % (12/04/22 10:58:00) Eosinophil %: 0.9 % (12/04/22 10:58:00) Basophil %: 0.6 % (12/04/22 10:58:00) Neutrophil, Absolute: 15 10^3/mcL High (12/04/22 10:58:00) Lymphocyte, Absolute: 1 10^3/mcL (12/04/22 10:58:00) Monocyte, Absolute: 0.9 10^3/mcL (12/04/22 10:58:00) Eosinophil, Absolute: 0.1 10^3/mcL (12/04/22 10:58:00) Basophil, Absolute: 0.1 10^3/mcL (12/04/22 10:58:00) Glucose Level: 321 mg/dL High (12/04/22 10:58:00) Sodium Level: 137 mmol/L (12/04/22 10:58:00) Potassium Level: 4.5 mmol/L (12/04/22 10:58:00) Chloride: 99 mmol/L (12/04/22 10:58:00) CO2: 29 mmol/L (12/04/22 10:58:00) Electrolyte Balance: 9 mEq/L (12/04/22 10:58:00) BUN: 13 mg/dL (12/04/22 10:58:00) Creatinine Lvl (s): 0.95 mg/dL (12/04/22 10:58:00) BUN/Creatinine Ratio: 14 ratio (12/04/22 10:58:00) Calcium Lvl: 9.2 mg/dL (12/04/22 10:58:00) GFR Non-: 83 ml/min/1.73sqm (12/04/22 10:58:00) GFR : 101 ml/min/1.73sqm (12/04/22 10:58:00) Blood Glucose, Capillary: 208 mg/dL High (12/04/22 17:06:00) Imaging Results and Diagnostics CT soft tissue neck as above EKG EKG pending Assessment/Plan Neck abscesses: 2 abscesses in the neck area as described in HPI Will likely need incision and drainage, failure outpatient antibiotics Blood cultures ordered, broad-spectrum antibiotics ordered including cefepime vancomycin ENT consulted Cellulitis of soft tissue of neck: Cellulitic changes of subcutaneous tissues as described in CT soft tissue neck in HPI Patient is on broad-spectrum antibiotics including cefepime and Vanco blood cultures have been ordered Hyperglycemia: Blood sugar of 321 at [place] ER, did receive insulin regular 8 units IV, blood sugar in 200s on arrival at [facility] Type 2 diabetes mellitus: Insulin lispro sliding scale, insulin glargine scheduled, diabetic diet Morbid obesity: Likely complicating management, BMI 54 History of TIA: Resume home medication of Plavix, statin added Hypertension: Resume home medication of amlodipine and valsartan Obstructive sleep apnea: BiPAP as at home Bilateral lower extremity swelling: Trace to 1 positive edema in bilateral lower extremities Order venous Doppler of lower extremity to evaluate for DVT DVT prophylaxis: Lovenox 30 mg subcutaneous twice daily Note was written using [employer] hide and skin classer software. Some of the meaning of the words and sentences might have changed during hide and skin classer, if there was ever some confusion about the meaning of some sentences, please do not hesitate to contact me. Problem List/Past Medical History Ongoing Abnormal chest x-ray Abnormal computed tomography angiography (CTA) Aortic arch atherosclerosis with tortuosity BMI 50.0-59.9, adult Cardiac enlargement, moderate Chronic knee pain Chronic venous insufficiency COPD with asthma Diabetic polyneuropathy DM type 2, goal HbA1c < 7.5% Edema of right lower leg Ejection fraction < 55% Encounter for screening colonoscopy Hemorrhoids History of anemia History of pulmonary hypertension HTN, goal below 140/90 Hyperlipidemia LDL goal <100 Iron deficiency anemia Morbid obesity Non-smoker Obstructive sleep apnea on CPAP Osteoarthritis of multiple joints Pain in joint of left knee Pain of right lower extremity Portal hypertension syndrome PVD (peripheral vascular disease) Screening for prostate cancer Seasonal allergies Vitamin D deficiency Historical Increased BMI (body mass index) MRSA pneumonia Procedure/Surgical History Nerve conduction study: 04/11/17 Medications Home Medications (26) Active Actos 45 mg oral tablet 45 mg = 1 tab(s), Oral, qDay Blood Glucose Test Strips See Instructions CeleBREX 200 mg oral capsule 200 mg = 1 cap(s), Oral, qDay cholecalciferol 1250 mcg (50,000 intl units) oral capsule 1,250 mcg = 1 cap(s), Oral, qWeek clopidogrel 75 mg oral tablet 75 mg = 1 tab(s), Oral, qDay Diovan 320 mg oral tablet 320 mg = 1 tab(s), Oral, qDay DME MISCellaneous See Instructions DME MISCellaneous See Instructions DME MISCellaneous See Instructions doxycycline hyclate 100 mg oral capsule 100 mg = 1 cap(s), Oral, BID EpiPen 2-Jamal 0.3 mg injectable kit 0.3 mg, PRN, Subcutaneous, AsDirected ferrous sulfate 325 mg (65 mg elemental iron) oral tablet 325 mg = 1 tab(s), Oral, qDay gabapentin 400 mg oral capsule 400 mg = 1 cap(s), Oral, TID Lancets See Instructions Lantus Solostar Pen 100 units/mL 3 mL Pen 50 unit(s), Subcutaneous, BID Lasix 20 mg oral tablet 20 mg = 1 tab(s), Oral, qDay levocetirizine 5 mg oral tablet 5 mg = 1 tab(s), Oral, qHS Mucinex 600 mg oral tablet, extended release 600 mg = 1 tab(s), Oral, q12h Norvasc 5 mg oral tablet 5 mg = 1 tab(s), Oral, qDay NovoLOG 100 units/mL injectable solution 10 unit(s), Subcutaneous, BID NovoLOG FlexPen 100 units/mL injectable solution 28 unit(s), Subcutaneous, TIDAC Pen needles 8 mm See Instructions ProAir HFA MDI (90 mcg/inh) inhalation aerosol 2 puff(s), PRN, Inhalation, q6h rosuvastatin 40 mg oral tablet 40 mg = 1 tab(s), Oral, qDay Stiolto Respimat 60 ACT 2.5 mcg-2.5 mcg/inh inhalation aerosol 2 puff(s), Inhalation, q24h Victoza 18 mg/3 mL subcutaneous Pen 1.8 mg, Subcutaneous, qDay Allergies Bee Stings (Unknown) Byetta Prefilled Pen ([place] sick) SMZ-TMP DS (Rash) amoxicillin (amoxicillin) metFORMIN (Diarrhea) penicillin (Drowsiness) Social History Alcohol Use: Past., 10/26/2018 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 Lung cancer: Mother. Immunizations No qualifying data available. Code Status Code Status - Ordered -- 12/04/22 18:19:00 EDT, Full Code, Constant Order Digitally Signed by PHOEBE BROWN MD on 12/04/2022 06:36 PM [id number] Note ORIGINAL EXAMINATION: CT OF THE NECK SOFT TISSUE WITH CONTRAST 12/04/2022 TECHNIQUE: CT of the neck was performed with the administration of intravenous contrast. Multiplanar reformatted images are provided for review. Automated exposure control, iterative reconstruction, and/or weight based adjustment of the mA/kV was utilized to reduce the radiation dose to as low as reasonably achievable. COMPARISON: None. HISTORY: ORDERING SYSTEM PROVIDED HISTORY: Reason for Exam: abscesses Possible bug bite or abscess on back of neck, history of hypertension FINDINGS: Metal streak artifacts from dental hardware and quantum mottle from body habitus obscure some details. PHARYNX/LARYNX: No abnormal masslike or abscess enhancement of aero digestive structures. SALIVARY GLANDS/THYROID: Mild thyromegaly. Normal parotid and submandibular glands. LYMPH NODES: No abnormal pathologically enlarged, calcified, or cystic/necrotic lymphadenopathy. VASCULAR: Normal vascular contrast opacification. Larger artery calcifications are present. Retropharyngeal ICA courses. SOFT TISSUES: Suboccipital skin thickening and subcutaneous fat stranding with similar involvement over the left upper neck posterior to the elongated and edematous/enlarged SCM. No discrete fluid collection. BRAIN/ORBITS: Unremarkable imaged intracranial and intraorbital structures. SINUSES/MASTOID AIR CELLS: Clear imaged paranasal sinuses and mastoid air cells. Bilateral middle leonarda bullosa and paradoxical turns. LUNG APICES/SUPERIOR MEDIASTINUM: No focal consolidation of imaged upper lungs. No superior mediastinal lymphadenopathy. Normal imaged trachea. BONES: No aggressive appearing lytic or blastic bony lesion. Several maxillary mandibular teeth are missing. Degenerative spine. IMPRESSION: Cellulitic changes of the subcutaneous suboccipital and posterior left upper neck regions. The underlying posterior margin of the left SCM is enlarged/edematous, raising suspicion for underlying infectious/inflammatory or reactive myositis. No discrete fluid collection to suggest abscess. Consider evaluation with CPK, ESR, and CRP. Interpreted by: Edmund Chiang DO Preliminary Report By: Edmund Chiang DO Electronically signed By Edmund Chiang DO Dictated Date: 12/04/2022 12:05:37 PM Prelim Date: 12/04/2022 12:12:41 PM Sign Date: 12/04/2022 12:12:41 PM Ordering Provider: [facility]04-25-[address] Vimal [facility] July 12, 2022 7:44am Note Date/Time July 12, 2022 7:4 5am [facility] Medical Records Department [address] [place] [address] Telemedicine Confirmation Receipt 07/12/22 MR#: [id number] Acct: [id number] Name: SEUN VELASCO Rep #:[id number] : 1970 51 From: Aspen Celis DO PCP: JAYDEN Smith tus:ADM ИРИНА [facility] has confirmed receipt of a request for visit. This document confirms receipt of the order initiating the consult. To find the results of the consultation, please view the patient's reports for the scanned Telemed Consult. [facility] Work Phone: [phone]) 418-239604-25-2023 History and physical note Author Dr. Cristina [facility] July 11, 2022 10:27pm Note Date/Time July 11, 2022 7:3 9pm [facility] Medical Records Department [address] [place] [address] H&P Exam - Hospitalist 07/11/221938 MR#: [id number] Acct: [id number] Name: SEUN VELASCO Rep #:[id number] : 1970 51 From: Ravin Cristina MD PCP: JAYDEN Smith tus:ADM ИРИНА Location: [place] [address] HPI - General General Date of Admission: 07/11/22 Date of Service: 07/11/22 Chief Complaint: Numbness and Tingling HPI Narrative SEUN VELASCO, is a 51 M with a significant history of hypertension, obstructive sleep apnea on home BiPAP; morbid obesity and diabetes mellitus who presents emergency department with multiple episodes of numbness and tingling ofhis right side. The numbness and tingling involved his right foot and moves to his right leg. Also he has numbness and tingling of his right hand which moves to his proximal right forearm. He denies any weakness or any other symptoms. He denies changes in his speech. His symptoms started several hours on the day of presentation. His symptoms last a few seconds to about 1 minutes. At the emergency department he had about2 episodes of same symptoms. Reportedly about 4 months ago he had same symptomsbut that went away. [facility] Medical History Acute respiratory failure with hypoxia Anaphylactic reaction to bee sting BiPAP (biphasic positive airway pressure) dependence Diabetes mellitus, type 2 Essential hypertension Former tobacco use GERD (gastroesophageal reflux disease) Hyperlipidemia Hypoxia Morbid obesity MRSA bacteremia Obstructive sleep apnea NICHOLE treated with BiPAP Staphylococcal pneumonia Home Medications meclizine 25 mg tablet 25 mg PO 4X/DAY PRN PRN Dizziness 03/17/16 [History Last Taken Unknown] epinephrine 0.3 mg/0.3 mL injection, auto-injector 0.3 mg (0.3 mL) IM Q15M PRN anaphylaxis #2 ea 10/07/20 [Rx Last Taken Unknown] albuterol sulfate 90 mcg/actuation aerosol inhaler 2 puff inhalation Q6H PRN PRNShortness Of Breath 08/04/21 [History Last Taken Unknown] gabapentin 400 mg capsule 400 mg PO TID nerve pain 08/04/21 [History Last Taken Unknown] insulin aspart U-100 100 unit/mL (3 mL) subcutaneous pen (Novolog FlexPen U-100 Insulin aspart) 20 - 25 sliding scale dose subcut BID diabetes 08/04/21 [History Last Taken Unknown] levocetirizine 5 mg tablet 5 mg PO QHS sleep 08/04/21 [History Last Taken Unknown] valsartan 160 mg tablet 160 mg PO DAILY blood pressure 08/04/21 [History Last Taken Unknown] amlodipine 5 mg tablet 5 mg PO DAILY 30 days #30 tabs 08/10/21 [Rx Last Taken Unknown] atorvastatin 80 mg tablet 80 mg PO QHS 30 days #30 tabs 08/10/21 [Rx Last Taken Unknown] hydrochlorothiazide 12.5 mg capsule 12.5 mg PO DAILY 30 days #30 caps 08/10/21 [Rx Last Taken Unknown] tiotropium 2.5 mcg-olodaterol 2.5 mcg/actuation mist for inhalation (Stiolto Respimat) 2 puff inhalation DAILY asthma 09/13/21 [History Last Taken Unknown] fluticasone furoate 200 mcg/actuation blister powder for inhalation (Arnuity Ellipta) 1 inh inhalation QDAY #30 ea 05/13/22 [Rx Last Taken Unknown] insulin glargine-yfgn 100 unit/mL (3 mL) subcutaneous pen 50 unit subcut BID 07/11/22 [History Last Taken Unknown] Allergy/AdvReac Type Severity Reaction Status Date / Time bee venom protein (honey bee) Allergy Swelling Verified 07/11/22 14:47 Penicillins Allergy RASH/LONG Verified 07/11/22 14:47 TIME TO WAKE ME UP Family History Mother Lung cancer with associated tobacco use history. Father Heart disease CHF (congestive heart failure) Hypertension Surgical History History of appendectomy Social History household members: spouse Smoking Status: Former smoker how long ago did patient quit smoking: Quit 30-33 years prior, started 1.5 ppd at age 9. alcohol intake: never substance use type: does not use ROS ROS Narrative Pertinent positives and pertinent negatives as noted in HPI. All other systems were reviewed and are negative Vital Signs Vital Signs Vital Signs: 07/11/22 14:45 07/11/22 16:40 07/11/22 16:40 Temperature 98.1 F Temperature Source Temporal Pulse Rate 78 80 Respiratory Rate 18 18 Blood Pressure 171/96 H 142/76 H Blood Pressure Mean 121 98 Pulse Ox 100 97 Oxygen Delivery Method Room Air Room Air Room Air 07/11/22 16:44 07/11/22 18:10 Temperature Temperature Source Pulse Rate 77 83 Respiratory Rate 18 15 Blood Pressure 142/76 H 142/76 H Blood Pressure Mean 98 98 Pulse Ox 97 98 Oxygen Delivery Method Room Air Room Air Weight Weight: 178.307 kg Body Mass Index (BMI) 63.4 Physical Exam Narrative Physical exam: General: Well-nourished, well-developed. Head: Normocephalic, atraumatic, no tenderness Eyes: Vision is grossly intact. EOMI ENT, no trauma, moist mucous membranes, no rhinorrhea Neck: Nontender, No thyromegaly. CVS: Regular rate and rhythm. S1-S2 present. No murmur, gallop or rub. Respiratory : clear to auscultation bilaterally, chest wall nontender Abdomen: Soft, nontender, nondistended, normal bowel sounds, no masses : Deferred Back: Nontender, no CVA tenderness, no midline spinal tenderness, deformities, step-offs Extremities: Nontender full range of motion, no trauma Skin: Normal color, no trauma, abrasions Neuro: Alert, oriented, cranial nerves II through XII grossly intact. Psychiatry: Normal mood. Normal affect. Not depressed. Not anxious. Results Lab / Micro Data Result Diagrams: 07/11/22 17:30 07/11/22 17:30 Labs: Laboratory Results - last 24 hr 07/11/22 15:49: POC Glucose 133 H 07/11/22 17:30: WBC 7.5, RBC 5.32, Hgb 15.1, Hct 46.8, MCV 88.0, MCH 28.4, MCHC 32.3, RDW Std Deviation 42.4, RDW Coeff of Anna 13.2, Plt Count 320, MPV 10.4, Immature Gran % (Auto) 0.500, Neut % (Auto) 72.4 H, Lymph % (Auto) 20.3, [place] % (Auto) 5.2, Eos % (Auto) 0.9, Baso % (Auto) 0.7, Absolute Neuts (auto) 5.5, Absolute Lymphs (auto) 1.53, Nucleated RBC % 0 07/11/22 17:30: PT Cancelled, INR Cancelled, APTT Cancelled 07/11/22 17:30: Sodium 136, Potassium 3.9, Chloride 104, Carbon Dioxide 32.0, Anion Gap 0 L, BUN 13, Creatinine 0.84, Est GFR (MDRD) Af Amer 123, Est GFR (MDRD) Non-Af 101, BUN/Creatinine Ratio 15.4, Glucose 185 H, Calcium 9.4, Troponin I High Sens 8 07/11/22 18:10: PT 13.6, INR 1.1, APTT 26.[address] 07/11/22 16:40 IMPRESSION: Negative Brain CT without contrast. Electronically Signed: Carson Fajardo DO at 18:02 EDT Reading Location ID and State: [facility] / [place] Tel [phone], Service support , ADDENDUM: 07/11/22 1827 IMPRESSION: Negative Brain CT without contrast. N.B. : The above Results were Read Back by Carson Fajardo DO to Nelson Hurley MD, and understanding confirmed on 07/11/2022 18:20:12 (ET). Electronically Signed: Carson Fajardo DO at 18:02 EDT , Head/Neck CTA 07/11/22 16:41 IMPRESSION: Approximately 50% luminal narrowing at the cavernous portion of the right internal carotid artery. No aneurysm or dissection. N.B. : The above Results were Read Back by Carson Fajardo DO to NELSON HURLEY and understanding confirmed on 07/11/2022 18:20:18 (ET). Electronically Signed: Carson Fajardo DO at 18:21 EDT , ADDENDUM: 07/11/22 1828 IMPRESSION: Approximately 50% luminal narrowing at the cavernous portion of the right internal carotid artery. No aneurysm or dissection. N.B. : The above Results were Read Back by Carson Fajardo DO to NELSON HURLEY and understanding confirmed on 07/11/2022 18:20:18 (ET). Electronically Signed: Carson Fajardo DO at 18:21 EDT , Chest X-Ray 07/11/22 17:36 IMPRESSION: No radiographic evidence of acute cardiopulmonary disease. Electronically Signed: Carson Fajardo DO at 18:45 EDT , Assessment & Plan Assessment/Plan (1) Brain TIA: (2) Numbness and tingling: (3) Morbid obesity: (4) History of diabetes mellitus, type II: (5) Essential hypertension: PLAN: Plan Numbness and tingling the right side NIH at the emergency department was 0, patient was not a candidate of tPA. Serial NINDS NIH Scale ordered Impression of head CT by radiology: Negative brain CT without count Upon my personal head CT image review: I agree with radiologist interpretation Head/neck CTA with approximately 50% luminal narrowing at the cavernous portion of the right internal carotid artery per radiologist interpretation. This does not explain patient's symptoms. Lipid profile and A1c ordered. Physical therapy to evaluate patient. N.p.o. until bedside swallow eval. Daily aspirin. Home statin continued Permissive hypertension. Control blood pressure with labetalol for systolic blood pressure of more than 220 or diastolic blood pressure of more than 120. MRI of brain ordered Echocardiogram ordered. Home gabapentin continued Hypertension Blood pressure is not within goal Home blood pressure held secondary to permissive hypertension. Trend blood pressure Diabetes mellitus Patient with hyperglycemia on presentation Monitor Accu-Cheks Correction scale insulin ordered. Morbid Obesity: BMI: 57.2 kg/m?. Complicates care. Lifestyle modification recommended. DVT prophylaxis: SCDs ordered Charges/Coding Visit Charges Inpatient E&M: 03548 Init Hosp L3 07/11/222226 <Electronically signed by Ravin Cristina MD> Cosigner Signature (if applicable): CC: JAYDEN Cummins; Dr. Ravin Cristina MD~ Signed [facility] Work Phone: [phone]) 921-822704-24-[address] Hurley [facility] July 11, 2022 7:20pm Note Date/Time July 11, 2022 4:5 4pm [facility] Medical Records Department [address] [place] [address] Emergency Department Summary 07/11/22 MR#: [id number] Acct: [id number] Name: SEUN VELASCO Rep #:[id number] : 1970 51 From: Nelson Hurley MD PCP: JAYDEN Smith tus:REG ER Location: ED HPI History of Present Illness Chief Complaint: Numb/Ting Informant: patient Narrative Narrative: Patient presents with numbness tingling in his right foot. He states this started about 9 or 930 this morning. He thought it was a very tight ROSS hose that were on. He removed these. He thinks that might have gotten it better butis not completely sure if that was the cause of it getting better. But shortly after this he had tingling in his hand. His symptoms really were not above the ankle or wrist. But they did occurred about the same time. He had no tight structures on his arm. He had no headache. No speech or vision or balance issues. He had an episode of this about 4 months ago that resolved and he was never seen for. Patient has never had stroke or stroke type symptoms. But he does have a known history of an enlarged heart. He also type 2 diabetes, highblood pressure, he said he and unclear if he has had cholesterol problems or not. It sounds like the patient does not take his meds really well. He is tells me he takes his high blood pressure meds every day but he had not taken itfor few days and he figured he ought to take it today in case he had to go see his doctor so his blood pressure was better. No prior work-up for TIA or stroke. He states other than that tingling he felt fine. It lasted for maybe half an hour or so and went away. While I was in the room he started to get it back in both the hand and the foot. He repositioned himself in the foot improved. He then was shaking the hand fora few minutes and it resolved. Even during the symptoms his NIH was still 0. He still had sensation he states it just felt numb and sort of tingling. It felt like it was asleep is what he told me. [facility] Medical History Acute respiratory failure with hypoxia Anaphylactic reaction to bee sting BiPAP (biphasic positive airway pressure) dependence Diabetes mellitus, type 2 Essential hypertension Former tobacco use GERD (gastroesophageal reflux disease) Hyperlipidemia Hypoxia Morbid obesity MRSA bacteremia Obstructive sleep apnea NICHOLE treated with BiPAP Staphylococcal pneumonia Home Medications meclizine 25 mg tablet 25 mg PO 4X/DAY PRN PRN Dizziness 03/17/16 [History Last Taken Unknown] epinephrine 0.3 mg/0.3 mL injection, auto-injector 0.3 mg (0.3 mL) IM Q15M PRN anaphylaxis #2 ea 10/07/20 [Rx Last Taken Unknown] albuterol sulfate 90 mcg/actuation aerosol inhaler 2 puff inhalation Q6H PRN PRNShortness Of Breath 08/04/21 [History Last Taken Unknown] gabapentin 400 mg capsule 400 mg PO TID nerve pain 08/04/21 [History Last Taken Unknown] guaifenesin 600 mg tablet, extended release 12 hr (Mucus Relief ER) 600 mg PO Q12H PRN PRN Cough 08/04/21 [History Last Taken Unknown] insulin aspart U-100 100 unit/mL (3 mL) subcutaneous pen (Novolog FlexPen U-100 Insulin aspart) 20 - 25 sliding scale dose subcut BID diabetes 08/04/21 [History Last Taken Unknown] levocetirizine 5 mg tablet 5 mg PO QHS sleep 08/04/21 [History Last Taken Unknown] valsartan 160 mg tablet 160 mg PO DAILY blood pressure 08/04/21 [History Last Taken Unknown] amlodipine 5 mg tablet 5 mg PO DAILY 30 days #30 tabs 08/10/21 [Rx Last Taken Unknown] atorvastatin 80 mg tablet 80 mg PO QHS 30 days #30 tabs 08/10/21 [Rx Last Taken Unknown] benzonatate 100 mg capsule 200 mg PO TID PRN cough 7 days #21 caps 08/10/21 [Rx Last Taken Unknown] hydrochlorothiazide 12.5 mg capsule 12.5 mg PO DAILY 30 days #30 caps 08/10/21 [Rx Last Taken Unknown] insulin glargine-yfgn 100 unit/mL (3 mL) subcutaneous pen 90 unit (0.9 mL) subcut QHS 30 days #27 mL 08/10/21 [Rx Last Taken Unknown] insulin lispro 100 unit/mL subcutaneous pen (Humalog KwikPen (U-100) Insulin) 30unit (0.3 mL) subcut TIDAC 30 days #27 mL 08/10/21 [Rx Last Taken Unknown] linezolid 600 mg tablet 600 mg PO Q12H 12 days #24 tabs 08/10/21 [Rx Last Taken Unknown] tiotropium 2.5 mcg-olodaterol 2.5 mcg/actuation mist for inhalation (Stiolto Respimat) 2 puff inhalation DAILY 09/13/21 [History Last Taken Unknown] fluticasone furoate 200 mcg/actuation blister powder for inhalation (Arnuity Ellipta) 1 inh inhalation QDAY #30 ea 05/13/22 [Rx Last Taken Unknown] Allergy/AdvReac Type Severity Reaction Status Date / Time bee venom protein (honey bee) Allergy Swelling Verified 07/11/22 14:47 Penicillins Allergy RASH/LONG Verified 07/11/22 14:47 TIME TO WAKE ME UP Family History Mother Lung cancer with associated tobacco use history. Father Heart disease CHF (congestive heart failure) Hypertension Surgical History History of appendectomy Social History household members: spouse Smoking Status: Former smoker how long ago did patient quit smoking: Quit 30-33 years prior, started 1.5 ppd at age 9. alcohol intake: never substance use type: does not use ROS ROS ED Constitutional Constitutional ED: Denies chills or fever(s) Eyes Eyes: Denies blurry vision, change in vision or diplopia ENT ENT ED: Denies rhinorrhea Cardiovascular Cardiovascular: Denies chest pain, palpitations or racing heartbeat Respiratory/Chest Respiratory/Chest: Denies cough or dyspnea Gastrointestinal Gastrointestinal: Denies nausea or vomiting Genitourinary Genitourinary ED: Denies hematuria Musculoskeletal Musculoskeletal: Denies back pain, myalgias or neck pain Integumentary Denies rash Neurologic Neurologic: Reports paresthesias; Denies headache(s) or weakness Endocrine Endocrinology: Denies polydipsia or polyuria Hematologic/Lymphatic Hematologic/Lymphatic: Denies easy bleeding or easy bruising Allergic/Immunologic Allergic/Immunologic ED: Denies urticaria EXAM Physical Exam Narrative Exam Narrative: Patient is awake alert. He is sitting on the edge of the bed. No acute distress. He carries on an easy fluid discussion although he is not the best informant for past history details. HEENT shows no facial droop numbness or rash. Neck is supple. No reproduction of the symptoms with neck motion. Lungs are clear bilaterally. Sats are 100% on room air showing no hypoxia. Heart sounds regular. I hear no ectopy. Does not sound like A-fib. Abdomen is obese but otherwise benign. Extremities do show some edema but not marked. He does have indentation where his ROSS hose were on both legs. Pulses are intact there is no sign of ischemic extremities. Neurologically he is awake alert appropriate. His NIH is 0. Even when he redevelops his symptoms of his right upper and lower extremity he still has sensation. He still has coordination and he still has strength. But he states that they feel asleep and they do not feel like his extremities at that time. This lasted for just a few minutes and then goes away. Const Vital Signs: 07/11/22 14:45 07/11/22 16:40 07/11/22 16:40 Temperature 98.1 F Temperature Source Temporal Pulse Rate 78 80 Respiratory Rate 18 18 Blood Pressure 171/96 H 142/76 H Blood Pressure Mean 121 98 Pulse Ox 100 97 Oxygen Delivery Method Room Air Room Air Room Air 07/11/22 16:44 07/11/22 18:10 Temperature Temperature Source Pulse Rate 77 83 Respiratory Rate 18 15 Blood Pressure 142/76 H 142/76 H Blood Pressure Mean 98 98 Pulse Ox 97 98 Oxygen Delivery Method Room Air Room Air MDM MDM MDM Narrative Medical decision making narrative: Patient was rechecked. He still asymptomatic now. Patient CBC is overall normal Patient's glucose was 1 3 9 electrolytes showed no marked abnormality. Glucose was high at 185. Coags were negative My independent interpretation of the patient's CT of the head shows no sign of acute bleeding or mass. Final reading of the CT of the head is negative for acute. CTA does show some narrowing but most prominently on the right side which would not likely be the source of his symptoms. However, this patient is obese diabetic hypertensive high cholesterol high risk for stroke and heart disease. He had an episode of this right-sided numbness tingling feeling about 4 months ago. He has now had 2 episodes today. Since itinvolves both the right upper and lower extremity with his risk factor I do feelthat this is a risk for TIA. I have hospitalist on page to discuss the case with them. Lab Data Labs: Laboratory Results - last 24 hr 07/11/22 07/11/22 07/11/22 15:49 17:30 17:30 WBC 7.5 RBC 5.32 Hgb 15.1 Hct 46.8 MCV 88.0 MCH 28.4 MCHC 32.3 RDW Std Deviation 42.4 RDW Coeff of Anna 13.2 Plt Count 320 MPV 10.4 Immature Gran % (Auto) 0.500 Neut % (Auto) 72.4 H Lymph % (Auto) 20.3 [place] % (Auto) 5.2 Eos % (Auto) 0.9 Baso % (Auto) 0.7 Absolute Neuts (auto) 5.5 Absolute Lymphs (auto) 1.53 Nucleated RBC % 0 PT Cancelled INR Cancelled APTT Cancelled Sodium Potassium Chloride Carbon Dioxide Anion Gap BUN Creatinine Est GFR (MDRD) Af Amer Est GFR (MDRD) Non-Af BUN/Creatinine Ratio Glucose Calcium Troponin I High Sens POC Glucose 133 H 07/11/22 07/11/22 17:30 18:10 WBC RBC Hgb Hct MCV MCH MCHC RDW Std Deviation RDW Coeff of Anna Plt Count MPV Immature Gran % (Auto) Neut % (Auto) Lymph % (Auto) [place] % (Auto) Eos % (Auto) Baso % (Auto) Absolute Neuts (auto) Absolute Lymphs (auto) Nucleated RBC % PT 13.6 INR 1.1 APTT 26.8 Sodium 136 Potassium 3.9 Chloride 104 Carbon Dioxide 32.0 Anion Gap 0 L BUN 13 Creatinine 0.84 Est GFR (MDRD) Af Amer 123 Est GFR (MDRD) Non-Af 101 BUN/Creatinine Ratio 15.4 Glucose 185 H Calcium 9.4 Troponin I High Sens 8 POC Glucose Radiography Diagnostic Testing: Clinical Impression(s) from Imaging Studies Brain CT 07/11/22 16:40 IMPRESSION: Negative Brain CT without contrast. Electronically Signed: Carson Fajardo DO at 18:02 EDT , ADDENDUM: 07/11/22 1827 IMPRESSION: Negative Brain CT without contrast. N.B. : The above Results were Read Back by Carson Fajardo DO to Nelson Hurley MD, and understanding confirmed on 07/11/2022 18:20:12 (ET). Electronically Signed: Carson Fajardo DO at 18:02 EDT , Head/Neck CTA 07/11/22 16:41 IMPRESSION: Approximately 50% luminal narrowing at the cavernous portion of the right internal carotid artery. No aneurysm or dissection. N.B. : The above Results were Read Back by Carson Fajardo DO to NELSON HURLEY and understanding confirmed on 07/11/2022 18:20:18 (ET). Electronically Signed: Carson Fajardo DO at 18:21 EDT , ADDENDUM: 07/11/22 1828 IMPRESSION: Approximately 50% luminal narrowing at the cavernous portion of the right internal carotid artery. No aneurysm or dissection. N.B. : The above Results were Read Back by Carson Fajardo DO to NELSON HURLEY and understanding confirmed on 07/11/2022 18:20:18 (ET). Electronically Signed: Carson Fajardo DO at 18:21 EDT , Chest X-Ray 07/11/22 17:36 IMPRESSION: No radiographic evidence of acute cardiopulmonary disease. Electronically Signed: Carson Fajardo DO at 18:45 EDT , EKG Initial EKG: Comments: My depend interpretation the patient's EKG done for possible dysrhythmia shows a sinus rhythm with PACs. No ventricular ectopy. There is some baseline variation. There is right bundle branch block. No acute ST elevation or depression consistent with acute infarct or ischemia. NJ interval was normal. The QRS duration is long 140 ms. QTc is relatively normal at 457 ms. Management Discussion w/another healthcare provider: Hospitalist Discharge Plan Dx/Rx/DC Orders Clinical Impression: Brain TIA, Morbid obesity, History of diabetes mellitus, type II, History of hypertension, Hx of hypercholesterolemia Disposition Disposition: Acute Care [facility] What to do if you have Problems For any increased pain, shortness of breath, bleeding, nausea or vomiting, chestpain, or any unexpected problems, contact your Primary Care Provider. Call [facility] ([phone]) or report to the closest Emergency Room. Call 911 if necessary. 07/11/221919 <Electronically signed by Nelson Hurley MD> Cosigner Signature (if applicable): CC: JAYDEN Cummins ~ Signed [facility] Work Phone: [phone] Hurley [facility] July 11, 2022 7:20pm Note Date/Time July 11, 2022 4:[address] [facility] Medical Records Department [address] [place] [address] Emergency Department Summary 07/11/22 MR#: [id number] Acct: [id number] Name: SEUN VELASCO Rep #:[id number] : 1970 51 From: Nelson Hurley MD PCP: JAYDEN Smith Sta tus:REG ER Location: ED HPI History of Present Illness Chief Complaint: Numb/Ting Informant: patient Narrative Narrative: Patient presents with numbness tingling in his right foot. He states this started about 9 or 930 this morning. He thought it was a very tight ROSS hose that were on. He removed these. He thinks that might have gotten it better butis not completely sure if that was the cause of it getting better. But shortly after this he had tingling in his hand. His symptoms really were not above the ankle or wrist. But they did occurred about the same time. He had no tight structures on his arm. He had no headache. No speech or vision or balance issues. He had an episode of this about 4 months ago that resolved and he was never seen for. Patient has never had stroke or stroke type symptoms. But he does have a known history of an enlarged heart. He also type 2 diabetes, highblood pressure, he said he and unclear if he has had cholesterol problems or not. It sounds like the patient does not take his meds really well. He is tells me he takes his high blood pressure meds every day but he had not taken itfor few days and he figured he ought to take it today in case he had to go see his doctor so his blood pressure was better. No prior work-up for TIA or stroke. He states other than that tingling he felt fine. It lasted for maybe half an hour or so and went away. While I was in the room he started to get it back in both the hand and the foot. He repositioned himself in the foot improved. He then was shaking the hand fora few minutes and it resolved. Even during the symptoms his NIH was still 0. He still had sensation he states it just felt numb and sort of tingling. It felt like it was asleep is what he told me. [facility] Medical History Acute respiratory failure with hypoxia Anaphylactic reaction to bee sting BiPAP (biphasic positive airway pressure) dependence Diabetes mellitus, type 2 Essential hypertension Former tobacco use GERD (gastroesophageal reflux disease) Hyperlipidemia Hypoxia Morbid obesity MRSA bacteremia Obstructive sleep apnea NICHOLE treated with BiPAP Staphylococcal pneumonia Home Medications meclizine 25 mg tablet 25 mg PO 4X/DAY PRN PRN Dizziness 03/17/16 [History Last Taken Unknown] epinephrine 0.3 mg/0.3 mL injection, auto-injector 0.3 mg (0.3 mL) IM Q15M PRN anaphylaxis #2 ea 10/07/20 [Rx Last Taken Unknown] albuterol sulfate 90 mcg/actuation aerosol inhaler 2 puff inhalation Q6H PRN PRNShortness Of Breath 08/04/21 [History Last Taken Unknown] gabapentin 400 mg capsule 400 mg PO TID nerve pain 08/04/21 [History Last Taken Unknown] guaifenesin 600 mg tablet, extended release 12 hr (Mucus Relief ER) 600 mg PO Q12H PRN PRN Cough 08/04/21 [History Last Taken Unknown] insulin aspart U-100 100 unit/mL (3 mL) subcutaneous pen (Novolog FlexPen U-100 Insulin aspart) 20 - 25 sliding scale dose subcut BID diabetes 08/04/21 [History Last Taken Unknown] levocetirizine 5 mg tablet 5 mg PO QHS sleep 08/04/21 [History Last Taken Unknown] valsartan 160 mg tablet 160 mg PO DAILY blood pressure 08/04/21 [History Last Taken Unknown] amlodipine 5 mg tablet 5 mg PO DAILY 30 days #30 tabs 08/10/21 [Rx Last Taken Unknown] atorvastatin 80 mg tablet 80 mg PO QHS 30 days #30 tabs 08/10/21 [Rx Last Taken Unknown] benzonatate 100 mg capsule 200 mg PO TID PRN cough 7 days #21 caps 08/10/21 [Rx Last Taken Unknown] hydrochlorothiazide 12.5 mg capsule 12.5 mg PO DAILY 30 days #30 caps 08/10/21 [Rx Last Taken Unknown] insulin glargine-yfgn 100 unit/mL (3 mL) subcutaneous pen 90 unit (0.9 mL) subcut QHS 30 days #27 mL 08/10/21 [Rx Last Taken Unknown] insulin lispro 100 unit/mL subcutaneous pen (Humalog KwikPen (U-100) Insulin) 30unit (0.3 mL) subcut TIDAC 30 days #27 mL 08/10/21 [Rx Last Taken Unknown] linezolid 600 mg tablet 600 mg PO Q12H 12 days #24 tabs 08/10/21 [Rx Last Taken Unknown] tiotropium 2.5 mcg-olodaterol 2.5 mcg/actuation mist for inhalation (Stiolto Respimat) 2 puff inhalation DAILY 09/13/21 [History Last Taken Unknown] fluticasone furoate 200 mcg/actuation blister powder for inhalation (Arnuity Ellipta) 1 inh inhalation QDAY #30 ea 05/13/22 [Rx Last Taken Unknown] Allergy/AdvReac Type Severity Reaction Status Date / Time bee venom protein (honey bee) Allergy Swelling Verified 07/11/22 14:47 Penicillins Allergy RASH/LONG Verified 07/11/22 14:47 TIME TO WAKE ME UP Family History Mother Lung cancer with associated tobacco use history. Father Heart disease CHF (congestive heart failure) Hypertension Surgical History History of appendectomy Social History household members: spouse Smoking Status: Former smoker how long ago did patient quit smoking: Quit 30-33 years prior, started 1.5 ppd at age 9. alcohol intake: never substance use type: does not use ROS ROS ED Constitutional Constitutional ED: Denies chills or fever(s) Eyes Eyes: Denies blurry vision, change in vision or diplopia ENT ENT ED: Denies rhinorrhea Cardiovascular Cardiovascular: Denies chest pain, palpitations or racing heartbeat Respiratory/Chest Respiratory/Chest: Denies cough or dyspnea Gastrointestinal Gastrointestinal: Denies nausea or vomiting Genitourinary Genitourinary ED: Denies hematuria Musculoskeletal Musculoskeletal: Denies back pain, myalgias or neck pain Integumentary Denies rash Neurologic Neurologic: Reports paresthesias; Denies headache(s) or weakness Endocrine Endocrinology: Denies polydipsia or polyuria Hematologic/Lymphatic Hematologic/Lymphatic: Denies easy bleeding or easy bruising Allergic/Immunologic Allergic/Immunologic ED: Denies urticaria EXAM Physical Exam Narrative Exam Narrative: Patient is awake alert. He is sitting on the edge of the bed. No acute distress. He carries on an easy fluid discussion although he is not the best informant for past history details. HEENT shows no facial droop numbness or rash. Neck is supple. No reproduction of the symptoms with neck motion. Lungs are clear bilaterally. Sats are 100% on room air showing no hypoxia. Heart sounds regular. I hear no ectopy. Does not sound like A-fib. Abdomen is obese but otherwise benign. Extremities do show some edema but not marked. He does have indentation where his ROSS hose were on both legs. Pulses are intact there is no sign of ischemic extremities. Neurologically he is awake alert appropriate. His NIH is 0. Even when he redevelops his symptoms of his right upper and lower extremity he still has sensation. He still has coordination and he still has strength. But he states that they feel asleep and they do not feel like his extremities at that time. This lasted for just a few minutes and then goes away. Const Vital Signs: 07/11/22 14:45 07/11/22 16:40 07/11/22 16:40 Temperature 98.1 F Temperature Source Temporal Pulse Rate 78 80 Respiratory Rate 18 18 Blood Pressure 171/96 H 142/76 H Blood Pressure Mean 121 98 Pulse Ox 100 97 Oxygen Delivery Method Room Air Room Air Room Air 07/11/22 16:44 07/11/22 18:10 Temperature Temperature Source Pulse Rate 77 83 Respiratory Rate 18 15 Blood Pressure 142/76 H 142/76 H Blood Pressure Mean 98 98 Pulse Ox 97 98 Oxygen Delivery Method Room Air Room Air MDM MDM MDM Narrative Medical decision making narrative: Patient was rechecked. He still asymptomatic now. Patient CBC is overall normal Patient's glucose was 1 3 9 electrolytes showed no marked abnormality. Glucose was high at 185. Coags were negative My independent interpretation of the patient's CT of the head shows no sign of acute bleeding or mass. Final reading of the CT of the head is negative for acute. CTA does show some narrowing but most prominently on the right side which would not likely be the source of his symptoms. However, this patient is obese diabetic hypertensive high cholesterol high risk for stroke and heart disease. He had an episode of this right-sided numbness tingling feeling about 4 months ago. He has now had 2 episodes today. Since itinvolves both the right upper and lower extremity with his risk factor I do feelthat this is a risk for TIA. I have hospitalist on page to discuss the case with them. Lab Data Labs: Laboratory Results - last 24 hr 07/11/22 07/11/22 07/11/22 15:49 17:30 17:30 WBC 7.5 RBC 5.32 Hgb 15.1 Hct 46.8 MCV 88.0 MCH 28.4 MCHC 32.3 RDW Std Deviation 42.4 RDW Coeff of Anna 13.2 Plt Count 320 MPV 10.4 Immature Gran % (Auto) 0.500 Neut % (Auto) 72.4 H Lymph % (Auto) 20.3 [place] % (Auto) 5.2 Eos % (Auto) 0.9 Baso % (Auto) 0.7 Absolute Neuts (auto) 5.5 Absolute Lymphs (auto) 1.53 Nucleated RBC % 0 PT Cancelled INR Cancelled APTT Cancelled Sodium Potassium Chloride Carbon Dioxide Anion Gap BUN Creatinine Est GFR (MDRD) Af Amer Est GFR (MDRD) Non-Af BUN/Creatinine Ratio Glucose Calcium Troponin I High Sens POC Glucose 133 H 07/11/22 07/11/22 17:30 18:10 WBC RBC Hgb Hct MCV MCH MCHC RDW Std Deviation RDW Coeff of Anna Plt Count MPV Immature Gran % (Auto) Neut % (Auto) Lymph % (Auto) [place] % (Auto) Eos % (Auto) Baso % (Auto) Absolute Neuts (auto) Absolute Lymphs (auto) Nucleated RBC % PT 13.6 INR 1.1 APTT 26.8 Sodium 136 Potassium 3.9 Chloride 104 Carbon Dioxide 32.0 Anion Gap 0 L BUN 13 Creatinine 0.84 Est GFR (MDRD) Af Amer 123 Est GFR (MDRD) Non-Af 101 BUN/Creatinine Ratio 15.4 Glucose 185 H Calcium 9.4 Troponin I High Sens 8 POC Glucose Radiography Diagnostic Testing: Clinical Impression(s) from Imaging Studies Brain CT 07/11/22 16:40 IMPRESSION: Negative Brain CT without contrast. Electronically Signed: Carson Fajardo DO at 18:02 EDT , ADDENDUM: 07/11/22 1827 IMPRESSION: Negative Brain CT without contrast. N.B. : The above Results were Read Back by Carson Fajardo DO to Nelson Hurley MD, and understanding confirmed on 07/11/2022 18:20:12 (ET). Electronically Signed: Carson Fajardo DO at 18:02 EDT , Head/Neck CTA 07/11/22 16:41 IMPRESSION: Approximately 50% luminal narrowing at the cavernous portion of the right internal carotid artery. No aneurysm or dissection. N.B. : The above Results were Read Back by Carson Fajardo DO to NELSON HURLEY and understanding confirmed on 07/11/2022 18:20:18 (ET). Electronically Signed: Carson Fajardo DO at 18:21 EDT , ADDENDUM: 07/11/221827 IMPRESSION: Approximately 50% luminal narrowing at the cavernous portion of the right internal carotid artery. No aneurysm or dissection. N.B. : The above Results were Read Back by Carson Fajardo DO to NELSON HURLEY and understanding confirmed on 07/11/2022 18:20:18 (ET). Electronically Signed: Carson Fajardo DO at 18:21 EDT , Chest X-Ray 07/11/22 17:36 IMPRESSION: No radiographic evidence of acute cardiopulmonary disease. Electronically Signed: Carson Fajardo DO at 18:45 EDT , EKG Initial EKG: Comments: My depend interpretation the patient's EKG done for possible dysrhythmia shows a sinus rhythm with PACs. No ventricular ectopy. There is some baseline variation. There is right bundle branch block. No acute ST elevation or depression consistent with acute infarct or ischemia. NJ interval was normal. The QRS duration is long 140 ms. QTc is relatively normal at 457 ms. Management Discussion w/another healthcare provider: Hospitalist Discharge Plan Dx/Rx/DC Orders Clinical Impression: Brain TIA, Morbid obesity, History of diabetes mellitus, type II, History of hypertension, Hx of hypercholesterolemia Disposition Disposition: Acute Care Hospital [facility] What to do if you have Problems For any increased pain, shortness of breath, bleeding, nausea or vomiting, chestpain, or any unexpected problems, contact your Primary Care Provider. Call [facility] ([phone]) or report to the closest Emergency Room. Call 911 if necessary. 07/11/221919 <Electronically signed by Nelson Hurley MD> Cosigner Signature (if applicable): CC: JAYDEN Cummins ~ Signed [facility] Work Phone: Discharge summary Author Dr. Celis [facility] July 12, 2022 4:55pm Note Date/Time July 12, 2022 4:1 0pm [facility] Medical Records Department [address] [place] [address] Discharge Summary 07/12/22 1609 MR#: [id number] Acct: [id number] Name: SEUN VELASCO Rep #:[id number] : 1970 51 From: Aspen Celis DO PCP: JAYDEN Smith Sta tus:ADM ИРИНА Location: [place] [address] Providers Date of Admission: 07/11/22 Date of Discharge: 07/12/22 Primary Care Physician: JAYDEN Smith Reason For Visit: NUMBNESS & TINGLING Diagnosis Discharge Diagnosis (1) Brain TIA: Status: Acute Code(s): G45.9 - Transient cerebral ischemic attack, unspecified (2) Numbness and tingling: Status: Acute Code(s): R20.0 - Anesthesia of skin; R20.2 - Paresthesia of skin (3) Morbid obesity: Status: Acute Code(s): E66.01 - Morbid (severe) obesity due to excess calories (4) History of diabetes mellitus, type II: Status: Acute Code(s): Z86.39 - Personal history of other endocrine, nutritional and metabolic disease (5) Essential hypertension: Status: Chronic Code(s): I10 - Essential (primary) hypertension Medications at Discharge Home Medications meclizine 25 mg tablet 25 mg PO 4X/DAY PRN PRN Dizziness 03/17/16 epinephrine 0.3 mg/0.3 mL injection, auto-injector 0.3 mg (0.3 mL) IM Q15M PRN anaphylaxis #2 ea 10/07/20 albuterol sulfate 90 mcg/actuation aerosol inhaler 2 puff inhalation Q6H PRN PRNShortness Of Breath 08/04/21 gabapentin 400 mg capsule 400 mg PO TID nerve pain 08/04/21 insulin aspart U-100 100 unit/mL (3 mL) subcutaneous pen (Novolog FlexPen U-100 Insulin aspart) 20 - 25 sliding scale dose subcut BID diabetes 08/04/21 levocetirizine 5 mg tablet 5 mg PO QHS sleep 08/04/21 valsartan 160 mg tablet 160 mg PO DAILY blood pressure 08/04/21 amlodipine 5 mg tablet 5 mg PO DAILY 30 days #30 tabs 08/10/21 atorvastatin 80 mg tablet 80 mg PO QHS 30 days #30 tabs 08/10/21 hydrochlorothiazide 12.5 mg capsule 12.5 mg PO DAILY 30 days #30 caps 08/10/21 tiotropium 2.5 mcg-olodaterol 2.5 mcg/actuation mist for inhalation (Stiolto Respimat) 2 puff inhalation DAILY asthma 09/13/21 fluticasone furoate 200 mcg/actuation blister powder for inhalation (Arnuity Ellipta) 1 inh inhalation QDAY #30 ea 05/13/22 insulin glargine-yfgn 100 unit/mL (3 mL) subcutaneous pen 50 unit subcut BID 07/11/22 aspirin 81 mg chewable tablet 81 mg PO BREAKFAST #0 tabs 07/12/22 atorvastatin 80 mg tablet 80 mg PO QHS #30 tabs 07/12/22 clopidogrel 75 mg tablet (Plavix) 75 mg PO DAILY #21 tabs 07/12/22 Hospital Course Operations None Procedures 2-D Echocardiogram, EKG and - (CT of the brain/CTA of the head and neck/chest x- ray) Summary of Care Provided Minutes Spent on Discharge: 38 Hospital Course: Mr. Velasco is a 51-year-old morbidly obese white male who presented to the emergency department yesterday afternoon with complaints of tingling and numbness in his right foot, leg and right arm/hand. It is started approximately 9 or 9:30 in the morning of presentation and he thought that the initial symptom was related to his ROSS hose being on too tight. He removed these and thinks it may have gotten some better but not completely sure if that was the cause of improving. Shortly following that he had tingling in his hand. His symptoms were not really above the ankle or the wrist. They did appear to occur at the same time but had no associated headache, speech or vision changes, balance changes or weakness in those extremities. He had an episode of this approximately 4 months ago that resolved and he was never seen for it. He has never had a previous stroke or TIA. He does have a history of hypertension, diabetes and hyperlipidemia. He also had episode earlier that day where he had almost presyncopal sensation and this has been happening on and off. He had notbeen taking his antihypertensive for few days prior to admission because he felthis blood pressure may be better. Initial CT of the brain was unremarkable. CTA of the head and neck showed approximately 50% luminal narrowing of the cavernous portion of the right internal carotid artery with no aneurysm or dissection and otherwise was unremarkable. He was admitted to the medical floorfor work-up for TIA. Echocardiogram was performed and showed an EF of 65% with no valvular abnormalities and no ASD was identified. Diastolic dysfunction was unable to be assessed based on poor quality of the study secondary to body habitus. Unfortunately, the patient was too broad to fit into our MRI. His antihypertensives were initially held to allow for some permissive hypertension with a concern for stroke/TIA. His blood pressure was markedly elevated so these were restarted. Cholesterol was obtained and he was found to have a totalcholesterol of 181 with an LDL of 120 and an HDL of 40. Triglycerides were 105. We did start him on 80 mg of atorvastatin as his ideal LDL would be less than 70 and with concern for TIA pleiotropic effects are noted at high dosing. He was maintained on aspirin and Plavix was added. Neurology evaluated the patientand recommended we continue this for 21 days and then transition back to aspirinalone. I have recommended outpatient follow-up with vascular to keep an eye on his carotid stenosis. Neurology referral was made and neurology did recommend an outpatient open MRI of the brain and possible cervical spine if able to obtain after discharge. We have ordered a 30 event monitor with concerns for possible TIA as well as concern for presyncopal events. This will be delivered to his house in the next 2 to 3 days and he was made aware of this and we did discuss the reason for this. Patient voiced understanding. His hemoglobin A1c was found to be 9.3. I have recommended he follow-up with his outpatient physician as he did feel that his blood sugars were improving for any adjustment in his insulin. Strict control would be beneficial with the above concerns and hisoverall medical issues. He was able to be discharged home in stable condition. Prescriptions were sent to his pharmacy for his new medications. 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 Appears comfortable General Appearance: cooperative, comfortable, well kempt and well developed Orientation / Consciousness: awake, oriented to person, oriented to place and oriented to time Exam Limitations: no limitations Nutritional Appearance: morbidly obese HEENT normocephalic, head/scalp atraumatic, hearing grossly normal bilaterally and moist oral mucous membranes HEENT Narrative: Mallampati 3-4, dentition is fair for age, no thrush Eyes PERRL, EOMs intact bilaterally and conjunctivae normal Eyes Narrative: No scleral icterus Neck no lymphadenopathy, supple and no JVD Neck Narrative: Trachea midline, no thyroid enlargement, neck is short and thick Resp normal respiratory effort, no retractions, no use of accessory muscles and clearto auscultation bilaterally Auscultation: Negative for rales, rhonchi or wheezes Cardio regular rate, regular rhythm, S1 normal heart sound, S2 normal heart sound, no murmurs, no rub and no gallops Cardio Narrative: Distant secondary to body habitus GI normal to inspection, nondistended, normoactive bowel sounds, soft to palpation and non-tender Extremity Extremity Narrative: Trace bilateral lower extremity venous stasis edema, no cyanosis or clubbing Skin no rashes or lesions noted, no wounds, skin turgor normal and no jaundice Skin Narrative: Bilateral lower extremity skin changes consistent with chronic venous stasis Neuro oriented x3, CN's II-XII intact bilaterally, moves all extremities, no focal motor deficits and no sensory deficits noted Sensorium / Orientation: awake, alert, oriented to person, oriented to place andoriented to time Coordination / Balance: [id number] test normal Speech: speech normal Motor Exam: strength 5/5 throughout Psych affect normal Psych Narrative: Pleasant and appropriately interactive Weight / BMI Weight Weight: 160.8 kg Body Mass Index (BMI) 57.2 ABG / Lab / Microbiology Data Result Diagrams: 07/12/22 05:28 07/12/22 05:28 Laboratory: Laboratory Results - last 24 hr 07/11/22 15:49: POC Glucose 133 H 07/11/22 17:30: WBC 7.5, RBC 5.32, Hgb 15.1, Hct 46.8, MCV 88.0, MCH 28.4, MCHC 32.3, RDW Std Deviation 42.4, RDW Coeff of Anna 13.2, Plt Count 320, MPV 10.4, Immature Gran % (Auto) 0.500, Neut % (Auto) 72.4 H, Lymph % (Auto) 20.3, [place] % (Auto) 5.2, Eos % (Auto) 0.9, Baso % (Auto) 0.7, Absolute Neuts (auto) 5.5, Absolute Lymphs (auto) 1.53, Nucleated RBC % 0 07/11/22 17:30: PT Cancelled, INR Cancelled, APTT Cancelled 07/11/22 17:30: Sodium 136, Potassium 3.9, Chloride 104, Carbon Dioxide 32.0, Anion Gap 0 L, BUN 13, Creatinine 0.84, Est GFR (MDRD) Af Amer 123, Est GFR (MDRD) Non-Af 101, BUN/Creatinine Ratio 15.4, Glucose 185 H, Calcium 9.4, Troponin I High Sens 8 07/11/22 18:10: PT 13.6, INR 1.1, APTT 26.8 07/11/22 21:21: POC Glucose 182 H 07/12/22 05:28: WBC 7.1, RBC 5.12, Hgb 14.4, Hct 45.5, MCV 88.9, MCH 28.1, MCHC 31.6 L, RDW Std Deviation 43.1, RDW Coeff of Anna 13.2, Plt Count 300, MPV 11.0, Immature Gran % (Auto) 0.400, Neut % (Auto) 70.3 H, Lymph % (Auto) 20.6, [place] % (Auto) 6.9, Eos % (Auto) 1.1, Baso % (Auto) 0.7, Absolute Neuts (auto) 5.0, Absolute Lymphs (auto) 1.47, Nucleated RBC % 0 07/12/22 05:28: Sodium 135 L, Potassium 4.0, Chloride 105, Carbon Dioxide 27.0, Anion Gap 3 L, BUN 12, Creatinine 0.78, Estim Creat Clear Calc 99.97, Est GFR (MDRD) Af Amer 134, Est GFR (MDRD) Non-Af 110, BUN/Creatinine Ratio 15.3, Glucose 204 H, Calcium 8.7, Total Bilirubin 1.80 H, AST 16, ALT 32, Alkaline Phosphatase 90, Total Protein 6.6, Albumin 3.3, Globulin 3.3, Albumin/Globulin Ratio 1.0, Triglycerides 105, Cholesterol 181, LDL Cholesterol 120, VLDL Cholesterol 21, HDL Cholesterol 40 07/12/22 05:28: Hemoglobin A1c 9.3 H 07/12/22 06:30: POC Glucose 200 H 07/12/22 11:51: POC Glucose 277 H Radiography Diagnostic Testing: Radiology Impression Brain CT 07/11/22 16:40 IMPRESSION: Negative Brain CT without contrast. Electronically Signed: Carson Fajardo DO at 18:02 EDT , ADDENDUM: 07/11/22 1827 IMPRESSION: Negative Brain CT without contrast. N.B. : The above Results were Read Back by Carson Fajardo DO to Nelson Hurley MD, and understanding confirmed on 07/11/2022 18:20:12 (ET). Electronically Signed: Carson Fajardo DO at 18:02 EDT , Head/Neck CTA 07/11/22 16:41 IMPRESSION: Approximately 50% luminal narrowing at the cavernous portion of the right internal carotid artery. No aneurysm or dissection. N.B. : The above Results were Read Back by Carson Fajardo DO to NELSON HURLEY and understanding confirmed on 07/11/2022 18:20:18 (ET). Electronically Signed: Carson Fajardo DO at 18:21 EDT , ADDENDUM: 07/11/22 1828 IMPRESSION: Approximately 50% luminal narrowing at the cavernous portion of the right internal carotid artery. No aneurysm or dissection. N.B. : The above Results were Read Back by Carson Fajardo DO to NELSON HURLEY and understanding confirmed on 07/11/2022 18:20:18 (ET). Electronically Signed: Carson Fajardo DO at 18:21 EDT , Chest X-Ray 07/11/22 17:36 IMPRESSION: No radiographic evidence of acute cardiopulmonary disease. Electronically Signed: Carson Fajardo DO at 18:45 EDT Reading Location ID and State: [facility] / [place] Tel [phone], Service support , Echocardiogram 07/11/22 20:50 Interpretation Summary The estimated ejection fraction is 65 %. Unable to assess diastolic dysfunction. Ordering Physician: Ravin Cristina Referring Physician: David Cummins Performed By: Mercedes Zavala, RDSIMEON, RVT D/C Instructions Discharge Diet: Low fat / Low cholesterol and 1800 Calorie Control Diet Discharge Activity: Return to Normal Activity Return to work on: 07/13/22 May resume sexual activity in: No Restrictions Meaningful Use Info Meaningful Use Diagnoses (Choose all that apply): None applicable Discharge Plan Admission Admit Date/Time: 07/11/22 19:21 Primary Reason for Your Visit: R UE/LE tingling and numbness Attending Provider: Aspen Celis Primary Care Provider: David Cummins [employer]UMENTS ASSEMBLER Consulting Providers: Ravin Cristina Discharge Orders/Prescriptions Prescriptions: New aspirin 81 mg Tablet,Chewable 81 mg PO BREAKFAST Qty: 0 0RF atorvastatin 80 mg Tablet 80 mg PO QHS Qty: 30 0RF clopidogrel [Plavix] 75 mg tablet 75 mg PO DAILY Qty: 21 0RF Continued Stiolto Respimat 2.5-2.5 mcg/actuation mist 2 puff inhalation DAILY meclizine 25 MG tablet 25 mg PO 4X/DAY PRN PRN (Reason: Dizziness) epinephrine 0.3 mg/0.3 mL auto-injector 0.3 mg IM Q15M PRN (Reason: anaphylaxis) Qty: 2 0RF Rx Instructions: for 2 doses gabapentin 400 mg capsule 400 mg PO TID albuterol sulfate 90 mcg/actuation HFA aerosol inhaler 2 puff INHALATION Q6H PRN PRN (Reason: Shortness Of Breath) valsartan 160 mg tablet 160 mg PO DAILY Label Comments: DOSE CHANGE TAKE 1 TABLET ONCE DAILY FOR 90 DAYS insulin aspart U-100 [Novolog FlexPen U-100 Insulin] 100 unit/mL (3 mL) insulin pen 20 - 25 sliding scale dose SUBCUT BID levocetirizine 5 mg tablet 5 mg PO QHS atorvastatin 80 mg Tablet 80 mg PO QHS 30 Days Qty: 30 0RF amlodipine 5 mg Tablet 5 mg PO DAILY 30 Days Qty: 30 0RF hydrochlorothiazide 12.5 mg Capsule 12.5 mg PO DAILY 30 Days Qty: 30 0RF insulin glargine-yfgn 100 unit/mL (3 mL) insulin pen 50 unit subcut BID Arnuity Ellipta 200 mcg/actuation blister with device 1 inh inhalation QDAY Qty: 30 11RF Rx Instructions: administer at approximately the same time(s) each day Other Ambulatory Orders: 30 Day Event Recorder Preventi (Urgent) Timeframe: 1 Day Facility: [facility] - Location: Cardiovascular Services Ordered By: Dr. Aspen Celis Referrals / Follow Up: Nelson Gamino MD [Med Staff - Active Staff] - Within 1 Month (for carotid artery stenosis) Albert Melgoza MD [Non-Staff -Ordering Privileges] - Within 1 Month (TIA vs Myelopathy) David Cummins NP, [employer]SEMBLER-C [Primary Care Provider] - Within 1 Week Disposition Disposition (needs filled in before D/C Order can be placed): Home, Self Care Charges/Coding Visit Charges Inpatient E&M: 40887 Disch Hosp >30min 07/12/22 1653 <Electronically signed by Aspen Celis DO> Cosigner Signature (if applicable): CC: [employer]UMENTS ASSEMBLER-C David Cummins; Dr. Nelson Gamino MD; Dr. Aspen Celis DO; Dr. Albert Melgoza MD~ Signed [facility] Work Phone: Discharge summary Author Dr. Bella [facility] July 30, 2022 1:39pm Note Date/Time July 30, 2022 12:[address] [facility] Records Department [address] [place] [address] Emergency Department Summary 07/30/22 MR#: [id number] Acct: [id number] Name: SEUN VELASCO Rep #:[id number] : 1970 51 From: Gabino Odom PCP: David Cummins, JAYDEN Presley tus:REG ER Location: ED HPI History of Present Illness Chief Complaint: General Illness Informant: patient Narrative Narrative: Presents with sudden onset of tremors fatigue with concerning low glucose. He is a diabetic on weekly injections, 50 of Lantus twice daily and sliding scale for which he took 20 units this morning before breakfast. He states he ate lesscereal than normal. He was at a soccer game when he felt symptoms he had coffeewith sugar he drank a little bit elevated, EMS came and found his sugars to be 170s he was starting to feel better. He came by private vehicle for evaluation. No urinary symptoms no recent vomiting or diarrhea. No cough. Reports approximately week ago was admitted for TIA with numbness to the right arm and leg. Due to his girth, he was unable to go into an MRI to have event monitor placed since then. [facility] Medical History Acute respiratory failure with hypoxia Anaphylactic reaction to bee sting BiPAP (biphasic positive airway pressure) dependence Diabetes mellitus, type 2 Essential hypertension Former tobacco use GERD (gastroesophageal reflux disease) History of diabetes mellitus, type II History of hypertension Hx of hypercholesterolemia Hyperlipidemia Hypoxia Morbid obesity Morbid obesity MRSA bacteremia Obstructive sleep apnea NICHOLE treated with BiPAP Staphylococcal pneumonia Home Medications meclizine 25 mg tablet 25 mg PO 4X/DAY PRN PRN Dizziness 03/17/16 [History Last Taken Unknown] epinephrine 0.3 mg/0.3 mL injection, auto-injector 0.3 mg (0.3 mL) IM Q15M PRN anaphylaxis #2 ea 10/07/20 [Rx Last Taken Unknown] albuterol sulfate 90 mcg/actuation aerosol inhaler 2 puff inhalation Q6H PRN PRNShortness Of Breath 08/04/21 [History Last Taken Unknown] gabapentin 400 mg capsule 400 mg PO TID nerve pain 08/04/21 [History Last Taken Unknown] insulin aspart U-100 100 unit/mL (3 mL) subcutaneous pen (Novolog FlexPen U-100 Insulin aspart) 20 - 25 sliding scale dose subcut BID diabetes 08/04/21 [History Last Taken Unknown] levocetirizine 5 mg tablet 5 mg PO QHS sleep 08/04/21 [History Last Taken Unknown] valsartan 160 mg tablet 160 mg PO DAILY blood pressure 08/04/21 [History Last Taken Unknown] amlodipine 5 mg tablet 5 mg PO DAILY 30 days #30 tabs 08/10/21 [Rx Last Taken Unknown] atorvastatin 80 mg tablet 80 mg PO QHS 30 days #30 tabs 08/10/21 [Rx Last Taken Unknown] hydrochlorothiazide 12.5 mg capsule 12.5 mg PO DAILY 30 days #30 caps 08/10/21 [Rx Last Taken Unknown] tiotropium 2.5 mcg-olodaterol 2.5 mcg/actuation mist for inhalation (Stiolto Respimat) 2 puff inhalation DAILY asthma 09/13/21 [History Last Taken Unknown] fluticasone furoate 200 mcg/actuation blister powder for inhalation (Arnuity Ellipta) 1 inh inhalation QDAY #30 ea 05/13/22 [Rx Last Taken Unknown] insulin glargine-yfgn 100 unit/mL (3 mL) subcutaneous pen 50 unit subcut BID 07/11/22 [History Last Taken Unknown] aspirin 81 mg chewable tablet 81 mg PO BREAKFAST #0 tabs 07/12/22 [Rx Last Taken Unknown] atorvastatin 80 mg tablet 80 mg PO QHS #30 tabs 07/12/22 [Rx Last Taken Unknown] clopidogrel 75 mg tablet (Plavix) 75 mg PO DAILY #21 tabs 07/12/22 [Rx Last Taken Unknown] Allergy/AdvReac Type Severity Reaction Status Date / Time bee venom protein (honey bee) Allergy Swelling Verified 07/30/22 11:10 Penicillins Allergy RASH/LONG Verified 07/30/22 11:10 TIME TO WAKE ME UP Family History Mother Lung cancer with associated tobacco use history. Father Heart disease CHF (congestive heart failure) Hypertension Surgical History History of appendectomy Social History household members: spouse Smoking Status: Former smoker how long ago did patient quit smoking: Quit 30-33 years prior, started 1.5 ppd at age 9. alcohol intake: never substance use type: does not use ROS ROS ED Constitutional Constitutional ED: Denies chills, fever(s) or sweats Eyes Eyes: Denies change in vision ENT ENT ED: Denies dysphagia or sore throat Cardiovascular Cardiovascular: Denies chest pain, leg edema, palpitations or racing heartbeat Respiratory/Chest Respiratory/Chest: Denies cough, dyspnea or dyspnea on exertion Gastrointestinal Gastrointestinal: Denies abdominal pain, diarrhea, nausea or vomiting Genitourinary Genitourinary ED: Denies dysuria, hematuria or urinary frequency Musculoskeletal Musculoskeletal: Denies back pain, extremity pain or neck pain Integumentary Denies rash or wounds Neurologic Neurologic: Denies headache(s), paresthesias or weakness EXAM Physical Exam Const Vital Signs: 07/30/22 11:10 07/30/22 12:11 07/30/22 12:05 Temperature 97.8 F Temperature Source Temporal Pulse Rate 78 Respiratory Rate 18 18 Respiratory Effort Normal Respiratory Pattern Normal Blood Pressure 149/75 H Blood Pressure Mean 99 Pulse Ox 97 Oxygen Delivery Method Room Air 07/30/22 12:40 Temperature Temperature Source Pulse Rate 76 Respiratory Rate 18 Respiratory Effort Respiratory Pattern Blood Pressure 120/97 H Blood Pressure Mean 104 Pulse Ox 97 Oxygen Delivery Method Room Air Positive well nourished and well developed General Appearance ED: well developed and NAD HEENT Reports moist mucous membranes normocephalic and atraumatic Eyes PERRL, EOMs intact bilaterally and conjunctivae normal General Eye ED: Yes normal appearance of both eyes Neck no lymphadenopathy and supple General: Negative for tenderness Chest Wall Chest: Negative for tenderness Resp normal respiratory effort and normal air movement Effort and Inspection: symmetric chest movement; Negative for respiratory distress Cardio regular rate, regular rhythm and no murmurs Peripheral Pulses: pulses 2+ throughout GI normal to inspection, nondistended, normoactive bowel sounds and non-tender Palpation: Negative for guarding or rebound tenderness present Back/Spine no CVA tenderness and no thoracic nor lumbar tenderness Extremity normal to inspection General Extremety ED: Negative for edema or tenderness General Extremity: Negative for edema Neuro oriented x3, CN's II-XII intact bilaterally and no sensory deficits noted Sensorium / Orientation: awake and alert Skin no rashes or lesions noted and no wounds MDM MDM MDM Narrative Medical decision making narrative: Interventions / MDM: Differential diagnosis: Hypoglycemic event, history of diabetes, electrolyte abnormalities Diagnosis considered but do not suspect: N/A My EKG interpretation: N/A Imaging independently reviewed and interpreted by myself: N/A External documents reviewed: N/A Test considered but not ordered:N/A ED course: Vital stable clinically back to normal. He drank coffee with sugar prior to able. Glucose 168 fingerstick in the lab was 192. Hemoglobin 13.6 normal. Urine with glucose, however no infection. Re-evaluation: stable, patient ambulated in the department with no return of symptoms. Discussed hypoglycemic event is likely due to taking a smaller meal than normal for breakfast. He will monitor his glucose will eat his meals with his plans insulin. Outpatient follow-up and return precautions. All questions were answered. Disposition discussed with patient/family/significant other: Patient Case discussed with consulting clinician: N/A Lab Data Labs: Laboratory Results - last 24 hr 07/30/22 07/30/22 07/30/22 11:54 12:04 12:04 WBC 6.9 RBC 4.81 Hgb 13.6 Hct 42.8 MCV 89.0 MCH 28.3 MCHC 31.8 L RDW Std Deviation 42.9 RDW Coeff of Anna 13.2 Plt Count 253 MPV 10.5 Immature Gran % (Auto) 0.300 Neut % (Auto) 72.2 H Lymph % (Auto) 19.0 [place] % (Auto) 6.1 Eos % (Auto) 1.7 Baso % (Auto) 0.7 Absolute Neuts (auto) 5.0 Absolute Lymphs (auto) 1.32 Nucleated RBC % 0 Sodium 140 Potassium 4.1 Chloride 105 Carbon Dioxide 29.0 Anion Gap 6 BUN 12 Creatinine 0.85 Estim Creat Clear Calc 91.74 Est GFR (MDRD) Af Amer 121 Est GFR (MDRD) Non-Af 100 BUN/Creatinine Ratio 14.1 Glucose 192 H Calcium 8.8 Urine Color Urine Clarity Urine pH Ur Specific [place] Urine Protein Urine Glucose (UA) Urine Ketones Urine Occult Blood Urine Nitrite Urine Bilirubin Urine Urobilinogen Ur Leukocyte Esterase Urine RBC Urine WBC Ur Squamous Epith Cells Urine Bacteria Urine Mucus POC Glucose 168 H 07/30/22 12:25 WBC RBC Hgb Hct MCV MCH MCHC RDW Std Deviation RDW Coeff of Anna Plt Count MPV Immature Gran % (Auto) Neut % (Auto) Lymph % (Auto) [place] % (Auto) Eos % (Auto) Baso % (Auto) Absolute Neuts (auto) Absolute Lymphs (auto) Nucleated RBC % Sodium Potassium Chloride Carbon Dioxide Anion Gap BUN Creatinine Estim Creat Clear Calc Est GFR (MDRD) Af Amer Est GFR (MDRD) Non-Af BUN/Creatinine Ratio Glucose Calcium Urine Color Yellow Urine Clarity Clear Urine pH 6.0 Ur Specific [place] 1.015 Urine Protein Negative Urine Glucose (UA) 250 H Urine Ketones Negative Urine Occult Blood Negative Urine Nitrite Negative Urine Bilirubin Negative Urine Urobilinogen Normal Ur Leukocyte Esterase Negative Urine RBC 0 SEEN Urine WBC 0 SEEN Ur Squamous Epith Cells 0 SEEN Urine Bacteria 0 SEEN Urine Mucus 0 SEEN POC Glucose Discharge Plan Triage Chief Complaint: General Illness ED Provider: Gabino Bella Dx/Rx/DC Orders Clinical Impression: Diabetes mellitus, type 2, Hypoglycemic event in diabetes Instructions: Diabetes: Meal Planning Prescriptions: No Action Stiolto Respimat 2.5-2.5 mcg/actuation mist 2 puff inhalation DAILY meclizine 25 MG tablet 25 mg PO 4X/DAY PRN PRN (Reason: Dizziness) epinephrine 0.3 mg/0.3 mL auto-injector 0.3 mg IM Q15M PRN (Reason: anaphylaxis) Qty: 2 0RF Rx Instructions: for 2 doses gabapentin 400 mg capsule 400 mg PO TID albuterol sulfate 90 mcg/actuation HFA aerosol inhaler 2 puff INHALATION Q6H PRN PRN (Reason: Shortness Of Breath) valsartan 160 mg tablet 160 mg PO DAILY Label Comments: DOSE CHANGE TAKE 1 TABLET ONCE DAILY FOR 90 DAYS insulin aspart U-100 [Novolog FlexPen U-100 Insulin] 100 unit/mL (3 mL) insulin pen 20 - 25 sliding scale dose SUBCUT BID levocetirizine 5 mg tablet 5 mg PO QHS atorvastatin 80 mg Tablet 80 mg PO QHS 30 Days Qty: 30 0RF amlodipine 5 mg Tablet 5 mg PO DAILY 30 Days Qty: 30 0RF hydrochlorothiazide 12.5 mg Capsule 12.5 mg PO DAILY 30 Days Qty: 30 0RF insulin glargine-yfgn 100 unit/mL (3 mL) insulin pen 50 unit subcut BID aspirin 81 mg Tablet,Chewable 81 mg PO BREAKFAST Qty: 0 0RF atorvastatin 80 mg Tablet 80 mg PO QHS Qty: 30 0RF clopidogrel [Plavix] 75 mg tablet 75 mg PO DAILY Qty: 21 0RF Arnuity Ellipta 200 mcg/actuation blister with device 1 inh inhalation QDAY Qty: 30 11RF Rx Instructions: administer at approximately the same time(s) each day Primary Care Provider: David Cummins NP Referrals: David Cummins [employer]UMENTS ASSEMBLER, [employer]ENTS ASSEMBLER-C [Primary Care Provider] - 1-2 Weeks Activity Restrictions/Additional Instructions: History concerning for hypoglycemic event. Labs and urine stable. Glucose 192 in the lab. Make sure you eat your planned meal when you give yourself insulin. Follow- up with your doctor. Return if worsening or recurrent symptoms. Disposition Disposition: Home, Self Care What to do if you have Problems For any increased pain, shortness of breath, bleeding, nausea or vomiting, chestpain, or any unexpected problems, contact your Primary Care Provider. Call [facility] ([phone]) or report to the closest Emergency Room. Call 911 if necessary. 07/30/22 1339 <Electronically signed by Gabino Odom> Cosigner Signature (if applicable): CC: [employer]UMENTS ASSEMBLER-Jasbir Cummins ~ Signed [facility] Work Phone: Evaluation + Plan note Future Appointments Appointment Date:09/30/2021 03:20:00 PM Scheduled Provider:DAVID CUMMINS APRN, CNP Location:[facility] Appointment Type:PC OV Follow Up Appointment Date:10/01/2021 03:00:00 PM Scheduled Provider:DAVID CUMMINS APRN, CNP Location:[facility] Appointment Type:PC OV Follow Up Appointment Date:01/07/2022 03:00:00 PM Scheduled Provider:DAVID CUMMINS APRN, CNP Location:[facility] Appointment Type:PC OV Follow Up Future Scheduled Tests Laboratory* C-Reactive Protein 09/09/21 * Iron Level 05/17/21 * Prostate Specific Antigen 05/17/21 * Thyroid Stimulating Hormone 03/26/21 * A1C Hemoglobin 01/01/22 * A1C Hemoglobin 10/01/21 * A1C Hemoglobin 11/05/20 * A1C Hemoglobin 03/26/21 * A1C Hemoglobin 05/17/21 * Bordetella Pertussis PCR 09/09/21 * Complete Blood Count 11/05/20 * Complete Blood Count 09/07/21 * Complete Blood Count 05/17/21 * Complete Blood Count 09/09/21 * Lipid Profile 01/01/22 * Lipid Profile 11/05/20 * Lipid Profile 05/17/21 * Lipoprotein (a) 03/26/21 * Microalbumin Level Urine 01/01/22 * Sedimentation Rate Automated 09/09/21 * Vitamin D Level 01/01/22 * Vitamin D Level 03/26/21 * Vitamin D Level 05/17/21 * Complete Metabolic Panel 01/01/22 * Complete Metabolic Panel 11/05/20 * Complete Metabolic Panel 09/07/21 * Complete Metabolic Panel 03/26/21 * Complete Metabolic Panel 05/17/21 * Complete Metabolic Panel 09/09/21 * N-Terminal proBNP 09/09/21 * TIBC 05/17/21 Radiology* XR Chest 2 Views (PA & Lateral) 09/05/21 * XR Chest 2 Views (PA & Lateral) 09/09/21 [facility] Evaluation + Plan note Future Appointments Appointment Date:01/26/2023 02:00:00 PM Scheduled Provider:DAVID CUMMINS APRN, CNP Location:[facility] Appointment Type:PC OV Follow Up Future Scheduled Tests Laboratory* C-Reactive Protein 06/07/22 * Iron Level 07/25/22 * Iron Level 01/25/23 * A1C Hemoglobin 01/28/23 * A1C Hemoglobin 07/25/22 * A1C Hemoglobin 01/25/23 * Complete Blood Count 06/07/22 * Complete Blood Count 07/25/22 * Complete Blood Count 01/25/23 * Lipid Profile 07/25/22 * Lipid Profile 01/25/23 * Albumin/Creatinine Ratio, Random Urine 01/28/23 * Albumin/Creatinine Ratio, Random Urine 01/25/23 * Microalbumin Level Urine 07/25/22 * Vitamin D Level 07/25/22 * Vitamin D Level 01/25/23 * Complete Metabolic Panel 06/13/22 * Complete Metabolic Panel 01/28/23 * Complete Metabolic Panel 06/07/22 * Complete Metabolic Panel 07/25/22 * Complete Metabolic Panel 01/25/23 * N-Terminal proBNP 06/07/22 * TIBC 07/25/22 * TIBC 01/25/23 Radiology* XR Knee 3 Views Left 04/15/22 [facility] Evaluation + Plan note Future Appointments Appointment Date:12/11/2023 01:30:00 PM Scheduled Provider:BOOGIE ZALDIVAR Location:[facility] Appointment Type:PC OV Future Scheduled Tests Laboratory* Throat Culture 04/07/23 * Iron Level 01/25/23 * A1C Hemoglobin 12/19/23 * A1C Hemoglobin 01/25/23 * Complete Blood Count 12/26/23 * Complete Blood Count 01/25/23 * Lipid Profile 12/19/23 * Lipid Profile 01/25/23 * Albumin/Creatinine Ratio, Random Urine 01/25/23 * Vitamin D Level 01/25/23 * Complete Metabolic Panel 12/19/23 * Complete Metabolic Panel 01/25/23 * TIBC 01/25/23 [facility] Evaluation + Plan note Future Appointments Appointment Date:02/26/2024 01:00:00 PM Scheduled Provider:BOOGIE ZALDIVAR Location:[facility] Appointment Type:PC OV Appointment Date:03/27/2024 01:00:00 PM Scheduled Provider: Location:[facility] Appointment Type:MEDS - Diabetic Individual Visit Appointment Date:07/12/2024 01:00:00 PM Scheduled Provider:BOOGIE ZALDIVAR Location:[facility] Appointment Type:PC OV Future Scheduled Tests Laboratory* Clostridium difficile (PCR) 12/13/23 * Prostate Specific Antigen 07/12/24 * Stool Gastrointestinal Panel 12/13/23 * A1C Hemoglobin 07/12/24 * A1C Hemoglobin 12/19/23 * Complete Blood Count 12/26/23 * Lipid Profile 07/12/24 * Lipid Profile 12/19/23 * Albumin/Creatinine Ratio, Random Urine 07/12/24 * Complete Metabolic Panel 07/12/24 * Complete Metabolic Panel 12/19/23 [facility] Evaluation + Plan note Future Appointments Appointment Date:08/16/2024 10:30:00 AM Scheduled Provider: Location:[facility] Appointment Type:MEDS - Diabetic Individual Visit Appointment Date:08/16/2024 11:00:00 AM Scheduled Provider: Location:[facility] Appointment Type:NUT Diet Visit Individual Appointment Date:11/15/2024 10:00:00 AM Scheduled Provider:BOOGIE ZALDIVAR Location:[facility] Appointment Type:PC OV Future Scheduled Tests Laboratory* Clostridium difficile (PCR) 12/13/23 * Prostate Specific Antigen 07/12/24 * Stool Gastrointestinal Panel 12/13/23 * A1C Hemoglobin 07/12/24 * A1C Hemoglobin 11/14/24 * A1C Hemoglobin 12/19/23 * Complete Blood Count 12/26/23 * Lipid Profile 07/12/24 * Lipid Profile 11/14/24 * Lipid Profile 12/19/23 * Albumin/Creatinine Ratio, Random Urine 07/12/24 * Vitamin D Level 11/14/24 * Complete Metabolic Panel 07/12/24 * Complete Metabolic Panel 11/14/24 * Complete Metabolic Panel 12/19/23 [facility] Evaluation + Plan note Future Appointments Appointment Date:09/06/2024 10:00:00 AM Scheduled Provider: Location:[facility] Appointment Type:MEDS - Diabetic Individual Visit Appointment Date:11/15/2024 10:00:00 AM Scheduled Provider:BOOGIE ZALDIVAR Location:[facility] Appointment Type: OV Future Scheduled Tests Laboratory* Clostridium difficile (PCR) 12/13/23 * Prostate Specific Antigen 07/12/24 * Stool Gastrointestinal Panel 12/13/23 * A1C Hemoglobin 07/12/24 * A1C Hemoglobin 11/14/24 * A1C Hemoglobin 12/19/23 * Complete Blood Count 12/26/23 * Lipid Profile 07/12/24 * Lipid Profile 11/14/24 * Lipid Profile 12/19/23 * Albumin/Creatinine Ratio, Random Urine 07/12/24 * Vitamin D Level 11/14/24 * Complete Metabolic Panel 07/12/24 * Complete Metabolic Panel 11/14/24 * Complete Metabolic Panel 12/19/23 [facility] Evaluation note* Diagnosis Onset Date Resolution Status Acute dyspnea acute Acute respiratory failure with hypoxia acute History of diabetes mellitus acute Hypoxia acute Pneumonia acute [facility] Work Phone: Evaluation note* Diagnosis Onset Date Resolution Status Acute dyspnea acute Acute respiratory failure with hypoxia acute History of diabetes mellitus acute Hypoxia acute MRSA bacteremia acute Pneumonia acute Staphylococcal pneumonia acu te [facility] Work Phone: Evaluation note* Diagnosis Onset Date Resolution Status Acute dyspnea acute Acute respiratory failure with hypoxia acute History of diabetes mellitus acute Hypoxia acute MRSA bacteremia acute Pneumonia acute Staphylococcal pneumonia acu te MRSA bacteremia acute [facility] Work Phone: Evaluation noteNo assessment information available [facility] Work Phone: Evaluation note* Diagnosis Onset Date Resolution Status Brain TIA acute History of diabetes mellitus, type II acute History of hypertension acut e Hx of hypercholesterolemia a cute Morbid obesity acute Numbness and tingling acute [facility] Work Phone: Evaluation note* Diagnosis Onset Date Resolution Status Brain TIA acute History of diabetes mellitus, type II acute History of hypertension acut e Hx of hypercholesterolemia a cute Morbid obesity acute Numbness and tingling acute Essential hypertension chron ic [facility] Work Phone: Evaluation note* Diagnosis Onset Date Resolution Status Numbness and tingling resolv ed [facility] Work Phone: Evaluation note* Diagnosis Onset Date Resolution Status Numbness and tingling resolv ed Carotid artery disease nonea ctive [facility] Work Phone: Hospital course Narrative No data available for this section [facility] Hospital Discharge instructions No data available for this section [facility] Hospital Discharge instructions Additional Instructions History concerning for hypoglycemic event. Labs and urine stable. Glucose 192 in the lab. Make sure you eat your planned meal when you give yourself insulin. Follow-up with your doctor. Return if worsening or recurrent symptoms.[facility] Work Phone: Progress note No data available for this section [facility] Reason for referral (narrative)No reason for referral [facility] available[facility]: Chief Complaint and Reason for Visit Chief Complaint 8 PAGES SCANNED HYPOXIA, R SIDED PNA Reason for Visit Acute dyspnea Acute respiratory failure with hypoxia History of diabetes mellitus Hypoxia Pneumonia Chief Complaint 8 PAGES SCANNED HYPOXIA, R SIDED PNA HYPOXIA, R SIDED PNA HYPOXIA, R SIDED PNA HYPOXIA, R SIDED PNA HYPOXIA, R SIDED PNA HYPOXIA, R SIDED PNA HYPOXIA, R SIDED PNA HYPOXIA, R SIDED PNA HYPOXIA, R SIDED PNA HYPOXIA, R SIDED PNA Reason for Visit Acute dyspnea Acute respiratory failure with hypoxia History of diabetes mellitus Hypoxia MRSA bacteremia Pneumonia Staphylococcal pneumonia Chief Complaint 8 PAGES SCANNED HYPOXIA, R SIDED PNA HYPOXIA, R SIDED PNA HYPOXIA, R SIDED PNA HYPOXIA, R SIDED PNA HYPOXIA, R SIDED PNA HYPOXIA, R SIDED PNA HYPOXIA, R SIDED PNA HYPOXIA, R SIDED PNA HYPOXIA, R SIDED PNA HYPOXIA, R SIDED PNA cough Reason for Visit Acute dyspnea Acute respiratory failure with hypoxia History of diabetes mellitus Hypoxia MRSA bacteremia Pneumonia Staphylococcal pneumonia Chief Complaint 8 PAGES SCANNED HYPOXIA, R SIDED PNA HYPOXIA, R SIDED PNA HYPOXIA, R SIDED PNA HYPOXIA, R SIDED PNA HYPOXIA, R SIDED PNA HYPOXIA, R SIDED PNA HYPOXIA, R SIDED PNA HYPOXIA, R SIDED PNA HYPOXIA, R SIDED PNA HYPOXIA, R SIDED PNA cough Hospital FU Reason for Visit Acute dyspnea Acute respiratory failure with hypoxia History of diabetes mellitus Hypoxia MRSA bacteremia Pneumonia Staphylococcal pneumonia MRSA bacteremia Chief Complaint BILAT KNEE PAIN RIGHT LEG EDEMA Chief Complaint BILAT KNEE PAIN RIGHT LEG EDEMA NUMBNESS & TINGLING Reason for Visit Brain TIA History of diabetes mellitus, type II History of hypertension Hx of hypercholesterolemia Morbid obesity Numbness and tingling Chief Complaint BILAT KNEE PAIN RIGHT LEG EDEMA NUMBNESS & TINGLING NUMBNESS & TINGLING NUMBNESS & TINGLING Reason for Visit Brain TIA History of diabetes mellitus, type II History of hypertension Hx of hypercholesterolemia Morbid obesity Numbness and tingling Essential hypertension Chief Complaint BILAT KNEE PAIN RIGHT LEG EDEMA NUMBNESS & TINGLING NUMBNESS & TINGLING NUMBNESS & TINGLING Reason for Visit Numbness and tinglin g Chief Complaint BILAT KNEE PAIN RIGHT LEG EDEMA NUMBNESS & TINGLING NUMBNESS & TINGLING NUMBNESS & TINGLING Carotid artery disease CAROTID STENOSIS, HX TIA/STROKE PRESYNCOPE GENERAL ILLNESS Reason for Visit Numbness and tinglin g Carotid artery disease Chief Complaint PAT IS CALLING FOR O RDER NOW Chief Complaint Admit Date Allergic reaction August 14, 2024 5:25p m Family History No Family History Records Found Relationship Condition Age at Onset Recorded Date/T av mother Malignant neoplasm of lung Unknown father Cardiac disease Unknown Congestive heart failure Unknown Hypertension Unknown Advance Directives No Advanced Directives Records Found Advance Directive Response Recorded Date/ Time Advance Directives No February 12:32am Living Will No August 04, 2021 1 0:20am Power of Concrete Vibrator Operator No August 04, 2021 10:20am Advance Directive Response Recorded Date/ Time Advance Directives No February 12:32am Living Will No August 04, 2021 5 :07pm Power of Concrete Vibrator Operator No August 04, 2021 5:07pm Advance Directive Response Recorded Date/ Time Advance Directives No February 12:32am Living Will No August 14, 2021 1 :11pm Power of Concrete Vibrator Operator No August 14, 2021 1:11pm Advance Directive Response Recorded Date/ Time Advance Directives No February 11:32pm Living Will No August 14, 2021 1 2:11pm Power of Concrete Vibrator Operator No August 14, 2021 12:11pm Advance Directive Response Recorded Date/ Time Advance Directives No February 12:32am Living Will No July 11, 2022 5:00pm Power of Concrete Vibrator Operator No July 11 5:00pm Advance Directive Response Recorded Date/ Time Advance Directives No February 12:32am Living Will No July 11, 2022 8:52pm Power of Concrete Vibrator Operator No July 11 8:52pm Advance Directive Response Recorded Date/ Time Advance Directives No February 12:32am Living Will No July 30, 2022 1 2:11pm Power of Concrete Vibrator Operator No July 30, 2022 12:11pm Advance Directive Response Recorded Date/ Time Living Will No July 30, 2022 1 2:11pm Do you have a Healthcare Power of Concrete Vibrator Operator? No July 30, 2022 12:11pm Advance Directives No February 12:32am Summary Purpose Additional Source Comments Goals (unrecognized section and content) Goals may be documented in a n alternate sectionGoals may be documented in an alternate sectionGoals may be documented in an alternate sectionGoals may be documented in an alternate section No data available for this sectionGoals may be documented in an alternate sectionGoals may be documented in an alternate sectionGoals may be documented in an alternate sectionGoals may be documented in an alternate sectionGoals may be documented in an alternate sectionGoals may be documented in an alternate section No data available for this section No data available for this sectionGoals may be documented in an alternate section No data available for this section No data available for this sectionGoals may be documented in an alternate section No data available for this section No data available for this section Care Team (unrecognized sect ion and content) Care Team Personnel Name: DAVID CUMMINS APRN - EMPLOYMENT TRAINING SPECIALIST Position: P4 Advanced Practice Nurse Med Service: Employed Provider Member Role: Primary Care Physician Address: Address: [address] [place] [address] Care Team Related Persons Name: SEUN VELASCO II Care Teams (unrecognized sec tion and content) Team Status: Active Member Role Status Dates David Cummins MUSICAL INSTRUMENTS ASSEMBLER, MUSICAL INSTRUMENTS ASSEMBLER-C Family Provider Activ e David Cummins MUSICAL INSTRUMENTS ASSEMBLER, MUSICAL INSTRUMENTS ASSEMBLER-C Primary Care Provider Active Team Status: Inactive Member Role Status Dates David Cummins MUSICAL INSTRUMENTS ASSEMBLER, MUSICAL INSTRUMENTS ASSEMBLER-C Primary Care Provider, Attending Provider Active Team Status: Inactive Member Role Status Dates David Cummins MUSICAL INSTRUMENTS ASSEMBLER, MUSICAL INSTRUMENTS ASSEMBLER-C Primary Care Provider, Attending Provider, Referring Provider Active Team Status: Active Member Role Status Dates David Cummins MUSICAL INSTRUMENTS ASSEMBLER, MUSICAL INSTRUMENTS ASSEMBLER-C Primary Care Provider Active Dr. Jaden Lucio MD Attending Provider Active Team Status: Active Member Role Status Dates David Cummins MUSICAL INSTRUMENTS ASSEMBLER, MUSICAL INSTRUMENTS ASSEMBLER-C Primary Care Provider, Attending Provider Active Team Status: Active Member Role Status Dates David Cummins MUSICAL INSTRUMENTS ASSEMBLER, MUSICAL INSTRUMENTS ASSEMBLER-C Primary Care Provider, Referring Provider Active Dr. Jaden Lucio MD Attending Provider Active Team Status: Active Member Role Status Dates David Cummins MUSICAL INSTRUMENTS ASSEMBLER, MUSICAL INSTRUMENTS ASSEMBLER-C Primary Care Provider Active Dr. Nelson Hurley MD Emergency Provider Active Dr. Ravin Cristina MD Admit Provider, Attending Pro vider Active Team Status: Active Member Role Status Dates David Cummins MUSICAL INSTRUMENTS ASSEMBLER, MUSICAL INSTRUMENTS ASSEMBLER-C Primary Care Provider Active Dr. Nelson Hurley MD Emergency Provider Active Dr. Ravin Cristina MD Admit Provider, Attending Provider, Other Provider Active Team Status: Active Member Role Status Dates David Cummins MUSICAL INSTRUMENTS ASSEMBLER, MUSICAL INSTRUMENTS ASSEMBLER-C Primary Care Provider Active Dr. Jamey Guillermo MD Attending Provider Activ e Team Status: Active Member Role Status Dates David Cummins MUSICAL INSTRUMENTS ASSEMBLER, MUSICAL INSTRUMENTS ASSEMBLER-C Primary Care Provider Active Dr. Nelson Hurley MD Emergency Provider Active Dr. Ravin Cristina MD Admit Provider, Other Provide r Active Dr. Aspen Celis DO Attending Provider, Other Provide r Active Team Status: Inactive Member Role Status Dates David Cummins MUSICAL INSTRUMENTS ASSEMBLER, MUSICAL INSTRUMENTS ASSEMBLER-C Primary Care Provider Active Dr. Nelson Hurley MD Emergency Provider Active Dr. Ravin Cristina MD Admit Provider, Other Provide r Active Dr. Aspen Celis DO Attending Provider Active Team Status: Inactive Member Role Status Dates David Cummins MUSICAL INSTRUMENTS ASSEMBLER, MUSICAL INSTRUMENTS ASSEMBLER-C Primary Care Provider, Referring Provider Active CHITRA Lange Attending Provider Active Team Status: Active Member Role Status Dates David Cummins MUSICAL INSTRUMENTS ASSEMBLER, MUSICAL INSTRUMENTS ASSEMBLER-C Primary Care Provider Active Dr. Nelson Gamino MD Attending Provider Active Team Status: Active Member Role Status Dates David Cummins MUSICAL INSTRUMENTS ASSEMBLER, MUSICAL INSTRUMENTS ASSEMBLER-C Primary Care Provider Active CHITRA Lange Attending Provider, Referring Provider Active Team Status: Active Member Role Status Dates David Cummins MUSICAL INSTRUMENTS ASSEMBLER, MUSICAL INSTRUMENTS ASSEMBLER-C Primary Care Provider Active Dr. Aspen Celis DO Attending Provider Active Team Status: Inactive Member Role Status Dates David Cummins MUSICAL INSTRUMENTS ASSEMBLER, MUSICAL INSTRUMENTS ASSEMBLER-C Primary Care Provider Active Dr. Gabino Bella DO Emergency Provider Active Team Status: Inactive Member Role Status Dates David Cummins MUSICAL INSTRUMENTS ASSEMBLER, MUSICAL INSTRUMENTS ASSEMBLER-C Primary Care Provider Active Noelle Eli PA Attending Provider, Referring Provider Active Team Status: Active Member Role Status Dates David Cummins MUSICAL INSTRUMENTS ASSEMBLER, MUSICAL INSTRUMENTS ASSEMBLER-C Primary Care Provider Active Team Status: Inactive Member Role Status Dates David Cummins MUSICAL INSTRUMENTS ASSEMBLER, MUSICAL INSTRUMENTS ASSEMBLER-C Primary Care Provider Active Start: April 292024 End: April 29, 2024 BOOGIE ZALDIVAR MUSICAL INSTRUMENTS ASSEMBLER-C Attending Provider Active Start: April 29, 2024 End: April 29, 2024 JAYDEN DAVIES Referring Provider Active Start: April 29, 2024 End: April 29, 2024 Team Status: Inactive Member Role Status Dates David Cummins NP, MUSICAL INSTRUMENTS ASSEMBLER-C Primary Care Provider Active Start: August 14, 2024 End: August 14, 2024 Ed Physician Provider Emergency Provider Active Start: August 14, 2024 End: August 14, 2024 (unrecognized sect ion and content) No Status Records FoundNo Status Records FoundNo Status Records Found INFORMATION SOURCE (unrecogn ized section and content) DATE CREATED AUTHOR 11/25/2023 [facility] ([place]) DATE CREATED AUTHOR AUTHOR'S ORGANIZ ATION 08/19/2024 [facility] DATE CREATED AUTHOR AUTHOR'S ORGANIZ ATION 11/01/2024 [facility] FOR RECORDS PERTAINING TO PATIENTS WHO ARE OR HAVE BEEN ENROLLED IN A CHEMICAL DEPENDENCY/SUBSTANCEABUSE PROGRAM, SOME INFORMATION MAY BE OMITTED. This clinical summary was aggregated from multiple sources. Caution should be exercised in using it in the provision of clinical care. This summary normalizes information from multiple sources, and as a consequence, information in this document may materially change the coding, format and clinical context of patient data. In addition, data may be omitted in some cases. CLINICAL DECISIONS SHOULD BE BASED ON THE PRIMARY CLINICAL RECORDS. [facility]. provides no warranty or guarantee of the accuracy or completeness of information in this document.
[2024-11-02 09:18] LABS: AST(SGOT) 21 U/L (<=37); Alanine Aminotransfer ALT/SGPT 27 U/L (<=46); Albumin, Serum 4.0 g/dL (3.5-5.0); Alkaline Phosphatase 121 U/L (40-129); Anion Gap 10 (5-15); BUN 12 mg/dL (4-19); BUN/Creat Ratio 15.5 RATIO (10-20); Calcium,Total 8.8 mg/dL (7.6-11.0); Carbon Dioxide 27.0 mmol/L (21.0-32.0); Chloride 105 mmol/L (98-108); Globulin 2.4 g/dL (2.2-4.2); Glucose 239 mg/dL (70-99); Potassium 4.1 mmol/L (3.3-5.1); Vitamin D,25 Hydroxy 21.7 ng/mL (30-100)
[2024-11-02 10:29] LABS: Cholesterol 180 mg/dL (<=200); Low Density Lipoprotein Calc. 121 mg/dL; Triglycerides 84 mg/dL; Very Low Density Lipoprotein 17 mg/dL (5-40); cholesterol:hdl ratio screen 4.28
== END | disposition home or self-care (01) ==
LOC: LAB 06:51
PROVIDERS: PCP Nurse Practitioner Family; Referring Provider Nurse Practitioner Family; Visit Provider Nurse Practitioner Family
DX: E11.9 Type 2 diabetes mellitus without complications (principal); E55.9 Vitamin D deficiency, unspecified; E78.5 Hyperlipidemia, unspecified
CPT/HCPCS: 36415; 80053; 80061; 82306; 83036

== ENCOUNTER → 2025-02-15 | Outpatient (CLI) | payer MEDICARE, SELFPAY ==
--- OUTSIDE RECORDS SUMMARY | 2025-02-15 06:55 | XMS RPT_ITS | CCD ---
Author Organization [facility] Care Team Providers Care Scrap Hoist Operator Name Role Phone Placido HOUSEHOLD APPLIANCE REPAIRER, HOUSEHOLD APPLIANCE REPAIRER-C [place] [facility] Pr ovider Dr. [...] Attending Provider Dr. Jaden Tipton Other Provider Dr. Jamey Guillermo Attending Provider Dr. Alexander Arnold Attending Provider Dr. Maria E Crews Other Provider Dr. Maria E Crews Attending Provider Dr. Jimmy Mendez Attending Provider Placido WELLS, PRISCILLA-C [place] Referring Provi alhaji Dixon WELLS, HOUSEHOLD APPLIANCE REPAIRER-C Amarilys Attending Provider [phone] PLACIDO LOOM BLOWER - DAVID MILLAN Primary Care Phys ician Placido HOUSEHOLD APPLIANCE REPAIRER, HOUSEHOLD APPLIANCE REPAIRER-C [place] [facility] Pr ovider Dr. Jaden Lucio Attending Provider Placido HOUSEHOLD APPLIANCE REPAIRER, HOUSEHOLD APPLIANCE REPAIRER-C [place] [facility] Pr ovider Placido HOUSEHOLD APPLIANCE REPAIRER, HOUSEHOLD APPLIANCE REPAIRER-C [place] Referring Provi alhaji Dr. Jaden Lucio Attending Provider Dr. Nelson Hurley Emergency Provider [phone] Dr. Ravin Cristina Admit Provider Dr. Ravin Cristina Attending Provider Dr. Ravin Cristina Other Provider Dr. Jamey Guillermo Attending Provider [phone] Dr. Aspen Celis Attending Provider Dr. Aspen Celis Other Provider CHITRA Eli Attending Provider Dr. Nelson Gamino Attending Provider [phone] Jacinta Yang Unavailable Unavailable KAYLEY LOOM BLOWER-ELECTRICAL AUTOMATION ENGINEER, BOOGIE Primary Care Physician ANABEL HASNEN, BOOGIE Attending Unavailable DAVID LOVELACE APRN, CNP Primary Care U navailable KAYLEY LOOM BLOWER-ELECTRICAL AUTOMATION ENGINEER, BOOGIE Primary Care UnaDAVID Martinez APRN, CNP Attending U navailable KAYLEY LOOM BLOWER-ELECTRICAL AUTOMATION ENGINEER, BOOGIE Primary Care Unavai CUATE Serrano Attending Unavailable STEPHEN MILLIGAN Consulting Unavailable KEVIN SPRAGUE, PHOEBE Admitting Unavailable DAPHNE VELAZQUEZ MD Attending Unavailable DAVID LOVELACE APRN, CNP Primary Care U LUIS DANIEL Bassett MD Consulting Unavailable Placido HOUSEHOLD APPLIANCE REPAIRER-C, [place] [facility] Provi alhaji KAYLEY HOUSEHOLD APPLIANCE REPAIRER-C, BOOGIE Attending Provider KAYLEY HOUSEHOLD APPLIANCE REPAIRER-C, BOOGIE Referring Provider Provider, Ed Physician Emergency Provider Matthew Cummins HOUSEHOLD APPLIANCE REPAIRER-C, [place] [facility] Provi alhaji Provider, Ed Physician Attending Provider Matthew ZALDIVAR HOUSEHOLD APPLIANCE REPAIRER-C, BOOGIE Attending Provider KAYLEY HOUSEHOLD APPLIANCE REPAIRER-C, BOOGIE Referring Provider KAYLEY, BOOGIE Referring Unavailable Placido HOUSEHOLD APPLIANCE REPAIRER, [place] [facility] Unav ailable KAYLEY, BOOGIE Attending Unavailable Placido HOUSEHOLD APPLIANCE REPAIRER, [place] [facility] Unav ailable Provider, Ed Physician Attending Unavailab le KAYLEY, BOOGIE Attending Unavailable KAYLEY, BOOGIE Referring Unavailable Placido HOUSEHOLD APPLIANCE REPAIRER, [place] [facility] Unav ailable KAYLEY, BOOGIE Referring Unavailable Placido HOUSEHOLD APPLIANCE REPAIRER, [place] [facility] Unav ailable KAYLEY, BOOGIE Attending Unavailable KAYLEY LOOM BLOWER-ELECTRICAL AUTOMATION ENGINEER, BOOGIE Attending Unavai lable KAYLEY LOOM BLOWER-ELECTRICAL AUTOMATION ENGINEER, BOOGIE Primary Care Unavai lable [facility], BOOGIE Attending Unavailable KAYLEY LOOM BLOWER-ELECTRICAL AUTOMATION ENGINEER, BOOGIE Primary Care Unavai lable KAYLEY LOOM BLOWER-ELECTRICAL AUTOMATION ENGINEER, BOOGIE Attending Unavai lable KAYLEY LOOM BLOWER-ELECTRICAL AUTOMATION ENGINEER, BOOGIE Primary Care Unavai lable KAYLEY LOOM BLOWER-ELECTRICAL AUTOMATION ENGINEER, BOOGIE Primary Care Unavai lable ADRIEL LOOM BLOWER-ELECTRICAL AUTOMATION ENGINEER, SAYEDA Attending Unavailab le KAYLEY LOOM BLOWER-ELECTRICAL AUTOMATION ENGINEER, BOOGIE Primary Care Unavai lable KAYLEY LOOM BLOWER-ELECTRICAL AUTOMATION ENGINEER, BOOGIE Attending Unavai lable Allergies Allergy Classification Reported Allergen(s) Allergy Type Date of Onset Reaction(s) Facility (20 sources) Penicillins; Translations: [Penicillins] Allergy to substance 10-08-19 RASH/"LONG TIME TO WAKE ME UP" [facility] (20 sources) bee venom protein (honey bee) Allergy to substance 10-08-19 21 Swelling [facility] (7 sources) Bee/Wasp/Ant venom Allergy to substance Unknown (qualifier value) [facility] [place] (7 sources) exenatide; Translations: [exenatide] Drug Allergy [place] sick [facility] (7 sources) metFORMIN; Translations: [metformin] Drug Allergy Diarrhea (finding) [facility] (7 sources) Penicillin; Translations: [penicillin] Drug Allergy Drowsiness, function (observable entity) [facility] (7 sources) Sulfamethoxazole / Trimethoprim; Translations: [sulfamethoxazole-tr imethoprim] Drug Allergy Eruption of skin (disorder) [facility] (6 sources) Amoxicillin; Translations: [amoxicillin] Drug Allergy amoxicillin [facility] (1 source) bee venom protein (honey bee) Drug allergy (disorder) 08-15-19 [facility] Repository Medications Current Medications Medication Drug Class(es) Dates Sig (Normalized) Sig (Original) acetaminophen 325 mg oral capsule (5 sources) Start: 12-08-2022 Tylenol 325 mg oral capsule Dose : 650 mg =, Oral, q4h, PRN Pain, scale 1-3, 0 Refill(s) Start Date: 12/08/22 Status: Ordered Repeat number: 1 amLODIPine 5 mg oral tablet (20 sources) Dihydropyridine Calcium Channel [place] Start: 08-10-2021 End: 11-13-2024 Norvasc 5 mg oral tablet Dose : 5 mg = 1 tab(s), Oral, BID, # 180 tab(s), 1 Refill(s), Pharmacy: [facility], HTN, goal below 140/90, 169, cm, 05/17/24 10:17:00 EST, Height, kg, 05/17/24 10:17:00 EST, Dosing Weight Start Date: 05/17/24 Stop Date: 11/13/24 Status: Ordered Quantity: 180.0 Unit: tab(s) Repeat number: 2 Indications: Essential (primary) hypertension; aspirin 81 mg chewable tablet (7 sources) Platelet Aggregation Inhibitor, Nonsteroidal Anti-inflammatory Drug Start: 07-12-2022 take 1 tablet by mouth at breakfast Aspirin 81 mg Tablet,Chewable Active 81 mg PO WITH BREAKFAST 0 0 July 12, 2022 12:00am atorvastatin 80 mg oral tablet (20 sources) HMG-CoA Reductase Inhibitor Start: 08-10-2021 take 1 tablet by mouth at bedtime Atorvastatin 80 mg Tablet Active 80 mg PO AT BEDTIME 30 July 12, 2022 12:00am benzonatate 100 mg [...] use, # 10.7 gram(s), 3 Refill(s), Pharmacy: [facility], COPD with asthma, 170, cm, 09/25/23 13:05:00 EDT, Height, kg, 09/25/23 13:05:00 EDT, Dosing Weight Start Date: 09/25/23 Status: Ordered celecoxib 200 mg oral capsule (5 sources) Nonsteroidal Anti-inflammatory Drug Start: 05-17-2024 CeleBREX 200 mg oral capsule Dose : 200 mg = 1 cap(s), Oral, qDay, # 90 cap(s), 1 Refill(s), Pharmacy: [facility], Osteoarthritis of multiple joints, 169, cm, 05/17/24 10:17:00 EST, Height, kg, 05/17/24 10:17:00 EST, Dosing Weight Start Date: 05/17/24 Status: Ordered Quantity: 90.0 Unit: cap(s) Repeat number: 2 Indications: Polyosteoarthritis, unspecified; Start: 01-12-2024 CeleBREX 200 m g oral capsule Dose : 200 mg = 1 cap(s), Oral, qDay, # 90 cap(s), 1 Refill(s), Pharmacy: [facility], Osteoarthritis of multiple joints, 168, cm, 01/12/24 14:55:00 EDT, Height, kg, 01/12/24 14:55:00 EDT, Dosing Weight Start Date: 01/12/24 Status: Ordered Start: 07-25-2022 CeleBREX 200 m g oral capsule Dose : 200 mg = 1 cap(s), Oral, qDay, # 90 cap(s), 1 Refill(s), Pharmacy: [facility], Pain of right knee after injury, 173, cm, 07/25/22 13:56:00 EDT, Height, kg, 07/25/22 13:56:00 EDT, Dosing Weight Start Date: 07/25/22 Status: Ordered cetirizine hydrochloride 10 mg oral tablet (1 source) Histamine-1 Receptor Antagonist Start: 09-23-2023 End: 10-23-2023 cetirizine 10 mg oral tablet Dose : 10 mg = 1 tab(s), Oral, qDay, PRN Rash, # 30 tab(s), 0 Refill(s), Pharmacy: [facility], 66.3, cm, 09/23/23 8:52:00 EDT, Height, kg, 09/23/23 8:52:00 EDT, Dosing Weight Start Date: 09/23/23 Stop Date: 10/23/23 Status: Ordered chlorhexidine gluconate 40 mg/ml medicated liquid soap (1 source) Start: 12-08-2022 End: 12-13-2022 apply 1 dose topically once daily chlorhexidine 4% topical soap Dose = 1 merlene, Topical, Daily, # 120 mL, 0 Refill(s), Pharmacy: [facility], 167.6, cm, 12/04/22 17:22:00 EDT, Height, kg, 12/04/22 17:22:00 EDT, Dosing Weight Start Date: 12/08/22 Stop Date: 12/13/22 Status: Ordered cholecalciferol 1.25 mg oral capsule (4 sources) Vitamin D Start: 06-19-2023 End: 12-16-2023 cholecalciferol 1250 mcg (50,000 intl units) oral capsule Dose : 1,250 mcg = 1 cap(s), Oral, qWeek, # 13 cap(s), 1 Refill(s), Pharmacy: [facility], Vitamin D deficiency, 168.3, cm, 06/19/23 14:00:00 EDT, Height, kg, 06/19/23 14:00:00 EDT, Dosing Weight Start Date: 06/19/23 Stop Date: 12/16/23 Status: Ordered Start: 07-25-2022 End: 01-21-2023 cholecalciferol 1250 mcg (50 ,000 intl units) oral capsule Dose : 1,250 mcg = 1 cap(s), Oral, qWeek, # 13 cap(s), 1 Refill(s), Pharmacy: [facility], Vitamin D deficiency, 173, cm, 07/25/22 13:56:00 EDT, Height, kg, 07/25/22 13:56:00 EDT, Dosing Weight Start Date: 07/25/22 Stop Date: 01/21/23 Status: Ordered Start: 07-02-2021 End: 12-29-2021 cholecalciferol 1250 mcg (50 ,000 intl units) oral capsule Dose : 1,250 mcg = 1 cap(s), Oral, qWeek, # 13 cap(s), 1 Refill(s), Pharmacy: [facility], Vitamin D deficiency, 169, cm, 07/02/21 [...] 0 Refill(s), 12/18/22 11:14:00 AM EDT, Pharmacy: [facility], 167.6, cm, 12/04/22 17:22:00 EDT, Height, 152.6, kg, 12/04/22 17:22:00 EDT, Dosing Weight Start Date: 12/08/22 Stop Date: 12/18/22 Status: Ordered clopidogrel 75 mg oral tablet (9 sources) [id number] Platelet Inhibitor Start: 07-12-2022 End: [...] glucose, # 2 EA, 11 Refill(s), Pharmacy: [facility], 170, cm, 02/26/24 12:58:00 EST, Height, 151.3, kg, 02/26/24 12:58:00 EST, Dosing Weight Start Date: 03/26/24 Status: Ordered Quantity: 2.0 Unit: EA Repeat number: 12 Start: 09-25-2023 DME MISCellane ous See Instructions, Knee-high compression stockings with compression of 20-30. Requesting 2 pairs., # 2 EA, 0 Refill(s), Pharmacy: [facility], Peripheral edema, 170, cm, 09/25/23 13:05:00 EDT, Height, 152.7, kg, 09/25/23 13:05:00 EDT, Dosing Weight Start Date: 09/25/23 Status: Ordered Quantity: 2.0 Unit: EA Repeat number: 1 Indications: Edema, unspecified; Start: 09-25-2023 DME MISCellane ous See Instructions, Knee-high compression stockings with compression of 20-30. Requesting 2 pairs., # 2 EA, 0 Refill(s), Pharmacy: [facility], Peripheral edema, 170, cm, 09/25/23 13:05:00 EDT, Height, 152.7, kg, 09/25/23 13:05:00 EDT, Dosing Weight Start Date: 09/25/23 Status: Ordered Start: 05-24-2023 DME MISCellane ous See Instructions, Libre3 Sensors #2 sensors. Apply to arm once every 14 days to monitor glucose, # 2 EA, 11 Refill(s), Pharmacy: [facility], 170, cm, 04/13/23 13:42:00 EST, Height, 158.4, kg, 05/16/23 13:39:00 EST, Dosing Weight Start Date: 05/24/23 Status: Ordered Start: 03-24-2022 DME MISCellane ous See Instructions, Compression socks, knee high with compression 30-40, # 2 EA, 0 Refill(s), Pharmacy: [facility], Chronic venous insufficiency, 169, cm, 01/25/22 10:01:00 EST, Height, 180.7, kg, 01/25/22 10:01:00 EST, Dosing Weight Start Date: 03/24/22 Status: Ordered Quantity: 2.0 Unit: EA Repeat number: 1 Indications: Venous insufficiency (chronic) (peripheral); Start: 03-24-2022 DME MISCellane ous See Instructions, Compression socks, knee high with compression 30-40, # 2 EA, 0 Refill(s), Pharmacy: [facility], Chronic venous insufficiency, 169, cm, 01/25/22 [...] 0 Refill(s), 12/11/22 1:57:00 PM EDT, Pharmacy: [facility], Abscess, 173, cm, 12/01/22 13:40:00 EDT, [...] dose, # 60 tab(s), 0 Refill(s), Pharmacy: [facility], 66.3, cm, 09/23/23 8:52:00 EDT, Height, kg, 09/23/23 8:52:00 EDT, Dosing Weight Start Date: 09/23/23 Stop Date: 10/23/23 Status: Ordered ferrous sulfate 325 mg oral tablet (3 sources) Start: 07-25-2022 End: 01-21-2023 ferrous sulfate 325 mg (65 mg elemental iron) oral tablet Dose : 325 mg = 1 tab(s), Oral, qDay, # 90 tab(s), 1 Refill(s), Pharmacy: [facility], 173, cm, 07/25/22 13:56:00 EDT, Height, kg, 07/25/22 13:56:00 EDT, Dosing Weight Start Date: 07/25/22 Stop Date: 01/21/23 Status: Ordered Start: 07-02-2021 End: 12-29-2021 ferrous sulfate 325 mg (65 m g elemental iron) oral tablet Dose : 325 mg = 1 tab(s), Oral, qDay, # 90 tab(s), 1 Refill(s), Pharmacy: [facility], 169, cm, 07/02/21 15:31:00 EDT, Height, [...] using, # 16 gram(s), 5 Refill(s), Pharmacy: [facility], Allergic rhinitis, 169, cm, 02/19/24 10:03:00 EST, Height, kg, 02/19/24 10:03:00 EST, Dosing Weight Start Date: 02/19/24 Stop Date: 08/17/24 Status: Ordered Quantity: 16.0 Unit: g Repeat number: 6 Indications: Allergic rhinitis, unspecified; Start: 05-13-2022 take 200 ug by inhal ation once daily Fluticasone Furoate (Arnuity Ellipta) 200 mcg/actuation blister with device Active 1 NMA INHALATION daily 16 02May 13, 2022 1:00am administer at approximately the [...] with device Discontinued 1 NMA INHALATION Q24H 30 5 October 05, 2021 12:00am October 25, 2021 7:46am furosemide 20 mg oral tablet (6 sources) Loop Diuretic Start: 05-17-2024 Lasix 20 mg or al tablet Dose : 20 mg = 1 tab(s), Oral, qDay, # 90 tab(s), 1 Refill(s), Pharmacy: [facility], 169, cm, 05/17/24 10:17:00 EST, Height, kg, 05/17/24 10:17:00 EST, Dosing Weight Start Date: 05/17/24 Status: Ordered Quantity: 90.0 Unit: tab(s) Repeat number: 2 Start: 01-12-2024 Lasix 20 mg or al tablet Dose : 20 mg = 1 tab(s), Oral, qDay, # 90 tab(s), 1 Refill(s), Pharmacy: [facility], 168, cm, 01/12/24 14:55:00 EDT, Height, kg, 01/12/24 14:55:00 EDT, Dosing Weight Start Date: 01/12/24 Status: Ordered Start: 06-19-2023 Lasix 20 mg or al tablet Dose : 20 mg = 1 tab(s), Oral, qDay, # 90 tab(s), 1 Refill(s), Pharmacy: [facility], 168.3, cm, 06/19/23 14:00:00 EDT, Height, kg, 06/19/23 14:00:00 EDT, Dosing Weight Start Date: 06/19/23 Status: Ordered Start: 11-11-2022 End: 01-10-2023 Lasix 20 mg oral tablet Dose : 20 mg = 1 tab(s), Oral, qDay, # 30 tab(s), 1 Refill(s), Pharmacy: [facility], 173, cm, 10/28/22 13:51:00 EDT, Height, kg, 10/28/22 13:51:00 EDT, Dosing Weight Start Date: 11/11/22 Stop Date: 01/10/23 Status: Ordered gabapentin 400 mg oral capsule (20 sources) Anti-epileptic Agent Start: 05-07-2019 take 1 capsule by mouth three times daily Gabapentin 400 mg capsule Active 400 mg PO THREE TIMES A DAY August 04, 2021 12:00am nerve pain glipiZIDE er 5 mg 24 hr extended release oral tablet (1 source) Sulfonylurea Start: 06-27-2023 glipiZIDE 5 mg oral tablet, extended release Dose : 5 mg = 1 tab(s), Oral, qDay, # 30 tab(s), 1 Refill(s), Pharmacy: [facility], 168.3, cm, 06/19/23 14:00:00 EDT, Height, kg, 06/19/23 14:00:00 EDT, Dosing Weight Start Date: 06/27/23 Status: Ordered hydroCHLOROthiazide 12.5 mg oral capsule (18 sources) Thiazide Diuretic Start: 08-10-2021 take 1 capsule by mouth once daily Hydrochlorothiazide 12.5 mg Capsule Active 12.5 mg PO DAILY 30 30 0 August 10, 2021 12:00am 3 ml insulin aspart, human 100 unt/ml pen injector (20 sources) Insulin Analog Start: 08-16-2024 NovoLOG FlexPen 100 units/mL injectable solution Dose : 8 unit(s) =, Subcutaneous, BIDAC, # 15 mL, 3 Refill(s), Pharmacy: [facility], 167.6, cm, 08/14/24 18:14:00 EDT, Height, kg, 08/14/24 18:14:00 EDT, Dosing Weight Start Date: 08/16/24 Status: Ordered Quantity: 15.0 Unit: mL Repeat number: 4 Start: 02-14-2024 Insulin Aspart FlexPen 100 units/mL injectable solution Dose : 5 unit(s) =, Subcutaneous, TIDAC, # 15 mL, 2 Refill(s), Pharmacy: [facility], 169, cm, 02/06/24 15:50:00 EST, [...] supply, # 75 mL, 1 Refill(s), Pharmacy: [facility], 173, cm, 10/28/22 13:51:00 EDT, Height, kg, 10/28/22 13:51:00 EDT, Dosing Weight Start Date: 10/28/22 Stop Date: 04/26/23 Status: Ordered Start: 08-04-2021 Insulin Aspart U-100 (Novolog Flexpen U-100 Insulin) 100 unit/mL (3 mL) insulin pen Active 20 - 25 sliding scale dose SC TWICE A DAY August 04, 2021 12:00am diabetes Start: 08-04-2021 Insulin Aspart U-100 (Novolog Flexpen U-100 Insulin) 100 unit/mL (3 mL) insulin pen Active 20 - 25 sliding scale dose SC TWICE A DAY August 04, 2021 12:00am Start: 07-02-2021 End: 12-29-2021 NovoLOG FlexPen 100 units/mL injectable solution Dose : 35 unit(s) =, Subcutaneous, BIDAC, QS for 30 day supply, # 65 mL, 1 Refill(s), Pharmacy: [facility], 169, cm, 07/02/21 15:31:00 EDT, Height, [...] 7:23pm Start: 08-10-2021 End: 07-11-2022 Insulin Glargine-Yfgn 100 [...] BIDAC, # 45 mL, 1 Refill(s), Pharmacy: [facility], 170, cm, 07/08/24 13:21:00 EDT, Height, [...] PO AT BEDTIME August 04, 2021 12:00am sleep Start: 11-17-2020 End: 06-15-2021 Xyzal 5 mg oral tablet Dose : 5 mg = 1 tab(s), Oral, qHS, # 30 tab(s), 6 Refill(s), Pharmacy: [facility], Seasonal allergies, 170, cm, 11/17/20 14:55:00 [...] qDay, # 9 mL, 3 Refill(s), Pharmacy: [facility], 170, cm, 07/08/24 13:21:00 EDT, Height, kg, 07/08/24 13:21:00 EDT, Dosing Weight Start Date: 07/17/24 Stop Date: 11/14/24 Status: Ordered Quantity: 9.0 Unit: mL Repeat number: 4 Start: 02-14-2024 End: 06-13-2024 inject 1 dose by subcutaneous injection once daily Victoza 18 mg/3 mL subcutaneous Pen Dose : 1.8 mg =, Subcutaneous, qDay, # 9 mL, 3 Refill(s), Pharmacy: [facility], 169, cm, 02/06/24 15:50:00 EST, Height, kg, 02/06/24 15:50:00 EST, Dosing Weight Start Date: 02/14/24 Stop Date: 06/13/24 Status: Ordered Start: 05-04-2023 End: 01-29-2024 inject 1 dose by subcutaneous injection once daily Victoza 18 mg/3 mL subcutaneous Pen Dose : 1.8 mg =, Subcutaneous, qDay, # 15 mL, 2 Refill(s), Pharmacy: [facility], 170, cm, 04/13/23 13:42:00 EST, Height, kg, 04/13/23 13:42:00 EST, Dosing Weight Start Date: 05/04/23 Stop Date: 01/29/24 Status: Ordered Start: 10-28-2022 End: 04-26-2023 inject 1 dose by subcutaneous injection once daily Victoza 18 mg/3 mL subcutaneous Pen Dose : 1.8 mg =, Subcutaneous, qDay, # 15 mL, 1 Refill(s), Pharmacy: [facility], 173, cm, 10/28/22 13:51:00 EDT, Height, kg, 10/28/22 13:51:00 EDT, Dosing Weight Start Date: 10/28/22 Stop Date: 04/26/23 Status: Ordered Start: 07-02-2021 inject 1 dose by sub cutaneous injection once daily Victoza 18 mg/3 mL subcutaneous Pen Dose : 1.8 mg =, Subcutaneous, qDay, # 9 mL, 6 Refill(s), Pharmacy: [facility], 169, cm, 07/02/21 15:31:00 EDT, Height, kg, 07/02/21 15:31:00 EDT, Dosing Weight Start Date: 07/02/21 Status: Ordered loratadine 10 mg oral tablet (3 sources) Start: 02-19-2024 loratadine 10 mg oral tablet Dose : 10 mg = 1 tab(s), Oral, qDay, # 90 tab(s), 1 Refill(s), Pharmacy: [facility], Allergic rhinitis, 169, cm, 02/19/24 10:03:00 EST, Height, kg, 02/19/24 10:03:00 EST, Dosing Weight Start Date: 02/19/24 Status: Ordered Quantity: 90.0 Unit: tab(s) Repeat number: 2 Indications: Allergic rhinitis, unspecified; meclizine hydrochloride 25 mg oral tablet (20 sources) Antiemetic Start: 03-17-2016 take 1 tablet [...] day(s), # 15 gram(s), 0 Refill(s), Pharmacy: [facility], 167.6, cm, 12/04/22 17:22:00 EDT, Height, [...] q24h, # 4 gram(s), 5 Refill(s), Pharmacy: [facility], COPD with asthma, 169, cm, [...] q24h, # 4 gram(s), 0 Refill(s), Pharmacy: [facility], COPD with asthma, 168, cm, 01/12/24 14:55:00 EDT, Height, kg, 01/12/24 14:55:00 EDT, Dosing Weight Start Date: 01/12/24 Status: Ordered Start: 08-18-2023 take 1 dose by inhal ation every twenty-four hours Stiolto Respimat 60 ACT 2.5 mcg-2.5 mcg/inh inhalation aerosol Dose = 2 puff(s), Inhalation, q24h, # 4 gram(s), 0 Refill(s), Pharmacy: [facility], COPD with asthma, 168, cm, 07/07/23 9:06:00 EDT, Height, kg, 08/10/23 15:08:00 EDT, Dosing Weight Start Date: 08/18/23 Status: Ordered Start: 11-11-2022 take 1 dose by inhal ation every twenty-four hours Stiolto Respimat 60 ACT 2.5 mcg-2.5 mcg/inh inhalation aerosol Dose = 2 puff(s), Inhalation, q24h, # 4 gram(s), 5 Refill(s), Pharmacy: [facility], COPD with asthma, 173, cm, 10/28/22 13:51:00 EDT, Height, kg, 10/28/22 13:51:00 EDT, Dosing Weight Start Date: 11/11/22 Status: Ordered Start: 09-13-2021 Tiotropium-Olo daterol (Stiolto Respimat) 2.5-2.5 mcg/actuation mist Active 2 NMA INHALATION DAILY September 13, 2021 12:00am asthma Start: 09-13-2021 Tiotropium-Olo daterol (Stiolto Respimat) 2.5-2.5 [...] qDay, # 4 gram(s), 1 Refill(s), Pharmacy: [facility], MRSA pneumonia Chronic coughing, 169, cm, [...] 0 Refill(s), 12/11/22 10:52:00 AM EDT, Pharmacy: [facility], Neck pain, 167.6, cm, 12/04/22 17:22:00 [...] Daily, # 90 tab(s), 1 Refill(s), Pharmacy: [facility], 169, cm, 05/17/24 10:17:00 EST, Height, kg, 05/17/24 10:17:00 EST, Dosing Weight Start Date: 05/17/24 Status: Ordered Quantity: 90.0 Unit: tab(s) Repeat number: 2 Start: 06-01-2023 pioglitazone 4 5 mg oral tablet Dose : 45 mg = 1 tab(s), Oral, Daily, # 90 tab(s), 3 Refill(s), Pharmacy: [facility], 170, cm, 05/31/23 13:52:00 EDT, Height, kg, 05/31/23 13:48:00 EDT, Dosing Weight Start Date: 06/01/23 Status: Ordered Start: 10-28-2022 Actos 45 mg or al tablet Dose : 45 mg = 1 tab(s), Oral, qDay, # 90 tab(s), 1 Refill(s), Pharmacy: [facility], DM type 2, goal HbA1c Start Date: 10/28/22 Status: Ordered Start: 02-23-2021 End: 09-21-2021 Actos 45 mg oral tablet Dose : 45 mg = 1 tab(s), Oral, qDay, # 30 tab(s), 6 Refill(s), Pharmacy: [facility], DM type 2, goal HbA1c Start Date: 02/23/21 Stop Date: 09/21/21 Status: Ordered predniSONE 20 mg oral tablet (20 sources) Start: 08-14-2024 End: 08-19-2024 predniSONE 20 [...] med., # 20 tab(s), 0 Refill(s), Pharmacy: [facility], 66.3, cm, 09/23/23 8:52:00 EDT, Height, [...] qDay, # 90 tab(s), 1 Refill(s), Pharmacy: [facility], Hyperlipidemia LDL goal Start Date: 05/17/24 Stop Date: 11/13/24 Status: Ordered Quantity: 90.0 Unit: tab(s) Repeat number: 2 Indications: Hyperlipidemia, unspecified; Start: 06-19-2023 End: 12-16-2023 rosuvastatin 40 mg oral tabl et Dose : 40 mg = 1 tab(s), Oral, qDay, # 90 tab(s), 1 Refill(s), Pharmacy: [facility], Hyperlipidemia LDL goal Start Date: 06/19/23 Stop Date: 12/16/23 Status: Ordered Start: 07-25-2022 End: 01-21-2023 rosuvastatin 40 mg oral tabl et Dose : 40 mg = 1 tab(s), Oral, qDay, # 90 tab(s), 1 Refill(s), Pharmacy: [facility], Hyperlipidemia LDL goal Start Date: 07/25/22 Stop Date: 01/21/23 Status: Ordered Start: 07-02-2021 End: 12-29-2021 rosuvastatin 40 mg oral tabl et Dose : 40 mg = 1 tab(s), Oral, qDay, # 90 tab(s), 1 Refill(s), Pharmacy: [facility], Hyperlipidemia LDL goal Start Date: 07/02/21 [...] qDay, # 90 tab(s), 1 Refill(s), Pharmacy: [facility], 173, cm, 07/25/22 13:56:00 EDT, Height, kg, 07/25/22 13:56:00 EDT, Dosing Weight Start Date: 07/25/22 Status: Ordered Start: 08-04-2021 take 1 tablet by once daily Valsartan 160 mg tablet Active 160 mg PO DAILY August 04, 2021 12:00am blood pressure Start: 07-02-2021 Diovan 320 mg oral tablet Dose : 320 mg = 1 tab(s), Oral, qDay, # 90 tab(s), 1 Refill(s), Pharmacy: [facility], 169, cm, 07/02/21 15:31:00 EDT, Height Start Date: 07/02/21 Status: Ordered Completed/Discontinued Medications Medication Drug Class(es) Dates Sig (Normalized) Sig (Original) [id number] 200 actuat albuterol 0.09 mg/actuat metered dose inhaler (20 sources) beta2-Adrenergic Agonist Start: 03-26-2024 End: 06-24-2024 take 2 puff(s) by inhalation every six hours as needed for wheezing ProAir HFA MDI (90 mcg/inh) inhalation aerosol 2 puff(s), Inhalation, q6h, PRN as needed for wheezing, # 1 EA, 2 Refill(s), Pharmacy: [facility], Asthma, 170, cm, 02/26/24 12:58:00 [...] wheezing, # 1 EA, 0 Refill(s), Pharmacy: [facility], Asthma, 168, cm, 07/07/23 9:06:00 EDT, Height, kg, 08/10/23 15:08:00 EDT, Dosing Weight Start Date: 08/18/23 Stop Date: 09/17/23 Status: Ordered Start: 07-25-2022 End: 02-20-2023 take 2 puff(s) by inhalation every six hours as needed for wheezing ProAir HFA MDI (90 mcg/inh) inhalation aerosol 2 puff(s), Inhalation, q6h, PRN as needed for wheezing, # 1 EA, 6 Refill(s), Pharmacy: [facility], Asthma, 173, cm, 07/25/22 13:56:00 EDT, [...] wheezing, # 1 EA, 6 Refill(s), Pharmacy: [facility], Asthma, 169, cm, 07/02/21 15:31:00 EDT, Height, kg, 07/02/21 15:31:00 EDT, Dosing Weight Start Date: 07/02/21 Stop Date: 01/28/22 Status: Ordered albuterol MDI (90 mcg/inh) CFC free inhalation aerosol (1 source) Start: 07-29-2021 End: 08-28-2021 take 2 puff(s) by inhalation every six hours albuterol MDI (90 mcg/inh) CFC free inhalation aerosol 2 puff(s), Inhalation, q6h, # 18 gram(s), 0 Refill(s), Pharmacy: [facility], Cough with sputum Decreased lung sounds, 169, cm, 07/29/21 13:21:00 EDT, Height Start Date: 07/29/21 Stop Date: 08/28/21 Status: Ordered azithromycin 250 mg oral tablet (20 sources) Macrolide Antimicrobial Start: 08-04-2021 End: 08-10-2021 take 1 tablet by mouth once daily Azithromycin 250 mg tablet Discontinued 250 mg PO DAILY August 04, 2021 12:00am August 10, 2021 11:07am [id number] 0.3 ml EPINEPHrine 1 mg/ml auto-injector (20 sources) alpha-Adrenergic Agonist, beta-Adrenergic Agonist, Catecholamine Start: 02-28-2024 EpiPen 2-Jamal 0.3 mg injectable kit Dose : 0.3 mg =, Subcutaneous, AsDirected, PRN Allergic reaction, # 1 kit(s), 1 Refill(s), Pharmacy: [facility], 170, cm, 02/26/24 12:58:00 EST, Height, kg, 02/26/24 12:58:00 EST, Dosing Weight Start Date: 02/28/24 Status: Ordered Quantity: 1.0 Unit: kit(s) Repeat number: 2 Start: 11-08-2023 EpiPen 2-Jamal 0 .3 mg injectable kit Dose : 0.3 mg =, Subcutaneous, AsDirected, PRN Allergic reaction, # 1 kit(s), 1 Refill(s), Pharmacy: [facility], 170, cm, 09/25/23 13:05:00 EDT, Height, kg, 10/18/23 14:18:00 EDT, Dosing Weight Start Date: 11/08/23 Status: Ordered Start: 07-18-2023 EpiPen 2-Jamal 0 .3 mg injectable kit Dose : 0.3 mg =, Subcutaneous, AsDirected, PRN Allergic reaction, # 1 kit(s), 1 Refill(s), Pharmacy: [facility], 168, cm, 07/07/23 9:06:00 EDT, Height, kg, 07/07/23 9:06:00 EDT, Dosing Weight Start Date: 07/18/23 Status: Ordered Start: 08-16-2022 End: 03-19-2023 EpiPen 2-Jamal 0.3 mg injectab le kit Dose : 0.3 mg =, Subcutaneous, AsDirected, PRN Allergic reaction, # 1 kit(s), 1 Refill(s), 03/19/23 11:00:00 AM EST, Pharmacy: [facility], 173, cm, 08/04/22 13:41:00 EDT, Height, kg, 08/04/22 13:41:00 EDT, Dosing Weight Start Date: 08/16/22 Stop Date: 03/19/23 Status: Ordered Start: 10-07-2020 Epinephrine 0. 3 mg/0.3 mL auto-injector Active 0.3 mg IM Q15M as needed for anaphylaxis 2 0 October 07, 2020 12:00am for 2 doses Fluticasone Propionate (Armo newman Digihaler) 232 mcg/actuation aero powdr breath act w/sensor (14 sources) Start: 09-30-2021 End: 10-05-2021 Fluticasone Propionate (Armonair Digihaler) 232 mcg/actuation aero powdr breath act w/sensor Discontinued 1 NMA INHALATION TWICE A DAY 1 September 30, 2021 12:00am October 05, 2021 5:35am Start: 09-30-2021 End: 10-05-2021 Fluticasone Propionate (Armo newman Digihaler) 232 mcg/actuation aero powdr breath act w/sensor Discontinued 1 NMA INHALATION TWICE A DAY September 30, 2021 [...] Discontinued 1 INH INHALATION TWICE A DAY 1 September 30, 2021 12:00am October 05, 2021 5:35am Fluticasone Propionate (Flov ent Hfa) 220 mcg/actuation HFA aerosol inhaler (13 sources) Start: 10-25-2021 End: 05-13-2022 Fluticasone Propionate (Flov ent Hfa) 220 mcg/actuation HFA aerosol inhaler Discontinued 2 NMA INHALATION TWICE A DAY 02 22October 25, 2021 12:00am May 13, 2022 3:08pm [...] q12h, # 60 tab(s), 3 Refill(s), Pharmacy: [facility], 170, cm, 02/26/24 12:58:00 EST, Height, kg, 02/26/24 12:58:00 EST, Dosing Weight Start Date: 02/28/24 Stop Date: 06/27/24 Status: Ordered Quantity: 60.0 Unit: tab(s) Repeat number: 4 Start: 09-19-2022 Mucinex 600 mg oral tablet, extended release Dose : 600 mg = 1 tab(s), Oral, q12h, # 60 tab(s), 5 Refill(s), Pharmacy: [facility], 173, cm, 08/04/22 13:41:00 EDT, [...] ml insulin glargine 100 unt/ml pen injector (20 sources) Insulin Analog Start: 08-16-2024 Lantus Solosta r Pen 100 units/mL 3 mL Pen See Instructions, Inject 65 units SubQ every morning and 70 units SubQ at bedtime, # 45 mL, 6 Refill(s), Pharmacy: [facility], 167.6, cm, 08/14/24 18:14:00 EDT, Height, kg, 08/14/24 18:14:00 EDT, Dosing Weight Start Date: 08/16/24 Status: Ordered Quantity: 45.0 Unit: mL Repeat number: 7 Start: 12-14-2023 Lantus Solosta r Pen 100 units/mL 3 mL Pen See Instructions, 60 UNITS TWICE DAILY, # 90 mL, 1 Refill(s), Pharmacy: [facility], 168, cm, 12/13/23 13:57:00 EDT, [...] supply, # 15 mL, 1 Refill(s), Pharmacy: [facility], 173, cm, 10/28/22 13:51:00 EDT, Height, kg, 10/28/22 13:51:00 EDT, Dosing Weight Start Date: 10/28/22 Stop Date: 04/26/23 Status: Ordered Start: 07-02-2021 End: 12-29-2021 inject 1 dose by subcutaneous injection twice daily Lantus Solostar Pen 100 units/mL 3 mL Pen Dose : 60 unit(s) =, Subcutaneous, BID, QS for 30 day supply, # 60 mL, 1 Refill(s), Pharmacy: [facility], 169, cm, 07/02/21 15:31:00 EDT, Height, [...] admission (3 sources) Poor historian 02-19-2024 Episodic Asthma (3 sources) Exacerbation of asthma; Translations: [Asthma] 09-09-2021 Chronic Bacterial infection; unspecified site (20 sources) Bacteremia due to Methicillin resistant Staphylococcus aureus; Translations: [Bacteremia] Episodic Chronic obstructive pulmonary disease and bronchiectasis (7 sources) Asthma-chronic obstructive pulmonary disease overlap syndrome; Translations: [Chronic obstructive lung disease] 05-05-2022 Chronic Comment on above: 09/2021 [facility] FUNCTION: FINDINGS: FVC is reduced to 58, FEV1 reduced to 53 and FEV1/FVC ratio reduced at 70. No significant bronchodilator response. TLC reduced at 67, RV normal at 92, RV/TLC ratio elevated at 44. DLCO normal at 117. 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 09/2021 [facility] FUNCTION: FINDINGS: FVC is reduced to 58, [...] anemia 01-25-2022 Episodic Diabetes mellitus with complications (14 sources) Polyneuropathy due to diabetes mellitus; Translations: [Hypoglycemic disorder] 08-06-2019 Chronic Diabetes mellitus without complication (20 sources) Type 2 diabetes mellitus; Translations: [Type 2 diabetes mellitus without complications] Onset: 11-07-2024 08-06-2019 Chronic Diseases of white blood cells [...] Acute infectious conjunctivitis 07-07-2023 Episodic Nutritional deficiencies (7 sources) Vitamin D deficiency 11-17-2020 Chronic Osteoarthritis (7 sources) Osteoarthritis of multiple joints 11-01-2018 Chronic Other aftercare (1 source) Long-term current use of insulin; Translations: [senior living (current) use of insulin] Episodic Other aftercare (1 source) Post-discharge follow-up 12-19-2022 Episodic Other and ill-defined heart disease (7 sources) Cardiomegaly 09-09-2021 Chronic Other circulatory disease (2 sources) Disorder of arteries and arterioles, unspecified; Translations: [Unspecified disorders of arteries and arterioles] 07-20-2022 Chronic Other circulatory disease (7 sources) H/O: cardiovascular disease 11-01-2018 Episodic Other circulatory disease (8 sources) H/O: hypertension; Translations: [Personal history of [...] hypertension 06-07-2022 Chronic Other lower respiratory disease (20 sources) Dyspnea; Translations: [Dyspnea, unspecified] 12-07-2021 Episodic Other lower respiratory disease (20 sources) Hypoxia; Translations: [Hypoxemia] 12-07-2021 Episodic Other lower respiratory disease (7 sources) Dyspnea, unspecified; Translations: [Other respiratory abnormalities] Episodic Other lower respiratory disease (7 sources) Hypoxemia; Translations: [Hypoxemia] Episodic Other lower respiratory disease (20 sources) Cough; Translations: [Cough] 12-07-2021 Episodic Other lower respiratory disease (1 source) Chronic cough 09-09-2021 Episodic Other nervous system disorders (8 sources) Numbness and tingling sensation of skin; [...] nutritional; endocrine; and metabolic disorders (8 sources) History of hypercholesterolemia; Translations: [Personal history of other endocrine, nutritional and metabolic disease] 07-11-2022 Episodic Other nutritional; endocrine; and metabolic disorders (8 sources) History of diabetes mellitus type 2; Translations: [Personal history of other endocrine, nutritional and metabolic disease] 07-11-2022 Episodic Other screening for suspected conditions (not mental disorders or infectious disease) (14 sources) Computed tomography result abnormal; Translations: [Imaging of thorax abnormal] 09-09-2021 Chronic Other screening for suspected conditions (not mental disorders or infectious disease) (6 sources) Impaired left ventricular function; Translations: [Encounter for screening for malignant neoplasm of prostate] Onset: 11-22-2024 09-09-2021 Episodic Comment on above: Echocardiogram summa [...] unspecified organism] Episodic Poisoning by nonmedicinal substances (20 sources) Bee sting-induced anaphylaxis; Translations: [Toxic effect of venom of bees, accidental (unintentional), initial encounter] 12-07-2021 Episodic Residual codes; unclassified (20 sources) Obstructive sleep apnea syndrome; Translations: [Obstructive sleep apnea (adult) (pediatric)] 08-06-2019 Chronic Residual codes; unclassified (13 sources) 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; Translations: [Dependence on other enabling machines and devices] 12-07-2021 Chronic Residual codes; unclassified (6 sources) Edema of right lower leg 05-17-2022 Episodic Residual codes; unclassified (4 sources) Peripheral edema 06-19-2023 Episodic Residual codes; unclassified (2 sources) At risk for infection 04-01-2024 Episodic Residual codes; unclassified (2 sources) Bilateral lower limb edema 05-17-2024 Episodic Respiratory failure; insufficiency; arrest (adult) (20 [...] Classification Problem Date Documented Da te Episodic/Chronic Allergic reactions (5 sources) Contact dermatitis; Translations: [Allergic disposition] Onset: 08-14-2024 12-30-2023 Episodic Other upper respiratory infections (5 sources) Acute bacterial sinusitis; Translations: [Acute pharyngitis, unspecified] Onset: 02-19-2024 01-12-2024 Episodic Residual codes; unclassified (1 source) Procedure and treatment not carried out due to patient leaving prior to being seen by health care provider; Translations: [Procedure and treatment not carried out due to patient leaving prior to being seen by health care provider] Onset: 08-20-2024 Episodic Results Test Name Value Interpretation Reference Range Facility Anion gap in Serum or Plasma Ordered By: BOOGIE ZALDIVAR on 11-02-2024 Anion gap [Moles/Vol] 10 mmol/L 5-15 [facility] BUN/creatinine ratioOrdered By: BOOGIE ZALDIVAR on 11-02-2024 Urea nitrogen/Creatinine [Mass ratio] 15.5 mg/mg 10-20 [facility] [place] Bilirubin, totalOrdered By: BOOGIE ZALDIVAR on 11-02-2024 Bilirubin [Mass/Vol] 1.75 mg/dL High 0.00-1.30 [facility] Calculated very low density lipoprotein (VLDL) cholesterol measurementOrdered By: BOOGIE ZALDIVAR on 11-02-2024 Calculated very low density lipoprotein (VLDL) cholesterol measurement 17 mg/dL 5-40 [facility] [place] Carbon dioxide, total [Moles /volume] in Central venous bloodOrdered By: BOOGIE ZALDIVAR on 11-02-2024 CO2 [Moles/Vol] 27.0 mmol/L 21.0-32.0 [facility] Chloride assayOrdered By: CASSIE ZALDIVAR on 11-02-2024 Chloride [Moles/Vol] 105 mmol/L 98-108 [facility] Comprehensive Metabolic Prof ilon 11-02-2024 Albumin [Mass/Vol] 4.0 g/dL Normal 3.5-5.0 [facility] Comment on above: Performed By: #### L [id number], [id number], L506.1001, L500.4100 #### [facility] Laboratory [address] [place], [address] Albumin/Globulin [Mass ratio] 1.7 {ratio} Normal 0.9-2.4 [facility] [place] Comment on above: Performed By: #### L [id number], [id number], L506.1001, L500.4100 #### [facility] Laboratory [address] [place], [address] ALK PHOS 121 U/L Normal 40-129 [facility] [place] Comment on above: Performed By: #### L [id number], [id number], L506.1001, L500.4100 #### [facility] [place] Laboratory [address] [place], [address] ALT [Catalytic activity/Vol] 27 U/L Normal <=46 [facility] Comment on above: Performed By: #### L [id number], [id number], L506.1001, L500.4100 #### [facility] [place] [address] [place], [address] AST [Catalytic activity/Vol] 21 U/L Normal <=37 [facility] Comment on above: Performed By: #### L [id number], [id number], L506.1001, L500.4100 #### [facility] [place] Laboratory [address] [place], [address] Bilirubin [Mass/Vol] 1.75 mg/dL High 0.00-1.30 [facility] Comment on above: Performed By: #### L [id number], [id number], L506.1001, L500.4100 #### [facility] [address] [place], [address] BUN/CRE 15.5 RATIO Normal 10-20 [facility] Comment on above: Performed By: #### L [id number], [id number], L506.1001, L500.4100 #### [facility] Laboratory [address] [place], [address] Calcium [Mass/Vol] 8.8 mg/dL Normal 7.6-11.0 [facility] Comment on above: Performed By: #### L [id number], [id number], L506.1001, L500.4100 #### [facility] [address] [place], [address] Chloride [Moles/Vol] 105 mmol/L Normal 98-108 [facility] Comment on above: Performed By: #### L [id number], [id number], L506.1001, L500.4100 #### [facility] [address] [place], [address] CO2 [Moles/Vol] 27.0 mmol/L Normal 21.0-32.0 [facility] Comment on above: Performed By: #### L [id number], [id number], L506.1001, L500.4100 #### [facility] [place] Laboratory [address] [place], [address] Creatinine [Mass/Vol] 0.80 mg/dL Normal 0.70-1.20 [facility] Comment on above: Performed By: #### L [id number], [id number], L506.1001, L500.4100 #### [facility] [place] [address] [place], [address] GAP 10 Normal 5-15 [facility] [place] Comment on above: Performed By: #### L [id number], [id number], L506.1001, L500.4100 #### [facility] Laboratory [address] [place], [address] GFR/1.73 sq M.predicted among non-blacks MDRD (S/P/Bld) [Vol rate/Area] 105 mL/min/{1.73_m2} Normal >60 [facility] [place] Comment on above: Result Comment: mL/m in/1.73m2 CKD-EPI Creatinine Equation (2020) Performed By: #### L [id number], [id number], L506.1001, L500.4100 #### [facility] [place] Laboratory [address] [place], [address] Globulin (S) [Mass/Vol] 2.4 g/dL Normal 2.2-4.2 [facility] Comment on above: Performed By: #### L [id number], [id number], L506.1001, L500.4100 #### [facility] [place] Laboratory [address] [place], [address] Glucose [Mass/Vol] 239 mg/dL High 70-99 [facility] Comment on above: Performed By: #### L [id number], [id number], L506.1001, L500.4100 #### [facility] Laboratory [address] [place], [address] Potassium [Moles/Vol] 4.1 mmol/L Normal 3.3-5.1 [facility] Comment on above: Performed By: #### L [id number], [id number], L506.1001, L500.4100 #### [facility] Laboratory [address] [place], [address] Sodium [Moles/Vol] 141 mmol/L Normal 133-145 [facility] Comment on above: Performed By: #### L [id number], [id number], L506.1001, L500.4100 #### [facility] Laboratory [address] [place], [address] T PROT 6.4 g/dL Normal 5.9-8.4 [facility] Comment on above: Performed By: #### L [id number], [id number], L506.1001, L500.4100 #### [facility] Laboratory [address] [place], [address] Urea nitrogen [Mass/Vol] 12 mg/dL Normal 4-19 [facility] Comment on above: Performed By: #### L [id number], [id number], L506.1001, L500.4100 #### [facility] Laboratory [address] [place], [address] Glomerular filtration rate ( GFR) estimation/1.73 sq m using serum, plasma, or whole bOrdered By: BOOGIE ZALDIVAR on 11-02-2024 GFR/1.73 sq M.predicted among non-blacks MDRD (S/P/Bld) [Vol rate/Area] 105 mL/min/{1.73_m2} >60 [facility] Comment on above: mL/min/1.73m2 CKD-EP I Creatinine Equation (2020) Hemoglobin A1c percentageOrd ered By: BOOGIE ZALDIVAR on 11-02-2024 HbA1c (Bld) [Mass fraction] 10.5 % High <=5.6 [facility] Comment on above: Normal < 5.7 % Predi abetic 5.7 - 6.4 % Diabetic >or= 6.5 % Please note range changes. Result Comment: Norm al < 5.7 % Prediabetic 5.7 - 6.4 % Diabetic >or= 6.5 % Please note range changes. Performed By: #### L 501.9985, [id number], L506.1001, L500.4100 #### [facility] Laboratory [address] [place], [address] LDL calc ser/plasOrdered By: BOOGIE ZALDIVAR on 11-02-2024 Cholesterol in LDL [Mass/Vol] 121 mg/dL [facility] Comment on above: Ldgsxgvggd=398-214 m g/dL & Higher Mryy=698 mg/dL or greaterFriedwald Equation for LDL-C Laboratory - Chemistry and C hemistry - challengeOrdered By: BOOGIE ZALDIVAR on 11-02-2024 AST [Catalytic activity/Vol] 21 U/L <38 [facility] Lipid Profileon 11-02-2024 CHOL:HDL 4.28 Normal [facility] Comment on above: Performed By: #### L [id number], [id number], L506.1001, L500.4100 #### [facility] Laboratory [address] [place], [address] Cholesterol [Mass/Vol] 180 mg/dL Normal <=200 [facility] Comment on above: Result Comment: Chol esterol level, Desirable <200 mg/dL Borderline high cholesterol 200-239 mg/dL High cholesterol >=240 mg/dL Recommendations of the NCEP Adult Treatment Panel for the following risk-cutoff thresholds for the [place] population. Performed By: #### L [id number], [id number], L506.1001, L500.4100 #### [facility] Laboratory [address] [place], [address] Cholesterol in HDL [Mass/Vol] 42 mg/dL Normal [facility] Comment on above: Result Comment: Liza onal Cholesterol Education Program (NCEP) guidelines: <40 mg/dL: Low HDL-cholesterol (major risk factor for CHD) >= 60 mg/dL: High HDL-cholesterol (negative risk factor for CHD) HDL-cholesterol is affected by a number of factors, e.g. smoking, exercise, hormones, sex and age. Performed By: #### L [id number], [id number], L506.1001, L500.4100 #### [facility] Laboratory [address] [place], [address] Cholesterol in LDL [Mass/Vol] 121 mg/dL Normal [facility] Comment on above: Result Comment: Bord dkgjmf=628-596 mg/dL Higher Daew=091 mg/dL or greater Friedwald Equation for LDL-C Performed By: #### L [id number], [id number], L506.1001, L500.4100 #### [facility] Laboratory [address] [place], [address] Cholesterol in VLDL [Mass/Vol] 17 mg/dL Normal 5-40 [facility] Comment on above: Performed By: #### L [id number], [id number], L506.1001, L500.4100 #### [facility] Laboratory [address] [place], [address] Triglyceride [Mass/Vol] 84 mg/dL Normal [facility] Comment on above: Result Comment: The drugs N-Acetylcysteine and Metamizole may falsely depress this assay. Normal range: <150 mg/dL Borderline High: 150-199 mg/dL High: 200-499 mg/dL Very High: >500 mg/dL Performed By: #### L [id number], [id number], L506.1001, L500.4100 #### [facility] Laboratory [address] [place], [address] Potassium measurement (mass/ volume)Ordered By: BOOGIE ZLADIVAR on 11-02-2024 Potassium (Unsp spec) [Mass/Vol] 4.1 mmol/L 3.3-5.1 [facility] Screening total cholesterol/ high density lipoprotein (HDL) cholesterol ratioOrdered By: BOOGIE ZALDIVAR on 11-02-2024 Cholesterol.total/Jyothi sterol in HDL [Mass ratio] 4.28 {ratio} [facility] Serum creatinine measurement (mass/volume)Ordered By: BOOGIE ZALDIVAR on 11-02-2024 Creatinine [Mass/Vol] 0.80 mg/dL 0.70-1.20 [facility] Serum globulin measurementOr dered By: BOOGIE ZALDIVAR on 11-02-2024 Globulin (S) [Mass/Vol] 2.4 g/dL 2.2-4.2 [facility] Serum glucose measurement (m ass/volume)Ordered By: BOOGIE ZALDIVAR on 11-02-2024 Glucose [Mass/Vol] 239 mg/dL High 70-99 [facility] Serum or plasma alanine troy otransferase (ALT) measurementOrdered By: BOOGIE ZALDIVAR on 11-02-2024 ALT [Catalytic activity/Vol] 27 U/L <47 [facility] Serum or plasma albumin david urement (mass/volume)Ordered By: BOOGIE ZALDIVAR 11-02-2024 Albumin [Mass/Vol] 4.0 g/dL 3.5-5.0 [facility] Serum or plasma albumin/glob ulin mass ratioOrdered By: BOOGIE ZALDIVAR 11-02-2024 Albumin/Globulin [Mass ratio] 1.7 {ratio} 0.9-2.4 [facility] Serum or plasma alkaline srikanth sphatase measurementOrdered By: BOOGIE ZALDIVAR 11-02-2024 ALP [Catalytic activity/Vol] 121 U/L 40-129 [facility] Serum or plasma calcium david urement (mass/volume)Ordered By: BOOGIE ZALDIVAR 11-02-2024 Calcium [Mass/Vol] 8.8 mg/dL 7.6-11.0 [facility] Serum or plasma cholesterol in HDL measurement (mass/volume)Ordered By: BOOGIE ZALDIVAR 11-02-2024 Cholesterol in HDL [Mass/Vol] 42 mg/dL >40 [facility] [place] Comment on above: National Cholesterol Education Program (NCEP) guidelines:<40 mg/dL: Low HDL-cholesterol (major risk factor for CHD)>= 60 mg/dL: High HDL-cholesterol (negative risk factor for CHD)HDL-cholesterol is affected by a number of factors, e.g. smoking, exercise, hormones, sex and age. Serum or plasma cholesterol measurement (mass/volume)Ordered By: BOOGIE ZALDIVAR on 11-02-2024 Cholesterol [Mass/Vol] 180 mg/dL <201 [facility] Comment on above: Cholesterol level, D esirable <200 mg/dLBorderline high cholesterol 200-239 mg/dLHigh cholesterol >=240 mg/dLRecommendations of the NCEP Adult Treatment Panel for the following risk-cutoff thresholds for the [place] population. Serum or plasma urea nitroge n measurement (mass/volume)Ordered By: BOOGIE ZALDIVAR on 11-02-2024 Urea nitrogen [Mass/Vol] 12 mg/dL 4-19 [facility] [place] Sodium levelOrdered By: FAY ZALDIVAR on 11-02-2024 Sodium [Moles/Vol] 141 mmol/L 133-145 [facility] Total proteinOrdered By: BERNIE ZALDIVAR on 11-02-2024 Protein [Mass/Vol] 6.4 g/dL 5.9-8.4 [facility] Triglycerides measurementOrd ered By: BOOGIE ZALDIVAR on 11-02-2024 Triglyceride [Mass/Vol] 84 mg/dL <199 [facility] Comment on above: The drugs N-Acetylcy steine and Metamizole may falsely depress this assay. Normal range: <150 mg/dLBorderline High: 150-199 mg/dLHigh: 200-499 mg/dLVery High: >500 mg/dL Vitamin D,25 Hydroxyon 11-02 Vitamin D 25-OH 21.7 ng/mL Low 30-100 [facility] [place] Comment on above: Result Comment: Ester min D Status Deficiency: <20 ng/mL (50nmol/L) Insufficiency: 20-30 ng/mL (50-75 nmol/L) Sufficiency: 30-100 ng/mL (75-250 nmol/L) Toxicity: >100 ng/mL (>250 nmol/L) Performed By: #### L 501.9985, L500.4050, L506.1001, L500.4100 #### [facility] [place] Laboratory [facility] [place], [address] Albumin to globulin ratioOrd ered By: BOOGIE ZALDIVAR on 04-29-2024 Albumin/Globulin [Mass ratio] 0.9 {ratio} 0.9-2.4 [facility] [place] Bilirubin, totalOrdered By: BOOGIE ZALDIVAR on 04-29-2024 Bilirubin [Mass/Vol] 1.90 mg/dL High 0.20-1.00 [facility] Comment on above: For patients on eltr ombopag therapy, use of Dimension [place] TBIL is not recommended. Blood urea nitrogen (BUN)/cr eatinine ratioOrdered By: BOOGIE ZALDIVAR on 04-29-2024 Urea nitrogen/Creatinine [Mass ratio] 21.1 mg/mg High 10-20 [facility] [place] Carbon dioxide measurementOr dered By: BOOGIE ZALDIVAR on 04-29-2024 CO2 [Moles/Vol] 27.0 mmol/L 21.0-32.0 [facility] [place] Chloride measurementOrdered By: BOOGIE ZALDIVAR on 04-29-2024 Chloride [Moles/Vol] 106 mmol/L 98-107 [facility] Comprehensive Metabolic Prof ilon 04-29-2024 Albumin [Mass/Vol] 3.3 g/dL Normal 3.2-5.0 [facility] Comment on above: Performed By: #### L 500.4050, L501.9985, L501.9910, L500.4100, L502.0250 #### [facility] [place] Laboratory [address] [place], [address] Albumin/Globulin [Mass ratio] 0.9 {ratio} Normal 0.9-2.4 [facility] [place] Comment on above: Performed By: #### L 500.4050, L501.9985, L501.9910, L500.4100, L502.0250 #### [facility] [place] Laboratory [address] [place], [address] ALK P 128 U/L High 45-117 [facility] [place] Comment on above: Performed By: #### L 500.4050, L501.9985, L501.9910, L500.4100, L502.0250 #### [facility] [place] Laboratory [address] [place], [address] ALT [Catalytic activity/Vol] 38 U/L Normal 16-61 [facility] [place] Comment on above: Performed By: #### L 500.4050, L501.9985, L501.9910, L500.4100, L502.0250 #### [facility] [place] Laboratory [address] [place], [address] AST [Catalytic activity/Vol] 20 U/L Normal 15-37 [facility] [place] Comment on above: Performed By: #### L 500.4050, L501.9985, L501.9910, L500.4100, L502.0250 #### [facility] [place] Laboratory [address] [place], [address] Bilirubin [Mass/Vol] 1.90 mg/dL High 0.20-1.00 [facility] Comment on above: Result Comment: For patients on eltrombopag therapy, use of Dimension [place] TBIL is not recommended. Performed By: #### L 500.4050, L501.9985, L501.9910, L500.4100, L502.0250 #### [facility] [place] Laboratory [address] [place], [address] BUN/CRE 21.1 RATIO High 10-20 [facility] [place] Comment on above: Performed By: #### L 500.4050, L501.9985, L501.9910, L500.4100, L502.0250 #### [facility] [place] Laboratory [address] [place], [address] CA,Total 8.7 mg/dL Normal 8.5-10.1 [facility] [place] Comment on above: Performed By: #### L 500.4050, L501.9985, L501.9910, L500.4100, L502.0250 #### [facility] [place] Laboratory [address] [place], [address] Chloride [Moles/Vol] 106 mmol/L Normal 98-107 [facility] Comment on above: Performed By: #### L 500.4050, L501.9985, L501.9910, L500.4100, L502.0250 #### [facility] [place] Laboratory [address] [place], [address] CO2 [Moles/Vol] 27.0 mmol/L Normal 21.0-32.0 [facility] [place] Comment on above: Performed By: #### L 500.4050, L501.9985, L501.9910, L500.4100, L502.0250 #### [facility] [place] Laboratory [address] [place], [address] Creatinine [Mass/Vol] 0.85 mg/dL Normal 0.70-1.30 [facility] Comment on above: Result Comment: The validity of the calculated GFR GFRAA in patients over 70 years has not been determined. Clinical correlation is essential. Performed By: #### L 500.4050, L501.9985, L501.9910, L500.4100, L502.0250 #### [facility] [place] Laboratory [address] [place], [address] EST GFR - AA 120 mL/min Normal >60 [facility] [place] Comment on above: Result Comment: Afri can [place] GFR Calc Performed By: #### L 500.4050, L501.9985, L501.9910, L500.4100, L502.0250 #### [facility] [place] Laboratory [address] [place], [address] GAP 8 Normal 5-15 [facility] [place] Comment on above: Performed By: #### L 500.4050, L501.9985, L501.9910, L500.4100, L502.0250 #### [facility] [place] Laboratory [address] [place], [address] GFR/1.73 sq M.predicted among non-blacks MDRD (S/P/Bld) [Vol rate/Area] 99 mL/min/{1.73_m2} Normal >60 [facility] [place] Comment on above: Result Comment: Non- GFR Calc Performed By: #### L 500.4050, L501.9985, L501.9910, L500.4100, L502.0250 #### [facility] [place] Laboratory [address] [place], [address] Globulin (S) [Mass/Vol] 3.6 g/dL Normal 2.2-4.2 [facility] Comment on above: Performed By: #### L 500.4050, L501.9985, L501.9910, L500.4100, L502.0250 #### [facility] [place] Laboratory [address] [place], [address] Glucose [Mass/Vol] 175 mg/dL High 74-106 [facility] Comment on above: Result Comment: Fast ing Glucose result greater than or equal to 126 mg/dL suggests DIABETES MELLITUS per A.D.A. criteria. Performed By: #### L 500.4050, L501.9985, L501.9910, L500.4100, L502.0250 #### [facility] [place] Laboratory [address] [place], [address] Potassium [Moles/Vol] 3.8 mmol/L Normal 3.5-5.1 [facility] Comment on above: Performed By: #### L 500.4050, L501.9985, L501.9910, L500.4100, L502.0250 #### [facility] [place] Laboratory [address] [place], [address] Sodium [Moles/Vol] 141 mmol/L Normal 136-145 [facility] Comment on above: Performed By: #### L 500.4050, L501.9985, L501.9910, L500.4100, L502.0250 #### [facility] [place] Laboratory [address] [place], [address] T PROT 6.9 g/dL Normal 6.4-8.2 [facility] [place] Comment on above: Performed By: #### L 500.4050, L501.9985, L501.9910, L500.4100, L502.0250 #### [facility] [place] Laboratory [address] [place], [address] Urea nitrogen [Mass/Vol] 18 mg/dL Normal 7-18 [facility] [place] Comment on above: Performed By: #### L 500.4050, L501.9985, L501.9910, L500.4100, L502.0250 #### [facility] [place] Laboratory [address] [place], [place], [address] Glomerular filtration rate ( GFR) estimationOrdered By: BOOGIE ZALDIVAR on 04-29-2024 GFR/1.73 sq M.predicted among non-blacks MDRD (S/P/Bld) [Vol rate/Area] 99 mL/min/{1.73_m2} >60 [facility] [place] Comment on above: Non- GFR Calc Glucose measurementOrdered B y: BOOGIE ZALDIVAR on 04-29-2024 Glucose [Mass/Vol] 175 mg/dL High 74-106 [facility] Comment on above: Fasting Glucose resu lt greater than or equal to 126 mg/dL suggests DIABETES MELLITUS per A.D.A. criteria. Hemoglobin A1con 04-29-2024 HbA1c (Bld) [Mass fraction] 9.5 % High 3.8-5.6 [facility] [place] Comment on above: Result Comment: Norm al < 5.7 % Prediabetic 5.7 - 6.4 % Diabetic >or= 6.5 % Please note range changes. Performed By: #### L 500.4050, L501.9985, L501.9910, L500.4100, L502.0250 #### [facility] [place] Laboratory [address] [place], [address] Hemoglobin A1c percentageOrd ered By: BOOGIE ZALDIVAR on 04-29-2024 HbA1c (Bld) [Mass fraction] 9.5 % High 3.8-5.6 [facility] [place] Comment on above: Normal < 5.7 % Predi abetic 5.7 - 6.4 % Diabetic >or= 6.5 % Please note range changes. High density lipoprotein (HD L) measurementOrdered By: BOOGIE ZALDIVAR on 04-29-2024 Cholesterol in HDL [Mass/Vol] 51 mg/dL >40 [facility] [place] Comment on above: The drugs N-Acetylcy steine and Metamizole may falsely depress this assay. Reference Range HDL <40 mg/dL Low HDL Cholesterol HDL >or= 60 mg/dL High HDL Cholesterol Laboratory - Chemistry and C hemistry - challengeOrdered By: BOOGIE ZALDIVAR on 04-29-2024 AST [Catalytic activity/Vol] 20 U/L 15-37 [facility] [place] Lipid Profileon 04-29-2024 Cholesterol [Mass/Vol] 191 mg/dL Normal 200 [facility] Comment on above: Result Comment: <200 mg/dL Desirable 200-240 mg/dL Borderline >240 mg/dL High Risk Performed By: #### L 500.4050, L501.9985, L501.9910, L500.4100, L502.0250 #### [facility] [place] Laboratory [address] [place], [address] Cholesterol in HDL [Mass/Vol] 51 mg/dL Normal [facility] [place] Comment on above: Result Comment: The drugs N-Acetylcysteine and Metamizole may falsely depress this assay. Reference Range HDL <40 mg/dL Low HDL Cholesterol HDL >or= 60 mg/dL High HDL Cholesterol Performed By: #### L 500.4050, L501.9985, L501.9910, L500.4100, L502.0250 #### [facility] [place] Laboratory [address] [place], [address] Cholesterol in LDL [Mass/Vol] 121 mg/dL Normal 0-130 [facility] [place] Comment on above: Performed By: #### L 500.4050, L501.9985, L501.9910, L500.4100, L502.0250 #### [facility] [place] Laboratory [address] [place], [address] Cholesterol in VLDL [Mass/Vol] 19 mg/dL Normal 5-40 [facility] [place] Comment on above: Performed By: #### L 500.4050, L501.9985, L501.9910, L500.4100, L502.0250 #### [facility] [place] Laboratory [address] [place], [place], [address] Triglyceride [Mass/Vol] 97 mg/dL Normal [facility] Comment on above: Result Comment: The drugs N-Acetylcysteine and Metamizole may falsely depress this assay. Serum Triglycerides Reference Interval Normal <150 mg/dL Borderline high 150 - 199 mg/dL High 200 - 499 mg/dL Very High > or = 500 mg/dL Performed By: #### L 500.4050, L501.9985, L501.9910, L500.4100, L502.0250 #### [facility] [place] Laboratory [address] [place], [address] Low density lipoprotein (LDL ) cholesterol measurementOrdered By: BOOGIE ZALDIVAR on 04-29-2024 Cholesterol in LDL [Mass/Vol] 121 mg/dL 0-130 [facility] [place] Microalb:Creat Ratio,Random URon 04-29-2024 Creatinine [Mass/Vol] 173.00 mg/dL Normal NO RAN GE EST. [facility] [place] Comment on above: Performed By: #### L 500.4050, L501.9985, L501.9910, L500.4100, L502.0250 #### [facility] [place] Laboratory [address] [place], [address] MALB:CRE 23.4 mg/g CRE Normal <30 mg/g CRE [facility] Comment on above: Performed By: #### L 500.4050, L501.9985, L501.9910, L500.4100, L502.0250 #### [facility] Laboratory [address] [place], [address] MICROALBUMIN,UR 40.5 mg/L Normal NO RANGE EST. [facility] [place] Comment on above: Performed By: #### L 500.4050, L501.9985, L501.9910, L500.4100, L502.0250 #### [facility] [place] Laboratory [address] [place], [address] PSA,Total - Annual Screenon 04-29-2024 PSA,TOT SCREEN 0.84 ng/mL Normal 0.00-4.00 [facility] [place] Comment on above: Result Comment: This test was performed using the TPSA assay method for the [employer] chemistry system. Values obtained with different assay methods cannot be used interchangably. When changing PSA assays in the course of monitoring a patient, additional sequential testing should be carried out to confirm baseline values. Performed By: #### L 500.4050, L501.9985, L501.9910, L500.4100, L502.0250 #### [facility] [place] Laboratory [address] [place], [address] Potassium measurementOrdered By: BOOGIE ZALDIVAR on 04-29-2024 Potassium [Moles/Vol] 3.8 mmol/L 3.5-5.1 [facility] Serum anion gap measurementO rdered By: BOOGIE ZALDIVAR on 04-29-2024 Anion gap [Moles/Vol] 8 mmol/L 5-15 [facility] Serum globulin measurementOr dered By: BOOGIE ZALDIVAR on 04-29-2024 Globulin (S) [Mass/Vol] 3.6 g/dL 2.2-4.2 [facility] Serum or plasma alanine troy otransferase (ALT) measurementOrdered By: BOOGIE ZALDIVAR on 04-29-2024 ALT [Catalytic activity/Vol] 38 U/L 16-61 [facility] Serum or plasma albumin david urement (mass/volume)Ordered By: BOOGIE ZALDIVAR on 04-29-2024 Albumin [Mass/Vol] 3.3 g/dL 3.2-5.0 [facility] Serum or plasma alkaline srikanth sphatase measurementOrdered By: BOOGIE ZALDIVAR on 04-29-2024 ALP [Catalytic activity/Vol] 128 U/L High 45-117 [facility] [place] Serum or plasma calcium david urement (mass/volume)Ordered By: BOOGIE ZALDIVAR on 04-29-2024 Calcium [Mass/Vol] 8.7 mg/dL 8.5-10.1 [facility] Serum or plasma cholesterol measurement (mass/volume)Ordered By: BOOGIE ZALDIVAR on 04-29-2024 Cholesterol [Mass/Vol] 191 mg/dL <200 [facility] Comment on above: <200 mg/dL Desirable 200-240 mg/dL Borderline >240 mg/dL High Risk Serum or plasma creatinine m easurement (mass/volume)Ordered By: BOOGIE ZALDIVAR on 04-29-2024 Creatinine [Mass/Vol] 0.85 mg/dL 0.70-1.30 [facility] Comment on above: The validity of the calculated GFR & GFRAA in patients over 70 years has not been determined. Clinical correlation is essential. Serum or plasma urea nitroge n measurement (mass/volume)Ordered By: BOOGIE ZALDIVAR on 04-29-2024 Urea nitrogen [Mass/Vol] 18 mg/dL 7-18 [facility] [place] Sodium levelOrdered By: FAY ZALDIVAR on 04-29-2024 Sodium [Moles/Vol] 141 mmol/L 136-145 [facility] Total proteinOrdered By: BERNIE ZALDIVAR on 04-29-2024 Protein [Mass/Vol] 6.9 g/dL 6.4-8.2 [facility] Triglycerides measurementOrd ered By: BOOGIE ZALDIVAR on 04-29-2024 Triglyceride [Mass/Vol] 97 mg/dL <199 [facility] Comment on above: The drugs N-Acetylcy steine and Metamizole may falsely depress this assay.Serum Triglycerides Reference Interval Normal <150 mg/dL Borderline high 150 - 199 mg/dL High 200 - 499 mg/dL Very High > or = 500 mg/dL Urine creatinine measurement (mass/volume)Ordered By: BOOGIE ZALDIVAR on 04-29-2024 Creatinine (U) [Mass/Vol] 173.00 mg/dL NO RANGE EST. [facility] Very low density lipoprotein (VLDL) cholesterol measurementOrdered By: BOOGIE ZALDIVAR on 04-29-2024 Very low density lipoprotein (VLDL) cholesterol measurement 19 mg/dL 5-40 [facility] LABORATORYOrdered By: Elton son on 02-19-2024 Group [...] Strep PCR Not detected Normal Not Detected [facility] Comment on above: Performed By: #### S CARLOS #### [facility] [address] [place] [id number] Group A Strep PCR Int Normal L [facility] Comment on above: Result Comment: Nega tive [...] Interp Performed By: #### S CARLOS #### [facility] [place] [address] [place], [place] [address] Basophil percentageOrdered B y: David Cummins on 06-15-2023 Bilirubin [Mass/Vol] 1.70 mg/dL 0.20-1.00 [facility] Comment on above: For patients on eltr ombopag therapy, use of Dimension [place] TBIL is not recommended. Chloride [Moles/Vol] 108 mmol/L 98-107 [facility] Glucose [Mass/Vol] 226 mg/dL 74-106 [facility] Comment on above: Glucose result great er than or equal to 200 mg/dLsuggests DIABETES MELLITUS per A.D.A. criteria. Potassium [Moles/Vol] 3.7 mmol/L 3.5-5.1 [facility] Protein [Mass/Vol] 6.8 g/dL 6.4-8.2 [facility] Sodium [Moles/Vol] 139 mmol/L 136-145 [facility] Laboratory - Chemistry and C hemistry - challengeOrdered By: David Cummins on 06-15-2023 Albumin/Globulin [Mass ratio] 1.1 {ratio} 0.9-2.4 [facility] ALP [Catalytic activity/Vol] 112 U/L 45-117 [facility] ALT [Catalytic activity/Vol] 28 U/L 16-61 [facility] CO2 [Moles/Vol] 25.0 mmol/L 21.0-32.0 [facility] [place] Globulin (S) [Mass/Vol] 3.3 g/dL 2.2-4.2 [facility] Urea nitrogen/Creatinine [Mass ratio] 10.4 mg/mg 10-20 [facility] No Panel InformationOrdered By: David Cummins on 06-15-2023 Estimated GFR (MDRD) Amer 136 mL/min >60 [facility] Comment on above: GFR Calc Estimated GFR (MDRD) Non-Af Amer 113 mL/min >60 [facility] Comment on above: Non- GFR Calc Urine Microalbumin/Creatinine Ratio 19.3 mg/g CRE <30 [facility] Serum or plasma calcium david urement (mass/volume)Ordered By: David Cummins on 06-15-2023 Calcium [Mass/Vol] 8.4 mg/dL 8.5-10.1 [facility] Serum or plasma creatinine m easurement (mass/volume)Ordered By: David Cummins on 06-15-2023 Creatinine [Mass/Vol] 0.77 mg/dL 0.70-1.30 [facility] Comment on above: The validity of the calculated GFR & GFRAA in patients over 70 years has not been determined. Clinical correlation is essential. Serum or plasma urea nitroge n measurement (mass/volume)Ordered By: David Cummins on 06-15-2023 Urea nitrogen [Mass/Vol] 8 mg/dL 7-18 [facility] Thin prep Papanicolaou smear with manual screeningOrdered By: David Cummins on 06-15-2023 Thin prep Papanicolaou smear with manual screening 3.5 g/dL 3.2-5.0 [facility] Thin prep Papanicolaou smear with manual screening 17 U/L 15-37 [facility] Thin prep Papanicolaou smear with manual screening 6 5-15 [facility] Thin prep Papanicolaou smear with manual screening 31.4 mg/L NO RANGE EST. [facility] Urine creatinine measurement (mass/volume)Ordered By: David Cummins on 06-15-2023 Creatinine (U) [Mass/Vol] 163.00 mg/dL NO RANGE EST. [facility] Whole blood hemoglobin A1c/t otal hemoglobin ratio (mass fraction)Ordered By: David Cummins on 06-15-2023 HbA1c (Bld) [Mass fraction] 9.0 % 3.8-5.6 [facility] Comment on above: Normal < 5.7 % Predi abetic 5.7 - 6.4 % Diabetic >or= 6.5 % Please note range changes. .Auto Diffon 12-08-2022 Basophil, Absolute 0.1 10 3/mcL Normal 0.0-0.3 [facility] ([place]) Comment on above: Performed By: #### P HOS, CKMB, CKMBM, MG, TROPHS #### [facility] [address] [place] [address] Basophils/100 WBC (Bld) 0.7 % Normal 0.0-2.5 [facility] ([place]) Comment on above: Performed By: #### P HOS, CKMB, CKMBM, MG, TROPHS #### [address] [address] Eosinophil, Absolute 0.4 10 3/mcL Normal 0.0-0.7 [facility] ([place] Comment on above: Performed By: #### P HOS, CKMB, CKMBM, MG, TROPHS #### [address] [address] Eosinophils/100 WBC (Bld) 3.9 % Normal 0.0-6.0 [facility] ([place] Comment on above: Performed By: #### P HOS, CKMB, CKMBM, MG, TROPHS #### [address] [address] Lymphocyte, Absolute 0.8 10 3/mcL Low 0.9-4.3 [facility] ([place] Comment on above: Performed By: #### P HOS, CKMB, CKMBM, MG, TROPHS #### [address] [address] Lymphocytes/100 WBC (Bld) 8.4 % Low 20.0-40.0 [facility] ([place] Comment on above: Performed By: #### P HOS, CKMB, CKMBM, MG, TROPHS #### [address] [address] Monocyte, Absolute 0.8 10 3/mcL Normal 0.1-1.4 [facility] ([place] Comment on above: Performed By: #### P HOS, CKMB, CKMBM, MG, TROPHS #### [address] [address] Monocytes/100 WBC (Bld) 8.1 % Normal 2.0-13.0 [facility] ([place]) Comment on above: Performed By: #### P HOS, CKMB, CKMBM, MG, TROPHS #### [address] [address] Neutrophils/100 WBC (Bld) 78.9 % High 50.0-75.0 [facility] ([place]) Comment on above: Performed By: #### P HOS, CKMB, CKMBM, MG, TROPHS #### [address] [address] .GFRon 12-08-2022 GFR >60 Normal [facility] ([place]) Comment on above: Result Comment: GFR Population [...] P HOS, CKMB, CKMBM, MG, TROPHS #### [address] [address] GFR Non- >60 Normal [facility] ([place] Comment on above: Result Comment: GFR Population [...] P HOS, CKMB, CKMBM, MG, TROPHS #### [address] [address] .NEUABSon 12-08-2022 Neutrophil, Absolute 7.6 10 3/mcL Normal 2.3-8.1 [facility] ([place]) Comment on above: Performed By: #### P HOS, CKMB, CKMBM, MG, TROPHS #### [address] [address] BMPon 12-08-2022 BUN/Creatinine Ratio 20.6 ratio Normal 10.0-22.0 [facility] ([place]) Comment on above: Performed By: #### P HOS, CKMB, CKMBM, MG, TROPHS #### [place] [id number] Calcium [Mass/Vol] 8.9 mg/dL Normal 8.7-10.4 [facility] ([place]) Comment on above: Performed By: #### P HOS, CKMB, CKMBM, MG, TROPHS #### [place] [address] Chloride [Moles/Vol] 106 mmol/L Normal 98-110 [facility] ([place]) Comment on above: Performed By: #### P HOS, CKMB, CKMBM, MG, TROPHS #### [address] [address] CO2 [Moles/Vol] 32 mmol/L Normal 22-32 [facility] ([place] Comment on above: Performed By: #### P HOS, CKMB, CKMBM, MG, TROPHS #### [address] [address] Creatinine [Mass/Vol] 0.68 mg/dL Normal 0.60-1.40 [facility] ([place]) Comment on above: Performed By: #### P HOS, CKMB, CKMBM, MG, TROPHS #### [address] [address] Electrolyte Balance 1.0 mEq/L Low 4.0-15.0 [facility] ([place]) Comment on above: Performed By: #### P HOS, CKMB, CKMBM, MG, TROPHS #### [address] [address] Glucose [Mass/Vol] 202 mg/dL High 70-110 [facility] ([place]) Comment on above: Performed By: #### P HOS, CKMB, CKMBM, MG, TROPHS #### [place] [address] Potassium [Moles/Vol] 4.6 mmol/L Normal 3.5-5.0 [facility] ([place] Comment on above: Performed By: #### P HOS, CKMB, CKMBM, MG, TROPHS #### [place] [id number] Sodium [Moles/Vol] 139 mmol/L Normal 136-145 [facility] ([place] Comment on above: Performed By: #### P HOS, CKMB, CKMBM, MG, TROPHS #### [place] [address] Urea nitrogen [Mass/Vol] 14.0 mg/dL Normal 8.0-22.0 [facility] ([place]) Comment on above: Performed By: #### P HOS, CKMB, CKMBM, MG, TROPHS #### [place] [address] CBCon 12-08-2022 Erythrocyte distribution width (RBC) [Ratio] 13.8 % Normal 11.5-15.5 [facility] ([place] Comment on above: Performed By: #### P HOS, CKMB, CKMBM, MG, TROPHS #### [place] [address] Hematocrit (Bld) [Volume fraction] 39.4 % Low 40.0-52.0 [facility] ([place] Comment on above: Performed By: #### P HOS, CKMB, CKMBM, MG, TROPHS #### [place] [address] Hgb 13.3 G/dL Normal 13.0-17.5 [facility] ([place] Comment on above: Performed By: #### P HOS, CKMB, CKMBM, MG, TROPHS #### [place] [address] MCH (RBC) [Entitic mass] 28.8 pg Normal 27.0-33.0 [facility] ([place] Comment on above: Performed By: #### P HOS, CKMB, CKMBM, MG, TROPHS #### [place] [address] MCHC 33.9 G/dL Normal 32.0-36.0 [facility] ([place] Comment on above: Performed By: #### P HOS, CKMB, CKMBM, MG, TROPHS #### [place] [address] MCV (RBC) [Entitic vol] 84.8 fL Normal 81.0-100.0 [facility] ([place] Comment on above: Performed By: #### P HOS, CKMB, CKMBM, MG, TROPHS #### [place] [address] Platelet 275 10 3/mcL Normal 150-450 [facility] ([place] Comment on above: Performed By: #### P HOS, CKMB, CKMBM, MG, TROPHS #### [place] [address] Platelet mean volume (Bld) [Entitic vol] 9.2 fL Normal 6.4-10.5 [facility] ([place] Comment on above: Performed By: #### P HOS, CKMB, CKMBM, MG, TROPHS #### [place] [address] RBC 4.64 10 6/mcL Normal 4.50-6.00 [facility] ([place] Comment on above: Performed By: #### P HOS, CKMB, CKMBM, MG, TROPHS #### [place] [address] WBC 9.7 10 3/mcL Normal 4.5-10.8 [facility] ([place] Comment on above: Performed By: #### P HOS, CKMB, CKMBM, MG, TROPHS #### [place] [address] LABORATORYOrdered By: Juan David Wells on 12-08-2022 Blood Glucose Testing Reason Routine (12/08/22 12:04 PM) [facility] Work Phone: Glucose [Mass/Vol] 268 mg/dL Invalid Interpretation Code 70 - 110 mg/dL [facility] Work Phone: LABORATORYOrdered By: Ignacia Lopez on 12-08-2022 Blood Glucose Testing Reason Routine (12/08/22 8:35 AM) [facility] Work Phone: Glucose [Mass/Vol] 192 mg/dL Invalid Interpretation Code 70 - 110 mg/dL [facility] Work Phone: LABORATORYOrdered By: SYSTEM SYSTEM on [...] 27.0 - 33.0 pg Workflow SS MCHC 33.9 G/dL Invalid Interpretation [...] 4.5 - 10.8 10^3/mcL AH Workflow SS No Panel Informationon 12-08 GS Rare Gram Positive Cocci [facility] Work Phone: .Auto Diffon 12-07-2022 Basophil, Absolute 0.1 10 3/mcL Normal 0.0-0.3 [facility] ([place]) Comment on above: Performed By: #### P HOS, CKMB, CKMBM, MG, TROPHS #### [address] [address] Basophils/100 WBC (Bld) 0.4 % Normal 0.0-2.5 [facility] ([place]) Comment on above: Performed By: #### P HOS, CKMB, CKMBM, MG, TROPHS #### [address] [address] Eosinophil, Absolute 0.3 10 3/mcL Normal 0.0-0.7 [facility] ([place]) Comment on above: Performed By: #### P HOS, CKMB, CKMBM, MG, TROPHS #### [address] [address] Eosinophils/100 WBC (Bld) 2.1 % Normal 0.0-6.0 [facility] ([place]) Comment on above: Performed By: #### P HOS, CKMB, CKMBM, MG, TROPHS #### [address] [address] Lymphocyte, Absolute 1.0 10 3/mcL Normal 0.9-4.3 [facility] ([place] Comment on above: Performed By: #### P HOS, CKMB, CKMBM, MG, TROPHS #### [address] [address] Lymphocytes/100 WBC (Bld) 7.4 % Low 20.0-40.0 [facility] ([place]) Comment on above: Performed By: #### P HOS, CKMB, CKMBM, MG, TROPHS #### [address] [address] Monocyte, Absolute 0.9 10 3/mcL Normal 0.1-1.4 [facility] ([place]) Comment on above: Performed By: #### P HOS, CKMB, CKMBM, MG, TROPHS #### [address] [address] Monocytes/100 WBC (Bld) 7.1 % Normal 2.0-13.0 [facility] ([place]) Comment on above: Performed By: #### P HOS, CKMB, CKMBM, MG, TROPHS #### [address] [address] Neutrophils/100 WBC (Bld) 83.0 % High 50.0-75.0 [facility] ([place]) Comment on above: Performed By: #### P HOS, CKMB, CKMBM, MG, TROPHS #### [address] [address] .GFRon 12-07-2022 GFR >60 Normal [facility] ([place]) Comment on above: Result Comment: GFR Population [...] P HOS, CKMB, CKMBM, MG, TROPHS #### [address] [address] GFR Non- >60 Normal [facility] ([place]) Comment on above: Result Comment: GFR Population [...] P HOS, CKMB, CKMBM, MG, TROPHS #### [address] [address] .NEUABSon 12-07-2022 Neutrophil, Absolute 10.8 10 3/mcL High 2.3-8.1 [facility] ([place]) Comment on above: Performed By: #### P HOS, CKMB, CKMBM, MG, TROPHS #### [address] [address] BMPon 12-07-2022 BUN/Creatinine Ratio 22.4 ratio High 10.0-22.0 [facility] ([place]) Comment on above: Performed By: #### P HOS, CKMB, CKMBM, MG, TROPHS #### [address] [address] Calcium [Mass/Vol] 8.8 mg/dL Normal 8.7-10.4 [facility] ([place]) Comment on above: Performed By: #### P HOS, CKMB, CKMBM, MG, TROPHS #### [place] [id number] Chloride [Moles/Vol] 101 mmol/L Normal 98-110 [facility] ([place]) Comment on above: Performed By: #### P HOS, CKMB, CKMBM, MG, TROPHS #### [place] [phone] CO2 [Moles/Vol] 28 mmol/L Normal 22-32 [facility] ([place]) Comment on above: Performed By: #### P HOS, CKMB, CKMBM, MG, TROPHS #### [place] [phone] Creatinine [Mass/Vol] 0.76 mg/dL Normal 0.60-1.40 [facility] ([place] Comment on above: Performed By: #### P HOS, CKMB, CKMBM, MG, TROPHS #### [place] [id number] Electrolyte Balance 7.0 mEq/L Normal 4.0-15.0 [facility] ([place]) Comment on above: Performed By: #### P HOS, CKMB, CKMBM, MG, TROPHS #### [address] [address] Glucose [Mass/Vol] 212 mg/dL High 70-110 [facility] ([place]) Comment on above: Performed By: #### P HOS, CKMB, CKMBM, MG, TROPHS #### [place] [address] Potassium [Moles/Vol] 4.6 mmol/L Normal 3.5-5.0 [facility] ([place] Comment on above: Performed By: #### P HOS, CKMB, CKMBM, MG, TROPHS #### [place] [address] Sodium [Moles/Vol] 136 mmol/L Normal 136-145 [facility] ([place] Comment on above: Performed By: #### P HOS, CKMB, CKMBM, MG, TROPHS #### [place] [address] Urea nitrogen [Mass/Vol] 17.0 mg/dL Normal 8.0-22.0 [facility] ([place] Comment on above: Performed By: #### P HOS, CKMB, CKMBM, MG, TROPHS #### [place] [address] CBCon 12-07-2022 Erythrocyte distribution width (RBC) [Ratio] 13.7 % Normal 11.5-15.5 [facility] ([place]) Comment on above: Performed By: #### P HOS, CKMB, CKMBM, MG, TROPHS #### [place] [address] Hematocrit (Bld) [Volume fraction] 41.6 % Normal 40.0-52.0 [facility] ([place] Comment on above: Performed By: #### P HOS, CKMB, CKMBM, MG, TROPHS #### [place] [address] Hgb 14.0 G/dL Normal 13.0-17.5 [facility] ([place] Comment on above: Performed By: #### P HOS, CKMB, CKMBM, MG, TROPHS #### [place] [phone] MCH (RBC) [Entitic mass] 28.4 pg Normal 27.0-33.0 [facility] ([place] Comment on above: Performed By: #### P HOS, CKMB, CKMBM, MG, TROPHS #### [place] [address] MCHC 33.7 G/dL Normal 32.0-36.0 [facility] ([place] Comment on above: Performed By: #### P HOS, CKMB, CKMBM, MG, TROPHS #### [place] [address] MCV (RBC) [Entitic vol] 84.4 fL Normal 81.0-100.0 [facility] ([place] Comment on above: Performed By: #### P HOS, CKMB, CKMBM, MG, TROPHS #### [place] [address] Platelet 270 10 3/mcL Normal 150-450 [facility] ([place] Comment on above: Performed By: #### P HOS, CKMB, CKMBM, MG, TROPHS #### [place] [address] Platelet mean volume (Bld) [Entitic vol] 9.7 fL Normal 6.4-10.5 [facility] ([place] Comment on above: Performed By: #### P HOS, CKMB, CKMBM, MG, TROPHS #### [place] [address] RBC 4.92 10 6/mcL Normal 4.50-6.00 [facility] ([place] Comment on above: Performed By: #### P HOS, CKMB, CKMBM, MG, TROPHS #### [place] [address] WBC 12.9 10 3/mcL High 4.5-10.8 [facility] ([place]) Comment on above: Performed By: #### P HOS, CKMB, CKMBM, MG, TROPHS #### [place] [address] LABORATORYOrdered By: Tegan Miller on 12-07-2022 Glucose [Mass/Vol] 258 mg/dL Invalid Interpretation Code 70 - 110 mg/dL [facility] Work Phone: LABORATORYOrdered By: Juan David Wells on 12-07-2022 Blood Glucose Testing Reason Routine (12/07/22 4:49 PM) [facility] Work Phone: LABORATORYOrdered By: SYSTEM SYSTEM on [...] Invalid Interpretation Code 81.0 - 100.0 fL Workflow SS Monocytes (Bld) [#/Vol] 0.9 103/mcL [...] Code 4.5 - 10.8 10^3/mcL Workflow SS .Auto Diffon 12-06-2022 Basophil, Absolute 0.0 10 3/mcL Normal 0.0-0.3 [facility] ([place]) Comment on above: Performed By: #### G FR, CBC, ADIFF, ANEU, BMP #### [address] [address] Basophils/100 WBC (Bld) 0.2 % Normal 0.0-2.5 [facility] ([place] Comment on above: Performed By: #### G FR, CBC, ADIFF, ANEU, BMP #### [address] [address] Eosinophil, Absolute 0.2 10 3/mcL Normal 0.0-0.7 [facility] ([place] Comment on above: Performed By: #### G FR, CBC, ADIFF, ANEU, BMP #### [address] [address] Eosinophils/100 WBC (Bld) 1.1 % Normal 0.0-6.0 [facility] ([place] Comment on above: Performed By: #### G FR, CBC, ADIFF, ANEU, BMP #### [address] [address] Lymphocyte, Absolute 0.9 10 3/mcL Normal 0.9-4.3 [facility] ([place] Comment on above: Performed By: #### G FR, CBC, ADIFF, ANEU, BMP #### [address] [address] Lymphocytes/100 WBC (Bld) 6.1 % Low 20.0-40.0 [facility] ([place]) Comment on above: Performed By: #### G FR, CBC, ADIFF, ANEU, BMP #### [address] [address] Monocyte, Absolute 1.1 10 3/mcL Normal 0.1-1.4 [facility] ([place] Comment on above: Performed By: #### G FR, CBC, ADIFF, ANEU, BMP #### [address] [address] Monocytes/100 WBC (Bld) 7.0 % Normal 2.0-13.0 [facility] ([place] Comment on above: Performed By: #### G FR, CBC, ADIFF, ANEU, BMP #### [address] [address] Neutrophils/100 WBC (Bld) 85.6 % High 50.0-75.0 [facility] ([place] Comment on above: Performed By: #### G FR, CBC, ADIFF, ANEU, BMP #### [address] [address] .GFRon 12-06-2022 GFR Non- >60 Normal [facility] ([place] Comment on above: Result Comment: GFR Population [...] G FR, CBC, ADIFF, ANEU, BMP #### [address] [address] GFR >60 Normal [facility] ([place] Comment on above: Result Comment: GFR Population [...] G FR, CBC, ADIFF, ANEU, BMP #### [address] [address] .NEUABSon 12-06-2022 Neutrophil, Absolute 13.0 10 3/mcL High 2.3-8.1 [facility] ([place] Comment on above: Performed By: #### G FR, CBC, ADIFF, ANEU, BMP #### [address] [address] BMPon 12-06-2022 BUN/Creatinine Ratio 21.5 ratio Normal 10.0-22.0 [facility] ([place]) Comment on above: Performed By: #### G FR, CBC, ADIFF, ANEU, BMP #### [address] [address] Calcium [Mass/Vol] 8.7 mg/dL Normal 8.7-10.4 [facility] ([place]) Comment on above: Performed By: #### G FR, CBC, ADIFF, ANEU, BMP #### [address] [address] Chloride [Moles/Vol] 101 mmol/L Normal 98-110 [facility] ([place] Comment on above: Performed By: #### G FR, CBC, ADIFF, ANEU, BMP #### [address] [address] CO2 [Moles/Vol] 28 mmol/L Normal 22-32 [facility] ([place] Comment on above: Performed By: #### G FR, CBC, ADIFF, ANEU, BMP #### [address] [address] Creatinine [Mass/Vol] 0.93 mg/dL Normal 0.60-1.40 [facility] ([place] Comment on above: Performed By: #### G FR, CBC, ADIFF, ANEU, BMP #### [address] [address] Electrolyte Balance 6.0 mEq/L Normal 4.0-15.0 [facility] ([place]) Comment on above: Performed By: #### G FR, CBC, ADIFF, ANEU, BMP #### [address] [address] Glucose [Mass/Vol] 286 mg/dL High 70-110 [facility] ([place] Comment on above: Performed By: #### G FR, CBC, ADIFF, ANEU, BMP #### [address] [address] Potassium [Moles/Vol] 4.4 mmol/L Normal 3.5-5.0 [facility] ([place] Comment on above: Performed By: #### G FR, CBC, ADIFF, ANEU, BMP #### [place] [address] Sodium [Moles/Vol] 135 mmol/L Low 136-145 [facility] ([place] Comment on above: Performed By: #### G FR, CBC, ADIFF, ANEU, BMP #### [place] [address] Urea nitrogen [Mass/Vol] 20.0 mg/dL Normal 8.0-22.0 [facility] ([place] Comment on above: Performed By: #### G FR, CBC, ADIFF, ANEU, BMP #### [place] [address] CBCon 12-06-2022 Erythrocyte distribution width (RBC) [Ratio] 13.5 % Normal 11.5-15.5 [facility] ([place] Comment on above: Performed By: #### G FR, CBC, ADIFF, ANEU, BMP #### [place] [address] Hematocrit (Bld) [Volume fraction] 41.0 % Normal 40.0-52.0 [facility] ([place] Comment on above: Performed By: #### G FR, CBC, ADIFF, ANEU, BMP #### [place] [address] Hgb 13.9 G/dL Normal 13.0-17.5 [facility] ([place] Comment on above: Performed By: #### G FR, CBC, ADIFF, ANEU, BMP #### [place] [address] MCH (RBC) [Entitic mass] 28.9 pg Normal 27.0-33.0 [facility] ([place] Comment on above: Performed By: #### G FR, CBC, ADIFF, ANEU, BMP #### [place] [address] MCHC 33.9 G/dL Normal 32.0-36.0 [facility] ([place] Comment on above: Performed By: #### G FR, CBC, ADIFF, ANEU, BMP #### [place] [address] MCV (RBC) [Entitic vol] 85.0 fL Normal 81.0-100.0 [facility] ([place] Comment on above: Performed By: #### G FR, CBC, ADIFF, ANEU, BMP #### [address] [address] Platelet 239 10 3/mcL Normal 150-450 [facility] ([place] Comment on above: Performed By: #### G FR, CBC, ADIFF, ANEU, BMP #### [place] [address] Platelet mean volume (Bld) [Entitic vol] 9.5 fL Normal 6.4-10.5 [facility] ([place] Comment on above: Performed By: #### G FR, CBC, ADIFF, ANEU, BMP #### [place] [address] RBC 4.82 10 6/mcL Normal 4.50-6.00 [facility] ([place] Comment on above: Performed By: #### G FR, CBC, ADIFF, ANEU, BMP #### [place] [address] WBC 15.2 10 3/mcL High 4.5-10.8 [facility] ([place] Comment on above: Performed By: #### G FR, CBC, ADIFF, ANEU, BMP #### [place] [address] LABORATORYOrdered By: Rema Wen on 12-06-2022 LDose Vancomycin:(trough) See eMAR (12/06/22 11:10 AM) Invalid Interpretation Code Chemistry S LABORATORYOrdered By: SYSTEM SYSTEM on 12-06-2022 Vancomycin trough [Mass/Vol] 9.7 ug/mL Invalid Interpretation Code 5.0 - 20.0 mcg/mL AH ADM SS Basophils (Bld) [#/Vol] 0.0 103/mcL Invalid Interpretation Code 0.0 - 0.3 10^3/mcL AH Workflow SS Basophils/100 WBC (Bld) 0.2 % Invalid Interpretation Code 0.0 - 2.5 % AH Workflow SS Calcium [Mass/Vol] 8.7 mg/dL Invalid Interpretation Code 8.7 - 10.4 mg/dL ADM SS Chloride [Moles/Vol] 101 mmol/L Invalid Interpretation Code 98 - 110 mEq/L ADM SS CO2 [Moles/Vol] 28 mmol/L Invalid Interpretation Code 22 - 32 mEq/L ADM SS Creatinine [Mass/Vol] 0.93 mg/dL Invalid [...] (S/P/Bld) [Vol rate/Area] ml/min/1.73sqm Invalid Interpretation Code [employer] Chemistry S Comment on above: Interpretive Data: [...] (S/P/Bld) [Vol rate/Area] ml/min/1.73sqm Invalid Interpretation Code [employer] Chemistry S Comment on above: Interpretive Data: [...] Invalid Interpretation Code 0.9 - 4.3 10^3/mcL AH Workflow SS Lymphocytes/100 WBC (Bld) 6.1 % Invalid Interpretation Code 20.0 - 40.0 % AH Workflow SS MCH (RBC) [Entitic mass] 28.9 [...] 10^3/mcL AH Workflow SS Monocytes/100 WBC (Bld) 7.0 % Invalid Interpretation Code 2.0 - 13.0 % AH Workflow SS Neutrophils (Bld) [#/Vol] 13.0 103/mcL Invalid Interpretation Code 2.3 - 8.1 10^3/mcL AH Workflow SS Neutrophils/100 WBC (Bld) 85.6 % Invalid Interpretation Code 50.0 - 75.0 % AH Workflow SS Platelet mean volume (Bld) [Entitic vol] 9.5 fL Invalid Interpretation Code 6.4 - 10.5 fL AH Workflow SS Platelets (Bld) [#/Vol] 239 103/mcL Invalid Interpretation Code 150 - 450 10^3/mcL AH Workflow SS Potassium [Moles/Vol] 4.4 mmol/L Invalid [...] 4.5 - 10.8 10^3/mcL AH Workflow SS [facility] 12-06-2022 LDose Vancomycin:(trough) See eMAR Normal [facility] [place] Comment on above: Performed By: #### P HOS, CKMB, CKMBM, MG, TROPHS #### [place] [address] Vancomycin Tr 9.7 mcg/mL Normal 5.0-20.0 [facility] ([place] Comment on above: Performed By: #### P HOS, CKMB, CKMBM, MG, TROPHS #### [place] [address] .Auto Diffon 12-05-2022 Basophil, Absolute 0.0 10 3/mcL Normal 0.0-0.3 [facility] ([place] Comment on above: Performed By: #### P HOS, CKMB, CKMBM, MG, TROPHS #### [address] [address] Basophils/100 WBC (Bld) 0.2 % Normal 0.0-2.5 [facility] ([place] Comment on above: Performed By: #### P HOS, CKMB, CKMBM, MG, TROPHS #### [place] [address] Eosinophil, Absolute 0.1 10 3/mcL Normal 0.0-0.7 [facility] ([place] Comment on above: Performed By: #### P HOS, CKMB, CKMBM, MG, TROPHS #### [address] [address] Eosinophils/100 WBC (Bld) 0.8 % Normal 0.0-6.0 [facility] ([place] Comment on above: Performed By: #### P HOS, CKMB, CKMBM, MG, TROPHS #### [address] [address] Lymphocyte, Absolute 1.0 10 3/mcL Normal 0.9-4.3 [facility] ([place] Comment on above: Performed By: #### P HOS, CKMB, CKMBM, MG, TROPHS #### [address] [address] Lymphocytes/100 WBC (Bld) 5.8 % Low 20.0-40.0 [facility] ([place] Comment on above: Performed By: #### P HOS, CKMB, CKMBM, MG, TROPHS #### [address] [address] Monocyte, Absolute 1.1 10 3/mcL Normal 0.1-1.4 [facility] ([place] Comment on above: Performed By: #### P HOS, CKMB, CKMBM, MG, TROPHS #### [address] [address] Monocytes/100 WBC (Bld) 6.2 % Normal 2.0-13.0 [facility] ([place] Comment on above: Performed By: #### P HOS, CKMB, CKMBM, MG, TROPHS #### [address] [address] Neutrophils/100 WBC (Bld) 87.0 % High 50.0-75.0 [facility] ([place] Comment on above: Performed By: #### P HOS, CKMB, CKMBM, MG, TROPHS #### [address] [address] .GFRon 12-05-2022 GFR Non- >60 Normal [facility] ([place] Comment on above: Result Comment: GFR Population [...] P HOS, CKMB, CKMBM, MG, TROPHS #### [address] [address] GFR >60 Normal [facility] ([place] Comment on above: Result Comment: GFR Population [...] P HOS, CKMB, CKMBM, MG, TROPHS #### [address] [address] .NEUABSon 12-05-2022 Neutrophil, Absolute 14.9 10 3/mcL High 2.3-8.1 [facility] ([place] Comment on above: Performed By: #### P HOS, CKMB, CKMBM, MG, TROPHS #### [address] [address] CBCon 12-05-2022 Erythrocyte distribution width (RBC) [Ratio] 13.8 % Normal 11.5-15.5 [facility] ([place] Comment on above: Performed By: #### P HOS, CKMB, CKMBM, MG, TROPHS #### [place] [address] Hematocrit (Bld) [Volume fraction] 44.8 % Normal 40.0-52.0 [facility] ([place] Comment on above: Performed By: #### P HOS, CKMB, CKMBM, MG, TROPHS #### [place] [id number] Hgb 15.0 G/dL Normal 13.0-17.5 [facility] ([place] Comment on above: Performed By: #### P HOS, CKMB, CKMBM, MG, TROPHS #### [place] [address] MCH (RBC) [Entitic mass] 28.5 pg Normal 27.0-33.0 [facility] ([place] Comment on above: Performed By: #### P HOS, CKMB, CKMBM, MG, TROPHS #### [place] [address] MCHC 33.4 G/dL Normal 32.0-36.0 [facility] ([place] Comment on above: Performed By: #### P HOS, CKMB, CKMBM, MG, TROPHS #### [place] [address] MCV (RBC) [Entitic vol] 85.3 fL Normal 81.0-100.0 [facility] ([place] Comment on above: Performed By: #### P HOS, CKMB, CKMBM, MG, TROPHS #### [place] [address] Platelet 266 10 3/mcL Normal 150-450 [facility] ([place] Comment on above: Performed By: #### P HOS, CKMB, CKMBM, MG, TROPHS #### [place] [address] Platelet mean volume (Bld) [Entitic vol] 9.6 fL Normal 6.4-10.5 [facility] ([place] Comment on above: Performed By: #### P HOS, CKMB, CKMBM, MG, TROPHS #### [address] [address] RBC 5.25 10 6/mcL Normal 4.50-6.00 [facility] ([place] Comment on above: Performed By: #### P HOS, CKMB, CKMBM, MG, TROPHS #### [address] [address] WBC 17.1 10 3/mcL High 4.5-10.8 [facility] ([place] Comment on above: Performed By: #### P HOS, CKMB, CKMBM, MG, TROPHS #### [address] [address] CMPon 12-05-2022 Albumin Level 3.2 G/dL Normal 3.2-4.8 [facility] ([place] Comment on above: Performed By: #### P HOS, CKMB, CKMBM, MG, TROPHS #### [place] [address] Albumin/Globulin [Mass ratio] 1.0 {ratio} Normal 0.9-1.6 [facility] ([place]) Comment on above: Performed By: #### P HOS, CKMB, CKMBM, MG, TROPHS #### [address] [address] ALP [Catalytic activity/Vol] 137 U/L High 38-126 [facility] ([place] Comment on above: Performed By: #### P HOS, CKMB, CKMBM, MG, TROPHS #### [address] [address] ALT [Catalytic activity/Vol] 25 U/L Normal 12-55 [facility] ([place] Comment on above: Performed By: #### P HOS, CKMB, CKMBM, MG, TROPHS #### [address] [address] AST [Catalytic activity/Vol] 17 U/L Normal 8-34 [facility] ([place] Comment on above: Performed By: #### P HOS, CKMB, CKMBM, MG, TROPHS #### [address] [address] Bili Total 2.60 mg/dL High 0.20-1.20 [facility] ([place]) Comment on above: Result Comment: Use of this assay is not recommended for patients undergoing treatment with eltrombopag due to the potential for falsely elevated results. Performed By: #### P HOS, CKMB, CKMBM, MG, TROPHS #### [place] [address] BUN/Creatinine Ratio 23.9 ratio High 10.0-22.0 [facility] ([place]) Comment on above: Performed By: #### P HOS, CKMB, CKMBM, MG, TROPHS #### [place] [address] Calcium [Mass/Vol] 9.2 mg/dL Normal 8.7-10.4 [facility] ([place]) Comment on above: Performed By: #### P HOS, CKMB, CKMBM, MG, TROPHS #### [place] [address] Chloride [Moles/Vol] 101 mmol/L Normal 98-110 [facility] ([place] Comment on above: Performed By: #### P HOS, CKMB, CKMBM, MG, TROPHS #### [place] [address] CO2 [Moles/Vol] 26 mmol/L Normal 22-32 [facility] ([place] Comment on above: Performed By: #### P HOS, CKMB, CKMBM, MG, TROPHS #### [place] [id number] Creatinine [Mass/Vol] 0.71 mg/dL Normal 0.60-1.40 [facility] ([place] Comment on above: Performed By: #### P HOS, CKMB, CKMBM, MG, TROPHS #### [place] [id number] Electrolyte Balance 10.0 mEq/L Normal 4.0-15.0 [facility] ([place]) Comment on above: Performed By: #### P HOS, CKMB, CKMBM, MG, TROPHS #### [address] [address] Globulin 3.1 G/dL Normal 1.5-3.8 [facility] ([place] Comment on above: Performed By: #### P HOS, CKMB, CKMBM, MG, TROPHS #### [address] [address] Glucose [Mass/Vol] 216 mg/dL High 70-110 [facility] ([place] Comment on above: Performed By: #### P HOS, CKMB, CKMBM, MG, TROPHS #### [address] [address] Potassium [Moles/Vol] 4.3 mmol/L Normal 3.5-5.0 [facility] ([place] Comment on above: Performed By: #### P HOS, CKMB, CKMBM, MG, TROPHS #### [address] [address] Sodium [Moles/Vol] 137 mmol/L Normal 136-145 [facility] ([place] Comment on above: Performed By: #### P HOS, CKMB, CKMBM, MG, TROPHS #### [address] [address] Total Protein 6.3 G/dL Normal 5.7-8.2 [facility] ([place] Comment on above: Result Comment: No te - New Reference Range in effect 19 Performed By: #### P HOS, CKMB, CKMBM, MG, TROPHS #### [address] [address] Urea nitrogen [Mass/Vol] 17.0 mg/dL Normal 8.0-22.0 [facility] ([place] Comment on above: Performed By: #### P HOS, CKMB, CKMBM, MG, TROPHS #### [address] [address] LABORATORYOrdered By: SYSTEM SYSTEM on 12-05-2022 Albumin [...] Basophil, Absolute 0.1 10 3/mcL Normal 0.0-0.2 [facility] ([place] Comment on above: Performed By: #### P HOS, CKMB, CKMBM, MG, TROPHS #### [address] [address] Basophils/100 WBC (Bld) 0.6 % Normal 0.0-2.5 [facility] ([place]) Comment on above: Performed By: #### P HOS, CKMB, CKMBM, MG, TROPHS #### [address] [address] Eosinophil, Absolute 0.1 10 3/mcL Normal 0.0-0.4 [facility] ([place] Comment on above: Performed By: #### P HOS, CKMB, CKMBM, MG, TROPHS #### [address] [address] Eosinophils/100 WBC (Bld) 0.9 % Normal 0.0-7.0 [facility] ([place] Comment on above: Performed By: #### P HOS, CKMB, CKMBM, MG, TROPHS #### [address] [address] Lymphocyte, Absolute 1.0 10 3/mcL Normal 0.8-3.9 [facility] ([place] Comment on above: Performed By: #### P HOS, CKMB, CKMBM, MG, TROPHS #### [address] [address] Lymphocytes/100 WBC (Bld) 5.8 % Low 10.0-50.0 [facility] ([place]) Comment on above: Performed By: #### P HOS, CKMB, CKMBM, MG, TROPHS #### [address] [address] Monocyte, Absolute 0.9 10 3/mcL Normal 0.2-1.0 [facility] ([place] Comment on above: Performed By: #### P HOS, CKMB, CKMBM, MG, TROPHS #### [address] [address] Monocytes/100 WBC (Bld) 5.2 % Normal 1.7-13.0 [facility] ([place] Comment on above: Performed By: #### P HOS, CKMB, CKMBM, MG, TROPHS #### [address] [address] Neutrophils/100 WBC (Bld) 87.5 % High 37.0-80.0 [facility] ([place] Comment on above: Performed By: #### P HOS, CKMB, CKMBM, MG, TROPHS #### [address] [address] .GFRon 12-04-2022 GFR 101 ml/min/1.73sqm Normal [facility] ([place] Comment on above: Result Comment: GFR Population [...] P HOS, CKMB, CKMBM, MG, TROPHS #### [address] [address] GFR Non- 83 ml/min/1.73sqm Normal [facility] ([place] Comment on above: Result Comment: GFR Population [...] P HOS, CKMB, CKMBM, MG, TROPHS #### [address] [address] .MDWon 12-04-2022 Monocyte Distribution Width 21.11 High 0.00-20.00 [facility] ([place] Comment on above: Result Comment: For adults in ED, MDW>20.0 may be associated with a higher risk of sepsis during the first 12hrs of hospital admission Performed By: #### P HOS, CKMB, CKMBM, MG, TROPHS #### [address] [address] .NEUABSon 12-04-2022 Neutrophil, Absolute 15.0 10 3/mcL High 2.9-6.2 [facility] ([place] Comment on above: Performed By: #### P HOS, CKMB, CKMBM, MG, TROPHS #### [address] [address] BMPon 12-04-2022 BUN/Creatinine Ratio 14 ratio Normal 7-27 [facility] ([place] Comment on above: Performed By: #### P HOS, CKMB, CKMBM, MG, TROPHS #### [address] [address] Calcium [Mass/Vol] 9.2 mg/dL Normal 8.4-10.2 [facility] ([place]) Comment on above: Performed By: #### P HOS, CKMB, CKMBM, MG, TROPHS #### [address] [address] Chloride [Moles/Vol] 99 mmol/L Normal 98-107 [facility] ([place] Comment on above: Performed By: #### P HOS, CKMB, CKMBM, MG, TROPHS #### [address] [address] CO2 [Moles/Vol] 29 mmol/L Normal 22-29 [facility] ([place] Comment on above: Performed By: #### P HOS, CKMB, CKMBM, MG, TROPHS #### [address] [address] Creatinine [Mass/Vol] 0.95 mg/dL Normal 0.70-1.30 [facility] ([place] Comment on above: Performed By: #### P HOS, CKMB, CKMBM, MG, TROPHS #### [address] [address] Electrolyte Balance 9.0 mEq/L Normal 4.0-15.0 [facility] ([place]) Comment on above: Performed By: #### P HOS, CKMB, CKMBM, MG, TROPHS #### [address] [address] Glucose [Mass/Vol] 321 mg/dL High 70-105 [facility] ([place] Comment on above: Performed By: #### P HOS, CKMB, CKMBM, MG, TROPHS #### [place] [address] Potassium [Moles/Vol] 4.5 mmol/L Normal 3.5-5.1 [facility] ([place] Comment on above: Performed By: #### P HOS, CKMB, CKMBM, MG, TROPHS #### [place] [address] Sodium [Moles/Vol] 137 mmol/L Normal 136-145 [facility] ([place] Comment on above: Performed By: #### P HOS, CKMB, CKMBM, MG, TROPHS #### [place] [address] Urea nitrogen [Mass/Vol] 13 mg/dL Normal 7-18 [facility] ([place] Comment on above: Performed By: #### P HOS, CKMB, CKMBM, MG, TROPHS #### [place] [address] CBCon 12-04-2022 Erythrocyte distribution width (RBC) [Ratio] 14.1 % Normal 11.5-14.5 [facility] ([place] Comment on above: Performed By: #### P HOS, CKMB, CKMBM, MG, TROPHS #### [place] [address] Hematocrit (Bld) [Volume fraction] 46.5 % Normal 42.0-52.0 [facility] ([place] Comment on above: Performed By: #### P HOS, CKMB, CKMBM, MG, TROPHS #### [place] [address] Hgb 15.9 G/dL Normal 14.0-18.0 [facility] ([place] Comment on above: Performed By: #### P HOS, CKMB, CKMBM, MG, TROPHS #### [place] [address] MCH (RBC) [Entitic mass] 28.7 pg Normal 27.0-31.2 [facility] ([place] Comment on above: Performed By: #### P HOS, CKMB, CKMBM, MG, TROPHS #### [place] [address] MCHC 34.2 G/dL Normal 31.8-35.4 [facility] ([place] Comment on above: Performed By: #### P HOS, CKMB, CKMBM, MG, TROPHS #### [place] [address] MCV (RBC) [Entitic vol] 83.9 fL Normal 80.0-94.0 [facility] ([place] Comment on above: Performed By: #### P HOS, CKMB, CKMBM, MG, TROPHS #### [place] [address] Platelet 255 10 3/mcL Normal 130-400 [facility] ([place] Comment on above: Performed By: #### P HOS, CKMB, CKMBM, MG, TROPHS #### [place] [address] Platelet mean volume (Bld) [Entitic vol] 9.1 fL Normal 7.4-10.4 [facility] ([place] Comment on above: Performed By: #### P HOS, CKMB, CKMBM, MG, TROPHS #### [place] [address] RBC 5.54 10 6/mcL Normal 4.04-6.13 [facility] ([place] Comment on above: Performed By: #### P HOS, CKMB, CKMBM, MG, TROPHS #### [place] [address] WBC 17.2 10 3/mcL High 4.6-10.8 [facility] ([place] Comment on above: Performed By: #### P HOS, CKMB, CKMBM, MG, TROPHS #### [place] [address] CK-Shanell 12-04-2022 Relative Index Not Valid Normal 0.0-4.5 [facility] ([place]) Comment on above: Result Comment: CPK <185 invalidates relative index Performed By: #### P HOS, CKMB, CKMBM, MG, TROPHS #### [facility] [address] [place] [address] CK [Catalytic activity/Vol] 61 U/L Normal 7-185 [facility] ([place]) Comment on above: Result Comment: Spec imen slightly hemolyzed. Performed By: #### P HOS, CKMB, CKMBM, MG, TROPHS #### [facility] [address] [place] [address] CKMBMon 12-04-2022 CK.MB [Mass/Vol] Not performed Normal 0.00-5.00 [facility] ([place]) Comment on above: Result Comment: CKMB result not performed when CPK < 75 Note - New Reference Range in effect 19 Performed By: #### P HOS, CKMB, CKMBM, MG, TROPHS #### [facility] [address] [place] [address] SOFT TISSUE NECK W/ CONTR Cash [...] Date: 12/04/2022 12:12:41 PM [facility]ing [facility] LABORATORYOrdered By: SYSTEM SYSTEM on 12-04-2022 Troponin I.cardiac DL <= 0.01 ng/mL [Mass/Vol] 4.33 ng/L Invalid Interpretation Code 0.00 - 54.00 ng/L [facility] Comment on above: Interpretive Data: I f the High Sensitive Troponin result is below the 99th percentile value (<45 ng/L) at the first blood draw, at least two additional blood samples should be drawn before results are interpreted as negative for AMI. CK [Catalytic activity/Vol] 61 U/L Invalid Interpretation Code 7 - 185 U/L [facility] Comment on above: Result Comment: Spec imen slightly hemolyzed. Magnesium [Mass/Vol] 1.7 mg/dL Invalid Interpretation Code 1.6 - 2.4 mg/dL [facility] Phosphate [Mass/Vol] 3.6 mg/dL Invalid Interpretation Code 2.4 - 5.1 mg/dL [facility] Comment on above: Interpretive Data: * *Note - New Reference Range in effect 19 Troponin I.cardiac DL <= 0.01 ng/mL [Mass/Vol] ng/L Invalid Interpretation Code 0.00 - 54.00 ng/L [facility] Comment on above: Interpretive Data: I [...] 12-04-2022 Magnesium [Mass/Vol] 1.7 mg/dL Normal 1.6-2.4 [facility] ([place]) Comment on above: Performed By: #### P HOS, CKMB, CKMBM, MG, TROPHS #### [place] [address] No Panel Informationon 12-04 Microscopic examination of blood, culture Culture has been received in lab and is no growth to date. Routine cultures are held for 5 days. [facility] Work Phone: PHOSon 12-04-2022 Phosphate [Mass/Vol] 3.6 mg/dL Normal 2.4-5.1 [facility] ([place]) Comment on above: Result Comment: No te - New Reference Range in effect 19 Performed By: #### P HOS, CKMB, CKMBM, MG, TROPHS #### [address] 12-04-2022 Troponin I High Sensitivity 4.33 ng/L Normal 0.00-54.00 [facility] ([place]) Comment on above: Result Comment: If t he High Sensitive Troponin result is below the 99th percentile value (<45 ng/L) at the first blood draw, at least two additional blood samples should be drawn before results are interpreted as negative for AMI. Performed By: #### P HOS, CKMB, CKMBM, MG, TROPHS #### [place] [address] Troponin I High Sensitivity <2.50 Normal 0.00-54.00 [facility] ([place] Comment on above: Result Comment: If t he High Sensitive Troponin result is below the 99th percentile value (<45 ng/L) at the first blood draw, at least two additional blood samples should be drawn before results are interpreted as negative for AMI. Performed By: #### P HOS, CKMB, CKMBM, MG, TROPHS #### [place] [address] Absolute lymphocyte countOrd ered By: Dr. Bella on 07-30-2022 Lymphocytes Auto (Unsp spec) [#/Vol] 1.32 10*3/uL 0.83-4.51 [facility] Basophil percentageOrdered B y: Dr. Bella on 07-30-2022 Basophil percentage 0 SEEN /hpf 0-5 [facility] Basophils/100 WBC (Bld) 0.7 % 0-1 [facility] Chloride [Moles/Vol] 105 mmol/L 98-107 [facility] Eosinophils/100 WBC (Bld) 1.7 % 0-5 [facility] Glucose [Mass/Vol] 192 mg/dL 74-106 [facility] Comment on above: Fasting Glucose resu lt greater than or equal to 126 mg/dL suggests DIABETES MELLITUS per A.D.A. criteria. Neutrophils (Bld) [#/Vol] 5.0 10*3/uL 2.0-7.7 [facility] Neutrophils/100 WBC (Bld) 72.2 % 47-70 [facility] Potassium [Moles/Vol] 4.1 mmol/L 3.5-5.1 [facility] Sodium [Moles/Vol] 140 mmol/L 136-145 [facility] WBC (Bld) [#/Vol] 6.9 10*3/uL 4.4-11.0 [facility] Bilirubin Test strip Ql (U)O rdered By: Dr. Bella on 07-30-2022 Bilirubin Ql (U) Negative Negative [facility] Blood erythrocytes count (nu mber/volume)Ordered By: Dr. Bella on 07-30-2022 RBC (Bld) [#/Vol] 4.81 10*6/uL 4.6-6.2 [facility] Blood hemoglobin measurement (mass/volume)Ordered By: Dr. Bella on 07-30-2022 Hemoglobin (Bld) [Mass/Vol] 13.6 g/dL 13.0-16.5 [facility] [place] Blood lymphocytes/100 leukoc ytesOrdered By: Dr. Bella on 07-30-2022 Lymphocytes/100 WBC (Bld) 19.0 % 19-41 [facility] [place] Blood monocytes/100 leukocyt esOrdered By: Dr. Bella on 07-30-2022 Monocytes/100 WBC (Bld) 6.1 % 0-10 [facility] Blood platelet mean volumeOr dered By: Dr. Bella on 07-30-2022 Platelet mean volume (Bld) [Entitic vol] 10.5 fL 6.2-12.0 [facility] Determination of erythrocyte mean corpuscular volume (MCV)Ordered By: Dr. Bella on 07-30-2022 MCV (RBC) [Entitic vol] 89.0 fL 80-94 [facility] Glucose Glucometer (BldC) [M ass/Vol]Ordered By: Dr. Bella on 07-30-2022 Glucose [Mass/Vol] 168 mg/dL 74-106 [facility] Comment on above: MANAGEMENT OF PATIEN T CARE PER NURSING PROTOCOL Hematocrit Auto (Bld) [Volum e fraction]Ordered By: Dr. Bella on 07-30-2022 Hematocrit (Bld) [Volume fraction] 42.8 % 40-54 [facility] Ketones Test strip Ql (U)Ord ered By: Dr. Bella on 07-30-2022 Ketones Ql (U) Negative Negative [facility] [place] Laboratory - Chemistry and C hemistry - challengeOrdered By: Dr. Bella on 07-30-2022 CO2 [Moles/Vol] 29.0 mmol/L 21.0-32.0 [facility] [place] Urea nitrogen/Creatinine [Mass ratio] 14.1 mg/mg 10-20 [facility] Laboratory - Hematology and Cell countsOrdered By: Dr. Bella on 07-30-2022 Erythrocyte distribution width (RBC) [Entitic vol] 42.9 fL 35.1-43.9 [facility] Erythrocyte distribution width (RBC) [Ratio] 13.2 % 11.6-14.6 [facility] Immature granulocytes/100 WBC (Bld) 0.300 % 0.0-0.9 [facility] Comment on above: IG% - Immature Granu locytes (promyelocytes, myelocytes and metamyelocytes) > 1% indicates that a LEFT SHIFT is Present. MCH (RBC) [Entitic mass] 28.3 pg 27.0-32.0 [facility] [place] Nucleated RBC/100 WBC (Bld) [Ratio] 0 % 0-5 [facility] [place] MCHC Auto (RBC) [Mass/Vol]Or dered By: Dr. Bella on 07-30-2022 MCHC (RBC) [Mass/Vol] 31.8 g/dL 32-36 [facility] Mucus LM Ql (Urine sed)Order ed By: Dr. Bella on 07-30-2022 Mucus Ql (Urine sed) 0 SEEN /hpf [facility] Nitrite Test strip Ql (U)Ord ered By: Dr. Bella on 07-30-2022 Nitrite Ql (U) Negative Negative [facility] [place] No Panel InformationOrdered By: Dr. Bella on 07-30-2022 Estimated Creatinine Clearance Calc 91.74 ml/min [facility] [place] Estimated GFR (MDRD) Amer 121 mL/min >60 [facility] Comment on above: GFR Calc Estimated GFR (MDRD) Non-Af Amer 100 mL/min >60 [facility] Comment on above: Non- GFR Calc Platelets bldOrdered By: Dr. Bella on 07-30-2022 Platelets (Bld) [#/Vol] 253 10*3/uL 150-450 [facility] Protein Test strip Ql (U)Ord ered By: Dr. Bella on 07-30-2022 Protein Ql (U) Negative Negative [facility] Serum or plasma calcium david urement (mass/volume)Ordered By: Dr. Bella on 07-30-2022 Calcium [Mass/Vol] 8.8 mg/dL 8.5-10.1 [facility] Serum or plasma creatinine m easurement (mass/volume)Ordered By: Dr. Bella on 07-30-2022 Creatinine [Mass/Vol] 0.85 mg/dL 0.70-1.30 [facility] Comment on above: The validity of the calculated GFR & GFRAA in patients over 70 years has not been determined. Clinical correlation is essential. Serum or plasma urea nitroge n measurement (mass/volume)Ordered By: Dr. Bella on 07-30-2022 Urea nitrogen [Mass/Vol] 12 mg/dL 7-18 [facility] Squamous epithelial cells de tection in urine sediment by light microscopyOrdered By: Dr. Bella on 07-30-2022 Epithelial cells.squamous LM Ql (Urine sed) 0 SEEN /hpf 0-5 [facility] [place] Thin prep Papanicolaou smear with manual screeningOrdered By: Dr. Bella on 07-30-2022 Thin prep Papanicolaou smear with manual screening 6 5-15 [facility] [place] Urine blood detectionOrdered By: Dr. Bella on 07-30-2022 RBC Ql (U) Negative Negative [facility] [place] RBC Ql (U) 0 SEEN /hpf 0-5 [facility] [place] Urine clarityOrdered By: Dr. Bella on 07-30-2022 Clarity (U) Clear Clear [facility] [place] Urine color determinationOrd ered By: Dr. Bella on 07-30-2022 Color (U) Yellow Yellow [facility] Urine glucose detectionOrder ed By: Dr. Bella on 07-30-2022 Glucose Ql (U) 250 mg/dl Normal [facility] [place] Urine leukocyte esterase det ection by dipstickOrdered By: Dr. Bella on 07-30-2022 Leukocyte esterase Test strip Ql (U) Negative Negative [facility] [place] Urine pHOrdered By: Dr. Bella o n 07-30-2022 pH (U) 6.0 [pH] 5.0 - 8.0 [facility] Urine sediment bacteria coun t by microscopy (number/high power field)Ordered By: Dr. Bella on 07-30-2022 Bacteria LM.HPF (Urine sed) [#/Area] 0 /[HPF] None Seen [facility] Urine specific gravity measu rementOrdered By: Dr. Bella on 07-30-2022 Specific gravity (U) [Rel density] 1.015 1.002-1.030 [facility] [place] Urobilinogen Auto test strip Ql (U)Ordered By: Dr. Bella on 07-30-2022 Urobilinogen Ql (U) Normal mg/dl Normal [facility] Basophil percentageOrdered B y: David Shahpkins on 07-16-2022 Bilirubin [Mass/Vol] 1.90 mg/dL 0.20-1.00 [facility] Comment on above: For patients on eltr ombopag therapy, use of Dimension [place] TBIL is not recommended. Chloride [Moles/Vol] 104 mmol/L 98-107 [facility] Cholesterol [Mass/Vol] 181 mg/dL <200 [facility] Comment on above: <200 mg/dL Desirable 200-240 mg/dL Borderline >240 mg/dL High Risk Glucose [Mass/Vol] 199 mg/dL 74-106 [facility] Comment on above: Fasting Glucose resu lt greater than or equal to 126 mg/dL suggests DIABETES MELLITUS per A.D.A. criteria. Potassium [Moles/Vol] 3.9 mmol/L 3.5-5.1 [facility] Protein [Mass/Vol] 6.8 g/dL 6.4-8.2 [facility] Sodium [Moles/Vol] 138 mmol/L 136-145 [facility] Triglyceride [Mass/Vol] 93 mg/dL <199 [facility] Comment on above: The drugs N-Acetylcy steine and Metamizole may falsely depress this assay.Serum Triglycerides Reference Interval Normal <150 mg/dL Borderline high 150 - 199 mg/dL High 200 - 499 mg/dL Very High > or = 500 mg/dL WBC (Bld) [#/Vol] 7.2 10*3/uL 4.4-11.0 [facility] Blood erythrocytes count (nu mber/volume)Ordered By: David Cummins on 07-16-2022 RBC (Bld) [#/Vol] 5.07 10*6/uL 4.6-6.2 [facility] Blood hemoglobin measurement (mass/volume)Ordered By: David Cummins on 07-16-2022 Hemoglobin (Bld) [Mass/Vol] 14.2 g/dL 13.0-16.5 [facility] [place] Blood platelet mean volumeOr dered By: David Cummins on 07-16-2022 Platelet mean volume (Bld) [Entitic vol] 11.4 fL 6.2-12.0 [facility] [place] Determination of erythrocyte mean corpuscular volume (MCV)Ordered By: David Cummins on 07-16-2022 MCV (RBC) [Entitic vol] 87.4 fL 80-94 [facility] Hematocrit Auto (Bld) [Volum e fraction]Ordered By: David Cummins on 07-16-2022 Hematocrit (Bld) [Volume fraction] 44.3 % 40-54 [facility] Iron measurement (mass/mass) Ordered By: David Cummins on 07-16-2022 Iron (Unsp spec) [Mass/Mass] 101 ug/dL 65-175 [facility] Laboratory - Chemistry and C hemistry - challengeOrdered By: David Cummins on 07-16-2022 ALP [Catalytic activity/Vol] 98 U/L 45-117 [facility] ALT [Catalytic activity/Vol] 31 U/L 16-61 [facility] CO2 [Moles/Vol] 29.0 mmol/L 21.0-32.0 [facility] Globulin (S) [Mass/Vol] 3.2 g/dL 2.2-4.2 [facility] Urea nitrogen/Creatinine [Mass ratio] 21.5 mg/mg 10-20 [facility] [place] Laboratory - Hematology and Cell countsOrdered By: David Cummins on 07-16-2022 Erythrocyte distribution width (RBC) [Entitic vol] 42.5 fL 35.1-43.9 [facility] Erythrocyte distribution width (RBC) [Ratio] 13.3 % 11.6-14.6 [facility] MCH (RBC) [Entitic mass] 28.0 pg 27.0-32.0 [facility] MCHC Auto (RBC) [Mass/Vol]Or dered By: David Cummins on 07-16-2022 MCHC (RBC) [Mass/Vol] 32.1 g/dL 32-36 [facility] No Panel InformationOrdered By: David Cummins on 07-16-2022 Estimated GFR (MDRD) Amer 123 mL/min >60 [facility] Comment on above: GFR Calc Estimated GFR (MDRD) Non-Af Amer 102 mL/min >60 [facility] Comment on above: Non- GFR Calc Prostate Specific Antigen Screen 0.78 ng/mL 0.00-4.00 [facility] Comment on above: This test was perfor med using the TPSA assay method for the[employer] chemistry system. Values obtained with differentassay methods cannot be used interchangably.When changing PSA assays in the course of monitoring apatient, additional sequential testing should be carriedout to confirm baseline values. Total Iron Binding Capacity 269 ug/dL 250-450 [facility] [place] Vitamin D 25-Hydroxy 65.5 ng/mL [facility] Comment on above: Vitamin D 25(OH) Sta tus Range Deficiency <20 ng/mL (50nmol/L) Insufficiency 20 - 30 ng/mL (50 - 75 nmol/L) Sufficiency 30 - 100 ng/mL (75 - 250 nmol/L) Toxicity >100 ng/mL (>250 nmol/L) Platelets bldOrdered By: Sixto Cummins on 07-16-2022 Platelets (Bld) [#/Vol] 308 10*3/uL 150-450 [facility] [place] Serum or plasma albumin david urement (mass/volume)Ordered By: David Cummins on 07-16-2022 Albumin [Mass/Vol] 3.6 g/dL 3.2-5.0 [facility] Serum or plasma albumin/glob ulin mass ratioOrdered By: David Cummins on 07-16-2022 Albumin/Globulin [Mass ratio] 1.1 {ratio} 0.9-2.4 [facility] [place] Serum or plasma calcium david urement (mass/volume)Ordered By: David Cummins on 07-16-2022 Calcium [Mass/Vol] 8.7 mg/dL 8.5-10.1 [facility] Serum or plasma cholesterol in HDL measurement (mass/volume)Ordered By: David Cummins on 07-16-2022 Cholesterol in HDL [Mass/Vol] 41 mg/dL >40 [facility] [place] Comment on above: The drugs N-Acetylcy steine and Metamizole may falsely depress this assay. Reference Range HDL <40 mg/dL Low HDL Cholesterol HDL >or= 60 mg/dL High HDL Cholesterol Serum or plasma cholesterol in VLDL measurement (mass/volume)Ordered By: David Cummins on 07-16-2022 Cholesterol in VLDL [Mass/Vol] 19 mg/dL 5-40 [facility] [place] Serum or plasma creatinine m easurement (mass/volume)Ordered By: David Cummins on 07-16-2022 Creatinine [Mass/Vol] 0.84 mg/dL 0.70-1.30 [facility] Comment on above: The validity of the calculated GFR & GFRAA in patients over 70 years has not been determined. Clinical correlation is essential. Serum or plasma low density lipoprotein (LDL) cholesterol measurement (mass/volume)Ordered By: David Cummins on 07-16-2022 Cholesterol in LDL [Mass/Vol] 121 mg/dL 0-130 [facility] [place] Serum or plasma urea nitroge n measurement (mass/volume)Ordered By: David Cummins on 07-16-2022 Urea nitrogen [Mass/Vol] 18 mg/dL 7-18 [facility] [place] Thin prep Papanicolaou smear with manual screeningOrdered By: David Cummins on 07-16-2022 Thin prep Papanicolaou smear with manual screening 20 U/L 15-37 [facility] [place] Thin prep Papanicolaou smear with manual screening 5 5-15 [facility] [place] Whole blood hemoglobin A1c/t otal hemoglobin ratio (mass fraction)Ordered By: David Cummins on 07-16-2022 HbA1c (Bld) [Mass fraction] 9.5 % 3.8-5.6 [facility] [place] Comment on above: Normal < 5.7 % Predi abetic 5.7 - 6.4 % Diabetic >or= 6.5 % Please note range changes. Absolute lymphocyte countOrd ered By: Dr. Cristina on 07-12-2022 Lymphocytes Auto (Unsp spec) [#/Vol] 1.47 10*3/uL 0.83-4.51 [facility] [place] Basophil percentageOrdered B y: Dr. Cristina on 07-12-2022 Basophils/100 WBC (Bld) 0.7 % 0-1 [facility] Bilirubin [Mass/Vol] 1.80 mg/dL 0.20-1.00 [facility] Comment on above: For patients on eltr ombopag therapy, use of Dimension [place] TBIL is not recommended. Chloride [Moles/Vol] 105 mmol/L 98-107 [facility] Cholesterol [Mass/Vol] 181 mg/dL <200 [facility] Comment on above: <200 mg/dL Desirable 200-240 mg/dL Borderline >240 mg/dL High Risk Eosinophils/100 WBC (Bld) 1.1 % 0-5 [facility] [place] Glucose [Mass/Vol] 204 mg/dL 74-106 [facility] Comment on above: Glucose result great er than or equal to 200 mg/dLsuggests DIABETES MELLITUS per A.D.A. criteria. Neutrophils (Bld) [#/Vol] 5.0 10*3/uL 2.0-7.7 [facility] [place] Neutrophils/100 WBC (Bld) 70.3 % 47-70 [facility] [place] Potassium [Moles/Vol] 4.0 mmol/L 3.5-5.1 [facility] Protein [Mass/Vol] 6.6 g/dL 6.4-8.2 [facility] Sodium [Moles/Vol] 135 mmol/L 136-145 [facility] Triglyceride [Mass/Vol] 105 mg/dL <199 [facility] Comment on above: The drugs N-Acetylcy steine and Metamizole may falsely depress this assay.Serum Triglycerides Reference Interval Normal <150 mg/dL Borderline high 150 - 199 mg/dL High 200 - 499 mg/dL Very High > or = 500 mg/dL WBC (Bld) [#/Vol] 7.1 10*3/uL 4.4-11.0 [facility] Blood erythrocytes count (nu mber/volume)Ordered By: Dr. Cristina on 07-12-2022 RBC (Bld) [#/Vol] 5.12 10*6/uL 4.6-6.2 [facility] Blood hemoglobin measurement (mass/volume)Ordered By: Dr. Cristina on 07-12-2022 Hemoglobin (Bld) [Mass/Vol] 14.4 g/dL 13.0-16.5 [facility] [place] Blood lymphocytes/100 leukoc ytesOrdered By: Dr. Cristina on 07-12-2022 Lymphocytes/100 WBC (Bld) 20.6 % 19-41 [facility] [place] Blood monocytes/100 leukocyt esOrdered By: Dr. Cristina on 07-12-2022 Monocytes/100 WBC (Bld) 6.9 % 0-10 [facility] Blood platelet mean volumeOr dered By: Dr. Cristina on 07-12-2022 Platelet mean volume (Bld) [Entitic vol] 11.0 fL 6.2-12.0 [facility] [place] Determination of erythrocyte mean corpuscular volume (MCV)Ordered By: Dr. Cristina on 07-12-2022 MCV (RBC) [Entitic vol] 88.9 fL 80-94 [facility] Glucose Glucometer (dC) [M ass/Vol]Ordered By: Dr. Celis on 07-12-2022 Glucose [Mass/Vol] 277 mg/dL 74-106 [facility] Comment on above: MANAGEMENT OF PATIEN T CARE PER NURSING PROTOCOL Hematocrit Auto (Bld) [Volum e fraction]Ordered By: Dr. Cristina on 07-12-2022 Hematocrit (Bld) [Volume fraction] 45.5 % 40-54 [facility] [place] Laboratory - Chemistry and C hemistry - challengeOrdered By: Dr. Cristina on 07-12-2022 ALP [Catalytic activity/Vol] 90 U/L 45-117 [facility] [place] ALT [Catalytic activity/Vol] 32 U/L 16-61 [facility] [place] CO2 [Moles/Vol] 27.0 mmol/L 21.0-32.0 [facility] [place] Globulin (S) [Mass/Vol] 3.3 g/dL 2.2-4.2 [facility] Urea nitrogen/Creatinine [Mass ratio] 15.3 mg/mg 10-20 [facility] [place] Laboratory - Hematology and Cell countsOrdered By: Dr. Cristina on 07-12-2022 Erythrocyte distribution width (RBC) [Entitic vol] 43.1 fL 35.1-43.9 [facility] [place] Erythrocyte distribution width (RBC) [Ratio] 13.2 % 11.6-14.6 [facility] [place] Immature granulocytes/100 WBC (Bld) 0.400 % 0.0-0.9 [facility] [place] Comment on above: IG% - Immature Granu locytes (promyelocytes, myelocytes and metamyelocytes) > 1% indicates that a LEFT SHIFT is Present. MCH (RBC) [Entitic mass] 28.1 pg 27.0-32.0 [facility] [place] Nucleated RBC/100 WBC (Bld) [Ratio] 0 % 0-5 [facility] [place] MCHC Auto (RBC) [Mass/Vol]Or dered By: Dr. Cristina on 07-12-2022 MCHC (RBC) [Mass/Vol] 31.6 g/dL 32-36 [facility] No Panel InformationOrdered By: Dr. Cristina on 07-12-2022 Estimated Creatinine Clearance Calc 99.97 ml/min [facility] [place] Estimated GFR (MDRD) Amer 134 mL/min >60 [facility] [place] Comment on above: GFR Calc Estimated GFR (MDRD) Non-Af Amer 110 mL/min >60 [facility] [place] Comment on above: Non- GFR Calc Platelets bldOrdered By: Dr. Cristina on 07-12-2022 Platelets (Bld) [#/Vol] 300 10*3/uL 150-450 [facility] [place] Serum or plasma albumin david urement (mass/volume)Ordered By: Dr. Cristina on 07-12-2022 Albumin [Mass/Vol] 3.3 g/dL 3.2-5.0 [facility] Serum or plasma albumin/glob ulin mass ratioOrdered By: Dr. Cristina on 07-12-2022 Albumin/Globulin [Mass ratio] 1.0 {ratio} 0.9-2.4 [facility] [place] Serum or plasma calcium david urement (mass/volume)Ordered By: Dr. Cristina on 07-12-2022 Calcium [Mass/Vol] 8.7 mg/dL 8.5-10.1 [facility] Serum or plasma cholesterol in HDL measurement (mass/volume)Ordered By: Dr. Cristina on 07-12-2022 Cholesterol in HDL [Mass/Vol] 40 mg/dL >40 [facility] [place] Comment on above: The drugs N-Acetylcy steine and Metamizole may falsely depress this assay. Reference Range HDL <40 mg/dL Low HDL Cholesterol HDL >or= 60 mg/dL High HDL Cholesterol Serum or plasma cholesterol in VLDL measurement (mass/volume)Ordered By: Dr. Cristina on 07-12-2022 Cholesterol in VLDL [Mass/Vol] 21 mg/dL 5-40 [facility] [place] Serum or plasma creatinine m easurement (mass/volume)Ordered By: Dr. Cristina on 07-12-2022 Creatinine [Mass/Vol] 0.78 mg/dL 0.70-1.30 [facility] Comment on above: The validity of the calculated GFR & GFRAA in patients over 70 years has not been determined. Clinical correlation is essential. Serum or plasma low density lipoprotein (LDL) cholesterol measurement (mass/volume)Ordered By: Dr. Cristina on 07-12-2022 Cholesterol in LDL [Mass/Vol] 120 mg/dL 0-130 [facility] [place] Serum or plasma urea nitroge n measurement (mass/volume)Ordered By: Dr. Cristina on 07-12-2022 Urea nitrogen [Mass/Vol] 12 mg/dL 7-18 [facility] [place] Thin prep Papanicolaou smear with manual screeningOrdered By: Dr. Cristina on 07-12-2022 Thin prep Papanicolaou smear with manual screening 16 U/L 15-37 [facility] [place] Thin prep Papanicolaou smear with manual screening 3 5-15 [facility] [place] Whole blood hemoglobin A1c/t otal hemoglobin ratio (mass fraction)Ordered By: Dr. Cristina on 07-12-2022 HbA1c (Bld) [Mass fraction] 9.3 % 3.8-5.6 [facility] [place] Comment on above: Normal < 5.7 % Predi abetic 5.7 - 6.4 % Diabetic >or= 6.5 % Please note range changes. Absolute lymphocyte countOrd ered By: Dr. Hurley on 07-11-2022 Lymphocytes Auto (Unsp spec) [#/Vol] 1.53 10*3/uL 0.83-4.51 [facility] [place] Basophil percentageOrdered B y: Dr. Hurley on 07-11-2022 Basophils/100 WBC (Bld) 0.7 % 0-1 [facility] [place] [facility] Chloride [Moles/Vol] 104 mmol/L 98-107 [facility] Eosinophils/100 WBC (Bld) 0.9 % 0-5 [facility] [place] Glucose [Mass/Vol] 185 mg/dL 74-106 [facility] Comment on above: Fasting Glucose resu lt greater than or equal to 126 mg/dL suggests DIABETES MELLITUS per A.D.A. criteria. Neutrophils (Bld) [#/Vol] 5.5 10*3/uL 2.0-7.7 [facility] [place] Neutrophils/100 WBC (Bld) 72.4 % 47-70 [facility] [place] Potassium [Moles/Vol] 3.9 mmol/L 3.5-5.1 [facility] Sodium [Moles/Vol] 136 mmol/L 136-145 [facility] WBC (Bld) [#/Vol] 7.5 10*3/uL 4.4-11.0 [facility] Blood erythrocytes count (nu mber/volume)Ordered By: Dr. Hurley on 07-11-2022 RBC (Bld) [#/Vol] 5.32 10*6/uL 4.6-6.2 [facility] Blood hemoglobin measurement (mass/volume)Ordered By: Dr. Hurley on 07-11-2022 Hemoglobin (Bld) [Mass/Vol] 15.1 g/dL 13.0-16.5 [facility] [place] Blood lymphocytes/100 leukoc ytesOrdered By: Dr. Hurley on 07-11-2022 Lymphocytes/100 WBC (Bld) 20.3 % 19-41 [facility] [place] Blood monocytes/100 leukocyt esOrdered By: Dr. Hurley on 07-11-2022 Monocytes/100 WBC (Bld) 5.2 % 0-10 [facility] Blood platelet mean volumeOr dered By: Dr. Hurley on 07-11-2022 Platelet mean volume (Bld) [Entitic vol] 10.4 fL 6.2-12.0 [facility] [place] Determination of erythrocyte mean corpuscular volume (MCV)Ordered By: Dr. Hurley on 07-11-2022 MCV (RBC) [Entitic vol] 88.0 fL 80-94 [facility] Glucose Glucometer (dC) [M ass/Vol]on 07-11-2022 Glucose [Mass/Vol] 133 mg/dL 74-106 [facility] Comment on above: MANAGEMENT OF PATIEN T CARE PER NURSING PROTOCOL Hematocrit Auto (Bld) [Volum e fraction]Ordered By: Dr. Hurley on 07-11-2022 Hematocrit (Bld) [Volume fraction] 46.8 % 40-54 [facility] [place] INR in Blood by Coagulation assayOrdered By: Dr. Hurley on 07-11-2022 INR Coag (Bld) [Relative time] 1.1 {INR} [facility] [place] Laboratory - Chemistry and C hemistry - challengeOrdered By: Dr. Hurley on 07-11-2022 CO2 [Moles/Vol] 32.0 mmol/L 21.0-32.0 [facility] [place] Urea nitrogen/Creatinine [Mass ratio] 15.4 mg/mg 10-20 [facility] [place] Laboratory - CoagulationOrde red By: Dr. Hurley on 07-11-2022 aPTT Coag (Bld) [Time] 26.8 s 24.1-36.2 [facility] PT Coag (PPP) [Time] 13.6 s 11.7-14.9 [facility] Laboratory - Hematology and Cell countsOrdered By: Dr. Hurley on 07-11-2022 Erythrocyte distribution width (RBC) [Entitic vol] 42.4 fL 35.1-43.9 [facility] [place] Erythrocyte distribution width (RBC) [Ratio] 13.2 % 11.6-14.6 [facility] [place] Immature granulocytes/100 WBC (Bld) 0.500 % 0.0-0.9 [facility] [place] Comment on above: IG% - Immature Granu locytes (promyelocytes, myelocytes and metamyelocytes) > 1% indicates that a LEFT SHIFT is Present. MCH (RBC) [Entitic mass] 28.4 pg 27.0-32.0 [facility] [place] Nucleated RBC/100 WBC (Bld) [Ratio] 0 % 0-5 [facility] [place] MCHC Auto (RBC) [Mass/Vol]Or dered By: Dr. Hurley on 07-11-2022 MCHC (RBC) [Mass/Vol] 32.3 g/dL 32-36 [facility] No Panel InformationOrdered By: Dr. Hurley on 07-11-2022 Estimated GFR (MDRD) Amer 123 mL/min >60 [facility] [place] Comment on above: GFR Calc Estimated GFR (MDRD) Non-Af Amer 101 mL/min >60 [facility] [place] Comment on above: Non- GFR Calc Troponin I High Sensitivity 8 pg/mL 3.0-78.0 [facility] [place] Comment on above: Please Note: New María t Units and Gender Specific Reference Ranges. For more information see Policy Stat Procedure [place] High Sensitivity Troponin (TNIH) and attachments. Platelets bldOrdered By: Dr. Hurley on 07-11-2022 Platelets (Bld) [#/Vol] 320 10*3/uL 150-450 [facility] [place] Serum or plasma calcium david urement (mass/volume)Ordered By: Dr. Hurley on 07-11-2022 Calcium [Mass/Vol] 9.4 mg/dL 8.5-10.1 [facility] Serum or plasma creatinine m easurement (mass/volume)Ordered By: Dr. Hurley on 07-11-2022 Creatinine [Mass/Vol] 0.84 mg/dL 0.70-1.30 [facility] Comment on above: The validity of the calculated GFR & GFRAA in patients over 70 years has not been determined. Clinical correlation is essential. Serum or plasma urea nitroge n measurement (mass/volume)Ordered By: Dr. Hurley on 07-11-2022 Urea nitrogen [Mass/Vol] 13 mg/dL 7-18 [facility] [place] Thin prep Papanicolaou smear with manual screeningOrdered By: Dr. Hurley on 07-11-2022 Thin prep Papanicolaou smear with manual screening 0 5-15 [facility] [place] Basophil percentageOrdered B y: David Cummins on 04-30-2022 Bilirubin [Mass/Vol] 1.60 mg/dL 0.20-1.00 [facility] Comment on above: For patients on eltr ombopag therapy, use of Dimension [place] TBIL is not recommended. Chloride [Moles/Vol] 107 mmol/L 98-107 [facility] Cholesterol [Mass/Vol] 202 mg/dL <200 [facility] Comment on above: <200 mg/dL Desirable 200-240 mg/dL Borderline >240 mg/dL High Risk Glucose [Mass/Vol] 191 mg/dL 74-106 [facility] Comment on above: Fasting Glucose resu lt greater than or equal to 126 mg/dL suggests DIABETES MELLITUS per A.D.A. criteria. Potassium [Moles/Vol] 3.9 mmol/L 3.5-5.1 [facility] Protein [Mass/Vol] 6.6 g/dL 6.4-8.2 [facility] Sodium [Moles/Vol] 142 mmol/L 136-145 [facility] Triglyceride [Mass/Vol] 99 mg/dL <199 [facility] [place] [facility] Comment on above: The drugs N-Acetylcy steine and Metamizole may falsely depress this assay.Serum Triglycerides Reference Interval Normal <150 mg/dL Borderline high 150 - 199 mg/dL High 200 - 499 mg/dL Very High > or = 500 mg/dL WBC (Bld) [#/Vol] 6.8 10*3/uL 4.4-11.0 [facility] Blood erythrocytes count (nu mber/volume)Ordered By: David Cummins on 04-30-2022 RBC (Bld) [#/Vol] 5.01 10*6/uL 4.6-6.2 [facility] Blood hemoglobin measurement (mass/volume)Ordered By: David Cummins on 04-30-2022 Hemoglobin (Bld) [Mass/Vol] 14.4 g/dL 13.0-16.5 [facility] [place] Blood platelet mean volumeOr dered By: David Cummins on 04-30-2022 Platelet mean volume (Bld) [Entitic vol] 11.4 fL 6.2-12.0 [facility] [place] Determination of erythrocyte mean corpuscular volume (MCV)Ordered By: David Cummins on 04-30-2022 MCV (RBC) [Entitic vol] 88.0 fL 80-94 [facility] Hematocrit Auto (Bld) [Volum e fraction]Ordered By: David Cumimns on 04-30-2022 Hematocrit (Bld) [Volume fraction] 44.1 % 40-54 [facility] [place] Iron measurement (mass/mass) Ordered By: David Cummins on 04-30-2022 Iron (Unsp spec) [Mass/Mass] 72 ug/dL 65-175 [facility] [place] Laboratory - Chemistry and C hemistry - challengeOrdered By: David Cummins on 04-30-2022 ALP [Catalytic activity/Vol] 97 U/L 45-117 [facility] [place] ALT [Catalytic activity/Vol] 25 U/L 16-61 [facility] [place] CO2 [Moles/Vol] 30.0 mmol/L 21.0-32.0 [facility] [place] Globulin (S) [Mass/Vol] 3.3 g/dL 2.2-4.2 [facility] Urea nitrogen/Creatinine [Mass ratio] 23.1 mg/mg 10-20 [facility] [place] Laboratory - Hematology and Cell countsOrdered By: David Cummins on 04-30-2022 Erythrocyte distribution width (RBC) [Entitic vol] 42.0 fL 35.1-43.9 [facility] [place] Erythrocyte distribution width (RBC) [Ratio] 13.1 % 11.6-14.6 [facility] [place] MCH (RBC) [Entitic mass] 28.7 pg 27.0-32.0 [facility] [place] MCHC Auto (RBC) [Mass/Vol]Or dered By: David Cummins on 04-30-2022 MCHC (RBC) [Mass/Vol] 32.7 g/dL 32-36 [facility] No Panel InformationOrdered By: David Cummins on 04-30-2022 Estimated GFR (MDRD) Amer 126 mL/min >60 [facility] [place] Comment on above: GFR Calc Estimated GFR (MDRD) Non-Af Amer 104 mL/min >60 [facility] [place] Comment on above: Non- GFR Calc Total Iron Binding Capacity 270 ug/dL 250-450 [facility] [place] Vitamin D 25-Hydroxy 27.8 ng/mL [facility] Comment on above: Vitamin D 25(OH) Sta tus Range Deficiency <20 ng/mL (50nmol/L) Insufficiency 20 - 30 ng/mL (50 - 75 nmol/L) Sufficiency 30 - 100 ng/mL (75 - 250 nmol/L) Toxicity >100 ng/mL (>250 nmol/L) Platelets bldOrdered By: Sixto Cummins on 04-30-2022 Platelets (Bld) [#/Vol] 249 10*3/uL 150-450 [facility] [place] Serum or plasma albumin david urement (mass/volume)Ordered By: David Cummins on 04-30-2022 Albumin [Mass/Vol] 3.3 g/dL 3.2-5.0 [facility] Serum or plasma albumin/glob ulin mass ratioOrdered By: David Cummins on 04-30-2022 Albumin/Globulin [Mass ratio] 1.0 {ratio} 0.9-2.4 [facility] [place] Serum or plasma calcium david urement (mass/volume)Ordered By: David Cummins on 04-30-2022 Calcium [Mass/Vol] 8.8 mg/dL 8.5-10.1 [facility] Serum or plasma cholesterol in HDL measurement (mass/volume)Ordered By: David Cummins on 04-30-2022 Cholesterol in HDL [Mass/Vol] 47 mg/dL >40 [facility] [place] Comment on above: The drugs N-Acetylcy steine and Metamizole may falsely depress this assay. Reference Range HDL <40 mg/dL Low HDL Cholesterol HDL >or= 60 mg/dL High HDL Cholesterol Serum or plasma cholesterol in VLDL measurement (mass/volume)Ordered By: David Cummins on 04-30-2022 Cholesterol in VLDL [Mass/Vol] 20 mg/dL 5-40 [facility] [place] Serum or plasma creatinine m easurement (mass/volume)Ordered By: David Cummins on 04-30-2022 Creatinine [Mass/Vol] 0.82 mg/dL 0.70-1.30 [facility] Comment on above: The validity of the calculated GFR & GFRAA in patients over 70 years has not been determined. Clinical correlation is essential. Serum or plasma low density lipoprotein (LDL) cholesterol measurement (mass/volume)Ordered By: David Cummins on 04-30-2022 Cholesterol in LDL [Mass/Vol] 135 mg/dL 0-130 [facility] [place] Serum or plasma urea nitroge n measurement (mass/volume)Ordered By: David Cummins on 04-30-2022 Urea nitrogen [Mass/Vol] 19 mg/dL 7-18 [facility] [place] Thin prep Papanicolaou smear with manual screeningOrdered By: David Cummins on 04-30-2022 Thin prep Papanicolaou smear with manual screening 15 U/L 15-37 [facility] [place] Thin prep Papanicolaou smear with manual screening 5 5-15 [facility] [place] Whole blood hemoglobin A1c/t otal hemoglobin ratio (mass fraction)Ordered By: David Cummins on 04-30-2022 HbA1c (Bld) [Mass fraction] 9.3 % 3.8-5.6 [facility] [place] Comment on above: Normal < 5.7 % Predi abetic 5.7 - 6.4 % Diabetic >or= 6.5 % Please note range changes. Basophil percentageOrdered B y: David Cummins on 01-15-2022 Bilirubin [Mass/Vol] 1.60 mg/dL 0.20-1.00 [facility] [facility] Comment on above: For patients on eltr ombopag therapy, use of Dimension [place] TBIL is not recommended. Chloride [Moles/Vol] 104 mmol/L 98-107 [facility] Cholesterol [Mass/Vol] 281 mg/dL <200 [facility] Comment on above: <200 mg/dL Desirable 200-240 mg/dL Borderline >240 mg/dL High Risk Glucose [Mass/Vol] 138 mg/dL 74-106 [facility] Comment on above: Fasting Glucose resu lt greater than or equal to 126 mg/dL suggests DIABETES MELLITUS per A.D.A. criteria. Potassium [Moles/Vol] 3.9 mmol/L 3.5-5.1 [facility] Protein [Mass/Vol] 6.5 g/dL 6.4-8.2 [facility] Sodium [Moles/Vol] 139 mmol/L 136-145 [facility] Triglyceride [Mass/Vol] 125 mg/dL <199 [facility] Comment on above: The drugs N-Acetylcy steine and Metamizole may falsely depress this assay.Serum Triglycerides Reference Interval Normal <150 mg/dL Borderline high 150 - 199 mg/dL High 200 - 499 mg/dL Very High > or = 500 mg/dL Laboratory - Chemistry and C hemistry - challengeOrdered By: David Cummins on 01-15-2022 ALP [Catalytic activity/Vol] 97 U/L 45-117 [facility] [place] ALT [Catalytic activity/Vol] 25 U/L 16-61 [facility] [place] CO2 [Moles/Vol] 29.0 mmol/L 21.0-32.0 [facility] [place] Globulin (S) [Mass/Vol] 3.2 g/dL 2.2-4.2 [facility] Urea nitrogen/Creatinine [Mass ratio] 20.6 mg/mg 10-20 [facility] [place] No Panel InformationOrdered By: David Cummins on 01-15-2022 Estimated GFR (MDRD) Amer 135 mL/min >60 [facility] [place] Comment on above: GFR Calc Estimated GFR (MDRD) Non-Af Amer 112 mL/min >60 [facility] [place] Comment on above: Non- GFR Calc Vitamin D 25-Hydroxy 24.0 ng/mL [facility] Comment on above: Vitamin D 25(OH) Sta tus Range Deficiency <20 ng/mL (50nmol/L) Insufficiency 20 - 30 ng/mL (50 - 75 nmol/L) Sufficiency 30 - 100 ng/mL (75 - 250 nmol/L) Toxicity >100 ng/mL (>250 nmol/L) Serum or plasma albumin david urement (mass/volume)Ordered By: David Cummins on 01-15-2022 Albumin [Mass/Vol] 3.3 g/dL 3.2-5.0 [facility] Serum or plasma albumin/glob ulin mass ratioOrdered By: David Cummins on 01-15-2022 Albumin/Globulin [Mass ratio] 1.0 {ratio} 0.9-2.4 [facility] [place] Serum or plasma calcium david urement (mass/volume)Ordered By: David Cummins on 01-15-2022 Calcium [Mass/Vol] 8.7 mg/dL 8.5-10.1 [facility] Serum or plasma cholesterol in HDL measurement (mass/volume)Ordered By: David Cummins on 01-15-2022 Cholesterol in HDL [Mass/Vol] 44 mg/dL >40 [facility] [place] Comment on above: The drugs N-Acetylcy steine and Metamizole may falsely depress this assay. Reference Range HDL <40 mg/dL Low HDL Cholesterol HDL >or= 60 mg/dL High HDL Cholesterol Serum or plasma cholesterol in VLDL measurement (mass/volume)Ordered By: David Cummins on 01-15-2022 Cholesterol in VLDL [Mass/Vol] 25 mg/dL 5-40 [facility] [place] Serum or plasma creatinine m easurement (mass/volume)Ordered By: David Cummins on 01-15-2022 Creatinine [Mass/Vol] 0.78 mg/dL 0.70-1.30 [facility] Comment on above: The validity of the calculated GFR & GFRAA in patients over 70 years has not been determined. Clinical correlation is essential. Serum or plasma low density lipoprotein (LDL) cholesterol measurement (mass/volume)Ordered By: David Cummins on 01-15-2022 Cholesterol in LDL [Mass/Vol] 212 mg/dL 0-130 [facility] [place] Serum or plasma urea nitroge n measurement (mass/volume)Ordered By: David Cummins on 01-15-2022 Urea nitrogen [Mass/Vol] 16 mg/dL 7-18 [facility] [place] Thin prep Papanicolaou smear with manual screeningOrdered By: David Cummins on 01-15-2022 Thin prep Papanicolaou smear with manual screening 16 U/L 15-37 [facility] [place] Thin prep Papanicolaou smear with manual screening 6 5-15 [facility] [place] Whole blood hemoglobin A1c/t otal hemoglobin ratio (mass fraction)Ordered By: David Cummins on 01-15-2022 HbA1c (Bld) [Mass fraction] 8.8 % 3.8-5.6 [facility] [place] Comment on above: Normal < 5.7 % Predi abetic 5.7 - 6.4 % Diabetic >or= 6.5 % Please note range changes. Absolute lymphocyte counton 08-14-2021 Lymphocytes Auto (Unsp spec) [#/Vol] 1.26 10*3/uL 0.83-4.51 [facility] [place] Work Phone: Basophil percentageon 2021 Basophils/100 WBC (Bld) 0.5 % 0-1 [facility] Work Phone: Chloride [Moles/Vol] 95 mmol/L 98-107 [facility] Work Phone: Eosinophils/100 WBC (Bld) 0.6 % 0-5 [facility] [place] Work Phone: Glucose [Mass/Vol] 331 mg/dL 74-106 [facility] Work Phone: Comment on above: Glucose result great er than or equal to 200 mg/dLsuggests DIABETES MELLITUS per A.D.A. criteria. Neutrophils (Bld) [#/Vol] 12.9 10*3/uL 2.0-7.7 [facility] [place] Work Phone: Neutrophils/100 WBC (Bld) 82.1 % 47-70 [facility] [place] Work Phone: Potassium [Moles/Vol] 4.1 mmol/L 3.5-5.1 [facility] Work Phone: Sodium [Moles/Vol] 133 mmol/L 136-145 [facility] Work Phone: WBC (Bld) [#/Vol] 15.7 10*3/uL 4.4-11.0 [facility] Work Phone: Blood erythrocytes count (nu mber/volume)on 08-14-2021 RBC (Bld) [#/Vol] 4.28 10*6/uL 4.6-6.2 [facility] Work Phone: Blood hemoglobin measurement (mass/volume)on 08-14-2021 Hemoglobin (Bld) [Mass/Vol] 12.1 g/dL 13.0-16.5 [facility] [place] Work Phone: Blood lymphocytes/100 leukoc yteson 08-14-2021 Lymphocytes/100 WBC (Bld) 8.0 % 19-41 [facility] [place] Work Phone: [phone] Blood monocytes/100 leukocyt eson 08-14-2021 Monocytes/100 WBC (Bld) 6.4 % 0-10 [facility] Work Phone: [phone] Blood platelet mean volumeon 08-14-2021 Platelet mean volume (Bld) [Entitic vol] 10.9 fL 6.2-12.0 [facility] [place] Work Phone: [phone] Determination of erythrocyte mean corpuscular volume (MCV)on 08-14-2021 MCV (RBC) [Entitic vol] 88.6 fL 80-94 [facility] Work Phone: [phone] Hematocrit Auto (Bld) [Volum e fraction]on 08-14-2021 Hematocrit (Bld) [Volume fraction] 37.9 % 40-54 [facility] [place] Work Phone: Laboratory - Chemistry and C hemistry - challengeon 08-14-2021 CO2 [Moles/Vol] 31.0 mmol/L 21.0-32.0 [facility] [place] Work Phone: Urea nitrogen/Creatinine [Mass ratio] 9.1 mg/mg 10-20 [facility] [place] Work Phone: [phone] Laboratory - Hematology and Cell countson 08-14-2021 Erythrocyte distribution width (RBC) [Entitic vol] 43.0 fL 35.1-43.9 [facility] [place] Work Phone: [phone] Erythrocyte distribution width (RBC) [Ratio] 13.2 % 11.6-14.6 [facility] [place] Work Phone: [phone] Immature granulocytes/100 WBC (Bld) 2.400 % 0.0-0.9 [facility] [place] Work Phone: [phone] Comment on above: IG% - Immature Granu locytes (promyelocytes, myelocytes and metamyelocytes) > 1% indicates that a LEFT SHIFT is Present. MCH (RBC) [Entitic mass] 28.3 pg 27.0-32.0 [facility] [place] Work Phone: Nucleated RBC/100 WBC (Bld) [Ratio] 0 % 0-5 [facility] [place] Work Phone: MCHC Auto (RBC) [Mass/Vol]on 08-14-2021 MCHC (RBC) [Mass/Vol] 31.9 g/dL 32-36 [facility] Work Phone: No Panel Informationon 08-14 Estimated Creatinine Clearance Calc 79.66 ml/min [facility] [place] Work Phone: Estimated GFR (MDRD) Amer 102 mL/min >60 [facility] [place] Work Phone: Comment on above: GFR Calc Estimated GFR (MDRD) Non-Af Amer 84 mL/min >60 [facility] [place] Work Phone: Comment on above: Non- GFR Calc SARS-CoV-2 & FLU Antigen (Rapid) [facility] [place] Work Phone: Platelets bldon 08-14-2021 Platelets (Bld) [#/Vol] 373 10*3/uL 150-450 [facility] [place] Work Phone: Serum or plasma calcium david urement (mass/volume)on 08-14-2021 Calcium [Mass/Vol] 8.6 mg/dL 8.5-10.1 [facility] Work Phone: [phone] Serum or plasma creatinine m easurement (mass/volume)on 08-14-2021 Creatinine [Mass/Vol] 0.99 mg/dL 0.70-1.30 [facility] Work Phone: Comment on above: The validity of the calculated GFR & GFRAA in patients over 70 years has not been determined. Clinical correlation is essential. Serum or plasma urea nitroge n measurement (mass/volume)on 08-14-2021 Urea nitrogen [Mass/Vol] 9 mg/dL 7-18 [facility] [place] Work Phone: [phone] Thin prep Papanicolaou smear with manual screeningon 08-14-2021 Thin prep Papanicolaou smear with manual screening 7 5-15 [facility] [place] Work Phone: Absolute lymphocyte counton 08-10-2021 Lymphocytes Auto (Unsp spec) [#/Vol] 0.25 10*3/uL 0.83-4.51 [facility] [place] Work Phone: Basophil percentageon 2021 Basophil percentage Not Reportable [facility] Work Phone: [phone] Bilirubin [Mass/Vol] 0.60 mg/dL 0.20-1.00 [facility] Work Phone: Comment on above: For patients on eltr ombopag therapy, use of Dimension [place] TBIL is not recommended. Chloride [Moles/Vol] 95 mmol/L 98-107 [facility] Work Phone: Glucose [Mass/Vol] 259 mg/dL 74-106 [facility] Work Phone: Comment on above: Glucose result great er than or equal to 200 mg/dLsuggests DIABETES MELLITUS per A.D.A. criteria. Neutrophils (Bld) [#/Vol] 24.2 10*3/uL 2.0-7.7 [facility] [place] Work Phone: Potassium [Moles/Vol] 4.5 mmol/L 3.5-5.1 [facility] Work Phone: [phone] Protein [Mass/Vol] 6.2 g/dL 6.4-8.2 [facility] Work Phone: [phone] Sodium [Moles/Vol] 134 mmol/L 136-145 [facility] Work Phone: [phone] WBC (Bld) [#/Vol] 25.4 10*3/uL 4.4-11.0 [facility] Work Phone: [phone] Blood band neutrophil count as percentage of total leukocyteson 08-10-2021 Band form neutrophils/100 WBC (Bld) 1 % 0-5 [facility] [place] Work Phone: [phone] Blood erythrocytes count (nu mber/volume)on 08-10-2021 RBC (Bld) [#/Vol] 4.54 10*6/uL 4.6-6.2 [facility] Work Phone: Blood hemoglobin measurement (mass/volume)on 08-10-2021 Hemoglobin (Bld) [Mass/Vol] 12.8 g/dL 13.0-16.5 [facility] [place] Work Phone: Blood lymphocytes/100 leukoc yteson 08-10-2021 Lymphocytes/100 WBC (Bld) 1 % 19-41 [facility] [place] Work Phone: Blood metamyelocytes/100 dixie kocyteson 08-10-2021 Metamyelocytes/100 WBC (Bld) 3 % 0-1 [facility] [place] Work Phone: Blood monocytes/100 leukocyt eson 08-10-2021 Monocytes/100 WBC (Bld) 4 % 0-10 [facility] Work Phone: Blood platelet adequacy dete ction by light microscopyon 08-10-2021 Platelets LM Ql (Bld) ADEQUATE ADEQ [facility] Work Phone: Blood platelet mean volumeon 08-10-2021 Platelet mean volume (Bld) [Entitic vol] 10.4 fL 6.2-12.0 [facility] [place] Work Phone: Blood promyelocytes/100 leuk ocyteson 08-10-2021 Promyelocytes/100 WBC (Bld) 1 % 0-0 [facility] [place] Work Phone: Blood segmented neutrophils/ 100 leukocyteson 08-10-2021 Segmented neutrophils/100 WBC (Bld) 90 % 47-70 [facility] [place] Work Phone: Determination of erythrocyte mean corpuscular volume (MCV)on 08-10-2021 MCV (RBC) [Entitic vol] 87.7 fL 80-94 [facility] Work Phone: Glucose Glucometer (BldC) [M ass/Vol]on 08-10-2021 Glucose [Mass/Vol] 304 mg/dL 74-106 [facility] Work Phone: [phone] Comment on above: MANAGEMENT OF PATIEN T CARE PER NURSING PROTOCOL Hematocrit Auto (Bld) [Volum e fraction]on 08-10-2021 Hematocrit (Bld) [Volume fraction] 39.8 % 40-54 [facility] [place] Work Phone: [phone] Laboratory - Chemistry and C hemistry - challengeon 08-10-2021 ALP [Catalytic activity/Vol] 110 U/L 45-117 [facility] [place] Work Phone: [phone] ALT [Catalytic activity/Vol] 26 U/L 16-61 [facility] [place] Work Phone: [phone] CO2 [Moles/Vol] 35.0 mmol/L 21.0-32.0 [facility] [place] Work Phone: [phone] Globulin (S) [Mass/Vol] 4.4 g/dL 2.2-4.2 [facility] Work Phone: [phone] Urea nitrogen/Creatinine [Mass ratio] 14.0 mg/mg 10-20 [facility] [place] Work Phone: [phone] Laboratory - Hematology and Cell countson 08-10-2021 Erythrocyte distribution width (RBC) [Entitic vol] 43.7 fL 35.1-43.9 [facility] [place] Work Phone: [phone] Erythrocyte distribution width (RBC) [Ratio] 13.6 % 11.6-14.6 [facility] [place] Work Phone: [phone] MCH (RBC) [Entitic mass] 28.2 pg 27.0-32.0 [facility] [place] Work Phone: [phone] MCHC Auto (RBC) [Mass/Vol]on 08-10-2021 MCHC (RBC) [Mass/Vol] 32.2 g/dL 32-36 [facility] Work Phone: [phone] No Panel Informationon 08-10 Estimated Creatinine Clearance Calc 109.53 ml/min [facility] [place] Work Phone: [phone] Estimated GFR (MDRD) Amer 148 mL/min >60 [facility] [place] Work Phone: Comment on above: GFR Calc Estimated GFR (MDRD) Non-Af Amer 123 mL/min >60 [facility] [place] Work Phone: Comment on above: Non- GFR Calc Platelets bldon 08-10-2021 Platelets (Bld) [#/Vol] 362 10*3/uL 150-450 [facility] [place] Work Phone: [phone] RBC morphologyon 08-10-2021 RBC morphology finding Nom (Bld) NORM C+C NORMAL NORM C&C [facility] [place] Work Phone: [phone] Review by pathologiston 07-19 Pathologist review Socrates (Unsp spec) [Interp] Reviewed [facility] [place] Work Phone: Comment on above: Previous reported re sult: Freya lara Edited by: SIMBA on 08/10/21:1247Neutrophilic leukocytosis with left shift. Clinical correlation necessary.Caleb Escalante M.D. 08/10/21 AMENDED REPORT 08/10/21 1247 PATH REV previously reported as: Freya lara Serum or plasma albumin david urement (mass/volume)on 08-10-2021 Albumin [Mass/Vol] 1.8 g/dL 3.2-5.0 [facility] Work Phone: Serum or plasma albumin/glob ulin mass ratioon 08-10-2021 Albumin/Globulin [Mass ratio] 0.4 {ratio} 0.9-2.4 [facility] [place] Work Phone: [phone] Serum or plasma calcium david urement (mass/volume)on 08-10-2021 Calcium [Mass/Vol] 8.8 mg/dL 8.5-10.1 [facility] Work Phone: [phone] Serum or plasma creatinine m easurement (mass/volume)on 08-10-2021 Creatinine [Mass/Vol] 0.72 mg/dL 0.70-1.30 [facility] Work Phone: Comment on above: The validity of the calculated GFR & GFRAA in patients over 70 years has not been determined. Clinical correlation is essential. Serum or plasma urea nitroge n measurement (mass/volume)on 08-10-2021 Urea nitrogen [Mass/Vol] 10 mg/dL 7-18 [facility] [place] Work Phone: Thin prep Papanicolaou smear with manual screeningon 08-10-2021 Thin prep Papanicolaou smear with manual screening 21 U/L 15-37 [facility] [place] Work Phone: Thin prep Papanicolaou smear with manual screening 4 5-15 [facility] [place] Work Phone: Total cell counton 2 Cells counted Molgen (Bld/Tiss) [#] 100 MANUAL DIFF [facility] [place] Work Phone: Blood blasts/100 leukocyteso n 08-09-2021 Blasts/100 WBC (Bld) 1 % 0-0 [facility] Work Phone: Laboratory - Hematology and Cell countson 08-09-2021 Myelocytes/100 WBC (Bld) 2 % 0-0 [facility] [place] Work Phone: Vancomycin troughon 08-10-19 Vancomycin trough [Mass/Vol] 12.8 ug/mL 5.0-15.0 [facility] [place] Work Phone: Comment on above: VANCOMYCIN STANDARED DRUG THERAPY TROUGH LEVEL: 5.0 - 15.0 mg/L VANCOMYCIN HIGH INTENSITY THERAPY TROUGH LEVEL: 15.0 - 20.0 mg/L High Intensity therapy recommended for serious lifethreatening infections include:- Vpyepcevhv-Yluvoqqadvmx-Rzzfqdgka (Ventilator/Healt[employer] Associated)-Sepsis PLEASE CONTACT PHARMACY SERVICES (#[id number]) FOR INTERPRETATIONOF RESULTS. Blood eosinophils/100 leukoc yteson 08-08-2021 Eosinophils/100 WBC (Bld) 1 % 0-5 [facility] [place] Work Phone: Laboratory - Chemistry and C hemistry - challengeon 08-07-2021 Magnesium [Mass/Vol] 2.1 mg/dL 1.6-2.6 [facility] Work Phone: Laboratory - Microbiology an d Antimicrobial susceptibilityon 08-07-2021 Bacteria identified Cx Nom (Bld) Meth. resistant Staph. aureus [facility] [place] Work Phone: Bacteria identified Cx Nom (Bld) No growth in 5 days. [facility] [place] Work Phone: No Panel Informationon 08-06 Methicillin-Resist S.aureus DNA PCR Negative Negative [facility] [place] Work Phone: Absolute lymphocyte counton 08-05-2021 Lymphocytes Auto (Unsp spec) [#/Vol] 0.73 10*3/uL 0.83-4.51 [facility] [place] Work Phone: Basophil percentageon 2021 Basophils/100 WBC (Bld) 0.3 % 0-1 [facility] Work Phone: Bilirubin [Mass/Vol] 0.70 mg/dL 0.20-1.00 [facility] Work Phone: Comment on above: For patients on eltr ombopag therapy, use of Dimension [place] TBIL is not recommended. Chloride [Moles/Vol] 104 mmol/L 98-107 [facility] Work Phone: Eosinophils/100 WBC (Bld) 0.1 % 0-5 [facility] [place] Work Phone: [phone] Glucose [Mass/Vol] 267 mg/dL 74-106 [facility] Work Phone: Comment on above: Glucose result great er than or equal to 200 mg/dLsuggests DIABETES MELLITUS per A.D.A. criteria. Neutrophils (Bld) [#/Vol] 18.5 10*3/uL 2.0-7.7 [facility] [place] Work Phone: Neutrophils/100 WBC (Bld) 88.4 % 47-70 [facility] [place] Work Phone: Potassium [Moles/Vol] 3.8 mmol/L 3.5-5.1 [facility] Work Phone: Protein [Mass/Vol] 7.6 g/dL 6.4-8.2 [facility] Work Phone: Sodium [Moles/Vol] 135 mmol/L 136-145 [facility] Work Phone: WBC (Bld) [#/Vol] 21.0 10*3/uL 4.4-11.0 [facility] Work Phone: Blood erythrocytes count (nu mber/volume)on 08-05-2021 RBC (Bld) [#/Vol] 4.98 10*6/uL 4.6-6.2 [facility] Work Phone: Blood hemoglobin measurement (mass/volume)on 08-05-2021 Hemoglobin (Bld) [Mass/Vol] 14.1 g/dL 13.0-16.5 [facility] [place] Work Phone: Blood lymphocytes/100 leukoc yteson 08-05-2021 Lymphocytes/100 WBC (Bld) 3.5 % 19-41 [facility] [place] Work Phone: Blood monocytes/100 leukocyt eson 08-05-2021 Monocytes/100 WBC (Bld) 4.9 % 0-10 [facility] Work Phone: Blood platelet mean volumeon 08-05-2021 Platelet mean volume (Bld) [Entitic vol] 11.5 fL 6.2-12.0 [facility] [place] Work Phone: Bronchoalveolar lavage cultu re with Gram stainon 08-05-2021 Respiratory Culture Meth. resistant Stap h. aureus [facility] [place] Work Phone: Determination of erythrocyte mean corpuscular volume (MCV)on 08-05-2021 MCV (RBC) [Entitic vol] 85.5 fL 80-94 [facility] Work Phone: Glucose Glucometer (BldC) [M ass/Vol]on 08-05-2021 Glucose [Mass/Vol] 212 mg/dL 74-106 [facility] Work Phone: Comment on above: MANAGEMENT OF PATIEN T CARE PER NURSING PROTOCOL Gram stain for investigation of transfusion reactionon 08-05-2021 Microscopic observation Gram stain Nom (Unsp spec) [facility] [place] Work Phone: Hematocrit Auto (Bld) [Volum e fraction]on 08-05-2021 Hematocrit (Bld) [Volume fraction] 42.6 % 40-54 [facility] [place] Work Phone: [phone] Laboratory - Chemistry and C hemistry - challengeon 08-05-2021 ALP [Catalytic activity/Vol] 110 U/L 45-117 [facility] [place] Work Phone: [phone] ALT [Catalytic activity/Vol] 30 U/L 16-61 [facility] [place] Work Phone: [phone] CO2 [Moles/Vol] 20.0 mmol/L 21.0-32.0 [facility] [place] Work Phone: [phone] Globulin (S) [Mass/Vol] 5.2 g/dL 2.2-4.2 [facility] Work Phone: [phone] Urea nitrogen/Creatinine [Mass ratio] 29.0 mg/mg 10-20 [facility] [place] Work Phone: [phone] Laboratory - Hematology and Cell countson 08-05-2021 Erythrocyte distribution width (RBC) [Entitic vol] 41.7 fL 35.1-43.9 [facility] [place] Work Phone: [phone] Erythrocyte distribution width (RBC) [Ratio] 13.3 % 11.6-14.6 [facility] [place] Work Phone: [phone] Immature granulocytes/100 WBC (Bld) 2.800 % 0.0-0.9 [facility] [place] Work Phone: [phone] Comment on above: IG% - Immature Granu locytes (promyelocytes, myelocytes and metamyelocytes) > 1% indicates that a LEFT SHIFT is Present. MCH (RBC) [Entitic mass] 28.3 pg 27.0-32.0 [facility] [place] Work Phone: [phone] Nucleated RBC/100 WBC (Bld) [Ratio] 0 % 0-5 [facility] [place] Work Phone: [phone] MCHC Auto (RBC) [Mass/Vol]on 08-05-2021 MCHC (RBC) [Mass/Vol] 33.1 g/dL 32-36 [facility] Work Phone: [phone] No Panel Informationon 08-05 Estimated Creatinine Clearance Calc 84.80 ml/min [facility] [place] Work Phone: [phone] Estimated GFR (MDRD) Amer 110 mL/min >60 [facility] [place] Work Phone: [phone] Comment on above: GFR Calc Estimated GFR (MDRD) Non-Af Amer 91 mL/min >60 [facility] [place] Work Phone: [phone] Comment on above: Non- GFR Calc Platelets bldon 08-05-2021 Platelets (Bld) [#/Vol] 385 10*3/uL 150-450 [facility] [place] Work Phone: Serum or plasma albumin david urement (mass/volume)on 08-05-2021 Albumin [Mass/Vol] 2.4 g/dL 3.2-5.0 [facility] Work Phone: [phone] Serum or plasma albumin/glob ulin mass ratioon 08-05-2021 Albumin/Globulin [Mass ratio] 0.5 {ratio} 0.9-2.4 [facility] [place] Work Phone: [phone] Serum or plasma calcium david urement (mass/volume)on 08-05-2021 Calcium [Mass/Vol] 9.0 mg/dL 8.5-10.1 [facility] Work Phone: [phone] Serum or plasma creatinine m easurement (mass/volume)on 08-05-2021 Creatinine [Mass/Vol] 0.93 mg/dL 0.70-1.30 [facility] Work Phone: Comment on above: The validity of the calculated GFR & GFRAA in patients over 70 years has not been determined. Clinical correlation is essential. Serum or plasma urea nitroge n measurement (mass/volume)on 08-05-2021 Urea nitrogen [Mass/Vol] 27 mg/dL 7-18 [facility] [place] Work Phone: [phone] Thin prep Papanicolaou smear with manual screeningon 08-05-2021 Thin prep Papanicolaou smear with manual screening 12 U/L 15-37 [facility] [place] Work Phone: Thin prep Papanicolaou smear with manual screening 11 5-15 [facility] [place] Work Phone: Whole blood hemoglobin A1c/t otal hemoglobin ratio (mass fraction)on 08-05-2021 HbA1c (Bld) [Mass fraction] 9.3 % 3.8-5.6 [facility] [place] Work Phone: Comment on above: Normal < 5.7 % Predi abetic 5.7 - 6.4 % Diabetic >or= 6.5 % Please note range changes. Absolute lymphocyte counton 08-04-2021 Lymphocytes Auto (Unsp spec) [#/Vol] 0.91 10*3/uL 0.83-4.51 [facility] [place] Work Phone: Basophil percentageon 2021 Basophil percentage 0 SEEN /hpf 0-5 [facility] Work Phone: Lactate [Moles/Vol] 1.3 mmol/L 0.4-2.0 [facility] Work Phone: Basophils/100 WBC (Bld) 0.4 % 0-1 [facility] Work Phone: Bilirubin [Mass/Vol] 1.60 mg/dL 0.20-1.00 [facility] Work Phone: Comment on above: For patients on eltr ombopag therapy, use of Dimension [place] TBIL is not recommended. Chloride [Moles/Vol] 94 mmol/L 98-107 [facility] Work Phone: Eosinophils/100 WBC (Bld) 0.1 % 0-5 [facility] [place] Work Phone: Glucose [Mass/Vol] 287 mg/dL 74-106 [facility] Work Phone: Comment on above: Glucose result great er than or equal to 200 mg/dLsuggests DIABETES MELLITUS per A.D.A. criteria. Lymphocytes/100 WBC (Bld) 5.6 % 19-41 [facility] [place] Work Phone: Monocytes/100 WBC (Bld) 6.2 % 0-10 [facility] Work Phone: Neutrophils (Bld) [#/Vol] 13.8 10*3/uL 2.0-7.7 [facility] [place] Work Phone: Neutrophils/100 WBC (Bld) 84.9 % 47-70 [facility] [place] Work Phone: Potassium [Moles/Vol] 3.6 mmol/L 3.5-5.1 [facility] Work Phone: [phone] Protein [Mass/Vol] 7.8 g/dL 6.4-8.2 [facility] Work Phone: [phone] Sodium [Moles/Vol] 132 mmol/L 136-145 [facility] Work Phone: WBC (Bld) [#/Vol] 16.2 10*3/uL 4.4-11.0 [facility] Work Phone: Bilirubin Test strip Ql (U)o n 08-04-2021 Bilirubin Ql (U) Negative Negative [facility] [place] Work Phone: Blood erythrocytes count (nu mber/volume)on 08-04-2021 RBC (Bld) [#/Vol] 5.16 10*6/uL 4.6-6.2 [facility] Work Phone: Blood hemoglobin measurement (mass/volume)on 08-04-2021 Hemoglobin (Bld) [Mass/Vol] 14.7 g/dL 13.0-16.5 [facility] [place] Work Phone: [phone] Blood platelet mean volumeon 08-04-2021 Platelet mean volume (Bld) [Entitic vol] 11.6 fL 6.2-12.0 [facility] [place] Work Phone: Determination of erythrocyte mean corpuscular volume (MCV)on 08-04-2021 MCV (RBC) [Entitic vol] 86.8 fL 80-94 [facility] Work Phone: Glucose Glucometer (BldC) [M ass/Vol]on 08-04-2021 Glucose [Mass/Vol] 410 mg/dL 74-106 [facility] Work Phone: [phone] Comment on above: MANAGEMENT OF PATIEN T CARE PER NURSING PROTOCOL Hematocrit Auto (Bld) [Volum e fraction]on 08-04-2021 Hematocrit (Bld) [Volume fraction] 44.8 % 40-54 [facility] [place] Work Phone: [phone] Ketones Test strip Ql (U)on 08-04-2021 Ketones Ql (U) 150 mg/dl Negative [facility] [place] Work Phone: [phone] Comment on above: CRITICAL VALUE *H Laboratory - Chemistry and C hemistry - challengeon 08-04-2021 ALP [Catalytic activity/Vol] 116 U/L 45-117 [facility] [place] Work Phone: [phone] ALT [Catalytic activity/Vol] 32 U/L 16-61 [facility] [place] Work Phone: [phone] CO2 [Moles/Vol] 22.0 mmol/L 21.0-32.0 [facility] [place] Work Phone: [phone] Globulin (S) [Mass/Vol] 5.3 g/dL 2.2-4.2 [facility] Work Phone: [phone] Urea nitrogen/Creatinine [Mass ratio] 22.2 mg/mg 10-20 [facility] [place] Work Phone: [phone] Laboratory - Hematology and Cell countson 08-04-2021 Erythrocyte distribution width (RBC) [Entitic vol] 41.0 fL 35.1-43.9 [facility] [place] Work Phone: [phone] Erythrocyte distribution width (RBC) [Ratio] 13.0 % 11.6-14.6 [facility] [place] Work Phone: [phone] Immature granulocytes/100 WBC (Bld) 2.800 % 0.0-0.9 [facility] [place] Work Phone: [phone] Comment on above: IG% - Immature Granu locytes (promyelocytes, myelocytes and metamyelocytes) > 1% indicates that a LEFT SHIFT is Present. MCH (RBC) [Entitic mass] 28.5 pg 27.0-32.0 [facility] [place] Work Phone: [phone] MCHC Auto (RBC) [Mass/Vol]on 08-04-2021 MCHC (RBC) [Mass/Vol] 32.8 g/dL 32-36 [facility] Work Phone: [phone] Mucus LM Ql (Urine sed)on Mucus Ql (Urine sed) 0 SEEN /hpf [facility] Work Phone: [phone] Nitrite Test strip Ql (U)on 08-04-2021 Nitrite Ql (U) Negative Negative [facility] [place] Work Phone: [phone] Panel Informationon 08-04 Streptococcus pneumoniae Antigen (M [facility] [place] Work Phone: [phone] Respiratory Panel (PCR) [facility] Work Phone: [phone] D-Dimer Quantitative (PE/DVT) 1.72 FEU/ug/m 0.27-0.49 [facility] [place] Work Phone: [phone] Comment on above: D-Dimer ELEVATED (>0 .49): Additional studies and clinicalassessments are indicated to conclude diagnosis of:Deep Vein Thrombosis (DVT) or Pulmonary Embolism (PE)CRITICAL VALUE VERIFIED. CALLED TO Linette Adam08/04/21 Laron Rocha.RESULTS READ BACK BY SAME . RESULT(S) PREVIOUSLY REPORTED ON MANUAL REQUISITION DURINGDOWNTIME. Estimated GFR (MDRD) Amer 108 mL/min >60 [facility] [place] Work Phone: [phone] Comment on above: GFR Calc Estimated GFR (MDRD) Non-Af Amer 89 mL/min >60 [facility] [place] Work Phone: [phone] Comment on above: Non- GFR Calc Troponin I High Sensitivity 7 pg/mL 3.0-78.0 [facility] [place] Work Phone: [phone] Comment on above: Please Note: New María t Units and Gender Specific Reference Ranges. For more information see Policy Stat Procedure [place] High Sensitivity Troponin (TNIH) and attachments. Platelets bldon 08-04-2021 Platelets (Bld) [#/Vol] 341 10*3/uL 150-450 [facility] [place] Work Phone: [phone] Protein Test strip Ql (U)on 08-04-2021 Protein Ql (U) 30 mg/dl Negative [facility] [place] Work Phone: [phone] Serum or plasma acetone david urement (mass/volume)on 08-04-2021 Acetone [Mass/Vol] SMALL NEG [facility] Work Phone: [phone] Serum or plasma albumin david urement (mass/volume)on 08-04-2021 Albumin [Mass/Vol] 2.5 g/dL 3.2-5.0 [facility] Work Phone: [phone] Serum or plasma albumin/glob ulin mass ratioon 08-04-2021 Albumin/Globulin [Mass ratio] 0.5 {ratio} 0.9-2.4 [facility] [place] Work Phone: [phone] Serum or plasma calcium david urement (mass/volume)on 08-04-2021 Calcium [Mass/Vol] 9.1 mg/dL 8.5-10.1 [facility] Work Phone: [phone] Serum or plasma creatinine m easurement (mass/volume)on 08-04-2021 Creatinine [Mass/Vol] 0.95 mg/dL 0.70-1.30 [facility] Work Phone: Comment on above: The validity of the calculated GFR & GFRAA in patients over 70 years has not been determined. Clinical correlation is essential. Serum or plasma urea nitroge n measurement (mass/volume)on 08-04-2021 Urea nitrogen [Mass/Vol] 21 mg/dL -18 [facility] [place] Work Phone: [phone] Squamous epithelial cells de tection in urine sediment by light microscopyon 08-04-2021 Epithelial cells.squamous LM Ql (Urine sed) 0-5 SEEN /hpf 0-5 [facility] [place] Work Phone: [phone] Thin prep Papanicolaou smear with manual screeningon 08-04-2021 Thin prep Papanicolaou smear with manual screening 18 U/L 15-37 [facility] [place] Work Phone: [phone] Thin prep Papanicolaou smear with manual screening 16 5-15 [facility] [place] Work Phone: Urine blood detectionon 07-18 RBC Ql (U) 25 /ul Negative [facility] [place] Work Phone: RBC Ql (U) 0 SEEN /hpf 0-5 [facility] [place] Work Phone: Urine clarityon 08-04-2021 Clarity (U) Clear Clear [facility] [place] Work Phone: Urine color determinationon 08-04-2021 Color (U) Straw Yellow [facility] [place] Work Phone: Urine glucose detectionon Glucose Ql (U) 1000 mg/dl Normal [facility] [place] Work Phone: Urine leukocyte esterase det ection by dipstickon 08-04-2021 Leukocyte esterase Test strip Ql (U) Negative Negative [facility] [place] Work Phone: Urine pHon 08-04-2021 pH (U) 5.0 [pH] 5.0 - 8.0 [facility] [place] Work Phone: Urine sediment bacteria coun t by microscopy (number/high power field)on 08-04-2021 Bacteria LM.HPF (Urine sed) [#/Area] RARE /hpf None Seen [facility] [place] Work Phone: [phone] Urine sediment yeast count b y microscopy (number/high powered field)on 08-04-2021 Yeast LM.HPF (Urine sed) [#/Area] 1 /[HPF] None Seen [facility] [place] Work Phone: Urine specific gravity measu rementon 08-04-2021 Specific gravity (U) [Rel density] 1.020 1.002-1.030 [facility] [place] Work Phone: [phone] Urobilinogen Auto test strip Ql (U)on 08-04-2021 Urobilinogen Ql (U) Normal mg/dl Normal [facility] Work Phone: [phone] Basophil percentageon 2021 Bilirubin [Mass/Vol] 1.60 mg/dL 0.20-1.00 [facility] Work Phone: Comment on above: For patients on eltr ombopag therapy, use of Dimension [place] TBIL is not recommended. Chloride [Moles/Vol] 102 mmol/L 98-107 [facility] Work Phone: [phone] Glucose [Mass/Vol] 410 mg/dL 74-106 [facility] Work Phone: [phone] Comment on above: Glucose result great er than or equal to 200 mg/dLsuggests DIABETES MELLITUS per A.D.A. criteria. Potassium [Moles/Vol] 3.9 mmol/L 3.5-5.1 [facility] Work Phone: [phone] Protein [Mass/Vol] 7.2 g/dL 6.4-8.2 [facility] Work Phone: [phone] Sodium [Moles/Vol] 137 mmol/L 136-145 [facility] Work Phone: [phone] WBC (Bld) [#/Vol] 6.4 10*3/uL 4.4-11.0 [facility] Work Phone: [phone] Blood erythrocytes count (nu mber/volume)on 07-29-2021 RBC (Bld) [#/Vol] 5.16 10*6/uL 4.6-6.2 [facility] Work Phone: [phone] Blood hemoglobin measurement (mass/volume)on 07-29-2021 Hemoglobin (Bld) [Mass/Vol] 14.7 g/dL 13.0-16.5 [facility] [place] Work Phone: [phone] Blood platelet mean volumeon 07-29-2021 Platelet mean volume (Bld) [Entitic vol] 11.2 fL 6.2-12.0 [facility] [place] Work Phone: [phone] Determination of erythrocyte mean corpuscular volume (MCV)on 07-29-2021 MCV (RBC) [Entitic vol] 86.8 fL 80-94 [facility] Work Phone: [phone] Hematocrit Auto (Bld) [Volum e fraction]on 07-29-2021 Hematocrit (Bld) [Volume fraction] 44.8 % 40-54 [facility] [place] Work Phone: [phone] Laboratory - Chemistry and C hemistry - challengeon 07-29-2021 ALP [Catalytic activity/Vol] 101 U/L 45-117 [facility] [place] Work Phone: [phone] ALT [Catalytic activity/Vol] 39 U/L 16-61 [facility] [place] Work Phone: [phone] CO2 [Moles/Vol] 27.0 mmol/L 21.0-32.0 [facility] [place] Work Phone: [phone] Globulin (S) [Mass/Vol] 3.8 g/dL 2.2-4.2 [facility] Work Phone: [phone] Urea nitrogen/Creatinine [Mass ratio] 9.4 mg/mg 10-20 [facility] [place] Work Phone: [phone] Laboratory - Hematology and Cell countson 07-29-2021 Erythrocyte distribution width (RBC) [Entitic vol] 40.9 fL 35.1-43.9 [facility] [place] Work Phone: [phone] Erythrocyte distribution width (RBC) [Ratio] 12.9 % 11.6-14.6 [facility] [place] Work Phone: [phone] MCH (RBC) [Entitic mass] 28.5 pg 27.0-32.0 [facility] [place] Work Phone: MCHC Auto (RBC) [Mass/Vol]on 07-29-2021 MCHC (RBC) [Mass/Vol] 32.8 g/dL 32-36 [facility] Work Phone: No Panel Informationon 07-29 D-Dimer Quantitative (PE/DVT) < 0.27 FEU/ug/m 0.27-0.49 [facility] [place] Work Phone: Comment on above: NORMAL D-Dimer level (<0.50) indicates no DVT or PE. Estimated GFR (MDRD) Amer 94 mL/min >60 [facility] [place] Work Phone: Comment on above: GFR Calc Estimated GFR (MDRD) Non-Af Amer 78 mL/min >60 [facility] [place] Work Phone: Comment on above: Non- GFR Calc Platelets bldon 07-29-2021 Platelets (Bld) [#/Vol] 221 10*3/uL 150-450 [facility] [place] Work Phone: Serum or plasma C reactive p rotein measurement (mass/volume)on 07-29-2021 CRP [Mass/Vol] 3.99 mg/L 0.0-3.0 [facility] [place] Work Phone: Comment on above: C-Reactive Protein ( CRP) provides useful information for thediagnosis, therapy and monitoring of inflammatory processesand associated diseases. For the evaluation of Relative Riskfor Cardiovascular Disease, a High Sensitivity CRP (HSCRP)should be ordered. Serum or plasma albumin david urement (mass/volume)on 07-29-2021 Albumin [Mass/Vol] 3.4 g/dL 3.2-5.0 [facility] Work Phone: Serum or plasma albumin/glob ulin mass ratioon 07-29-2021 Albumin/Globulin [Mass ratio] 0.9 {ratio} 0.9-2.4 [facility] [place] Work Phone: Serum or plasma calcium david urement (mass/volume)on 07-29-2021 Calcium [Mass/Vol] 8.5 mg/dL 8.5-10.1 [facility] Work Phone: Serum or plasma creatinine m easurement (mass/volume)on 07-29-2021 Creatinine [Mass/Vol] 1.06 mg/dL 0.70-1.30 [facility] Work Phone: Comment on above: The validity of the calculated GFR & GFRAA in patients over 70 years has not been determined. Clinical correlation is essential. Serum or plasma urea nitroge n measurement (mass/volume)on 07-29-2021 Urea nitrogen [Mass/Vol] 10 mg/dL 7-18 [facility] [place] Work Phone: Thin prep Papanicolaou smear with manual screeningon 07-29-2021 Thin prep Papanicolaou smear with manual screening 27 U/L 15-37 [facility] [place] Work Phone: Thin prep Papanicolaou smear with manual screening 8 5-15 [facility] [place] Work Phone: Basophil percentageon 2021 Bilirubin [Mass/Vol] 1.50 mg/dL 0.20-1.00 [facility] Work Phone: Comment on above: For patients on eltr ombopag therapy, use of Dimension [place] TBIL is not recommended. Chloride [Moles/Vol] 104 mmol/L 98-107 [facility] Work Phone: Cholesterol [Mass/Vol] 207 mg/dL <200 [facility] Work Phone: Comment on above: <200 mg/dL Desirable 200-240 mg/dL Borderline >240 mg/dL High Risk Glucose [Mass/Vol] 214 mg/dL 74-106 [facility] Work Phone: Comment on above: Glucose result great er than or equal to 200 mg/dLsuggests DIABETES MELLITUS per A.D.A. criteria. Potassium [Moles/Vol] 4.2 mmol/L 3.5-5.1 [facility] Work Phone: Protein [Mass/Vol] 6.9 g/dL 6.4-8.2 [facility] Work Phone: Sodium [Moles/Vol] 137 mmol/L 136-145 [facility] Work Phone: Triglyceride [Mass/Vol] 105 mg/dL <199 [facility] [place] [facility] Work Phone: Comment on above: The drugs N-Acetylcy steine and Metamizole may falsely depress this assay.Serum Triglycerides Reference Interval Normal <150 mg/dL Borderline high 150 - 199 mg/dL High 200 - 499 mg/dL Very High > or = 500 mg/dL WBC (Bld) [#/Vol] 7.3 10*3/uL 4.4-11.0 [facility] Work Phone: Blood erythrocytes count (nu mber/volume)on 06-26-2021 RBC (Bld) [#/Vol] 5.11 10*6/uL 4.6-6.2 [facility] Work Phone: [phone] Blood hemoglobin measurement (mass/volume)on 06-26-2021 Hemoglobin (Bld) [Mass/Vol] 14.7 g/dL 13.0-16.5 [facility] [place] Work Phone: [phone] Blood platelet mean volumeon 06-26-2021 Platelet mean volume (Bld) [Entitic vol] 10.9 fL 6.2-12.0 [facility] [place] Work Phone: [phone] Determination of erythrocyte mean corpuscular volume (MCV)on 06-26-2021 MCV (RBC) [Entitic vol] 86.1 fL 80-94 [facility] Work Phone: [phone] Hematocrit Auto (Bld) [Volum e fraction]on 06-26-2021 Hematocrit (Bld) [Volume fraction] 44.0 % 40-54 [facility] [place] Work Phone: Iron measurement (mass/mass) on 06-26-2021 Iron (Unsp spec) [Mass/Mass] 67 ug/dL 65-175 [facility] [place] Work Phone: Laboratory - Chemistry and C hemistry - challengeon 06-26-2021 ALP [Catalytic activity/Vol] 89 U/L 45-117 [facility] [place] Work Phone: ALT [Catalytic activity/Vol] 28 U/L 16-61 [facility] [place] Work Phone: CO2 [Moles/Vol] 29.0 mmol/L 21.0-32.0 [facility] [place] Work Phone: Globulin (S) [Mass/Vol] 3.4 g/dL 2.2-4.2 [facility] Work Phone: [phone] Urea nitrogen/Creatinine [Mass ratio] 18.8 mg/mg 10-20 [facility] [place] Work Phone: [phone] Laboratory - Hematology and Cell countson 06-26-2021 Erythrocyte distribution width (RBC) [Entitic vol] 41.1 fL 35.1-43.9 [facility] [place] Work Phone: [phone] Erythrocyte distribution width (RBC) [Ratio] 13.2 % 11.6-14.6 [facility] [place] Work Phone: [phone] MCH (RBC) [Entitic mass] 28.8 pg 27.0-32.0 [facility] [place] Work Phone: [phone] MCHC Auto (RBC) [Mass/Vol]on 06-26-2021 MCHC (RBC) [Mass/Vol] 33.4 g/dL 32-36 [facility] Work Phone: [phone] Panel Informationon 06-26 Estimated GFR (MDRD) Amer 114 mL/min >60 [facility] [place] Work Phone: [phone] Comment on above: GFR Calc Estimated GFR (MDRD) Non-Af Amer 94 mL/min >60 [facility] [place] Work Phone: [phone] Comment on above: Non- GFR Calc Prostate Specific Antigen Screen 1.04 ng/mL 0.00-4.00 [facility] [place] Work Phone: [phone] Comment on above: This test was perfor med using the TPSA assay method for [employer] chemistry system. Values obtained with differentassay methods cannot be used interchangably.When changing PSA assays in the course of monitoring apatient, additional sequential testing should be carriedout to confirm baseline values. Total Iron Binding Capacity 273 ug/dL 250-450 [facility] [place] Work Phone: [phone] Vitamin D 25-Hydroxy 25.0 ng/mL [facility] Work Phone: [phone] Comment on above: Vitamin D 25(OH) Sta tus Range Deficiency <20 ng/mL (50nmol/L) Insufficiency 20 - 30 ng/mL (50 - 75 nmol/L) Sufficiency 30 - 100 ng/mL (75 - 250 nmol/L) Toxicity >100 ng/mL (>250 nmol/L) Platelets bldon 06-26-2021 Platelets (Bld) [#/Vol] 250 10*3/uL 150-450 [facility] [place] Work Phone: [phone] Serum or plasma albumin david urement (mass/volume)on 06-26-2021 Albumin [Mass/Vol] 3.5 g/dL 3.2-5.0 [facility] Work Phone: Serum or plasma albumin/glob ulin mass ratioon 06-26-2021 Albumin/Globulin [Mass ratio] 1.0 {ratio} 0.9-2.4 [facility] [place] Work Phone: Serum or plasma calcium david urement (mass/volume)on 06-26-2021 Calcium [Mass/Vol] 8.0 mg/dL 8.5-10.1 [facility] Work Phone: Serum or plasma cholesterol in HDL measurement (mass/volume)on 06-26-2021 Cholesterol in HDL [Mass/Vol] 42 mg/dL >40 [facility] [place] Work Phone: Comment on above: The drugs N-Acetylcy steine and Metamizole may falsely depress this assay. Reference Range HDL <40 mg/dL Low HDL Cholesterol HDL >or= 60 mg/dL High HDL Cholesterol Serum or plasma cholesterol in VLDL measurement (mass/volume)on 06-26-2021 Cholesterol in VLDL [Mass/Vol] 21 mg/dL 5-40 [facility] [place] Work Phone: Serum or plasma creatinine m easurement (mass/volume)on 06-26-2021 Creatinine [Mass/Vol] 0.90 mg/dL 0.70-1.30 [facility] Work Phone: Comment on above: The validity of the calculated GFR & GFRAA in patients over 70 years has not been determined. Clinical correlation is essential. Serum or plasma low density lipoprotein (LDL) cholesterol measurement (mass/volume)on 06-26-2021 Cholesterol in LDL [Mass/Vol] 144 mg/dL 0-130 [facility] [place] Work Phone: Serum or plasma urea nitroge n measurement (mass/volume)on 06-26-2021 Urea nitrogen [Mass/Vol] 17 mg/dL 7-18 [facility] [place] Work Phone: Thin prep Papanicolaou smear with manual screeningon 06-26-2021 Thin prep Papanicolaou smear with manual screening 14 U/L 15-37 [facility] [place] Work Phone: Thin prep Papanicolaou smear with manual screening 4 5-15 [facility] [place] Work Phone: Whole blood hemoglobin A1c/t otal hemoglobin ratio (mass fraction)on 06-26-2021 HbA1c (Bld) [Mass fraction] 8.6 % 3.8-5.6 [facility] [place] Work Phone: Comment on above: Normal < 5.7 % Predi abetic 5.7 - 6.4 % Diabetic >or= 6.5 % Please note range changes. Bronchoalveolar lavage cultu re with Gram stain Respiratory Culture Meth. resistant Stap h. aureus [facility] [place] Work Phone: Gram stain for investigation of transfusion reaction Microscopic observation Gram stain Nom (Unsp spec) [facility] [place] Work Phone: Laboratory - Microbiology an d Antimicrobial susceptibility Bacteria identified Cx Nom (Bld) No growth in 5 days. [facility] [place] Work Phone: No Panel Information SARS-CoV-2 & FLU Antigen (Rapid) [facility] [place] Work Phone: Streptococcus pneumoniae Antigen (M [facility] [place] Work Phone: Vital Signs Date Time Vital Sign Value Performing Clinician Facility 08-14-2024 17:26-0400 Body height 167.64 cm David Cummins HOUSEHOLD APPLIANCE REPAIRER-C Work Phone: [facility] [place] 08-14-2024 17:26-0400 Body mass index (BMI) [Ratio] 55.3 kg/m2 David Cummins HOUSEHOLD APPLIANCE REPAIRER-C Work Phone: [facility] [place] 08-14-2024 17:26-0400 Body temperature 98.4 [degF] David Cummins HOUSEHOLD APPLIANCE REPAIRER-C Work Phone: [facility] [place] 08-14-2024 17:26-0400 Body weight 155.32 kg David Cummins HOUSEHOLD APPLIANCE REPAIRER-C Work Phone: [facility] [place] 08-14-2024 17:26-0400 Diastolic blood pressure 85 mm[Hg] David Cummins HOUSEHOLD APPLIANCE REPAIRER-C Work Phone: [facility] [place] 08-14-2024 17:26-0400 Heart rate 82 /min David Cummins HOUSEHOLD APPLIANCE REPAIRER-C Work Phone: [facility] [place] 08-14-2024 17:26-0400 Respiratory rate 16 /min David Cummins HOUSEHOLD APPLIANCE REPAIRER-C Work Phone: [facility] [place] 08-14-2024 17:26-0400 SaO2% (BldA) [Mass fraction] 98 % David Cummins HOUSEHOLD APPLIANCE REPAIRER-C Work Phone: [facility] [place] 08-14-2024 17:26-0400 Systolic blood pressure 168 mm[Hg] David Cummins HOUSEHOLD APPLIANCE REPAIRER-C Work Phone: [facility] [place] 12-08-2022 07:20-0400 Blood Pressure Cuff Size PHOEBE BROWN MD [address] [place] [id number] 12-08-2022 07:20-0400 Blood Pressure Location PHOEBE BROWN MD [address] [place] [address] 12-08-2022 07:20-0400 Blood Pressure Method PHOEBE BROWN MD [address] [place] [address] 12-08-2022 07:20-0400 Body temperature 98.06 [degF] PHOEBE BROWN MD [address] [place] [address] 12-08-2022 07:20-0400 Diastolic Blood Pressure Non-Invasive 102 1 PHOEBE BROWN MD [facility] 12-08-2022 07:20-0400 Heart rate 80 /min PHOEBE BROWN MD [address] [place] [address] 12-08-2022 07:20-0400 Respiratory rate 20 /min PHOEBE BROWN MD [facility] 12-08-2022 07:20-0400 Systolic Blood Pressure Non-Invasive 186 1 PHOEBE BROWN MD [address] [place] [address] 12-08-2022 06:15-0400 Respiratory rate 18 /min PHOEBE BROWN MD [facility] 12-07-2022 22:20-0400 Body temperature 98.6 [degF] PHOEBE BROWN MD [facility] 12-07-2022 22:20-0400 Diastolic Blood Pressure Non-Invasive 86 1 PHOEBE BROWN MD [address] [place] [address] 12-07-2022 22:20-0400 Heart rate 75 /min PHOEBE BROWN MD [address] [place] [address] 12-07-2022 22:20-0400 Respiratory rate 18 /min PHOEBE BROWN MD [address] [place] [address] 12-07-2022 22:20-0400 Systolic Blood Pressure Non-Invasive 175 1 PHOEBE BROWN MD [address] [place] [address] 12-07-2022 14:47-0400 Blood Pressure Location PHOEBE BROWN MD [address] [place] [address] 12-07-2022 14:47-0400 Blood Pressure Method PHOEBE BROWN MD [address] [place] [address] 12-07-2022 14:47-0400 Body temperature 98.24 [degF] PHOEBE BROWN MD [address] [place] [address] 12-07-2022 14:47-0400 Diastolic Blood Pressure Non-Invasive 84 1 PHOEBE BROWN MD [facility] 12-07-2022 14:47-0400 Heart rate 76 /min PHOEBE BROWN MD [address] [place] [address] 12-07-2022 14:47-0400 Mean blood pressure 103 mm[Hg] PHOEBE BROWN MD [address] [place] [address] 12-07-2022 14:47-0400 Reason For Taking VItal Signs PHOEBE BROWN MD [address] [place] [address] 12-07-2022 14:47-0400 Systolic Blood Pressure Non-Invasive 153 1 PHOEBE BROWN MD [address] [place] [address] 12-07-2022 09:41-0400 Blood Pressure Location PHOEBE BROWN MD [facility] 12-07-2022 09:41-0400 Blood Pressure Method PHOEBE BROWN MD [address] [place] [address] 12-07-2022 08:03-0400 Mean blood pressure 107 mm[Hg] PHOEBE BROWN MD [address] [place] [address] 12-07-2022 08:03-0400 Reason For Taking VItal Signs PHOEBE BROWN MD [address] [place] [address] 12-07-2022 01:17-0400 Heart rate 92 /min PHOEBE BROWN MD [address] [place] [address] 12-06-2022 22:21-0400 Reason For Taking VItal Signs PHOEBE BROWN MD [address] [place] [address] 12-06-2022 11:08-0400 Blood Pressure Cuff Size PHOEBE BROWN MD [address] [place] [address] 12-06-2022 07:12-0400 Blood Pressure Cuff Size PHOEBE BROWN MD [address] [place] [address] 12-06-2022 07:12-0400 Body temperature 98.6 [degF] PHOEBE BROWN MD [address] [place] [address] 12-06-2022 03:03-0400 Heart rate 97 /min PHOEBE BROWN MD [address] [place] [address] 12-05-2022 22:50-0400 Heart rate 114 /min PHOEBE BROWN MD [address] [place] [address] 12-05-2022 20:02-0400 Heart rate 98 /min PHOEBE BROWN MD [address] [place] [address] 12-05-2022 02:28-0400 Heart rate 96 /min PHOEBE BROWN MD [facility] 12-04-2022 22:25-0400 Heart rate 100 /min PHOEBE BROWN MD [facility] 12-04-2022 17:22-0400 Body height 167.6 cm PHOEBE BROWN MD [facility] 12-04-2022 17:22-0400 Body weight 152.6 kg PHOEBE BROWN MD [facility] 12-04-2022 17:22-0400 Body weight 54.33 kg/m2 PHOEBE BROWN MD [facility] 12-04-2022 16:00-0400 Body temperature 101.48 [degF] BOOGIE REAVA.ai DO [facility] Comment on above: Result Comment: dr. peres notified of temp. order for tylenol received. 12-04-2022 16:00-0400 Diastolic Blood Pressure Non-Invasive 97 1 BOOGIE REICHFIELD DO [facility] 12-04-2022 16:00-0400 Heart rate 115 /[facility] 12-04-2022 16:00-0400 Respiratory rate 25 /min [facility] 12-04-2022 16:00-0400 Systolic Blood Pressure Non-Invasive 179 1 [facility] 12-04-2022 14:29-0400 Diastolic Blood Pressure Non-Invasive 71 1 [facility] 12-04-2022 14:29-0400 Heart rate 109 /min [facility] 12-04-2022 14:29-0400 Respiratory rate 20 /min BOOGIE REICHFIELD DO [facility] 12-04-2022 14:29-0400 Systolic Blood Pressure Non-Invasive 169 1 BOOGIE REICHFIELD DO [facility] 12-04-2022 12:11-0400 Diastolic Blood Pressure Non-Invasive 80 1 BOOGIE REICHFIELD DO [facility] 12-04-2022 12:11-0400 Heart rate 104 /min BOOGIE REICHFIELD DO [facility] 12-04-2022 12:11-0400 Respiratory rate 22 /min BOOGIE REICHFIELD DO [facility] 12-04-2022 12:11-0400 Systolic Blood Pressure Non-Invasive 173 1 BOOGIE REICHFIELD DO [facility] 12-04-2022 10:26-0400 Body temperature 98.78 [degF] BOOGIE REICHFIELD DO [facility] 12-04-2022 10:26-0400 Body weight 162.2 kg BOOGIE REICHFIELD DO [facility] 07-30-2022 13:47-0400 Diastolic blood pressure 70 mm[Hg] 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 REPAIRER-C David Cummins HOUSEHOLD APPLIANCE REPAIRER Work Phone: [facility] [place] 07-30-2022 13:47-0400 Heart rate 94 /min HOUSEHOLD APPLIANCE REPAIRER-C David Cummins HOUSEHOLD APPLIANCE REPAIRER Work Phone: [facility] [place] 07-30-2022 13:47-0400 Respiratory rate 16 /min HOUSEHOLD APPLIANCE REPAIRER-C David Cummins HOUSEHOLD APPLIANCE REPAIRER Work Phone: [facility] [place] 07-30-2022 13:47-0400 SaO2% (BldA) [Mass fraction] 99 % HOUSEHOLD APPLIANCE REPAIRER-C David Shahpkins HOUSEHOLD APPLIANCE REPAIRER Work Phone: [facility] [place] 07-30-2022 13:47-0400 Systolic blood pressure 120 mm[Hg] HOUSEHOLD APPLIANCE REPAIRER-C David Shahpkins HOUSEHOLD APPLIANCE REPAIRER Work Phone: [facility] [place] 07-30-2022 12:37-0400 Body mass index (BMI) [Ratio] 63.7 kg/m2 HOUSEHOLD APPLIANCE REPAIRER-C David Long HOUSEHOLD APPLIANCE REPAIRER Work Phone: [facility] [place] 07-30-2022 12:37-0400 Body weight 179.9 kg HOUSEHOLD APPLIANCE REPAIRER-C David Long HOUSEHOLD APPLIANCE REPAIRER Work Phone: [facility] [place] 07-30-2022 11:10-0400 Body height 167.64 cm HOUSEHOLD APPLIANCE REPAIRER-C David Cummins HOUSEHOLD APPLIANCE REPAIRER Work Phone: [facility] [place] 07-30-2022 11:10-0400 Body temperature 97.8 [degF] HOUSEHOLD APPLIANCE REPAIRER-C David Placido HOUSEHOLD APPLIANCE REPAIRER Work Phone: [facility] [place] 07-20-2022 13:38-0400 Body weight 176.9 kg HOUSEHOLD APPLIANCE REPAIRER-C David Long HOUSEHOLD APPLIANCE REPAIRER Work Phone: [facility] [place] 07-20-2022 13:38-0400 Diastolic blood pressure 72 mm[Hg] HOUSEHOLD APPLIANCE REPAIRER-C David Cummins HOUSEHOLD APPLIANCE REPAIRER Work Phone: [facility] [place] 07-20-2022 13:38-0400 Heart rate 74 /min HOUSEHOLD APPLIANCE REPAIRER-C David Long HOUSEHOLD APPLIANCE REPAIRER Work Phone: [facility] [place] 07-20-2022 13:38-0400 Respiratory rate 18 /min HOUSEHOLD APPLIANCE REPAIRER-C David Cummins HOUSEHOLD APPLIANCE REPAIRER Work Phone: [facility] [place] 07-20-2022 13:38-0400 SaO2% (BldA) [Mass fraction] 96 % HOUSEHOLD APPLIANCE REPAIRER-C David Cummins HOUSEHOLD APPLIANCE REPAIRER Work Phone: [facility] [place] 07-20-2022 13:38-0400 Systolic blood pressure 130 mm[Hg] HOUSEHOLD APPLIANCE REPAIRER-C David Shahpkins HOUSEHOLD APPLIANCE REPAIRER Work Phone: [facility] [place] 07-12-2022 16:20-0400 Body temperature 97.6 [degF] HOUSEHOLD APPLIANCE REPAIRER-C David Shahpkins HOUSEHOLD APPLIANCE REPAIRER Work Phone: [facility] [place] 07-12-2022 16:20-0400 Diastolic blood pressure 76 mm[Hg] HOUSEHOLD APPLIANCE REPAIRER-C David Placido HOUSEHOLD APPLIANCE REPAIRER Work Phone: [facility] [place] 07-12-2022 16:20-0400 Heart rate 93 /min HOUSEHOLD APPLIANCE REPAIRER-C David Shahpkins HOUSEHOLD APPLIANCE REPAIRER Work Phone: [facility] [place] 07-12-2022 16:20-0400 Respiratory rate 15 /min HOUSEHOLD APPLIANCE REPAIRER-C David Placido HOUSEHOLD APPLIANCE REPAIRER Work Phone: [facility] [place] 07-12-2022 16:20-0400 SaO2% (BldA) [Mass fraction] 96 % HOUSEHOLD APPLIANCE REPAIRER-C David Long HOUSEHOLD APPLIANCE REPAIRER Work Phone: [facility] [place] 07-12-2022 16:20-0400 Systolic blood pressure 156 mm[Hg] HOUSEHOLD APPLIANCE REPAIRER-C David Long HOUSEHOLD APPLIANCE REPAIRER Work Phone: [facility] [place] 07-12-2022 16:19-0400 Body mass index (BMI) [Ratio] 57.2 kg/m2 HOUSEHOLD APPLIANCE REPAIRER-C David Long HOUSEHOLD APPLIANCE REPAIRER Work Phone: [facility] [place] 07-12-2022 11:50-0400 Body height 167.64 cm HOUSEHOLD APPLIANCE REPAIRER-C David Shahpkins HOUSEHOLD APPLIANCE REPAIRER Work Phone: [facility] [place] 07-12-2022 11:50-0400 Body weight 160.8 kg HOUSEHOLD APPLIANCE REPAIRER-C David Cummins HOUSEHOLD APPLIANCE REPAIRER Work Phone: [facility] [place] 07-12-2022 05:28-0400 Inhaled oxygen concentration 21 % HOUSEHOLD APPLIANCE REPAIRER-C David Cummins HOUSEHOLD APPLIANCE REPAIRER Work Phone: [facility] [place] 07-11-2022 20:07-0400 Body temperature 98.1 [degF] HOUSEHOLD APPLIANCE REPAIRER-C David Cummins HOUSEHOLD APPLIANCE REPAIRER Work Phone: [facility] [place] 07-11-2022 20:07-0400 Diastolic blood pressure 89 mm[Hg] HOUSEHOLD APPLIANCE REPAIRER-C David Shahpkins HOUSEHOLD APPLIANCE REPAIRER Work Phone: [facility] [place] 07-11-2022 20:07-0400 Heart rate 84 /min HOUSEHOLD APPLIANCE REPAIRER-C David Cummins HOUSEHOLD APPLIANCE REPAIRER Work Phone: [facility] [place] 07-11-2022 20:07-0400 Respiratory rate 18 /min HOUSEHOLD APPLIANCE REPAIRER-C David Long HOUSEHOLD APPLIANCE REPAIRER Work Phone: [facility] [place] 07-11-2022 20:07-0400 SaO2% (BldA) [Mass fraction] 94 % HOUSEHOLD APPLIANCE REPAIRER-C David Placido HOUSEHOLD APPLIANCE REPAIRER Work Phone: [facility] [place] 07-11-2022 20:07-0400 Systolic blood pressure 163 mm[Hg] HOUSEHOLD APPLIANCE REPAIRER-C David Cummins HOUSEHOLD APPLIANCE REPAIRER Work Phone: [facility] [place] 07-11-2022 18:48-0400 Body mass index (BMI) [Ratio] 63.4 kg/m2 HOUSEHOLD APPLIANCE REPAIRER-C David Placido HOUSEHOLD APPLIANCE REPAIRER Work Phone: [facility] [place] 07-11-2022 18:48-0400 Body weight 178.3 kg HOUSEHOLD APPLIANCE REPAIRER-C David Placido HOUSEHOLD APPLIANCE REPAIRER Work Phone: [facility] [place] 07-11-2022 14:45-0400 Body height 167.64 cm HOUSEHOLD APPLIANCE REPAIRER-C David Cummins HOUSEHOLD APPLIANCE REPAIRER Work Phone: [facility] [place] 09-13-2021 13:19-0400 Body height 167.64 cm HOUSEHOLD APPLIANCE REPAIRER-C David Cummins HOUSEHOLD APPLIANCE REPAIRER Work Phone: [facility] [place] Work Phone: 09-13-2021 13:19-0400 Body mass index (BMI) [Ratio] 59 kg/m2 HOUSEHOLD APPLIANCE REPAIRER-C David Cummins HOUSEHOLD APPLIANCE REPAIRER Work Phone: [facility] [place] Work Phone: 09-13-2021 13:19-0400 Body temperature 97.5 [degF] HOUSEHOLD APPLIANCE REPAIRER-C David Cummins HOUSEHOLD APPLIANCE REPAIRER Work Phone: [facility] [place] Work Phone: 09-13-2021 13:19-0400 Body weight 165.78 kg HOUSEHOLD APPLIANCE REPAIRER-C David Cummins HOUSEHOLD APPLIANCE REPAIRER Work Phone: [facility] [place] Work Phone: 09-13-2021 13:19-0400 Diastolic blood pressure 77 mm[Hg] HOUSEHOLD APPLIANCE REPAIRER-C David Cummins HOUSEHOLD APPLIANCE REPAIRER Work Phone: [facility] [place] Work Phone: 09-13-2021 13:19-0400 Heart rate 101 /min HOUSEHOLD APPLIANCE REPAIRER-C David Cummins HOUSEHOLD APPLIANCE REPAIRER Work Phone: [facility] [place] Work Phone: 09-13-2021 13:19-0400 Respiratory rate 16 /min HOUSEHOLD APPLIANCE REPAIRER-C David Cummins HOUSEHOLD APPLIANCE REPAIRER Work Phone: [facility] [place] Work Phone: 09-13-2021 13:19-0400 SaO2% (BldA) [Mass fraction] 94 % HOUSEHOLD APPLIANCE REPAIRER-C David Cummins HOUSEHOLD APPLIANCE REPAIRER Work Phone: [facility] [place] Work Phone: 09-13-2021 13:19-0400 Systolic blood pressure 125 mm[Hg] HOUSEHOLD APPLIANCE REPAIRER-C David Cummins HOUSEHOLD APPLIANCE REPAIRER Work Phone: [facility] [place] Work Phone: 08-14-2021 14:44-0400 Respiratory rate 18 /min HOUSEHOLD APPLIANCE REPAIRER-C David Cummins HOUSEHOLD APPLIANCE REPAIRER Work Phone: [facility] [place] Work Phone: 08-14-2021 14:44-0400 SaO2% (BldA) [Mass fraction] 96 % HOUSEHOLD APPLIANCE REPAIRER-C David Cummins HOUSEHOLD APPLIANCE REPAIRER Work Phone: [facility] [place] Work Phone: 08-14-2021 13:46-0400 Heart rate 108 /min HOUSEHOLD APPLIANCE REPAIRER-C David Cummins HOUSEHOLD APPLIANCE REPAIRER Work Phone: [facility] [place] Work Phone: 08-14-2021 12:36-0400 Body height 167.64 cm HOUSEHOLD APPLIANCE REPAIRER-C David Cummins HOUSEHOLD APPLIANCE REPAIRER Work Phone: [facility] [place] Work Phone: 08-14-2021 12:36-0400 Body mass index (BMI) [Ratio] 58.1 kg/m2 HOUSEHOLD APPLIANCE REPAIRER-C David Cummins HOUSEHOLD APPLIANCE REPAIRER Work Phone: [facility] [place] Work Phone: 08-14-2021 12:36-0400 Body temperature 96.8 [degF] HOUSEHOLD APPLIANCE REPAIRER-C David Cummins HOUSEHOLD APPLIANCE REPAIRER Work Phone: [facility] [place] Work Phone: 08-14-2021 12:36-0400 Body weight 163.29 kg HOUSEHOLD APPLIANCE REPAIRER-C David Cummins HOUSEHOLD APPLIANCE REPAIRER Work Phone: [facility] [place] Work Phone: 08-14-2021 12:36-0400 Diastolic blood pressure 93 mm[Hg] HOUSEHOLD APPLIANCE REPAIRER-C David Cummins HOUSEHOLD APPLIANCE REPAIRER Work Phone: [facility] [place] Work Phone: 08-14-2021 12:36-0400 Systolic blood pressure 132 mm[Hg] HOUSEHOLD APPLIANCE REPAIRER-C David Cummins HOUSEHOLD APPLIANCE REPAIRER Work Phone: [facility] [place] Work Phone: 08-10-2021 13:53-0400 Body temperature 98.5 [degF] HOUSEHOLD APPLIANCE REPAIRER-C David Cummins HOUSEHOLD APPLIANCE REPAIRER Work Phone: [facility] [place] Work Phone: 08-10-2021 13:53-0400 Diastolic blood pressure 65 mm[Hg] HOUSEHOLD APPLIANCE REPAIRER-C David Cummins HOUSEHOLD APPLIANCE REPAIRER Work Phone: [facility] [place] Work Phone: 08-10-2021 13:53-0400 Heart rate 113 /min HOUSEHOLD APPLIANCE REPAIRER-C David Cummins HOUSEHOLD APPLIANCE REPAIRER Work Phone: [facility] [place] Work Phone: 08-10-2021 13:53-0400 Respiratory rate 18 /min HOUSEHOLD APPLIANCE REPAIRER-C David Cummins HOUSEHOLD APPLIANCE REPAIRER Work Phone: [facility] [place] Work Phone: 08-10-2021 13:53-0400 SaO2% (BldA) [Mass fraction] 92 % HOUSEHOLD APPLIANCE REPAIRER-C David Shahpkins HOUSEHOLD APPLIANCE REPAIRER Work Phone: [facility] [place] Work Phone: 08-10-2021 13:53-0400 Systolic blood pressure 135 mm[Hg] HOUSEHOLD APPLIANCE REPAIRER-C David Shahpkins HOUSEHOLD APPLIANCE REPAIRER Work Phone: [facility] [place] Work Phone: 08-10-2021 11:07-0400 Inhaled oxygen flow rate 2 L/min HOUSEHOLD APPLIANCE REPAIRER-C David Shahpkins HOUSEHOLD APPLIANCE REPAIRER Work Phone: [facility] [place] Work Phone: 08-10-2021 06:00-0400 Body weight 171.5 kg HOUSEHOLD APPLIANCE REPAIRER-C David Shahpkins HOUSEHOLD APPLIANCE REPAIRER Work Phone: [facility] [place] Work Phone: 08-07-2021 23:34-0400 Inhaled oxygen concentration 21 % HOUSEHOLD APPLIANCE REPAIRER-C David Cummins HOUSEHOLD APPLIANCE REPAIRER Work Phone: [facility] [place] Work Phone: 08-05-2021 11:04-0400 Body height 167.64 cm HOUSEHOLD APPLIANCE REPAIRER-C David Shahpkins HOUSEHOLD APPLIANCE REPAIRER Work Phone: [facility] [place] Work Phone: 08-05-2021 04:31-0400 Body weight 162.3 kg [facility] Work Phone: 08-05-2021 03:50-0400 Body temperature 98.3 [degF] [facility] Work Phone: 08-05-2021 03:50-0400 Diastolic blood pressure 80 mm[Hg] [facility] [place] Work Phone: 08-05-2021 03:50-0400 Heart rate 102 /min [facility] Work Phone: 08-05-2021 03:50-0400 Respiratory rate 22 /min [facility] Work Phone: 08-05-2021 03:50-0400 SaO2% (BldA) [Mass fraction] 93 % [facility] [place] Work Phone: 08-05-2021 03:50-0400 Systolic blood pressure 161 mm[Hg] [facility] [place] Work Phone: 08-04-2021 17:06-0400 Body height 167.64 cm [facility] Work Phone: 08-04-2021 17:06-0400 Body mass index (BMI) [Ratio] 57.9 kg/m2 [facility] [place] Work Phone: 08-04-2021 16:47-0400 Body temperature 99.1 [degF] [facility] Work Phone: 08-04-2021 16:47-0400 Diastolic blood pressure 100 mm[Hg] [facility] [place] Work Phone: 08-04-2021 16:47-0400 Heart rate 99 /min [facility] Work Phone: 08-04-2021 16:47-0400 Respiratory rate 21 /min [facility] Work Phone: 08-04-2021 16:47-0400 SaO2% (BldA) [Mass fraction] 99 % [facility] [place] Work Phone: 08-04-2021 16:47-0400 Systolic blood pressure 139 mm[Hg] [facility] [facility] [place] Work Phone: 08-04-2021 10:03-0400 Body height 167.64 cm [facility] Work Phone: 08-04-2021 10:03-0400 Body mass index (BMI) [Ratio] 58.1 kg/m2 [facility] [place] Work Phone: 08-04-2021 10:040 Body weight 163.29 kg [facility] Work Phone: Encounters Encounter Date Encounter Type Care Provider Facility Start: 01-23-2025 ambulatory BOOGIE HOSTETLE R LOOM BLOWER-ELECTRICAL AUTOMATION ENGINEER Facility:[facility] Start: 01-02-2025 ambulatory BOOGIE HOSTETLE R LOOM BLOWER-ELECTRICAL AUTOMATION ENGINEER Facility:[facility] Start: 11-22-2024 ambulatory BOOGIE KAYLEY Facilit y:[facility] [place] Start: 11-02-2024 End: 11-02-2024 ambulatory David Cummins HOUSEHOLD APPLIANCE REPAIRER-C Work Phone: -Laboratory Start: 11-02-2024 End: 11-02-2024 Patient encounter procedure BOOGIE KAYLEY HOUSEHOLD APPLIANCE REPAIRER-C -Laboratory Work Phone: Start: 11-02-2024 End: 11-02-2024 ambulatory BOOGIE KAYLEY Facility:[facility] [place] Start: 08-16-2024 End: 08-16-2024 ambulatory BOOGIE KAYLEY LOOM BLOWER-ELECTRICAL AUTOMATION ENGINEER Facility:[facility] Start: 08-16-2024 End: 08-16-2024 Patient encounter procedure BOOGIE KAYLEY LOOM BLOWER-ELECTRICAL AUTOMATION ENGINEER [facility] Start: 08-14-2024 End: 08-14-2024 Emergency department patient visit David Cummins HOUSEHOLD APPLIANCE REPAIRER-C Work Phone: -Emergency Department Work Phone: Start: 04-29-2024 End: 04-29-2024 Patient encounter procedure BOOGIE KAYLEY HOUSEHOLD APPLIANCE REPAIRER-C -Laboratory Work Phone: Start: 04-29-2024 End: 04-29-2024 ambulatory BOOGIE KAYLEY Facility:[facility] [place] Start: 02-19-2024 End: 02-23-2024 ambulatory BOOGIE KAYLEY LOOM BLOWER-ELECTRICAL AUTOMATION ENGINEER Facility:[facility] Start: 02-19-2024 End: 02-23-2024 Outreach Lab MORTEZA MOREL LOOM BLOWER-ELECTRICAL AUTOMATION ENGINEER [facility] Start: 10-18-2023 ambulatory BOOGIE Valera LOOM BLOWER-ELECTRICAL AUTOMATION ENGINEER Facility:[facility] Start: 09-26-2023 End: 09-26-2023 ambulatory BOOGIE ZALDIVAR LOOM BLOWER-ELECTRICAL AUTOMATION ENGINEER Facility:[facility] Start: 09-26-2023 End: 09-26-[address] CUATE SINGLETON DO [facility] Start: 06-15-2023 End: 06-15-2023 ambulatory [facility] [place] Work Phone: Start: 06-15-2023 End: 06-15-2023 Patient encounter procedure [facility] [place]-Laboratory Work Phone: Start: 12-04-2022 End: 12-08-2022 Evaluation and management of inpatient PHOEBEPHOEBE BROWN MD [facility] Start: 12-04-2022 End: 12-04-2022 Emergency department patient visit BOOGIE PERES DO [facility] Start: 07-30-2022 End: 07-30-2022 Emergency department patient visit HOUSEHOLD APPLIANCE REPAIRER-C David Cummins HOUSEHOLD APPLIANCE REPAIRER Work Phone: [facility] [place]-Emergency Department Start: 07-27-2022 Registered Referred HOUSEHOLD APPLIANCE REPAIRER-C Liz Cummins HOUSEHOLD APPLIANCE REPAIRER Work Phone: [facility] [place]-Cardiovascula r Services Start: 07-27-2022 Non-patient / Non-visit HOUSEHOLD APPLIANCE REPAIRER-C Soto Cummins HOUSEHOLD APPLIANCE REPAIRER Work Phone: [facility] [place]-[facility] Start: 07-27-2022 End: 07-27-2022 ambulatory HOUSEHOLD APPLIANCE REPAIRER-C David Cummins HOUSEHOLD APPLIANCE REPAIRER Work Phone: [facility] [place] Work Phone: Start: 07-27-2022 End: 07-27-2022 Patient encounter procedure HOUSEHOLD APPLIANCE REPAIRER-C David Cummins HOUSEHOLD APPLIANCE REPAIRER Work Phone: [facility] [place]-Cardiovascula r Services Start: 07-20-2022 End: 07-20-2022 Patient encounter procedure HOUSEHOLD APPLIANCE REPAIRER-C David Cummins HOUSEHOLD APPLIANCE REPAIRER Work Phone: [facility] Start: 07-16-2022 End: 07-16-2022 ambulatory HOUSEHOLD APPLIANCE REPAIRER-C David Cummins HOUSEHOLD APPLIANCE REPAIRER Work Phone: [facility] [place] Work Phone: Start: 07-16-2022 End: 07-16-2022 Patient encounter procedure HOUSEHOLD APPLIANCE REPAIRER-C David Cummins HOUSEHOLD APPLIANCE REPAIRER Work Phone: [facility] [place]-Laboratory Start: 07-12-2022 Non-patient / Non-visit HOUSEHOLD APPLIANCE REPAIRER-C Soto Cummins HOUSEHOLD APPLIANCE REPAIRER Work Phone: [facility] Start: 07-12-2022 Non-patient / Non-visit HOUSEHOLD APPLIANCE REPAIRER-C Soto Cummins HOUSEHOLD APPLIANCE REPAIRER Work Phone: [facility] Start: 07-11-2022 Non-patient / Non-visit HOUSEHOLD APPLIANCE REPAIRER-C Soto Cummins HOUSEHOLD APPLIANCE REPAIRER Work Phone: [facility] Start: 07-11-2022 End: 07-12-2022 Evaluation and management of inpatient HOUSEHOLD APPLIANCE REPAIRER-C David Cummins HOUSEHOLD APPLIANCE REPAIRER Work Phone: [facility] [place]-Progressive Care Unit Start: 07-11-2022 End: 07-12-2022 observation encounter HOUSEHOLD APPLIANCE REPAIRER-C David Cummins HOUSEHOLD APPLIANCE REPAIRER Work Phone: [facility] [place] Work Phone: Start: 05-20-2022 Non-patient / Non-visit HOUSEHOLD APPLIANCE REPAIRER-C Soto Cummins HOUSEHOLD APPLIANCE REPAIRER Work Phone: [facility] Start: 05-20-2022 End: 05-20-2022 ambulatory HOUSEHOLD APPLIANCE REPAIRER-C David Cummins HOUSEHOLD APPLIANCE REPAIRER Work Phone: [facility] [place] Work Phone: Start: 05-20-2022 End: 05-20-2022 Patient encounter procedure HOUSEHOLD APPLIANCE REPAIRER-C David Cummins HOUSEHOLD APPLIANCE REPAIRER Work Phone: [facility] [place]-Cardiovascula r Services Start: 05-17-2022 End: 05-17-2022 ambulatory HOUSEHOLD APPLIANCE REPAIRER-C David Cummins HOUSEHOLD APPLIANCE REPAIRER Work Phone: [facility] [place] Work Phone: Start: 05-17-2022 End: 05-17-2022 Patient encounter procedure HOUSEHOLD APPLIANCE REPAIRER-C David Cummins HOUSEHOLD APPLIANCE REPAIRER [facility] Start: 04-30-2022 End: 04-30-2022 ambulatory [facility] [place] Work Phone: Start: 04-30-2022 End: 04-30-2022 Patient encounter procedure [facility] [place]-Laboratory Start: 04-15-2022 End: 04-15-2022 ambulatory [facility] [place] Work Phone: Start: 04-15-2022 End: 04-15-2022 Patient encounter [facility] [place] Start: 01-15-2022 End: 01-15-2022 ambulatory [facility] [place] Work Phone: Start: 01-15-2022 End: 01-15-2022 Patient encounter procedure [facility] [place]-Laboratory Start: 10-07-2021 End: 10-07-2021 Patient encounter procedure HOUSEHOLD APPLIANCE REPAIRER-Jasbir Cummins HOUSEHOLD APPLIANCE REPAIRER Work Phone: [facility] [place]-[facility] Start: 09-23-2021 End: 09-23-2021 Patient encounter procedure DAVID CUMMINS LOOM BLOWER - ELECTRICAL AUTOMATION ENGINEER [facility] Start: 09-13-2021 End: 09-13-2021 Patient encounter procedure HOUSEHOLD APPLIANCE REPAIRER-Jasbir Cummins HOUSEHOLD APPLIANCE REPAIRER Work Phone: [facility] [place]-Laboratory, Specimen Start: 09-10-2021 End: 09-10-2021 Patient encounter procedure HOUSEHOLD APPLIANCE REPAIRER-C David Cummins HOUSEHOLD APPLIANCE REPAIRER Work Phone: [facility] [place]-Radiology, [facility] Start: 08-14-2021 End: 08-14-2021 Emergency department patient visit HOUSEHOLD APPLIANCE REPAIRER-C David Cummins HOUSEHOLD APPLIANCE REPAIRER Work Phone: [facility] [place]-Emergency Department Start: 08-10-2021 Non-patient / Non-visit HOUSEHOLD APPLIANCE REPAIRER-C Soto Cummins HOUSEHOLD APPLIANCE REPAIRER Work Phone: [facility] Start: 08-09-2021 Non-patient / Non-visit HOUSEHOLD APPLIANCE REPAIRER-C Soto Cummins HOUSEHOLD APPLIANCE REPAIRER Work Phone: [facility] Start: 08-09-2021 Non-patient / Non-visit HOUSEHOLD APPLIANCE REPAIRER-C Soto Cummins HOUSEHOLD APPLIANCE REPAIRER Work Phone: [facility] Start: 08-08-2021 Non-patient / Non-visit HOUSEHOLD APPLIANCE REPAIRER-C Soto Cummins HOUSEHOLD APPLIANCE REPAIRER Work Phone: [facility] Start: 08-08-2021 Non-patient / Non-visit HOUSEHOLD APPLIANCE REPAIRER-C Soto Cummins HOUSEHOLD APPLIANCE REPAIRER Work Phone: [facility] Start: 08-07-2021 Non-patient / Non-visit HOUSEHOLD APPLIANCE REPAIRER-C Soto Cummins HOUSEHOLD APPLIANCE REPAIRER Work Phone: [facility] Start: 08-07-2021 Non-patient / Non-visit HOUSEHOLD APPLIANCE REPAIRER-C Soto Cummins HOUSEHOLD APPLIANCE REPAIRER Work Phone: [facility] Start: 08-07-2021 Non-patient / Non-visit HOUSEHOLD APPLIANCE REPAIRER-C Soto Cummins HOUSEHOLD APPLIANCE REPAIRER Work Phone: [facility] Start: 08-06-2021 Non-patient / Non-visit HOUSEHOLD APPLIANCE REPAIRER-C R nusrat Shahpkins HOUSEHOLD APPLIANCE REPAIRER Work Phone: [facility] Start: 08-05-2021 Non-patient / Non-visit HOUSEHOLD APPLIANCE REPAIRER-C R nusrat Cummins HOUSEHOLD APPLIANCE REPAIRER Work Phone: [facility] Start: 08-04-2021 End: 08-10-2021 Evaluation and management of inpatient [facility] [place]-Progressive Care Unit Start: 07-29-2021 End: 07-29-2021 Patient encounter procedure [facility] [place]-Laboratory Start: 06-26-2021 End: 06-26-2021 Patient encounter procedure [facility] [place]-Laboratory Procedures Date Procedure Procedure Detail Performing Clinician Start: 11-02-2024 Vitamin D, 25-hydrox y measurement David Shahpkins HOUSEHOLD APPLIANCE REPAIRER-C Work Phone: Comment on above: Vitamin D StatusDefi ciency: <20 ng/mL (50nmol/L)Insufficiency: 20-30 ng/mL (50-75 nmol/L)Sufficiency: 30-100 ng/mL (75-250 nmol/L)Toxicity: >100 ng/mL (>250 nmol/L) Start: 04-29-2024 Measurement of renal function David Shahpkins HOUSEHOLD APPLIANCE REPAIRER-C Work Phone: Comment on above: GFR Calc Start: 04-29-2024 Microalbuminuria measurement David Shahpkins HOUSEHOLD APPLIANCE REPAIRER-C Work Phone: Start: 04-29-2024 Prostate specific an tigen measurement David Shahpkins HOUSEHOLD APPLIANCE REPAIRER-C Work Phone: Comment on above: This test was perfor med using the TPSA assay method for the[employer] chemistry system. Values obtained with differentassay methods cannot be used interchangably.When changing PSA assays in the course of monitoring apatient, additional sequential testing should be carriedout to confirm baseline values. Start: 04-29-2024 Urine microalbumin/creatinine ratio measurement David Placido HOUSEHOLD APPLIANCE REPAIRER-C Work Phone: Start: 07-11-2022 Plain chest X-ray HOUSEHOLD APPLIANCE REPAIRER-C David Long HOUSEHOLD APPLIANCE REPAIRER Work Phone: Start: 07-11-2022 CT angiography of he ad and neck HOUSEHOLD APPLIANCE REPAIRER-C David Cummins HOUSEHOLD APPLIANCE REPAIRER Work Phone: Start: 07-11-2022 CT of head without contrast HOUSEHOLD APPLIANCE REPAIRER-C David Cummins HOUSEHOLD APPLIANCE REPAIRER Work Phone: Start: 05-17-2022 Radiologic examinati on of knee HOUSEHOLD APPLIANCE REPAIRER-C David Cummins HOUSEHOLD APPLIANCE REPAIRER Work Phone: Start: 04-15-2022 Radiologic examinati on of knee Start: 10-07-2021 Radiologic examinati on of knee HOUSEHOLD APPLIANCE REPAIRER-C David Cummins HOUSEHOLD APPLIANCE REPAIRER Work Phone: Start: 09-10-2021 Plain chest X-ray HOUSEHOLD APPLIANCE REPAIRER-C David Cummins HOUSEHOLD APPLIANCE REPAIRER Work Phone: Start: 08-14-2021 SARS-CoV-2 & FLU Ant igen (Rapid) HOUSEHOLD APPLIANCE REPAIRER-C David Cummins HOUSEHOLD APPLIANCE REPAIRER Work Phone: Start: 08-14-2021 Plain chest X-ray HOUSEHOLD APPLIANCE REPAIRER-C David Cummins HOUSEHOLD APPLIANCE REPAIRER Work Phone: Start: 08-07-2021 Bacteria identified in Blood by Culture HOUSEHOLD APPLIANCE REPAIRER-C David Cummins HOUSEHOLD APPLIANCE REPAIRER Work Phone: Start: 08-06-2021 Plain chest X-ray HOUSEHOLD APPLIANCE REPAIRER-C David Cummins HOUSEHOLD APPLIANCE REPAIRER Work Phone: Start: 08-05-2021 Investigation of tra nsfusion reaction HOUSEHOLD APPLIANCE REPAIRER-C David Cummins HOUSEHOLD APPLIANCE REPAIRER Work Phone: Start: 08-05-2021 Respiratory microbia l culture HOUSEHOLD APPLIANCE REPAIRER-C David Cummins HOUSEHOLD APPLIANCE REPAIRER Work Phone: Start: 08-04-2021 CT angiography of ch est with contrast Start: 08-04-2021 End: 08-04-2021 Legionella pneumophila antigen assay Start: 08-04-2021 Respiratory Panel (PCR) Start: 08-04-2021 Streptococcus pneumo niae Antigen (M Start: 08-04-2021 Plain chest X-ray Start: 07-29-2021 Plain chest X-ray Start: 04-11-2017 Nerve conduction study DAVID CUMMINS LOOM BLOWER - ELECTRICAL AUTOMATION ENGINEER Start: 03-18-2016 Doppler ultrasonogra phy of vein DAVID CUMMINS LOOM BLOWER - ELECTRICAL AUTOMATION ENGINEER Bacteria identified in Blood by Culture HOUSEHOLD APPLIANCE REPAIRER-C David Cummins HOUSEHOLD APPLIANCE REPAIRER Work Phone: Investigation of tra nsfusion reaction HOUSEHOLD APPLIANCE REPAIRER-C David Cummins HOUSEHOLD APPLIANCE REPAIRER Work Phone: Legionella pneumophi la antigen assay HOUSEHOLD APPLIANCE REPAIRER-C David Cummins HOUSEHOLD APPLIANCE REPAIRER Work Phone: Respiratory microbia l culture HOUSEHOLD APPLIANCE REPAIRER-C David Cummins HOUSEHOLD APPLIANCE REPAIRER Work Phone: SARS-CoV-2 & FLU Ant igen (Rapid) HOUSEHOLD APPLIANCE REPAIRER-C David Cummins HOUSEHOLD APPLIANCE REPAIRER Work Phone: Streptococcus pneumo niae Antigen (M HOUSEHOLD APPLIANCE REPAIRER-C David Cummins HOUSEHOLD APPLIANCE REPAIRER Work Phone: Plan of Treatment Date Care Activity Detail Author Start: 07-12-2022 Patient discharge [facility] [place] Start: 07-12-2022 Referral to occupational therapist [facility] [place] Start: 07-11-2022 Continuous pulse oximetry [facility] Start: 07-11-2022 Dual pressure spontaneous ventilation support [facility] [place] Start: 07-11-2022 Following clinical pathway protocol [facility] [place] Start: 07-11-2022 Assessment of risk of venous thromboembolism [facility] [place] Start: 07-11-2022 Cardiac monitoring [facility] [place] Start: 07-11-2022 Care regimes management [facility] Start: 07-11-2022 Catheterization of vein [facility] Start: 07-11-2022 Elevation of head of bed [facility] Start: 07-11-2022 Exercises [facility] [place] Start: 07-11-2022 Implementation of planned interventions [facility] [place] Start: 07-11-2022 Insertion of catheter into peripheral vein [facility] [place] Start: 07-11-2022 Measuring intake and output [facility] Start: 07-11-2022 Notification of physician [facility] Start: 07-11-2022 Oxygen therapy [facility] [place] Start: 07-11-2022 Patient referral to dietitian [facility] [place] Start: 07-11-2022 Providing care according to standard [facility] [place] Start: 07-11-2022 Provision of activity privileges [facility] [place] Start: 07-11-2022 Referral to service [facility] [place] Start: 07-11-2022 Tobacco use cessation education [facility] [place] Start: 07-11-2022 [facility] [place] Start: 07-11-2022 Verification routine [facility] [place] Start: 07-11-2022 Admission procedure [facility] [place] Start: 07-11-2022 Oxygen therapy [facility] [place] Start: 07-11-2022 [facility] [place] Start: 09-13-2021 Bacteria identified in Sputum by Culture [facility] [place] Work Phone: Start: 08-10-2021 Patient discharge [facility] [place] Work Phone: Start: 08-09-2021 Contact precautions [facility] [place] Work Phone: Start: 08-07-2021 Bacteria identified in Blood by Culture Blood Culture [facility] [place] Work Phone: Start: 08-07-2021 Consultation [facility] [place] Work Phone: Start: 08-07-2021 [facility] [place] Work Phone: Start: 08-07-2021 [facility] [place] Work Phone: Start: 08-06-2021 Consultation [facility] [place] Work Phone: Start: 08-05-2021 Incentive spirometry [facility] [place] Work Phone: Start: 08-05-2021 Physiotherapy of chest [facility] [place] Work Phone: Start: 08-05-2021 Methicillin resistant Staphylococcus aureus screening test [facility] [place] Work Phone: Start: 08-05-2021 Continuous positive airway pressure ventilation treatment [facility] [place] Work Phone: Start: 08-04-2021 Application of intermittent pneumatic compression device [facility] [place] Work Phone: Start: 08-04-2021 Assessment of risk of venous thromboembolism [facility] [place] Work Phone: Start: 08-04-2021 Care regimes management [facility] Work Phone: Start: 08-04-2021 Fall prevention [facility] [place] Work Phone: Start: 08-04-2021 Incentive spirometry [facility] [place] Work Phone: Start: 08-04-2021 Inhalation therapy procedure [facility] [place] Work Phone: Start: 08-04-2021 Insertion of catheter into peripheral vein [facility] [place] Work Phone: Start: 08-04-2021 Introduction of urinary catheter [facility] [place] Work Phone: Start: 08-04-2021 Measuring intake and output [facility] Work Phone: Start: 08-04-2021 Oxygen therapy [facility] [place] Work Phone: Start: 08-04-2021 Providing care according to standard [facility] [place] Work Phone: Start: 08-04-2021 Provision of activity privileges [facility] [place] Work Phone: Start: 08-04-2021 Referral to service [facility] [place] Work Phone: Start: 08-04-2021 [facility] [place] Work Phone: Start: 08-04-2021 Following clinical pathway protocol [facility] [place] Work Phone: Start: 08-04-2021 Admission procedure [facility] [place] Work Phone: Start: 08-04-2021 Bacteria identified in Blood by Culture Blood Culture [facility] [place] Work Phone: Cardiac event recording [facility] Patient Education Diabetes: Meal Planning [facility] [place] Work Phone: Patient referral [facility] Work Phone: Respiratory microbia l culture Respiratory Culture [facility] [place] Work Phone: Payers Date Payer Category Payer Self-pay [id number] 2022 Medicare [id number] 2020 Medicare [id number] 2020 Private Health Insurance [id number] 1970 Unknown [id number] 2.16.8 [id number] 1969 Unknown [id number] Unknown [id number] .[id number] [id number] 1969 Unknown [id number] .. [id number] 1969 Unknown [id number] 2.16. [id number] 1969 Unknown [id number] 2.16. [id number] 1969 Unknown [id number] 1969 Unknown [id number] .16.8 [id number] 1969 Unknown [id number] .[id number] [id number] Unknown [id number] 2.16.8 [id number] Unknown [id number] 2.16.8 [id number] Unknown [id number] 2.16.8 [id number] Unknown [id number] 2.16.8 [id number] Social History Date Type Detail Facility Start: 08-04-2021 End: 07-30-2022 Tobacco smoking status NHIS Unknown if ever smoked [facility] [place] Start: 1970 Sex Assigned At Male A [facility] Start: 10-26-2018 End: 07-30-2022 Tobacco smoking status Ex-smoker (finding) [facility] Comment on above: No smoke exposure Start: 07-11-2022 Cigarettes [facility] Sexual Orientation [facility] Start: 09-12-2018 Sex Male (finding) [facility] Medical Equipment Procedure Code Equipment Code Equipment [...] 3, # 1 EA, 3 Refill(s), Pharmacy: [facility], DM type 2, goal HbA1... Start: [...] 3, # 1 EA, 3 Refill(s), Pharmacy: [facility], DM type 2, goal HbA1c [...] 3, # 1 EA, 3 Refill(s), Pharmacy: [facility], DM type 2, goal HbA1c < 7.5%, 173, cm, 07/25/22 13:56:00 EDT, Height, 179.6, kg, 07/25/22 13:56:00 EDT, Dosing Weight Start: 08-04-2022 See Instructions , 1 bottle of 100, # 1 EA, 11 Refill(s), Pharmacy: [facility], 170, cm, 04/13/23 13:42:00 EST, Height, [...] 3, # 1 EA, 3 Refill(s), Pharmacy: [facility], DM type 2, goal HbA1c < 7.5%, 168, cm, 07/07/23 9:06:00 EDT, Height, 157.3, kg, 07/07/23 9:06:00 EDT, Dosing Weight Start: 07-18-2023 See Instructions , 1 bottle of 100, # 1 EA, 11 Refill(s), Pharmacy: [facility], 170, cm, 04/13/23 13:42:00 EST, Height, [...] 3, # 1 EA, 3 Refill(s), Pharmacy: [facility], DM type 2, goal HbA1c < 7.5%, 168, cm, 07/07/23 9:06:00 EDT, Height, 157.3, kg, 07/07/23 9:06:00 EDT, Dosing Weight Start: 07-18-2023 See Instructions , 1 bottle of 100, # 1 EA, 11 Refill(s), Pharmacy: [facility], 169, cm, 05/17/24 10:17:00 EST, Height, 154.2, kg, 05/17/24 10:17:00 EST, Dosing Weight Start: 05-29-2024 See Instructions , qs 1 month supply, # 1 EA, 11 Refill(s), 158.3 Start: 05-21-2020 See Instructions , 31G/8mm pen needles, four pen needles per day secondary to the quick acting & bolus insulins. Dx: E11.9, # 400 EA, 3 Refill(s), Pharmacy: [facility], DM type 2, goal HbA1c < 7.5%, 169, cm, 05/17/24 10:17:00 EST, Height, 154.4, kg, 06/03/24 14:04:00 EDT, Dosing Weight Start: 06-12-2024 See Instructions , 1 bottle of 100, # 1 EA, 11 Refill(s), Pharmacy: [facility], 169, cm, 05/17/24 10:17:00 EST, Height, 154.2, kg, 05/17/24 10:17:00 EST, Dosing Weight Start: 05-29-2024 See Instructions , qs 1 month supply, # 1 EA, 11 Refill(s), 158.3 Start: 05-21-2020 See Instructions , 31G/8mm pen needles, four pen needles per day secondary to the quick acting & bolus insulins. Dx: E11.9, # 400 EA, 3 Refill(s), Pharmacy: [facility], DM type 2, goal HbA1c < 7.5%, 169, cm, 05/17/24 10:17:00 EST, Height, 154.4, kg, 06/03/24 14:04:00 EDT, Dosing Weight Start: 06-12-2024 Goals Date Patient Goal Desired Activity /State Functional Status Date Assessment Result Facility 12-08-2022 Functional Status Repositions self [facility] 12-08-2022 Functional Status Door open, Room check performed [facility] 12-08-2022 Functional Status [facility] 12-08-2022 Functional Status [facility] 12-08-2022 Functional Status 3am-7am [facility] 12-07-2022 Functional Status 100 [facility] 12-07-2022 Functional Status [facility] 12-07-2022 Functional Status 100 [facility] 12-07-2022 Functional Status Done [facility] 12-07-2022 Functional Status [facility] 12-06-2022 Functional Status Independent [facility] 12-06-2022 Functional Status Ambulation Ambulation i n Room [facility] 12-06-2022 Functional Status [facility] 12-06-2022 Functional Status [facility] 12-06-2022 Functional Status [facility] 12-05-2022 Functional Status [facility] 12-05-2022 Functional Status Single level home [facility] 12-05-2022 Functional Status [facility] 12-04-2022 Functional Status Sequential Com pression Device bilateral knee high removed/off [facility] 12-04-2022 Functional Status Sensory Deficits None A [facility] 12-04-2022 Functional Status Ambulation in [facility][note 3] 07-12-2022 Functional status Ambulates;Up ad gurwinder [facility] Work Phone: 08-10-2021 Functional status Up ad gurwinder;Chair [facility] Work Phone: 08-05-2021 Functional status Activity Abili ty Standby Assist;With Assist of 1 [facility] Work Phone: Mental Status Date Assessment Result Facility 12-08-2022 Mental Status Orientation Oriented x 4 [facility] 12-07-2022 Mental Status [facility] 12-07-2022 Mental Status [facility] 12-06-2022 Mental Status [facility] 12-04-2022 Mental Status Orientation Oriented x 4 [facility] 07-30-2022 Cognitive function Level Of Cons ciousness Awake;Alert;Appropriate [facility] Work Phone: 07-12-2022 Cognitive function Voice/Name [facility] Work Phone: 07-11-2022 Cognitive function Patient Orien tation Person;Place;Time [facility] Work Phone: 08-10-2021 Cognitive function Voice/Name [facility] Work Phone: 08-05-2021 Cognitive function Voice/Name [facility] Work Phone: Clinical Notes 07-11-2022 to [...] a prescription antihistamine, oral diphenhydramine is an nbyn-jpt-hnvrejf antihistamine available at pharmacies and grocery stores. [...] or colored drainage from the affected area 9941-5593 [employer]. [address] [place] [address], [place] [address]. All rights reserved. This information is not intended as a substitute for professional medical care. Always follow your healthcare professional's instructions. Follow Up Care 08/14/2024 18:03:25 With:BOOGIE ZALDIVAR Address: [address] [place] [phone] When:2-4 days [facility] 08-14-2024 Note Discharge Instructions Thank you for allowing [facility] to assist you with your healthcare needs. The following is important discharge information regarding your hospital visit. Diagnosis from Today's Visit Allergic reaction to drug What to Do Next Instructions from Your Care Team No qualifying data available. Post Acute Orders No qualifying data available. You Need to Schedule the Following Appointments Follow Up with BOOGIE ZALDIVAR When:Within 2-4 days Where:[address] [place] [phone] Allergies Bee Stings Unknown Byetta Prefilled Pen [place] sick SMZ-TMP DS Rash amoxicillin amoxicillin metFORMIN [...] pharmacies. Medication Leaflets doxycycline (oral/injection) (DOX susan LFOREZMarco A laura) Acticlate, Adoxa, Alodox, Avidoxy, Doryx, Lymepak, Mondoxyne [...] or life-threatening conditions such as anthrax or Torreon spotted fever. The benefit of treating a [...] may report side effects to FDA at 8-907-HBW-9435. What other drugs will affect doxycycline? Sometimes it is not safe to use certain medicines at the same time. Some drugs can affect your blood levels of other drugs you use, which may increase side effects or make the medicines less effective. Other drugs may affect doxycycline, including prescription and koof-qzn-lmnkwht medicines, vitamins, and herbal products. Tell your [...] to ensure that the information provided by [employer] ('[employer]') is accurate, up-to-date, and complete, but no guarantee is made to that effect. Drug information contained herein may be time sensitive. [employer] information has been compiled for use by healthcare practitioners and consumers in the [place] and therefore [employer] does not warrant that uses outside of the [place] are appropriate, unless specifically indicated otherwise. webmes drug information does not endorse drugs, diagnose patients or recommend therapy. webmes drug information is an informational resource designed [...] effective or appropriate for any given patient. [facility] does not assume any responsibility for any aspect of healthcare administered with the aid of information [facility] provides. The information contained herein is not intended to cover all possible uses, directions, precautions, warnings, drug interactions, allergic reactions, or adverse effects. If you have questions about the drugs you are taking, check with your doctor, nurse or pharmacist. Copyright 4673-3780 [employer]. Version: 25.03. Revision Date: 07/02/2024. prednisone (PRED ni sonmarco a) Essie What is the most important information I [...] may report side effects to FDA at 9-817-WPU-7075. What other drugs will affect prednisone? Sometimes [...] may affect prednisone. This includes prescription and qsbk-mob-ftgmluo medicines, vitamins, and herbal products. Not all [...] to ensure that the information provided by [employer]') is accurate, up-to-date, and complete, but no guarantee is made to that effect. Drug information contained herein may be time sensitive. [employer] information has been compiled for use by healthcare practitioners and consumers in the [place] and therefore [employer] does not warrant that uses outside of the [place] are appropriate, unless specifically indicated otherwise. webmes drug information does not endorse drugs, diagnose patients or recommend therapy. webmes drug information is an informational resource designed [...] effective or appropriate for any given patient. [employer] does not assume any responsibility for any aspect of healthcare administered with the aid of information [employer] provides. The information contained herein is not intended to cover all possible uses, directions, precautions, warnings, drug interactions, allergic reactions, or adverse effects. If you have questions about the drugs you are taking, check with your doctor, nurse or pharmacist. Copyright 2946-3778 [employer]. Version: 10. Revision Date: 06/14/2018. Education Materials Medicine Reaction: [...] a prescription antihistamine, oral diphenhydramine is an utac-mvn-lxghnyy antihistamine available at pharmacies and grocery stores. [...] or colored drainage from the affected area 4401-3391 [employer]. [address] [place] [address]. All rights reserved. This information is not intended as a substitute for professional medical care. Always follow your healthcare professional's instructions. Additional Information VACCINATE! IT SAVES LIVES! Members of the community who have not yet received the COVID-19 vaccine and would like to receive it can visit one of [facility] vaccine clinics. There are many vaccine clinic locations within the [facility]. For locations and available times, please visit www.[email or web address].[place]. gov/. It is important to note that some COVID mobile vaccine clinics are held outdoors and may be canceled in rainy or stormy conditions. To learn more about pediatric vaccinations (ages 5-11), we invite you to visit the [facility] webpage. https://www.[facility].org/p ages/5941-Qonwd-Gqgxfmxhciz-Freq dznfud-Vqdld-Rbforrpgu.html To learn more about the COVID-19 vaccine, we invite you to visit the CDC website for a list of frequently asked questions. https://www.cdc.gov/coronavirus/ 2019-ncov/vaccines/faq.html [facility] Patient Portal Access Instructions: Stay connected with your healthcare team and access your personal medical information anytime with the [facility] Patient Portal. If you would like a full copy of your medical records please contact the [facility] Medical Records Department Monday through Monday between 8a.m. and 4:30p.m. Please follow the directions below to access the portal: 1.Access the email account you provided upon registration to the [facility].2.Look for an invitation email from [facility].3.Open the email and access the invitation link: Accept Invitation to [facility]4.Fill in the required hudson to create your account. Sign into [email or web address] with your username and password that you [...] you will allow to register on the [facility] Patient Portal for access to your information. You can also access the [facility] Patient Portal on the Bee Shield. Simply click on "Health Records" under "Health Data" and then click on the [employer]ino logo. HOW TO SAFELY DISPOSE OF PRESCRIPTION [...] Call your local pharmacy or go to [email or web address] to find one close to you.3.Make use of household items: Use cat litter or old coffee grounds to dispose medications if other options are not available. Mix your drugs with these household products, seal them in an airtight container and throw it into the garbage. Call [facility]: [phone] to be sure your drugs can be [...] aware that I should contact my doctor. Patient/Editor At Large Signature: Date/Time: Relationship to Patient: Witness Name/Signature: Date/Time: [facility] 12-13-2022 Note . MICRO - Microbiology [...] Date/Time/Personnel: 12/10/2022 11:10 EDT Light Staphylococcus aureus MLII to follow Light normal skin eric present. [...] Locations *1: This test was performed at: [address], [facility] , [facility] ([place]) 12-09-2022 Note . MICRO - Microbiology PROCEDURE: [...] Locations *1: This test was performed at: [address], [address] [place] [address] ([place]) 12-09-2022 Note . 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.4 - ICD-10-CM) [...] BID, # 60 tab(s), 0 Refill(s), Pharmacy: [facility], HTN, goal below 140/90, 167.6, cm, [...] tab(s), 0 Refill(s), 12/11/22 10:52:00 EDT, Pharmacy: [facility], Neck pain, 167.6, cm, 12/04/22 17:22:00 [...] Daily, # 120 mL, 0 Refill(s), Pharmacy: [facility], 167.6, cm, 12/04/22 17:22:00 EDT, Height, kg, 12/04/22 17:22:00 EDT, Dosing Weight Ordered: clindamycin 300 mg oral capsule,Dose : 300 mg = 1 cap(s), Oral, q6h, X 10 day(s), # 40 cap(s), 0 Refill(s), 12/18/22 11:14:00 EDT, Pharmacy: [facility], 167.6, cm, 12/04/22 17:22:00 EDT, Height, 152.6, kg, 12/04/22 17:22:00 EDT, Dosing Weight Ordered: mupirocin 2% topical cream,Apply 1 merlene, Topical, Daily, X 10 day(s), # 15 gram(s), 0 Refill(s), Pharmacy: [facility], 167.6, cm, 12/04/22 17:22:00 EDT, Height, 152.6, kg, 12/04/22 17:22:00 EDT, Dosing Weight End of Orders Hospital Course Patient is a 52-year-old male with past medical history significant for morbid obesity, obstructive sleep apnea with CPAP at night, GERD, tobacco use, TIA, hypertension, type 2 diabetes mellitus (on insulin at home), tobacco use. . He originally presented to [facility] emergency department on 12/04/2022 with complaints of posterior neck abscess and cellulitis. He was evaluated by his primary care physician and placed on doxycycline on 12/01/2022, symptoms did not improve and the patient presented to the ER. Patient was then transferred to the [facility] for further evaluation and ENT [...] to be elevated, encouraged to follow-up with tanbark peeler. Patient encouraged to follow-up with his primary [...] Allergies Bee Stings (Unknown) Byetta Prefilled Pen ([place] sick) SMZ-TMP DS (Rash) amoxicillin (amoxicillin) metFORMIN [...] rash. Warm, Dry, Intact HEENT: Posterior head: Wheeler, slight edema, no drainage, open to air [...] to be elevated -Please follow-up with your tanbark peeler Thanks for allowing us to participate in [...] the office for an appointment. Where: [address] [place] [address]- Follow Up with DAVID CUMMINS APRN - ELECTRICAL AUTOMATION ENGINEER When Within 1-2 days Why: Please call the office to schedule a follow up appointment. Where: [address] [place] [address]- Follow Up Appointments No qualifying data available. [...] by AUSTEN CRUM on 12/08/2022 01:55 PM [facility] 12-08-2022 Hospital Discharge instructions Patient Education 12/08/2022 [...] Follow these instructions at home: Medicines Take nxbx-soz-iargfci and prescription medicines only as told by [...] pain is severe. ?Do not take other jvgc-pml-ffsxtmb pain medicines in addition to prescription pain [...] grains, and fresh fruits and vegetables. ?Take kpvo-xsk-hylohhz or prescription medicines. ?Limit foods that are [...] or you are no longer ill. Take vefx-hwb-epvjhxu and prescription medicines only as told by [...] 07/22/2019 Document Reviewed: 07/22/2019 Elsevier Patient Education 2019 Elsevier Inc. 12/08/2022 11:42:25 Diabetes Basics Diabetes Basics Diabetes [...] Do I need to meet with a market survey representative? What equipment will I need to care for myself at home? What diabetes medicines do I need? When should I take them? How often do I need to check my blood sugar? What number can I call if I have questions? When is my next doctor's visit? Where can I find a support group for people with diabetes? Where to find more information [place] [employer]: www.diabetes.org [place] Association of Diabetes Educators: www.diabeteseducator.org/patient -resources Contact [...] 04/26/2019 Document Reviewed: 06/08/2018 Elsevier Patient Education 2019 [employer]. Follow Up Care 12/04/2022 14:32:51 With:LUIS DANIEL BURROWS MD, [facility], [facility] Address: [address] [place] [address] [address] [facility] [address] [place] [address]- When:12/15/2022 Comments:Please call the office for an appointment. With:DAVID CUMMINS APRN, CNP Address: [address] [place] [address]- When:1-2 days Comments:Please call the office to schedule a follow up appointment. [facility] 12-08-2022 Note Discharge Instructions Thank you for allowing [facility] to assist you with your healthcare needs. The following is important discharge information regarding your hospital visit. Your Care Team DAVID CUMMINS APRN, CNP Your Diagnosis DM type 2, goal HbA1c [...] to be elevated -Please follow-up with your tanbark peeler Thanks for allowing us to participate in your care! Scheduled Follow-Up Appointments Appointment Type When With Where Contact InformationPC OV Follow Up 01/26/2023 02:00 PM EST DAVID CUMMINS APRN - ELECTRICAL AUTOMATION ENGINEER [facility] Follow Up Appointments Follow Up with LUIS DANIEL BURROWS MD, [facility], [facility] Re[facility]ive When In 8 days 12/15/2022 EDT Why: Please call the office for an appointment. Where: [address] [place] [address]- Follow Up with DAVID CUMMINS APRN - MONTY When Within 1-2 days Why: Please call the office to schedule a follow up appointment. Where: [address] [place] [address]- The Following Activity and Diet Have Been [...] Allergies Bee Stings (Unknown) Byetta Prefilled Pen ([place] sick) SMZ-TMP DS (Rash) amoxicillin (amoxicillin) metFORMIN [...] Every day Duration: 5 Days Pickup at [facility] New clindamycin (clindamycin 300 mg oral capsule) 1 cap by mouth Every 6 hours Duration: 10 Days Pickup at [facility] New mupirocin topical (mupirocin 2% topical cream) 1 application Topical Every day Duration: 10 Days Pickup at [facility] New oxyCODONE (oxyCODONE 5 mg oral tablet ( IMMEDIATE release )) 1 tab(s) by mouth Every 6 hours as needed for Pain, scale 4-10 Neck pain Duration: 3 Days Pickup at [facility] Changed amLODIPine (Norvasc 5 mg oral tablet) 1 tab(s) by mouth Two (2) times a day HTN, goal below 140/90 Duration: 30 Days Pickup at [facility] Changed insulin aspart (Novolog) (NovoLOG FlexPen [...] goal <100 Duration: 90 Days Pharmacy Information [facility]: [address] [place] [phone] What How Much When Why Comments Stop [...] Follow these instructions at home: Medicines Take liwe-lsi-glqitmv and prescription medicines only as told by [...] is severe. ? Do not take other iyjs-ttt-tgjpxfh pain medicines in addition to prescription pain [...] and fresh fruits and vegetables. ? Take jwaz-vwu-usjayvp or prescription medicines. ? Limit foods that [...] or you are no longer ill. Take cmlr-ixc-eyiqqmn and prescription medicines only as told by [...] 03/20/2016 Document Revised: 07/22/2019 Document Reviewed: 07/22/2019 [employer] Patient Education 2020 [employer] Diabetes Basics Diabetes (diabetes mellitus) is [...] Do I need to meet with a market survey representative? What equipment will I need to care for myself at home? What diabetes medicines do I need? When should I take them? How often do I need to check my blood sugar? What number can I call if I have questions? When is my next doctor's visit? Where can I find a support group for people with diabetes? Where to find more information [place] [employer]: www.diabetes.org [place] [employer] of Diabetes Educators: www.diabeteseducator.org/patient -resources Contact [...] Document Reviewed: 06/08/2018 Elsevier Patient Education 2020 [employer]. Additional Information VACCINATE! IT SAVES LIVES! Members of the community who have not yet received the COVID-19 vaccine and would like to receive it can visit one of [facility] vaccine clinics. There are many vaccine clinic locations within the [facility]. For locations and available times, please visit https://gettheshot.[email or web address].o [place].gov/. It is important to note that some COVID mobile vaccine clinics are held outdoors and may be canceled in rainy or stormy conditions. To learn more about pediatric vaccinations (ages 5-11), we invite you to visit the [facility] webpage. https://www.Euclids.org/p ages/5100-Euytu-Veunmakxxjg-Freq ggqbtt-Jouvs-Viriyqbew.html To learn more about the COVID-19 vaccine, we invite you to visit the CDC website for a list of frequently asked questions.https://www.cdc.gov/co ronavirus/2019-ncov/vaccines/faq .html [facility] Patient Portal Access Instructions: Stay connected with your healthcare team and access your personal medical information anytime with the [facility] Patient Portal. Please follow the directions below to create your [facility] account: 1.Access the email account you provided upon registration to the hospital/physician office.2.Look for an invitation email from [facility].3.Open the email and access the invitation link: Accept Invitation to [facility].4.Fill in the required hudson to create your account. To access your account, visit [email or web address]. Click the blue button labeled "Access Patient Portal" and then log in with the username [...] you will allow to register on the [facility] Patient Portal for access to your information. You can also access the [facility] Patient Portal on the [facility] merlene. Simply click on "Patient Portal" and then log into your account. If you would like to receive a full copy of your medical records, please contact the [facility] Medical Records Department by calling [phone], Monday through Monday between 8 a.m. and [...] Call your local pharmacy or go to http://bit.Lanx/8P2Ey3v to find one close to you.3.Make use of household items: Use cat litter or old coffee grounds to dispose medications if other options are not available. Mix your drugs with these household products, seal them in an airtight container and throw it into the garbage. Call [facility]: [phone] to be sure your drugs can be [...] been reviewed and explained to me and IPRAVEEN WILLIAM D understand my current condition and have read and understand these discharge instructions. I have received a written copy of the plan/instructions. If I have questions, I am aware that I should contact my doctor. Patient/Editor At Large Signature: Date/Time: Relationship to Patient: Witness Name/Signature: Date/Time: [facility] 12-07-2022 History and physical note Date of [...] difficult. 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 Lung cancer: Mother. Immunizations No qualifying data available. Code Status Code Status - Ordered -- 12/04/22 18:19:00 EDT, Full Code, Constant Order Digitally Signed by LUIS DANIEL BURROWS MD on 12/07/2022 07:09 PM [facility] 12-07-2022 Note Date of Service 12/07/2022 Chief Complaint Posterior neck abscess Subjective Patient is a 52 year old male with a past medical history significant for morbid obesity, obstructive sleep apnea treated with BiPAP at night, GERD, tobacco use, TIA, hypertension, type 2 diabetes mellitus on insulin at home, and tobacco use. Patient originally presented to [facility] emergency department on December 04, 2022 with complaints of posterior neck abscess and cellulitis. Patient had been evaluated by his primary care physician and placed on doxycycline as outpatient on 12/01/2022. Symptoms did not improve and patient then presented to the emergency department for further evaluation. Patient was found to have abscess with cellulitis and transferred to [facility] for further evaluation. Patient has been evaluated [...] by SHASTA MONTESINOS on 12/07/2022 02:01 PM [facility] 12-07-2022 Note Date of Service 12/07/2022 Chief Complaint Posterior neck abscess Subjective Patient is a 52 year old male with a past medical history significant for morbid obesity, obstructive sleep apnea treated with BiPAP at night, GERD, tobacco use, TIA, hypertension, type 2 diabetes mellitus on insulin at home, and tobacco use. Patient originally presented to [facility] emergency department on December 04, 2022 with complaints of posterior neck abscess and cellulitis. Patient had been evaluated by his primary care physician and placed on doxycycline as outpatient on 12/01/2022. Symptoms did not improve and patient then presented to the emergency department for further evaluation. Patient was found to have abscess with cellulitis and transferred to [facility] for further evaluation. Patient has been evaluated [...] Dr. Velazquez. Digitally Signed by SHASTA MONTESINOS APRN-MONTY on 12/07/2022 02:01 PM [facility] 12-07-2022 Evaluation + Plan note Extrac ross [...] difficult. This would have the benefit of "venting" the area to allow for drainage rather [...] ordered Hyperglycemia: Blood sugar of 321 at [facility], did receive insulin regular 8 units IV, blood sugar in 200s on arrival at [facility] Type 2 diabetes mellitus: Insulin lispro sliding [...] subcutaneous twice daily Note was written using [employer] vat overhauler software. Some of the meaning of the words and sentences might have changed during vat overhauler, if there was ever some confusion about the meaning of some sentences, please do not hesitate to contact me. Future Appointments Appointment Date:01/26/2023 02:00:00 PM Scheduled Provider:DAVID CUMMINS APRN, CNP Location:[facility] Appointment Type: OV Follow Up Future Scheduled Tests Laboratory* [...] Radiology* XR Knee 3 Views Left 04/15/22 [facility] 09-20-2023 Otolaryngology Progress note Date of Service [...] AM Digitally Signed by STEPHEN MILLIGAN MD [facility] [id number] Note Date of Service 12/06/22 Chief Complaint Neck pain Subjective Patient is a 52 year old male with a past medical history significant for morbid obesity, obstructive sleep apnea treated with BiPAP at night, GERD, tobacco use, TIA, hypertension, type 2 diabetes mellitus on insulin at home, and tobacco use. Patient originally presented to [facility] emergency department on December 04, 2022 with complaints of posterior neck abscess and cellulitis. Patient had been evaluated by his primary care physician and placed on doxycycline as outpatient on 12/01/2022. Symptoms did not improve and patient then presented to the emergency department for further evaluation. Patient was found to have abscess with cellulitis and transferred to [facility] f or further evaluation. Patient has been [...] 97(DEC 06 03:03) 97(DEC 06 03:03) H 114(DEC 05 22:50) Resp Rate 18(DEC 06 11:08) 18(DEC 05 15:17) 20(DEC 05 22:50) SBP 113(SEP 19 11:08) 100(SEP 19 03:03) H 173(SEP 18 22:50) DBP C 50(SEP 19 11:08) C 49(SEP 19 03:03) H 92(NOV 18 20:02) Physical Exam General: Morbid Obese. [...] by BRENDAN SANCHEZ on 12/06/2022 01:57 PM [facility] [id number] Note Date of Service 12/06/22 Chief Complaint Neck pain Subjective Patient is a 52 year old male with a past medical history significant for morbid obesity, obstructive sleep apnea treated with BiPAP at night, GERD, tobacco use, TIA, hypertension, type 2 diabetes mellitus on insulin at home, and tobacco use. Patient originally presented to [facility] emergency department on December 04, 2022 with complaints of posterior neck abscess and cellulitis. Patient had been evaluated by his primary care physician and placed on doxycycline as outpatient on 12/01/2022. Symptoms did not improve and patient then presented to the emergency department for further evaluation. Patient was found to have abscess with cellulitis and transferred to [facility] f or further evaluation. Patient has been [...] 37.0(DEC 06 11:08) 37.0(DEC 06 11:08) H 37.8(NOV 18 15:17) Heart Rate 97(DEC 06 03:03) 97(DEC 06 03:03) H 114(SEP 18 22:50) Resp Rate 18(DEC 06 11:08) 18(SEP 18 15:17) 20(SEP 18 22:50) SBP 113(DEC 06 11:08) 100(DEC 06 03:03) H 173(SEP 18 22:50) DBP C 50(DEC 06 11:08) C 49(DEC 06 03:03) H 92(SEP 18 20:02) Physical Exam [...] by BRENDAN SANCHEZ on 12/06/2022 01:57 PM [facility] [id number] Otolaryngology Progress note Date of Service 12/06/2022 [...] AM Digitally Signed by STEPHEN MILLIGAN MD [facility] [id number] Nurse Progress note Chlorhexidine bath done. Bed linen changed. Digitally Signed by Mauro Matthews RN on 12/05/2022 07:58 PM [facility] [id number] Note Date of Service 12/05/22 Chief Complaint Neck abscess Subjective Patient is a 52 year old male with a past medical history significant for morbid obesity, obstructive sleep apnea treated with BiPAP at night, GERD, tobacco use, TIA, hypertension, type 2 diabetes mellitus on insulin at home, and tobacco use. Patient originally presented to [facility] emergency department on December 04, 2022 with complaints of posterior neck abscess and cellulitis. Patient had been evaluated by his primary care physician and placed on doxycycline as outpatient on 12/01/2022. Symptoms did not improve and patient then presented to the emergency department for further evaluation. Patient was found to have abscess with cellulitis and transferred to [facility] f or further evaluation. Patient has been evaluated by ENT. Per ENT there is no abscess formation andrecommend continuing IV antibiotics. Patient resting up to side of bed. No family at bedside. Patient's friend is currently on FaceTime during the examination. Patient states that posterior neck swelling has significantly improved. Patient states "I am feeling much better". Patient has any shortness of breath, chest [...] 24 hrs)__ Last Charted Minimum Maximum Temp 36.8(SEP 18 10:42) 36.8(NOV 18 10:42) 37.2(NOV 17 17:06) Heart Rate 85(SEP 18 10:42) 85(SEP 18 10:42) 93(NOV 18 06:58) Resp Rate 18(NOV 18 10:42) 18(NOV 17 17:06) 20(NOV 17 18:35) SBP 129(SEP 18 10:42) 129(SEP 18 10:42) H 175(NOV 17 17:06) DBP L 56(SEP 18 10:42) L 56(SEP 18 10:42) C 105(SEP 17 17:32) Physical Exam General: No acute [...] by BRENDAN SANCHEZ on 12/05/2022 01:19 PM [facility] [id number] Note* Exam Date Time Procedure Performing Provider Status 12/05/22 1:23 PM VL Venous US/Doppler Both Legs(for DVT) Auth (Verified) [facility] 09-18-2023 Note Date of Service 12/05/22 Chief Complaint Neck abscess Subjective Patient is a 52 year old male with a past medical history significant for morbid obesity, obstructive sleep apnea treated with BiPAP at night, GERD, tobacco use, TIA, hypertension, type 2 diabetes mellitus on insulin at home, and tobacco use. Patient originally presented to [facility] emergency department on December 04, 2022 with complaints of posterior neck abscess and cellulitis. Patient had been evaluated by his primary care physician and placed on doxycycline as outpatient on 12/01/2022. Symptoms did not improve and patient then presented to the emergency department for further evaluation. Patient was found to have abscess with cellulitis and transferred to [facility] f or further evaluation. Patient has been evaluated by ENT. Per ENT there is no abscess formation andrecommend continuing IV antibiotics. Patient resting up to side of bed. No family at bedside. Patient's friend is currently on FaceTime during the examination. Patient states that posterior neck swelling has significantly improved. Patient states "I am feeling much better". Patient has any shortness of breath, chest [...] 24 hrs)__ Last Charted Minimum Maximum Temp 36.8(SEP 18 10:42) 36.8(SEP 18 10:42) 37.2(NOV 17 17:06) Heart Rate 85(SEP 18 10:42) 85(SEP 18 10:42) 93(SEP 18 06:58) Resp Rate 18(SEP 18 10:42) 18(SEP 17 17:06) 20(SEP 17 18:35) SBP 129(SEP 18 10:42) 129(SEP 18 10:42) H 175(SEP 17 17:06) DBP L 56(SEP 18 10:42) L 56(SEP 18 10:42) C 105(SEP 17 17:32) Physical Exam General: No acute [...] by BRENDAN SANCHEZ on 12/05/2022 01:19 PM [facility] [id number] Otolaryngology Consult note Date of Service 12/05/2022 Reason for Consultation neck abscesses History of Present Illness Mr. Velasco is a 52-year-old male with a past medical history of morbid obesity, NICHOLE, tobacco abuse,history of TIA, hypertension, type 2 diabetes on insulin, and GERD. He presented to [facility] yesterday with complaints of 1 week of worsening neck pain and swelling. He was transferred here to [place] yesterday due to no ENT coverage in [place]. He failed outpatient treatment with doxycycl ine. [...] 52-year-old morbidly obese diabetic male transferred from [facility] yesterday for diagnosisof neck cellulitis. 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:., 10/26/2018 Nutrition/Health Caffeine intake amount: none., 10/26/2018 [...] AM Digitally Signed by STEPHEN MILLIGAN MD [facility] [id number] NoteSINUS TACHYCARDIA RIGHT BUNDLE BRANCH BLOCK INFERIOR INFARCT, OLD Electronic Signature: SADIQ CHU MD 12/05/2022 17:15:57[facility] 09-17-2023 History and physical note Date of Service December 04, 2022 Chief Complaint Neck swelling/abscess History of Present Illness A 52 years old male with past medical history significant for morbid obesity, obstructive sleep apnea treated with BiPAP at night, GERD, tobacco use, TIA, hypertension, type 2 diabetes mellitus on insulin at home, tobacco use was transferred from [facility] with a concern for neck abscesses [...] high as 38.6 C. Labs done at [facility] showed white count of 17,200 with [...] ordered Hyperglycemia: Blood sugar of 321 at [facility], did receive insulin regular 8 units IV, blood sugar in 200s on arrival at [facility] Type 2 diabetes mellitus: Insulin lispro sliding [...] subcutaneous twice daily Note was written using [employer] vat overhauler software. 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 Lung cancer: Mother. Immunizations No qualifying data available. Code Status Code Status - Ordered -- 12/04/22 18:19:00 EDT, Full Code, Constant Order Digitally Signed by PHOEBE BROWN MD on 12/04/2022 06:36 PM [facility] [id number] Note ORIGINAL EXAMINATION: CT OF THE NECK [...] Sign Date: 12/04/2022 12:12:41 PM Ordering Provider: [facility]04-25-[address] Celis [facility] July 12, 2022 7:44am Note Date/Time July 12, 2022 7:4 5am [facility] Medical Records Department [address] [place] [address] Telemedicine Confirmation Receipt 07/12/22 MR#: [id number] Acct: [id number] Name: SEUN VELASCO Rep #:[id number] : 1970 51 From: Aspen Celis DO PCP: JAYDEN Smith tus:ADM ИРИНА [facility] has confirmed receipt of a request for visit. This document confirms receipt of the order initiating the consult. To find the results of the consultation, please view the patient's reports for the scanned Telemed Consult. [facility] Work Phone: 1(743) 320-432804-25-2023 History and physical note Author Dr. Cristina [facility] July 11, 2022 10:27pm Note Date/Time July 11, 2022 7:3 9pm [facility] Medical Records Department [address] [place] [address] H&P Exam - Hospitalist 07/11/221938 MR#: [id number] Acct: [id number] Name: SEUN VELASCO Rep #:[id number] : 1970 51 From: Ravin Cristina MD PCP: JAYDEN Smith tus:ADM ИРИНА Location: [place] [address] HPI - General General Date of Admission: [...] he had same symptomsbut that went away. [facility] Medical History Acute respiratory failure with hypoxia [...] Allergy Swelling Verified 07/11/22 14:47 Penicillins Allergy RASH/"LONG Verified 07/11/22 14:47 TIME TO WAKE ME UP" Family History Mother Lung cancer with associated [...] (Auto) 72.4 H, Lymph % (Auto) 20.3, Colbert % (Auto) 5.2, Eos % (Auto) 0.9, [...] SCDs ordered Charges/Coding Visit Charges Inpatient E&M: 66131 Init Hosp L3 07/11/222226 <Electronically signed by Ravin Cristina MD> Cosigner Signature (if applicable): CC: JAYDEN Cummins; Dr. Ravin Cristina MD~ Signed [facility] Work Phone: [phone]) 505-241504-24-[address] Hurley [facility] July 11, 2022 7:20pm Note Date/Time July 11, 2022 4:5 4pm [facility] Medical Records Department [address] [place] [address] Emergency Department Summary 07/11/22 MR#: [id number] Acct: [id number] Name: ESUN VELASCO Rep #:[id number] : 1970 51 From: Nelson Hurley MD [...] he does have a known history of "an enlarged heart." He also type 2 diabetes, highblood pressure, [...] was asleep is what he told me. [facility] Medical History Acute respiratory failure with hypoxia [...] Allergy Swelling Verified 07/11/22 14:47 Penicillins Allergy RASH/"LONG Verified 07/11/22 14:47 TIME TO WAKE ME UP" Family History Mother Lung cancer with associated [...] (Auto) 72.4 H Lymph % (Auto) 20.3 Colbert % (Auto) 5.2 Eos % (Auto) 0.9 [...] (Auto) Neut % (Auto) Lymph % (Auto) Colbert % (Auto) Eos % (Auto) Baso % [...] Negative Brain CT without contrast. Electronically Signed: Crason Fajardo DO at 18:02 EDT , ADDENDUM: [...] depression consistent with acute infarct or ischemia. [place] interval was normal. The QRS duration is long 140 ms. QTc is relatively normal at 457 ms. Management Discussion w/another healthcare provider: Hospitalist Discharge Plan Dx/Rx/DC Orders Clinical Impression: Brain TIA, Morbid obesity, History of diabetes mellitus, type II, History of hypertension, Hx of hypercholesterolemia Disposition Disposition: Acute Care Hospital [facility] What to do if you have Problems For any increased pain, shortness of breath, bleeding, nausea or vomiting, chestpain, or any unexpected problems, contact your Primary Care Provider. Call [facility] ([phone]) or report to the closest Emergency Room. Call 911 if necessary. 07/11/221919 <Electronically signed by Nelson Hurley MD> Cosigner Signature (if applicable): CC: HOUSEHOLD APPLIANCE REPAIRERRupa Cummins ~ Signed [facility] Work Phone: [phone] 237-790804-24-[address] Hurley [facility] July 11, 2022 7:20pm Note Date/Time July 11, 2022 4:5 4pm [facility] Medical Records Department [address] [place] [address] Emergency Department Summary 07/11/22 MR#: [id number] Acct: [id number] Name: SEUN VELASCO Rep #:[id number] : 1970 51 From: Nelson Hurley MD [...] he does have a known history of "an enlarged heart." He also type 2 diabetes, highblood pressure, [...] was asleep is what he told me. [facility] Medical History Acute respiratory failure with hypoxia [...] Allergy Swelling Verified 07/11/22 14:47 Penicillins Allergy RASH/"LONG Verified 07/11/22 14:47 TIME TO WAKE ME UP" Family History Mother Lung cancer with associated [...] (Auto) 72.4 H Lymph % (Auto) 20.3 Colbert % (Auto) 5.2 Eos % (Auto) 0.9 [...] (Auto) Neut % (Auto) Lymph % (Auto) Colbert % (Auto) Eos % (Auto) Baso % [...] 18:02 EDT Reading Location ID and State: [facility] / [place] Tel [phone], Service support , ADDENDUM: 07/11/22 1827 IMPRESSION: Negative Brain CT without contrast. N.B. : The above Results were Read Back by Carson Fajardo DO to Nelosn Hurley MD, and understanding confirmed on 07/11/2022 [...] depression consistent with acute infarct or ischemia. [place] interval was normal. The QRS duration is long 140 ms. QTc is relatively normal at 457 ms. Management Discussion w/another healthcare provider: Hospitalist Discharge Plan Dx/Rx/DC Orders Clinical Impression: Brain TIA, Morbid obesity, History of diabetes mellitus, type II, History of hypertension, Hx of hypercholesterolemia Disposition Disposition: Acute Care Hospital [facility] What to do if you have Problems For any increased pain, shortness of breath, bleeding, nausea or vomiting, chestpain, or any unexpected problems, contact your Primary Care Provider. Call [facility] ([phone]) or report to the closest Emergency Room. Call 911 if necessary. 07/11/221919 <Electronically signed by Nelson Hurley MD> Cosigner Signature (if applicable): CC: JAYDEN Cummins ~ Signed [facility] Work Phone: Discharge summary Author Dr. Celis [facility] July 12, 2022 4:55pm Note Date/Time July 12, 2022 4:1 0pm [facility] Medical Records Department [address] [place] [address] Discharge Summary 07/12/22 1609 MR#: [id number] Acct: [id number] Name: SEUN VELASCO Rep #:[id number] : 1970 51 From: Aspen Celis DO PCP: JAYDEN Smith Sta tus:ADM ИРИНА Location: [place] [address] Providers Date of Admission: 07/11/22 Date of [...] place andoriented to time Coordination / Balance: [id number] test normal Speech: speech normal Motor Exam: [...] (Auto) 72.4 H, Lymph % (Auto) 20.3, Colbert % (Auto) 5.2, Eos % (Auto) 0.9, [...] 26.8 07/11/22 21:21: POC Glucose 182 H 04/25/23 05:28: WBC 7.1, RBC 5.12, Hgb 14.4, Hct 45.5, MCV 88.9, MCH 28.1, MCHC 31.6 L, RDW Std Deviation 43.1, RDW Coeff of Anna 13.2, Plt Count 300, MPV 11.0, Immature Gran % (Auto) 0.400, Neut % (Auto) 70.3 H, Lymph % (Auto) 20.6, Colbert % (Auto) 6.9, Eos % (Auto) 1.1, [...] 18:02 EDT Reading Location ID and State: [facility] / [place] Tel [phone], Service support , ADDENDUM: 07/11/221826 IMPRESSION: Negative Brain CT without contrast. N.B. [...] Carson Fajardo DO at 18:45 EDT , Echocardiogram 07/11/22 20:50 Interpretation Summary The estimated ejection fraction is 65 %. Unable to assess diastolic dysfunction. Ordering Physician: Ravin Cristina Referring Physician: David Cummins Performed By: Mercedes Zavala, LOTUS, RVT D/C Instructions Discharge Diet: Low fat [...] Aspen Celis Primary Care Provider: David Cummins HOUSEHOLD APPLIANCE REPAIRER Consulting Providers: Ravin Cristina Discharge Orders/Prescriptions Prescriptions: [...] Recorder Preventi (Urgent) Timeframe: 1 Day Facility: [facility] - Location: Cardiovascular Services Ordered By: Dr. Aspen Celis Referrals / Follow Up: Nelson Gamino MD [Med Staff - Active Staff] - Within 1 Month (for carotid artery stenosis) Albert Melgoza MD [Non-Staff -Ordering Privileges] - Within 1 Month (TIA vs Myelopathy) David Cummins NP, NP-C [Primary Care Provider] - Within 1 Week Disposition Disposition (needs filled in before D/C Order can be placed): Home, Self Care Charges/Coding Visit Charges Inpatient E&M: 78351 Disch Hosp >30min 07/12/22 1655 <Electronically signed by Aspen Celis DO> Cosigner Signature (if applicable): CC: JAYDEN Cummins; Dr. Nelson Gamino MD; Dr. Aspen Celis DO; Dr. Albert Melgoza MD~ Signed [facility] Work Phone: Discharge summary Author Dr. Bella [facility] July 30, 2022 1:39pm Note Date/Time July 30, 2022 12:02 pm [facility] Medical Records Department [address] [place] [address] Emergency Department Summary 07/30/22 MR#: [id number] Acct: [id number] Name: SEUN VELASCO Rep #:[id number] : 1970 51 From: Gabino Odom PCP: JAYDEN Smith Sta tus:REG ER Location: [...] to have event monitor placed since then. [facility] Medical History Acute respiratory failure with hypoxia [...] Allergy Swelling Verified 07/30/22 11:10 Penicillins Allergy RASH/"LONG Verified 07/30/22 11:10 TIME TO WAKE ME UP" Family History Mother Lung cancer with associated [...] (Auto) 72.2 H Lymph % (Auto) 19.0 Colbert % (Auto) 6.1 Eos % (Auto) 1.7 [...] Color Urine Clarity Urine pH Ur Specific [place] Urine Protein Urine Glucose (UA) Urine Ketones [...] (Auto) Neut % (Auto) Lymph % (Auto) Colbert % (Auto) Eos % (Auto) Baso % (Auto) Absolute Neuts (auto) Absolute Lymphs (auto) Nucleated RBC % Sodium Potassium Chloride Carbon Dioxide Anion Gap BUN Creatinine Estim Creat Clear Calc Est GFR (MDRD) Af Amer Est GFR (MDRD) Non-Af BUN/Creatinine Ratio Glucose Calcium Urine Color Yellow Urine Clarity Clear Urine pH 6.0 Ur Specific [place] 1.015 Urine Protein Negative Urine Glucose (UA) [...] Provider: David Cummins NP Referrals: David Cummins NP, HOUSEHOLD APPLIANCE REPAIRER-C [Primary Care Provider] - 1-2 Weeks Activity [...] your Primary Care Provider. Call [facility] ([phone]) or report to the closest Emergency Room. Call 911 if necessary. 07/30/22 7363 <Electronically signed by Gabino Odom> Cosigner Signature (if applicable): CC: HOUSEHOLD APPLIANCE REPAIRER-C David Cummins ~ Signed [facility] Work Phone: Evaluation + Plan note Future Appointments Appointment Date:09/30/2021 03:20:00 PM Scheduled Provider:DAVID CUMMINS APRN, CNP Location:[facility] Appointment Type:PC OV Follow Up Appointment Date:10/01/2021 03:00:00 PM Scheduled Provider:DAVID CUMMINS APRN, CNP Location:[facility] Appointment Type:PC OV Follow Up Appointment Date:01/07/2022 03:00:00 PM Scheduled Provider:DAVID CUMMINS APRN, CNP Location:[facility] Appointment Type:PC OV Follow Up Future Scheduled [...] Chest 2 Views (PA & Lateral) 09/09/21 [facility] Evaluation + Plan note Future Appointments Appointment Date:01/26/2023 02:00:00 PM Scheduled Provider:DAVID CUMMINS APRN - ELECTRICAL AUTOMATION ENGINEER Location:[facility] Appointment Type:PC OV Follow Up Future [...] Radiology* XR Knee 3 Views Left 04/15/22 [facility] Evaluation + Plan note Future Appointments Appointment Date:12/11/2023 01:30:00 PM Scheduled Provider:BOOGIE ZALDIVAR LOOM BLOWER-ELECTRICAL AUTOMATION ENGINEER Location:[facility] Appointment Type:PC OV Future Scheduled Tests [...] Complete Metabolic Panel 01/25/23 * TIBC 01/25/23 [facility] Evaluation + Plan note Future Appointments Appointment Date:02/26/2024 01:00:00 PM Scheduled Provider:BOOGIE ZALDIVAR Location:[facility] Appointment Type:PC OV Appointment Date:03/27/2024 01:00:00 PM Scheduled Provider: Location:[facility] Appointment Type:MEDS - Diabetic Individual Visit Appointment Date:07/12/2024 01:00:00 PM Scheduled Provider:BOOGIE ZALDIVAR Location:[facility] Appointment Type:PC OV Future Scheduled Tests Laboratory* Clostridium difficile (PCR) 12/13/23 * Prostate Specific Antigen 07/12/24 * Stool Gastrointestinal Panel 12/13/23 * A1C Hemoglobin 07/12/24 * A1C Hemoglobin 12/19/23 * Complete Blood Count 12/26/23 * Lipid Profile 07/12/24 * Lipid Profile 12/19/23 * Albumin/Creatinine Ratio, Random Urine 07/12/24 * Complete Metabolic Panel 07/12/24 * Complete Metabolic Panel 12/19/23 [facility] Evaluation + Plan note Future Appointments Appointment Date:08/16/2024 10:30:00 AM Scheduled Provider: Location:[facility] Appointment Type:MEDS - Diabetic Individual Visit Appointment Date:08/16/2024 11:00:00 AM Scheduled Provider: Location:[facility] Appointment Type:NUT Diet Visit Individual Appointment Date:11/15/2024 10:00:00 AM Scheduled Provider:BOOGIE ZALDIVAR Location:[facility] Appointment Type:PC OV Future Scheduled Tests [...] Panel 11/14/24 * Complete Metabolic Panel 12/19/23 [facility] evaluation + Plan note Future Appointments Appointment Date:09/06/2024 10:00:00 AM Scheduled Provider: Location:[facility] Appointment Type:MEDS - [...] Panel 11/14/24 * Complete Metabolic Panel 12/19/23 [facility] evaluation note* Diagnosis Onset Date Resolution Status Acute dyspnea acute Acute respiratory failure with hypoxia acute History of diabetes mellitus acute Hypoxia acute Pneumonia acute [facility] [place] Work Phone: evaluation note* Diagnosis Onset Date Resolution Status Acute dyspnea acute Acute respiratory failure with hypoxia acute History of diabetes mellitus acute Hypoxia acute MRSA bacteremia acute Pneumonia acute Staphylococcal pneumonia acu te [facility] [place] Work Phone: evaluation note* Diagnosis Onset Date Resolution Status Acute dyspnea acute Acute respiratory failure with hypoxia acute History of diabetes mellitus acute Hypoxia acute MRSA bacteremia acute Pneumonia acute Staphylococcal pneumonia acu te MRSA bacteremia acute [facility] [place] Work Phone: evaluation noteNo assessment information available [facility] [place] Work Phone: Evaluation note* Diagnosis Onset Date Resolution Status Brain TIA acute History of diabetes mellitus, type II acute History of hypertension acut e Hx of hypercholesterolemia a cute Morbid obesity acute Numbness and tingling acute [facility] [place] Work Phone: Evaluation note* Diagnosis Onset Date Resolution Status Brain TIA acute History of diabetes mellitus, type II acute History of hypertension acut e Hx of hypercholesterolemia a cute Morbid obesity acute Numbness and tingling acute Essential hypertension chron ic [facility] [place] Work Phone: Evaluation note* Diagnosis Onset Date Resolution Status Numbness and tingling resolv ed [facility] [place] Work Phone: Evaluation note* Diagnosis Onset Date Resolution Status Numbness and tingling resolv ed Carotid artery disease nonea ctive [facility] [place] Work Phone: Hospital course Narrative No data available for this section [facility] Hospital Discharge instructions No data available for this section [facility] Hospital Discharge instructions Additional Instructions History concerning for hypoglycemic event. Labs and urine stable. Glucose 192 in the lab. Make sure you eat your planned meal when you give yourself insulin. Follow-up with your doctor. Return if worsening or recurrent symptoms.[facility] [place] Work Phone: Progress note No data available for this section [facility] Reason for referral (narrative)No reason for referral [facility] Work Phone: Chief Complaint and Reason for [...] Allergic reaction August 14, 2024 5:25p m Chief Complaint Admit Date Allergic reaction August 14, 2024 5:25p m LABS November 02, 2024 6: 50am Family History No Family History Records Found Relationship Condition Age at Onset Recorded Date/T av mother Malignant neoplasm of lung Unknown father Cardiac disease Unknown Congestive heart failure Unknown Hypertension Unknown Advance Directives No Advanced Directives Records Found Advance Directive Response Recorded Date/ Time Advance Directives No February 12:32am Living Will No August 04, 2021 1 0:20am Power of Rug Sizer No August 04, 2021 10:20am Advance Directive Response Recorded Date/ Time Advance Directives No February 12:32am Living Will No August 04, 2021 5 :07pm Power of Rug Sizer No August 04, 2021 5:07pm Advance Directive Response Recorded Date/ Time Advance Directives No February 12:32am Living Will No August 14, 2021 1 :11pm Power of Rug Sizer No August 14, 2021 1:11pm Advance Directive Response Recorded Date/ Time Advance Directives No February 11:32pm Living Will No August 14, 2021 1 2:11pm Power of Rug Sizer No August 14, 2021 12:11pm Advance Directive Response Recorded Date/ Time Advance Directives No February 12:32am Living Will No July 11, 2022 5:00pm Power of Rug Sizer No July 11 5:00pm Advance Directive Response Recorded Date/ Time Advance Directives No February 12:32am Living Will No July 11, 2022 8:52pm Power of Rug Sizer No July 11 8:52pm Advance Directive Response Recorded Date/ Time Advance Directives No February 12:32am Living Will No July 30, 2022 1 2:11pm Power of Rug Sizer No July 30, 2022 12:11pm Advance Directive Response Recorded Date/ Time Living Will No July 30, 2022 1 2:11pm Do you have a Healthcare Power of Rug Sizer? No July 30, 2022 12:11pm Advance Directives No February 12:32am Advance Directive Response Recorded Date/ Time Advance Directives No February 12:32am Summary Purpose [...] may be documented in an alternate section Care Team (unrecognized sect ion and content) Care Team Personnel Name: DAVID CUMMINS Nathaniel LOOM BLOWER - ELECTRICAL AUTOMATION ENGINEER Position: P4 Advanced Practice Nurse Med Service: Employed Provider Member Role: Primary Care Physician Address: Address: [address] [place] [address] Care Team Related Persons Name: SEUN VELASCO II Care Teams (unrecognized sec tion and content) Team Status: Active Member Role Status Dates David Cummins HOUSEHOLD APPLIANCE REPAIRER, HOUSEHOLD APPLIANCE REPAIRER-C Family Provider Activ e David Cummins HOUSEHOLD APPLIANCE REPAIRER, HOUSEHOLD APPLIANCE REPAIRER-C Primary Care Provider Active Team Status: Inactive Member Role Status Dates David Cummins HOUSEHOLD APPLIANCE REPAIRER, HOUSEHOLD APPLIANCE REPAIRER-C Primary Care Provider, Attending Provider Active Team Status: Inactive Member Role Status Dates David Cummins HOUSEHOLD APPLIANCE REPAIRER, HOUSEHOLD APPLIANCE REPAIRER-C Primary Care Provider, Attending Provider, Referring Provider Active Team Status: Active Member Role Status Dates David Cummins HOUSEHOLD APPLIANCE REPAIRER, HOUSEHOLD APPLIANCE REPAIRER-C Primary Care Provider Active Dr. Jaden Lucio MD Attending Provider Active Team Status: Active Member Role Status Dates David Cummins HOUSEHOLD APPLIANCE REPAIRER, HOUSEHOLD APPLIANCE REPAIRER-C Primary Care Provider, Attending Provider Active Team Status: Active Member Role Status Dates David Cummins HOUSEHOLD APPLIANCE REPAIRER, HOUSEHOLD APPLIANCE REPAIRER-C Primary Care Provider, Referring Provider Active Dr. Jaden Lucio MD Attending Provider Active Team Status: Active Member Role Status Dates David Cummins HOUSEHOLD APPLIANCE REPAIRER, HOUSEHOLD APPLIANCE REPAIRER-C Primary Care Provider Active Dr. Nelson Hurley MD Emergency Provider Active Dr. Ravin Cristina MD Admit Provider, Attending Pro vider Active Team Status: Active Member Role Status Dates David Cummins HOUSEHOLD APPLIANCE REPAIRER, HOUSEHOLD APPLIANCE REPAIRER-C Primary Care Provider Active Dr. Nelson Hurley MD Emergency Provider Active Dr. Ravin Cristina MD Admit Provider, Attending Provider, Other Provider Active Team Status: Active Member Role Status Dates David Cummins HOUSEHOLD APPLIANCE REPAIRER, HOUSEHOLD APPLIANCE REPAIRER-C Primary Care Provider Active Dr. Jamey Guillermo MD Attending Provider Activ e Team Status: Active Member Role Status Dates David Cummins HOUSEHOLD APPLIANCE REPAIRER, HOUSEHOLD APPLIANCE REPAIRER-C Primary Care Provider Active Dr. Nelson Hurley MD Emergency Provider Active Dr. Ravin Cristina MD Admit Provider, Other Provide r Active Dr. Aspen Celis DO Attending Provider, Other Provide r Active Team Status: Inactive Member Role Status Dates David Cummins HOUSEHOLD APPLIANCE REPAIRER, HOUSEHOLD APPLIANCE REPAIRER-C Primary Care Provider Active Dr. Nelson Hurley MD Emergency Provider Active Dr. Ravin Cristina MD Admit Provider, Other Provide r Active Dr. Aspen Celis DO Attending Provider Active Team Status: Inactive Member Role Status Dates David Cummins HOUSEHOLD APPLIANCE REPAIRER, HOUSEHOLD APPLIANCE REPAIRER-C Primary Care Provider, Referring Provider Active CHITRA Lange Attending Provider Active Team Status: Active Member Role Status Dates David Cummins HOUSEHOLD APPLIANCE REPAIRER, HOUSEHOLD APPLIANCE REPAIRER-C Primary Care Provider Active Dr. Nelson Gamino MD Attending Provider Active Team Status: Active Member Role Status Dates David Cummins HOUSEHOLD APPLIANCE REPAIRER, HOUSEHOLD APPLIANCE REPAIRER-C Primary Care Provider Active CHITRA Lange Attending Provider, Referring Provider Active Team Status: Active Member Role Status Dates David Cummins HOUSEHOLD APPLIANCE REPAIRER, HOUSEHOLD APPLIANCE REPAIRER-C Primary Care Provider Active Dr. Aspen Celis DO Attending Provider Active Team Status: Inactive Member Role Status Dates David Cummins HOUSEHOLD APPLIANCE REPAIRER, HOUSEHOLD APPLIANCE REPAIRER-C Primary Care Provider Active Dr. Gabino Bella DO Emergency Provider Active Team Status: Inactive Member Role Status Dates David Cummins HOUSEHOLD APPLIANCE REPAIRER, HOUSEHOLD APPLIANCE REPAIRER-C Primary Care Provider Active CHITRA Lange Attending Provider, Referring Provider Active Team Status: Active Member Role Status Dates David Cummins HOUSEHOLD APPLIANCE REPAIRER, HOUSEHOLD APPLIANCE REPAIRER-C Primary Care Provider Active Team Status: Inactive Member Role Status Dates David Cummins HOUSEHOLD APPLIANCE REPAIRER, HOUSEHOLD APPLIANCE REPAIRER-C Primary Care Provider Active Start: April 292024 End: April 29, 2024 BOOGIE DOUGLASSETJUAN HOUSEHOLD APPLIANCE REPAIRER-C Attending Provider Active Start: April 29, 2024 End: April 29, 2024 BOOGIE ZALDIVAR HOUSEHOLD APPLIANCE REPAIRER-C Referring Provider Active Start: April 29, 2024 End: April 29, 2024 Team Status: Inactive Member Role Status Dates David Cummins HOUSEHOLD APPLIANCE REPAIRER, HOUSEHOLD APPLIANCE REPAIRER-C Primary Care Provider Active Start: August 14, 2024 End: August 14, 2024 Ed Physician Provider Emergency Provider Active Start: August 14, 2024 End: August 14, 2024 Team Status: Active Member Role/Relationship Status Dates David Cummins HOUSEHOLD APPLIANCE REPAIRER, HOUSEHOLD APPLIANCE REPAIRER-C Primary Care Provider Active Team Status: Inactive Member Role/Relationship Status Dates David Cummins NP, HOUSEHOLD APPLIANCE REPAIRER-C Primary Care Provider Active Start: August 14, 2024 End: August 14, 2024 Ed Physician Provider Attending Provider Active Start: August 14, 2024 End: August 14, 2024 Ed Physician Provider Emergency Provider Active Start: August 14, 2024 End: August 14, 2024 Team Status: Inactive Member Role/Relationship Status Dates David Cummins NP, HOUSEHOLD APPLIANCE REPAIRER-C Primary Care Provider Active Start: October End: November 02, 2024 JAYDEN DAVIES Attending Provider Active Start: November 02, 2024 End: November 02, 2024 JAYDEN DAVIES Referring Provider Active Start: November 02, 2024 End: November 02, 2024 (unrecognized sect ion and content) No Status Records FoundNo Status Records FoundNo Status Records Found INFORMATION SOURCE (unrecogn ized section and content) DATE CREATED AUTHOR 11/25/2023 [facility] [place] DATE CREATED AUTHOR AUTHOR'S ORGANIZ ATION 11/24/2024 [facility] DATE CREATED AUTHOR AUTHOR'S ORGANIZ ATION 01/24/2025 [facility] FOR RECORDS PERTAINING TO PATIENTS WHO ARE [...] BE BASED ON THE PRIMARY CLINICAL RECORDS. [facility] provides no warranty or guarantee of the accuracy or completeness of information in this document.
[2025-02-15 08:44] LABS: AST(SGOT) 20 U/L (<=37); Alanine Aminotransfer ALT/SGPT 26 U/L (<=46); Albumin, Serum 4.2 g/dL (3.5-5.0); Alkaline Phosphatase 120 U/L (40-129); Anion Gap 8 (5-15); BUN 12 mg/dL (4-19); BUN/Creat Ratio 14.5 RATIO (10-20); Calcium,Total 9.1 mg/dL (7.6-11.0); Carbon Dioxide 27.2 mmol/L (21.0-32.0); Chloride 104 mmol/L (98-108); Cholesterol 199 mg/dL (<=200); Globulin 2.7 g/dL (2.2-4.2); Glucose 270 mg/dL (70-99); Low Density Lipoprotein Calc. 141 mg/dL; PSA,Total - Annual Screen 0.67 ng/mL (0.02-4.00); Potassium 3.9 mmol/L (3.3-5.1); Triglycerides 92 mg/dL; Very Low Density Lipoprotein 18 mg/dL (5-40); cholesterol:hdl ratio screen 4.76
== END | disposition home or self-care (01) ==
LOC: LAB 06:51
PROVIDERS: PCP Nurse Practitioner Family; Referring Provider Nurse Practitioner Family; Visit Provider Nurse Practitioner Family
DX: I10 Essential (primary) hypertension (principal); E11.9 Type 2 diabetes mellitus without complications; E78.5 Hyperlipidemia, unspecified; Z12.5 Encounter for screening for malignant neoplasm of prostate
CPT/HCPCS: 36415; 80053; 80061; 83036; 84153; G0103

== ENCOUNTER → 2025-02-17 | Outpatient (CLI) | payer MEDICARE, SELFPAY ==
--- OUTSIDE RECORDS SUMMARY | 2025-02-17 06:53 | XMS RPT_ITS | CCD ---
Author Organization [facility] Care Team Providers Care Nursing Technician Name Role Phone Placido CHIEF ENGINEER DRILLING AND RECOVERY, CHIEF ENGINEER DRILLING AND RECOVERY-C [place] Primary Care Pr ovider Dr. Jelani Taylor Emergency Provider Dr. Diana Krause Admit Provider Dr. Diana Krause Other Provider Dr. Jimmy Mendez Other Provider JAYDEN Fairchild Attending Provider Unavail able Dr. Alexander Arnold Other Provider Dr. Perry Bearden Other Provider Dixon WELLS, PRSICILLA-Jasbir Panda Other Provider Dr. Jimmy Mendez Referring Provider Dr. Perry Bearden Attending Provider Dr. Jimmy Mendez Attending Provider Dr. Jaden Tipton Other Provider Dr. Jamey Guillermo Attending Provider Dr. Alexander Arnold Attending Provider Dr. Maria E Crews Other Provider Dr. Maria E Crews Attending Provider Dr. Jimmy Mendez Attending Provider Placido WELLS, PRISCILLA-Jasbir [place] Referring Provi alhaji Dixon WELLS, CHIEF ENGINEER DRILLING AND RECOVERY-C Amarilys Attending Provider PLACIDO WATER MECHANIC - DAVID MILLAN Primary Care Phys ician Placido CHIEF ENGINEER DRILLING AND RECOVERY, CHIEF ENGINEER DRILLING AND RECOVERY-C [place] Primary Care Pr ovider Dr. Jaden Lucio Attending Provider Placido CHIEF ENGINEER DRILLING AND RECOVERY, CHIEF ENGINEER DRILLING AND RECOVERY-C [place] Primary Care Pr ovider Placido CHIEF ENGINEER DRILLING AND RECOVERY, CHIEF ENGINEER DRILLING AND RECOVERY-C [place] Referring Provi alhaji Dr. Jaden Lucio Attending Provider Dr. Nelson Hurley Emergency Provider [phone] Dr. Ravin Cristina Admit Provider Dr. Ravin Cristina Attending Provider Dr. Ravin Cristina Other Provider Dr. Jamey Guillermo Attending Provider [phone] Dr. Aspen Celis Attending Provider Dr. Aspen Celis Other Provider CHITRA Eli Attending Provider Dr. Nelson Gamino Attending Provider [phone] Jacinta Yang Unavailable Unavailable KAYLEY WATER MECHANIC-CONTAINER COORDINATOR, BOOGIE Primary Care Physician ANABEL HANSEN, BOOGIE Attending Unavailable DAVID LOVELACE APRN, CNP Primary Care U navailable KAYLEY WATER MECHANIC-CONTAINER COORDINATOR, BOOGIE Primary Care UnaDAVID Martinez APRN, CNP Attending U navailable KAYLEY WATER MECHANIC-CONTAINER COORDINATOR, BOOGIE Primary Care Unavai CUATE Serrano Attending Unavailable STEPHEN MILLIGAN Consulting Unavailable KEVIN SPRAGUE, PHOEBE Admitting Unavailable DAPHNE VELAZQUEZ MD Attending Unavailable DAVID LOVELACE APRN, CNP Primary Care U LUIS DANIEL Bassett MD Consulting Unavailable Placido CHIEF ENGINEER DRILLING AND RECOVERY-C, [place] Primary Care Provi alhaji KAYLEY CHIEF ENGINEER DRILLING AND RECOVERY-C, BOOGIE Attending Provider KAYLEY CHIEF ENGINEER DRILLING AND RECOVERY-C, BOOGIE Referring Provider Provider, Ed Physician Emergency Provider Matthew Cummins CHIEF ENGINEER DRILLING AND RECOVERY-C, [place] Primary Care Provi alhaji Provider, Ed Physician Attending Provider Matthew ZALDIVAR CHIEF ENGINEER DRILLING AND RECOVERY-C, BOOGIE Attending Provider KAYLEY CHIEF ENGINEER DRILLING AND RECOVERY-C, BOOGIE Referring Provider KAYLEY, BOOGIE Referring Unavailable Placido CHIEF ENGINEER DRILLING AND RECOVERY, [place] Primary Care Unav ailable KAYLEY, BOOGIE Attending Unavailable Placido CHIEF ENGINEER DRILLING AND RECOVERY, [place] Primary Care Unav ailable Provider, Ed Physician Attending Unavailab le KAYLEY, BOOGIE Attending Unavailable KAYLEY, BOOGIE Referring Unavailable Placido CHIEF ENGINEER DRILLING AND RECOVERY, [place] Primary Care Unav ailable KAYLEY, BOOGIE Referring Unavailable Placido CHIEF ENGINEER DRILLING AND RECOVERY, [place] Primary Care Unav ailable KAYLEY, BOOGIE Attending Unavailable KAYLEY WATER MECHANIC-CONTAINER COORDINATOR, BOOGIE Attending Unavai lable KAYLEY WATER MECHANIC-CONTAINER COORDINATOR, BOOGIE Primary Care Unavai lable [facility], BOOGIE Attending Unavailable KAYLEY WATER MECHANIC-CONTAINER COORDINATOR, BOOGIE Primary Care Unavai lable KAYLEY WATER MECHANIC-CONTAINER COORDINATOR, BOOGIE Attending Unavai lable KAYLEY WATER MECHANIC-CONTAINER COORDINATOR, BOOGIE Primary Care Unavai lable KAYLEY WATER MECHANIC-CONTAINER COORDINATOR, BOOGIE Primary Care Unavai lable ADRIEL WATER MECHANIC-CONTAINER COORDINATOR, SAYEDA Attending Unavailab le KAYLEY WATER MECHANIC-CONTAINER COORDINATOR, BOOGIE Primary Care Unavai lable KAYLEY WATER MECHANIC-CONTAINER COORDINATOR, BOOGIE Attending Unavai lable Allergies Allergy Classification Reported Allergen(s) Allergy Type Date of Onset Reaction(s) Facility (20 sources) Penicillins; Translations: [Penicillins] Allergy to substance 10-08-19 21 RASH/LONG TIME TO WAKE ME UP [facility] (20 sources) bee venom protein (honey bee) Allergy to substance 10-08-19 21 Swelling [facility] (7 sources) Bee/Wasp/Ant venom Allergy to substance Unknown (qualifier value) [facility] (7 sources) exenatide; Translations: [exenatide] Drug Allergy [place] sick [facility] (7 sources) metFORMIN; Translations: [metformin] Drug Allergy Diarrhea (finding) [facility] (7 sources) Penicillin; Translations: [penicillin] Drug Allergy Drowsiness, function (observable entity) [facility] (7 sources) Sulfamethoxazole / Trimethoprim; Translations: [sulfamethoxazole-tr imethoprim] Drug Allergy Eruption of skin (disorder) [facility] (6 sources) Amoxicillin; Translations: [amoxicillin] Drug Allergy amoxicillin [facility] (1 source) bee venom protein (honey bee) Drug allergy (disorder) 08-15-19 [facility] Repository Medications Current Medications Medication Drug Class(es) [...] BID, # 180 tab(s), 1 Refill(s), Pharmacy: [facility], HTN, goal below 140/90, 169, [...] Active 80 mg PO AT BEDTIME 30 0 Evangelina 25th, 2023 12:00am benzonatate 100 mg oral capsule (10 [...] use, # 10.7 gram(s), 3 Refill(s), Pharmacy: [facility], COPD with asthma, 170, cm, [...] qDay, # 90 cap(s), 1 Refill(s), Pharmacy: [facility], Osteoarthritis of multiple joints, 168, cm, 01/12/24 14:55:00 EDT, Height, kg, 01/12/24 14:55:00 EDT, Dosing Weight Start Date: 01/12/24 Status: Ordered Start: 07-25-2022 CeleBREX 200 m g oral capsule Dose : 200 mg = 1 cap(s), Oral, qDay, # 90 cap(s), 1 Refill(s), Pharmacy: [facility], Pain of right knee after injury, 173, cm, 07/25/22 13:56:00 EDT, Height, kg, 07/25/22 13:56:00 EDT, Dosing Weight Start Date: 07/25/22 Status: Ordered cetirizine hydrochloride 10 mg oral tablet (1 source) Histamine-1 Receptor Antagonist Start: 09-23-2023 End: 10-23-2023 cetirizine 10 mg oral tablet Dose : 10 mg = 1 tab(s), Oral, qDay, PRN Rash, # 30 tab(s), 0 Refill(s), Pharmacy: [facility], 66.3, cm, 09/23/23 8:52:00 EDT, Height, kg, 09/23/23 8:52:00 EDT, Dosing Weight Start Date: 09/23/23 Stop Date: 10/23/23 Status: Ordered chlorhexidine gluconate 40 mg/ml medicated liquid soap (1 source) Start: 12-08-2022 End: 12-13-2022 apply 1 dose topically once daily chlorhexidine 4% topical soap Dose = 1 merlene, Topical, Daily, # 120 mL, 0 Refill(s), Pharmacy: [facility], 167.6, cm, 12/04/22 17:22:00 EDT, Height, kg, 12/04/22 17:22:00 EDT, Dosing Weight Start Date: 12/08/22 Stop Date: 12/13/22 Status: Ordered cholecalciferol 1.25 mg oral capsule (4 sources) Vitamin D Start: 06-19-2023 End: 12-16-2023 cholecalciferol 1250 mcg (50,000 intl units) oral capsule Dose : 1,250 mcg = 1 cap(s), Oral, qWeek, # 13 cap(s), 1 Refill(s), Pharmacy: [facility], Vitamin D deficiency, 168.3, cm, 06/19/23 14:00:00 EDT, Height, kg, 06/19/23 14:00:00 EDT, Dosing Weight Start Date: 06/19/23 Stop Date: 12/16/23 Status: Ordered Start: 07-25-2022 End: 01-21-2023 cholecalciferol 1250 mcg (50 ,000 intl units) oral capsule Dose : 1,250 mcg = 1 cap(s), Oral, qWeek, # 13 cap(s), 1 Refill(s), Pharmacy: [facility], Vitamin D deficiency, 173, cm, 07/25/22 13:56:00 EDT, Height, kg, 07/25/22 13:56:00 EDT, Dosing Weight Start Date: 07/25/22 Stop Date: 01/21/23 Status: Ordered Start: 07-02-2021 End: 12-29-2021 cholecalciferol 1250 mcg (50 ,000 intl units) oral capsule Dose : 1,250 mcg = 1 cap(s), Oral, qWeek, # 13 cap(s), 1 Refill(s), Pharmacy: [facility], Vitamin D deficiency, 169, cm, 07/02/21 [...] 0 Refill(s), 12/18/22 11:14:00 AM EDT, Pharmacy: [facility], 167.6, cm, 12/04/22 17:22:00 EDT, Height, [...] glucose, # 2 EA, 11 Refill(s), Pharmacy: [facility], 170, cm, 02/26/24 12:58:00 EST, Height, 151.3, kg, 02/26/24 12:58:00 EST, Dosing Weight Start Date: 03/26/24 Status: Ordered Quantity: 2.0 Unit: EA Repeat number: 12 Start: 09-25-2023 DME MISCellane ous See Instructions, Knee-high compression stockings with compression of 20-30. Requesting 2 pairs., # 2 EA, 0 Refill(s), Pharmacy: [facility], Peripheral edema, 170, cm, 09/25/23 13:05:00 EDT, Height, 152.7, kg, 09/25/23 13:05:00 EDT, Dosing Weight Start Date: 09/25/23 Status: Ordered Quantity: 2.0 Unit: EA Repeat number: 1 Indications: Edema, unspecified; Start: 09-25-2023 DME MISCellane ous See Instructions, Knee-high compression stockings with compression of 20-30. Requesting 2 pairs., # 2 EA, 0 Refill(s), Pharmacy: [facility], Peripheral edema, 170, cm, 09/25/23 13:05:00 EDT, Height, 152.7, kg, 09/25/23 13:05:00 EDT, Dosing Weight Start Date: 09/25/23 Status: Ordered Start: 05-24-2023 DME MISCellane ous See Instructions, Libre3 Sensors #2 sensors. Apply to arm once every 14 days to monitor glucose, # 2 EA, 11 Refill(s), [facility], 170, cm, 04/13/23 13:42:00 EST, Height, 158.4, kg, 05/16/23 13:39:00 EST, Dosing Weight Start Date: 05/24/23 Status: Ordered Start: 03-24-2022 DME MISCellane ous See Instructions, Compression socks, knee high with compression 30-40, # 2 EA, 0 Refill(s), Pharmacy: [facility], Chronic venous insufficiency, 169, cm, 01/25/22 10:01:00 EST, Height, 180.7, kg, 01/25/22 10:01:00 EST, Dosing Weight Start Date: 03/24/22 Status: Ordered Quantity: 2.0 Unit: EA Repeat number: 1 Indications: Venous insufficiency (chronic) (peripheral); Start: 03-24-2022 DME MISCellane ous See Instructions, Compression socks, knee high with compression 30-40, # 2 EA, 0 Refill(s), Pharmacy: [facility], Chronic venous insufficiency, 169, cm, 01/25/22 [...] 0 Refill(s), 12/11/22 1:57:00 PM EDT, Pharmacy: [facility], Abscess, 173, cm, 12/01/22 13:40:00 EDT, [...] dose, # 60 tab(s), 0 Refill(s), Pharmacy: [facility], 66.3, cm, 09/23/23 8:52:00 EDT, Height, kg, 09/23/23 8:52:00 EDT, Dosing Weight Start Date: 09/23/23 Stop Date: 10/23/23 Status: Ordered ferrous sulfate 325 mg oral tablet (3 sources) Start: 07-25-2022 End: 01-21-2023 ferrous sulfate 325 mg (65 mg elemental iron) oral tablet Dose : 325 mg = 1 tab(s), Oral, qDay, # 90 tab(s), 1 Refill(s), Pharmacy: [facility], 173, cm, 07/25/22 13:56:00 EDT, Height, kg, 07/25/22 13:56:00 EDT, Dosing Weight Start Date: 07/25/22 Stop Date: 01/21/23 Status: Ordered Start: 07-02-2021 End: 12-29-2021 ferrous sulfate 325 mg (65 m g elemental iron) oral tablet Dose : 325 mg = 1 tab(s), Oral, qDay, # 90 tab(s), 1 Refill(s), Pharmacy: [facility], 169, cm, 07/02/21 15:31:00 EDT, Height, [...] using, # 16 gram(s), 5 Refill(s), Pharmacy: [facility], Allergic rhinitis, 169, cm, 02/19/24 10:03:00 [...] qDay, # 90 tab(s), 1 Refill(s), Pharmacy: [facility], 169, cm, 05/17/24 10:17:00 EST, Height, kg, 05/17/24 10:17:00 EST, Dosing Weight Start Date: 05/17/24 Status: Ordered Quantity: 90.0 Unit: tab(s) Repeat number: 2 Start: 01-12-2024 Lasix 20 mg or al tablet Dose : 20 mg = 1 tab(s), Oral, qDay, # 90 tab(s), 1 Refill(s), Pharmacy: [facility], 168, cm, 01/12/24 14:55:00 EDT, Height, kg, 01/12/24 14:55:00 EDT, Dosing Weight Start Date: 01/12/24 Status: Ordered Start: 06-19-2023 Lasix 20 mg or al tablet Dose : 20 mg = 1 tab(s), Oral, qDay, # 90 tab(s), 1 Refill(s), Pharmacy: [facility], 168.3, cm, 06/19/23 14:00:00 EDT, Height, kg, 06/19/23 14:00:00 EDT, Dosing Weight Start Date: 06/19/23 Status: Ordered Start: 11-11-2022 End: 01-10-2023 Lasix 20 mg oral tablet Dose : 20 mg = 1 tab(s), Oral, qDay, # 30 tab(s), 1 Refill(s), Pharmacy: [facility], 173, cm, 10/28/22 13:51:00 EDT, [...] qDay, # 30 tab(s), 1 Refill(s), Pharmacy: [facility], 168.3, cm, 06/19/23 14:00:00 EDT, [...] supply, # 75 mL, 1 Refill(s), Pharmacy: [facility], 173, cm, 10/28/22 13:51:00 EDT, Height, [...] supply, # 65 mL, 1 Refill(s), Pharmacy: [facility], 169, cm, 07/02/21 15:31:00 EDT, Height, [...] BIDAC, # 45 mL, 1 Refill(s), Pharmacy: [facility], 170, cm, 07/08/24 13:21:00 EDT, Height, [...] qHS, # 30 tab(s), 6 Refill(s), Pharmacy: [facility], Seasonal allergies, 170, cm, 11/17/20 14:55:00 [...] qDay, # 9 mL, 3 Refill(s), Pharmacy: [facility], 170, cm, 07/08/24 13:21:00 EDT, Height, kg, 07/08/24 13:21:00 EDT, Dosing Weight Start Date: 07/17/24 Stop Date: 11/14/24 Status: Ordered Quantity: 9.0 Unit: mL Repeat number: 4 Start: 02-14-2024 End: 06-13-2024 inject 1 dose by subcutaneous injection once daily Victoza 18 mg/3 mL subcutaneous Pen Dose : 1.8 mg =, Subcutaneous, qDay, # 9 mL, 3 Refill(s), Pharmacy: [facility], 169, cm, 02/06/24 15:50:00 EST, Height, kg, 02/06/24 15:50:00 EST, Dosing Weight Start Date: 02/14/24 Stop Date: 06/13/24 Status: Ordered Start: 05-04-2023 End: 01-29-2024 inject 1 dose by subcutaneous injection once daily Victoza 18 mg/3 mL subcutaneous Pen Dose : 1.8 mg =, Subcutaneous, qDay, # 15 mL, 2 Refill(s), Pharmacy: [facility], 170, cm, 04/13/23 13:42:00 EST, Height, kg, 04/13/23 13:42:00 EST, Dosing Weight Start Date: 05/04/23 Stop Date: 01/29/24 Status: Ordered Start: 10-28-2022 End: 04-26-2023 inject 1 dose by subcutaneous injection once daily Victoza 18 mg/3 mL subcutaneous Pen Dose : 1.8 mg =, Subcutaneous, qDay, # 15 mL, 1 Refill(s), Pharmacy: [facility], 173, cm, 10/28/22 13:51:00 EDT, Height, kg, 10/28/22 13:51:00 EDT, Dosing Weight Start Date: 10/28/22 Stop Date: 04/26/23 Status: Ordered Start: 07-02-2021 inject 1 dose by sub cutaneous injection once daily Victoza 18 mg/3 mL subcutaneous Pen Dose : 1.8 mg =, Subcutaneous, qDay, # 9 mL, 6 Refill(s), Pharmacy: [facility], 169, cm, 07/02/21 15:31:00 EDT, Height, kg, 07/02/21 15:31:00 EDT, Dosing Weight Start Date: 07/02/21 Status: Ordered loratadine 10 mg oral tablet (3 sources) Start: 02-19-2024 loratadine 10 mg oral tablet Dose : 10 mg = 1 tab(s), Oral, qDay, # 90 tab(s), 1 Refill(s), Pharmacy: [facility], Allergic rhinitis, 169, cm, 02/19/24 10:03:00 [...] day(s), # 15 gram(s), 0 Refill(s), Pharmacy: [facility], 167.6, cm, 12/04/22 17:22:00 EDT, Height, [...] q24h, # 4 gram(s), 5 Refill(s), Pharmacy: [facility], COPD with asthma, 169, cm, [...] q24h, # 4 gram(s), 0 Refill(s), Pharmacy: [facility], COPD with asthma, 168, cm, 07/07/23 9:06:00 EDT, Height, kg, 08/10/23 15:08:00 EDT, Dosing Weight Start Date: 08/18/23 Status: Ordered Start: 11-11-2022 take 1 dose by inhal ation every twenty-four hours Stiolto Respimat 60 ACT 2.5 mcg-2.5 mcg/inh inhalation aerosol Dose = 2 puff(s), Inhalation, q24h, # 4 gram(s), 5 Refill(s), Pharmacy: [facility], COPD with asthma, 173, cm, 10/28/22 [...] qDay, # 4 gram(s), 1 Refill(s), Pharmacy: [facility], MRSA pneumonia Chronic coughing, 169, cm, [...] 0 Refill(s), 12/11/22 10:52:00 AM EDT, Pharmacy: [facility], Neck pain, 167.6, cm, 12/04/22 17:22:00 [...] Daily, # 90 tab(s), 1 Refill(s), Pharmacy: [facility], 169, cm, 05/17/24 10:17:00 EST, Height, kg, 05/17/24 10:17:00 EST, Dosing Weight Start Date: 05/17/24 Status: Ordered Quantity: 90.0 Unit: tab(s) Repeat number: 2 Start: 06-01-2023 pioglitazone 4 5 mg oral tablet Dose : 45 mg = 1 tab(s), Oral, Daily, # 90 tab(s), 3 Refill(s), Pharmacy: [facility], 170, cm, 05/31/23 13:52:00 EDT, Height, kg, 05/31/23 13:48:00 EDT, Dosing Weight Start Date: 06/01/23 Status: Ordered Start: 10-28-2022 Actos 45 mg or al tablet Dose : 45 mg = 1 tab(s), Oral, qDay, # 90 tab(s), 1 Refill(s), Pharmacy: [facility], DM type 2, goal HbA1c Start Date: 10/28/22 Status: Ordered Start: 02-23-2021 End: 09-21-2021 Actos 45 mg oral tablet Dose : 45 mg = 1 tab(s), Oral, qDay, # 30 tab(s), 6 Refill(s), Pharmacy: [facility], DM type 2, goal HbA1c Start [...] med., # 20 tab(s), 0 Refill(s), Pharmacy: [facility], 66.3, cm, 09/23/23 8:52:00 EDT, Height, [...] qDay, # 90 tab(s), 1 Refill(s), Pharmacy: [facility], Hyperlipidemia LDL goal Start Date: 05/17/24 Stop Date: 11/13/24 Status: Ordered Quantity: 90.0 Unit: tab(s) Repeat number: 2 Indications: Hyperlipidemia, unspecified; Start: 06-19-2023 End: 12-16-2023 rosuvastatin 40 mg oral tabl et Dose : 40 mg = 1 tab(s), Oral, qDay, # 90 tab(s), 1 Refill(s), Pharmacy: [facility], Hyperlipidemia LDL goal Start Date: 06/19/23 Stop Date: 12/16/23 Status: Ordered Start: 07-25-2022 End: 01-21-2023 rosuvastatin 40 mg oral tabl et Dose : 40 mg = 1 tab(s), Oral, qDay, # 90 tab(s), 1 Refill(s), Pharmacy: [facility], Hyperlipidemia LDL goal Start Date: 07/25/22 Stop Date: 01/21/23 Status: Ordered Start: 07-02-2021 End: 12-29-2021 rosuvastatin 40 mg oral tabl et Dose : 40 mg = 1 tab(s), Oral, qDay, # 90 tab(s), 1 Refill(s), Pharmacy: [facility], Hyperlipidemia LDL goal Start Date: 07/02/21 [...] qDay, # 90 tab(s), 1 Refill(s), Pharmacy: [facility], 173, cm, 07/25/22 13:56:00 EDT, [...] qDay, # 90 tab(s), 1 Refill(s), Pharmacy: [facility], 169, cm, 07/02/21 15:31:00 EDT, Height Start Date: 07/02/21 Status: Ordered Completed/Discontinued Medications Medication Drug Class(es) Dates Sig (Normalized) Sig (Original) [id number] 200 actuat albuterol 0.09 mg/actuat metered dose inhaler (20 sources) beta2-Adrenergic Agonist Start: 03-26-2024 End: 06-24-2024 take 2 puff(s) by inhalation every six hours as needed for wheezing ProAir HFA MDI (90 mcg/inh) inhalation aerosol 2 puff(s), Inhalation, q6h, PRN as needed for wheezing, # 1 EA, 2 Refill(s), Pharmacy: [facility], Asthma, 170, cm, 02/26/24 12:58:00 [...] wheezing, # 1 EA, 0 Refill(s), Pharmacy: [facility], Asthma, 168, cm, 07/07/23 9:06:00 EDT, Height, kg, 08/10/23 15:08:00 EDT, Dosing Weight Start Date: 08/18/23 Stop Date: 09/17/23 Status: Ordered Start: 07-25-2022 End: 02-20-2023 take 2 puff(s) by inhalation every six hours as needed for wheezing ProAir HFA MDI (90 mcg/inh) inhalation aerosol 2 puff(s), Inhalation, q6h, PRN as needed for wheezing, # 1 EA, 6 Refill(s), Pharmacy: [facility], Asthma, 173, cm, 07/25/22 13:56:00 [...] wheezing, # 1 EA, 6 Refill(s), Pharmacy: [facility], Asthma, 169, cm, 07/02/21 15:31:00 EDT, Height, kg, 07/02/21 15:31:00 EDT, Dosing Weight Start Date: 07/02/21 Stop Date: 01/28/22 Status: Ordered albuterol MDI (90 mcg/inh) CFC free inhalation aerosol (1 source) Start: 07-29-2021 End: 08-28-2021 take 2 puff(s) by inhalation every six hours albuterol MDI (90 mcg/inh) CFC free inhalation aerosol 2 puff(s), Inhalation, q6h, # 18 gram(s), 0 Refill(s), Pharmacy: [facility], Cough with sputum Decreased lung sounds, 169, cm, 07/29/21 13:21:00 EDT, Height Start Date: 07/29/21 Stop Date: 08/28/21 Status: Ordered azithromycin 250 mg oral tablet (20 sources) Macrolide Antimicrobial Start: 08-04-2021 End: 08-10-2021 take 1 tablet by mouth once daily Azithromycin 250 mg tablet Discontinued 250 mg PO DAILY August 04, 2021 12:00am August 10, 2021 11:07am [id number] 0.3 ml EPINEPHrine 1 mg/ml auto-injector (20 sources) alpha-Adrenergic Agonist, beta-Adrenergic Agonist, Catecholamine Start: 02-28-2024 EpiPen 2-Jamal 0.3 mg injectable kit Dose : 0.3 mg =, Subcutaneous, AsDirected, PRN Allergic reaction, # 1 kit(s), 1 Refill(s), Pharmacy: [facility], 170, cm, 02/26/24 12:58:00 EST, Height, kg, 02/26/24 12:58:00 EST, Dosing Weight Start Date: 02/28/24 Status: Ordered Quantity: 1.0 Unit: kit(s) Repeat number: 2 Start: 11-08-2023 EpiPen 2-Jamal 0 .3 mg injectable kit Dose : 0.3 mg =, Subcutaneous, AsDirected, PRN Allergic reaction, # 1 kit(s), 1 Refill(s), Pharmacy: [facility], 170, cm, 09/25/23 13:05:00 EDT, Height, kg, 10/18/23 14:18:00 EDT, Dosing Weight Start Date: 11/08/23 Status: Ordered Start: 07-18-2023 EpiPen 2-Jamal 0 .3 mg injectable kit Dose : 0.3 mg =, Subcutaneous, AsDirected, PRN Allergic reaction, # 1 kit(s), 1 Refill(s), Pharmacy: [facility], 168, cm, 07/07/23 9:06:00 EDT, Height, kg, 07/07/23 9:06:00 EDT, Dosing Weight Start Date: 07/18/23 Status: Ordered Start: 08-16-2022 End: 03-19-2023 EpiPen 2-Jamal 0.3 mg injectab le kit Dose : 0.3 mg =, Subcutaneous, AsDirected, PRN Allergic reaction, # 1 kit(s), 1 Refill(s), 03/19/23 11:00:00 AM EST, Pharmacy: [facility], 173, cm, 08/04/22 13:41:00 EDT, [...] q12h, # 60 tab(s), 3 Refill(s), Pharmacy: [facility], 170, cm, 02/26/24 12:58:00 EST, Height, kg, 02/26/24 12:58:00 EST, Dosing Weight Start Date: 02/28/24 Stop Date: 06/27/24 Status: Ordered Quantity: 60.0 Unit: tab(s) Repeat number: 4 Start: 09-19-2022 Mucinex 600 mg oral tablet, extended release Dose : 600 mg = 1 tab(s), Oral, q12h, # 60 tab(s), 5 Refill(s), Pharmacy: [facility], 173, cm, 08/04/22 13:41:00 EDT, [...] bedtime, # 45 mL, 6 Refill(s), Pharmacy: [facility], 167.6, cm, 08/14/24 18:14:00 EDT, Height, kg, 08/14/24 18:14:00 EDT, Dosing Weight Start Date: 08/16/24 Status: Ordered Quantity: 45.0 Unit: mL Repeat number: 7 Start: 12-14-2023 Lantus Solosta r Pen 100 units/mL 3 mL Pen See Instructions, 60 UNITS TWICE DAILY, # 90 mL, 1 Refill(s), Pharmacy: [facility], 168, cm, 12/13/23 13:57:00 EDT, [...] supply, # 15 mL, 1 Refill(s), Pharmacy: [facility], 173, cm, 10/28/22 13:51:00 EDT, Height, kg, 10/28/22 13:51:00 EDT, Dosing Weight Start Date: 10/28/22 Stop Date: 04/26/23 Status: Ordered Start: 07-02-2021 End: 12-29-2021 inject 1 dose by subcutaneous injection twice daily Lantus Solostar Pen 100 units/mL 3 mL Pen Dose : 60 unit(s) =, Subcutaneous, BID, QS for 30 day supply, # 60 mL, 1 Refill(s), Pharmacy: [facility], 169, cm, 07/02/21 15:31:00 EDT, Height, [...] disease] 05-05-2022 Chronic Comment on above: 09/2021 [facility] FUNCTION: FINDINGS: FVC is reduced to 58, FEV1 reduced to 53 and FEV1/FVC ratio reduced at 70. No significant bronchodilator response. TLC reduced at 67, RV normal at 92, RV/TLC ratio elevated at 44. DLCO normal at 117. 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] Episodic Other aftercare [...] 11-02-2024 Anion gap [Moles/Vol] 10 mmol/L 5-15 [facility] BUN/creatinine ratioOrdered By: BOOGIE ZALDIVAR on 11-02-2024 Urea nitrogen/Creatinine [Mass ratio] 15.5 mg/mg 10-20 [facility] Bilirubin, totalOrdered By: BOOGIE ZALDIVAR on 11-02-2024 Bilirubin [Mass/Vol] 1.75 mg/dL High 0.00-1.30 [facility] Calculated very low density lipoprotein (VLDL) cholesterol measurementOrdered By: BOOGIE ZALDIVAR on 11-02-2024 Calculated very low density lipoprotein (VLDL) cholesterol measurement 17 mg/dL 5-40 [facility] Carbon dioxide, total [Moles /volume] in Central venous bloodOrdered By: BOOGIE ZALDIVAR on 11-02-2024 CO2 [Moles/Vol] 27.0 mmol/L 21.0-32.0 [facility] Chloride assayOrdered By: CASSIE ZALDIVAR on 11-02-2024 Chloride [Moles/Vol] 105 mmol/L 98-108 [facility] Comprehensive Metabolic Prof ilon 11-02-2024 Albumin [Mass/Vol] 4.0 g/dL Normal 3.5-5.0 [facility] Comment on above: Performed By: #### L 501.9985, L500.4050, L506.1001, L500.4100 #### [facility] [address] [place], [address] Albumin/Globulin [Mass ratio] 1.7 {ratio} Normal 0.9-2.4 [facility] Comment on above: Performed By: #### L 501.9985, L500.4050, L506.1001, L500.4100 #### [facility] [address] [place], [address] ALK PHOS 121 U/L Normal 40-129 [facility] Comment on above: Performed By: #### L 501.9985, L500.4050, L506.1001, L500.4100 #### [facility] [address] [place], [address] ALT [Catalytic activity/Vol] 27 U/L Normal <=46 [facility] Comment on above: Performed By: #### L 501.9985, L500.4050, L506.1001, L500.4100 #### [facility] [address] [place], [address] AST [Catalytic activity/Vol] 21 U/L Normal <=37 [facility] Comment on above: Performed By: #### L 501.9985, L500.4050, L506.1001, L500.4100 #### [facility] [address] [place], [address] Bilirubin [Mass/Vol] 1.75 mg/dL High 0.00-1.30 [facility] Comment on above: Performed By: #### L 501.9985, L500.4050, L506.1001, L500.4100 #### [facility] [address] [place], [address] BUN/CRE 15.5 RATIO Normal 10-20 [facility] Comment on above: Performed By: #### L 501.9985, L500.4050, L506.1001, L500.4100 #### [facility] [address] [place], [address] Calcium [Mass/Vol] 8.8 mg/dL Normal 7.6-11.0 [facility] Comment on above: Performed By: #### L 501.9985, L500.4050, L506.1001, L500.4100 #### [facility] [address] [place], [address] Chloride [Moles/Vol] 105 mmol/L Normal 98-108 [facility] Comment on above: Performed By: #### L 501.9985, L500.4050, L506.1001, L500.4100 #### [facility] [address] [place], [address] CO2 [Moles/Vol] 27.0 mmol/L Normal 21.0-32.0 [facility] Comment on above: Performed By: #### L 501.9985, L500.4050, L506.1001, L500.4100 #### [facility] [address] [place], [address] Creatinine [Mass/Vol] 0.80 mg/dL Normal 0.70-1.20 [facility] Comment on above: Performed By: #### L 501.9985, L500.4050, L506.1001, L500.4100 #### [facility] [address] [place], [address] GAP 10 Normal 5-15 [facility] Comment on above: Performed By: #### L 501.9985, L500.4050, L506.1001, L500.4100 #### [facility] [address] [place], [address] GFR/1.73 sq M.predicted among non-blacks MDRD (S/P/Bld) [Vol rate/Area] 105 mL/min/{1.73_m2} Normal >60 [facility] Comment on above: Result Comment: mL/m in/1.73m2 CKD-EPI Creatinine Equation (2020) Performed By: #### L 501.9985, L500.4050, L506.1001, L500.4100 #### [facility] [address] [place], [address] Globulin (S) [Mass/Vol] 2.4 g/dL Normal 2.2-4.2 [facility] Comment on above: Performed By: #### L 501.9985, L500.4050, L506.1001, L500.4100 #### [facility] [address] [place], [address] Glucose [Mass/Vol] 239 mg/dL High 70-99 [facility] Comment on above: Performed By: #### L 501.9985, L500.4050, L506.1001, L500.4100 #### [facility] [address] [place], [address] Potassium [Moles/Vol] 4.1 mmol/L Normal 3.3-5.1 [facility] Comment on above: Performed By: #### L 501.9985, L500.4050, L506.1001, L500.4100 #### [facility] [address] [place], [address] Sodium [Moles/Vol] 141 mmol/L Normal 133-145 [facility] Comment on above: Performed By: #### L 501.9985, L500.4050, L506.1001, L500.4100 #### [facility] [address] [place], [address] T PROT 6.4 g/dL Normal 5.9-8.4 [facility] Comment on above: Performed By: #### L 501.9985, L500.4050, L506.1001, L500.4100 #### [facility] [address] [place], [address] Urea nitrogen [Mass/Vol] 12 mg/dL Normal 4-19 [facility] Comment on above: Performed By: #### L 501.9985, L500.4050, L506.1001, L500.4100 #### [facility] [address] [place], [address] Glomerular filtration rate ( GFR) estimation/1.73 sq m using serum, plasma, or whole bOrdered By: BOOGIE ZALDIVAR on 11-02-2024 GFR/1.73 sq M.predicted among non-blacks MDRD (S/P/Bld) [Vol rate/Area] 105 mL/min/{1.73_m2} >60 [facility] Comment on above: mL/min/1.73m2 CKD-EP I Creatinine Equation (2020) Hemoglobin A1c percentageOrd ered By: BOGOIE ZALDIVAR on 11-02-2024 HbA1c (Bld) [Mass fraction] 10.5 % High <=5.6 [facility] Comment on above: Normal < 5.7 % Predi abetic 5.7 - 6.4 % Diabetic >or= 6.5 % Please note range changes. Result Comment: Norm al < 5.7 % Prediabetic 5.7 - 6.4 % Diabetic >or= 6.5 % Please note range changes. Performed By: #### L 501.9985, L500.4050, L506.1001, L500.4100 #### [facility] [address] [place], [address] LDL calc ser/plasOrdered By: BOOGIE ZALDIVAR on 11-02-2024 Cholesterol in LDL [Mass/Vol] 121 mg/dL [facility] Comment on above: Jebxvtcavh=538-132 m g/dL & Higher Zhjd=826 mg/dL or greaterFriedwald Equation for LDL-C Laboratory - Chemistry and C hemistry - challengeOrdered By: BOOGIE ZALDIVAR on 11-02-2024 AST [Catalytic activity/Vol] 21 U/L <38 [facility] Lipid Profileon 11-02-2024 CHOL:HDL 4.28 Normal [facility] Comment on above: Performed By: #### L 501.9985, L500.4050, L506.1001, L500.4100 #### [facility] [address] [place], [address] Cholesterol [Mass/Vol] 180 mg/dL Normal <=200 [facility] Comment on above: Result Comment: Chol esterol level, Desirable <200 mg/dL Borderline high cholesterol 200-239 mg/dL High cholesterol >=240 mg/dL Recommendations of the NCEP Adult Treatment Panel for the following risk-cutoff thresholds for the [place] population. Performed By: #### L 501.9985, L500.4050, L506.1001, L500.4100 #### [facility] [address] [place], [address] Cholesterol in HDL [Mass/Vol] 42 mg/dL Normal [facility] Comment on above: Result Comment: Liza onal Cholesterol Education Program (NCEP) guidelines: <40 mg/dL: Low HDL-cholesterol (major risk factor for CHD) >= 60 mg/dL: High HDL-cholesterol (negative risk factor for CHD) HDL-cholesterol is affected by a number of factors, e.g. smoking, exercise, hormones, sex and age. Performed By: #### L 501.9985, L500.4050, L506.1001, L500.4100 #### [facility] [address] [place], [address] Cholesterol in LDL [Mass/Vol] 121 mg/dL Normal [facility] Comment on above: Result Comment: Bord ohhisb=306-025 mg/dL Higher Iknl=540 mg/dL or greater Friedwald Equation for LDL-C Performed By: #### L 501.9985, L500.4050, L506.1001, L500.4100 #### [facility] [address] [place], [address] Cholesterol in VLDL [Mass/Vol] 17 mg/dL Normal 5-40 [facility] Comment on above: Performed By: #### L 501.9985, L500.4050, L506.1001, L500.4100 #### [facility] [address] [place], [address] Triglyceride [Mass/Vol] 84 mg/dL Normal [facility] Comment on above: Result Comment: The drugs N-Acetylcysteine and Metamizole may falsely depress this assay. Normal range: <150 mg/dL Borderline High: 150-199 mg/dL High: 200-499 mg/dL Very High: >500 mg/dL Performed By: #### L 501.9985, L500.4050, L506.1001, L500.4100 #### [facility] [address] [place], [address] Potassium measurement (mass/ volume)Ordered By: BOOGIE ZALDIVAR on 11-02-2024 Potassium (Unsp spec) [Mass/Vol] 4.1 mmol/L 3.3-5.1 [facility] Screening total cholesterol/ high density lipoprotein (HDL) cholesterol ratioOrdered By: BOOGIE ZALDIVAR on 11-02-2024 Cholesterol.total/Jyothi sterol in HDL [Mass ratio] 4.28 {ratio} [facility] Serum creatinine measurement (mass/volume)Ordered By: BOOGIE ZALDIVAR on 11-02-2024 Creatinine [Mass/Vol] 0.80 mg/dL 0.70-1.20 [facility] Serum globulin measurementOr dered By: BOOGIE ZALDIVAR on 11-02-2024 Globulin (S) [Mass/Vol] 2.4 g/dL 2.2-4.2 [facility] Serum glucose measurement (m ass/volume)Ordered By: BOOGIE ZALDIVAR on 11-02-2024 Glucose [Mass/Vol] 239 mg/dL High 70-99 [facility] Serum or plasma alanine troy otransferase (ALT) measurementOrdered By: BOOGIE ZALDIVAR on 11-02-2024 ALT [Catalytic activity/Vol] 27 U/L <47 [facility] Serum or plasma albumin david urement (mass/volume)Ordered By: BOOGIE ZALDIVAR 11-02-2024 Albumin [Mass/Vol] 4.0 g/dL 3.5-5.0 [facility] Serum or plasma albumin/glob ulin mass ratioOrdered By: BOOGIE ZALDIVAR 11-02-2024 Albumin/Globulin [Mass ratio] 1.7 {ratio} 0.9-2.4 [facility] Serum or plasma alkaline srikanth sphatase measurementOrdered By: BOOGIE ZALDIVAR 11-02-2024 ALP [Catalytic activity/Vol] 121 U/L 40-129 [facility] Serum or plasma calcium david urement (mass/volume)Ordered By: BOOGIE ZALDIVAR 11-02-2024 Calcium [Mass/Vol] 8.8 mg/dL 7.6-11.0 [facility] Serum or plasma cholesterol in HDL measurement (mass/volume)Ordered By: BOOGIE ZALDIVAR 11-02-2024 Cholesterol in HDL [Mass/Vol] 42 mg/dL >40 [facility] Comment on above: National Cholesterol Education Program (NCEP) guidelines:<40 mg/dL: Low HDL-cholesterol (major risk factor for CHD)>= 60 mg/dL: High HDL-cholesterol (negative risk factor for CHD)HDL-cholesterol is affected by a number of factors, e.g. smoking, exercise, hormones, sex and age. Serum or plasma cholesterol measurement (mass/volume)Ordered By: BOOGIE ZALDIVAR 11-02-2024 Cholesterol [Mass/Vol] 180 mg/dL <201 [facility] Comment on above: Cholesterol level, D esirable <200 mg/dLBorderline high cholesterol 200-239 mg/dLHigh cholesterol >=240 mg/dLRecommendations of the NCEP Adult Treatment Panel for the following risk-cutoff thresholds for the [place] population. Serum or plasma urea nitroge n measurement (mass/volume)Ordered By: BOOGIE ZALDIVAR on 11-02-2024 Urea nitrogen [Mass/Vol] 12 mg/dL 4-19 [facility] Sodium levelOrdered By: FAY ZALDIVAR on 11-02-2024 Sodium [Moles/Vol] 141 mmol/L 133-145 [facility] Total proteinOrdered By: BERNIE ZALDIVAR on 11-02-2024 Protein [Mass/Vol] 6.4 g/dL 5.9-8.4 [facility] Triglycerides measurementOrd ered By: BOOGIE ZALDIVAR on 11-02-2024 Triglyceride [Mass/Vol] 84 mg/dL <199 [facility] Comment on above: The drugs N-Acetylcy steine and Metamizole may falsely depress this assay. Normal range: <150 mg/dLBorderline High: 150-199 mg/dLHigh: 200-499 mg/dLVery High: >500 mg/dL Vitamin D,25 Hydroxyon 11-02 Vitamin D 25-OH 21.7 ng/mL Low 30-100 [facility] Comment on above: Result Comment: Ester min D Status Deficiency: <20 ng/mL (50nmol/L) Insufficiency: 20-30 ng/mL (50-75 nmol/L) Sufficiency: 30-100 ng/mL (75-250 nmol/L) Toxicity: >100 ng/mL (>250 nmol/L) Performed By: #### L 501.9985, L500.4050, L506.1001, L500.4100 #### [facility] [place], [address] Albumin to globulin ratioOrd ered By: BOOGIE ZALDIVAR on 04-29-2024 Albumin/Globulin [Mass ratio] 0.9 {ratio} 0.9-2.4 [facility] Bilirubin, totalOrdered By: BOOGIE ZALDIVAR on 04-29-2024 Bilirubin [Mass/Vol] 1.90 mg/dL High 0.20-1.00 [facility] Comment on above: For patients on eltr ombopag therapy, use of Dimension Garnett TBIL is not recommended. Blood urea nitrogen (BUN)/cr eatinine ratioOrdered By: BOOGIE ZALDIVAR on 04-29-2024 Urea nitrogen/Creatinine [Mass ratio] 21.1 mg/mg High 10-20 [facility] Carbon dioxide measurementOr dered By: BOOGIE ZALDIVAR on 04-29-2024 CO2 [Moles/Vol] 27.0 mmol/L 21.0-32.0 [facility] Chloride measurementOrdered By: BOOGIE ZALDIVAR on 04-29-2024 Chloride [Moles/Vol] 106 mmol/L 98-107 [facility] Comprehensive Metabolic Prof ilon 04-29-2024 Albumin [Mass/Vol] 3.3 g/dL Normal 3.2-5.0 [facility] Comment on above: Performed By: #### L 500.4050, L501.9985, L501.9910, L500.4100, L502.0250 #### [facility] [address] [place], [address] Albumin/Globulin [Mass ratio] 0.9 {ratio} Normal 0.9-2.4 [facility] Comment on above: Performed By: #### L 500.4050, L501.9985, L501.9910, L500.4100, L502.0250 #### [facility] [address] [place], [address] ALK P 128 U/L High 45-117 [facility] Comment on above: Performed By: #### L 500.4050, L501.9985, L501.9910, L500.4100, L502.0250 #### [facility] [address] [place], [address] ALT [Catalytic activity/Vol] 38 U/L Normal 16-61 [facility] Comment on above: Performed By: #### L 500.4050, L501.9985, L501.9910, L500.4100, L502.0250 #### [facility] [address] [place], [address] AST [Catalytic activity/Vol] 20 U/L Normal 15-37 [facility] Comment on above: Performed By: #### L 500.4050, L501.9985, L501.9910, L500.4100, L502.0250 #### [facility] [address] [place], [address] Bilirubin [Mass/Vol] 1.90 mg/dL High 0.20-1.00 [facility] Comment on above: Result Comment: For patients on eltrombopag therapy, use of Dimension Garn[place] TBIL is not recommended. Performed By: #### L 500.4050, L501.9985, L501.9910, L500.4100, L502.0250 #### [facility] [address] [place], [address] BUN/CRE 21.1 RATIO High 10-20 [facility] Comment on above: Performed By: #### L 500.4050, L501.9985, L501.9910, L500.4100, L502.0250 #### [facility] [address] [place], [address] CA,Total 8.7 mg/dL Normal 8.5-10.1 [facility] Comment on above: Performed By: #### L 500.4050, L501.9985, L501.9910, L500.4100, L502.0250 #### [facility] [address] [place], [address] Chloride [Moles/Vol] 106 mmol/L Normal 98-107 [facility] Comment on above: Performed By: #### L 500.4050, L501.9985, L501.9910, L500.4100, L502.0250 #### [facility] [address] [place], [address] CO2 [Moles/Vol] 27.0 mmol/L Normal 21.0-32.0 [facility] Comment on above: Performed By: #### L 500.4050, L501.9985, L501.9910, L500.4100, L502.0250 #### [facility] [address] [place], [address] Creatinine [Mass/Vol] 0.85 mg/dL Normal 0.70-1.30 [facility] Comment on above: Result Comment: The validity of the calculated GFR GFRAA in patients over 70 years has not been determined. Clinical correlation is essential. Performed By: #### L 500.4050, L501.9985, L501.9910, L500.4100, L502.0250 #### [facility] [address] [place], [address] EST GFR - AA 120 mL/min Normal >60 [facility] Comment on above: Result Comment: Afri can [place] GFR Calc Performed By: #### L 500.4050, L501.9985, L501.9910, L500.4100, L502.0250 #### [facility] [address] [place], [address] GAP 8 Normal 5-15 [facility] Comment on above: Performed By: #### L 500.4050, L501.9985, L501.9910, L500.4100, L502.0250 #### [facility] [address] [place], [address] GFR/1.73 sq M.predicted among non-blacks MDRD (S/P/Bld) [Vol rate/Area] 99 mL/min/{1.73_m2} Normal >60 [facility] Comment on above: Result Comment: Non- GFR Calc Performed By: #### L 500.4050, L501.9985, L501.9910, L500.4100, L502.0250 #### [facility] [address] [place], [address] Globulin (S) [Mass/Vol] 3.6 g/dL Normal 2.2-4.2 [facility] Comment on above: Performed By: #### L 500.4050, L501.9985, L501.9910, L500.4100, L502.0250 #### [facility] [address] [place], [address] Glucose [Mass/Vol] 175 mg/dL High 74-106 [facility] Comment on above: Result Comment: Fast ing Glucose result greater than or equal to 126 mg/dL suggests DIABETES MELLITUS per A.D.A. criteria. Performed By: #### L 500.4050, L501.9985, L501.9910, L500.4100, L502.0250 #### [facility] [address] [place], [address] Potassium [Moles/Vol] 3.8 mmol/L Normal 3.5-5.1 [facility] Comment on above: Performed By: #### L 500.4050, L501.9985, L501.9910, L500.4100, L502.0250 #### [facility] [address] [place], [address] Sodium [Moles/Vol] 141 mmol/L Normal 136-145 [facility] Comment on above: Performed By: #### L 500.4050, L501.9985, L501.9910, L500.4100, L502.0250 #### [facility] [address] [place], [address] T PROT 6.9 g/dL Normal 6.4-8.2 [facility] Comment on above: Performed By: #### L 500.4050, L501.9985, L501.9910, L500.4100, L502.0250 #### [facility] [address] [place], [address] Urea nitrogen [Mass/Vol] 18 mg/dL Normal 7-18 [facility] Comment on above: Performed By: #### L 500.4050, L501.9985, L501.9910, L500.4100, L502.0250 #### [facility] [address] [place], [place], [id number] Glomerular filtration rate ( GFR) estimationOrdered By: BOOGIE ZALDIVAR on 04-29-2024 GFR/1.73 sq M.predicted among non-blacks MDRD (S/P/Bld) [Vol rate/Area] 99 mL/min/{1.73_m2} >60 [facility] Comment on above: Non- GFR Calc Glucose measurementOrdered B y: BOOGIE ZALDIVAR on 04-29-2024 Glucose [Mass/Vol] 175 mg/dL High 74-106 [facility] Comment on above: Fasting Glucose resu lt greater than or equal to 126 mg/dL suggests DIABETES MELLITUS per A.D.A. criteria. Hemoglobin A1con 04-29-2024 HbA1c (Bld) [Mass fraction] 9.5 % High 3.8-5.6 [facility] Comment on above: Result Comment: Norm al < 5.7 % Prediabetic 5.7 - 6.4 % Diabetic >or= 6.5 % Please note range changes. Performed By: #### L 500.4050, L501.9985, L501.9910, L500.4100, L502.0250 #### [facility] [address] [place], [place], [id number] Hemoglobin A1c percentageOrd ered By: BOOGIE ZALDIVAR on 04-29-2024 HbA1c (Bld) [Mass fraction] 9.5 % High 3.8-5.6 [facility] Comment on above: Normal < 5.7 % Predi abetic 5.7 - 6.4 % Diabetic >or= 6.5 % Please note range changes. High density lipoprotein (HD L) measurementOrdered By: BOOGIE ZALDIVAR on 04-29-2024 Cholesterol in HDL [Mass/Vol] 51 mg/dL >40 [facility] Comment on above: The drugs N-Acetylcy steine and Metamizole may falsely depress this assay. Reference Range HDL <40 mg/dL Low HDL Cholesterol HDL >or= 60 mg/dL High HDL Cholesterol Laboratory - Chemistry and C hemistry - challengeOrdered By: BOOGIE ZALDIVAR on 04-29-2024 AST [Catalytic activity/Vol] 20 U/L 15-37 [facility] Lipid Profileon 04-29-2024 Cholesterol [Mass/Vol] 191 mg/dL Normal 200 [facility] Comment on above: Result Comment: <200 mg/dL Desirable 200-240 mg/dL Borderline >240 mg/dL High Risk Performed By: #### L 500.4050, L501.9985, L501.9910, L500.4100, L502.0250 #### [facility] [address] [place], [address] Cholesterol in HDL [Mass/Vol] 51 mg/dL Normal [facility] Comment on above: Result Comment: The drugs N-Acetylcysteine and Metamizole may falsely depress this assay. Reference Range HDL <40 mg/dL Low HDL Cholesterol HDL >or= 60 mg/dL High HDL Cholesterol Performed By: #### L 500.4050, L501.9985, L501.9910, L500.4100, L502.0250 #### [facility] [address] [place], [address] Cholesterol in LDL [Mass/Vol] 121 mg/dL Normal 0-130 [facility] Comment on above: Performed By: #### L 500.4050, L501.9985, L501.9910, L500.4100, L502.0250 #### [facility] [address] [place], [address] Cholesterol in VLDL [Mass/Vol] 19 mg/dL Normal 5-40 [facility] Comment on above: Performed By: #### L 500.4050, L501.9985, L501.9910, L500.4100, L502.0250 #### [facility] [address] [place], [place], [id number] Triglyceride [Mass/Vol] 97 mg/dL Normal [facility] Comment on above: Result Comment: The drugs N-Acetylcysteine and Metamizole may falsely depress this assay. Serum Triglycerides Reference Interval Normal <150 mg/dL Borderline high 150 - 199 mg/dL High 200 - 499 mg/dL Very High > or = 500 mg/dL Performed By: #### L 500.4050, L501.9985, L501.9910, L500.4100, L502.0250 #### [facility] [address] [place], [address] Low density lipoprotein (LDL ) cholesterol measurementOrdered By: BOOGIE ZALDIVAR on 04-29-2024 Cholesterol in LDL [Mass/Vol] 121 mg/dL 0-130 [facility] Microalb:Creat Ratio,Random URon 04-29-2024 Creatinine [Mass/Vol] 173.00 mg/dL Normal NO RAN GE EST. [facility] Comment on above: Performed By: #### L 500.4050, L501.9985, L501.9910, L500.4100, L502.0250 #### [facility] [address] [place], [address] MALB:CRE 23.4 mg/g CRE Normal <30 mg/g CRE [facility] [facility] Comment on above: Performed By: #### L 500.4050, L501.9985, L501.9910, L500.4100, L502.0250 #### [facility] [address] [place], [address] MICROALBUMIN,UR 40.5 mg/L Normal NO RANGE EST. [facility] Comment on above: Performed By: #### L 500.4050, L501.9985, L501.9910, L500.4100, L502.0250 #### [facility] [address] [place], [address] PSA,Total - Annual Screenon 04-29-2024 PSA,TOT SCREEN 0.84 ng/mL Normal 0.00-4.00 [facility] Comment on above: Result Comment: This test was performed using the TPSA assay method for the [employer] chemistry system. Values obtained with different assay methods cannot be used interchangably. When changing PSA assays in the course of monitoring a patient, additional sequential testing should be carried out to confirm baseline values. Performed By: #### L 500.4050, L501.9985, L501.9910, L500.4100, L502.0250 #### [facility] [address] [place], [address] Potassium measurementOrdered By: BOOGIE ZALDIVAR on 04-29-2024 Potassium [Moles/Vol] 3.8 mmol/L 3.5-5.1 [facility] Serum anion gap measurementO rdered By: BOOGIE ZALDIVAR on 04-29-2024 Anion gap [Moles/Vol] 8 mmol/L 5-15 [facility] Serum globulin measurementOr dered By: BOOGIE ZALDIVAR on 04-29-2024 Globulin (S) [Mass/Vol] 3.6 g/dL 2.2-4.2 [facility] Serum or plasma alanine troy otransferase (ALT) measurementOrdered By: BOOGIE ZALDIVAR on 04-29-2024 ALT [Catalytic activity/Vol] 38 U/L 16-61 [facility] Serum or plasma albumin david urement (mass/volume)Ordered By: BOOGIE ZALDIVAR 04-29-2024 Albumin [Mass/Vol] 3.3 g/dL 3.2-5.0 [facility] Serum or plasma alkaline srikanth sphatase measurementOrdered By: BOOGIE KAYLEY 04-29-2024 ALP [Catalytic activity/Vol] 128 U/L High 45-117 [facility] Serum or plasma calcium david urement (mass/volume)Ordered By: BOOGIE ZALDIVAR 04-29-2024 Calcium [Mass/Vol] 8.7 mg/dL 8.5-10.1 [facility] Serum or plasma cholesterol measurement (mass/volume)Ordered By: BOOGIE ZALDIVAR 04-29-2024 Cholesterol [Mass/Vol] 191 mg/dL <200 [facility] [place] Comment on above: <200 mg/dL Desirable 200-240 mg/dL Borderline >240 mg/dL High Risk Serum or plasma creatinine m easurement (mass/volume)Ordered By: BOOGIE ZALDIVAR on 04-29-2024 Creatinine [Mass/Vol] 0.85 mg/dL 0.70-1.30 [facility] Comment on above: The validity of the calculated GFR & GFRAA in patients over 70 years has not been determined. Clinical correlation is essential. Serum or plasma urea nitroge n measurement (mass/volume)Ordered By: BOOGIE ZALDIVAR on 04-29-2024 Urea nitrogen [Mass/Vol] 18 mg/dL 7-18 [facility] Sodium levelOrdered By: FAY ZALDIVAR on 04-29-2024 Sodium [Moles/Vol] 141 mmol/L 136-145 [facility] Total proteinOrdered By: BERNIE ZALIDVAR on 04-29-2024 Protein [Mass/Vol] 6.9 g/dL 6.4-8.2 [facility] Triglycerides measurementOrd ered By: BOOGIE ZALDIVAR on 04-29-2024 Triglyceride [Mass/Vol] 97 mg/dL <199 [facility] Comment on above: The drugs N-Acetylcy steine and Metamizole may falsely depress this assay.Serum Triglycerides Reference Interval Normal <150 mg/dL Borderline high 150 - 199 mg/dL High 200 - 499 mg/dL Very High > or = 500 mg/dL Urine creatinine measurement (mass/volume)Ordered By: BOOGIE ZALDIVAR on 04-29-2024 Creatinine (U) [Mass/Vol] 173.00 mg/dL NO RANGE EST. [facility] Very low density lipoprotein (VLDL) cholesterol measurementOrdered By: BOOGIE ZALDIVAR on 04-29-2024 Very low density lipoprotein (VLDL) cholesterol measurement 19 mg/dL 5-40 [facility] LABORATORYOrdered By: Elton son on 02-19-2024 Group [...] Strep PCR Not detected Normal Not Detected [facility] Comment on above: Performed By: #### S CARLOS #### [facility] [address] [place] [id number] Group A Strep PCR Int Normal [facility] Comment on above: Result Comment: Nega tive [...] Interp Performed By: #### S CARLOS #### [facility] [address] [place], [place] [address] Basophil percentageOrdered B y: David Cummins on 06-15-2023 Bilirubin [Mass/Vol] 1.70 mg/dL 0.20-1.00 [facility] Comment on above: For patients on eltr ombopag therapy, use of Dimension [place] TBIL is not recommended. Chloride [Moles/Vol] 108 mmol/L 98-107 [facility] Glucose [Mass/Vol] 226 mg/dL 74-106 [facility] Comment on above: Glucose result great er than or equal to 200 mg/dLsuggests DIABETES MELLITUS per A.D.A. criteria. Potassium [Moles/Vol] 3.7 mmol/L 3.5-5.1 [facility] Protein [Mass/Vol] 6.8 g/dL 6.4-8.2 [facility] Sodium [Moles/Vol] 139 mmol/L 136-145 [facility] Laboratory - Chemistry and C hemistry - challengeOrdered By: David Cummins on 06-15-2023 Albumin/Globulin [Mass ratio] 1.1 {ratio} 0.9-2.4 [facility] ALP [Catalytic activity/Vol] 112 U/L 45-117 [facility] ALT [Catalytic activity/Vol] 28 U/L 16-61 [facility] CO2 [Moles/Vol] 25.0 mmol/L 21.0-32.0 [facility] Globulin (S) [Mass/Vol] 3.3 g/dL 2.2-4.2 [facility] Urea nitrogen/Creatinine [Mass ratio] 10.4 mg/mg 10-20 [facility] No Panel InformationOrdered By: David Cummins on 06-15-2023 Estimated GFR (MDRD) Amer 136 mL/min >60 [facility] Comment on above: GFR Calc Estimated GFR (MDRD) Non-Af Amer 113 mL/min >60 [facility] Comment on above: Non- GFR Calc Urine Microalbumin/Creatinine Ratio 19.3 mg/g CRE <30 [facility] Serum or plasma calcium david urement (mass/volume)Ordered By: David Cummins on 06-15-2023 Calcium [Mass/Vol] 8.4 mg/dL 8.5-10.1 [facility] Serum or plasma creatinine m easurement (mass/volume)Ordered By: David Cummins on 06-15-2023 Creatinine [Mass/Vol] 0.77 mg/dL 0.70-1.30 [facility] Comment on above: The validity of the calculated GFR & GFRAA in patients over 70 years has not been determined. Clinical correlation is essential. Serum or plasma urea nitroge n measurement (mass/volume)Ordered By: David Cummins on 06-15-2023 Urea nitrogen [Mass/Vol] 8 mg/dL 7-18 [facility] Thin prep Papanicolaou smear with manual screeningOrdered By: David Cummins on 06-15-2023 Thin prep Papanicolaou smear with manual screening 3.5 g/dL 3.2-5.0 [facility] Thin prep Papanicolaou smear with manual screening 17 U/L 15-37 [facility] Thin prep Papanicolaou smear with manual screening 6 5-15 [facility] Thin prep Papanicolaou smear with manual screening 31.4 mg/L NO RANGE EST. [facility] Urine creatinine measurement (mass/volume)Ordered By: David Cummins on 06-15-2023 Creatinine (U) [Mass/Vol] 163.00 mg/dL NO RANGE EST. [facility] Whole blood hemoglobin A1c/t otal hemoglobin ratio (mass fraction)Ordered By: David Cummins on 06-15-2023 HbA1c (Bld) [Mass fraction] 9.0 % 3.8-5.6 [facility] Comment on above: Normal < 5.7 % Predi abetic 5.7 - 6.4 % Diabetic >or= 6.5 % Please note range changes. .Auto Diffon 12-08-2022 Basophil, Absolute 0.1 10 3/mcL Normal 0.0-0.3 [facility] [place] Comment on above: Performed By: #### P HOS, CKMB, CKMBM, MG, TROPHS #### [facility] [address] [place] [address] Basophils/100 WBC (Bld) 0.7 % Normal 0.0-2.5 [facility] ([place]) Comment on above: Performed By: #### P HOS, CKMB, CKMBM, MG, TROPHS #### [address] [address] Eosinophil, Absolute 0.4 10 3/mcL Normal 0.0-0.7 [facility] ([place] Comment on above: Performed By: #### P HOS, CKMB, CKMBM, MG, TROPHS #### [address] [address] Eosinophils/100 WBC (Bld) 3.9 % Normal 0.0-6.0 [facility] ([place]) Comment on above: Performed By: #### P HOS, CKMB, CKMBM, MG, TROPHS #### [address] [address] Lymphocyte, Absolute 0.8 10 3/mcL Low 0.9-4.3 [facility] ([place] Comment on above: Performed By: #### P HOS, CKMB, CKMBM, MG, TROPHS #### [address] [address] Lymphocytes/100 WBC (Bld) 8.4 % Low 20.0-40.0 [facility] ([place] Comment on above: Performed By: #### P HOS, CKMB, CKMBM, MG, TROPHS #### [address] [address] Monocyte, Absolute 0.8 10 3/mcL Normal 0.1-1.4 [facility] [place] Comment on above: Performed By: #### P HOS, CKMB, CKMBM, MG, TROPHS #### [address] [address] Monocytes/100 WBC (Bld) 8.1 % Normal 2.0-13.0 [facility] ([place]) Comment on above: Performed By: #### P HOS, CKMB, CKMBM, MG, TROPHS #### [address] [address] Neutrophils/100 WBC (Bld) 78.9 % High 50.0-75.0 [facility] ([place] Comment on above: Performed By: #### P HOS, CKMB, CKMBM, MG, TROPHS #### [address] [address] .GFRon 12-08-2022 GFR >60 Normal [facility] [place] Comment on above: Result Comment: GFR Population [...] P HOS, CKMB, CKMBM, MG, TROPHS #### [place] [address] GFR Non- >60 Normal [facility] ([place]) Comment on above: Result Comment: GFR Population [...] P HOS, CKMB, CKMBM, MG, TROPHS #### [address] [address] .NEUABSon 12-08-2022 Neutrophil, Absolute 7.6 10 3/mcL Normal 2.3-8.1 [facility] ([place] Comment on above: Performed By: #### P HOS, CKMB, CKMBM, MG, TROPHS #### [address] [address] BMPon 12-08-2022 BUN/Creatinine Ratio 20.6 ratio Normal 10.0-22.0 [facility] [place] Comment on above: Performed By: #### P HOS, CKMB, CKMBM, MG, TROPHS #### [place] [id number] Calcium [Mass/Vol] 8.9 mg/dL Normal 8.7-10.4 [facility] ([place]) Comment on above: Performed By: #### P HOS, CKMB, CKMBM, MG, TROPHS #### [place] [address] Chloride [Moles/Vol] 106 mmol/L Normal 98-110 [facility] [place] Comment on above: Performed By: #### P HOS, CKMB, CKMBM, MG, TROPHS #### [place] [address] CO2 [Moles/Vol] 32 mmol/L Normal 22-32 [facility] ([place] Comment on above: Performed By: #### P HOS, CKMB, CKMBM, MG, TROPHS #### [place] [address] Creatinine [Mass/Vol] 0.68 mg/dL Normal 0.60-1.40 [facility] ([place]) Comment on above: Performed By: #### P HOS, CKMB, CKMBM, MG, TROPHS #### [address] [address] Electrolyte Balance 1.0 mEq/L Low 4.0-15.0 [facility] ([place]) Comment on above: Performed By: #### P HOS, CKMB, CKMBM, MG, TROPHS #### [place] [id number] Glucose [Mass/Vol] 202 mg/dL High 70-110 [facility] ([place] Comment on above: Performed By: #### P HOS, CKMB, CKMBM, MG, TROPHS #### [place] [address] Potassium [Moles/Vol] 4.6 mmol/L Normal 3.5-5.0 [facility] ([place] Comment on above: Performed By: #### P HOS, CKMB, CKMBM, MG, TROPHS #### [place] [address] Sodium [Moles/Vol] 139 mmol/L Normal 136-145 [facility] ([place] Comment on above: Performed By: #### P HOS, CKMB, CKMBM, MG, TROPHS #### [place] [address] Urea nitrogen [Mass/Vol] 14.0 mg/dL Normal 8.0-22.0 [facility] ([place]) Comment on above: Performed By: #### P HOS, CKMB, CKMBM, MG, TROPHS #### [place] [address] CBCon 12-08-2022 Erythrocyte distribution width (RBC) [Ratio] 13.8 % Normal 11.5-15.5 [facility] ([place] Comment on above: Performed By: #### P HOS, CKMB, CKMBM, MG, TROPHS #### [place] [address] Hematocrit (Bld) [Volume fraction] 39.4 % Low 40.0-52.0 [facility] ([place] Comment on above: Performed By: #### P HOS, CKMB, CKMBM, MG, TROPHS #### [place] [address] Hgb 13.3 G/dL Normal 13.0-17.5 [facility] ([place] Comment on above: Performed By: #### P HOS, CKMB, CKMBM, MG, TROPHS #### [place] [address] MCH (RBC) [Entitic mass] 28.8 pg Normal 27.0-33.0 [facility] ([place]) Comment on above: Performed By: #### P HOS, CKMB, CKMBM, MG, TROPHS #### [place] [address] MCHC 33.9 G/dL Normal 32.0-36.0 [facility] ([place] Comment on above: Performed By: #### P HOS, CKMB, CKMBM, MG, TROPHS #### [place] [address] MCV (RBC) [Entitic vol] 84.8 fL Normal 81.0-100.0 [facility] ([place] Comment on above: Performed By: #### P HOS, CKMB, CKMBM, MG, TROPHS #### [place] [address] Platelet 275 10 3/mcL Normal 150-450 [facility] ([place]) Comment on above: Performed By: #### P HOS, CKMB, CKMBM, MG, TROPHS #### [place] [address] Platelet mean volume (Bld) [Entitic vol] 9.2 fL Normal 6.4-10.5 [facility] ([place] Comment on above: Performed By: #### P HOS, CKMB, CKMBM, MG, TROPHS #### [place] [address] RBC 4.64 10 6/mcL Normal 4.50-6.00 [facility] ([place] Comment on above: Performed By: #### P HOS, CKMB, CKMBM, MG, TROPHS #### [place] [address] WBC 9.7 10 3/mcL Normal 4.5-10.8 [facility] ([place] Comment on above: Performed By: #### P HOS, CKMB, CKMBM, MG, TROPHS #### [place] [address] LABORATORYOrdered By: Juan David Wells on 12-08-2022 Blood Glucose Testing Reason Routine (12/08/22 12:04 PM) [facility] Work Phone: Glucose [Mass/Vol] 268 mg/dL Invalid Interpretation Code 70 - 110 mg/dL [facility] Work Phone: LABORATORYOrdered By: Ignacia Lopez on 12-08-2022 Blood Glucose Testing Reason Routine (12/08/22 8:35 AM) [facility] Work Phone: Glucose [Mass/Vol] 192 mg/dL Invalid Interpretation Code 70 - 110 mg/dL [facility] Work Phone: LABORATORYOrdered By: SYSTEM SYSTEM [...] Informationon 12-08 GS Rare Gram Positive Cocci [facility] Work Phone: .Auto Diffon 12-07-2022 Basophil, Absolute 0.1 10 3/mcL Normal 0.0-0.3 [facility] [place] Comment on above: Performed By: #### P HOS, CKMB, CKMBM, MG, TROPHS #### [address] [address] Basophils/100 WBC (Bld) 0.4 % Normal 0.0-2.5 [facility] ([place] Comment on above: Performed By: #### P HOS, CKMB, CKMBM, MG, TROPHS #### [address] [address] Eosinophil, Absolute 0.3 10 3/mcL Normal 0.0-0.7 [facility] ([place] Comment on above: Performed By: #### P HOS, CKMB, CKMBM, MG, TROPHS #### [address] [address] Eosinophils/100 WBC (Bld) 2.1 % Normal 0.0-6.0 [facility] ([place]) Comment on above: Performed By: #### P HOS, CKMB, CKMBM, MG, TROPHS #### [address] [address] Lymphocyte, Absolute 1.0 10 3/mcL Normal 0.9-4.3 [facility] ([place] Comment on above: Performed By: #### P HOS, CKMB, CKMBM, MG, TROPHS #### [address] [address] Lymphocytes/100 WBC (Bld) 7.4 % Low 20.0-40.0 [facility] ([place] Comment on above: Performed By: #### P HOS, CKMB, CKMBM, MG, TROPHS #### [address] [address] Monocyte, Absolute 0.9 10 3/mcL Normal 0.1-1.4 [facility] [place] Comment on above: Performed By: #### P HOS, CKMB, CKMBM, MG, TROPHS #### [address] [address] Monocytes/100 WBC (Bld) 7.1 % Normal 2.0-13.0 [facility] ([place] Comment on above: Performed By: #### P HOS, CKMB, CKMBM, MG, TROPHS #### [address] [address] Neutrophils/100 WBC (Bld) 83.0 % High 50.0-75.0 [facility] ([place]) Comment on above: Performed By: #### P HOS, CKMB, CKMBM, MG, TROPHS #### [address] [address] .GFRon 12-07-2022 GFR >60 Normal [facility] [place] Comment on above: Result Comment: GFR Population [...] P HOS, CKMB, CKMBM, MG, TROPHS #### [address] [address] GFR Non- >60 Normal [facility] ([place]) Comment on above: Result Comment: GFR Population [...] P HOS, CKMB, CKMBM, MG, TROPHS #### [address] [address] .NEUABSon 12-07-2022 Neutrophil, Absolute 10.8 10 3/mcL High 2.3-8.1 [facility] ([place] Comment on above: Performed By: #### P HOS, CKMB, CKMBM, MG, TROPHS #### [address] [address] [facility] BUN/Creatinine Ratio 22.4 ratio High 10.0-22.0 [facility] [place] Comment on above: Performed By: #### P HOS, CKMB, CKMBM, MG, TROPHS #### [address] [address] Calcium [Mass/Vol] 8.8 mg/dL Normal 8.7-10.4 [facility] ([place]) Comment on above: Performed By: #### P HOS, CKMB, CKMBM, MG, TROPHS #### [address] [address] Chloride [Moles/Vol] 101 mmol/L Normal 98-110 [facility] [place] Comment on above: Performed By: #### P HOS, CKMB, CKMBM, MG, TROPHS #### [address] [address] CO2 [Moles/Vol] 28 mmol/L Normal 22-32 [facility] ([place]) Comment on above: Performed By: #### P HOS, CKMB, CKMBM, MG, TROPHS #### [address] [address] Creatinine [Mass/Vol] 0.76 mg/dL Normal 0.60-1.40 [facility] ([place]) Comment on above: Performed By: #### P HOS, CKMB, CKMBM, MG, TROPHS #### [address] [address] Electrolyte Balance 7.0 mEq/L Normal 4.0-15.0 [facility] ([place] Comment on above: Performed By: #### P HOS, CKMB, CKMBM, MG, TROPHS #### [address] [address] Glucose [Mass/Vol] 212 mg/dL High 70-110 [facility] ([place]) Comment on above: Performed By: #### P HOS, CKMB, CKMBM, MG, TROPHS #### [place] [address] Potassium [Moles/Vol] 4.6 mmol/L Normal 3.5-5.0 [facility] ([place]) Comment on above: Performed By: #### P HOS, CKMB, CKMBM, MG, TROPHS #### [place] [id number] Sodium [Moles/Vol] 136 mmol/L Normal 136-145 [facility] ([place]) Comment on above: Performed By: #### P HOS, CKMB, CKMBM, MG, TROPHS #### [place] [address] Urea nitrogen [Mass/Vol] 17.0 mg/dL Normal 8.0-22.0 [facility] ([place]) Comment on above: Performed By: #### P HOS, CKMB, CKMBM, MG, TROPHS #### [place] [address] CBCon 12-07-2022 Erythrocyte distribution width (RBC) [Ratio] 13.7 % Normal 11.5-15.5 [facility] ([place]) Comment on above: Performed By: #### P HOS, CKMB, CKMBM, MG, TROPHS #### [place] [address] Hematocrit (Bld) [Volume fraction] 41.6 % Normal 40.0-52.0 [facility] ([place]) Comment on above: Performed By: #### P HOS, CKMB, CKMBM, MG, TROPHS #### [place] [address] Hgb 14.0 G/dL Normal 13.0-17.5 [facility] ([place]) Comment on above: Performed By: #### P HOS, CKMB, CKMBM, MG, TROPHS #### [place] [id number] MCH (RBC) [Entitic mass] 28.4 pg Normal 27.0-33.0 [facility] ([place]) Comment on above: Performed By: #### P HOS, CKMB, CKMBM, MG, TROPHS #### [place] [address] MCHC 33.7 G/dL Normal 32.0-36.0 [facility] ([place] Comment on above: Performed By: #### P HOS, CKMB, CKMBM, MG, TROPHS #### [place] [address] MCV (RBC) [Entitic vol] 84.4 fL Normal 81.0-100.0 [facility] ([place] Comment on above: Performed By: #### P HOS, CKMB, CKMBM, MG, TROPHS #### [place] [address] Platelet 270 10 3/mcL Normal 150-450 [facility] ([place]) Comment on above: Performed By: #### P HOS, CKMB, CKMBM, MG, TROPHS #### [place] [address] Platelet mean volume (Bld) [Entitic vol] 9.7 fL Normal 6.4-10.5 [facility] ([place]) Comment on above: Performed By: #### P HOS, CKMB, CKMBM, MG, TROPHS #### [place] [address] RBC 4.92 10 6/mcL Normal 4.50-6.00 [facility] ([place]) Comment on above: Performed By: #### P HOS, CKMB, CKMBM, MG, TROPHS #### [place] [address] WBC 12.9 10 3/mcL High 4.5-10.8 [facility] ([place]) Comment on above: Performed By: #### P HOS, CKMB, CKMBM, MG, TROPHS #### [place] [address] LABORATORYOrdered By: Tegan Miller on 12-07-2022 Glucose [Mass/Vol] 258 mg/dL Invalid Interpretation Code 70 - 110 mg/dL [facility] Work Phone: LABORATORYOrdered By: Juan David Wells on 12-07-2022 Blood Glucose Testing Reason Routine (12/07/22 4:49 PM) [facility] Work Phone: LABORATORYOrdered By: SYSTEM SYSTEM [...] Invalid Interpretation Code 3.5 - 5.0 mEq/L ADM SS RBC (Bld) [#/Vol] 4.92 106/mcL [...] Basophil, Absolute 0.0 10 3/mcL Normal 0.0-0.3 [facility] [place] Comment on above: Performed By: #### G FR, CBC, ADIFF, ANEU, BMP #### [address] [address] Basophils/100 WBC (Bld) 0.2 % Normal 0.0-2.5 [facility] ([place]) Comment on above: Performed By: #### G FR, CBC, ADIFF, ANEU, BMP #### [address] [address] Eosinophil, Absolute 0.2 10 3/mcL Normal 0.0-0.7 [facility] ([place] Comment on above: Performed By: #### G FR, CBC, ADIFF, ANEU, BMP #### [address] [address] Eosinophils/100 WBC (Bld) 1.1 % Normal 0.0-6.0 [facility] ([place]) Comment on above: Performed By: #### G FR, CBC, ADIFF, ANEU, BMP #### [address] [address] Lymphocyte, Absolute 0.9 10 3/mcL Normal 0.9-4.3 [facility] ([place] Comment on above: Performed By: #### G FR, CBC, ADIFF, ANEU, BMP #### [address] [address] Lymphocytes/100 WBC (Bld) 6.1 % Low 20.0-40.0 [facility] ([place]) Comment on above: Performed By: #### G FR, CBC, ADIFF, ANEU, BMP #### [address] [address] Monocyte, Absolute 1.1 10 3/mcL Normal 0.1-1.4 [facility] [place] Comment on above: Performed By: #### G FR, CBC, ADIFF, ANEU, BMP #### [address] [address] Monocytes/100 WBC (Bld) 7.0 % Normal 2.0-13.0 [facility] ([place]) Comment on above: Performed By: #### G FR, CBC, ADIFF, ANEU, BMP #### [address] [address] Neutrophils/100 WBC (Bld) 85.6 % High 50.0-75.0 [facility] ([place]) Comment on above: Performed By: #### G FR, CBC, ADIFF, ANEU, BMP #### [address] [address] .GFRon 12-06-2022 GFR Non- >60 Normal [facility] ([place]) Comment on above: Result Comment: GFR Population [...] G FR, CBC, ADIFF, ANEU, BMP #### [address] [address] GFR >60 Normal [facility] [place] Comment on above: Result Comment: GFR Population [...] G FR, CBC, ADIFF, ANEU, BMP #### [address] [address] .NEUABSon 12-06-2022 Neutrophil, Absolute 13.0 10 3/mcL High 2.3-8.1 [facility] ([place]) Comment on above: Performed By: #### G FR, CBC, ADIFF, ANEU, BMP #### [address] [address] BMPon 12-06-2022 BUN/Creatinine Ratio 21.5 ratio Normal 10.0-22.0 [facility] [place] Comment on above: Performed By: #### G FR, CBC, ADIFF, ANEU, BMP #### [address] [address] Calcium [Mass/Vol] 8.7 mg/dL Normal 8.7-10.4 [facility] ([place]) Comment on above: Performed By: #### G FR, CBC, ADIFF, ANEU, BMP #### [address] [address] Chloride [Moles/Vol] 101 mmol/L Normal 98-110 [facility] [place] Comment on above: Performed By: #### G FR, CBC, ADIFF, ANEU, BMP #### [address] [address] CO2 [Moles/Vol] 28 mmol/L Normal 22-32 [facility] ([place]) Comment on above: Performed By: #### G FR, CBC, ADIFF, ANEU, BMP #### [address] [address] Creatinine [Mass/Vol] 0.93 mg/dL Normal 0.60-1.40 [facility] ([place]) Comment on above: Performed By: #### G FR, CBC, ADIFF, ANEU, BMP #### [place] [address] Electrolyte Balance 6.0 mEq/L Normal 4.0-15.0 [facility] ([place] Comment on above: Performed By: #### G FR, CBC, ADIFF, ANEU, BMP #### [address] [address] Glucose [Mass/Vol] 286 mg/dL High 70-110 [facility] ([place]) Comment on above: Performed By: #### G FR, CBC, ADIFF, ANEU, BMP #### [address] [address] Potassium [Moles/Vol] 4.4 mmol/L Normal 3.5-5.0 [facility] ([place]) Comment on above: Performed By: #### G FR, CBC, ADIFF, ANEU, BMP #### [address] [address] Sodium [Moles/Vol] 135 mmol/L Low 136-145 [facility] ([place]) Comment on above: Performed By: #### G FR, CBC, ADIFF, ANEU, BMP #### [place] [address] Urea nitrogen [Mass/Vol] 20.0 mg/dL Normal 8.0-22.0 [facility] ([place]) Comment on above: Performed By: #### G FR, CBC, ADIFF, ANEU, BMP #### [place] [address] CBCon 12-06-2022 Erythrocyte distribution width (RBC) [Ratio] 13.5 % Normal 11.5-15.5 [facility] ([place]) Comment on above: Performed By: #### G FR, CBC, ADIFF, ANEU, BMP #### [place] [address] Hematocrit (Bld) [Volume fraction] 41.0 % Normal 40.0-52.0 [facility] ([place]) Comment on above: Performed By: #### G FR, CBC, ADIFF, ANEU, BMP #### [place] [address] Hgb 13.9 G/dL Normal 13.0-17.5 [facility] ([place]) Comment on above: Performed By: #### G FR, CBC, ADIFF, ANEU, BMP #### [place] [address] MCH (RBC) [Entitic mass] 28.9 pg Normal 27.0-33.0 [facility] ([place]) Comment on above: Performed By: #### G FR, CBC, ADIFF, ANEU, BMP #### [place] [address] MCHC 33.9 G/dL Normal 32.0-36.0 [facility] ([place]) Comment on above: Performed By: #### G FR, CBC, ADIFF, ANEU, BMP #### [place] [address] MCV (RBC) [Entitic vol] 85.0 fL Normal 81.0-100.0 [facility] ([place]) Comment on above: Performed By: #### G FR, CBC, ADIFF, ANEU, BMP #### [address] [address] Platelet 239 10 3/mcL Normal 150-450 [facility] ([place]) Comment on above: Performed By: #### G FR, CBC, ADIFF, ANEU, BMP #### [place] [address] Platelet mean volume (Bld) [Entitic vol] 9.5 fL Normal 6.4-10.5 [facility] ([place]) Comment on above: Performed By: #### G FR, CBC, ADIFF, ANEU, BMP #### [place] [address] RBC 4.82 10 6/mcL Normal 4.50-6.00 [facility] ([place]) Comment on above: Performed By: #### G FR, CBC, ADIFF, ANEU, BMP #### [place] [address] WBC 15.2 10 3/mcL High 4.5-10.8 [facility] ([place]) Comment on above: Performed By: #### G FR, CBC, ADIFF, ANEU, BMP #### [address] [address] LABORATORYOrdered By: Rema Wen on 12-06-2022 LDose [...] - 1.40 mg/dL ADM SS Electrolyte Balance 6.0 mEq/L Invalid [...] (S/P/Bld) [Vol rate/Area] ml/min/1.73sqm Invalid Interpretation Code [employer] Chemistry S Comment on above: Interpretive Data: [...] (S/P/Bld) [Vol rate/Area] ml/min/1.73sqm Invalid Interpretation Code [employer] Chemistry S Comment on above: Interpretive Data: [...] Invalid Interpretation Code 3.5 - 5.0 mEq/L ADM SS RBC (Bld) [#/Vol] 4.82 106/mcL [...] 4.5 - 10.8 10^3/mcL AH Workflow SS [facility] 12-06-2022 LDose Vancomycin:(trough) See eMAR Normal [facility] ([place]) Comment on above: Performed By: #### P HOS, CKMB, CKMBM, MG, TROPHS #### [address] [address] Vancomycin Tr 9.7 mcg/mL Normal 5.0-20.0 [facility] ([place]) Comment on above: Performed By: #### P HOS, CKMB, CKMBM, MG, TROPHS #### [address] [address] .Auto Diffon 12-05-2022 Basophil, Absolute 0.0 10 3/mcL Normal 0.0-0.3 [facility] [place] Comment on above: Performed By: #### P HOS, CKMB, CKMBM, MG, TROPHS #### [address] [address] Basophils/100 WBC (Bld) 0.2 % Normal 0.0-2.5 [facility] ([place]) Comment on above: Performed By: #### P HOS, CKMB, CKMBM, MG, TROPHS #### [address] [address] Eosinophil, Absolute 0.1 10 3/mcL Normal 0.0-0.7 [facility] ([place]) Comment on above: Performed By: #### P HOS, CKMB, CKMBM, MG, TROPHS #### [address] [address] Eosinophils/100 WBC (Bld) 0.8 % Normal 0.0-6.0 [facility] ([place]) Comment on above: Performed By: #### P HOS, CKMB, CKMBM, MG, TROPHS #### [address] [address] Lymphocyte, Absolute 1.0 10 3/mcL Normal 0.9-4.3 [facility] ([place]) Comment on above: Performed By: #### P HOS, CKMB, CKMBM, MG, TROPHS #### [address] [address] Lymphocytes/100 WBC (Bld) 5.8 % Low 20.0-40.0 [facility] ([place]) Comment on above: Performed By: #### P HOS, CKMB, CKMBM, MG, TROPHS #### [address] [address] Monocyte, Absolute 1.1 10 3/mcL Normal 0.1-1.4 [facility] [place] Comment on above: Performed By: #### P HOS, CKMB, CKMBM, MG, TROPHS #### [address] [address] Monocytes/100 WBC (Bld) 6.2 % Normal 2.0-13.0 [facility] ([place]) Comment on above: Performed By: #### P HOS, CKMB, CKMBM, MG, TROPHS #### [address] [address] Neutrophils/100 WBC (Bld) 87.0 % High 50.0-75.0 [facility] ([place]) Comment on above: Performed By: #### P HOS, CKMB, CKMBM, MG, TROPHS #### [address] [address] .GFRon 12-05-2022 GFR Non- >60 Normal [facility] ([place]) Comment on above: Result Comment: GFR [...] P HOS, CKMB, CKMBM, MG, TROPHS #### [address] [address] GFR >60 Normal [facility] [place] Comment on above: Result Comment: GFR Population [...] P HOS, CKMB, CKMBM, MG, TROPHS #### [address] [address] .NEUABSon 12-05-2022 Neutrophil, Absolute 14.9 10 3/mcL High 2.3-8.1 [facility] ([place]) Comment on above: Performed By: #### P HOS, CKMB, CKMBM, MG, TROPHS #### [address] [address] CBCon 12-05-2022 Erythrocyte distribution width (RBC) [Ratio] 13.8 % Normal 11.5-15.5 [facility] ([place]) Comment on above: Performed By: #### P HOS, CKMB, CKMBM, MG, TROPHS #### [place] [address] Hematocrit (Bld) [Volume fraction] 44.8 % Normal 40.0-52.0 [facility] ([place]) Comment on above: Performed By: #### P HOS, CKMB, CKMBM, MG, TROPHS #### [place] [address] Hgb 15.0 G/dL Normal 13.0-17.5 [facility] ([place]) Comment on above: Performed By: #### P HOS, CKMB, CKMBM, MG, TROPHS #### [place] [address] MCH (RBC) [Entitic mass] 28.5 pg Normal 27.0-33.0 [facility] ([place]) Comment on above: Performed By: #### P HOS, CKMB, CKMBM, MG, TROPHS #### [place] [address] MCHC 33.4 G/dL Normal 32.0-36.0 [facility] ([place]) Comment on above: Performed By: #### P HOS, CKMB, CKMBM, MG, TROPHS #### [place] [address] MCV (RBC) [Entitic vol] 85.3 fL Normal 81.0-100.0 [facility] ([place] Comment on above: Performed By: #### P HOS, CKMB, CKMBM, MG, TROPHS #### [place] [address] Platelet 266 10 3/mcL Normal 150-450 [facility] ([place]) Comment on above: Performed By: #### P HOS, CKMB, CKMBM, MG, TROPHS #### [place] [address] Platelet mean volume (Bld) [Entitic vol] 9.6 fL Normal 6.4-10.5 [facility] ([place]) Comment on above: Performed By: #### P HOS, CKMB, CKMBM, MG, TROPHS #### [address] [address] RBC 5.25 10 6/mcL Normal 4.50-6.00 [facility] ([place]) Comment on above: Performed By: #### P HOS, CKMB, CKMBM, MG, TROPHS #### [address] [address] WBC 17.1 10 3/mcL High 4.5-10.8 [facility] ([place]) Comment on above: Performed By: #### P HOS, CKMB, CKMBM, MG, TROPHS #### [address] [address] CMPon 12-05-2022 Albumin Level 3.2 G/dL Normal 3.2-4.8 [facility] ([place]) Comment on above: Performed By: #### P HOS, CKMB, CKMBM, MG, TROPHS #### [place] [id number] Albumin/Globulin [Mass ratio] 1.0 {ratio} Normal 0.9-1.6 [facility] ([place]) Comment on above: Performed By: #### P HOS, CKMB, CKMBM, MG, TROPHS #### [place] [phone] ALP [Catalytic activity/Vol] 137 U/L High 38-126 [facility] ([place]) Comment on above: Performed By: #### P HOS, CKMB, CKMBM, MG, TROPHS #### [place] [id number] ALT [Catalytic activity/Vol] 25 U/L Normal 12-55 [facility] ([place]) Comment on above: Performed By: #### P HOS, CKMB, CKMBM, MG, TROPHS #### [address] [address] AST [Catalytic activity/Vol] 17 U/L Normal 8-34 [facility] ([place]) Comment on above: Performed By: #### P HOS, CKMB, CKMBM, MG, TROPHS #### [address] [address] Bili Total 2.60 mg/dL High 0.20-1.20 [facility] ([place]) Comment on above: Result Comment: Use of this assay is not recommended for patients undergoing treatment with eltrombopag due to the potential for falsely elevated results. Performed By: #### P HOS, CKMB, CKMBM, MG, TROPHS #### [place] [address] BUN/Creatinine Ratio 23.9 ratio High 10.0-22.0 [facility] [place] Comment on above: Performed By: #### P HOS, CKMB, CKMBM, MG, TROPHS #### [place] [address] Calcium [Mass/Vol] 9.2 mg/dL Normal 8.7-10.4 [facility] ([place]) Comment on above: Performed By: #### P HOS, CKMB, CKMBM, MG, TROPHS #### [place] [address] Chloride [Moles/Vol] 101 mmol/L Normal 98-110 [facility] [place] Comment on above: Performed By: #### P HOS, CKMB, CKMBM, MG, TROPHS #### [place] [address] CO2 [Moles/Vol] 26 mmol/L Normal 22-32 [facility] ([place]) Comment on above: Performed By: #### P HOS, CKMB, CKMBM, MG, TROPHS #### [place] [address] Creatinine [Mass/Vol] 0.71 mg/dL Normal 0.60-1.40 [facility] ([place]) Comment on above: Performed By: #### P HOS, CKMB, CKMBM, MG, TROPHS #### [place] [phone] Electrolyte Balance 10.0 mEq/L Normal 4.0-15.0 [facility] ([place]) Comment on above: Performed By: #### P HOS, CKMB, CKMBM, MG, TROPHS #### [address] [address] Globulin 3.1 G/dL Normal 1.5-3.8 [facility] ([place]) Comment on above: Performed By: #### P HOS, CKMB, CKMBM, MG, TROPHS #### [address] [address] Glucose [Mass/Vol] 216 mg/dL High 70-110 [facility] ([place]) Comment on above: Performed By: #### P HOS, CKMB, CKMBM, MG, TROPHS #### [address] [address] Potassium [Moles/Vol] 4.3 mmol/L Normal 3.5-5.0 [facility] ([place]) Comment on above: Performed By: #### P HOS, CKMB, CKMBM, MG, TROPHS #### [address] [address] Sodium [Moles/Vol] 137 mmol/L Normal 136-145 [facility] ([place]) Comment on above: Performed By: #### P HOS, CKMB, CKMBM, MG, TROPHS #### [address] [address] Total Protein 6.3 G/dL Normal 5.7-8.2 [facility] ([place]) Comment on above: Result Comment: No te - New Reference Range in effect 19 Performed By: #### P HOS, CKMB, CKMBM, MG, TROPHS #### [address] [address] Urea nitrogen [Mass/Vol] 17.0 mg/dL Normal 8.0-22.0 [facility] ([place]) Comment on above: Performed By: #### P HOS, CKMB, CKMBM, MG, TROPHS #### [address] [address] LABORATORYOrdered By: SYSTEM SYSTEM on 12-05-2022 Albumin [...] Basophil, Absolute 0.1 10 3/mcL Normal 0.0-0.2 [facility] [place] Comment on above: Performed By: #### P HOS, CKMB, CKMBM, MG, TROPHS #### [address] [address] Basophils/100 WBC (Bld) 0.6 % Normal 0.0-2.5 [facility] ([place]) Comment on above: Performed By: #### P HOS, CKMB, CKMBM, MG, TROPHS #### [address] [address] Eosinophil, Absolute 0.1 10 3/mcL Normal 0.0-0.4 [facility] ([place] Comment on above: Performed By: #### P HOS, CKMB, CKMBM, MG, TROPHS #### [address] [address] Eosinophils/100 WBC (Bld) 0.9 % Normal 0.0-7.0 [facility] ([place]) Comment on above: Performed By: #### P HOS, CKMB, CKMBM, MG, TROPHS #### [address] [address] Lymphocyte, Absolute 1.0 10 3/mcL Normal 0.8-3.9 [facility] ([place] Comment on above: Performed By: #### P HOS, CKMB, CKMBM, MG, TROPHS #### [address] [address] Lymphocytes/100 WBC (Bld) 5.8 % Low 10.0-50.0 [facility] ([place]) Comment on above: Performed By: #### P HOS, CKMB, CKMBM, MG, TROPHS #### [address] [address] Monocyte, Absolute 0.9 10 3/mcL Normal 0.2-1.0 [facility] [place] Comment on above: Performed By: #### P HOS, CKMB, CKMBM, MG, TROPHS #### [address] [address] Monocytes/100 WBC (Bld) 5.2 % Normal 1.7-13.0 [facility] ([place]) Comment on above: Performed By: #### P HOS, CKMB, CKMBM, MG, TROPHS #### [address] [address] Neutrophils/100 WBC (Bld) 87.5 % High 37.0-80.0 [facility] ([place]) Comment on above: Performed By: #### P HOS, CKMB, CKMBM, MG, TROPHS #### [address] [address] .GFRon 12-04-2022 GFR 101 ml/min/1.73sqm Normal [facility] ([place]) Comment on above: Result Comment: GFR Population [...] P HOS, CKMB, CKMBM, MG, TROPHS #### [address] [address] GFR Non- 83 ml/min/1.73sqm Normal [facility] ([place]) Comment on above: Result Comment: GFR Population [...] P HOS, CKMB, CKMBM, MG, TROPHS #### [address] [address] .MDWon 12-04-2022 Monocyte Distribution Width 21.11 High 0.00-20.00 [facility] ([place]) Comment on above: Result Comment: For adults in ED, MDW>20.0 may be associated with a higher risk of sepsis during the first 12hrs of hospital admission Performed By: #### P HOS, CKMB, CKMBM, MG, TROPHS #### [address] [address] .NEUABSon 12-04-2022 Neutrophil, Absolute 15.0 10 3/mcL High 2.9-6.2 [facility] ([place]) Comment on above: Performed By: #### P HOS, CKMB, CKMBM, MG, TROPHS #### [address] [address] BMPon 12-04-2022 BUN/Creatinine Ratio 14 ratio Normal 7-27 [facility] [place] Comment on above: Performed By: #### P HOS, CKMB, CKMBM, MG, TROPHS #### [address] [address] Calcium [Mass/Vol] 9.2 mg/dL Normal 8.4-10.2 [facility] ([place]) Comment on above: Performed By: #### P HOS, CKMB, CKMBM, MG, TROPHS #### [address] [address] Chloride [Moles/Vol] 99 mmol/L Normal 98-107 [facility] [place] Comment on above: Performed By: #### P HOS, CKMB, CKMBM, MG, TROPHS #### [address] [address] CO2 [Moles/Vol] 29 mmol/L Normal 22-29 [facility] ([place]) Comment on above: Performed By: #### P HOS, CKMB, CKMBM, MG, TROPHS #### [address] [address] Creatinine [Mass/Vol] 0.95 mg/dL Normal 0.70-1.30 [facility] ([place]) Comment on above: Performed By: #### P HOS, CKMB, CKMBM, MG, TROPHS #### [address] [address] Electrolyte Balance 9.0 mEq/L Normal 4.0-15.0 [facility] ([place]) Comment on above: Performed By: #### P HOS, CKMB, CKMBM, MG, TROPHS #### [address] [address] Glucose [Mass/Vol] 321 mg/dL High 70-105 [facility] ([place]) Comment on above: Performed By: #### P HOS, CKMB, CKMBM, MG, TROPHS #### [place] [phone] Potassium [Moles/Vol] 4.5 mmol/L Normal 3.5-5.1 [facility] ([place]) Comment on above: Performed By: #### P HOS, CKMB, CKMBM, MG, TROPHS #### [place] [address] Sodium [Moles/Vol] 137 mmol/L Normal 136-145 [facility] ([place]) Comment on above: Performed By: #### P HOS, CKMB, CKMBM, MG, TROPHS #### [place] [address] Urea nitrogen [Mass/Vol] 13 mg/dL Normal 7-18 [facility] ([place]) Comment on above: Performed By: #### P HOS, CKMB, CKMBM, MG, TROPHS #### [place] [address] CBCon 12-04-2022 Erythrocyte distribution width (RBC) [Ratio] 14.1 % Normal 11.5-14.5 [facility] ([place]) Comment on above: Performed By: #### P HOS, CKMB, CKMBM, MG, TROPHS #### [place] [address] Hematocrit (Bld) [Volume fraction] 46.5 % Normal 42.0-52.0 [facility] ([place]) Comment on above: Performed By: #### P HOS, CKMB, CKMBM, MG, TROPHS #### [place] [address] Hgb 15.9 G/dL Normal 14.0-18.0 [facility] ([place]) Comment on above: Performed By: #### P HOS, CKMB, CKMBM, MG, TROPHS #### [place] [address] MCH (RBC) [Entitic mass] 28.7 pg Normal 27.0-31.2 [facility] ([place]) Comment on above: Performed By: #### P HOS, CKMB, CKMBM, MG, TROPHS #### [place] [address] MCHC 34.2 G/dL Normal 31.8-35.4 [facility] ([place]) Comment on above: Performed By: #### P HOS, CKMB, CKMBM, MG, TROPHS #### [place] [address] MCV (RBC) [Entitic vol] 83.9 fL Normal 80.0-94.0 [facility] ([place]) Comment on above: Performed By: #### P HOS, CKMB, CKMBM, MG, TROPHS #### [place] [address] Platelet 255 10 3/mcL Normal 130-400 [facility] ([place]) Comment on above: Performed By: #### P HOS, CKMB, CKMBM, MG, TROPHS #### [place] [address] Platelet mean volume (Bld) [Entitic vol] 9.1 fL Normal 7.4-10.4 [facility] ([place]) Comment on above: Performed By: #### P HOS, CKMB, CKMBM, MG, TROPHS #### [place] [address] RBC 5.54 10 6/mcL Normal 4.04-6.13 [facility] ([place]) Comment on above: Performed By: #### P HOS, CKMB, CKMBM, MG, TROPHS #### [place] [address] WBC 17.2 10 3/mcL High 4.6-10.8 [facility] ([place]) Comment on above: Performed By: #### P HOS, CKMB, CKMBM, MG, TROPHS #### [place] [address] CK-Shanell 12-04-2022 Relative Index Not Valid Normal 0.0-4.5 [facility] ([place]) Comment on above: Result Comment: CPK <185 invalidates relative index Performed By: #### P HOS, CKMB, CKMBM, MG, TROPHS #### [facility] [address] [place] [address] CK [Catalytic activity/Vol] 61 U/L Normal 7-185 [facility] ([place]) Comment on above: Result Comment: Spec imen slightly hemolyzed. Performed By: #### P HOS, CKMB, CKMBM, MG, TROPHS #### [facility] [address] [place] [address] CKMBMon 12-04-2022 CK.MB [Mass/Vol] Not performed Normal 0.00-5.00 [facility] ([place]) Comment on above: Result Comment: CKMB result not performed when CPK < 75 Note - New Reference Range in effect 19 Performed By: #### P HOS, CKMB, CKMBM, MG, TROPHS #### [facility] [address] [place] [id number] SOFT TISSUE NECK W/ CONTR Cash [...] Date: 12/04/2022 12:12:41 PM Ordering Provider[facility] LABORATORYOrdered By: [employer] SYSTEM on 12-04-2022 Troponin I.cardiac DL <= 0.01 ng/mL [Mass/Vol] 4.33 ng/L Invalid Interpretation Code 0.00 - 54.00 ng/L [facility] Comment on above: Interpretive Data: I f the High Sensitive Troponin result is below the 99th percentile value (<45 ng/L) at the first blood draw, at least two additional blood samples should be drawn before results are interpreted as negative for AMI. CK [Catalytic activity/Vol] 61 U/L Invalid Interpretation Code 7 - 185 U/L [facility] Comment on above: Result Comment: Spec imen slightly hemolyzed. Magnesium [Mass/Vol] 1.7 mg/dL Invalid Interpretation Code 1.6 - 2.4 mg/dL [facility] Phosphate [Mass/Vol] 3.6 mg/dL Invalid Interpretation Code 2.4 - 5.1 mg/dL [facility] Comment on above: Interpretive Data: * *Note - New Reference Range in effect 19 Troponin I.cardiac DL <= 0.01 ng/mL [Mass/Vol] ng/L Invalid Interpretation Code 0.00 - 54.00 ng/L [facility] Comment on above: Interpretive Data: I [...] 12-04-2022 Magnesium [Mass/Vol] 1.7 mg/dL Normal 1.6-2.4 [facility] [place] Comment on above: Performed By: #### P HOS, CKMB, CKMBM, MG, TROPHS #### [place] [address] No Panel Informationon 12-04 Microscopic examination of blood, culture Culture has been received in lab and is no growth to date. Routine cultures are held for 5 days. [facility] Work Phone: PHOSon 12-04-2022 Phosphate [Mass/Vol] 3.6 mg/dL Normal 2.4-5.1 [facility] [place] Comment on above: Result Comment: No te - New Reference Range in effect 19 Performed By: #### P HOS, CKMB, CKMBM, MG, TROPHS #### [address] [address] [facility] 12-04-2022 Troponin I High Sensitivity 4.33 ng/L Normal 0.00-54.00 [facility] ([place]) Comment on above: Result Comment: If t he High Sensitive Troponin result is below the 99th percentile value (<45 ng/L) at the first blood draw, at least two additional blood samples should be drawn before results are interpreted as negative for AMI. Performed By: #### P HOS, CKMB, CKMBM, MG, TROPHS #### [place] [address] Troponin I High Sensitivity <2.50 Normal 0.00-54.00 [facility] ([place]) Comment on above: Result Comment: If t he High Sensitive Troponin result is below the 99th percentile value (<45 ng/L) at the first blood draw, at least two additional blood samples should be drawn before results are interpreted as negative for AMI. Performed By: #### P HOS, CKMB, CKMBM, MG, TROPHS #### [address] [address] Absolute lymphocyte countOrd ered By: Dr. Bella on 07-30-2022 Lymphocytes Auto (Unsp spec) [#/Vol] 1.32 10*3/uL 0.83-4.51 [facility] Basophil percentageOrdered B y: Dr. Bella on 07-30-2022 Basophil percentage 0 SEEN /hpf 0-5 [facility] Basophils/100 WBC (Bld) 0.7 % 0-1 [facility] Chloride [Moles/Vol] 105 mmol/L 98-107 [facility] Eosinophils/100 WBC (Bld) 1.7 % 0-5 [facility] Glucose [Mass/Vol] 192 mg/dL 74-106 [facility] Comment on above: Fasting Glucose resu lt greater than or equal to 126 mg/dL suggests DIABETES MELLITUS per A.D.A. criteria. Neutrophils (Bld) [#/Vol] 5.0 10*3/uL 2.0-7.7 [facility] Neutrophils/100 WBC (Bld) 72.2 % 47-70 [facility] Potassium [Moles/Vol] 4.1 mmol/L 3.5-5.1 [facility] Sodium [Moles/Vol] 140 mmol/L 136-145 [facility] WBC (Bld) [#/Vol] 6.9 10*3/uL 4.4-11.0 [facility] Bilirubin Test strip Ql (U)O rdered By: Dr. Bella on 07-30-2022 Bilirubin Ql (U) Negative Negative [facility] Blood erythrocytes count (nu mber/volume)Ordered By: Dr. Bella on 07-30-2022 RBC (Bld) [#/Vol] 4.81 10*6/uL 4.6-6.2 [facility] Blood hemoglobin measurement (mass/volume)Ordered By: Dr. Bella on 07-30-2022 Hemoglobin (Bld) [Mass/Vol] 13.6 g/dL 13.0-16.5 [facility] Blood lymphocytes/100 leukoc ytesOrdered By: Dr. Bella on 07-30-2022 Lymphocytes/100 WBC (Bld) 19.0 % 19-41 [facility] Blood monocytes/100 leukocyt esOrdered By: Dr. Bella on 07-30-2022 Monocytes/100 WBC (Bld) 6.1 % 0-10 [facility] Blood platelet mean volumeOr dered By: Dr. Bella on 07-30-2022 Platelet mean volume (Bld) [Entitic vol] 10.5 fL 6.2-12.0 [facility] Determination of erythrocyte mean corpuscular volume (MCV)Ordered By: Dr. Bella on 07-30-2022 MCV (RBC) [Entitic vol] 89.0 fL 80-94 [facility] Glucose Glucometer (BldC) [M ass/Vol]Ordered By: Dr. Bella on 07-30-2022 Glucose [Mass/Vol] 168 mg/dL 74-106 [facility] Comment on above: MANAGEMENT OF PATIEN T CARE PER NURSING PROTOCOL Hematocrit Auto (Bld) [Volum e fraction]Ordered By: Dr. Bella on 07-30-2022 Hematocrit (Bld) [Volume fraction] 42.8 % 40-54 [facility] Ketones Test strip Ql (U)Ord ered By: Dr. Bella on 07-30-2022 Ketones Ql (U) Negative Negative [facility] Laboratory - Chemistry and C hemistry - challengeOrdered By: Dr. Bella on 07-30-2022 CO2 [Moles/Vol] 29.0 mmol/L 21.0-32.0 [facility] Urea nitrogen/Creatinine [Mass ratio] 14.1 mg/mg 10-20 [facility] Laboratory - Hematology and Cell countsOrdered By: Dr. Bella on 07-30-2022 Erythrocyte distribution width (RBC) [Entitic vol] 42.9 fL 35.1-43.9 [facility] Erythrocyte distribution width (RBC) [Ratio] 13.2 % 11.6-14.6 [facility] Immature granulocytes/100 WBC (Bld) 0.300 % 0.0-0.9 [facility] Comment on above: IG% - Immature Granu locytes (promyelocytes, myelocytes and metamyelocytes) > 1% indicates that a LEFT SHIFT is Present. MCH (RBC) [Entitic mass] 28.3 pg 27.0-32.0 [facility] Nucleated RBC/100 WBC (Bld) [Ratio] 0 % 0-5 [facility] MCHC Auto (RBC) [Mass/Vol]Or dered By: Dr. Bella on 07-30-2022 MCHC (RBC) [Mass/Vol] 31.8 g/dL 32-36 [facility] Mucus LM Ql (Urine sed)Order ed By: Dr. Bella on 07-30-2022 Mucus Ql (Urine sed) 0 SEEN /hpf [facility] Nitrite Test strip Ql (U)Ord ered By: Dr. Bella on 07-30-2022 Nitrite Ql (U) Negative Negative [facility] No Panel InformationOrdered By: Dr. Bella on 07-30-2022 Estimated Creatinine Clearance Calc 91.74 ml/min [facility] Estimated GFR (MDRD) Amer 121 mL/min >60 [facility] Comment on above: GFR Calc Estimated GFR (MDRD) Non-Af Amer 100 mL/min >60 [facility] Comment on above: Non- GFR Calc Platelets bldOrdered By: Dr. Bella on 07-30-2022 Platelets (Bld) [#/Vol] 253 10*3/uL 150-450 [facility] Protein Test strip Ql (U)Ord ered By: Dr. Bella on 07-30-2022 Protein Ql (U) Negative Negative [facility] Serum or plasma calcium david urement (mass/volume)Ordered By: Dr. Bella on 07-30-2022 Calcium [Mass/Vol] 8.8 mg/dL 8.5-10.1 [facility] Serum or plasma creatinine m easurement (mass/volume)Ordered By: Dr. Bella on 07-30-2022 Creatinine [Mass/Vol] 0.85 mg/dL 0.70-1.30 [facility] Comment on above: The validity of the calculated GFR & GFRAA in patients over 70 years has not been determined. Clinical correlation is essential. Serum or plasma urea nitroge n measurement (mass/volume)Ordered By: Dr. Bella on 07-30-2022 Urea nitrogen [Mass/Vol] 12 mg/dL 7-18 [facility] Squamous epithelial cells de tection in urine sediment by light microscopyOrdered By: Dr. Bella on 07-30-2022 Epithelial cells.squamous LM Ql (Urine sed) 0 SEEN /hpf 0-5 [facility] Thin prep Papanicolaou smear with manual screeningOrdered By: Dr. Bella on 07-30-2022 Thin prep Papanicolaou smear with manual screening 6 5-15 [facility] Urine blood detectionOrdered By: Dr. Bella on 07-30-2022 RBC Ql (U) Negative Negative [facility] RBC Ql (U) 0 SEEN /hpf 0-5 [facility] Urine clarityOrdered By: Dr. Bella on 07-30-2022 Clarity (U) Clear Clear [facility] Urine color determinationOrd ered By: Dr. Bella on 07-30-2022 Color (U) Yellow Yellow [facility] Urine glucose detectionOrder ed By: Dr. Bella on 07-30-2022 Glucose Ql (U) 250 mg/dl Normal [facility] Urine leukocyte esterase det ection by dipstickOrdered By: Dr. Bella on 07-30-2022 Leukocyte esterase Test strip Ql (U) Negative Negative [facility] Urine pHOrdered By: Dr. Bella o n 07-30-2022 pH (U) 6.0 [pH] 5.0 - 8.0 [facility] Urine sediment bacteria coun t by microscopy (number/high power field)Ordered By: Dr. Bella on 07-30-2022 Bacteria LM.HPF (Urine sed) [#/Area] 0 /[HPF] None Seen [facility] Urine specific gravity measu rementOrdered By: Dr. Bella on 07-30-2022 Specific gravity (U) [Rel density] 1.015 1.002-1.030 [facility] Urobilinogen Auto test strip Ql (U)Ordered By: Dr. Bella on 07-30-2022 Urobilinogen Ql (U) Normal mg/dl Normal [facility] Basophil percentageOrdered B y: David Shahpkins on 07-16-2022 Bilirubin [Mass/Vol] 1.90 mg/dL 0.20-1.00 [facility] Comment on above: For patients on eltr ombopag therapy, use of Dimension [place] TBIL is not recommended. Chloride [Moles/Vol] 104 mmol/L 98-107 [facility] Cholesterol [Mass/Vol] 181 mg/dL <200 [facility] Comment on above: <200 mg/dL Desirable 200-240 mg/dL Borderline >240 mg/dL High Risk Glucose [Mass/Vol] 199 mg/dL 74-106 [facility] Comment on above: Fasting Glucose resu lt greater than or equal to 126 mg/dL suggests DIABETES MELLITUS per A.D.A. criteria. Potassium [Moles/Vol] 3.9 mmol/L 3.5-5.1 [facility] Protein [Mass/Vol] 6.8 g/dL 6.4-8.2 [facility] Sodium [Moles/Vol] 138 mmol/L 136-145 [facility] Triglyceride [Mass/Vol] 93 mg/dL <199 [facility] Comment on above: The drugs N-Acetylcy steine and Metamizole may falsely depress this assay.Serum Triglycerides Reference Interval Normal <150 mg/dL Borderline high 150 - 199 mg/dL High 200 - 499 mg/dL Very High > or = 500 mg/dL WBC (Bld) [#/Vol] 7.2 10*3/uL 4.4-11.0 [facility] Blood erythrocytes count (nu mber/volume)Ordered By: David Cummins on 07-16-2022 RBC (Bld) [#/Vol] 5.07 10*6/uL 4.6-6.2 [facility] Blood hemoglobin measurement (mass/volume)Ordered By: David Cummins on 07-16-2022 Hemoglobin (Bld) [Mass/Vol] 14.2 g/dL 13.0-16.5 [facility] Blood platelet mean volumeOr dered By: David Cummins on 07-16-2022 Platelet mean volume (Bld) [Entitic vol] 11.4 fL 6.2-12.0 [facility] Determination of erythrocyte mean corpuscular volume (MCV)Ordered By: David Cummins on 07-16-2022 MCV (RBC) [Entitic vol] 87.4 fL 80-94 [facility] Hematocrit Auto (Bld) [Volum e fraction]Ordered By: David Cummins on 07-16-2022 Hematocrit (Bld) [Volume fraction] 44.3 % 40-54 [facility] Iron measurement (mass/mass) Ordered By: David Cummins on 07-16-2022 Iron (Unsp spec) [Mass/Mass] 101 ug/dL 65-175 [facility] Laboratory - Chemistry and C hemistry - challengeOrdered By: David Cummins on 07-16-2022 ALP [Catalytic activity/Vol] 98 U/L 45-117 [facility] ALT [Catalytic activity/Vol] 31 U/L 16-61 [facility] CO2 [Moles/Vol] 29.0 mmol/L 21.0-32.0 [facility] Globulin (S) [Mass/Vol] 3.2 g/dL 2.2-4.2 [facility] Urea nitrogen/Creatinine [Mass ratio] 21.5 mg/mg 10-20 [facility] Laboratory - Hematology and Cell countsOrdered By: David Cummins on 07-16-2022 Erythrocyte distribution width (RBC) [Entitic vol] 42.5 fL 35.1-43.9 [facility] Erythrocyte distribution width (RBC) [Ratio] 13.3 % 11.6-14.6 [facility] MCH (RBC) [Entitic mass] 28.0 pg 27.0-32.0 [facility] MCHC Auto (RBC) [Mass/Vol]Or dered By: David Cummins on 07-16-2022 MCHC (RBC) [Mass/Vol] 32.1 g/dL 32-36 [facility] No Panel InformationOrdered By: David Cummins on 07-16-2022 Estimated GFR (MDRD) Amer 123 mL/min >60 [facility] Comment on above: GFR Calc Estimated GFR (MDRD) Non-Af Amer 102 mL/min >60 [facility] Comment on above: Non- GFR Calc Prostate Specific Antigen Screen 0.78 ng/mL 0.00-4.00 [facility] Comment on above: This test was perfor med using the TPSA assay method for the[employer] chemistry system. Values obtained with differentassay methods cannot be used interchangably.When changing PSA assays in the course of monitoring apatient, additional sequential testing should be carriedout to confirm baseline values. Total Iron Binding Capacity 269 ug/dL 250-450 [facility] Vitamin D 25-Hydroxy 65.5 ng/mL [facility] Comment on above: Vitamin D 25(OH) Sta tus Range Deficiency <20 ng/mL (50nmol/L) Insufficiency 20 - 30 ng/mL (50 - 75 nmol/L) Sufficiency 30 - 100 ng/mL (75 - 250 nmol/L) Toxicity >100 ng/mL (>250 nmol/L) Platelets bldOrdered By: Sixto Cummins on 07-16-2022 Platelets (Bld) [#/Vol] 308 10*3/uL 150-450 [facility] Serum or plasma albumin david urement (mass/volume)Ordered By: David Cummins on 07-16-2022 Albumin [Mass/Vol] 3.6 g/dL 3.2-5.0 [facility] Serum or plasma albumin/glob ulin mass ratioOrdered By: David Cummins on 07-16-2022 Albumin/Globulin [Mass ratio] 1.1 {ratio} 0.9-2.4 [facility] Serum or plasma calcium david urement (mass/volume)Ordered By: David Cummins on 07-16-2022 Calcium [Mass/Vol] 8.7 mg/dL 8.5-10.1 [facility] Serum or plasma cholesterol in HDL measurement (mass/volume)Ordered By: David Cummins on 07-16-2022 Cholesterol in HDL [Mass/Vol] 41 mg/dL >40 [facility] Comment on above: The drugs N-Acetylcy steine and Metamizole may falsely depress this assay. Reference Range HDL <40 mg/dL Low HDL Cholesterol HDL >or= 60 mg/dL High HDL Cholesterol Serum or plasma cholesterol in VLDL measurement (mass/volume)Ordered By: David Cummins on 07-16-2022 Cholesterol in VLDL [Mass/Vol] 19 mg/dL 5-40 [facility] Serum or plasma creatinine m easurement (mass/volume)Ordered By: David Cummins on 07-16-2022 Creatinine [Mass/Vol] 0.84 mg/dL 0.70-1.30 [facility] Comment on above: The validity of the calculated GFR & GFRAA in patients over 70 years has not been determined. Clinical correlation is essential. Serum or plasma low density lipoprotein (LDL) cholesterol measurement (mass/volume)Ordered By: David Cummins on 07-16-2022 Cholesterol in LDL [Mass/Vol] 121 mg/dL 0-130 [facility] Serum or plasma urea nitroge n measurement (mass/volume)Ordered By: David Cummins 07-16-2022 Urea nitrogen [Mass/Vol] 18 mg/dL 7-18 [facility] Thin prep Papanicolaou smear with manual screeningOrdered By: David Cummins on 07-16-2022 Thin prep Papanicolaou smear with manual screening 20 U/L 15-37 [facility] Thin prep Papanicolaou smear with manual screening 5 5-15 [facility] Whole blood hemoglobin A1c/t otal hemoglobin ratio (mass fraction)Ordered By: David Cummins on 07-16-2022 HbA1c (Bld) [Mass fraction] 9.5 % 3.8-5.6 [facility] Comment on above: Normal < 5.7 % Predi abetic 5.7 - 6.4 % Diabetic >or= 6.5 % Please note range changes. Absolute lymphocyte countOrd ered By: Dr. Cristina on 07-12-2022 Lymphocytes Auto (Unsp spec) [#/Vol] 1.47 10*3/uL 0.83-4.51 [facility] Basophil percentageOrdered B y: Dr. Cristina on 07-12-2022 Basophils/100 WBC (Bld) 0.7 % 0-1 [facility] Bilirubin [Mass/Vol] 1.80 mg/dL 0.20-1.00 [facility] Comment on above: For patients on eltr ombopag therapy, use of Dimension [place] TBIL is not recommended. Chloride [Moles/Vol] 105 mmol/L 98-107 [facility] Cholesterol [Mass/Vol] 181 mg/dL <200 [facility] Comment on above: <200 mg/dL Desirable 200-240 mg/dL Borderline >240 mg/dL High Risk Eosinophils/100 WBC (Bld) 1.1 % 0-5 [facility] Glucose [Mass/Vol] 204 mg/dL 74-106 [facility] Comment on above: Glucose result great er than or equal to 200 mg/dLsuggests DIABETES MELLITUS per A.D.A. criteria. Neutrophils (Bld) [#/Vol] 5.0 10*3/uL 2.0-7.7 [facility] Neutrophils/100 WBC (Bld) 70.3 % 47-70 [facility] Potassium [Moles/Vol] 4.0 mmol/L 3.5-5.1 [facility] Protein [Mass/Vol] 6.6 g/dL 6.4-8.2 [facility] Sodium [Moles/Vol] 135 mmol/L 136-145 [facility] Triglyceride [Mass/Vol] 105 mg/dL <199 [facility] Comment on above: The drugs N-Acetylcy steine and Metamizole may falsely depress this assay.Serum Triglycerides Reference Interval Normal <150 mg/dL Borderline high 150 - 199 mg/dL High 200 - 499 mg/dL Very High > or = 500 mg/dL WBC (Bld) [#/Vol] 7.1 10*3/uL 4.4-11.0 [facility] Blood erythrocytes count (nu mber/volume)Ordered By: Dr. Cristina on 07-12-2022 RBC (Bld) [#/Vol] 5.12 10*6/uL 4.6-6.2 [facility] Blood hemoglobin measurement (mass/volume)Ordered By: Dr. Cristina on 07-12-2022 Hemoglobin (Bld) [Mass/Vol] 14.4 g/dL 13.0-16.5 [facility] Blood lymphocytes/100 leukoc ytesOrdered By: Dr. Cristina on 07-12-2022 Lymphocytes/100 WBC (Bld) 20.6 % 19-41 [facility] Blood monocytes/100 leukocyt esOrdered By: Dr. Cristina on 07-12-2022 Monocytes/100 WBC (Bld) 6.9 % 0-10 [facility] Blood platelet mean volumeOr dered By: Dr. Cristina on 07-12-2022 Platelet mean volume (Bld) [Entitic vol] 11.0 fL 6.2-12.0 [facility] Determination of erythrocyte mean corpuscular volume (MCV)Ordered By: Dr. Cristina on 07-12-2022 MCV (RBC) [Entitic vol] 88.9 fL 80-94 [facility] Glucose Glucometer (dC) [M ass/Vol]Ordered By: Dr. Celis on 07-12-2022 Glucose [Mass/Vol] 277 mg/dL 74-106 [facility] Comment on above: MANAGEMENT OF PATIEN T CARE PER NURSING PROTOCOL Hematocrit Auto (Bld) [Volum e fraction]Ordered By: Dr. Cristina on 07-12-2022 Hematocrit (Bld) [Volume fraction] 45.5 % 40-54 [facility] Laboratory - Chemistry and C hemistry - challengeOrdered By: Dr. Cristina on 07-12-2022 ALP [Catalytic activity/Vol] 90 U/L 45-117 [facility] ALT [Catalytic activity/Vol] 32 U/L 16-61 [facility] CO2 [Moles/Vol] 27.0 mmol/L 21.0-32.0 [facility] Globulin (S) [Mass/Vol] 3.3 g/dL 2.2-4.2 [facility] Urea nitrogen/Creatinine [Mass ratio] 15.3 mg/mg 10-20 [facility] Laboratory - Hematology and Cell countsOrdered By: Dr. Cristina on 07-12-2022 Erythrocyte distribution width (RBC) [Entitic vol] 43.1 fL 35.1-43.9 [facility] Erythrocyte distribution width (RBC) [Ratio] 13.2 % 11.6-14.6 [facility] Immature granulocytes/100 WBC (Bld) 0.400 % 0.0-0.9 [facility] Comment on above: IG% - Immature Granu locytes (promyelocytes, myelocytes and metamyelocytes) > 1% indicates that a LEFT SHIFT is Present. MCH (RBC) [Entitic mass] 28.1 pg 27.0-32.0 [facility] Nucleated RBC/100 WBC (Bld) [Ratio] 0 % 0-5 [facility] MCHC Auto (RBC) [Mass/Vol]Or dered By: Dr. Cristina on 07-12-2022 MCHC (RBC) [Mass/Vol] 31.6 g/dL 32-36 [facility] No Panel InformationOrdered By: Dr. Cristina on 07-12-2022 Estimated Creatinine Clearance Calc 99.97 ml/min [facility] Estimated GFR (MDRD) Amer 134 mL/min >60 [facility] Comment on above: GFR Calc Estimated GFR (MDRD) Non-Af Amer 110 mL/min >60 [facility] Comment on above: Non- GFR Calc Platelets bldOrdered By: Dr. Cristina on 07-12-2022 Platelets (Bld) [#/Vol] 300 10*3/uL 150-450 [facility] Serum or plasma albumin david urement (mass/volume)Ordered By: Dr. Cristina on 07-12-2022 Albumin [Mass/Vol] 3.3 g/dL 3.2-5.0 [facility] Serum or plasma albumin/glob ulin mass ratioOrdered By: Dr. Cristina on 07-12-2022 Albumin/Globulin [Mass ratio] 1.0 {ratio} 0.9-2.4 [facility] Serum or plasma calcium david urement (mass/volume)Ordered By: Dr. Cristina on 07-12-2022 Calcium [Mass/Vol] 8.7 mg/dL 8.5-10.1 [facility] Serum or plasma cholesterol in HDL measurement (mass/volume)Ordered By: Dr. Cristina on 07-12-2022 Cholesterol in HDL [Mass/Vol] 40 mg/dL >40 [facility] Comment on above: The drugs N-Acetylcy steine and Metamizole may falsely depress this assay. Reference Range HDL <40 mg/dL Low HDL Cholesterol HDL >or= 60 mg/dL High HDL Cholesterol Serum or plasma cholesterol in VLDL measurement (mass/volume)Ordered By: Dr. Cristina on 07-12-2022 Cholesterol in VLDL [Mass/Vol] 21 mg/dL 5-40 [facility] Serum or plasma creatinine m easurement (mass/volume)Ordered By: Dr. Cristina on 07-12-2022 Creatinine [Mass/Vol] 0.78 mg/dL 0.70-1.30 [facility] Comment on above: The validity of the calculated GFR & GFRAA in patients over 70 years has not been determined. Clinical correlation is essential. Serum or plasma low density lipoprotein (LDL) cholesterol measurement (mass/volume)Ordered By: Dr. Cristina on 07-12-2022 Cholesterol in LDL [Mass/Vol] 120 mg/dL 0-130 [facility] Serum or plasma urea nitroge n measurement (mass/volume)Ordered By: Dr. Cristina on 07-12-2022 Urea nitrogen [Mass/Vol] 12 mg/dL 7-18 [facility] Thin prep Papanicolaou smear with manual screeningOrdered By: Dr. Cristina on 07-12-2022 Thin prep Papanicolaou smear with manual screening 16 U/L 15-37 [facility] Thin prep Papanicolaou smear with manual screening 3 5-15 [facility] Whole blood hemoglobin A1c/t otal hemoglobin ratio (mass fraction)Ordered By: Dr. Cristina on 07-12-2022 HbA1c (Bld) [Mass fraction] 9.3 % 3.8-5.6 [facility] Comment on above: Normal < 5.7 % Predi abetic 5.7 - 6.4 % Diabetic >or= 6.5 % Please note range changes. Absolute lymphocyte countOrd ered By: Dr. Hurley on 07-11-2022 Lymphocytes Auto (Unsp spec) [#/Vol] 1.53 10*3/uL 0.83-4.51 [facility] Basophil percentageOrdered B y: Dr. Hurley on 07-11-2022 Basophils/100 WBC (Bld) 0.7 % 0-1 [facility] Chloride [Moles/Vol] 104 mmol/L 98-107 [facility] Eosinophils/100 WBC (Bld) 0.9 % 0-5 [facility] Glucose [Mass/Vol] 185 mg/dL 74-106 [facility] Comment on above: Fasting Glucose resu lt greater than or equal to 126 mg/dL suggests DIABETES MELLITUS per A.D.A. criteria. Neutrophils (Bld) [#/Vol] 5.5 10*3/uL 2.0-7.7 [facility] Neutrophils/100 WBC (Bld) 72.4 % 47-70 [facility] Potassium [Moles/Vol] 3.9 mmol/L 3.5-5.1 [facility] Sodium [Moles/Vol] 136 mmol/L 136-145 [facility] WBC (Bld) [#/Vol] 7.5 10*3/uL 4.4-11.0 [facility] Blood erythrocytes count (nu mber/volume)Ordered By: Dr. Hurley on 07-11-2022 RBC (Bld) [#/Vol] 5.32 10*6/uL 4.6-6.2 [facility] Blood hemoglobin measurement (mass/volume)Ordered By: Dr. Hurley on 07-11-2022 Hemoglobin (Bld) [Mass/Vol] 15.1 g/dL 13.0-16.5 [facility] Blood lymphocytes/100 leukoc ytesOrdered By: Dr. Hurley on 07-11-2022 Lymphocytes/100 WBC (Bld) 20.3 % 19-41 [facility] Blood monocytes/100 leukocyt esOrdered By: Dr. Hurley on 07-11-2022 Monocytes/100 WBC (Bld) 5.2 % 0-10 [facility] Blood platelet mean volumeOr dered By: Dr. Hurley on 07-11-2022 Platelet mean volume (Bld) [Entitic vol] 10.4 fL 6.2-12.0 [facility] Determination of erythrocyte mean corpuscular volume (MCV)Ordered By: Dr. Hurley on 07-11-2022 MCV (RBC) [Entitic vol] 88.0 fL 80-94 [facility] Glucose Glucometer (dC) [M ass/Vol]on 07-11-2022 Glucose [Mass/Vol] 133 mg/dL 74-106 [facility] Comment on above: MANAGEMENT OF PATIEN T CARE PER NURSING PROTOCOL Hematocrit Auto (Bld) [Volum e fraction]Ordered By: Dr. Hurley on 07-11-2022 Hematocrit (Bld) [Volume fraction] 46.8 % 40-54 [facility] INR in Blood by Coagulation assayOrdered By: Dr. Hurley on 07-11-2022 INR Coag (Bld) [Relative time] 1.1 {INR} [facility] Laboratory - Chemistry and C hemistry - challengeOrdered By: Dr. Hurley on 07-11-2022 CO2 [Moles/Vol] 32.0 mmol/L 21.0-32.0 [facility] Urea nitrogen/Creatinine [Mass ratio] 15.4 mg/mg 10-20 [facility] Laboratory - CoagulationOrde red By: Dr. Hurley on 07-11-2022 aPTT Coag (Bld) [Time] 26.8 s 24.1-36.2 [facility] PT Coag (PPP) [Time] 13.6 s 11.7-14.9 [facility] Laboratory - Hematology and Cell countsOrdered By: Dr. Hurley on 07-11-2022 Erythrocyte distribution width (RBC) [Entitic vol] 42.4 fL 35.1-43.9 [facility] Erythrocyte distribution width (RBC) [Ratio] 13.2 % 11.6-14.6 [facility] Immature granulocytes/100 WBC (Bld) 0.500 % 0.0-0.9 [facility] Comment on above: IG% - Immature Granu locytes (promyelocytes, myelocytes and metamyelocytes) > 1% indicates that a LEFT SHIFT is Present. MCH (RBC) [Entitic mass] 28.4 pg 27.0-32.0 [facility] Nucleated RBC/100 WBC (Bld) [Ratio] 0 % 0-5 [facility] MCHC Auto (RBC) [Mass/Vol]Or dered By: Dr. Hurley on 07-11-2022 MCHC (RBC) [Mass/Vol] 32.3 g/dL 32-36 [facility] No Panel InformationOrdered By: Dr. Hurley on 07-11-2022 Estimated GFR (MDRD) Amer 123 mL/min >60 [facility] Comment on above: GFR Calc Estimated GFR (MDRD) Non-Af Amer 101 mL/min >60 [facility] Comment on above: Non- GFR Calc Troponin I High Sensitivity 8 pg/mL 3.0-78.0 [facility] Comment on above: Please Note: New María t Units and Gender Specific Reference Ranges. For more information see Policy Stat Procedure [place] High Sensitivity Troponin (TNIH) and attachments. Platelets bldOrdered By: Dr. Hurley on 07-11-2022 Platelets (Bld) [#/Vol] 320 10*3/uL 150-450 [facility] Serum or plasma calcium david urement (mass/volume)Ordered By: Dr. Hurley on 07-11-2022 Calcium [Mass/Vol] 9.4 mg/dL 8.5-10.1 [facility] Serum or plasma creatinine m easurement (mass/volume)Ordered By: Dr. Hurley on 07-11-2022 Creatinine [Mass/Vol] 0.84 mg/dL 0.70-1.30 [facility] Comment on above: The validity of the calculated GFR & GFRAA in patients over 70 years has not been determined. Clinical correlation is essential. Serum or plasma urea nitroge n measurement (mass/volume)Ordered By: Dr. Hurley on 07-11-2022 Urea nitrogen [Mass/Vol] 13 mg/dL 7-18 [facility] Thin prep Papanicolaou smear with manual screeningOrdered By: Dr. Hurley on 07-11-2022 Thin prep Papanicolaou smear with manual screening 0 5-15 [facility] Basophil percentageOrdered B y: David Cummins on 04-30-2022 Bilirubin [Mass/Vol] 1.60 mg/dL 0.20-1.00 [facility] Comment on above: For patients on eltr ombopag therapy, use of Dimension [place] TBIL is not recommended. Chloride [Moles/Vol] 107 mmol/L 98-107 [facility] Cholesterol [Mass/Vol] 202 mg/dL <200 [facility] Comment on above: <200 mg/dL Desirable 200-240 mg/dL Borderline >240 mg/dL High Risk Glucose [Mass/Vol] 191 mg/dL 74-106 [facility] Comment on above: Fasting Glucose resu lt greater than or equal to 126 mg/dL suggests DIABETES MELLITUS per A.D.A. criteria. Potassium [Moles/Vol] 3.9 mmol/L 3.5-5.1 [facility] Protein [Mass/Vol] 6.6 g/dL 6.4-8.2 [facility] Sodium [Moles/Vol] 142 mmol/L 136-145 [facility] Triglyceride [Mass/Vol] 99 mg/dL <199 [facility] Comment on above: The drugs N-Acetylcy steine and Metamizole may falsely depress this assay.Serum Triglycerides Reference Interval Normal <150 mg/dL Borderline high 150 - 199 mg/dL High 200 - 499 mg/dL Very High > or = 500 mg/dL WBC (Bld) [#/Vol] 6.8 10*3/uL 4.4-11.0 [facility] Blood erythrocytes count (nu mber/volume)Ordered By: David Cummins on 04-30-2022 RBC (Bld) [#/Vol] 5.01 10*6/uL 4.6-6.2 [facility] Blood hemoglobin measurement (mass/volume)Ordered By: David Cummins on 04-30-2022 Hemoglobin (Bld) [Mass/Vol] 14.4 g/dL 13.0-16.5 [facility] Blood platelet mean volumeOr dered By: David Cummins on 04-30-2022 Platelet mean volume (Bld) [Entitic vol] 11.4 fL 6.2-12.0 [facility] Determination of erythrocyte mean corpuscular volume (MCV)Ordered By: David Cummins on 04-30-2022 MCV (RBC) [Entitic vol] 88.0 fL 80-94 [facility] Hematocrit Auto (Bld) [Volum e fraction]Ordered By: David Cummins on 04-30-2022 Hematocrit (Bld) [Volume fraction] 44.1 % 40-54 [facility] Iron measurement (mass/mass) Ordered By: David Cummins on 04-30-2022 Iron (Unsp spec) [Mass/Mass] 72 ug/dL 65-175 [facility] Laboratory - Chemistry and C hemistry - challengeOrdered By: David Cummins on 04-30-2022 ALP [Catalytic activity/Vol] 97 U/L 45-117 [facility] ALT [Catalytic activity/Vol] 25 U/L 16-61 [facility] CO2 [Moles/Vol] 30.0 mmol/L 21.0-32.0 [facility] Globulin (S) [Mass/Vol] 3.3 g/dL 2.2-4.2 [facility] Urea nitrogen/Creatinine [Mass ratio] 23.1 mg/mg 10-20 [facility] Laboratory - Hematology and Cell countsOrdered By: David Cummins on 04-30-2022 Erythrocyte distribution width (RBC) [Entitic vol] 42.0 fL 35.1-43.9 [facility] Erythrocyte distribution width (RBC) [Ratio] 13.1 % 11.6-14.6 [facility] MCH (RBC) [Entitic mass] 28.7 pg 27.0-32.0 [facility] MCHC Auto (RBC) [Mass/Vol]Or dered By: David Cummins on 04-30-2022 MCHC (RBC) [Mass/Vol] 32.7 g/dL 32-36 [facility] No Panel InformationOrdered By: David Cummins on 04-30-2022 Estimated GFR (MDRD) Amer 126 mL/min >60 [facility] Comment on above: GFR Calc Estimated GFR (MDRD) Non-Af Amer 104 mL/min >60 [facility] Comment on above: Non- GFR Calc Total Iron Binding Capacity 270 ug/dL 250-450 [facility] Vitamin D 25-Hydroxy 27.8 ng/mL [facility] Comment on above: Vitamin D 25(OH) Sta tus Range Deficiency <20 ng/mL (50nmol/L) Insufficiency 20 - 30 ng/mL (50 - 75 nmol/L) Sufficiency 30 - 100 ng/mL (75 - 250 nmol/L) Toxicity >100 ng/mL (>250 nmol/L) Platelets bldOrdered By: Sixto Cummins on 04-30-2022 Platelets (Bld) [#/Vol] 249 10*3/uL 150-450 [facility] Serum or plasma albumin david urement (mass/volume)Ordered By: David Cummins on 04-30-2022 Albumin [Mass/Vol] 3.3 g/dL 3.2-5.0 [facility] Serum or plasma albumin/glob ulin mass ratioOrdered By: David Cummins on 04-30-2022 Albumin/Globulin [Mass ratio] 1.0 {ratio} 0.9-2.4 [facility] Serum or plasma calcium david urement (mass/volume)Ordered By: David Cummins on 04-30-2022 Calcium [Mass/Vol] 8.8 mg/dL 8.5-10.1 [facility] Serum or plasma cholesterol in HDL measurement (mass/volume)Ordered By: David Cummins on 04-30-2022 Cholesterol in HDL [Mass/Vol] 47 mg/dL >40 [facility] Comment on above: The drugs N-Acetylcy steine and Metamizole may falsely depress this assay. Reference Range HDL <40 mg/dL Low HDL Cholesterol HDL >or= 60 mg/dL High HDL Cholesterol Serum or plasma cholesterol in VLDL measurement (mass/volume)Ordered By: David Cummins on 04-30-2022 Cholesterol in VLDL [Mass/Vol] 20 mg/dL 5-40 [facility] Serum or plasma creatinine m easurement (mass/volume)Ordered By: David Cummins on 04-30-2022 Creatinine [Mass/Vol] 0.82 mg/dL 0.70-1.30 [facility] Comment on above: The validity of the calculated GFR & GFRAA in patients over 70 years has not been determined. Clinical correlation is essential. Serum or plasma low density lipoprotein (LDL) cholesterol measurement (mass/volume)Ordered By: David Cummins on 04-30-2022 Cholesterol in LDL [Mass/Vol] 135 mg/dL 0-130 [facility] Serum or plasma urea nitroge n measurement (mass/volume)Ordered By: David Cummins on 04-30-2022 Urea nitrogen [Mass/Vol] 19 mg/dL 7-18 [facility] Thin prep Papanicolaou smear with manual screeningOrdered By: David Cummins on 04-30-2022 Thin prep Papanicolaou smear with manual screening 15 U/L 15-37 [facility] Thin prep Papanicolaou smear with manual screening 5 5-15 [facility] Whole blood hemoglobin A1c/t otal hemoglobin ratio (mass fraction)Ordered By: David Cummins on 04-30-2022 HbA1c (Bld) [Mass fraction] 9.3 % 3.8-5.6 [facility] Comment on above: Normal < 5.7 % Predi abetic 5.7 - 6.4 % Diabetic >or= 6.5 % Please note range changes. Basophil percentageOrdered B y: David Cummins on 01-15-2022 Bilirubin [Mass/Vol] 1.60 mg/dL 0.20-1.00 [facility] Comment on above: For patients on eltr ombopag therapy, use of Dimension [place] TBIL is not recommended. Chloride [Moles/Vol] 104 mmol/L 98-107 [facility] Cholesterol [Mass/Vol] 281 mg/dL <200 [facility] Comment on above: <200 mg/dL Desirable 200-240 mg/dL Borderline >240 mg/dL High Risk Glucose [Mass/Vol] 138 mg/dL 74-106 [facility] Comment on above: Fasting Glucose resu lt greater than or equal to 126 mg/dL suggests DIABETES MELLITUS per A.D.A. criteria. Potassium [Moles/Vol] 3.9 mmol/L 3.5-5.1 [facility] Protein [Mass/Vol] 6.5 g/dL 6.4-8.2 [facility] Sodium [Moles/Vol] 139 mmol/L 136-145 [facility] Triglyceride [Mass/Vol] 125 mg/dL <199 [facility] Comment on above: The drugs N-Acetylcy steine and Metamizole may falsely depress this assay.Serum Triglycerides Reference Interval Normal <150 mg/dL Borderline high 150 - 199 mg/dL High 200 - 499 mg/dL Very High > or = 500 mg/dL Laboratory - Chemistry and C hemistry - challengeOrdered By: David Cummins on 01-15-2022 ALP [Catalytic activity/Vol] 97 U/L 45-117 [facility] ALT [Catalytic activity/Vol] 25 U/L 16-61 [facility] CO2 [Moles/Vol] 29.0 mmol/L 21.0-32.0 [facility] Globulin (S) [Mass/Vol] 3.2 g/dL 2.2-4.2 [facility] Urea nitrogen/Creatinine [Mass ratio] 20.6 mg/mg 10-20 [facility] No Panel InformationOrdered By: David Cummins on 01-15-2022 Estimated GFR (MDRD) Amer 135 mL/min >60 [facility] Comment on above: GFR Calc Estimated GFR (MDRD) Non-Af Amer 112 mL/min >60 [facility] Comment on above: Non- GFR Calc Vitamin D 25-Hydroxy 24.0 ng/mL [facility] Comment on above: Vitamin D 25(OH) Sta tus Range Deficiency <20 ng/mL (50nmol/L) Insufficiency 20 - 30 ng/mL (50 - 75 nmol/L) Sufficiency 30 - 100 ng/mL (75 - 250 nmol/L) Toxicity >100 ng/mL (>250 nmol/L) Serum or plasma albumin david urement (mass/volume)Ordered By: David Cummins on 01-15-2022 Albumin [Mass/Vol] 3.3 g/dL 3.2-5.0 [facility] Serum or plasma albumin/glob ulin mass ratioOrdered By: David Cummins on 01-15-2022 Albumin/Globulin [Mass ratio] 1.0 {ratio} 0.9-2.4 [facility] Serum or plasma calcium david urement (mass/volume)Ordered By: David Cummins on 01-15-2022 Calcium [Mass/Vol] 8.7 mg/dL 8.5-10.1 [facility] Serum or plasma cholesterol in HDL measurement (mass/volume)Ordered By: David Cummins on 01-15-2022 Cholesterol in HDL [Mass/Vol] 44 mg/dL >40 [facility] Comment on above: The drugs N-Acetylcy steine and Metamizole may falsely depress this assay. Reference Range HDL <40 mg/dL Low HDL Cholesterol HDL >or= 60 mg/dL High HDL Cholesterol Serum or plasma cholesterol in VLDL measurement (mass/volume)Ordered By: David Cummins on 01-15-2022 Cholesterol in VLDL [Mass/Vol] 25 mg/dL 5-40 [facility] Serum or plasma creatinine m easurement (mass/volume)Ordered By: David Cummins on 01-15-2022 Creatinine [Mass/Vol] 0.78 mg/dL 0.70-1.30 [facility] Comment on above: The validity of the calculated GFR & GFRAA in patients over 70 years has not been determined. Clinical correlation is essential. Serum or plasma low density lipoprotein (LDL) cholesterol measurement (mass/volume)Ordered By: David Cummins on 01-15-2022 Cholesterol in LDL [Mass/Vol] 212 mg/dL 0-130 [facility] Serum or plasma urea nitroge n measurement (mass/volume)Ordered By: David Cummins on 01-15-2022 Urea nitrogen [Mass/Vol] 16 mg/dL 7-18 [facility] Thin prep Papanicolaou smear with manual screeningOrdered By: David Cummins on 01-15-2022 Thin prep Papanicolaou smear with manual screening 16 U/L 15-37 [facility] Thin prep Papanicolaou smear with manual screening 6 5-15 [facility] Whole blood hemoglobin A1c/t otal hemoglobin ratio (mass fraction)Ordered By: David Cummins on 01-15-2022 HbA1c (Bld) [Mass fraction] 8.8 % 3.8-5.6 [facility] Comment on above: Normal < 5.7 % Predi abetic 5.7 - 6.4 % Diabetic >or= 6.5 % Please note range changes. Absolute lymphocyte counton 08-14-2021 Lymphocytes Auto (Unsp spec) [#/Vol] 1.26 10*3/uL 0.83-4.51 [facility] Work Phone: Basophil percentageon 2021 Basophils/100 WBC (Bld) 0.5 % 0-1 [facility] Work Phone: Chloride [Moles/Vol] 95 mmol/L 98-107 [facility]: Eosinophils/100 WBC (Bld) 0.6 % 0-5 [facility] Work Phone: Glucose [Mass/Vol] 331 mg/dL 74-106 [facility] Work Phone: Comment on above: Glucose result great er than or equal to 200 mg/dLsuggests DIABETES MELLITUS per A.D.A. criteria. Neutrophils (Bld) [#/Vol] 12.9 10*3/uL 2.0-7.7 [facility] Work Phone: Neutrophils/100 WBC (Bld) 82.1 % 47-70 [facility] Work Phone: Potassium [Moles/Vol] 4.1 mmol/L 3.5-5.1 [facility] Work Phone: Sodium [Moles/Vol] 133 mmol/L 136-145 [facility] Work Phone: WBC (Bld) [#/Vol] 15.7 10*3/uL 4.4-11.0 [facility] Work Phone: Blood erythrocytes count (nu mber/volume)on 08-14-2021 RBC (Bld) [#/Vol] 4.28 10*6/uL 4.6-6.2 [facility] Work Phone: Blood hemoglobin measurement (mass/volume)on 08-14-2021 Hemoglobin (Bld) [Mass/Vol] 12.1 g/dL 13.0-16.5 [facility] Work Phone: Blood lymphocytes/100 leukoc yteson 08-14-2021 Lymphocytes/100 WBC (Bld) 8.0 % 19-41 [facility] Work Phone: Blood monocytes/100 leukocyt eson 08-14-2021 Monocytes/100 WBC (Bld) 6.4 % 0-10 [facility] Work Phone: Blood platelet mean volumeon 08-14-2021 Platelet mean volume (Bld) [Entitic vol] 10.9 fL 6.2-12.0 [facility] Work Phone: Determination of erythrocyte mean corpuscular volume (MCV)on 08-14-2021 MCV (RBC) [Entitic vol] 88.6 fL 80-94 [facility] Work Phone: [phone] Hematocrit Auto (Bld) [Volum e fraction]on 08-14-2021 Hematocrit (Bld) [Volume fraction] 37.9 % 40-54 [facility] Work Phone: Laboratory - Chemistry and C hemistry - challengeon 08-14-2021 CO2 [Moles/Vol] 31.0 mmol/L 21.0-32.0 [facility] Work Phone: Urea nitrogen/Creatinine [Mass ratio] 9.1 mg/mg 10-20 [facility] Work Phone: Laboratory - Hematology and Cell countson 08-14-2021 Erythrocyte distribution width (RBC) [Entitic vol] 43.0 fL 35.1-43.9 [facility] Work Phone: [phone] Erythrocyte distribution width (RBC) [Ratio] 13.2 % 11.6-14.6 [facility] Work Phone: Immature granulocytes/100 WBC (Bld) 2.400 % 0.0-0.9 [facility] Work Phone: Comment on above: IG% - Immature Granu locytes (promyelocytes, myelocytes and metamyelocytes) > 1% indicates that a LEFT SHIFT is Present. MCH (RBC) [Entitic mass] 28.3 pg 27.0-32.0 [facility] Work Phone: Nucleated RBC/100 WBC (Bld) [Ratio] 0 % 0-5 [facility] Work Phone: MCHC Auto (RBC) [Mass/Vol]on 08-14-2021 MCHC (RBC) [Mass/Vol] 31.9 g/dL 32-36 [facility] Work Phone: No Panel Informationon 08-14 Estimated Creatinine Clearance Calc 79.66 ml/min [facility] Work Phone: Estimated GFR (MDRD) Amer 102 mL/min >60 [facility] Work Phone: Comment on above: GFR Calc Estimated GFR (MDRD) Non-Af Amer 84 mL/min >60 [facility] Work Phone: Comment on above: Non- GFR Calc SARS-CoV-2 & FLU Antigen (Rapid) [facility] Work Phone: Platelets bldon 08-14-2021 Platelets (Bld) [#/Vol] 373 10*3/uL 150-450 [facility] Work Phone: Serum or plasma calcium david urement (mass/volume)on 08-14-2021 Calcium [Mass/Vol] 8.6 mg/dL 8.5-10.1 [facility] Work Phone: [phone] Serum or plasma creatinine m easurement (mass/volume)on 08-14-2021 Creatinine [Mass/Vol] 0.99 mg/dL 0.70-1.30 [facility] Work Phone: Comment on above: The validity of the calculated GFR & GFRAA in patients over 70 years has not been determined. Clinical correlation is essential. Serum or plasma urea nitroge n measurement (mass/volume)on 08-14-2021 Urea nitrogen [Mass/Vol] 9 mg/dL 7-18 [facility] Work Phone: Thin prep Papanicolaou smear with manual screeningon 08-14-2021 Thin prep Papanicolaou smear with manual screening 7 5-15 [facility] Work Phone: Absolute lymphocyte counton 08-10-2021 Lymphocytes Auto (Unsp spec) [#/Vol] 0.25 10*3/uL 0.83-4.51 [facility] Work Phone: Basophil percentageon 2021 Basophil percentage Not Reportable [facility] Work Phone: [phone] Bilirubin [Mass/Vol] 0.60 mg/dL 0.20-1.00 [facility] Work Phone: Comment on above: For patients on eltr ombopag therapy, use of Dimension [place] TBIL is not recommended. Chloride [Moles/Vol] 95 mmol/L 98-107 [facility] Work Phone: Glucose [Mass/Vol] 259 mg/dL 74-106 [facility] Work Phone: Comment on above: Glucose result great er than or equal to 200 mg/dLsuggests DIABETES MELLITUS per A.D.A. criteria. Neutrophils (Bld) [#/Vol] 24.2 10*3/uL 2.0-7.7 [facility] Work Phone: Potassium [Moles/Vol] 4.5 mmol/L 3.5-5.1 [facility] Work Phone: Protein [Mass/Vol] 6.2 g/dL 6.4-8.2 [facility] Work Phone: [phone] Sodium [Moles/Vol] 134 mmol/L 136-145 [facility] Work Phone: WBC (Bld) [#/Vol] 25.4 10*3/uL 4.4-11.0 [facility] Work Phone: Blood band neutrophil count as percentage of total leukocyteson 08-10-2021 Band form neutrophils/100 WBC (Bld) 1 % 0-5 [facility] Work Phone: Blood erythrocytes count (nu mber/volume)on 08-10-2021 RBC (Bld) [#/Vol] 4.54 10*6/uL 4.6-6.2 [facility] Work Phone: Blood hemoglobin measurement (mass/volume)on 08-10-2021 Hemoglobin (Bld) [Mass/Vol] 12.8 g/dL 13.0-16.5 [facility] Work Phone: Blood lymphocytes/100 leukoc yteson 08-10-2021 Lymphocytes/100 WBC (Bld) 1 % 19-41 [facility] Work Phone: Blood metamyelocytes/100 dixie kocyteson 08-10-2021 Metamyelocytes/100 WBC (Bld) 3 % 0-1 [facility] Work Phone: Blood monocytes/100 leukocyt eson 08-10-2021 Monocytes/100 WBC (Bld) 4 % 0-10 [facility] Work Phone: Blood platelet adequacy dete ction by light microscopyon 08-10-2021 Platelets LM Ql (Bld) ADEQUATE ADEQ [facility] Work Phone: Blood platelet mean volumeon 08-10-2021 Platelet mean volume (Bld) [Entitic vol] 10.4 fL 6.2-12.0 [facility] Work Phone: Blood promyelocytes/100 leuk ocyteson 08-10-2021 Promyelocytes/100 WBC (Bld) 1 % 0-0 [facility] Work Phone: Blood segmented neutrophils/ 100 leukocyteson 08-10-2021 Segmented neutrophils/100 WBC (Bld) 90 % 47-70 [facility] Work Phone: Determination of erythrocyte mean corpuscular volume (MCV)on 08-10-2021 MCV (RBC) [Entitic vol] 87.7 fL 80-94 [facility] Work Phone: Glucose Glucometer (BldC) [M ass/Vol]on 08-10-2021 Glucose [Mass/Vol] 304 mg/dL 74-106 [facility] Work Phone: [phone] Comment on above: MANAGEMENT OF PATIEN T CARE PER NURSING PROTOCOL Hematocrit Auto (Bld) [Volum e fraction]on 08-10-2021 Hematocrit (Bld) [Volume fraction] 39.8 % 40-54 [facility] Work Phone: [phone] Laboratory - Chemistry and C hemistry - challengeon 08-10-2021 ALP [Catalytic activity/Vol] 110 U/L 45-117 [facility] Work Phone: [phone] ALT [Catalytic activity/Vol] 26 U/L 16-61 [facility] Work Phone: [phone] CO2 [Moles/Vol] 35.0 mmol/L 21.0-32.0 [facility] Work Phone: [phone] Globulin (S) [Mass/Vol] 4.4 g/dL 2.2-4.2 [facility] Work Phone: [phone] Urea nitrogen/Creatinine [Mass ratio] 14.0 mg/mg 10-20 [facility] Work Phone: [phone] Laboratory - Hematology and Cell countson 08-10-2021 Erythrocyte distribution width (RBC) [Entitic vol] 43.7 fL 35.1-43.9 [facility] Work Phone: [phone] Erythrocyte distribution width (RBC) [Ratio] 13.6 % 11.6-14.6 [facility] Work Phone: [phone] MCH (RBC) [Entitic mass] 28.2 pg 27.0-32.0 [facility] Work Phone: [phone] MCHC Auto (RBC) [Mass/Vol]on 08-10-2021 MCHC (RBC) [Mass/Vol] 32.2 g/dL 32-36 [facility] Work Phone: [phone] No Panel Informationon 08-10 Estimated Creatinine Clearance Calc 109.53 ml/min [facility] Work Phone: [phone] Estimated GFR (MDRD) Amer 148 mL/min >60 [facility] Work Phone: [phone] Comment on above: GFR Calc Estimated GFR (MDRD) Non-Af Amer 123 mL/min >60 [facility] Work Phone: Comment on above: Non- GFR Calc Platelets bldon 08-10-2021 Platelets (Bld) [#/Vol] 362 10*3/uL 150-450 [facility] Work Phone: RBC morphologyon 08-10-2021 RBC morphology finding Nom (Bld) NORM C+C NORMAL NORM C&C [facility] Work Phone: [phone] Review by pathologiston 07-19 Pathologist review Socrates (Unsp spec) [Interp] Reviewed [facility] Work Phone: Comment on above: Previous reported re sult: Freya lara Edited by: SIMBA on 08/10/21:6467Neutrophilic leukocytosis with left shift. Clinical correlation necessary.Caleb Escalante M.D. 08/10/21 AMENDED REPORT 08/10/21 [id number] PATH REV previously reported as: Freya lara Serum or plasma albumin david urement (mass/volume)on 08-10-2021 Albumin [Mass/Vol] 1.8 g/dL 3.2-5.0 [facility] Work Phone: Serum or plasma albumin/glob ulin mass ratioon 08-10-2021 Albumin/Globulin [Mass ratio] 0.4 {ratio} 0.9-2.4 [facility] Work Phone: [phone] Serum or plasma calcium david urement (mass/volume)on 08-10-2021 Calcium [Mass/Vol] 8.8 mg/dL 8.5-10.1 [facility] Work Phone: [phone] Serum or plasma creatinine m easurement (mass/volume)on 08-10-2021 Creatinine [Mass/Vol] 0.72 mg/dL 0.70-1.30 [facility] Work Phone: Comment on above: The validity of the calculated GFR & GFRAA in patients over 70 years has not been determined. Clinical correlation is essential. Serum or plasma urea nitroge n measurement (mass/volume)on 08-10-2021 Urea nitrogen [Mass/Vol] 10 mg/dL 7-18 [facility] Work Phone: Thin prep Papanicolaou smear with manual screeningon 08-10-2021 Thin prep Papanicolaou smear with manual screening 21 U/L 15-37 [facility] Work Phone: Thin prep Papanicolaou smear with manual screening 4 5-15 [facility] Work Phone: Total cell counton 2 Cells counted Molgen (Bld/Tiss) [#] 100 MANUAL DIFF [facility] Work Phone: Blood blasts/100 leukocyteso n 08-09-2021 Blasts/100 WBC (Bld) 1 % 0-0 [facility] Work Phone: Laboratory - Hematology and Cell countson 08-09-2021 Myelocytes/100 WBC (Bld) 2 % 0-0 [facility] Work Phone: Vancomycin troughon 08-10-19 Vancomycin trough [Mass/Vol] 12.8 ug/mL 5.0-15.0 [facility] Work Phone: Comment on above: VANCOMYCIN STANDARED DRUG THERAPY TROUGH LEVEL: 5.0 - 15.0 mg/L VANCOMYCIN HIGH INTENSITY THERAPY TROUGH LEVEL: 15.0 - 20.0 mg/L High Intensity therapy recommended for serious lifethreatening infections include:- Herdlteanz-Jiioagfyfzum-Egbiiyuxd (Ventilator/Healtcare Associated)-Sepsis PLEASE CONTACT PHARMACY SERVICES (#[id number]) FOR INTERPRETATIONOF RESULTS. Blood eosinophils/100 leukoc yteson 08-08-2021 Eosinophils/100 WBC (Bld) 1 % 0-5 [facility] Work Phone: Laboratory - Chemistry and C hemistry - challengeon 08-07-2021 Magnesium [Mass/Vol] 2.1 mg/dL 1.6-2.6 [facility] Work Phone: Laboratory - Microbiology an d Antimicrobial susceptibilityon 08-07-2021 Bacteria identified Cx Nom (Bld) Meth. resistant Staph. aureus [facility] Work Phone: Bacteria identified Cx Nom (Bld) No growth in 5 days. [facility] Work Phone: No Panel Informationon 08-06 Methicillin-Resist S.aureus DNA PCR Negative Negative [facility] Work Phone: Absolute lymphocyte counton 08-05-2021 Lymphocytes Auto (Unsp spec) [#/Vol] 0.73 10*3/uL 0.83-4.51 [facility] Work Phone: Basophil percentageon 2021 Basophils/100 WBC (Bld) 0.3 % 0-1 [facility] Work Phone: Bilirubin [Mass/Vol] 0.70 mg/dL 0.20-1.00 [facility] Work Phone: Comment on above: For patients on eltr ombopag therapy, use of Dimension [place] TBIL is not recommended. Chloride [Moles/Vol] 104 mmol/L 98-107 [facility] Work Phone: Eosinophils/100 WBC (Bld) 0.1 % 0-5 [facility] Work Phone: Glucose [Mass/Vol] 267 mg/dL 74-106 [facility] Work Phone: Comment on above: Glucose result great er than or equal to 200 mg/dLsuggests DIABETES MELLITUS per A.D.A. criteria. Neutrophils (Bld) [#/Vol] 18.5 10*3/uL 2.0-7.7 [facility] Work Phone: Neutrophils/100 WBC (Bld) 88.4 % 47-70 [facility] Work Phone: Potassium [Moles/Vol] 3.8 mmol/L 3.5-5.1 [facility] Work Phone: Protein [Mass/Vol] 7.6 g/dL 6.4-8.2 [facility] Work Phone: Sodium [Moles/Vol] 135 mmol/L 136-145 [facility] Work Phone: WBC (Bld) [#/Vol] 21.0 10*3/uL 4.4-11.0 [facility]: Blood erythrocytes count (nu mber/volume)on 08-05-2021 RBC (Bld) [#/Vol] 4.98 10*6/uL 4.6-6.2 [facility] Work Phone: Blood hemoglobin measurement (mass/volume)on 08-05-2021 Hemoglobin (Bld) [Mass/Vol] 14.1 g/dL 13.0-16.5 [facility] Work Phone: Blood lymphocytes/100 leukoc yteson 08-05-2021 Lymphocytes/100 WBC (Bld) 3.5 % 19-41 [facility] Work Phone: Blood monocytes/100 leukocyt eson 08-05-2021 Monocytes/100 WBC (Bld) 4.9 % 0-10 [facility] Work Phone: Blood platelet mean volumeon 08-05-2021 Platelet mean volume (Bld) [Entitic vol] 11.5 fL 6.2-12.0 [facility] Work Phone: Bronchoalveolar lavage cultu re with Gram stainon 08-05-2021 Respiratory Culture Meth. resistant Stap h. aureus [facility] Work Phone: Determination of erythrocyte mean corpuscular volume (MCV)on 08-05-2021 MCV (RBC) [Entitic vol] 85.5 fL 80-94 [facility] Work Phone: Glucose Glucometer (BldC) [M ass/Vol]on 08-05-2021 Glucose [Mass/Vol] 212 mg/dL 74-106 [facility] Work Phone: Comment on above: MANAGEMENT OF PATIEN T CARE PER NURSING PROTOCOL Gram stain for investigation of transfusion reactionon 08-05-2021 Microscopic observation Gram stain Nom (Unsp spec) [facility] Work Phone: Hematocrit Auto (Bld) [Volum e fraction]on 08-05-2021 Hematocrit (Bld) [Volume fraction] 42.6 % 40-54 [facility] Work Phone: [phone] Laboratory - Chemistry and C hemistry - challengeon 08-05-2021 ALP [Catalytic activity/Vol] 110 U/L 45-117 [facility] Work Phone: [phone] ALT [Catalytic activity/Vol] 30 U/L 16-61 [facility] Work Phone: [phone] CO2 [Moles/Vol] 20.0 mmol/L 21.0-32.0 [facility] Work Phone: [phone] Globulin (S) [Mass/Vol] 5.2 g/dL 2.2-4.2 [facility] Work Phone: [phone] Urea nitrogen/Creatinine [Mass ratio] 29.0 mg/mg 10-20 [facility] Work Phone: [phone] Laboratory - Hematology and Cell countson 08-05-2021 Erythrocyte distribution width (RBC) [Entitic vol] 41.7 fL 35.1-43.9 [facility] Work Phone: [phone] Erythrocyte distribution width (RBC) [Ratio] 13.3 % 11.6-14.6 [facility] Work Phone: [phone] Immature granulocytes/100 WBC (Bld) 2.800 % 0.0-0.9 [facility] Work Phone: [phone] Comment on above: IG% - Immature Granu locytes (promyelocytes, myelocytes and metamyelocytes) > 1% indicates that a LEFT SHIFT is Present. MCH (RBC) [Entitic mass] 28.3 pg 27.0-32.0 [facility] Work Phone: [phone] Nucleated RBC/100 WBC (Bld) [Ratio] 0 % 0-5 [facility] Work Phone: [phone] MCHC Auto (RBC) [Mass/Vol]on 08-05-2021 MCHC (RBC) [Mass/Vol] 33.1 g/dL 32-36 [facility] Work Phone: No Panel Informationon 08-05 Estimated Creatinine Clearance Calc 84.80 ml/min [facility] Work Phone: Estimated GFR (MDRD) Amer 110 mL/min >60 [facility] Work Phone: Comment on above: GFR Calc Estimated GFR (MDRD) Non-Af Amer 91 mL/min >60 [facility] Work Phone: Comment on above: Non- GFR Calc Platelets bldon 08-05-2021 Platelets (Bld) [#/Vol] 385 10*3/uL 150-450 [facility] Work Phone: Serum or plasma albumin david urement (mass/volume)on 08-05-2021 Albumin [Mass/Vol] 2.4 g/dL 3.2-5.0 [facility] Work Phone: Serum or plasma albumin/glob ulin mass ratioon 08-05-2021 Albumin/Globulin [Mass ratio] 0.5 {ratio} 0.9-2.4 [facility] Work Phone: Serum or plasma calcium david urement (mass/volume)on 08-05-2021 Calcium [Mass/Vol] 9.0 mg/dL 8.5-10.1 [facility] Work Phone: Serum or plasma creatinine m easurement (mass/volume)on 08-05-2021 Creatinine [Mass/Vol] 0.93 mg/dL 0.70-1.30 [facility] Work Phone: Comment on above: The validity of the calculated GFR & GFRAA in patients over 70 years has not been determined. Clinical correlation is essential. Serum or plasma urea nitroge n measurement (mass/volume)on 08-05-2021 Urea nitrogen [Mass/Vol] 27 mg/dL 7-18 [facility] Work Phone: Thin prep Papanicolaou smear with manual screeningon 08-05-2021 Thin prep Papanicolaou smear with manual screening 12 U/L 15-37 [facility] Work Phone: [phone] Thin prep Papanicolaou smear with manual screening 11 5-15 [facility] Work Phone: Whole blood hemoglobin A1c/t otal hemoglobin ratio (mass fraction)on 08-05-2021 HbA1c (Bld) [Mass fraction] 9.3 % 3.8-5.6 [facility] Work Phone: Comment on above: Normal < 5.7 % Predi abetic 5.7 - 6.4 % Diabetic >or= 6.5 % Please note range changes. Absolute lymphocyte counton 08-04-2021 Lymphocytes Auto (Unsp spec) [#/Vol] 0.91 10*3/uL 0.83-4.51 [facility] Work Phone: Basophil percentageon 2021 Basophil percentage 0 SEEN /hpf 0-5 [facility] Work Phone: Lactate [Moles/Vol] 1.3 mmol/L 0.4-2.0 [facility] Work Phone: Basophils/100 WBC (Bld) 0.4 % 0-1 [facility] Work Phone: Bilirubin [Mass/Vol] 1.60 mg/dL 0.20-1.00 [facility] Work Phone: Comment on above: For patients on eltr ombopag therapy, use of Dimension [place] TBIL is not recommended. Chloride [Moles/Vol] 94 mmol/L 98-107 [facility] Work Phone: Eosinophils/100 WBC (Bld) 0.1 % 0-5 [facility] Work Phone: Glucose [Mass/Vol] 287 mg/dL 74-106 [facility] Work Phone: Comment on above: Glucose result great er than or equal to 200 mg/dLsuggests DIABETES MELLITUS per A.D.A. criteria. Lymphocytes/100 WBC (Bld) 5.6 % 19-41 [facility] Work Phone: Monocytes/100 WBC (Bld) 6.2 % 0-10 [facility] Work Phone: Neutrophils (Bld) [#/Vol] 13.8 10*3/uL 2.0-7.7 [facility] Work Phone: Neutrophils/100 WBC (Bld) 84.9 % 47-70 [facility] Work Phone: [phone] Potassium [Moles/Vol] 3.6 mmol/L 3.5-5.1 [facility] Work Phone: [phone] Protein [Mass/Vol] 7.8 g/dL 6.4-8.2 [facility] Work Phone: [phone] Sodium [Moles/Vol] 132 mmol/L 136-145 [facility] Work Phone: [phone] WBC (Bld) [#/Vol] 16.2 10*3/uL 4.4-11.0 [facility] Work Phone: Bilirubin Test strip Ql (U)o n 08-04-2021 Bilirubin Ql (U) Negative Negative [facility] Work Phone: Blood erythrocytes count (nu mber/volume)on 08-04-2021 RBC (Bld) [#/Vol] 5.16 10*6/uL 4.6-6.2 [facility] Work Phone: Blood hemoglobin measurement (mass/volume)on 08-04-2021 Hemoglobin (Bld) [Mass/Vol] 14.7 g/dL 13.0-16.5 [facility] Work Phone: [phone] Blood platelet mean volumeon 08-04-2021 Platelet mean volume (Bld) [Entitic vol] 11.6 fL 6.2-12.0 [facility] Work Phone: [phone] Determination of erythrocyte mean corpuscular volume (MCV)on 08-04-2021 MCV (RBC) [Entitic vol] 86.8 fL 80-94 [facility] Work Phone: Glucose Glucometer (BldC) [M ass/Vol]on 08-04-2021 Glucose [Mass/Vol] 410 mg/dL 74-106 [facility] Work Phone: [phone] Comment on above: MANAGEMENT OF PATIEN T CARE PER NURSING PROTOCOL Hematocrit Auto (Bld) [Volum e fraction]on 08-04-2021 Hematocrit (Bld) [Volume fraction] 44.8 % 40-54 [facility] Work Phone: [phone] Ketones Test strip Ql (U)on 08-04-2021 Ketones Ql (U) 150 mg/dl Negative [facility] Work Phone: [phone] Comment on above: CRITICAL VALUE *H Laboratory - Chemistry and C hemistry - challengeon 08-04-2021 ALP [Catalytic activity/Vol] 116 U/L 45-117 [facility] Work Phone: [phone] ALT [Catalytic activity/Vol] 32 U/L 16-61 [facility] Work Phone: [phone] CO2 [Moles/Vol] 22.0 mmol/L 21.0-32.0 [facility] Work Phone: [phone] Globulin (S) [Mass/Vol] 5.3 g/dL 2.2-4.2 [facility] Work Phone: [phone] Urea nitrogen/Creatinine [Mass ratio] 22.2 mg/mg 10-20 [facility] Work Phone: [phone] Laboratory - Hematology and Cell countson 08-04-2021 Erythrocyte distribution width (RBC) [Entitic vol] 41.0 fL 35.1-43.9 [facility] Work Phone: [phone] Erythrocyte distribution width (RBC) [Ratio] 13.0 % 11.6-14.6 [facility] Work Phone: [phone] Immature granulocytes/100 WBC (Bld) 2.800 % 0.0-0.9 [facility] Work Phone: [phone] Comment on above: IG% - Immature Granu locytes (promyelocytes, myelocytes and metamyelocytes) > 1% indicates that a LEFT SHIFT is Present. MCH (RBC) [Entitic mass] 28.5 pg 27.0-32.0 [facility] Work Phone: MCHC Auto (RBC) [Mass/Vol]on 08-04-2021 MCHC (RBC) [Mass/Vol] 32.8 g/dL 32-36 [facility] Work Phone: [phone] Mucus LM Ql (Urine sed)on Mucus Ql (Urine sed) 0 SEEN /hpf [facility] Work Phone: [phone] Nitrite Test strip Ql (U)on 08-04-2021 Nitrite Ql (U) Negative Negative [facility] Work Phone: [phone] No Panel Informationon 08-04 Streptococcus pneumoniae Antigen (M [facility] Work Phone: [phone] Respiratory Panel (PCR) [facility] Work Phone: [phone] D-Dimer Quantitative (PE/DVT) 1.72 FEU/ug/m 0.27-0.49 [facility] Work Phone: [phone] Comment on above: D-Dimer ELEVATED (>0 .49): Additional studies and clinicalassessments are indicated to conclude diagnosis of:Deep Vein Thrombosis (DVT) or Pulmonary Embolism (PE)CRITICAL VALUE VERIFIED. CALLED TO Linette Adam08/04/21 Laron Rocha.RESULTS READ BACK BY SAME . RESULT(S) PREVIOUSLY REPORTED ON MANUAL REQUISITION DURINGDOWNTIME. Estimated GFR (MDRD) Amer 108 mL/min >60 [facility] Work Phone: Comment on above: GFR Calc Estimated GFR (MDRD) Non-Af Amer 89 mL/min >60 [facility] Work Phone: [phone] Comment on above: Non- GFR Calc Troponin I High Sensitivity 7 pg/mL 3.0-78.0 [facility] Work Phone: [phone] Comment on above: Please Note: New María t Units and Gender Specific Reference Ranges. For more information see Policy Stat Procedure [place] High Sensitivity Troponin (TNIH) and attachments. Platelets bldon 08-04-2021 Platelets (Bld) [#/Vol] 341 10*3/uL 150-450 [facility] Work Phone: [phone] Protein Test strip Ql (U)on 08-04-2021 Protein Ql (U) 30 mg/dl Negative [facility] Work Phone: [phone] Serum or plasma acetone david urement (mass/volume)on 08-04-2021 Acetone [Mass/Vol] SMALL NEG [facility] Work Phone: [phone] Serum or plasma albumin david urement (mass/volume)on 08-04-2021 Albumin [Mass/Vol] 2.5 g/dL 3.2-5.0 [facility] Work Phone: [phone] Serum or plasma albumin/glob ulin mass ratioon 08-04-2021 Albumin/Globulin [Mass ratio] 0.5 {ratio} 0.9-2.4 [facility] Work Phone: [phone] Serum or plasma calcium david urement (mass/volume)on 08-04-2021 Calcium [Mass/Vol] 9.1 mg/dL 8.5-10.1 [facility] Work Phone: [phone] Serum or plasma creatinine m easurement (mass/volume)on 08-04-2021 Creatinine [Mass/Vol] 0.95 mg/dL 0.70-1.30 [facility] Work Phone: Comment on above: The validity of the calculated GFR & GFRAA in patients over 70 years has not been determined. Clinical correlation is essential. Serum or plasma urea nitroge n measurement (mass/volume)on 08-04-2021 Urea nitrogen [Mass/Vol] 21 mg/dL - [facility] Work Phone: [phone] Squamous epithelial cells de tection in urine sediment by light microscopyon 08-04-2021 Epithelial cells.squamous LM Ql (Urine sed) 0-5 SEEN /hpf 0-5 [facility] Work Phone: [phone] Thin prep Papanicolaou smear with manual screeningon 08-04-2021 Thin prep Papanicolaou smear with manual screening 18 U/L 15-37 [facility] Work Phone: [phone] Thin prep Papanicolaou smear with manual screening 16 5-15 [facility] Work Phone: [phone] Urine blood detectionon 07-18 RBC Ql (U) 25 /ul Negative [facility] Work Phone: RBC Ql (U) 0 SEEN /hpf 0-5 [facility] Work Phone: [phone] Urine clarityon 08-04-2021 Clarity (U) Clear Clear [facility] Work Phone: Urine color determinationon 08-04-2021 Color (U) Straw Yellow [facility] Work Phone: [phone] Urine glucose detectionon Glucose Ql (U) 1000 mg/dl Normal [facility] Work Phone: [phone] Urine leukocyte esterase det ection by dipstickon 08-04-2021 Leukocyte esterase Test strip Ql (U) Negative Negative [facility] Work Phone: Urine pHon 08-04-2021 pH (U) 5.0 [pH] 5.0 - 8.0 [facility] Work Phone: Urine sediment bacteria coun t by microscopy (number/high power field)on 08-04-2021 Bacteria LM.HPF (Urine sed) [#/Area] RARE /hpf None Seen [facility] Work Phone: Urine sediment yeast count b y microscopy (number/high powered field)on 08-04-2021 Yeast LM.HPF (Urine sed) [#/Area] 1 /[HPF] None Seen [facility] Work Phone: Urine specific gravity measu rementon 08-04-2021 Specific gravity (U) [Rel density] 1.020 1.002-1.030 [facility] Work Phone: Urobilinogen Auto test strip Ql (U)on 08-04-2021 Urobilinogen Ql (U) Normal mg/dl Normal [facility] Work Phone: Basophil percentageon 2021 Bilirubin [Mass/Vol] 1.60 mg/dL 0.20-1.00 [facility] Work Phone: Comment on above: For patients on eltr ombopag therapy, use of Dimension [place] TBIL is not recommended. Chloride [Moles/Vol] 102 mmol/L 98-107 [facility] Work Phone: [phone] Glucose [Mass/Vol] 410 mg/dL 74-106 [facility] Work Phone: [phone] Comment on above: Glucose result great er than or equal to 200 mg/dLsuggests DIABETES MELLITUS per A.D.A. criteria. Potassium [Moles/Vol] 3.9 mmol/L 3.5-5.1 [facility] Work Phone: [phone] Protein [Mass/Vol] 7.2 g/dL 6.4-8.2 [facility] Work Phone: [phone] Sodium [Moles/Vol] 137 mmol/L 136-145 [facility] Work Phone: [phone] WBC (Bld) [#/Vol] 6.4 10*3/uL 4.4-11.0 [facility] Work Phone: [phone] Blood erythrocytes count (nu mber/volume)on 07-29-2021 RBC (Bld) [#/Vol] 5.16 10*6/uL 4.6-6.2 [facility] Work Phone: [phone] Blood hemoglobin measurement (mass/volume)on 07-29-2021 Hemoglobin (Bld) [Mass/Vol] 14.7 g/dL 13.0-16.5 [facility] Work Phone: [phone] Blood platelet mean volumeon 07-29-2021 Platelet mean volume (Bld) [Entitic vol] 11.2 fL 6.2-12.0 [facility] Work Phone: [phone] Determination of erythrocyte mean corpuscular volume (MCV)on 07-29-2021 MCV (RBC) [Entitic vol] 86.8 fL 80-94 [facility] Work Phone: [phone] Hematocrit Auto (Bld) [Volum e fraction]on 07-29-2021 Hematocrit (Bld) [Volume fraction] 44.8 % 40-54 [facility] Work Phone: [phone] Laboratory - Chemistry and C hemistry - challengeon 07-29-2021 ALP [Catalytic activity/Vol] 101 U/L 45-117 [facility] Work Phone: ALT [Catalytic activity/Vol] 39 U/L 16-61 [facility] Work Phone: [phone] CO2 [Moles/Vol] 27.0 mmol/L 21.0-32.0 [facility] Work Phone: [phone] Globulin (S) [Mass/Vol] 3.8 g/dL 2.2-4.2 [facility] Work Phone: [phone] Urea nitrogen/Creatinine [Mass ratio] 9.4 mg/mg 10-20 [facility] Work Phone: [phone] Laboratory - Hematology and Cell countson 07-29-2021 Erythrocyte distribution width (RBC) [Entitic vol] 40.9 fL 35.1-43.9 [facility] Work Phone: [phone] Erythrocyte distribution width (RBC) [Ratio] 12.9 % 11.6-14.6 [facility] Work Phone: MCH (RBC) [Entitic mass] 28.5 pg 27.0-32.0 [facility] Work Phone: MCHC Auto (RBC) [Mass/Vol]on 07-29-2021 MCHC (RBC) [Mass/Vol] 32.8 g/dL 32-36 [facility] Work Phone: No Panel Informationon 07-29 D-Dimer Quantitative (PE/DVT) < 0.27 FEU/ug/m 0.27-0.49 [facility] Work Phone: Comment on above: NORMAL D-Dimer level (<0.50) indicates no DVT or PE. Estimated GFR (MDRD) Amer 94 mL/min >60 [facility] Work Phone: Comment on above: GFR Calc Estimated GFR (MDRD) Non-Af Amer 78 mL/min >60 [facility] Work Phone: [phone] Comment on above: Non- GFR Calc Platelets bldon 07-29-2021 Platelets (Bld) [#/Vol] 221 10*3/uL 150-450 [facility] Work Phone: Serum or plasma C reactive p rotein measurement (mass/volume)on 07-29-2021 CRP [Mass/Vol] 3.99 mg/L 0.0-3.0 [facility] Work Phone: Comment on above: C-Reactive Protein ( CRP) provides useful information for thediagnosis, therapy and monitoring of inflammatory processesand associated diseases. For the evaluation of Relative Riskfor Cardiovascular Disease, a High Sensitivity CRP (HSCRP)should be ordered. Serum or plasma albumin david urement (mass/volume)on 07-29-2021 Albumin [Mass/Vol] 3.4 g/dL 3.2-5.0 [facility] Work Phone: Serum or plasma albumin/glob ulin mass ratioon 07-29-2021 Albumin/Globulin [Mass ratio] 0.9 {ratio} 0.9-2.4 [facility] Work Phone: Serum or plasma calcium david urement (mass/volume)on 07-29-2021 Calcium [Mass/Vol] 8.5 mg/dL 8.5-10.1 [facility] Work Phone: Serum or plasma creatinine m easurement (mass/volume)on 07-29-2021 Creatinine [Mass/Vol] 1.06 mg/dL 0.70-1.30 [facility] Work Phone: Comment on above: The validity of the calculated GFR & GFRAA in patients over 70 years has not been determined. Clinical correlation is essential. Serum or plasma urea nitroge n measurement (mass/volume)on 07-29-2021 Urea nitrogen [Mass/Vol] 10 mg/dL 7-18 [facility] Work Phone: Thin prep Papanicolaou smear with manual screeningon 07-29-2021 Thin prep Papanicolaou smear with manual screening 27 U/L 15-37 [facility] Work Phone: Thin prep Papanicolaou smear with manual screening 8 5-15 [facility] Work Phone: Basophil percentageon 2021 Bilirubin [Mass/Vol] 1.50 mg/dL 0.20-1.00 [facility] Work Phone: Comment on above: For patients on eltr ombopag therapy, use of Dimension [place] TBIL is not recommended. Chloride [Moles/Vol] 104 mmol/L 98-107 [facility] Work Phone: Cholesterol [Mass/Vol] 207 mg/dL <200 [facility] Work Phone: Comment on above: <200 mg/dL Desirable 200-240 mg/dL Borderline >240 mg/dL High Risk Glucose [Mass/Vol] 214 mg/dL 74-106 [facility] Work Phone: Comment on above: Glucose result great er than or equal to 200 mg/dLsuggests DIABETES MELLITUS per A.D.A. criteria. Potassium [Moles/Vol] 4.2 mmol/L 3.5-5.1 [facility] Work Phone: Protein [Mass/Vol] 6.9 g/dL 6.4-8.2 [facility] Work Phone: Sodium [Moles/Vol] 137 mmol/L 136-145 [facility] Work Phone: Triglyceride [Mass/Vol] 105 mg/dL <199 [facility] Work Phone: Comment on above: The drugs N-Acetylcy steine and Metamizole may falsely depress this assay.Serum Triglycerides Reference Interval Normal <150 mg/dL Borderline high 150 - 199 mg/dL High 200 - 499 mg/dL Very High > or = 500 mg/dL WBC (Bld) [#/Vol] 7.3 10*3/uL 4.4-11.0 [facility] Work Phone: Blood erythrocytes count (nu mber/volume)on 06-26-2021 RBC (Bld) [#/Vol] 5.11 10*6/uL 4.6-6.2 [facility] Work Phone: Blood hemoglobin measurement (mass/volume)on 06-26-2021 Hemoglobin (Bld) [Mass/Vol] 14.7 g/dL 13.0-16.5 [facility] Work Phone: [phone] Blood platelet mean volumeon 06-26-2021 Platelet mean volume (Bld) [Entitic vol] 10.9 fL 6.2-12.0 [facility] Work Phone: [phone] Determination of erythrocyte mean corpuscular volume (MCV)on 06-26-2021 MCV (RBC) [Entitic vol] 86.1 fL 80-94 [facility] Work Phone: [phone] Hematocrit Auto (Bld) [Volum e fraction]on 06-26-2021 Hematocrit (Bld) [Volume fraction] 44.0 % 40-54 [facility] Work Phone: [phone] Iron measurement (mass/mass) on 06-26-2021 Iron (Unsp spec) [Mass/Mass] 67 ug/dL 65-175 [facility] Work Phone: Laboratory - Chemistry and C hemistry - challengeon 06-26-2021 ALP [Catalytic activity/Vol] 89 U/L 45-117 [facility] Work Phone: ALT [Catalytic activity/Vol] 28 U/L 16-61 [facility] Work Phone: [phone] CO2 [Moles/Vol] 29.0 mmol/L 21.0-32.0 [facility] Work Phone: Globulin (S) [Mass/Vol] 3.4 g/dL 2.2-4.2 [facility] Work Phone: [phone] Urea nitrogen/Creatinine [Mass ratio] 18.8 mg/mg 10-20 [facility] Work Phone: [phone] Laboratory - Hematology and Cell countson 06-26-2021 Erythrocyte distribution width (RBC) [Entitic vol] 41.1 fL 35.1-43.9 [facility] Work Phone: [phone] Erythrocyte distribution width (RBC) [Ratio] 13.2 % 11.6-14.6 [facility] Work Phone: [phone] MCH (RBC) [Entitic mass] 28.8 pg 27.0-32.0 [facility] Work Phone: MCHC Auto (RBC) [Mass/Vol]on 06-26-2021 MCHC (RBC) [Mass/Vol] 33.4 g/dL 32-36 [facility] Work Phone: No Panel Informationon 06-26 Estimated GFR (MDRD) Amer 114 mL/min >60 [facility] Work Phone: Comment on above: GFR Calc Estimated GFR (MDRD) Non-Af Amer 94 mL/min >60 [facility] Work Phone: Comment on above: Non- GFR Calc Prostate Specific Antigen Screen 1.04 ng/mL 0.00-4.00 [facility] Work Phone: Comment on above: This test was perfor med using the TPSA assay method for [employer] chemistry system. Values obtained with differentassay methods cannot be used interchangably.When changing PSA assays in the course of monitoring apatient, additional sequential testing should be carriedout to confirm baseline values. Total Iron Binding Capacity 273 ug/dL 250-450 [facility] Work Phone: Vitamin D 25-Hydroxy 25.0 ng/mL [facility] Work Phone: Comment on above: Vitamin D 25(OH) Sta tus Range Deficiency <20 ng/mL (50nmol/L) Insufficiency 20 - 30 ng/mL (50 - 75 nmol/L) Sufficiency 30 - 100 ng/mL (75 - 250 nmol/L) Toxicity >100 ng/mL (>250 nmol/L) Platelets bldon 06-26-2021 Platelets (Bld) [#/Vol] 250 10*3/uL 150-450 [facility] Work Phone: Serum or plasma albumin david urement (mass/volume)on 06-26-2021 Albumin [Mass/Vol] 3.5 g/dL 3.2-5.0 [facility] Work Phone: Serum or plasma albumin/glob ulin mass ratioon 06-26-2021 Albumin/Globulin [Mass ratio] 1.0 {ratio} 0.9-2.4 [facility] Work Phone: Serum or plasma calcium david urement (mass/volume)on 06-26-2021 Calcium [Mass/Vol] 8.0 mg/dL 8.5-10.1 [facility] Work Phone: Serum or plasma cholesterol in HDL measurement (mass/volume)on 06-26-2021 Cholesterol in HDL [Mass/Vol] 42 mg/dL >40 [facility] Work Phone: Comment on above: The drugs N-Acetylcy steine and Metamizole may falsely depress this assay. Reference Range HDL <40 mg/dL Low HDL Cholesterol HDL >or= 60 mg/dL High HDL Cholesterol Serum or plasma cholesterol in VLDL measurement (mass/volume)on 06-26-2021 Cholesterol in VLDL [Mass/Vol] 21 mg/dL 5-40 [facility] Work Phone: Serum or plasma creatinine m easurement (mass/volume)on 06-26-2021 Creatinine [Mass/Vol] 0.90 mg/dL 0.70-1.30 [facility] Work Phone: Comment on above: The validity of the calculated GFR & GFRAA in patients over 70 years has not been determined. Clinical correlation is essential. Serum or plasma low density lipoprotein (LDL) cholesterol measurement (mass/volume)on 06-26-2021 Cholesterol in LDL [Mass/Vol] 144 mg/dL 0-130 [facility] Work Phone: Serum or plasma urea nitroge n measurement (mass/volume)on 06-26-2021 Urea nitrogen [Mass/Vol] 17 mg/dL 7-18 [facility] Work Phone: Thin prep Papanicolaou smear with manual screeningon 06-26-2021 Thin prep Papanicolaou smear with manual screening 14 U/L 15-37 [facility] Work Phone: Thin prep Papanicolaou smear with manual screening 4 5-15 [facility] Work Phone: Whole blood hemoglobin A1c/t otal hemoglobin ratio (mass fraction)on 06-26-2021 HbA1c (Bld) [Mass fraction] 8.6 % 3.8-5.6 [facility] Work Phone: Comment on above: Normal < 5.7 % Predi abetic 5.7 - 6.4 % Diabetic >or= 6.5 % Please note range changes. Bronchoalveolar lavage cultu re with Gram stain Respiratory Culture Meth. resistant Stap h. aureus [facility] Work Phone: Gram stain for investigation of transfusion reaction Microscopic observation Gram stain Nom (Unsp spec) [facility] Work Phone: Laboratory - Microbiology an d Antimicrobial susceptibility Bacteria identified Cx Nom (Bld) No growth in 5 days. [facility] Work Phone: No Panel Information SARS-CoV-2 & FLU Antigen (Rapid) [facility] Work Phone: Streptococcus pneumoniae Antigen (M [facility] Work Phone: Vital Signs Date Time Vital Sign Value Performing Clinician Facility 08-14-2024 17:26-0400 Body height 167.64 cm David Cummins [employer] Work Phone: [facility] 08-14-2024 17:26-0400 Body mass index (BMI) [Ratio] 55.3 kg/m2 David Cummins [employer] Work Phone: [facility] 08-14-2024 17:26-0400 Body temperature 98.4 [degF] David Cummins [employer] Work Phone: [facility] 08-14-2024 17:26-0400 Body weight 155.32 kg David Cummins [employer] Work Phone: [facility] 08-14-2024 17:26-0400 Diastolic blood pressure 85 mm[Hg] David Cummins [employer] Work Phone: [facility] 08-14-2024 17:26-0400 Heart rate 82 /min David Cummins [employer] Work Phone: [facility] 08-14-2024 17:26-0400 Respiratory rate 16 /min David Cummins [employer] Work Phone: [facility] 08-14-2024 17:26-0400 SaO2% (BldA) [Mass fraction] 98 % David Cummins [employer] Work Phone: [facility] 08-14-2024 17:26-0400 Systolic blood pressure 168 mm[Hg] David Cummins [employer] Work Phone: [facility] 12-08-2022 07:20-0400 Blood Pressure Cuff Size PHOEBE BROWN MD [address] [place] [address] 12-08-2022 07:20-0400 Blood Pressure Location PHOEBE BROWN MD [facility] 12-08-2022 07:20-0400 Blood Pressure Method PHOEBE BROWN MD [address] [place] [address] 12-08-2022 07:20-0400 Body temperature 98.06 [degF] PHOEBE BROWN MD [facility] 12-08-2022 07:20-0400 Diastolic Blood Pressure Non-Invasive 102 1 PHOEBE BROWN MD [facility] 12-08-2022 07:20-0400 Heart rate 80 /min PHOEBE BROWN MD [address] [place] [address] 12-08-2022 07:20-0400 Respiratory rate 20 /min PHOEBE BROWN MD [facility] 12-08-2022 07:20-0400 Systolic Blood Pressure Non-Invasive 186 1 PHEOBE BROWN MD [facility] 12-08-2022 06:15-0400 Respiratory rate 18 /min PHOEBE BROWN MD [facility] 12-07-2022 22:20-0400 Body temperature 98.6 [degF] PHOEBE BROWN MD [address] [place] [address] 12-07-2022 22:20-0400 Diastolic Blood Pressure Non-Invasive 86 1 PHOEBE BROWN MD [address] [place] [address] 12-07-2022 22:20-0400 Heart rate 75 /min PHOEBE BROWN MD [address] [place] [address] 12-07-2022 22:20-0400 Respiratory rate 18 /min PHOEBE BROWN MD [address] 12-07-2022 22:20-0400 Systolic Blood Pressure Non-Invasive 175 1 PHOEBE BROWN MD [address] [place] [address] 12-07-2022 14:47-0400 Blood Pressure Location PHOEBE BROWN MD [address] [place] [address] 12-07-2022 14:47-0400 Blood Pressure Method PHOEBE BROWN MD [address] [place] [address] 12-07-2022 14:47-0400 Body temperature 98.24 [degF] PHOEBE BROWN MD [address] [place] [address] 12-07-2022 14:47-0400 Diastolic Blood Pressure Non-Invasive 84 1 PHOEBE BROWN MD [address] [place] [address] 12-07-2022 14:47-0400 Heart rate 76 /min PHOEBE BROWN MD [address] [place] [address] 12-07-2022 14:47-0400 Mean blood pressure 103 mm[Hg] PHOEBE BROWN MD [address] [place] [address] 12-07-2022 14:47-0400 Reason For Taking VItal Signs PHOEBE BROWN MD [address] [place] [address] 12-07-2022 14:47-0400 Systolic Blood Pressure Non-Invasive 153 1 PHOEBE BROWN MD [address] [place] [address] 12-07-2022 09:41-0400 Blood Pressure Location PHOEBE BROWN MD [address] [place] [address] 12-07-2022 09:41-0400 Blood Pressure Method PHOEBE BROWN MD [address] [place] [address] 12-07-2022 08:03-0400 Mean blood pressure 107 mm[Hg] PHOEBE BROWN MD [address] 12-07-2022 08:03-0400 Reason For Taking VItal Signs PHOEBE BROWN MD [address] 12-07-2022 01:17-0400 Heart rate 92 /min PHOEBE BROWN MD [address] [place] [address] 12-06-2022 22:21-0400 Reason For Taking VItal Signs PHOEBE BROWN MD [address] [place] [address] 12-06-2022 11:08-0400 Blood Pressure Cuff Size PHOEBE BROWN MD [address] 12-06-2022 07:12-0400 Blood Pressure Cuff Size PHOEBE BROWN MD [address] [place] [address] 12-06-2022 07:12-0400 Body temperature 98.6 [degF] PHOEBE BROWN MD [address] [place] [address] 12-06-2022 03:03-0400 Heart rate 97 /min PHOEBE BROWN MD [address] [place] [address] 12-05-2022 22:50-0400 Heart rate 114 /min PHOEBE BROWN MD [address] [place] [address] 12-05-2022 20:02-0400 Heart rate 98 /min PHOEBE BROWN MD [address] [place] [address] 12-05-2022 02:28-0400 Heart rate 96 /min PHOEBE BROWN MD [facility] 12-04-2022 22:25-0400 Heart rate 100 /min PHOEBE BROWN MD [facility] 12-04-2022 17:22-0400 Body height 167.6 cm PHOEBE BROWN MD [facility] 12-04-2022 17:22-0400 Body weight 152.6 kg PHOEBE BROWN MD [facility] 12-04-2022 17:22-0400 Body weight 54.33 kg/m2 PHOEBE BROWN MD [facility] 12-04-2022 16:00-0400 Body temperature 101.48 [degF] BOOGIE RELaunchHear DO [facility] Comment on above: Result Comment: dr. peres notified of temp. order for tylenol received. 12-04-2022 16:00-0400 Diastolic Blood Pressure Non-Invasive 97 1 BOOGIE REICHFIELD DO [facility] 12-04-2022 16:00-0400 Heart rate 115 /min BOOGIE REICHPeople Pattern DO [facility] 12-04-2022 16:00-0400 Respiratory rate 25 /[facility] 12-04-2022 16:00-0400 Systolic Blood Pressure Non-Invasive 179 1 BOOGIE REICHFIELD DO [facility] 12-04-2022 14:29-0400 Diastolic Blood Pressure Non-Invasive 71 1 [facility] 12-04-2022 14:29-0400 Heart rate 109 /min [facility] 12-04-2022 14:29-0400 Respiratory rate 20 /min BOOGIE REICHFIELD DO [facility] 12-04-2022 14:29-0400 Systolic Blood Pressure Non-Invasive 169 1 BOOGIE REICHFIELD DO [facility] 12-04-2022 12:11-0400 Diastolic Blood Pressure Non-Invasive 80 1 BOOGIE REICHFIELD DO [facility] 12-04-2022 12:11-0400 Heart rate 104 /min BOOGIE REICHFIELD DO [facility] 12-04-2022 12:11-0400 Respiratory rate 22 /min BOOGIE REICHFIELD DO [facility] 12-04-2022 12:11-0400 Systolic Blood Pressure Non-Invasive 173 1 BOOGIE REICHFIELD DO [facility] 12-04-2022 10:26-0400 Body temperature 98.78 [degF] BOOGIE REICHFIELD DO [facility] 12-04-2022 10:26-0400 Body weight 162.2 kg BOOGIE REICHFIELD DO [facility] 07-30-2022 13:47-0400 Diastolic blood pressure 70 mm[Hg] [employer] David Cummins [employer] Work Phone: [facility] 07-30-2022 13:47-0400 Heart rate 94 /min [employer] David Cummins [employer] Work Phone: [facility] 07-30-2022 13:47-0400 Respiratory rate 16 /min [employer] David Cummins [employer] Work Phone: [facility] 07-30-2022 13:47-0400 SaO2% (BldA) [Mass fraction] 99 % [employer] David Shahpkins [employer] Work Phone: [facility] 07-30-2022 13:47-0400 Systolic blood pressure 120 mm[Hg] [employer] David Shahpkins [employer] Work Phone: [facility] 07-30-2022 12:37-0400 Body mass index (BMI) [Ratio] 63.7 kg/m2 [employer] David Quebradillas [employer] Work Phone: [facility] 07-30-2022 12:37-0400 Body weight 179.9 kg [employer] David Placido [employer] Work Phone: [facility] 07-30-2022 11:10-0400 Body height 167.64 cm [employer] David Placido [employer] Work Phone: [facility] 07-30-2022 11:10-0400 Body temperature 97.8 [degF] [employer] David Quebradillas [employer] Work Phone: [facility] 07-20-2022 13:38-0400 Body weight 176.9 kg [employer] David Placido [employer] Work Phone: [facility] 07-20-2022 13:38-0400 Diastolic blood pressure 72 mm[Hg] [employer] David Cummins [employer] Work Phone: [facility] 07-20-2022 13:38-0400 Heart rate 74 /min [employer] David Placido [employer] Work Phone: [facility] 07-20-2022 13:38-0400 Respiratory rate 18 /min [employer] David Cummins [employer] Work Phone: [facility] 07-20-2022 13:38-0400 SaO2% (BldA) [Mass fraction] 96 % [employer] David Placido [employer] Work Phone: [facility] 07-20-2022 13:38-0400 Systolic blood pressure 130 mm[Hg] [employer] David Shahpkins [employer] Work Phone: [facility] 07-12-2022 16:20-0400 Body temperature 97.6 [degF] [employer] David Shahpkins [employer] Work Phone: [facility] 07-12-2022 16:20-0400 Diastolic blood pressure 76 mm[Hg] [employer] David Cummins [employer] Work Phone: [facility] 07-12-2022 16:20-0400 Heart rate 93 /min [employer] David Quebradillas [employer] Work Phone: [facility] 07-12-2022 16:20-0400 Respiratory rate 15 /min [employer] David Quebradillas [employer] Work Phone: [facility] 07-12-2022 16:20-0400 SaO2% (BldA) [Mass fraction] 96 % [employer] David Placido [employer] Work Phone: [facility] 07-12-2022 16:20-0400 Systolic blood pressure 156 mm[Hg] [employer] David Cummins [employer] Work Phone: [facility] 07-12-2022 16:19-0400 Body mass index (BMI) [Ratio] 57.2 kg/m2 [employer] David Placido [employer] Work Phone: [facility] 07-12-2022 11:50-0400 Body height 167.64 cm [employer] David Placido [employer] Work Phone: [facility] 07-12-2022 11:50-0400 Body weight 160.8 kg [employer] David Cummins [employer] Work Phone: [facility] 07-12-2022 05:28-0400 Inhaled oxygen concentration 21 % [employer] David Cummins [employer] Work Phone: [facility] 07-11-2022 20:07-0400 Body temperature 98.1 [degF] [employer] David Cummins [employer] Work Phone: [facility] 07-11-2022 20:07-0400 Diastolic blood pressure 89 mm[Hg] [employer] David Cummins [employer] Work Phone: [facility] 07-11-2022 20:07-0400 Heart rate 84 /min [employer] David Cummins [employer] Work Phone: [facility] 07-11-2022 20:07-0400 Respiratory rate 18 /min [employer] David Cummins [employer] Work Phone: [facility] 07-11-2022 20:07-0400 SaO2% (BldA) [Mass fraction] 94 % [employer] David Cummins [employer] Work Phone: [facility] 07-11-2022 20:07-0400 Systolic blood pressure 163 mm[Hg] [employer] David Cummins [employer] Work Phone: [facility] 07-11-2022 18:48-0400 Body mass index (BMI) [Ratio] 63.4 kg/m2 [employer] David Cummins [employer] Work Phone: [facility] 07-11-2022 18:48-0400 Body weight 178.3 kg [employer] David Cummins [employer] Work Phone: [facility] 07-11-2022 14:45-0400 Body height 167.64 cm [employer] David Cummins [employer] Work Phone: [facility] 09-13-2021 13:19-0400 Body height 167.64 cm [employer] David Cummins [employer] Work Phone: [facility] Work Phone: 09-13-2021 13:19-0400 Body mass index (BMI) [Ratio] 59 kg/m2 [employer] David Cummins [employer] Work Phone: [facility] Work Phone: 09-13-2021 13:19-0400 Body temperature 97.5 [degF] [employer] David Cummins [employer] Work Phone: [facility] Work Phone: 09-13-2021 13:19-0400 Body weight 165.78 kg [employer] David Cummins [employer] Work Phone: [facility] Work Phone: 09-13-2021 13:19-0400 Diastolic blood pressure 77 mm[Hg] [employer] David Cummins [employer] Work Phone: [facility] Work Phone: 09-13-2021 13:19-0400 Heart rate 101 /min [employer] David Cummins [employer] Work Phone: [facility] Work Phone: 09-13-2021 13:19-0400 Respiratory rate 16 /min [employer] David Cummins [employer] Work Phone: [facility] Work Phone: 09-13-2021 13:19-0400 SaO2% (BldA) [Mass fraction] 94 % [employer] David Cummins [employer] Work Phone: [facility] Work Phone: 09-13-2021 13:19-0400 Systolic blood pressure 125 mm[Hg] [employer] David Cummins [employer] Work Phone: [facility] Work Phone: 08-14-2021 14:44-0400 Respiratory rate 18 /min [employer] David Cummins [employer] Work Phone: [facility] Work Phone: 08-14-2021 14:44-0400 SaO2% (BldA) [Mass fraction] 96 % [employer] David Cummins [employer] Work Phone: [facility] Work Phone: 08-14-2021 13:46-0400 Heart rate 108 /min [employer] David Cummins [employer] Work Phone: [facility] Work Phone: 08-14-2021 12:36-0400 Body height 167.64 cm [employer] David Cummins [employer] Work Phone: [facility] Work Phone: 08-14-2021 12:36-0400 Body mass index (BMI) [Ratio] 58.1 kg/m2 [employer] David Cummins [employer] Work Phone: [facility] Work Phone: 08-14-2021 12:36-0400 Body temperature 96.8 [degF] [employer] David Cummins [employer] Work Phone: [facility] Work Phone: 08-14-2021 12:36-0400 Body weight 163.29 kg [employer] David Cummins [employer] Work Phone: [facility] Work Phone: 08-14-2021 12:36-0400 Diastolic blood pressure 93 mm[Hg] [employer] David Cummins [employer] Work Phone: [facility] Work Phone: 08-14-2021 12:36-0400 Systolic blood pressure 132 mm[Hg] [employer] David Cummins [employer] Work Phone: [facility] Work Phone: 08-10-2021 13:53-0400 Body temperature 98.5 [degF] [employer] David Cummins [employer] Work Phone: [facility] Work Phone: 08-10-2021 13:53-0400 Diastolic blood pressure 65 mm[Hg] [employer] David Cummins [employer] Work Phone: [facility] Work Phone: 08-10-2021 13:53-0400 Heart rate 113 /min [employer] David Cummins [employer] Work Phone: [facility] Work Phone: 08-10-2021 13:53-0400 Respiratory rate 18 /min [employer] David Shahpkins [employer] Work Phone: [facility] Work Phone: 08-10-2021 13:53-0400 SaO2% (BldA) [Mass fraction] 92 % [employer] David Placido [employer] Work Phone: [facility] Work Phone: 08-10-2021 13:53-0400 Systolic blood pressure 135 mm[Hg] [employer] David Cummins [employer] Work Phone: [facility] Work Phone: 08-10-2021 11:07-0400 Inhaled oxygen flow rate 2 L/min [employer] David Cummins [employer] Work Phone: [facility] Work Phone: 08-10-2021 06:00-0400 Body weight 171.5 kg [employer] David Quebradillas [employer] Work Phone: [facility] Work Phone: 08-07-2021 23:34-0400 Inhaled oxygen concentration 21 % [employer] David Placido [employer] Work Phone: [facility] Work Phone: 08-05-2021 11:04-0400 Body height 167.64 cm [employer] David Shahpkins [employer] Work Phone: [facility] Work Phone: 08-05-2021 04:31-0400 Body weight 162.3 kg [facility] Work Phone: 08-05-2021 03:50-0400 Body temperature 98.3 [degF] [facility] Work Phone: 08-05-2021 03:50-0400 Diastolic blood pressure 80 mm[Hg] [facility] Work Phone: 08-05-2021 03:50-0400 Heart rate 102 /min [facility] Work Phone: 08-05-2021 03:50-0400 Respiratory rate 22 /min [facility] Work Phone: 08-05-2021 03:50-0400 SaO2% (BldA) [Mass fraction] 93 % [facility] [facility] Work Phone: 08-05-2021 03:50-0400 Systolic blood pressure 161 mm[Hg] [facility] Work Phone: 08-04-2021 17:06-0400 Body height 167.64 cm [facility] Work Phone: 08-04-2021 17:06-0400 Body mass index (BMI) [Ratio] 57.9 kg/m2 [facility] Work Phone: 08-04-2021 16:47-0400 Body temperature 99.1 [degF] [facility] Work Phone: 08-04-2021 16:47-0400 Diastolic blood pressure 100 mm[Hg] [facility] Work Phone: 08-04-2021 16:47-0400 Heart rate 99 /min [facility] Work Phone: 08-04-2021 16:47-0400 Respiratory rate 21 /min [facility] Work Phone: 08-04-2021 16:47-0400 SaO2% (BldA) [Mass fraction] 99 % [facility] Work Phone: 08-04-2021 16:47-0400 Systolic blood pressure 139 mm[Hg] [facility] Work Phone: 08-04-2021 10:03-0400 Body height 167.64 cm [facility] Work Phone: 08-04-2021 10:03-0400 Body mass index (BMI) [Ratio] 58.1 kg/m2 [facility] Work Phone: 08-04-2021 [id number] Body weight 163.29 kg [facility] Work Phone: Encounters Encounter Date Encounter Type Care Provider Facility Start: 01-23-2025 ambulatory BOOGIE HOSTETLE R WATER MECHANIC-CONTAINER COORDINATOR Facility:[facility] Start: 01-02-2025 ambulatory BOOGIE HOSTETLE R WATER MECHANIC-CONTAINER COORDINATOR Facility:[facility] Start: 11-22-2024 ambulatory BOOGIE KAYLEY Facilit y:[facility] Start: 11-02-2024 End: 11-02-2024 ambulatory David Cummins [employer] Work Phone: -Laboratory Start: 11-02-2024 End: 11-02-2024 Patient encounter procedure BOOGIE KAYLEY [employer] -Laboratory Work Phone: Start: 11-02-2024 End: 11-02-2024 ambulatory BOOGIE KAYLEY Facility:[facility] Start: 08-16-2024 End: 08-16-2024 ambulatory BOOGIE KAYLEY WATER MECHANIC-CONTAINER COORDINATOR Facility:[facility] Start: 08-16-2024 End: 08-16-2024 Patient encounter procedure BOOGIE KAYLEY WATER MECHANIC-CONTAINER COORDINATOR [facility] Start: 08-14-2024 End: 08-14-2024 Emergency department patient visit David Cummins [employer]IE[employer] Work Phone: -Emergency Department Work Phone: Start: 04-29-2024 End: 04-29-2024 Patient encounter procedure BOOGIE KAYLEY [employer] -Laboratory Work Phone: Start: 04-29-2024 End: 04-29-2024 ambulatory BOOGIE KAYLEY Facility:[facility] Start: 02-19-2024 End: 02-23-2024 ambulatory BOOGIE KAYLEY WATER MECHANIC-CONTAINER COORDINATOR Facility:[facility] Start: 02-19-2024 End: 02-23-2024 Outreach Lab MORTEZA MOREL WATER MECHANIC-CONTAINER COORDINATOR [facility] Start: 10-18-2023 ambulatory BOOGIE Valera WATER MECHANIC-CONTAINER COORDINATOR Facility:[facility] Start: 09-26-2023 End: 09-26-2023 ambulatory BOOGIE ZALDIVAR WATER MECHANIC-CONTAINER COORDINATOR Facility:[facility] Start: 09-26-2023 End: 09-26-[address] CUATE SINGLETON DO [facility] Start: 06-15-2023 End: 06-15-2023 ambulatory [facility] Work Phone: Start: 06-15-2023 End: 06-15-2023 Patient encounter procedure [facility]-Laboratory Work Phone: Start: 12-04-2022 End: 12-08-2022 Evaluation and management of inpatient PHOEBEPHOEBE BROWN MD [facility] Start: 12-04-2022 End: 12-04-2022 Emergency department patient visit BOOGIE PERES DO [facility] Start: 07-30-2022 End: 07-30-2022 Emergency department patient visit [employer] David Cummins [employer]IEF [employer] Work Phone: [facility]-Emergency Department Start: 07-27-2022 Registered Referred [employer] Liz Cummins [employer]IE[employer] Work Phone: [facility]-Cardiovascula r Services Start: 07-27-2022 Non-patient / Non-visit [employer] Soto Cummins CHIEF ENG[employer] Work Phone: [facility] Start: 07-27-2022 End: 07-27-2022 ambulatory [employer] David Cummins [employer]IEF [employer] Work Phone: [facility] Work Phone: Start: 07-27-2022 End: 07-27-2022 Patient encounter procedure [employer] David Cummins [employer]IE[employer] Work Phone: [facility]-Cardiovascula r Services Start: 07-20-2022 End: 07-20-2022 Patient encounter procedure [employer] David Cummins CHIEF ENG[employer] Work Phone: [facility] Vascular Surgery Start: 07-16-2022 End: 07-16-2022 ambulatory [employer] David Cummins CHIE[employer] Work Phone: [facility] Work Phone: Start: 07-16-2022 End: 07-16-2022 Patient encounter procedure [employer] David Cummins CHIEF [employer] Work Phone: [facility]-Laboratory Start: 07-12-2022 Non-patient / Non-visit [employer] Soto Cummins CHIEF ENGINE[employer]ERY Work Phone: [facility] Inpatient Physicians Start: 07-12-2022 Non-patient / Non-visit [employer] R nusrat Cummins CHIEF ENGINEER [employer]ERY Work Phone: [facility] Start: 07-11-2022 Non-patient / Non-visit [employer] Soto Cummins CHIEF ENG[employer]ERY Work Phone: [facility]patient [facility]icians Start: 07-11-2022 End: 07-12-2022 Evaluation and management of inpatient [employer] David Cummins CHIEF ENG[employer] Work Phone: [facility]-Progressive Care Unit Start: 07-11-2022 End: 07-12-2022 observation encounter [employer] David Cummins CHIEF ENG[employer] Work Phone: [facility] Work Phone: Start: 05-20-2022 Non-patient / Non-visit [employer] Soto Cummins CHIEF ENGINEER [employer]ERY Work Phone: [facility] Start: 05-20-2022 End: 05-20-2022 ambulatory [employer] David Cummins CHIEF ENG[employer]ERY Work Phone: [facility] Work Phone: Start: 05-20-2022 End: 05-20-2022 Patient encounter procedure [employer] David Cummins CHIEF ENG[employer]ER [employer]ERY Work Phone: [facility]-Cardiovascula r Services Start: 05-17-2022 End: 05-17-2022 ambulatory [employer] David Cummins CHIEF ENGINEER [employer]ERY Work Phone: [facility] Work Phone: Start: 05-17-2022 End: 05-17-2022 Patient encounter procedure [employer] David Cummins CHIEF ENGINEER [employer]ING [employer]OVERY [facility] Start: 04-30-2022 End: 04-30-2022 ambulatory [facility] Work Phone: Start: 04-30-2022 End: 04-30-2022 Patient encounter procedure [facility]-Laboratory Start: 04-15-2022 End: 04-15-2022 ambulatory [facility] Work Phone: Start: 04-15-2022 End: 04-15-2022 Patient encounter procedure [facility] Start: 01-15-2022 End: 01-15-2022 ambulatory [facility] Work Phone: Start: 01-15-2022 End: 01-15-2022 Patient encounter procedure [facility]-Laboratory Start: 10-07-2021 End: 10-07-2021 Patient encounter procedure [employer] David Cummins CHIEF ENGINEER [employer]ERY Work Phone: [facility] Start: 09-23-2021 End: 09-23-2021 Patient encounter procedure DAVID CUMMINS WATER MECHANIC - CONTAINER COORDINATOR [facility] Start: 09-13-2021 End: 09-13-2021 Patient encounter procedure [employer]-Jasbir Cummins CHIEF ENGINEER [employer]OVERY Work Phone: [facility]-Laboratory, Specimen Start: 09-10-2021 End: 09-10-2021 Patient encounter procedure [employer]-Jasbir Cummins CHIEF ENGINEER [employer]OVERY Work Phone: [facility]-Radiology, [facility] Start: 08-14-2021 End: 08-14-2021 Emergency department patient visit [employer]ERY-Jasbir Cummins CHIEF ENGINEER [employer]OVERY Work Phone: [facility]-Emergency Department Start: 08-10-2021 Non-patient / Non-visit [employer] Soto Cummins CHIEF ENGINEER [employer]OVERY Work Phone: [facility] Inpatient Physicians Start: 08-09-2021 Non-patient / Non-visit [employer] Soto Cummins CHIEF ENGINEER [employer]ERY Work Phone: [facility] Start: 08-09-2021 Non-patient / Non-visit [employer] Soto Cummisn CHIEF ENGINEER [employer]OVERY Work Phone: [facility] Start: 08-08-2021 Non-patient / Non-visit [employer] Soto Cummins CHIEF ENGINEER [employer]OVERY Work Phone: [facility] Start: 08-08-2021 Non-patient / Non-visit [employer] Soto Cummins CHIEF ENGINEER [employer]OVERY Work Phone: [facility] Start: 08-07-2021 Non-patient / Non-visit [employer] Soto Cummins CHIEF ENGINEER [employer]OVERY Work Phone: [facility] Start: 08-07-2021 Non-patient / Non-visit [employer] Soto Cummins CHIEF ENGINEER [employer]ERY Work Phone: [facility] Start: 08-07-2021 Non-patient / Non-visit [employer] Soto Cummins CHIEF ENGINEER [employer]OVERY Work Phone: [facility] Start: 08-06-2021 Non-patient / Non-visit [employer] R nusrat Cummins CHIEF ENGINEER [employer]OVERY Work Phone: [facility] Start: 08-05-2021 Non-patient / Non-visit [employer] R nusrat Cummins CHIEF ENGINEER [employer]OVERY Work Phone: [facility] Start: 08-04-2021 End: 08-10-2021 Evaluation and management of inpatient [facility]-Progressive Care Unit Start: 07-29-2021 End: 07-29-2021 Patient encounter procedure [facility]-Laboratory Start: 06-26-2021 End: 06-26-2021 Patient encounter procedure [facility]-Laboratory Procedures Date Procedure Procedure Detail Performing Clinician Start: 11-02-2024 Vitamin D, 25-hydrox y measurement David Cummins [employer] Work Phone: Comment on above: Vitamin D StatusDefi ciency: <20 ng/mL (50nmol/L)Insufficiency: 20-30 ng/mL (50-75 nmol/L)Sufficiency: 30-100 ng/mL (75-250 nmol/L)Toxicity: >100 ng/mL (>250 nmol/L) Start: 04-29-2024 Measurement of renal function David Shahpkins CHIEF [employer] Work Phone: Comment on above: GFR Calc Start: 04-29-2024 Microalbuminuria measurement David Cummins CHIE[employer] Work Phone: Start: 04-29-2024 Prostate specific an tigen measurement David Cummins CHIEF ENG[employer] Work Phone: Comment on above: This test was perfor med using the TPSA assay method for the[employer] chemistry system. Values obtained with differentassay methods cannot be used interchangably.When changing PSA assays in the course of monitoring apatient, additional sequential testing should be carriedout to confirm baseline values. Start: 04-29-2024 Urine microalbumin/creatinine ratio measurement David Shahpkins CHIEF [employer] Work Phone: Start: 07-11-2022 Plain chest X-ray [employer] David Shahpkins CHIEF [employer]ERY Work Phone: Start: 07-11-2022 CT angiography of he ad and neck [employer] David Cummins CHIE[employer] Work Phone: Start: 07-11-2022 CT of head without contrast [employer] David Cummins CHIE[employer] Work Phone: Start: 05-17-2022 Radiologic examinati on of knee [employer] David Cummins CHIE[employer] Work Phone: Start: 04-15-2022 Radiologic examinati on of knee Start: 10-07-2021 Radiologic examinati on of knee [employer] David Cummins [employer]IE[employer] Work Phone: Start: 09-10-2021 Plain chest X-ray [employer] David Cummins CHIE[employer] Work Phone: Start: 08-14-2021 SARS-CoV-2 & FLU Ant igen (Rapid) [employer] David Cummins [employer] Work Phone: Start: 08-14-2021 Plain chest X-ray [employer] David Cummins CHIE[employer] Work Phone: Start: 08-07-2021 Bacteria identified in Blood by Culture [employer] David Cummins CHIE[employer] Work Phone: Start: 08-06-2021 Plain chest X-ray [employer] David Cummins CHIE[employer] Work Phone: Start: 08-05-2021 Investigation of tra nsfusion reaction [employer] David Cummins CHIE[employer] Work Phone: Start: 08-05-2021 Respiratory microbia l culture [employer] David Cummins CHIEF [employer]ERY Work Phone: Start: 08-04-2021 CT angiography of ch est with contrast Start: 08-04-2021 End: 08-04-2021 Legionella pneumophila antigen assay Start: 08-04-2021 Respiratory Panel (PCR) Start: 08-04-2021 Streptococcus pneumo niae Antigen (M Start: 08-04-2021 Plain chest X-ray Start: 07-29-2021 Plain chest X-ray Start: 04-11-2017 Nerve conduction study DAVID CUMMINS WATER MECHANIC - CONTAINER COORDINATOR Start: 03-18-2016 Doppler ultrasonogra phy of vein DAVID CUMMINS WATER MECHANIC - CONTAINER COORDINATOR Bacteria identified in Blood by Culture [employer] David Cummins CHIEF [employer]ERY Work Phone: Investigation of tra nsfusion reaction [employer] David Cummins CHIEF [employer] Work Phone: Legionella pneumophi la antigen assay [employer] David Cummins CHIE[employer] Work Phone: Respiratory microbia l culture [employer] David Cummins CHIEF [employer] Work Phone: SARS-CoV-2 & FLU Ant igen (Rapid) [employer] David Cummins CHIEF [employer] Work Phone: Streptococcus pneumo niae Antigen (M [employer] David Cummins CHIE[employer]ERY Work Phone: Plan of Treatment Date Care Activity Detail Author Start: 07-12-2022 Patient discharge [facility] Start: 07-12-2022 Referral to occupational therapist [facility] Start: 07-11-2022 Continuous pulse oximetry [facility] Start: 07-11-2022 Dual pressure spontaneous ventilation support [facility] Start: 07-11-2022 Following clinical pathway protocol [facility] Start: 07-11-2022 Assessment of risk of venous thromboembolism [facility] Start: 07-11-2022 Cardiac monitoring [facility] Start: 07-11-2022 Care regimes management [facility] Start: 07-11-2022 Catheterization of vein [facility] Start: 07-11-2022 Elevation of head of bed [facility] Start: 07-11-2022 Exercises [facility] Start: 07-11-2022 Implementation of planned interventions [facility] Start: 07-11-2022 Insertion of catheter into peripheral vein [facility] Start: 07-11-2022 Measuring intake and output [facility] Start: 07-11-2022 Notification of physician [facility] Start: 07-11-2022 Oxygen therapy [facility] Start: 07-11-2022 Patient referral to dietitian [facility] Start: 07-11-2022 Providing care according to standard [facility] Start: 07-11-2022 Provision of activity privileges [facility] Start: 07-11-2022 Referral to service [facility] Start: 07-11-2022 Tobacco use cessation education [facility] Start: 07-11-2022 [facility] Start: 07-11-2022 Verification routine [facility] Start: 07-11-2022 Admission procedure [facility] Start: 07-11-2022 Oxygen therapy [facility] Start: 07-11-2022 [facility] Start: 09-13-2021 Bacteria identified in Sputum by Culture [facility] Work Phone: Start: 08-10-2021 Patient discharge [facility] Work Phone: Start: 08-09-2021 Contact precautions [facility] Work Phone: Start: 08-07-2021 Bacteria identified in Blood by Culture Blood Culture [facility] Work Phone: Start: 08-07-2021 Consultation [facility] Work Phone: Start: 08-07-2021 [facility] Work Phone: Start: 08-07-2021 [facility] Work Phone: Start: 08-06-2021 Consultation [facility] Work Phone: Start: 08-05-2021 Incentive spirometry [facility] Work Phone: Start: 08-05-2021 Physiotherapy of chest [facility] Work Phone: Start: 08-05-2021 Methicillin resistant Staphylococcus aureus screening test [facility] Work Phone: Start: 08-05-2021 Continuous positive airway pressure ventilation treatment [facility] Work Phone: Start: 08-04-2021 Application of intermittent pneumatic compression device [facility] Work Phone: Start: 08-04-2021 Assessment of risk of venous thromboembolism [facility] Work Phone: Start: 08-04-2021 Care regimes management [facility] Work Phone: Start: 08-04-2021 Fall prevention [facility] Work Phone: Start: 08-04-2021 Incentive spirometry [facility] Work Phone: Start: 08-04-2021 Inhalation therapy procedure [facility] Work Phone: Start: 08-04-2021 Insertion of catheter into peripheral vein [facility] Work Phone: Start: 08-04-2021 Introduction of urinary catheter [facility] Work Phone: Start: 08-04-2021 Measuring intake and output [facility] Work Phone: Start: 08-04-2021 Oxygen therapy [facility] Work Phone: Start: 08-04-2021 Providing care according to standard [facility] Work Phone: Start: 08-04-2021 Provision of activity privileges [facility] Work Phone: Start: 08-04-2021 Referral to service [facility] Work Phone: Start: 08-04-2021 [facility] Work Phone: Start: 08-04-2021 Following clinical pathway protocol [facility] Work Phone: Start: 08-04-2021 Admission procedure [facility] Work Phone: Start: 08-04-2021 Bacteria identified in Blood by Culture Blood Culture [facility] Work Phone: Cardiac event recording [facility] Patient Education Diabetes: Meal Planning [facility] Work Phone: Patient referral [facility] Work Phone: Respiratory microbia l culture Respiratory Culture [facility] Work Phone: Payers Date Payer Category Payer Self-pay [id number] 2022 Medicare [id number] 2020 Medicare [id number] 2020 Private Health Insurance [id number] 1970 Unknown [id number] 1969 Unknown [id number] 1969 Unknown [id number] 1969 Unknown [id number] .. [id number] 1969 Unknown [id number] 2.. [id number] 1969 Unknown [id number] .. [id number] 1969 Unknown [id number] ..[id number] 1969 Unknown [id number] .[id number] [id number] 1969 Unknown [id number] .16.8 [id number] Unknown [id number] 2.16.8 [id number] Unknown [id number] .[id number] Unknown [id number] .16.8 [id number] Unknown [id number] 2.16.8 [id number] Social History Date Type Detail Facility Start: 08-04-2021 End: 07-30-2022 Tobacco smoking status ORIS Unknown if ever smoked [facility] Start: 1970 Sex Assigned At Male A [facility] Start: 10-26-2018 End: 07-30-2022 Tobacco smoking status Ex-smoker (finding) [facility] Comment on above: No smoke exposure Start: 07-11-2022 Cigarettes [facility] Start: 09-12-2018 Sex Male (finding) [facility] Medical Equipment Procedure Code Equipment Code [...] 3, # 1 EA, 3 Refill(s), Pharmacy: [id number], DM type 2, goal HbA1... Start: [...] 3, # 1 EA, 3 Refill(s), Pharmacy: [facility], DM type 2, goal HbA1c [...] 3, # 1 EA, 3 Refill(s), Pharmacy: [facility], DM type 2, goal HbA1c < 7.5%, 173, cm, 07/25/22 13:56:00 EDT, Height, 179.6, kg, 07/25/22 13:56:00 EDT, Dosing Weight Start: 08-04-2022 See Instructions , 1 bottle of 100, # 1 EA, 11 Refill(s), Pharmacy: [facility], 170, cm, 04/13/23 13:42:00 EST, [...] 3, # 1 EA, 3 Refill(s), Pharmacy: [facility], DM type 2, goal HbA1c < 7.5%, 168, cm, 07/07/23 9:06:00 EDT, Height, 157.3, kg, 07/07/23 9:06:00 EDT, Dosing Weight Start: 07-18-2023 See Instructions , 1 bottle of 100, # 1 EA, 11 Refill(s), Pharmacy: [facility], 170, cm, 04/13/23 13:42:00 EST, [...] 3, # 1 EA, 3 Refill(s), Pharmacy: [facility], DM type 2, goal HbA1c < 7.5%, 168, cm, 07/07/23 9:06:00 EDT, Height, 157.3, kg, 07/07/23 9:06:00 EDT, Dosing Weight Start: 07-18-2023 See Instructions , 1 bottle of 100, # 1 EA, 11 Refill(s), Pharmacy: [facility], 169, cm, 05/17/24 10:17:00 EST, Height, 154.2, kg, 05/17/24 10:17:00 EST, Dosing Weight Start: 05-29-2024 See Instructions , qs 1 month supply, # 1 EA, 11 Refill(s), 158.3 Start: 05-21-2020 See Instructions , 31G/8mm pen needles, four pen needles per day secondary to the quick acting & bolus insulins. Dx: E11.9, # 400 EA, 3 Refill(s), Pharmacy: [facility], DM type 2, goal HbA1c < 7.5%, 169, cm, 05/17/24 10:17:00 EST, Height, 154.4, kg, 06/03/24 14:04:00 EDT, Dosing Weight Start: 06-12-2024 See Instructions , 1 bottle of 100, # 1 EA, 11 Refill(s), Pharmacy: [facility], 169, cm, 05/17/24 10:17:00 EST, Height, 154.2, kg, 05/17/24 10:17:00 EST, Dosing Weight Start: 05-29-2024 See Instructions , qs 1 month supply, # 1 EA, 11 Refill(s), 158.3 Start: 05-21-2020 See Instructions , 31G/8mm pen needles, four pen needles per day secondary to the quick acting & bolus insulins. Dx: E11.9, # 400 EA, 3 Refill(s), Pharmacy: [facility], DM type 2, goal HbA1c < 7.5%, 169, cm, 05/17/24 10:17:00 EST, Height, 154.4, kg, 06/03/24 14:04:00 EDT, Dosing Weight Start: 06-12-2024 Goals Date Patient Goal Desired Activity /State Functional Status Date Assessment Result Facility 12-08-2022 Functional Status Repositions self [facility] 12-08-2022 Functional Status Door open, Room check performed [facility] 12-08-2022 Functional Status [facility] 12-08-2022 Functional Status [facility] 12-08-2022 Functional Status 3am-7am [facility] 12-07-2022 Functional Status 100 [facility] 12-07-2022 Functional Status [facility] 12-07-2022 Functional Status 100 [facility] 12-07-2022 Functional Status Done [facility] 12-07-2022 Functional Status [facility] 12-06-2022 Functional Status Independent [facility] 12-06-2022 Functional Status Ambulation Ambulation i n Room [facility] 12-06-2022 Functional Status [facility] 12-06-2022 Functional Status [facility] 12-06-2022 Functional Status [facility] 12-05-2022 Functional Status [facility] 12-05-2022 Functional Status Single level home [facility] 12-05-2022 Functional Status [facility] 12-04-2022 Functional Status Sequential Com pression Device bilateral knee high removed/off [facility] 12-04-2022 Functional Status Sensory Deficits None A [facility] 12-04-2022 Functional Status Ambulation in [facility] 07-12-2022 Functional status Ambulates;Up ad gurwinder Daley [facility] Work Phone: 08-10-2021 Functional status Up ad gurwinder;Chair [facility] Work Phone: 08-05-2021 Functional status Activity Abili ty Standby Assist;With Assist of 1 [facility] Work Phone: Mental Status Date Assessment Result Facility 12-08-2022 Mental Status Orientation Oriented x 4 [facility] 12-07-2022 Mental Status [facility] 12-07-2022 Mental Status [facility] 12-06-2022 Mental Status [facility] 12-04-2022 Mental Status Orientation Oriented x 4 [facility] 07-30-2022 Cognitive function Level Of Cons ciousness Awake;Alert;Appropriate [facility] Work Phone: 07-12-2022 Cognitive function Voice/Name [facility] Work Phone: 07-11-2022 Cognitive function Patient Orien tation Person;Place;Time [facility] Work Phone: 08-10-2021 Cognitive function Voice/Name [facility] Work Phone: 08-05-2021 Cognitive function Voice/Name [facility] Work Phone: Clinical Notes 07-11-2022 to [...] a prescription antihistamine, oral diphenhydramine is an uwxd-ftb-laanyxh antihistamine available at pharmacies and grocery stores. [...] or colored drainage from the affected area 3300-5333 [employer]. [address] [place] [address], [place] [address]. All rights reserved. This information is not intended as a substitute for professional medical care. Always follow your healthcare professional's instructions. Follow Up Care 08/14/2024 18:03:25 With:BOOGIE ZALDIVAR Address: [address], [place] [id number]- [phone] When:2-4 days [facility] 08-14-2024 Note Discharge Instructions Thank you for allowing [facility] to assist you with your healthcare needs. The following is important discharge information regarding your hospital visit. Diagnosis from Today's Visit Allergic reaction to drug What to Do Next Instructions from Your Care Team No qualifying data available. Post Acute Orders No qualifying data available. You Need to Schedule the Following Appointments Follow Up with BOOGIE ZALDIVAR When:Within 2-4 days Where:[address] [place] [phone] Allergies Bee Stings Unknown Byetta Prefilled Pen Hill sick SMZ-TMP DS Rash amoxicillin amoxicillin metFORMIN [...] pharmacies. Medication Leaflets doxycycline (oral/injection) (DOX susan KEANU laura) Acticlate, Adoxa, Alodox, Avidoxy, Doryx, Lymepak, [...] or life-threatening conditions such as anthrax or [place] spotted fever. The benefit of treating a [...] may report side effects to FDA at 3-261-USH-7474. What other drugs will affect doxycycline? Sometimes it is not safe to use certain medicines at the same time. Some drugs can affect your blood levels of other drugs you use, which may increase side effects or make the medicines less effective. Other drugs may affect doxycycline, including prescription and bqcm-acr-eyumscn medicines, vitamins, and herbal products. Tell your [...] to ensure that the information provided by [employer]. ('[employer]') is accurate, up-to-date, and complete, but no guarantee is made to that effect. Drug information contained herein may be time sensitive. The [employer] information has been compiled for use by healthcare practitioners and consumers in the [place] and therefore The [employer] does not warrant that uses outside of the [place] are appropriate, unless specifically indicated otherwise. The [employer]'s drug information does not endorse drugs, diagnose patients or recommend therapy. [employer] drug information is an informational resource designed [...] effective or appropriate for any given patient. [facility] does not assume any responsibility for any aspect of healthcare administered with the aid of information [facility] provides. The information contained herein is not intended to cover all possible uses, directions, precautions, warnings, drug interactions, allergic reactions, or adverse effects. If you have questions about the drugs you are taking, check with your doctor, nurse or pharmacist. Copyright 1774-0557 [facility] [employer]. Version: .. Revision Date: 07/02/2024. prednisone (PRED ni sonaydee) Essie What is the most important information [...] may report side effects to FDA at 3-565-QCS-0316. What other drugs will affect prednisone? Sometimes [...] may affect prednisone. This includes prescription and adhs-ihn-yeksxja medicines, vitamins, and herbal products. Not all [...] to ensure that the information provided by [employer]') is accurate, up-to-date, and complete, but no guarantee is made to that effect. Drug information contained herein may be time sensitive. The [employer] information has been compiled for use by healthcare practitioners and consumers in the [place] and therefore The [employer] does not warrant that uses outside of the [place] are appropriate, unless specifically indicated otherwise. [employer] drug information does not endorse drugs, diagnose patients or recommend therapy. [employer] drug information is an informational resource designed [...] effective or appropriate for any given patient. The [employer] does not assume any responsibility for any aspect of healthcare administered with the aid of information [employer] provides. The information contained herein is not intended to cover all possible uses, directions, precautions, warnings, drug interactions, allergic reactions, or adverse effects. If you have questions about the drugs you are taking, check with your doctor, nurse or pharmacist. Copyright 6388-2748 [employer]. Version: 10. Revision Date: 06/14/2018. Education Materials [...] a prescription antihistamine, oral diphenhydramine is an kmqj-awv-koetjwy antihistamine available at pharmacies and grocery stores. [...] or colored drainage from the affected area 9789-8761 [employer]. [address] [place] [address]. All rights reserved. This information is not intended as a substitute for professional medical care. Always follow your healthcare professional's instructions. Additional Information VACCINATE! IT SAVES LIVES! Members of the community who have not yet received the COVID-19 vaccine and would like to receive it can visit one of [facility] vaccine clinics. There are many vaccine clinic locations within the [facility]. For locations and available times, please visit www.gettheshot.coronavirus.[place]. gov/. It is important to note that some COVID mobile vaccine clinics are held outdoors and may be canceled in rainy or stormy conditions. To learn more about pediatric vaccinations (ages 5-11), we invite you to visit the [facility] webpage. https://www.[facility].org/p ages/7836-Zfyet-Tmjjjupkbru-Freq ryrkdy-Qweue-Qifgafwrx.html To learn more about the COVID-19 vaccine, we invite you to visit the CDC website for a list of frequently asked questions. https://www.cdc.gov/coronavirus/ 2019-ncov/vaccines/faq.html [facility] Access Instructions: Stay connected with your healthcare team and access your personal medical information anytime with the [facility] Patient Portal. If you would like a full copy of your medical records please contact the [facility] Medical Records Department Monday through Monday between 8a.m. and 4:30p.m. Please follow the directions below to access the portal: 1.Access the email account you provided upon registration to the [facility].2.Look for an invitation email from [facility].3.Open the email and access the invitation link: Accept Invitation to [facility].Fill in the required hudson to create your account. Sign into [email or web address] with your username and password that you [...] you will allow to register on the [facility] Patient Portal for access to your information. You can also access the [facility] Patient Portal on the [employer]. Simply click on Health Records under Health Data and then click on the [employer] logo. HOW TO SAFELY DISPOSE OF PRESCRIPTION [...] Call your local pharmacy or go to [email or web address] Energy/[email or web address] to find one close to you.3.Make use of household items: Use cat litter or old coffee grounds to dispose medications if other options are not available. Mix your drugs with these household products, seal them in an airtight container and throw it into the garbage. Call [facility]: [phone] to be sure your drugs can be [...] aware that I should contact my doctor. Patient/Supervisor Special Services Signature: Date/Time: Relationship to Patient: Witness Name/Signature: Date/Time: [facility] 12-13-2022 Note . MICRO - Microbiology [...] Locations *1: This test was performed at: [facility], [address] [place] [address], [facility] , [facility] ([place]) 12-09-2022 Note . MICRO - Microbiology PROCEDURE: [...] Locations *1: This test was performed at: [address], [address] [place] [address] ([place]) 12-09-2022 Note . MICRO - Microbiology PROCEDURE: [...] Locations *1: This test was performed at: [address], [address] [place] [address] ([facility] 12-08-2022 Discharge summary Date of Service 12/08/2022 [...] diabetes mellitus with hyperglycemia (E11.65 - ICD-10-CM) [facility] (current) use of insulin (Z79.4 - ICD-10-CM) [...] BID, # 60 tab(s), 0 Refill(s), Pharmacy: [facility], HTN, goal below 140/90, 167.6, cm, [...] tab(s), 0 Refill(s), 12/11/22 10:52:00 EDT, Pharmacy: [facility], Neck pain, 167.6, cm, 12/04/22 17:22:00 [...] Daily, # 120 mL, 0 Refill(s), Pharmacy: [facility], 167.6, cm, 12/04/22 17:22:00 EDT, Height, kg, 12/04/22 17:22:00 EDT, Dosing Weight Ordered: clindamycin 300 mg oral capsule,Dose : 300 mg = 1 cap(s), Oral, q6h, X 10 day(s), # 40 cap(s), 0 Refill(s), 12/18/22 11:14:00 EDT, Pharmacy: [facility], 167.6, cm, 12/04/22 17:22:00 EDT, Height, 152.6, kg, 12/04/22 17:22:00 EDT, Dosing Weight Ordered: mupirocin 2% topical cream,Apply 1 merlene, Topical, Daily, X 10 day(s), # 15 gram(s), 0 Refill(s), Pharmacy: [facility], 167.6, cm, 12/04/22 17:22:00 EDT, Height, 152.6, kg, 12/04/22 17:22:00 EDT, Dosing Weight End of Orders Hospital Course Patient is a 52-year-old male with past medical history significant for morbid obesity, obstructive sleep apnea with CPAP at night, GERD, tobacco use, TIA, hypertension, type 2 diabetes mellitus (on insulin at home), tobacco use. . He originally presented to [facility] emergency department on 12/04/2022 with complaints of posterior neck abscess and cellulitis. He was evaluated by his primary care physician and placed on doxycycline on 12/01/2022, symptoms did not improve and the patient presented to the ER. Patient was then transferred to the [facility] for further evaluation and ENT evaluation. According [...] to be elevated, encouraged to follow-up with outside installer apprentice. Patient encouraged to follow-up with his primary [...] Allergies Bee Stings (Unknown) Byetta Prefilled Pen (Hill sick) SMZ-TMP DS (Rash) amoxicillin (amoxicillin) metFORMIN [...] rash. Warm, Dry, Intact HEENT: Posterior head: [place], slight edema, no drainage, open to air [...] to be elevated -Please follow-up with your outside installer apprentice Thanks for allowing us to participate in [...] the office for an appointment. Where: [address] [facility] [address] [address] [place] [address]- Follow Up with DAVID CUMMINS APRN - CONTAINER COORDINATOR When Within 1-2 days Why: Please call the office to schedule a follow up appointment. Where: [address] [place] [address]- Follow Up Appointments No qualifying data available. [...] by AUSTEN CRUM on 12/08/2022 01:55 PM [facility] 12-08-2022 Hospital Discharge instructions Patient Education [...] Follow these instructions at home: Medicines Take vxtb-lfi-uioqsdu and prescription medicines only as told by [...] pain is severe. ?Do not take other uzty-uxz-mgxxepn pain medicines in addition to prescription pain [...] grains, and fresh fruits and vegetables. ?Take bptk-ylb-ipqdcyi or prescription medicines. ?Limit foods that are [...] or you are no longer ill. Take zdju-fai-uzaimka and prescription medicines only as told by [...] Do I need to meet with a clinical educator? What equipment will I need to care for myself at home? What diabetes medicines do I need? When should I take them? How often do I need to check my blood sugar? What number can I call if I have questions? When is my next doctor's visit? Where can I find a support group for people with diabetes? Where to find more information [place] [employer]: www.diabetes.org [place] Association of Diabetes Educators: www.diabeteseducator.org/patient -resources Contact [...] Document Reviewed: 06/08/2018 Elsevier Patient Education 2020 [employer]. Follow Up Care 12/04/2022 14:32:51 With:LUIS DANIEL BURROWS MD, [facility], [facility] Address: [address] [place] [address]- When:12/15/2022 Comments:Please call the office for an appointment. With:DAVID CUMMINS APRN, CNP Address: [address] [place] [address]- When:1-2 days Comments:Please call the office to schedule a follow up appointment. [facility] 12-08-2022 Note Discharge Instructions Thank you for allowing [facility] to assist you with your healthcare needs. The following is important discharge information regarding your hospital visit. Your Care Team DAVID CUMMINS APRN - MONTY Your Diagnosis DM type 2, goal HbA1c [...] to be elevated -Please follow-up with your outside installer apprentice Thanks for allowing us to participate in your care! Scheduled Follow-Up Appointments Appointment Type When With Where Contact InformationPC OV Follow Up 01/26/2023 02:00 PM EST DAVID CUMMINS APRN - CONTAINER COORDINATOR [facility] Follow Up Appointments Follow Up with LUIS DANIEL BURROWS MD, [facility], [facility] When In 8 days 12/15/2022 EDT Why: Please call the office for an appointment. Where: [address] [place] [address]- Follow Up with DAVID CUMMINS APRN - MONTY When Within 1-2 days Why: Please call the office to schedule a follow up appointment. Where: [address] [facility] [place] [place] [address]- The Following Activity and Diet Have Been [...] Allergies Bee Stings (Unknown) Byetta Prefilled Pen (Hill sick) SMZ-TMP DS (Rash) amoxicillin (amoxicillin) metFORMIN [...] Every day Duration: 5 Days Pickup at [facility] New clindamycin (clindamycin 300 mg oral capsule) 1 cap by mouth Every 6 hours Duration: 10 Days Pickup at [facility] New mupirocin topical (mupirocin 2% topical cream) 1 application Topical Every day Duration: 10 Days Pickup at [facility] New oxyCODONE (oxyCODONE 5 mg oral tablet ( IMMEDIATE release )) 1 tab(s) by mouth Every 6 hours as needed for Pain, scale 4-10 Neck pain Duration: 3 Days Pickup at [facility] Changed amLODIPine (Norvasc 5 mg oral tablet) 1 tab(s) by mouth Two (2) times a day HTN, goal below 140/90 Duration: 30 Days Pickup at [facility] Changed insulin aspart (Novolog) (NovoLOG FlexPen [...] goal <100 Duration: 90 Days Pharmacy Information [facility]: [address] [place], [place] [phone] What How Much When Why Comments Stop [...] Follow these instructions at home: Medicines Take xcha-trj-ntilqcw and prescription medicines only as told by [...] is severe. ? Do not take other enfg-xfs-qjkpxdc pain medicines in addition to prescription pain [...] and fresh fruits and vegetables. ? Take iipl-bke-vjghpwu or prescription medicines. ? Limit foods that [...] or you are no longer ill. Take yhpx-opj-ccbbhkt and prescription medicines only as told by [...] 03/20/2016 Document Revised: 07/22/2019 Document Reviewed: 07/22/2019 ElseABS Medical Patient Education 2020 [employer] Diabetes Basics Diabetes (diabetes mellitus) is [...] Do I need to meet with a clinical educator? What equipment will I need to care for myself at home? What diabetes medicines do I need? When should I take them? How often do I need to check my blood sugar? What number can I call if I have questions? When is my next doctor's visit? Where can I find a support group for people with diabetes? Where to find more information [place] [employer]: www.diabetes.org [place] [employer] of Diabetes Educators: www.diabeteseducator.org/patient -resources Contact [...] Document Reviewed: 06/08/2018 Elsevier Patient Education 2020 [employer] Additional Information VACCINATE! IT SAVES LIVES! Members of the community who have not yet received the COVID-19 vaccine and would like to receive it can visit one of [facility] vaccine clinics. There are many vaccine clinic locations within the [facility]. For locations and available times, please visit https://gettheshot.coronavirus.[place].gov/. It is important to note that some COVID mobile vaccine clinics are held outdoors and may be canceled in rainy or stormy conditions. To learn more about pediatric vaccinations (ages 5-11), we invite you to visit the [facility] webpage. https://www.[facility].org/p ages/8868-Ehydm-Utohdqhvnkv-Freq totftj-Pgsiu-Svpenzcho.html To learn more about the COVID-19 vaccine, we invite you to visit the CDC website for a list of frequently asked questions.https://www.cdc.gov/co ronavirus/2019-ncov/vaccines/faq .html [facility] Patient Portal Access Instructions: Stay connected with your healthcare team and access your personal medical information anytime with the [facility] Patient Portal. Please follow the directions below to create your [facility] account: 1.Access the email account you provided upon registration to the hospital/physician office.2.Look for an invitation email from [facility].3.Open the email and access the invitation link: [facility] to [facility].4.Fill in the required hudson to create your account. To access your account, visit [employer]. Click the blue button labeled Access Patient [...] you will allow to register on the [facility] Patient Portal for access to your information. You can also access the [facility] Patient Portal on the [employer] merlene. Simply click on Patient Portal and then log into your account. If you would like to receive a full copy of your medical records, please contact the [facility] Medical Records Department by calling [phone], Monday through Monday between 8 a.m. and [...] Call your local pharmacy or go to http://Revolucionadolabs.Chai Energy/2T0Jz4k to find one close to you.3.Make use of household items: Use cat litter or old coffee grounds to dispose medications if other options are not available. Mix your drugs with these household products, seal them in an airtight container and throw it into the garbage. Call [facility]: [phone] to be sure your drugs can be [...] aware that I should contact my doctor. Patient/Supervisor Special Services Signature: Date/Time: Relationship to Patient: Witness Name/Signature: Date/Time: [facility] 12-07-2022 History and physical note Date [...] Allergies Bee Stings (Unknown) Byetta Prefilled Pen (Hill sick) SMZ-TMP DS (Rash) amoxicillin (amoxicillin) metFORMIN (Diarrhea) penicillin (Drowsiness) Social History Alcohol Use: Past., 10/26/2018 Home/Environment Self Primary Orthotist:., 10/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 Lung cancer: Mother. Immunizations No qualifying data available. Code Status Code Status - Ordered -- 12/04/22 18:19:00 EDT, Full Code, Constant Order Digitally Signed by LUIS DANIEL BURROWS MD on 12/07/2022 07:09 PM [facility] 12-07-2022 Note Date of Service 12/07/2022 Chief Complaint Posterior neck abscess Subjective Patient is a 52 year old male with a past medical history significant for morbid obesity, obstructive sleep apnea treated with BiPAP at night, GERD, tobacco use, TIA, hypertension, type 2 diabetes mellitus on insulin at home, and tobacco use. Patient originally presented to [facility] emergency department on December 04, 2022 with complaints of posterior neck abscess and cellulitis. Patient had been evaluated by his primary care physician and placed on doxycycline as outpatient on 12/01/2022. Symptoms did not improve and patient then presented to the emergency department for further evaluation. Patient was found to have abscess with cellulitis and transferred to [facility] for further evaluation. Patient has [...] by SHASTA MONTESINOS on 12/07/2022 02:01 PM [facility] 12-07-2022 Note Date of Service 12/07/2022 Chief Complaint Posterior neck abscess Subjective Patient is a 52 year old male with a past medical history significant for morbid obesity, obstructive sleep apnea treated with BiPAP at night, GERD, tobacco use, TIA, hypertension, type 2 diabetes mellitus on insulin at home, and tobacco use. Patient originally presented to [facility] emergency department on December 04, 2022 with complaints of posterior neck abscess and cellulitis. Patient had been evaluated by his primary care physician and placed on doxycycline as outpatient on 12/01/2022. Symptoms did not improve and patient then presented to the emergency department for further evaluation. Patient was found to have abscess with cellulitis and transferred to [facility] for further evaluation. Patient has [...] SHASTA MONTESINOS APRN-MONTY on 12/07/2022 02:01 PM [facility] 12-07-2022 Evaluation + Plan note Extrac [...] ordered Hyperglycemia: Blood sugar of 321 at [facility], did receive insulin regular 8 units IV, blood sugar in 200s on arrival at [facility] Type 2 diabetes mellitus: Insulin lispro sliding [...] subcutaneous twice daily Note was written using SnapUp ethologist software. Some of the meaning of the words and sentences might have changed during ethologist, if there was ever some confusion about the meaning of some sentences, please do not hesitate to contact me. Future Appointments Appointment Date:01/26/2023 02:00:00 PM Scheduled Provider:DAVID CUMMINS APRN, CNP Location:[facility] Appointment Type:PC OV Follow [...] Radiology* XR Knee 3 Views Left 04/15/22 [facility] 09-20-2023 Otolaryngology Progress note Date of [...] AM Digitally Signed by STEPHEN MILLIGAN MD [id number] Note Date of Service 12/06/22 Chief Complaint Neck pain Subjective Patient is a 52 year old male with a past medical history significant for morbid obesity, obstructive sleep apnea treated with BiPAP at night, GERD, tobacco use, TIA, hypertension, type 2 diabetes mellitus on insulin at home, and tobacco use. Patient originally presented to [facility] emergency department on December 04, 2022 with complaints of posterior neck abscess and cellulitis. Patient had been evaluated by his primary care physician and placed on doxycycline as outpatient on 12/01/2022. Symptoms did not improve and patient then presented to the emergency department for further evaluation. Patient was found to have abscess with cellulitis and transferred to [facility] f or further evaluation. Patient [...] 06 11:08) 37.0(DEC 06 11:08) H 37.8(DEC 05:17) Heart Rate 97(DEC 06 03:03) 97(DEC 06 03:03) H 114(DEC 05 22:50) Resp Rate 18(DEC 06 11:08) 18(DEC 05 15:17) 20(DEC 05 22:50) SBP 113(DEC 06 11:08) 100(DEC 06 [...] Time Spent 24 minutes Digitally Signed by RBENDAN SANCHEZ on 12/06/2022 01:38 PM Digitally Signed by BRENDAN SANCHEZ on 12/06/2022 01:57 PM [id number] Note Date of Service 12/06/22 Chief Complaint Neck pain Subjective Patient is a 52 year old male with a past medical history significant for morbid obesity, obstructive sleep apnea treated with BiPAP at night, GERD, tobacco use, TIA, hypertension, type 2 diabetes mellitus on insulin at home, and tobacco use. Patient originally presented to [facility] emergency department on December 04, 2022 with complaints of posterior neck abscess and cellulitis. Patient had been evaluated by his primary care physician and placed on doxycycline as outpatient on 12/01/2022. Symptoms did not improve and patient then presented to the emergency department for further evaluation. Patient was found to have abscess with cellulitis and transferred to [facility] f or further evaluation. Patient [...] Rate 18(DEC 06 11:08) 18(DEC 05 15:17) 20(SEP 18 22:50) SBP 113(DEC 06 11:08) 100(DEC 06 03:03) H 173(SEP 18 22:50) DBP C 50(DEC 06 11:08) C 49(DEC 06 03:03) H 92(NOV 18 20:02) Physical Exam [...] by BRENDAN SANCHEZ on 12/06/2022 01:57 PM [id number] Otolaryngology Progress note Date of Service 12/06/2022 [...] AM Digitally Signed by STEPHEN MILLIGAN MD [facility] [id number] Nurse Progress note Chlorhexidine bath done. Bed linen changed. Digitally Signed by Mauro Matthews RN on 12/05/2022 07:58 PM [facility] [id number] Note Date of Service 12/05/22 Chief Complaint Neck abscess Subjective Patient is a 52 year old male with a past medical history significant for morbid obesity, obstructive sleep apnea treated with BiPAP at night, GERD, tobacco use, TIA, hypertension, type 2 diabetes mellitus on insulin at home, and tobacco use. Patient originally presented to [facility] emergency department on December 04, 2022 with complaints of posterior neck abscess and cellulitis. Patient had been evaluated by his primary care physician and placed on doxycycline as outpatient on 12/01/2022. Symptoms did not improve and patient then presented to the emergency department for further evaluation. Patient was found to have abscess with cellulitis and transferred to [facility] f or further evaluation. Patient [...] Temp 36.8(NOV 18 10:42) 36.8(NOV 18 10:42) 37.2(NOV 17 17:06) Heart Rate 85(NOV 18 10:42) 85(NOV [...] by BRENDAN SANCHEZ on 12/05/2022 01:19 PM [facility] [id number] Note* Exam Date Time Procedure Performing Provider Status 12/05/22 1:23 PM VL Venous US/Doppler Both Legs(for DVT) Auth (Verified) [facility] 09-18-2023 Note Date of Service 12/05/22 Chief Complaint Neck abscess Subjective Patient is a 52 year old male with a past medical history significant for morbid obesity, obstructive sleep apnea treated with BiPAP at night, GERD, tobacco use, TIA, hypertension, type 2 diabetes mellitus on insulin at home, and tobacco use. Patient originally presented to [facility] emergency department on December 04, 2022 with complaints of posterior neck abscess and cellulitis. Patient had been evaluated by his primary care physician and placed on doxycycline as outpatient on 12/01/2022. Symptoms did not improve and patient then presented to the emergency department for further evaluation. Patient was found to have abscess with cellulitis and transferred to [facility] f or further evaluation. Patient [...] 18 10:42) 37.2(NOV 17 17:06) Heart Rate 85(NOV 18 10:42) 85(NOV 18 10:42) 93(NOV 18 06:58) Resp Rate 18(NOV 18 10:42) 18(NOV 17 17:06) 20(SEP 17 18:35) SBP 129(SEP [...] by BRENDAN SANCHEZ on 12/05/2022 01:19 PM [facility] [id number] Otolaryngology Consult note Date of Service 12/05/2022 Reason for Consultation neck abscesses History of Present Illness Mr. Velasco is a 52-year-old male with a past medical history of morbid obesity, NICHOLE, tobacco abuse,history of TIA, hypertension, type 2 diabetes on insulin, and GERD. He presented to [facility] yesterday with complaints of 1 week of worsening neck pain and swelling. He was transferred here to [place] yesterday due to no ENT coverage in [place]. He failed outpatient treatment with doxycycl ine. [...] 52-year-old morbidly obese diabetic male transferred from [facility] yesterday for diagnosisof neck cellulitis. Patient [...] Allergies Bee Stings (Unknown) Byetta Prefilled Pen (Hill sick) SMZ-TMP DS (Rash) amoxicillin (amoxicillin) metFORMIN (Diarrhea) penicillin (Drowsiness) Social History Alcohol Use: Past., 10/26/2018 Home/Environment Self Primary Orthotist:., 10/26/2018 Nutrition/Health Caffeine intake amount: none., 10/26/2018 [...] AM Digitally Signed by STEPHEN MILLIGAN MD [facility] [id number] NoteSINUS TACHYCARDIA RIGHT BUNDLE BRANCH BLOCK INFERIOR INFARCT, OLD Electronic Signature: SADIQ CHU MD 12/05/2022 17:15:57[facility] 09-17-2023 History and physical note Date of Service December 04, 2022 Chief Complaint Neck swelling/abscess History of Present Illness A 52 years old male with past medical history significant for morbid obesity, obstructive sleep apnea treated with BiPAP at night, GERD, tobacco use, TIA, hypertension, type 2 diabetes mellitus on insulin at home, tobacco use was transferred from [facility] with a concern for neck abscesses and [...] high as 38.6 C. Labs done at [place] ER showed white count of 17,200 with left [...] bowel sounds. No rebound or guarding. Negative Melchro's sign. No hepatosplenomegaly. Musculoskeletal: Full range of [...] ordered Hyperglycemia: Blood sugar of 321 at [facility], did receive insulin regular 8 units IV, blood sugar in 200s on arrival at [facility] Type 2 diabetes mellitus: Insulin lispro sliding [...] subcutaneous twice daily Note was written using SnapUp ethologist software. Some of the meaning of the words and sentences might have changed during ethologist, if there was ever some confusion about [...] Allergies Bee Stings (Unknown) Byetta Prefilled Pen (Hill sick) SMZ-TMP DS (Rash) amoxicillin (amoxicillin) metFORMIN (Diarrhea) penicillin (Drowsiness) Social History Alcohol Use: Past., 10/26/2018 Home/Environment Self Primary Orthotist:., 10/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 Lung cancer: Mother. Immunizations No qualifying data available. Code Status Code Status - Ordered -- 12/04/22 18:19:00 EDT, Full Code, Constant Order Digitally Signed by PHOEBE BROWN MD on 12/04/2022 06:36 PM [facility] [id number] Note ORIGINAL EXAMINATION: CT OF THE NECK [...] Sign Date: 12/04/2022 12:12:41 PM Ordering Provider: [facility]04-25-[address] Celis [facility] July 12, 2022 7:44am Note Date/Time July 12, 2022 7:4 5am [facility] Medical Records Department [address] [place] [address] Telemedicine Confirmation Receipt 07/12/22 MR#: [id number] Acct: [id number] Name: SEUN VELASCO Rep #:[id number] : 1970 51 From: Aspen Celis DO PCP: David Cummins, PRISCILLA-Jasbir Sta tus:ADM ИРИНА [facility] has confirmed receipt of a request for visit. This document confirms receipt of the order initiating the consult. To find the results of the consultation, please view the patient's reports for the scanned Telemed Consult. [facility] Work Phone: [phone]) 871-663404-25-2023 History and physical note Author Dr. Cristina [facility] July 11, 2022 10:27pm Note Date/Time July 11, 2022 7:3 9pm [facility] Medical Records Department [address] [place] [address] H&P Exam - Hospitalist 07/11/221938 MR#: [id number] Acct: [id number] Name: SEUN VELASCO Rep #:[id number] : 1970 51 From: Ravin Cristina MD PCP: JAYDEN Smith tus:ADM ИРИНА [facility] - General General Date of Admission: [...] he had same symptomsbut that went away. [facility] Medical History Acute respiratory failure with hypoxia [...] (Auto) 72.4 H, Lymph % (Auto) 20.3, Nicollet % (Auto) 5.2, Eos % (Auto) 0.9, [...] SCDs ordered Charges/Coding Visit Charges Inpatient E&M: 32742 Init Hosp L3 07/11/222226 <Electronically signed by Ravin Cristina MD> Cosigner Signature (if applicable): CC: JAYDEN Cummins; Dr. Ravin Cristina MD~ Signed [facility] Work Phone: 1(840) 841-695104-24-[address] Hurley [facility] July 11, 2022 7:20pm Note Date/Time July 11, 2022 4:5 4pm [facility] Medical Records Department [address] [place] [address] Emergency Department Summary 07/11/22 MR#: [id number] Acct: [id number] Name: SEUN VELASCO Rep #:[id number] : 1970 51 From: Nelson Hurley MD [...] was asleep is what he told me. [facility] Medical History Acute respiratory failure [...] (Auto) 72.4 H Lymph % (Auto) 20.3 Nicollet % (Auto) 5.2 Eos % (Auto) 0.9 [...] MCHC RDW Std Deviation RDW Coeff of Anan Plt Count MPV Immature Gran % (Auto) Neut % (Auto) Lymph % (Auto) Nicollet % (Auto) Eos % (Auto) Baso % [...] Back by Carson Fajardo DO to NELSON UHRLEY and understanding confirmed on 07/11/2022 18:20:18 (ET). [...] depression consistent with acute infarct or ischemia. DE interval was normal. The QRS duration is long 140 ms. QTc is relatively normal at 457 ms. Management Discussion w/another healthcare provider: Hospitalist Discharge Plan Dx/Rx/DC Orders Clinical Impression: Brain TIA, Morbid obesity, History of diabetes mellitus, type II, History of hypertension, Hx of hypercholesterolemia Disposition Disposition: Acute Care Hospital [facility] What to do if you have Problems For any increased pain, shortness of breath, bleeding, nausea or vomiting, chestpain, or any unexpected problems, contact your Primary Care Provider. Call [facility] ([phone]) or report to the closest Emergency Room. Call 911 if necessary. 07/11/221919 <Electronically signed by Nelson Hurley MD> Cosigner Signature (if applicable): CC: CHIEF ENGINEER DRILLING AND RECOVERYRupa Cummins ~ Signed [facility] Work Phone: [phone]) 855-489904-24-[address] Hurley [facility] July 11, 2022 7:20pm Note Date/Time July 11, 2022 4:5 4pm [facility] Medical Records Department [address] [place] [address] Emergency Department Summary 07/11/22 MR#: [id number] Acct: [id number] Name: PRAVEENSEUN Rep #:[id number] : 1970 51 From: Nelson Hurley MD PCP: David Cummins, CHIEF ENGINEER DRILLING [employer] RECOVERY-C Sta tus:REG ER Location: ED HPI History [...] was asleep is what he told me. [facility] Medical History Acute respiratory failure [...] (Auto) 72.4 H Lymph % (Auto) 20.3 Nicollet % (Auto) 5.2 Eos % (Auto) 0.9 [...] (Auto) Neut % (Auto) Lymph % (Auto) Nicollet % (Auto) Eos % (Auto) Baso % [...] DO at 18:02 EDT , ADDENDUM: 07/11/22 3760 IMPRESSION: Negative Brain CT without contrast. N.B. [...] depression consistent with acute infarct or ischemia. DE interval was normal. The QRS duration is long 140 ms. QTc is relatively normal at 457 ms. Management Discussion w/another healthcare provider: Hospitalist Discharge Plan Dx/Rx/DC Orders Clinical Impression: Brain TIA, Morbid obesity, History of diabetes mellitus, type II, History of hypertension, Hx of hypercholesterolemia Disposition Disposition: Acute Care Hospital [facility] What to do if you have Problems For any increased pain, shortness of breath, bleeding, nausea or vomiting, chestpain, or any unexpected problems, contact your Primary Care Provider. Call [facility] ([phone]) or report to the closest Emergency Room. Call 911 if necessary. 07/11/221919 <Electronically signed by Nelson Hurley MD> Cosigner Signature (if applicable): CC: JAYDEN Cummins ~ Signed [facility] Work Phone: Discharge summary Author Dr. Celis [facility] July 12, 2022 4:55pm Note Date/Time July 12, 2022 4:1 0pm [facility] Medical Records Department [address] [place] [address] Discharge Summary 07/12/22 1609 MR#: [id number] Acct: [id number] Name: SEUN VELASCO Nathaniel Rep #:[id number] : 1970 51 From: Aspen Celis DO PCP: JAYDEN Smith Sta tus:ADM ИРИНА Location: [place] [address] Providers Date of Admission: 07/11/22 Date of [...] place andoriented to time Coordination / Balance: [id number] test normal Speech: speech normal Motor Exam: [...] (Auto) 72.4 H, Lymph % (Auto) 20.3, Nicollet % (Auto) 5.2, Eos % (Auto) 0.9, [...] (Auto) 70.3 H, Lymph % (Auto) 20.6, Nicollet % (Auto) 6.9, Eos % (Auto) 1.1, [...] 18:02 EDT Reading Location ID and State: [facility] / [place] Tel [phone], Service support , ADDENDUM: 07/11/22 182 IMPRESSION: Negative Brain CT without contrast. N.B. [...] Physician: David Cummins Performed By: Mercedes Zavala, JESSEECS, RVT D/C Instructions Discharge Diet: Low fat [...] Aspen Celis Primary Care Provider: David Cummins CHIEF ENGINE[employer]OV[employer] Consulting Providers: Ravin Cristina Discharge Orders/Prescriptions Prescriptions: [...] Recorder Preventi (Urgent) Timeframe: 1 Day Facility: [facility] - Location: Cardiovascular Services Ordered By: Dr. Aspen Celis Referrals / Follow Up: Nelson Gamino MD [Med Staff - Active Staff] - Within 1 Month (for carotid artery stenosis) Albert Melgoza MD [Non-Staff -Ordering Privileges] - Within 1 Month (TIA vs Myelopathy) David Cummins NP [employer]IEF ENGINE[employer] RECOVERY-C [Primary Care Provider] - Within 1 Week Disposition Disposition (needs filled in before D/C Order can be placed): Home, Self Care Charges/Coding Visit Charges Inpatient E&M: 24118 Disch Hosp >30min 07/12/22 1655 <Electronically signed by Aspen Celis DO> Cosigner Signature (if applicable): CC: JAYDEN Cummins; Dr. Nelson Gamino MD; Dr. Aspen Celis DO; Dr. Albert Melgoza MD~ Signed [facility] Work Phone: Discharge summary Author Dr. Bella [facility] July 30, 2022 1:39pm Note Date/Time July 30, 2022 12:02 pm [facility] Medical Records Department [address] [place] [address] Emergency Department Summary 07/30/22 MR#: [id number] Acct: [id number] Name: SEUN VELASCO Rep #:[id number] : 1970 51 From: Gabino Odom PCP: [...] to have event monitor placed since then. [facility] Medical History Acute respiratory failure [...] (Auto) 72.2 H Lymph % (Auto) 19.0 Nicollet % (Auto) 6.1 Eos % (Auto) 1.7 [...] Color Urine Clarity Urine pH Ur Specific [place] Urine Protein Urine Glucose (UA) Urine Ketones [...] (Auto) Neut % (Auto) Lymph % (Auto) Nicollet % (Auto) Eos % (Auto) Baso % (Auto) Absolute Neuts (auto) Absolute Lymphs (auto) Nucleated RBC % Sodium Potassium Chloride Carbon Dioxide Anion Gap BUN Creatinine Estim Creat Clear Calc Est GFR (MDRD) Af Amer Est GFR (MDRD) Non-Af BUN/Creatinine Ratio Glucose Calcium Urine Color Yellow Urine Clarity Clear Urine pH 6.0 Ur Specific [place] 1.015 Urine Protein Negative Urine Glucose (UA) [...] Provider: David Cummins NP Referrals: David Cummins CHIEF ENGINE[employer]OVERY, CHIEF ENGINEER [employer]LL[employer] RECOVERY-C [Primary Care Provider] - 1-2 Weeks Activity [...] your Primary Care Provider. Call [facility] ([phone]) or report to the closest Emergency Room. Call 911 if necessary. 07/30/22 2164 <Electronically signed by Gabnio Odom> Cosigner Signature (if applicable): CC: CHIEF ENGINEER [employer]RILLING [employer] RECOVERY-Jasbir Cummins ~ Signed [facility] Work Phone: Evaluation + Plan note Future Appointments Appointment Date:09/30/2021 03:20:00 PM Scheduled Provider:DAVID CUMMINS APRN, CNP Location:[facility] Appointment Type:PC OV Follow Up Appointment Date:10/01/2021 03:00:00 PM Scheduled Provider:DAVID CUMMINS WATER MECHANICTerese Pickard CNP Location:[facility] Appointment Type:PC OV Follow [...] Chest 2 Views (PA & Lateral) 09/09/21 [facility] Evaluation + Plan note Future Appointments Appointment Date:01/26/2023 02:00:00 PM Scheduled Provider:DAVID CUMMINS APRN - CONTAINER COORDINATOR Location:[facility] Appointment Type:PC OV Follow [...] Radiology* XR Knee 3 Views Left 04/15/22 [facility] Evaluation + Plan note Future Appointments Appointment Date:12/11/2023 01:30:00 PM Scheduled Provider:BOOGIE ZALDIVAR APRN-CONTAINER COORDINATOR Location:[facility] Appointment Type:PC OV Future [...] Complete Metabolic Panel 01/25/23 * TIBC 01/25/23 [facility] Evaluation + Plan note Future Appointments Appointment Date:02/26/2024 01:00:00 PM Scheduled Provider:BOOGIE ZALDIVAR Location:[facility] Appointment Type:PC OV Appointment Date:03/27/2024 01:00:00 PM Scheduled Provider: Location:[facility] Appointment Type:MEDS - Diabetic Individual Visit Appointment Date:07/12/2024 01:00:00 PM Scheduled Provider:BOOGIE ZALDIVAR Location:[email or web address] Appointment Type:PC OV Future Scheduled Tests Laboratory* Clostridium difficile (PCR) 12/13/23 * Prostate Specific Antigen 07/12/24 * Stool Gastrointestinal Panel 12/13/23 * A1C Hemoglobin 07/12/24 * A1C Hemoglobin 12/19/23 * Complete Blood Count 12/26/23 * Lipid Profile 07/12/24 * Lipid Profile 12/19/23 * Albumin/Creatinine Ratio, Random Urine 07/12/24 * Complete Metabolic Panel 07/12/24 * Complete Metabolic Panel 12/19/23 [facility] Evaluation + Plan note Future Appointments Appointment Date:08/16/2024 10:30:00 AM Scheduled Provider: Location:[facility] Appointment Type:MEDS - Diabetic Individual Visit Appointment Date:08/16/2024 11:00:00 AM Scheduled Provider: Location:[facility] Appointment Type:NUT Diet Visit Individual Appointment Date:11/15/2024 10:00:00 AM Scheduled Provider:BOOGIE ZALDIVAR Location[facility] Appointment Type:PC OV Future Scheduled Tests [...] Panel 11/14/24 * Complete Metabolic Panel 12/19/23 [facility] evaluation + Plan note Future Appointments [...] Panel 11/14/24 * Complete Metabolic Panel 12/19/23 [facility] evaluation note* Diagnosis Onset Date Resolution Status Acute dyspnea acute Acute respiratory failure with hypoxia acute History of diabetes mellitus acute Hypoxia acute Pneumonia acute [facility] Work Phone: evaluation note* Diagnosis Onset Date Resolution Status Acute dyspnea acute Acute respiratory failure with hypoxia acute History of diabetes mellitus acute Hypoxia acute MRSA bacteremia acute Pneumonia acute Staphylococcal pneumonia acu te [facility] Work Phone: evaluation note* Diagnosis Onset Date Resolution Status Acute dyspnea acute Acute respiratory failure with hypoxia acute History of diabetes mellitus acute Hypoxia acute MRSA bacteremia acute Pneumonia acute Staphylococcal pneumonia acu te MRSA bacteremia acute [facility] Work Phone: evaluation noteNo assessment information available [facility] Work Phone: evaluation note* Diagnosis Onset Date Resolution Status Brain TIA acute History of diabetes mellitus, type II acute History of hypertension acut e Hx of hypercholesterolemia a cute Morbid obesity acute Numbness and tingling acute [facility] Work Phone: Evaluation note* Diagnosis Onset Date Resolution Status Brain TIA acute History of diabetes mellitus, type II acute History of hypertension acut e Hx of hypercholesterolemia a cute Morbid obesity acute Numbness and tingling acute Essential hypertension chron ic [facility] Work Phone: Evaluation note* Diagnosis Onset Date Resolution Status Numbness and tingling resolv ed [facility] Work Phone: Evaluation note* Diagnosis Onset Date Resolution Status Numbness and tingling resolv ed Carotid artery disease nonea ctive [facility] Work Phone: Hospital course Narrative No data available for this section [facility] Discharge instructions No data available for this section [facility] Discharge instructions Additional Instructions History concerning for hypoglycemic event. Labs and urine stable. Glucose 192 in the lab. Make sure you eat your planned meal when you give yourself insulin. Follow-up with your doctor. Return if worsening or recurrent symptoms.[facility] Work Phone: Progress note No data available for this section [facility] Reason for referral (narrative)No reason for referral information availableWVeter[facility] Administration Work Phone: Chief Complaint and Reason for [...] August 04, 2021 1 0:20am Power of Aircraft Layout Worker No August 04, 2021 10:20am Advance Directive Response Recorded Date/ Time Advance Directives No February 12:32am Living Will No August 04, 2021 5 :07pm Power of Aircraft Layout Worker No August 04, 2021 5:07pm Advance Directive Response Recorded Date/ Time Advance Directives No February 12:32am Living Will No August 14, 2021 1 :11pm Power of Aircraft Layout Worker No August 14, 2021 1:11pm Advance Directive Response Recorded Date/ Time Advance Directives No February 11:32pm Living Will No August 14, 2021 1 2:11pm Power of Aircraft Layout Worker No August 14, 2021 12:11pm Advance Directive Response Recorded Date/ Time Advance Directives No February 12:32am Living Will No July 11, 2022 5:00pm Power of Aircraft Layout Worker No July 11 5:00pm Advance Directive Response Recorded Date/ Time Advance Directives No February 12:32am Living Will No July 11, 2022 8:52pm Power of Aircraft Layout Worker No July 11 8:52pm Advance Directive Response Recorded Date/ Time Advance Directives No February 12:32am Living Will No July 30, 2022 1 2:11pm Power of Aircraft Layout Worker No July 30, 2022 12:11pm Advance Directive Response Recorded Date/ Time Living Will No July 30, 2022 1 2:11pm Do you have a Healthcare Power of Aircraft Layout Worker? No July 30, 2022 12:11pm Advance Directives [...] content) Care Team Personnel Name: DAVID CUMMINS WATER MECHANIC - CONTAINER COORDINATOR Position: P4 Advanced Practice Nurse Med Service: Employed Provider Member Role: Primary Care Physician Address: Address: [address] [place] [address]- Care Team Related Persons Name: SEUN VELASCO II Care Teams (unrecognized sec tion and content) Team Status: Active Member Role Status Dates David Cummins CHIEF ENGINEER [employer]LLING [employer] RECOVERY, CHIEF ENGINEER [employer]OVERY-C Family Provider Activ e David Cummins CHIEF ENGINEER [employer]LLING [employer] RECOVERY, CHIEF ENGINEER [employer]OVERY-C Primary Care Provider Active Team Status: Inactive Member Role Status Dates David Cummins CHIEF ENGINEER [employer]LLING [employer] RECOVERY, CHIEF ENGINEER [employer]ING [employer]OVERY-C Primary Care Provider, Attending Provider Active Team Status: Inactive Member Role Status Dates David Cummins CHIEF ENGINEER [employer]LLING [employer] RECOVERY, CHIEF ENGINEER [employer]LLING [employer]OVERY-C Primary Care Provider, Attending Provider, Referring Provider Active Team Status: Active Member Role Status Dates David Cummins CHIEF ENGINEER [employer]LLING [employer]OVERY, CHIEF ENGINEER [employer]LLING [employer]OVERY-C Primary Care Provider Active Dr. Jaden Lucio MD Attending Provider Active Team Status: Active Member Role Status Dates David Cummins CHIEF ENGINEER [employer]RILLING [employer] RECOVERY, CHIEF ENGINEER [employer]ING [employer]OVERY-C Primary Care Provider, Attending Provider Active Team Status: Active Member Role Status Dates David Cummins CHIEF ENGINEER [employer]LLING [employer] RECOVERY, CHIEF ENGINEER [employer]OVERY-C Primary Care Provider, Referring Provider Active Dr. Jaden Lucio MD Attending Provider Active Team Status: Active Member Role Status Dates David Cummins CHIEF ENGINEER [employer]ING [employer]OVERY, CHIEF ENGINEER [employer]OVERY-C Primary Care Provider Active Dr. Nelson Hurley MD Emergency Provider Active Dr. Ravin Cristina MD Admit Provider, Attending Pro vider Active Team Status: Active Member Role Status Dates David Cummins CHIEF ENGINEER [employer]LLING [employer]OVERY, CHIEF ENGINEER [employer]OVERY-C Primary Care Provider Active Dr. Nelson Hurley MD Emergency Provider Active Dr. Ravin Cristina MD Admit Provider, Attending Provider, Other Provider Active Team Status: Active Member Role Status Dates David Cummins CHIEF ENGINEER [employer]LLING [employer] RECOVERY, CHIEF ENGINEER [employer]LLING [employer]OVERY-C Primary Care Provider Active Dr. Jamey Guillermo MD Attending Provider Activ e Team Status: Active Member Role Status Dates David Cummins CHIEF ENGINEER [employer]LLING [employer] RECOVERY, CHIEF ENGINEER [employer]OVERY-C Primary Care Provider Active Dr. Nelson Hurley MD Emergency Provider Active Dr. Ravin Cristina MD Admit Provider, Other Provide r Active Dr. Aspen Celis DO Attending Provider, Other Provide r Active Team Status: Inactive Member Role Status Dates David Cummins CHIEF ENGINEER [employer]LLING [employer] RECOVERY, CHIEF ENGINEER [employer]LLING [employer]OVERY-C Primary Care Provider Active Dr. Nelson Hurley MD Emergency Provider Active Dr. Ravin Cristina MD Admit Provider, Other Provide r Active Dr. Aspen Celis DO Attending Provider Active Team Status: Inactive Member Role Status Dates David Cummins CHIEF ENGINEER [employer]LLING [employer]OVERY, CHIEF ENGINEER [employer]LLING [employer]OVERY-C Primary Care Provider, Referring Provider Active CHITRA Lange Attending Provider Active Team Status: Active Member Role Status Dates David Cummins CHIEF ENGINEER [employer]LLING [employer] RECOVERY, CHIEF ENGINEER [employer]LLING [employer]OVERY-C Primary Care Provider Active Dr. Nelson Gamino MD Attending Provider Active Team Status: Active Member Role Status Dates David Cummins CHIEF ENGINEER [employer]LLING [employer]OVERY, CHIEF ENGINEER [employer]LLING [employer]OVERY-C Primary Care Provider Active CHITRA Lange Attending Provider, Referring Provider Active Team Status: Active Member Role Status Dates David Cummins CHIEF ENGINEER [employer]LLING [employer] RECOVERY, CHIEF ENGINEER [employer]LLING [employer]OVERY-C Primary Care Provider Active Dr. Aspen Celis DO Attending Provider Active Team Status: Inactive Member Role Status Dates David Cummins CHIEF ENGINEER [employer]LLING [employer] RECOVERY, CHIEF ENGINEER [employer]LLING [employer]OVERY-C Primary Care Provider Active Dr. Gabino Bella DO Emergency Provider Active Team Status: Inactive Member Role Status Dates David Cummins CHIEF ENGINEER [employer]RILLING [employer] RECOVERY, CHIEF ENGINEER [employer]RILLING [employer] RECOVERY-C Primary Care Provider Active Noelle Eli PA Attending Provider, Referring Provider Active Team Status: Active Member Role Status Dates David Cummins CHIEF ENGINEER [employer]LLING [employer] RECOVERY, CHIEF ENGINEER [employer]LLING [employer]OVERY-C Primary Care Provider Active Team Status: Inactive Member Role Status Dates David Cummins CHIEF ENGINEER [employer]LLING [employer]OVERY, CHIEF ENGINEER [employer]LLING [employer]OVERY-C Primary Care Provider Active Start: April 292024 End: April 29, 2024 BOOGIE DOUGLASSETJUAN CHIEF ENGINEER [employer]LLING [employer] RECOVERY-C Attending Provider Active Start: April 29, 2024 End: April 29, 2024 BOOGIE DOUGLASSETJUAN CHIEF ENGINEER [employer]LLING [employer]OVERY-C Referring Provider Active Start: April 29, 2024 End: April 29, 2024 Team Status: Inactive Member Role Status Dates David Cummins CHIEF ENGINEER [employer]LLING [employer]OVERY, CHIEF ENGINEER [employer]ING [employer]OVERY-C Primary Care Provider Active Start: August 14, 2024 End: August 14, 2024 Ed Physician Provider Emergency Provider Active Start: August 14, 2024 End: August 14, 2024 Team Status: Active Member Role/Relationship Status Dates David Cummins CHIEF ENGINEER [employer]ING [employer]OVERY, CHIEF ENGINEER [employer]ING [employer]OVERY-C Primary Care Provider Active Team Status: Inactive Member Role/Relationship Status Dates David Cummins CHIEF ENGINEER [employer]LLING [employer]OVERY, CHIEF ENGINEER [employer]LLING [employer]OVERY-C Primary Care Provider Active Start: August 14, 2024 End: August 14, 2024 Ed Physician Provider Attending Provider Active Start: August 14, 2024 End: August 14, 2024 Ed Physician Provider Emergency Provider Active Start: August 14, 2024 End: August 14, 2024 Team Status: Inactive Member Role/Relationship Status Dates David Cummins NP, CHIEF ENGINEER [employer]LLING [employer]OVERY-C Primary Care Provider Active Start: October End: November 02, 2024 JAYDEN DAVIES Attending Provider Active Start: November 02, 2024 End: November 02, 2024 JAYDEN DAVIES Referring Provider Active Start: November 02, 2024 End: November 02, 2024 (unrecognized sect ion and content) No Status Records FoundNo Status Records FoundNo Status Records Found INFORMATION SOURCE (unrecogn ized section and content) DATE CREATED AUTHOR 11/25/2023 [facility] ([place]) DATE CREATED AUTHOR AUTHOR'S ORGANIZ ATION 11/24/2024 [facility] DATE CREATED AUTHOR AUTHOR'S ORGANIZ ATION 01/24/2025 [facility] FOR RECORDS PERTAINING TO PATIENTS WHO ARE [...] BE BASED ON THE PRIMARY CLINICAL RECORDS. [employer] [facility]. provides no warranty or guarantee of the accuracy or completeness of information in this document.
[2025-02-17 14:13] LABS: Creatinine, Urine (random) 117.00 mg/dL (39.00-259.00); Microalbumin,Random Urine 23.3 mg/L (<20 mg/L)
== END | disposition home or self-care (01) ==
LOC: LAB 06:50 → LABSPEC 06:51
PROVIDERS: PCP Nurse Practitioner Family; Referring Provider Nurse Practitioner Family; Visit Provider Nurse Practitioner Family
DX: I10 Essential (primary) hypertension (principal); E11.9 Type 2 diabetes mellitus without complications
CPT/HCPCS: 82043; 82570